=== PATIENT | female | born 1960 | race Caucasian/White ===

== ENCOUNTER 2023-02-19 09:25 | Emergency (ER) | payer MEDICARE, BC, SELFPAY ==
[2023-02-19 09:29] VITALS: BP 142/88; PULSE 82; RESP 18; TEMP 36.9; O2SAT 98; BMI 27.8
--- NOTE | 2023-02-19 09:31 | XR_ITS ---
The [place] [address] Patient Name: TIMOTHY SUAREZ MRN: [id number] date: 1960 Sex: F Assigned Patient Location: ER Current Patient Location: ER Accession/Order Number: [id number] Exam Date: 02/19/2023 09:58 Report Date: 02/19/2023 10:21 At the request of: CARLOS VIRK Procedure: XR wrist LT min 3V STUDY: XR wrist LT min 3V, [id number] HISTORY: INJURY COMPARISON: Correlated with same day forearm x-rays. FINDINGS: No acute fracture, dislocation, or suspicious osseous lesion. Widening of the scapholunate interval with mild advancement of the capitate compatible with scapholunate ligament disruption. Severe osteoarthritis at the first carpometacarpal joint, pnynlshj-qadqzwltk-rhyoudmwm articulation, articulation of the lunate and capitate, and articulation of the scaphoid in the distal radius. There is chondrocalcinosis of the triangular fibrocartilage complex. Multiple well-corticated foci of ossification projecting around wrist which may be the sequela of remote trauma. XR/XR wrist LT min 3V IMPRESSION: No acute osseous abnormality. Electronically authenticated by: LALI ALY Date: 02/19/2023 10:21
--- NOTE | 2023-02-19 09:31 | XR_ITS ---
The [address] [address] Patient Name: TIMOTHY SUAREZ MRN: [id number] date: 1960 Sex: F Assigned Patient Location: ER Current Patient Location: ER Accession/Order Number: [id number] Exam Date: 02/19/2023 09:58 Report Date: 02/19/2023 10:15 At the request of: CARLOS VIRK Procedure: XR forearm LT 2V Exam: Radiographs: XR forearm LT 2V Reason for exam: Injury Comparison: None XR/XR forearm LT 2V IMPRESSION: Widening of the distal radioulnar joint is age indeterminate and could be related to prior injury and/or degenerative change. Advanced left wrist degenerative changes. Left wrist chondrocalcinosis. Remainder of the left forearm is unremarkable. Electronically authenticated by: SINAI ZHENG Date: 02/19/2023 10:15
[2023-02-19 10:07] VITALS: PULSE 88
--- NOTE | 2023-02-19 10:11 | ED.TRAUMA1 ---
HPI - Trauma General Chief Complaint: Extremity Injury, Upper Stated Complaint: ARM PAIN Time Seen by Provider: 02/19/23 10:07 Source: patient Mode of arrival: walk-in Limitations: no limitations History of Present Illness HPI narrative: 63-year-old female presents for an injury to her left arm. Two days ago she was using a battery powered device that mixes up and the blade that turned hit her left, just distal to the elbow. She has pain in the wrist and arm and she noted some redness around wound. Her last tetanus shot was more than ten years ago. It hurts more to move it. Related Data Previous Rx's Medication Instructions Recorded cephalexin 500 mg capsule 500 mg PO QID 10 days #40 caps 02/19/23 Allergies Allergy/AdvReac Type Severity Reaction Status Date / Time Sulfa (Sulfonamide AdvReac Intermediate Verified 02/19/23 09:29 Antibiotics) Review of Systems ROS Narrative A ten point review of systems is negative except as noted above. Exam Narrative Exam Narrative: Nurses note and vital signs reviewed and patient is not hypoxic. General: The patient appears well and in no apparent distress. Patient is resting comfortably on cart. Skin: Warm, dry, no pallor noted. There is no rash noted. Head: Normocephalic, atraumatic Eye: Normal conjunctiva, no drainage Ears, Nose, Mouth, and Throat: oral mucosa is moist. Nares patent. Cardiovascular: Regular Rate and Rhythm Respiratory: Patient is in no distress, no accessory muscle use, lungs are clear to auscultation, no wheezing, rales or rhonchi Back: non-tender GI: soft and nontender Musculoskeletal: left arm is examined. She seems to have some tenderness in her wrist and there is two puncture type wounds on the proximal forearm on the flexor side. There is some mild surrounding erythema extending out approximately 2 inches. . Neurological: A&O, normal speech Psychiatric: Cooperative Constitutional Vital Signs, click to edit/add: Last Vital Signs Temp 98.4 F 02/19/23 09:29 Pulse 88 02/19/23 10:07 Resp 18 02/19/23 09:29 BP 142/88 H 02/19/23 09:29 Pulse Ox 98 02/19/23 09:29 O2 Del Method Room Air 02/19/23 09:29 Course Vital Signs Vital signs: Vital Signs Temperature 98.4 F 02/19/23 09:29 Pulse Rate 82 02/19/23 09:29 Respiratory Rate 18 02/19/23 09:29 Blood Pressure 142/88 H 02/19/23 09:29 Pulse Oximetry 98 02/19/23 09:29 Oxygen Delivery Method Room Air 02/19/23 09:29 Temperature 98.4 F 02/19/23 09:29 Pulse Rate 88 02/19/23 10:07 Respiratory Rate 18 02/19/23 09:29 Blood Pressure 142/88 H 02/19/23 09:29 Pulse Oximetry 98 02/19/23 09:29 Oxygen Delivery Method Room Air 02/19/23 09:29 MDM - Trauma MDM Narrative Medical decision making narrative: X-rays showed no foreign body or definite acute finding. Splint applied, application checked by me and found be appropriate and she is neurovascularly intact. Tetanus updated. She was given IM Ancef and prescribed Keflex. Treatment diagnosis and follow-up were discussed with the patient. Imaging Data left forearm and wrist: Radiologist's impression: Procedure: XR wrist LT min 3V STUDY: XR wrist LT min 3V, [id number] HISTORY: INJURY COMPARISON: Correlated with same day forearm x-rays. FINDINGS: No acute fracture, dislocation, or suspicious osseous lesion. Widening of the scapholunate interval with mild advancement of the capitate compatible with scapholunate ligament disruption. Severe osteoarthritis at the first carpometacarpal joint, xinxsrln-olpnczqqw-vbszgxjnz articulation, articulation of the lunate and capitate, and articulation of the scaphoid in the distal radius. There is chondrocalcinosis of the triangular fibrocartilage complex. Multiple well-corticated foci of ossification projecting around wrist which may be the sequela of remote trauma. IMPRESSION: No acute osseous abnormality. Electronically authenticated by: LALI ALY Date: 02/19/2023 10:21 Procedure: XR forearm LT 2V Exam: Radiographs: XR forearm LT 2V Reason for exam: Injury Comparison: None IMPRESSION: Widening of the distal radioulnar joint is age indeterminate and could be related to prior injury and/or degenerative change. Advanced left wrist degenerative changes. Left wrist chondrocalcinosis. Remainder of the left forearm is unremarkable. Electronically authenticated by: SINAI ZHENG Date: 02/19/2023 10:15 Discharge Plan Discharge Chief Complaint: Extremity Injury, Upper Clinical Impression: Cellulitis of forearm Patient Disposition: Home, Self-Care Time of Disposition Decision: 10:30 Condition: Good Mode of Transportation: Private Vehicle Prescriptions / Home Meds: New cephalexin 500 mg capsule 500 mg PO QID 10 Days Qty: 40 0RF Instructions: Cellulitis (ED) Stand Alone Forms: Portal Instructions Referrals: ASHANTI GARCIA [Primary Care Provider] - 1 week
[2023-02-19] MEDS: ADACEL DIPH,PERTUSS(ACELL),TET VAC/PF 0.5 ML ADULT SYRINGE IM (10:39)
[2023-02-19] MEDS: CEFAZOLIN SODIUM 1,000 MG, WATER FOR INJECTION,STERILE 2.5 ML IM (10:40)
[2023-02-19 10:53] VITALS: BP 126/88; PULSE 72; RESP 16; O2SAT 99
== END 2023-02-19 10:55 | disposition home or self-care (01) ==
PROVIDERS: Emergency Provider Emergency Medicine; PCP Family Medicine
DX: L03.114 Cellulitis of left upper limb (principal); S51.832A Puncture wound without foreign body of left forearm, initial encounter; Z23 Encounter for immunization; W22.8XXA Striking against or struck by other objects, initial encounter
CPT/HCPCS: 73090; 73110; 90471; 90715; 96372; 99284

== ENCOUNTER 2023-07-05 15:19 | Emergency (ER) | payer MEDICARE, BC, SELFPAY ==
[2023-07-05 15:24] VITALS: BP 142/85; PULSE 100; RESP 18; TEMP 36.8; O2SAT 96; BMI 25.1
[2023-07-05] MEDS: FLUORESCEIN SODIUM 1 MG STRIP OP (15:54)
--- NOTE | 2023-07-05 16:09 | ED_ITS ---
HPI - Eye Problem General Chief complaint: Eye Problems Stated complaint: POSS METAL IN EYE Time Seen by Provider: 07/05/23 15:46 Source: patient Mode of arrival: walk-in History of Present Illness HPI Narrative: 63-year-old female presents for right eye discomfort. She was using a Dremel and a piece of metal flew up into her right eye. She flushed it out right away but still has some discomfort. It feels like it is in the medial corner of her eye. No symptoms in the left eye and this happened less than an hour ago. Related Data Home Medications Medication Instructions Recorded Confirmed acyclovir 400 mg tablet 400 mg PO BID 07/05/23 07/05/23 amitriptyline 25 mg tablet 50 mg PO QPM 07/05/23 07/05/23 cyclobenzaprine 10 mg tablet 20 mg PO TID 07/05/23 07/05/23 etanercept 25 mg/0.5 mL 25 mg subcut .BIDWEEK 07/05/23 07/05/23 subcutaneous solution (Enbrel) gabapentin 300 mg capsule 600 mg PO TID 07/05/23 07/05/23 glimepiride 1 mg tablet 1 mg PO QAM 07/05/23 07/05/23 hydrocodone 5 mg-acetaminophen 325 1 tab PO QID 07/05/23 07/05/23 mg tablet lisinopril 40 mg tablet 40 mg PO DAILY 07/05/23 07/05/23 omeprazole 20 mg capsule,delayed 20 mg PO BID 07/05/23 07/05/23 release Previous Rx's Medication Instructions Recorded ciprofloxacin HCl 0.3 % eye drops 2 drp ophthalmic (eye) Q4H 5 days 07/05/23 #5 mL Allergies Allergy/AdvReac Type Severity Reaction Status Date / Time Sulfa (Sulfonamide AdvReac Intermediate Verified 02/19/23 09:29 Antibiotics) Review of Systems ROS Narrative A ten point review of systems is negative except as noted above. Exam Narrative Exam Narrative: Nurses note and vital signs reviewed and patient is not hypoxic. General: The patient appears well and in no apparent distress. Patient is resting comfortably on cart. Skin: Warm, dry, no pallor noted. There is no rash noted. Head: Normocephalic, atraumatic Eye: Normal conjunctiva, no drainage; lid eversion of the right eyes shows no foreign body. Staining and Reich lamp exam as well as slit-lamp exam shows no corneal abrasion or any foreign body anywhere. Ears, Nose, Mouth, and Throat: oral mucosa is moist. Nares patent. Cardiovascular: Regular Rate and Rhythm Respiratory: Patient is in no distress, no accessory muscle use, lungs are benny ar to auscultation, no wheezing, rales or rhonchi Back: non-tender GI: Soft and nontender Musculoskeletal: The patient has no evidence of calf tenderness, no pitting edema, symmetrical pulses noted bilaterally Neurological: A&O, normal speech Psychiatric: Cooperative Constitutional Vital Signs, click to edit/add: Last Vital Signs Temp 98.2 F 07/05/23 15:24 Pulse 100 H 07/05/23 15:24 Resp 18 07/05/23 15:24 BP 142/85 H 07/05/23 15:24 Pulse Ox 96 07/05/23 15:24 O2 Del Method Room Air 07/05/23 15:24 Course Vital Signs Vital signs: Vital Signs Temperature 98.2 F 07/05/23 15:24 Pulse Rate 100 H 07/05/23 15:24 Respiratory Rate 18 07/05/23 15:24 Blood Pressure 142/85 H 07/05/23 15:24 Pulse Oximetry 96 07/05/23 15:24 Oxygen Delivery Method Room Air 07/05/23 15:24 Temperature 98.2 F 07/05/23 15:24 Pulse Rate 100 H 07/05/23 15:24 Respiratory Rate 18 07/05/23 15:24 Blood Pressure 142/85 H 07/05/23 15:24 Pulse Oximetry 96 07/05/23 15:24 Oxygen Delivery Method Room Air 07/05/23 15:24 MDM - Eye Problem MDM Narrative Medical decision making narrative: No foreign body or corneal abrasion is found. Treatment diagnosis and follow-up were discussed with the patient Differential Diagnosis Differential diagnosis: Likely corneal abrasion and other (Foreign body) Discharge Plan Discharge Chief Complaint: Eye Problems Clinical Impression: Acute right eye pain Patient Disposition: Home, Self-Care Time of Disposition Decision: 16:05 Condition: Good Mode of Transportation: Private Vehicle Prescriptions / Home Meds: New ciprofloxacin HCl 0.3 % drops 2 drp ophthalmic (eye) Q4H 5 Days Qty: 5 0RF No Action amitriptyline 25 mg tablet 50 mg PO QPM cyclobenzaprine 10 mg tablet 20 mg PO TID gabapentin 300 mg capsule 600 mg PO TID glimepiride 1 mg tablet 1 mg PO QAM hydrocodone-acetaminophen 5-325 mg tablet 1 tab PO QID lisinopril 40 mg tablet 40 mg PO DAILY omeprazole 20 mg capsule,delayed release(DR/EC) 20 mg PO BID Enbrel 25 mg/0.5 mL solution 25 mg subcut .BIDWEEK acyclovir 400 mg tablet 400 mg PO BID Instructions: Eye Pain (ED) Stand Alone Forms: Portal Instructions Referrals: ASAHNTI GARCIA [Primary Care Provider] - 1 week
== END 2023-07-05 16:18 | disposition home or self-care (01) ==
PROVIDERS: Emergency Provider Emergency Medicine; PCP Family Medicine
DX: H57.11 Ocular pain, right eye (principal); Z79.899 Other long term (current) drug therapy
CPT/HCPCS: 99283

== ENCOUNTER 2025-01-19 14:34 | Emergency (ER) | payer MEDICARE, BC, SELFPAY ==
[2025-01-19 14:40] VITALS: BP 163/91; PULSE 107; TEMP 36.9; O2SAT 96; BMI 23.5
--- NOTE | 2025-01-19 14:50 | XR_ITS ---
[facility] [place] [id number] Patient Name: TIMOTHY SUAREZ MRN: [id number] date: 1960 Sex: F Assigned Patient Location: ER Current Patient Location: ER Accession/Order Number: [id number] Exam Date: 01/19/2025 15:22 Report Date: 01/19/2025 15:24 At the request of: JUNIOR ESPITIA DO Procedure: XR wrist RT min 3V 3 views right wrist plain film COMPARISON: None HISTORY: Acute right wrist pain injury. ACUTE FINDINGS: None DEGENERATIVE CHANGE: Extensive degeneration greatest in the first carpometacarpal region., Calcinosis. SOFT TISSUE FINDINGS: Unremarkable JOINT EFFUSION: None POSTOP CHANGES: None BONE MINERALIZATION: Adequate XR/XR wrist RT min 3V IMPRESSION: No acute bony findings. Impression dictated by: Theodore Schumacher M.D. 01/19/2025 3:24 PM Dictation Location: [place] [address] Electronically authenticated by: [id number] Y Date: 01/19/2025 15:24
[2025-01-19] MEDS: KETOROLAC TROMETHAMINE 30 MG/ML VIAL IM (15:23)
--- NOTE | 2025-01-19 15:43 | ED.UPPEXIN1 ---
HPI HPI - Extremity Injury (Upper) General Chief Complaint: Extremity Injury, Upper Stated Complaint: R ARM PAIN Time Seen by Provider: 01/19/25 14:41 Source: patient Mode of arrival: walk-in Limitations: no limitations History of Present Illness HPI narrative: Patient is a 64-year-old kyzlk-dupv-xevzdnde female who presents to the emergency department for entire right upper extremity discomfort. States that she was putting a screw inside of a deck board when it caught her work glove and she could not get her finger off of the trigger for the drill and it continued to wrap her arm around. She felt like she tore every ligament and muscle in her arm. She has full range of motion to the arm she feels like she disarticulated the wrist and thumb right off of her hand. 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 She does not want to violate her contract. Patient did not take anything additional for pain prior to coming in. Pain radiates from her wrist down into her hand and up into her shoulder. Related Data Home Medications ?Medication ?Instructions ?Recorded ?Confirmed acyclovir 400 mg tablet 400 mg PO BID 07/05/23 07/05/23 amitriptyline 25 mg tablet 50 mg PO QPM 07/05/23 07/05/23 cyclobenzaprine 10 mg tablet 20 mg PO TID 07/05/23 07/05/23 etanercept 25 mg/0.5 mL 25 mg subcut .BIDWEEK 07/05/23 07/05/23 subcutaneous solution (Enbrel) gabapentin 300 mg capsule 600 mg PO TID 07/05/23 07/05/23 glimepiride 1 mg tablet 1 mg PO QAM 07/05/23 07/05/23 hydrocodone 5 mg-acetaminophen 325 1 tab PO QID 07/05/23 07/05/23 mg tablet lisinopril 40 mg tablet 40 mg PO DAILY 07/05/23 07/05/23 omeprazole 20 mg capsule,delayed 20 mg PO BID 07/05/23 07/05/23 release Previous Rx's ?Medication ?Instructions ?Recorded ciprofloxacin HCl 0.3 % eye drops 2 drp ophthalmic (eye) Q4H 5 days 07/05/23 #5 mL Allergies Allergy/AdvReac Type Severity Reaction Status Date / Time Sulfa (Sulfonamide AdvReac Intermediate Verified 02/19/23 09:29 Antibiotics) Opioid HPI Opioid Management Most Recent Pain and Opioid Data: Last Pain Scale 7 Today, 15:28 Last MAR Pain Assessment Today, 15:23 Review of Systems ROS Narrative 10 Systems were reviewed, and unless noted in the HPI, all other systems are reviewed, unremarkable, or noncontributory. PFSH PFS Social History Little interest or pleasure in doing things: not at all Feeling down, depressed, or hopeless: not at all Exam Narrative Exam Narrative: Prior to examining the patient, I have washed with hospital approved and provided Antiseptic Hand Lye Treater and have also applied gloves.? Prior to touching the patient, I asked for consent to examine the patient.? General: Alert and oriented, well nourished, mild distress. Eye: PERRL, EOMI, normal conjunctiva. HENT: Normocephalic, normal hearing, moist oral mucosa, no scleral icterus, no sinus tenderness. Lungs: Clear to auscultation and percussion, non-labored respiration. Heart: Normal rate, regular rhythm, no murmur, gallop or edema. Musculoskeletal: Normal range of motion and strength, no tenderness or swelling. Normal range of motion albeit painful range of motion. I do not appreciate any edema or gross deformity. Patient does have pain to palpation to the wrist and distal forearm. Skin: Skin is warm, dry and pink, no rashes or lesions. Neurologic: Awake, alert, and oriented X3, CN II-XII intact. Psychiatric: Cooperative, appropriate mood and affect.? Following the conclusion of the examination, I have washed my hands thoroughly after removing examination gloves. Constitutional Vital Signs, click to edit/add: Last Vital Signs Temp 98.4 F 01/19/25 14:40 Pulse 107 H 01/19/25 14:40 Resp 18 01/19/25 14:40 BP 163/91 H 01/19/25 14:40 Pulse Ox 96 01/19/25 14:40 O2 Del Method Room Air 01/19/25 14:40 Course Reevaluation(s) Reevaluation #1: Pain that was evaluated by me. I did review the board-certified radiologist report. She has a lot of degenerative changes of the bone and calcinosis but no evidence of fractures or dislocations. Went back and described this to the patient. Patient understands that ligaments will not be visualized nor tendons on a regular x-ray. Patient wants to see an orthopedic surgeon in the emergency department to make sure that she is not going to develop any limitations in range of motion. I did tell the patient that that is not possible in the emergency department that we could give her a referral but that they would not be coming to the emergency department. There is no need for emergent transfer at this time. I offered the patient a brace to keep her hand stabilized and she said that she had braces at home that she was not interested in getting another one here. 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 She genuinely is afraid of losing function of her right upper extremity because her left wrist has a lot of arthritis it is cause some limitations in her strength and range of motion. Time: 15:44 Vital Signs Vital signs: Vital Signs Temperature 98.4 F 01/19/25 14:40 Pulse Rate 107 H 01/19/25 14:40 Respiratory Rate 18 01/19/25 14:40 Blood Pressure 163/91 H 01/19/25 14:40 Pulse Oximetry 96 01/19/25 14:40 Oxygen Delivery Method Room Air 01/19/25 14:40 Temperature 98.4 F 01/19/25 14:40 Pulse Rate 107 H 01/19/25 14:40 Respiratory Rate 18 01/19/25 14:40 Blood Pressure 163/91 H 01/19/25 14:40 Pulse Oximetry 96 01/19/25 14:40 Oxygen Delivery Method Room Air 01/19/25 14:40 MDM - Extremity Injury (Upper) MDM Narrative Medical decision making narrative: In summary, the patient had a mechanical injury to her right upper extremity. She is right-hand dominant. No fracture, dislocation, subluxation is appreciated. Patient will likely need to follow-up with an orthopedic surgeon or primary medical physician to obtain physical therapy and or an MRI for continued diagnostics. Patient blames not getting imaging on an injury she had many years ago and is now having problems. Differential Diagnosis Differential diagnosis: Likely sprain and strain of wrist, fracture of wrist, finger sprain, dislocation of finger, fracture of hand and dislocation of shoulder Medical Records Attestation: I reviewed the patient's medical records. Imaging Data XR Wrist: Radiologist's impression: ITS Impressions Wrist X-Ray 01/19/25 14:50 IMPRESSION: No acute bony findings. Impression dictated by: Theodore Schumacher M.D. 01/19/2025 3:24 PM [facility] Electron[facility] authenticated by: [id number] Y Date: 01/19/2025 15:24 Discharge Plan Discharge Chief Complaint: Extremity Injury, Upper Clinical Impression: Strain of tendon of upper extremity, Injury of wrist, right Patient Disposition: Home, Self-Care Time of Disposition Decision: 15:48 Condition: Good Mode of Transportation: Private Vehicle Prescriptions / Home Meds: No Action amitriptyline 25 mg tablet 50 mg PO QPM cyclobenzaprine 10 mg tablet 20 mg PO TID gabapentin 300 mg capsule 600 mg PO TID glimepiride 1 mg tablet 1 mg PO QAM hydrocodone-acetaminophen 5-325 mg tablet 1 tab PO QID lisinopril 40 mg tablet 40 mg PO DAILY omeprazole 20 mg capsule,delayed release(DR/EC) 20 mg PO BID Enbrel 25 mg/0.5 mL solution 25 mg subcut .BIDWEEK acyclovir 400 mg tablet 400 mg PO BID ciprofloxacin HCl 0.3 % drops 2 drp ophthalmic (eye) Q4H 5 Days Qty: 5 0RF Print Language: Finnish Instructions: Muscle Strain (DC), Wrist Sprain (ED) Referrals: ASHANTI GARCIA [Primary Care Provider, Family Practice] - 1 week Discharge Date/Time: 01/19/25 16:17
--- NOTE | 2025-01-19 16:16 | PC.NURSE ---
upon entry to pts room, room found to be empty. pt was discharged home per Dr. Arboleda, pt left prior to receiving discharge papers.
--- OUTSIDE RECORDS SUMMARY | 2025-01-19 16:19 | XMS_ITS | CCD ---
Author Organization [facility] Inform ion Partnership [facility] Care Team Providers Care Training Mgr Name Role Phone Allsop Katie CHAUDHARY Primary Care Provider [phone] Danni Sharp Unavailable AllsoKatie barkley DO Primary Care Provider AllsoKatie barkley DO Primary Care Provider [phone] Allsop DOKatie Primary Care Provider RAFAELA CASH Referring Unavailable DEAN, PARISH Primary Care Unavailable Allsop DOKatie Primary Care Provider Unav ailable Allsop DOKatie Primary Care Provider Unav ailable Dean LOAD MANAGER-VETERINARY ASSISTANT, Parish Primary Care Provider Dean LOAD MANAGER-VETERINARY ASSISTANT, Parish Primary Care Provider Allsop DOKatie Primary Care Provider Pcp, Not In System Primary Care Provider Unavail able Unavailable Primary Care Provider Unavailabl e Dean LOAD MANAGER-VETERINARY ASSISTANT, [place] Primary Care Provider DEAN, PARISH Attending Unavailable DEAN, PARISH Primary Care Unavailable DEAN, PARISH Attending Unavailable DEAN, PARISH Referring Unavailable DEAN, PARISH Primary Care Unavailable DEAN, PARISH Attending Unavailable DEAN, PARISH Referring Unavailable DEAN, PARISH Primary Care Unavailable DEAN, PARISH Attending Unavailable DEAN, PARISH Referring Unavailable DEAN, PARISH Primary Care Unavailable SHANNA JOHNSON Attending Unavailable JOHNSON, SHANNA W Attending Unavailable JOHNSON, SHANNA W Referring Unavailable JOHNSON, SHANNA W Attending Unavailable ELIANA TORRES Attending Unavailab le ALLSOP, KATIE MARYAM Primary Care Unavailab EUGENIO Garzon Attending Unavailable ALLSOP, KATIE MARYAM Primary Care Unavailab le EUGENIO ELLIS Attending Unavailable DEAN, PARISH Referring Unavailable DEAN, PARISH Primary Care Unavailable DEAN, PARISH Primary Care Unavailable RAFAELA CASH Attending Unavailable ALLSOPKATIE Referring Unavailable DEAN, PARISH Primary Care Unavailable SKY HEMPHILL Admitting Unavailable SKY HEMPHILL Attending Unavailable ALLSOPKATIE Referring Unavailable DEAN, PARISH Primary Care Unavailable SKY HEMPHILL Attending Unavailable SKY HEMPHILL Referring Unavailable DEAN, PARISH Referring Unavailable DEAN, PARISH Primary Care Unavailable NICAROL, RAFAELA Terrazas Attending Unavailable DEAN, PARISH Primary Care Unavailable EUGENIO ELLIS Referring Unavailable DEAN, PARISH Primary Care Unavailable SKY HEMPHILL Attending Unavailable SKY HEMPHILL Referring Unavailable DEAN, PARISH Referring Unavailable DEAN, PARISH Primary Care Unavailable SKY HEMPHILL Attending Unavailable SKY HEMPHILL Admitting Unavailable DEAN, PARISH Referring Unavailable DEAN, PARISH Primary Care Unavailable NICAROL, RAFAELA Terrazas Attending Unavailable DEAN, PARISH Primary Care Unavailable DEAN, PARISH Referring Unavailable SKY HMEPHILL Admitting Unavailable SKY HEMPHILL Attending Unavailable DEAN, PARISH Primary Care Unavailable SKY HEMPHILL Attending Unavailable SKY HEMPHILL Referring Unavailable DEAN, PARISH Primary Care Unavailable DEAN, PARISH Primary Care Unavailable DEAN, PARISH Referring Unavailable NIRAFAELA NAJERA Attending Unavailable DEAN, PARISH Primary Care Unavailable DEAN, PARISH Referring Unavailable SKY HEMPHILL Admitting Unavailable SKY HEMPHILL Attending Unavailable DEAN, PARISH Primary Care Unavailable SKY HEMPHILL Attending Unavailable SKY HEMPHILL Referring Unavailable DEAN, PARISH Primary Care Unavailable DEAN, PARISH Referring Unavailable NIRAFAELA NAJERA Attending Unavailable DEAN, PARISH Primary Care Unavailable ANNETTE CASHEW S Referring Unavailable NICAROL, RAFAELA Terrazas Attending Unavailable DEAN, PARISH Referring Unavailable DEAN, PARISH Primary Care Unavailable SKY HEMPHILL Admitting Unavailable SKY HEMPHILL Attending Unavailable DEAN, PARISH Primary Care Unavailable HEMPHILL, SKY Mosqueda Attending Unavailable HEMPHILLSKY BURNS Referring Unavailable CALEBEUGENIO Referring Unavailable DEAN, PARISH Primary Care Unavailable DEAN, PARISH Referring Unavailable DEAN, PARISH Primary Care Unavailable NIENBERG, RAFAELA Terrazas Attending Unavailable DEAN, PARISH Referring Unavailable DEAN, PARISH Primary Care Unavailable HEMPHILLSKY Attending Unavailable HEMPHILL, SKY Mosqueda Admitting Unavailable DEAN, PARISH Primary Care Unavailable SKY HEMPHILL Referring Unavailable HEMPHILLSKY Attending Unavailable DEAN, PARISH Primary Care Unavailable NIENBERG, RAFAELA Terrazas Attending Unavailable NIENBERG, RAFAELA Terrazas Referring Unavailable DEAN, PARISH Referring Unavailable DEAN, PARISH Primary Care Unavailable NIENBERG, RAFAELA Terrazas Attending Unavailable DEAN, PARISH Referring Unavailable DEAN, PARISH Primary Care Unavailable SKY HEMPHILL Attending Unavailable HEMPHILLSKY BURNS Admitting Unavailable DEAN, PARISH Primary Care Unavailable SKY HEMPHILL Referring Unavailable HEMPHILLSKY Attending Unavailable DEAN, PARISH Referring Unavailable DEAN, PARISH Primary Care Unavailable NIENBERG, RAFAELA Terrazas Attending Unavailable DEAN, PARISH Primary Care Unavailable NICAROL, RAFAELA Terrazas Attending Unavailable NICAROL, RAFAELA Terrazas Referring Unavailable CALEBSABAST Referring Unavailable DEAN, PARISH Primary Care Unavailable DEAN, PARISH Referring Unavailable DEAN, PARISH Primary Care Unavailable SKY HEMPHILL Admitting Unavailable SKY HEMPHILL Attending Unavailable DEAN, PARISH Primary Care Unavailable SKY HEMPHILL Referring Unavailable HEMPHILLSKY Attending Unavailable DEAN, PARISH Referring Unavailable DEAN, PARISH Primary Care Unavailable NIENBERG, RAFAELA Terrazas Attending Unavailable DEAN, PARISH Primary Care Unavailable Allergies Allergy Classification Reported Allergen(s) Allergy Type Date of Onset Reaction(s) Facility Cinnamon Preparation (4 sources) Cinnamon Preparation Drug Allergy 03-06-20 14 Swelling [facility] Coconut extract (4 sources) Coconut extract Drug Allergy 12-16-19 16 GI Upset [facility] Dust (4 sources) Dust Substance Allergy 06-29-19 11 Other: See Comments [facility] Work Phone: Lactase (4 sources) Lactase Drug Allergy 08-06-19 14 GI Upset [facility] leflunomide (4 sources) leflunomide Drug Allergy 08-24-19 21 Intolerance [facility] Work Phone: Shellfish (4 sources) Shellfish Food Allergy 06-29-19 11 Other: See Comments [facility] sulfaSALAzine (4 sources) sulfaSALAzine Drug Allergy 12-05-19 12 Unknown [facility] Work Phone: (20 sources) Cinnamon Preparation; Translations: [CINNAMON] Drug Allergy 03-06-20 14 Swelling [facility] (20 sources) Coconut extract; Translations: [COCONUT] Drug Allergy 12-16-19 16 GI Upset, Swelling [facility] (20 sources) Dust; Translations: [DUST] Allergy to substance 06-29-19 11 Other: See Comments [facility] Work Phone: (20 sources) Lactase; Translations: [LACTASE] Drug Allergy 08-06-19 14 GI Upset, GI Disturbance [facility] (20 sources) leflunomide; Translations: [LEFLUNOMIDE] Drug Allergy 08-24-19 21 Intolerance [facility] Work Phone: (20 sources) Shellfish; Translations: [Shellfish] Food Allergy 06-29-19 11 Other: See Comments [facility] Work Phone: (20 sources) sulfaSALAzine; Translations: [SULFASALAZINE] Drug Allergy 12-05-19 12 Unknown [facility] Work Phone: (20 sources) Tree; Translations: [TREES] Allergy to substance 06-29-19 11 Unknown [facility] Work Phone: (20 sources) Propoxyphene N-Acetaminophen; Translations: [PROPOXYPHENE N-ACETAMINOPHEN] Drug Intolerance 08-30-19 11 Other: See Comments, Other (See Comments) [facility] (20 sources) tree nuts [Other] Propensity to adverse reactions 06-29-19 11 Other: See Comments [facility] Work Phone: (20 sources) Acetaminophen / oxyCODONE Drug Allergy 07-20-[address] [facility] (1 source) Acetaminophen / Propoxyphene Drug Allergy Unknown [facility] Other (1 source) Sulfonamides (Antibiotic) Propensity to adverse reactions rash [facility] Other (1 source) Tree nuts/ coconut Propensity to adverse reactions vomiting [facility] Other (20 sources) tree nut, unspecified; Translations: [TREE NUTS] Drug Intolerance 10-20-19 17 Intolerance, Abdominal Pain [facility] (14 sources) Acetaminophen / oxyCODONE; Translations: [OXYCODONE-ACETA MINOPHEN] Drug Allergy 07-20-19 22 [facility] (20 sources) house dust allergenic extract; Translations: [HOUSE DUST] Drug Allergy 06-29-19 11 [facility] (20 sources) Sulfonamides (Antibiotic); Translations: [SULFA (SULFONAMIDE ANTIBIOTICS)] Propensity to adverse reactions to drug (disorder) 10-20-19 17 Anaphylaxis [facility] (20 sources) tiZANidine; Translations: [TIZANIDINE (BULK)] Drug Allergy 10-20-19 17 Abdominal Pain [facility] (3 sources) CINNAMON ANALOGUES; Translations: [CINNAMON ANALOGUES] Propensity to adverse reactions to food (disorder) 10-20-19 17 [facility] (20 sources) SHELLFISH CONTAINING PRODUCTS; Translations: [SHELLFISH CONTAINING PRODUCTS] Propensity to adverse reactions to food (disorder) 10-20-19 17 Abdominal Pain [facility] (11 sources) Coconut extract Drug Allergy 12-16-19 16 [facility] (11 sources) House dust mite Propensity to adverse reactions 06-29-19 11 [facility] (11 sources) leflunomide Drug Allergy 08-24-19 21 [facility] (11 sources) Propoxyphene Drug Allergy 08-30-19 11 [facility] (11 sources) Sulfasalazine Propensity to adverse reactions 12-05-19 12 [facility] (11 sources) Sulfonamides (Antibiotic) Drug Intolerance 10-20-19 17 Anaphylaxis, Rash [facility] (11 sources) tiZANidine Drug Allergy 10-20-19 17 [facility] (11 sources) Coconut Fatty Acid Propensity to adverse reactions 12-16-19 16 Swelling [facility] (11 sources) Other Propensity to adverse reactions 10-20-19 17 GI intolerance [facility] (11 sources) Shellfish-Derive d Products Drug Allergy 03-22-20 23 [facility] Medications Current Medications Medication Drug Class(es) Dates Sig (Normalized) Sig (Original) acetaminophen 500 mg oral tablet (17 sources) take 2 tablets by mouth once daily as needed for pain acetaminophen (TYLENOL EXTRA STRENGTH) 500 mg tablet Take 2 tablets (1,000 mg total) by mouth nightly as needed for pain. Active acetaminophen 325 mg / HYDROcodone bitartrate 5 mg oral tablet (20 sources) Opioid Agonist Start: 01-05-2025 HYDROcodone-acetami nophen (NORCO) 5-325 mg per tablet Indications: Lumbosacral spondylosis without myelopathy Take 1 tablet by mouth 4 (four) times a day as needed for pain. Max Daily Amount: 4 tablets 120 tablet 01/05/2025 Active Start: 01-05-2025 HYDROcodone-ac etaminophen (NORCO) 5-325 mg per tablet Indications: Lumbosacral spondylosis without myelopathy Take 1 tablet by mouth 4 (four) times a day as needed for pain. Max Daily Amount: 4 tablets 120 tablet 01/05/2025 Active Start: 12-06-2024 End: 01-01-2025 HYDROcodone-acetaminophen (N ORCO) 5-325 mg per tablet Indications: Lumbosacral spondylosis without myelopathy Take 1 tablet by mouth 4 (four) times a day as needed for pain. Max Daily Amount: 4 tablets 120 tablet 12/06/2024 01/01/2025 Discontinued (Reorder) Start: 12-06-2024 HYDROcodone-ac etaminophen (NORCO) 5-325 mg per tablet Indications: Lumbosacral spondylosis without myelopathy Take 1 tablet by mouth 4 (four) times a day as needed for pain. Max Daily Amount: 4 tablets 120 tablet 12/06/2024 Active Start: 11-06-2024 End: 11-25-2024 HYDROcodone-acetaminophen (N ORCO) 5-325 mg per tablet Indications: Lumbosacral spondylosis without myelopathy Take 1 tablet by mouth 4 (four) times a day as needed for pain. Max Daily Amount: 4 tablets 120 tablet 11/06/2024 11/25/2024 Discontinued (Reorder) Start: 11-06-2024 End: 11-04-2024 HYDROcodone-acetaminophen (N ORCO) 5-325 mg per tablet Indications: Lumbosacral spondylosis without myelopathy Take 1 tablet by mouth 4 (four) times a day as needed for pain. Max Daily Amount: 4 tablets 120 tablet 11/06/2024 11/04/2024 Discontinued (Reorder) Start: 10-05-2024 End: 10-02-2024 HYDROcodone-acetaminophen (N ORCO) 5-325 mg per tablet Indications: Lumbosacral spondylosis without myelopathy Take 1 tablet by mouth 4 (four) times a day as needed for pain. Max Daily Amount: 4 tablets 120 tablet 10/05/2024 10/02/2024 Discontinued (Reorder) Start: 10-05-2024 HYDROcodone-ac etaminophen (NORCO) 5-325 mg per tablet Indications: Lumbosacral spondylosis without myelopathy Take 1 tablet by mouth 4 (four) times a day as needed for pain. Max Daily Amount: 4 tablets 120 tablet 10/05/2024 Active Start: 10-05-2024 HYDROcodone-ac etaminophen (NORCO) 5-325 mg per tablet Indications: Lumbosacral spondylosis without myelopathy Take 1 tablet by mouth 4 (four) times a day as needed for pain. Max Daily Amount: 4 tablets 120 tablet 10/05/2024 Active Start: 09-05-2024 End: 09-23-2024 HYDROcodone-acetaminophen (N ORCO) 5-325 mg per tablet Indications: Lumbosacral spondylosis without myelopathy Take 1 tablet by mouth 4 (four) times a day as needed for pain. Max Daily Amount: 4 tablets 120 tablet 09/05/2024 09/23/2024 Discontinued (Reorder) Start: 09-05-2024 HYDROcodone-ac etaminophen (NORCO) 5-325 mg per tablet Indications: Lumbosacral spondylosis without myelopathy Take 1 tablet by mouth 4 (four) times a day as needed for pain. Max Daily Amount: 4 tablets 120 tablet 09/05/2024 Active Start: 08-06-2024 End: 09-02-2024 HYDROcodone-acetaminophen (N ORCO) 5-325 mg per tablet Indications: Lumbosacral spondylosis without myelopathy Take 1 tablet by mouth 4 (four) times a day as needed for pain. Max Daily Amount: 4 tablets 120 tablet 08/06/2024 09/02/2024 Discontinued (Reorder) Start: 08-06-2024 HYDROcodone-ac etaminophen (NORCO) 5-325 mg per tablet Indications: Lumbosacral spondylosis without myelopathy Take 1 tablet by mouth 4 (four) times a day as needed for pain. Max Daily Amount: 4 tablets 120 tablet 08/06/2024 Active Start: 07-06-2024 End: 08-01-2024 HYDROcodone-acetaminophen (N ORCO) 5-325 mg per tablet Indications: Lumbosacral spondylosis without myelopathy Take 1 tablet by mouth 4 (four) times a day as needed for pain. Max Daily Amount: 4 tablets 120 tablet 07/07/2024 08/01/2024 Discontinued (Reorder) Start: 07-06-2024 HYDROcodone-ac etaminophen (NORCO) 5-325 mg per tablet Indications: Lumbosacral spondylosis without myelopathy Take 1 tablet by mouth 4 (four) times a day as needed for pain. 07/06/2024 fill date Max Daily Amount: 4 tablets 120 tablet 07/06/2024 Active Start: 04-06-2024 End: 06-26-2024 HYDROcodone-acetaminophen (N ORCO) 5-325 mg per tablet Indications: Lumbosacral spondylosis without myelopathy Take 1 tablet by mouth 4 (four) times a day as needed for pain. Max Daily Amount: 4 tablets 120 tablet 05/07/2024 Active Start: 04-06-2024 HYDROcodone-ac etaminophen (NORCO) 5-325 mg per tablet Indications: Lumbosacral spondylosis without myelopathy Take 1 tablet by mouth 4 (four) times a day as needed for pain. Max Daily Amount: 4 tablets 120 tablet 04/06/2024 Active Start: 03-07-2024 End: 03-21-2024 HYDROcodone-acetaminophen (N ORCO) 5-325 mg per tablet Indications: Lumbosacral spondylosis without myelopathy Take 1 tablet by mouth 4 (four) times a day as needed for pain. Max Daily Amount: 4 tablets 120 tablet 03/07/2024 03/21/2024 Discontinued (Reorder) Start: 03-07-2024 HYDROcodone-ac etaminophen (NORCO) 5-325 mg per tablet Indications: Lumbosacral spondylosis without myelopathy Take 1 tablet by mouth 4 (four) times a day as needed for pain. Max Daily Amount: 4 tablets 120 tablet 03/07/2024 Active Start: 02-06-2024 End: 03-04-2024 HYDROcodone-acetaminophen (N ORCO) 5-325 mg per tablet Indications: Lumbosacral spondylosis without myelopathy Take 1 tablet by mouth 4 (four) times a day as needed for pain. Max Daily Amount: 4 tablets 120 tablet 02/06/2024 03/04/2024 Discontinued (Reorder) Start: 02-06-2024 HYDROcodone-ac etaminophen (NORCO) 5-325 mg per tablet Indications: Lumbosacral spondylosis without myelopathy Take 1 tablet by mouth 4 (four) times a day as needed for pain. Max Daily Amount: 4 tablets 120 tablet 02/06/2024 Active Start: 01-05-2024 End: 02-01-2024 HYDROcodone-acetaminophen (N ORCO) 5-325 mg per tablet Indications: Lumbosacral spondylosis without myelopathy Take 1 tablet by mouth 4 (four) times a day as needed for pain. Max Daily Amount: 4 tablets 120 tablet 01/05/2024 02/01/2024 Discontinued (Reorder) Start: 01-05-2024 HYDROcodone-ac etaminophen (NORCO) 5-325 mg per tablet Indications: Lumbosacral spondylosis without myelopathy Take 1 tablet by mouth 4 (four) times a day as needed for pain. Max Daily Amount: 4 tablets 120 tablet 01/05/2024 Active Start: 12-06-2023 End: 12-25-2023 HYDROcodone-acetaminophen (N ORCO) 5-325 mg per tablet Indications: Lumbosacral spondylosis without myelopathy Take 1 tablet by mouth 4 (four) times a day as needed for pain. Max Daily Amount: 4 tablets 120 tablet 12/06/2023 12/25/2023 Discontinued (Reorder) Start: 12-06-2023 End: 12-03-2023 HYDROcodone-acetaminophen (N ORCO) 5-325 mg per tablet Indications: Lumbosacral spondylosis without myelopathy Take 1 tablet by mouth 4 (four) times a day as needed for pain. Max Daily Amount: 4 tablets 120 tablet 12/06/2023 12/03/2023 Discontinued Start: 12-06-2023 HYDROcodone-ac etaminophen (NORCO) 5-325 mg per tablet Indications: Lumbosacral spondylosis without myelopathy Take 1 tablet by mouth 4 (four) times a day as needed for pain. Max Daily Amount: 4 tablets 120 tablet 12/06/2023 Active Start: 10-06-2023 End: 11-30-2023 HYDROcodone-acetaminophen (N ORCO) 5-325 mg per tablet Indications: Lumbosacral spondylosis without myelopathy Take 1 tablet by mouth 4 (four) times a day as needed for pain. Max Daily Amount: 4 tablets 120 tablet 11/06/2023 11/30/2023 Discontinued (Reorder) Start: 10-06-2023 HYDROcodone-ac etaminophen (NORCO) 5-325 mg per tablet Indications: Lumbosacral spondylosis without myelopathy Take 1 tablet by mouth 4 (four) times a day as needed for pain. Max Daily Amount: 4 tablets 120 tablet 10/06/2023 Active Start: 08-06-2023 End: 10-03-2023 HYDROcodone-acetaminophen (N ORCO) 5-325 mg per tablet Indications: Lumbosacral spondylosis without myelopathy Take 1 tablet by mouth 4 (four) times a day as needed for pain. Max Daily Amount: 4 tablets 120 tablet 09/06/2023 10/03/2023 Discontinued (Reorder) Start: 08-06-2023 HYDROcodone-ac etaminophen (NORCO) 5-325 mg per tablet Indications: Lumbosacral spondylosis without myelopathy Take 1 tablet by mouth 4 (four) times a day as needed for pain. Max Daily Amount: 4 tablets 120 tablet 0 08/06/2023 Active Start: 07-07-2023 End: 08-02-2023 HYDROcodone-acetaminophen (N ORCO) 5-325 mg per tablet Indications: Lumbosacral spondylosis without myelopathy Take 1 tablet by mouth 4 (four) times a day as needed for pain. Max Daily Amount: 4 tablets 120 tablet 0 07/07/2023 08/02/2023 Discontinued (Reorder) Start: 07-07-2023 HYDROcodone-ac etaminophen (NORCO) 5-325 mg per tablet Indications: Lumbosacral spondylosis without myelopathy Take 1 tablet by mouth 4 (four) times a day as needed for pain. Max Daily Amount: 4 tablets 120 tablet 0 07/07/2023 Active Start: 06-07-2023 End: 07-03-2023 HYDROcodone-acetaminophen (N ORCO) 5-325 mg per tablet Indications: Lumbosacral spondylosis without myelopathy Take 1 tablet by mouth 4 (four) times a day as needed for pain. Max Daily Amount: 4 tablets 120 tablet 0 06/07/2023 07/03/2023 Discontinued (Reorder) Start: 06-07-2023 HYDROcodone-ac etaminophen (NORCO) 5-325 mg per tablet Indications: Lumbosacral spondylosis without myelopathy Take 1 tablet by mouth 4 (four) times a day as needed for pain. Max Daily Amount: 4 tablets 120 tablet 0 06/07/2023 Active Start: 03-06-2023 End: 05-31-2023 take 1 tablet by mouth four times daily as needed for pain HYDROcodone-acetaminophen ([place]) 5-325 MG tablet Take 1 tablet by mouth 4 (four) times a day as needed for severe pain or moderate pain. 03/06/2023 Active Start: 12-16-2015 take 1 tablet by roland th every eight hours HYDROcodone-Acetaminophen 5-325 MG 1 tab let as needed Oral 3 times a day arthrits pain Dec, Active take 1 tablet by roland th every eight hours as needed HYDROcodone-acetaminophen (NORCO) 5-325 mg per tablet Take 1 tablet by mouth every 8 hours as needed. Active Comment on above: Take 1 tablet by roland th every 8 hours as needed. acyclovir 400 mg oral tablet (20 sources) Herpesvirus Nucleoside Analog DNA Polymerase Inhibitor, Herpes Simplex Virus Nucleoside Analog DNA Polymerase Inhibitor, Herpes Zoster Virus Nucleoside Analog DNA Polymerase Inhibitor Start: 12-19-2022 End: 02-16-2023 take 1 tablet by mouth in the morning acyclovir (Zovirax) 400 MG tablet Take 400 mg by mouth in the morning and 400 mg before bedtime. 03/17/2024 Active End: 12-19-2022 take 1 capsule by mouth twice daily acyclovir (ZOVIRAX) 200 mg capsule Take 200 mg by mouth twice daily. 0 12/19/2022 Discontinued Comment on above: Take 200 mg by mouth twice daily. Take 1 tablet by roland th twice daily. take 1 tablet by roland th twice a day amitriptyline hydrochloride 25 mg oral tablet (20 sources) Tricyclic Antidepressant Start: 08-26-19 End: 11-14-19 take 2 tablets by mouth once daily at bedtime amitriptyline (ELAVIL) 25 mg tablet Indications: Chronic bilateral low back pain with bilateral sciatica Take 2 tablets by mouth daily at bedtime. 180 tablet 11/13/2024 Active Start: 07-25-2022 End: 08-22-2024 take 2 tablets by mouth once daily at bedtime amitriptyline (ELAVIL) 25 mg tablet Indications: Chronic bilateral low back pain with bilateral sciatica Take 2 tablets by mouth daily at bedtime. 180 tablet 3 02/11/2024 08/22/2024 Discontinued Start: 01-19-2021 End: 02-20-2022 take 2 tablets by mouth once daily at bedtime amitriptyline (ELAVIL) 25 mg tablet Indications: Chronic bilateral low back pain with bilateral sciatica Take 2 tablets by mouth daily at bedtime. 60 tablet 3 02/21/2022 Active Start: 06-04-2009 take 1 tablet by roland th once daily as needed for sleep amitriptyline (ELAVIL) 25 mg tablet Indications: Lumbosacral spondylosis without myelopathy Take 1 tablet (25 mg total) by mouth nightly as needed for sleep. 30 tablet 5 10/21/2019 Active Comment on above: Take 2 tablets by mo ut daily at bedtime. take 2 tablets by mo uth daily at bedtime biotin 10 mg oral capsule (20 sources) Biotin 10,000 mc g cap Take by mouth twice daily. Active take 1 capsule by mouth in the m orning biotin 10 MG capsule Take 1 capsule by mouth in the morning and 1 capsule in the evening. Active take 2 tablets by mouth in the m orning biotin 10 mg tablet Take 20 mg by mouth in the morning and 20 mg before bedtime. Active take 1 tablet by roland th every twenty-four hours Biotin 1000 MCG 1 tablet Orally Once a d ay Active Comment on above: Take by mouth twice daily. 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 Active colchicine 0.6 mg oral tablet (20 sources) Start: 10-14-19 take 1 tablet by mouth twice daily colchicine 0.6 mg tablet Indications: Pseudogout involving multiple joints , Hyperuricemia Take 1tab by mouth up to twice a day as tolerated. May cause diarrhea. 60 tablet 11 10/13/2024 Active Start: 03-29-2024 End: 10-11-2024 take 1 tablet by mouth in the morning colchicine 0.6 MG tablet Take 0.6 mg by mouth in the morning and 0.6 mg in the evening. 03/29/2024 Active crisaborole 0.02 mg/mg topical ointment (7 sources) End: 11-11-2021 crisaborole 2 % oint Apply to affected area. 0 11/11/2021 Discontinued Comment on above: Apply to affected ar ea. cyclobenzaprine hydrochloride 10 mg oral tablet (20 sources) Muscle Relaxant Start: 08-25-2024 End: 09-23-2024 cyclobenzaprine (FLEXERIL) 10 mg tablet Indications: Leg cramps Take 1-2tabs 3times a day 450 tablet 09/24/2024 Active Start: 12-24-2023 End: 08-22-2024 cyclobenzaprine (FLEXERIL) 1 0 mg tablet Indications: Leg cramps Take 1-2tabs 3times a day 450 tablet 3 03/29/2024 08/22/2024 Discontinued Start: 08-21-2022 End: 12-22-2023 cyclobenzaprine (FLEXERIL) 1 0 mg tablet Indications: Leg cramps Take 1-2tabs 3times a day 450 tablet 3 09/20/2023 12/22/2023 Discontinued Start: 01-09-2022 End: 02-20-2022 cyclobenzaprine (FLEXERIL) 1 0 mg tablet Indications: Leg cramps Take 1-2tabs 3times a day 450 tablet 3 02/21/2022 Active Start: 06-30-2021 End: 12-08-2021 cyclobenzaprine (FLEXERIL) 1 0 mg tablet Indications: Leg cramps Take 1-2tabs 3times a day 90 tablet 3 12/08/2021 Active Start: 03-31-2020 cyclobenzaprin e (FLEXERIL) 10 mg tablet Indications: Disorder of sacrum Take one tablet BID and two tablets at HS. 120 tablet 5 03/31/2020 Active Start: 06-04-2009 take 2 tablets by mo ut twice daily in the evening Cyclobenzaprine HCl 10 MG 1 tablet AM ; 2 tablets PM Orally Twice a day Jun, Active Comment on above: Take 1-2tabs 3times a day diclofenac sodium 0.01 mg/mg topical gel (7 sources) Nonsteroidal Anti-inflammatory Drug Start: End: diclofenac sodium (VOLTAREN) 1 % topical gel 24 hr dilTIAZem hydrochloride 300 mg extended release oral capsule (7 sources) Calcium Channel Agnieszka Start: End: take 1 capsule by mouth once daily, then take 1 capsule by mouth every twenty-four hours diltiazem CR (TIAZAC,TAZTIA XT) 300 mg 24 hr capsule Take 300 mg by mouth once daily. 0 07/13/2019 11/11/2021 Discontinued Comment on above: Take 300 mg by mouth once daily. diphenhydrAMINE hydrochloride 25 mg oral capsule (17 sources) Histamine-1 Receptor Antagonist diphenhydrAMINE (BENADRYL) 25 mg capsule Take 1 capsule (25 mg total) by mouth. 1 tablet once in the morning, 1 tablet in the afternoon, 2 tablet at night per patient Active diphenhydrAMINE (BENADRYL) 25 mg capsule Take 4 capsules (100 mg total) by mouth in the morning and 4 capsules (100 mg total) at noon and 4 capsules (100 mg total) in the evening and 4 capsules (100 mg total) before bedtime. 1 tablet once in the morning, 1 tablet in the afternoon, 2 tablet at night per patient. Active 1 ml etanercept 50 mg/ml auto-injector (20 sources) Tumor Necrosis Factor Agnieszka Start: 07-01-2024 inject 50 mg by subcutaneous injection every week in the evening Etanercept (ENBREL SURECLICK) 50 mg/mL (1 mL) Indications: Ankylosing spondylitis of multiple sites in spine (HCC) Inject 50mg (1 pen) subcutaneously once a week. Hold if ill or on antibiotics. No LIVE vaccines. 12 mL 3 12/22/2024 1:48 PM EDT 07/01/2024 Active Start: 01-11-2024 End: 03-29-2024 Etanercept (ENBREL) 50 mg/mL (1 mL) injection Indications: Ankylosing spondylitis of multiple sites in spine (HCC) , Long-term use of high-risk medication INJECT 1 SYRINGE UNDER THE SKIN 1 TIME A WEEK. Hold if ill or on antibiotics. No LIVE vaccines. 12 Each 3 01/11/2024 03/29/2024 Discontinued (Course of therapy completed) Start: 07-25-2023 End: 01-10-2024 Etanercept (ENBREL) 50 mg/mL (1 mL) injection Indications: Ankylosing spondylitis of multiple sites in spine (HCC) , Long-term use of high-risk medication INJECT 1 SYRINGE UNDER THE SKIN 2 TIMES A WEEK. Hold if ill or on antibiotics. No LIVE vaccines. 24 Each 3 07/25/2023 01/10/2024 Discontinued Start: 03-01-2022 End: 03-01-2023 Etanercept (ENBREL) 50 mg/mL (1 mL) injection Indications: Ankylosing spondylitis of multiple sites in spine (HCC) , Long-term use of high-risk medication INJECT 1 SYRINGE UNDER THE SKIN 2 TIMES A WEEK. Hold if ill or on antibiotics. No LIVE vaccines. 24 Each 3 01/18/2023 03/01/2023 Discontinued Start: 11-29-2020 End: 11-24-2021 Etanercept (ENBREL) 50 mg/mL (1 mL) injection Indications: Ankylosing spondylitis of multiple sites in spine (HCC) , Long-term use of high-risk medication INJECT 1 SYRINGE UNDER THE SKIN (SUBCUTANEOUS INJECTION) TWICE A WEEK. HOLD IF ON ANTIBIOTICS OR ILL. SINGLE USE SYRINGE . REFRIGERATE 24 Syringe 3 11/24/2021 Active Comment on above: INJECT 1 SYRINGE (50 MG) SUBCUTANEOUSLY TWICE A WEEK. HOLD IF ON ANTIBIOTICS OR ILL. SINGLE-USE SYRINGE. REFRIGERATE. INJECT 1 SYRINGE UND ER THE SKIN (SUBCUTANEOUS INJECTION) TWICE A WEEK. HOLD IF ON ANTIBIOTICS OR ILL. SINGLE USE SYRINGE . REFRIGERATE INJECT 1 SYRINGE UND ER THE SKIN 2 TIMES A WEEK. Hold if ill or on antibiotics. No LIVE vaccines. fludrocortisone acetate 0.1 mg oral tablet (2 sources) Start: 025 End: 025 take 1 tablet by mouth at bedtime fludrocortisone (Florinef) 0.1 MG tablet Indications: Dysautonomia orthostatic hypotension syndrome Take 1 tablet (0.1 mg) by mouth at bedtime 30 tablet 11 01/14/2025 02/13/2025 Active gabapentin 600 mg oral tablet (20 sources) Anti-epileptic Agent Start: 024 End: 026 take 4 capsules by mouth once daily gabapentin (NEURONTIN) 600 mg tablet Indications: Chronic bilateral low back pain with bilateral sciatica Take 4caps by mouth per day 360 tablet 09/24/2024 09/16/2025 Active Start: 2021 End: 02-10-2025 gabapentin (NEURONTIN) 300 m g capsule Indications: Chronic bilateral low back pain with bilateral sciatica take 1 to 2 capsules by mouth every morning then take 2 capsules by mouth AT NOON then take 2 capsules by mouth nightly 720 capsule 3 02/11/2024 03/29/2024 Discontinued (Course of therapy completed) Start: 07-15-2020 End: 08-21-2024 take 2 capsules by mouth twice daily gabapentin (NEURONTIN) 300 mg capsule Indications: Lumbosacral spondylosis without myelopathy Take 2 capsules (600 mg total) by mouth 2 (two) times a day. 120 capsule 1 07/15/2020 08/21/2024 Discontinued (Alternate therapy) Start: 06-04-2009 Gabapentin 100 mg 1 capsule AM ; 1 capsule Afternoon, 2 capsules PM Orally daily 1,1,2 Jun, Active take 2 tablets by mo uth in the morning, then take 2 tablets by mouth at bedtime gabapentin (NEURONTIN) 600 mg tablet Take 2 tablets (1,200 mg total) by mouth in the morning and 2 tablets (1,200 mg total) before bedtime. Active Comment on above: 1-2caps in AM, 2caps at noon and night take 1 to 2 capsules by mouth every morning then take 2 capsules by mouth AT NOON then take 2 capsules by mouth nightly glimepiride 1 mg oral tablet (20 sources) Sulfonylurea Start: 01-14-20 25 take 1 tablet by mouth once daily before breakfast glimepiride (AMARYL) 1 mg tablet Take 1 tablet (1 mg total) by mouth every morning before breakfast. 90 tablet 3 01/13/2025 Active Start: 01-05-2021 End: 01-14-2025 glimepiride (AMARYL) 1 mg ta blet 01/05/2021 Active Start: 01-05-2021 take 0.5 tablet by m outh once daily before breakfast glimepiride (AMARYL) 1 mg tablet Take 0.5 tablets (0.5 mg total) by mouth every morning before breakfast. 0 01/05/2021 Active glucosamine/chondr sanchez A sod (OSTEO BI-FLEX ORAL) (7 sources) End: 11-11-2021 glucosamine/chondr sanchez A sod (OSTEO BI-FLEX ORAL) Take by mouth. 0 11/11/2021 Discontinued glucosamine/iva dr sanchez A sod (OSTEO BI-FLEX ORAL) Take by mouth. 0 Active Comment on above: Take by mouth. Handicap Placard 5 year 5 year (1 source) Start: 9 Handicap Placard 5 year 5 year 1 misc daily for 1825 days *please review for potential _update for e-prescription and drug interaction check* Arthritis Feb, Active ibuprofen 800 mg oral tablet (20 sources) Nonsteroidal Anti-inflammatory Drug Start: 5 take 1 tablet by mouth every six hours as needed for pain ibuprofen (MOTRIN) 800 mg tablet Take 1 tablet (800 mg total) by mouth every 6 (six) hours as needed for pain. 30 tablet 06/12/2024 Active End: 11-11-2021 take 1 tablet by mouth every eight hours as needed ibuprofen (ADVIL) 200 mg tablet Take 200 mg by mouth every 8 hours as needed. 0 11/11/2021 Discontinued Comment on above: Take 200 mg by mouth every 8 hours as needed. lidocaine 0.05 mg/mg topical ointment (20 sources) Antiarrhythmic, Amide Local Anesthetic Start: lidocaine (XYLOCAINE) 5 % ointment Apply 1 Application topically as needed in the morning and 1 Application as needed at noon and 1 Application as needed in the evening for pain. 03/29/2023 Active lisinopril 20 mg oral tablet (20 sources) Angiotensin Converting Enzyme Inhibitor Start: take 0.5 tablet by mouth in the morning lisinopriL (PRINIVIL,ZESTRIL) 20 mg tablet Take 0.5 tablets (10 mg total) by mouth in the morning. 09/11/2024 Active Start: 03-13-2024 End: 09-11-2024 take 1 tablet by mouth in the morning lisinopriL (PRINIVIL,ZESTRIL) 20 mg tablet Take 1 tablet (20 mg total) by mouth in the morning. 90 tablet 3 03/13/2024 09/11/2024 Discontinued (Reorder) Start: 05-12-2023 End: 11-07-2024 take 1 tablet by mouth once lisinopril (ZESTRIL) 40 mg tablet Take 1 tablet by mouth every afternoon. 05/12/2023 Active End: 03-13-2024 take 0.5 tablet by mouth in the morning lisinopril (PRINIVIL,ZESTRIL) 20 mg tablet Take 0.5 tablets (10 mg total) by mouth in the morning. 03/13/2024 Discontinued (Reorder) End: 07-25-2023 take 1 tablet by mouth in the morning, then take 1 tablet by mouth at bedtime lisinopril (PRINIVIL,ZESTRIL) 20 mg tablet Take 1 tablet (20 mg total) by mouth in the morning and 1 tablet (20 mg total) before bedtime. Active End: 08-28-2022 take 1 tablet by mouth once daily lisinopril (ZESTRIL, PRINIVIL) 40 mg tablet Take 40 mg by mouth once daily. 0 08/28/2022 Discontinued (Changing Therapy/Dosage Form) Comment on above: Take 40 mg by mouth once daily. Take 1 tablet by roland th every afternoon. magnesium oxide 400 mg oral tablet (20 sources) Start: 03-13-2024 take 1 tablet by mouth in the morning magnesium oxide (MAGOX) 400 mg tablet Take 1 tablet (400 mg total) by mouth in the morning. 30 tablet 2 03/13/2024 Active modafinil 200 mg oral tablet (12 sources) Sympathomimetic-l rafael Agent Start: 11-04-2024 End: 02-04-2025 take 1 tablet by mouth in the morning modafinil (Provigil) 200 MG tablet Indications: Idiopathic hypersomnia with long sleep time , Chronic fatigue syndrome Take 1 tablet (200 mg) by mouth in the morning and at noon 60 tablet 2 11/06/2024 02/04/2025 Active Start: 08-14-2024 End: 10-30-2024 take 0.5 tablet by mouth in the morning modafinil (Provigil) 100 MG tablet Indications: Idiopathic hypersomnia with long sleep time Take 0.5 tablets (50 mg) by mouth in the morning and at noon 30 tablet 2 08/14/2024 10/30/2024 Discontinued (Reorder) Multiple Vitamins-Minerals (Oncovite) tablet (11 sources) take 1 tablet by mouth in the morning Multiple Vitamins-Minerals (Oncovite) tablet Take 1 tablet by mouth in the morning. Active Multivitamin preparation (1 source) take 1 tablet by mouth once daily Multivitamin 1 tablet Orally Once a day *please review for potential _update for e-prescription and drug interaction check* Active multivits w-ca,fe,other min(WOMEN'S MULTIPLE VITAMINS 18 MG-0.4 MG TAB) (20 sources) Start: 07-05-2007 End: 08-28-2022 take 1 tablet by mouth once daily multivits w-ca,fe,other min(WOMEN'S MULTIPLE VITAMINS 18 MG-0.4 MG TAB) Indications: Pain in joint, multiple sites Take one(1) tablet daily BY MOUTH. 0 07/05/2007 08/28/2022 Discontinued (Changing Therapy/Dosage Form) Start: 07-05-2007 take 1 tablet by roland th once daily multivits w-ca,fe,other min(WOMEN'S MULTIPLE VITAMINS 18 MG-0.4 MG TAB) Indications: Pain in joint, multiple sites Take one(1) tablet daily BY MOUTH. 0 07/05/2007 Active Comment on above: Take one(1) tablet d aily BY MOUTH. naloxone hydrochloride 40 mg/ml nasal spray (9 sources) Opioid Antagonist Start: 2 naloxone (NARCAN) 4 mg/actuation nasal spray - TAKE HOME KIT 4 mg naloxone (NARCAN) 4 mg/actuation nasal spray - TAKE HOME KIT 4 mg (20 sources) Start: 2 naloxone (NARCAN) 4 mg/actuation nasal spray - TAKE HOME KIT 4 mg Naltrexone (20 sources) Opioid Antagonist Start: 4 End: 4 take 1 mg by mouth once daily Naltrexone HCl powder Indications: Chronic fatigue syndrome Take 1 mg by mouth Daily 30 g 04/25/2024 05/25/2024 Active Start: 04-23-2024 End: 04-24-2024 take 1 mg by mouth once daily Naltrexone HCl powder In dications: Chronic fatigue syndrome Take 1 mg by mouth Daily 30 g 04/23/2024 04/24/2024 Discontinued (Reorder) Start: 04-23-2024 End: 05-23-2024 take 1 mg by mouth once daily Naltrexone HCl powder In dications: Chronic fatigue syndrome Take 1 mg by mouth Daily 30 g 04/23/2024 05/23/2024 Active take 1 mg by mouth i n the morning naltrexone HCl (NALTREXONE ORAL) Take 1 mg by mouth in the morning. Active NIFEdipine 30 mg osmotic 24 hr extended release oral tablet (10 sources) Dihydropyridine Calcium Channel Agnieszka Start: 09-11-2024 End: 12-08-2024 take 1 tablet by mouth every twenty-four hours in the morning NIFEdipine XL (PROCARDIA XL) 30 mg 24 hr tablet Take 1 tablet (30 mg total) by mouth in the morning. 90 tablet 2 12/08/2024 Active omeprazole 20 mg delayed release oral capsule (20 sources) Proton Pump Inhibitor Start: 05-12-2023 take 1 capsule by mouth twice daily omeprazole (PRILOSEC) 20 mg capsule Take 1 capsule by mouth two times a day. 05/12/2023 Active Start: 05-08-2022 End: 08-28-2022 Omeprazole Magnesium 20 mg t ablet TAKE 1 TABLET BY MOUTH ONCE DAILY 30 MINUTES before morning meal 0 05/08/2022 08/28/2022 Discontinued (Changing Therapy/Dosage Form) Start: 01-05-2010 End: 08-28-2022 take 2 tablets by mouth once daily omeprazole(PRILOSEC 20 MG CAP) Indications: Spondyloarthropathy two tablets once daily BY MOUTH. 0 01/05/2010 08/28/2022 Discontinued (Changing Therapy/Dosage Form) End: 07-25-2023 take 1 capsule by mouth in the morning omeprazole (PriLOSEC) 40 mg capsule Take 1 capsule (40 mg total) by mouth in the morning. Active Comment on above: two tablets once paul ly BY MOUTH. TAKE 1 TABLET BY ROLAND ONCE DAILY 30 MINUTES before morning meal Take 40 mg by mouth. Take 1 capsule by mo [facility] two times a day. predniSONE 5 mg oral tablet (20 sources) Start: 12-01-2024 predniSONE (DELTASONE) 5 mg tablet Indications: Cervicalgia , Paresthesia of both hands Day 1=6tabs with food, Day 2=5tabs, Day 3=4tabs, Day 4=3tabs, Day 5=2tabs, then 1tab daily thereafter if needed No NSAIDs on med 90 tablet 1 12/01/2024 Active Start: 11-12-2024 End: 12-01-2024 predniSONE (DELTASONE) 5 mg tablet Indications: Cervicalgia , Paresthesia of both hands Day 1=6tabs with food, Day 2=5tabs, Day 3=4tabs, Day 4=3tabs, Day 5=2tabs, Day 6=1tab, No NSAIDs on med 21 tablet 3 11/12/2024 12/01/2024 Discontinued Start: 08-25-2024 End: 11-12-2024 take 6 tablets by mouth once daily at mealtime, then take 5 tablets by mouth once daily predniSONE (DELTASONE) 5 mg tablet Indications: Cervicalgia , Paresthesia of both hands TAKE 6 TABLETS BY MOUTH ONCE DAILY FOR 1 DAY; then TAKE 5 TABLETS BY MOUTH ONCE DAILY FOR 1 DAY; then TAKE 4 TABLETS BY MOUTH ONCE DAILY FOR 1 DAY; then TAKE 3 TABLETS BY MOUTH ONCE DAILY FOR 1 DAY; then TAKE 2 TABLETS BY MOUTH ONCE DAILY FOR 1 DAY; then TAKE 1 TABLET BY MOUTH ONCE DAILY FOR 1 DAY; take all doses WITH food and avoid NSAIDS 21 tablet 08/25/2024 11/12/2024 Discontinued Start: 05-13-2024 End: 08-22-2024 take 6 tablets by mouth once daily at mealtime, then take 5 tablets by mouth once daily predniSONE (DELTASONE) 5 mg tablet Indications: Cervicalgia , Paresthesia of both hands TAKE 6 TABLETS BY MOUTH ONCE DAILY FOR 1 DAY; then TAKE 5 TABLETS BY MOUTH ONCE DAILY FOR 1 DAY; then TAKE 4 TABLETS BY MOUTH ONCE DAILY FOR 1 DAY; then TAKE 3 TABLETS BY MOUTH ONCE DAILY FOR 1 DAY; then TAKE 2 TABLETS BY MOUTH ONCE DAILY FOR 1 DAY; then TAKE 1 TABLET BY MOUTH ONCE DAILY FOR 1 DAY; take all doses WITH food and avoid NSAIDS 21 tablet 3 05/13/2024 08/22/2024 Discontinued Start: 01-17-2024 End: 05-13-2024 predniSONE (DELTASONE) 5 mg tablet Indications: Cervicalgia , Paresthesia of both hands Day 1=6tabs with food, Day 2=5tabs, Day 3=4tabs, Day 4=3tabs, Day 5=2tabs, Day 6=1tab, No NSAIDs on med 21 tablet 3 03/29/2024 05/13/2024 Discontinued Start: 06-07-2023 End: 06-17-2023 take 1 tablet by mouth every twelve hours predniSONE (DELTASONE) 20 mg tablet Take 1 tablet by mouth every 12 hours. 0 06/07/2023 06/17/2023 Start: 06-07-2023 take 1 tablet by roland th every twelve hours prednisone 20 MG 1 tablet Orally BID for 5 Jun, Active Start: 03-15-2023 End: 01-17-2024 predniSONE (DELTASONE) 5 mg tablet Indications: Cervicalgia , Paresthesia of both hands Day 1=6tabs with food, Day 2=5tabs, Day 3=4tabs, Day 4=3tabs, Day 5=2tabs, Day 6=1tab, No NSAIDs on med 21 tablet 1 01/11/2024 01/17/2024 Discontinued Start: 01-19-2021 End: 11-11-2021 predniSONE (DELTASONE) 5 mg tablet Indications: Ankylosing spondylitis of multiple sites in spine (HCC) , Chronic bilateral low back pain without sciatica Day 1=6tabs with food, Day 2=5tabs, Day 3=4tabs, Day 4=3tabs, Day 5=2tabs, Day 6=1tab, No NSAIDs on med 21 tablet 1 01/19/2021 11/11/2021 Discontinued predniSONE 5 MG TAKE 6 TABS ON DAY 1 5 TABS ON DAY 2 4 TABS ON DAY 3 3 TABS ON ... (REFER TO PRESCRIPTION NOTES). Oral for 6 Days Active Comment on above: Day 1=6tabs with rigoberto d, Day 2=5tabs, Day 3=4tabs, Day 4=3tabs, Day 5=2tabs, Day 6=1tab, No NSAIDs on med Take 1 tablet by roland th every 12 hours. therapeutic multivitamin (THERA VITAMIN) tablet (20 sources) take 1 tablet by mouth once daily in the morning therapeutic multivitamin (THERA VITAMIN) tablet Take 1 tablet by mouth every morning. Active take 1 tablet by roland th once daily in the morning therapeutic multivitamin (THERA VITAMIN) tablet Take 1 tablet by mouth every morning. 0 Active Comment on above: Take 1 tablet by roland th every morning. therapeutic multivitamin (THERAGRAN) tablet (20 sources) take 1 tablet by mouth in the morning therapeutic multivitamin (THERAGRAN) tablet Take 1 tablet by mouth in the morning. Active take 1 tablet by mouth in the mo rning therapeutic multivitamin (THERAGRAN) tablet Take 1 tablet by mouth in the morning. 0 Active Vitamin D 400 UNIT (1 source) take 1 capsule by mo uth once daily Vitamin D 400 UNIT 1 capsule Orally Once a day *please review for potential _update for e-prescription and drug interaction check* Active Completed/Discontinued Medications Medication Drug Class(es) Dates Sig (Normalized) Sig (Original) amoxicillin 875 mg / clavulanate 125 mg oral tablet (2 sources) Penicillin-class Antibacterial Start: 06-07-2023 End: 06-17-2023 take 1 tablet by mouth every twelve hours amoxicillin-clavul anate potassium (AUGMENTIN) 875-125 mg per tablet Take 1 tablet by mouth every 12 hours. 0 06/07/2023 06/17/2023 Comment on above: Take 1 tablet by roland th every 12 hours. Blood Glucose Monitoring Suppl (Accu-Chek Guide) w/Device kit (8 sources) Start: 02-12-2024 End: 10-30-2024 Blood Glucose Monitoring Suppl (Accu-Chek Guide) w/Device kit USE DIRECTED 02/12/2024 10/30/2024 Discontinued (Therapy completed) Start: 02-12-2024 Blood Glucose Monitoring Suppl (Accu-Chek Guide) w/Device kit USE DIRECTED 02/12/2024 Active cephalexin 500 mg oral capsule (1 source) Cephalosporin Antibacterial Cephalexin 500 MG ta ke 1 capsule by mouth four times a day for 10 days Oral for 10 Days Not-Taking/PRN 1 ml certolizumab pegol 200 mg/ml prefilled syringe (18 sources) Start: 02-27-2023 End: 02-29-2024 certolizumab pegol (CIMZIA) 400 mg/2 mL (200 mg/mL x 2) sub-q syringe kit Indications: Ankylosing spondylitis of multiple sites in spine (HCC) Inject 2 mL subcutaneously every 4 weeks. Hold if ill or on antibiotics. No LIVE vaccines 2 mL 12 03/01/2023 07/25/2023 Discontinued (Course of therapy completed) Start: 02-14-2023 End: 07-25-2023 certolizumab pegol (CIMZIA S ESTHER KIT) 400 mg/2 mL (200 mg/mL x 2) sub-q syringe kit Indications: Ankylosing spondylitis of multiple sites in spine (HCC) Inject 400 mg (2 syringes) subcutaneously at weeks 0, 2 and 4 followed by 400 mg (2 syringes) every 4 weeks thereafter 3 Each 0 02/27/2023 07/25/2023 Discontinued (Course of therapy completed) Comment on above: Inject 200mg (1 syri nge) subcutaneously at weeks 0, 2, and 4. Then inject 200mg (1 syringe) every 4 weeks thereafter Inject 2 mL subcutan eously every 4 weeks. Hold if ill or on antibiotics. No LIVE vaccines Inject 400 mg (2 syr inges) subcutaneously at weeks 0, 2 and 4 followed by 400 mg (2 syringes) every 4 weeks thereafter ciprofloxacin 3 mg/ml ophthalmic solution (1 source) Quinolone Antimicrobial Start: 2023 End: 2023 take 2 drop(s) into the eye(s) every four hours ciprofloxacin HCl (CILOXAN) 0.3 % ophthalmic solution instill 2 drops INTO AFFECTED EYE(S) every 4 hours for 5 days 0 07/05/2023 07/09/2023 Comment on above: instill 2 drops INTO AFFECTED EYE(S) every 4 hours for 5 days dextromethorphan hydrobromide 1.5 mg/ml / pyrilamine maleate 1.5 mg/ml oral solution (2 sources) Uncompetitive Y-ggjbsm-E-aspartate Receptor Antagonist, Sigma-1 Agonist Start: 2023 End: 2023 take 10 mL by mouth every eight hours CAPRON DM 7.5-7.5 mg/5 mL liqd take 10 MILLILITERS by mouth every 8 hours for 5 days 0 06/08/2023 06/18/2023 Comment on above: take 10 MILLILITERS by mouth every 8 hours for 5 days doxycycline hyclate 100 mg oral capsule (3 sources) Tetracycline-class Drug Start: 2023 End: 2023 doxycycline (Vibramycin) 100 MG capsule Indications: Cellulitis of left lower extremity Take 1 capsule (100 mg) by mouth in the morning and 1 capsule (100 mg) before bedtime. Take with at least 8 ounces (large glass) of water, do not lie down for 30 minutes after. 20 capsule 1 06/18/2023 04/23/2024 Discontinued Comment on above: take 1 capsule by [facility] twice a day every morning and BEFORE BEDTIME WITH A FULL GLASS OF WATER Enbrel 50 MG/ML (1 source) inject 1 mL by subcutaneous injection two times weekly as needed Enbrel 50 MG/ML 1 ml Subcutaneous Twice a week *please review for potential _update for e-prescription and drug interaction check* Not-Taking/PRN meloxicam 15 mg oral tablet (20 sources) Nonsteroidal Anti-inflammatory Drug Start: 2020 End: 2023 meloxicam (MOBIC) 15 mg tablet Take 15 mg by mouth. 0 09/20/2020 01/17/2024 Discontinued (Course of therapy completed) Comment on above: Take 15 mg by mouth. 1 ml secukinumab 150 mg/ml auto-injector (20 sources) Interleukin-17A Antagonist Start: 2023 End: 2024 secukinumab (Cosentyx Sensoready Pen) 150 MG/ML self-injector pen Inject 300 mg under the skin every 7 (seven) days 01/24/2024 10/30/2024 Discontinued (Therapy completed) Start: 01-24-2024 COSENTYX PEN 1 50 mg/mL pen injector Inject 2 mL (300 mg total) under the skin once a week. 2 shots at a time every 4 weeks 01/24/2024 Active Start: 01-23-2024 End: 07-01-2024 secukinumab (COSENTYX PEN, 2 PENS,) 150 mg/mL Indications: Ankylosing spondylitis of multiple sites in spine (HCC) INJECT 2 PENS UNDER THE SKIN EVERY 4 WEEKS. 10 mL 1 03/05/2024 07/01/2024 Discontinued (Side Effects) Problems Active Problems Problem Classification Problem Date Documented Date Episodic/Chronic Allergic reactions (6 sources) Eczema; Translations: [Dermatitis, unspecified] Onset: 10-30-2024 10-30-2024 Episodic Anxiety disorders (6 sources) Anxiety; Translations: [Anxiety disorder, unspecified] Onset: 10-30-2024 10-30-2024 Chronic Bacterial infection; unspecified site (1 source) Rheumatoid arteritis; Translations: [Rheumatic fever without heart involvement] Episodic Blindness and vision defects (3 sources) Blurring of visual image; Translations: [Other visual disturbances] Onset: 12-01-2024 12-01-2024 Episodic Cardiac dysrhythmias (20 sources) Palpitations; Translations: [Palpitations] Onset: 12-11-2019 Resolved: 02-11-2024 09-11-2013 Episodic Coma; stupor; and brain damage (1 source) Somnolence; Translations: [Somnolence] Onset: 11-25-2024 Episodic Conditions associated with dizziness or vertigo (5 sources) Dizziness; Translations: [Dizziness and giddiness] Onset: 10-30-2024 10-30-2024 Episodic Deficiency and other anemia (3 sources) Anemia of chronic disease; Translations: [Anemia in other chronic diseases classified elsewhere] Chronic Deficiency and other anemia (1 source) Anemia in other chronic diseases classified elsewhere; Translations: [Anemia in other chronic diseases classified elsewhere] Onset: 09-11-2024 Chronic Diabetes mellitus with complications (20 sources) Secondary diabetes mellitus; Translations: [Diabetes mellitus due to underlying condition with hyperosmolarity without nonketotic hyperglycemic-hyperosm olar coma ([facility])] Onset: 02-11-2024 09-11-2024 Chronic E Codes: Adverse effects of medical drugs (1 source) Adverse effect of glucocorticoids and synthetic analogues, initial encounter; 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] Onset: 12-01-2024 Episodic Esophageal disorders (6 sources) Gastroesophageal reflux disease without esophagitis; Translations: [Gastro-esophageal reflux disease without esophagitis] Onset: 10-30-2024 10-30-2024 Chronic Essential hypertension (20 sources) Hypertensive disorder; Translations: [Essential (primary) hypertension] Onset: 12-11-2019 05-30-2021 Chronic Fluid and electrolyte disorders (6 sources) Hyperkalemia; Translations: [Hyperkalemia] Onset: 10-30-2024 10-30-2024 Episodic Gout and other crystal arthropathies (20 sources) Pyrophosphate arthritis; 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, multiple sites] Onset: 09-07-2022 Chronic Headache; including migraine (6 sources) Migraine with aura, not intractable, without status migrainosus; Translations: [Refractory migraine without aura] Onset: 02-11-2024 10-30-2024 Chronic Malaise and fatigue (20 sources) Fatigue; Translations: [Chronic fatigue, unspecified] Onset: 07-24-2019 07-24-2019 Chronic Nutritional deficiencies (20 sources) Vitamin D deficiency; Translations: [Vitamin D deficiency, unspecified] Onset: 06-11-2015 06-11-2015 Chronic Osteoarthritis (20 sources) Localized osteoarthrosis; Translations: [Unilateral primary osteoarthritis, unspecified hip] Onset: 09-18-2013 12-16-2015 Chronic Osteoporosis (4 sources) 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; Translations: [Other osteoporosis without current pathological fracture] Onset: 12-01-2024 12-01-2024 Chronic Other aftercare (7 sources) Patient encounter status; Translations: [director long term care (current) use of opiate analgesic] 06-26-2024 Episodic Other circulatory disease (20 sources) Raynaud's disease; Translations: [Raynaud's syndrome without gangrene] Onset: 05-10-2017 05-10-2017 Chronic Other circulatory disease (1 source) Raynaud's syndrome without gangrene; Translations: [Raynaud's syndrome without gangrene] Onset: 02-05-2020 Chronic Other circulatory disease (2 sources) Disorder of autonomic nervous system; Translations: [Orthostatic hypotension] 01-14-2025 Episodic Other connective tissue disease (15 sources) Cramp in lower limb; Translations: [Cramp and spasm] Episodic Other connective tissue disease (3 sources) Pain of bilateral hands; Translations: [Pain in right hand] Episodic Other connective tissue disease (2 sources) Synovitis; Translations: [Synovitis and tenosynovitis, unspecified] 01-17-2024 Episodic Other connective tissue disease (1 source) Leg swelling symptom Onset: 01-17-2025 Episodic Other diseases of veins and lymphatics (20 sources) Vascular insufficiency; Translations: [Venous insufficiency (chronic) (peripheral)] Onset: 02-05-2020 05-30-2021 Episodic Other nervous system disorders (20 sources) Bilateral carpal tunnel syndrome; Translations: [Carpal tunnel syndrome, bilateral upper limbs] Onset: 06-11-2015 06-11-2015 Chronic Other nervous system disorders (2 sources) Carpal tunnel syndrome of left wrist; Translations: [Carpal tunnel syndrome, left upper limb] Chronic Other nervous system disorders (11 sources) Lesion of ulnar nerve, left upper limb; Translations: [Lesion of ulnar nerve] Onset: 03-29-2023 03-29-2023 Chronic Other nervous system disorders (5 sources) Lesion of ulnar nerve; Translations: [Lesion of ulnar nerve, unspecified upper limb] Onset: 10-30-2024 10-30-2024 Chronic Other nervous system disorders (5 sources) Skin sensation disturbance; Translations: [Unspecified disturbances of skin sensation] Onset: 10-30-2024 10-30-2024 Episodic Other non-traumatic joint disorders (1 source) Pain in elbow; Translations: [Pain in left elbow] 11-25-2024 Episodic Other non-traumatic joint disorders (1 source) Effusion, left elbow; Translations: [Elbow swelling, left] Onset: 12-01-2024 Episodic Other non-traumatic joint disorders (1 source) Pain in left elbow; Translations: [Pain in left elbow] Onset: 11-25-2024 Episodic Other nutritional; endocrine; and metabolic disorders (1 source) Body mass index 30+ - obesity; Translations: [Body mass index (BMI) 32.0-32.9, adult] Chronic Other nutritional; endocrine; and metabolic disorders (4 sources) Hyperuricemia; Translations: [Hyperuricemia without signs of inflammatory arthritis and tophaceous disease] 03-29-2024 Episodic Pneumonia (except that caused by tuberculosis or sexually transmitted disease) (1 source) Pneumonia, unspecified organism Episodic Residual codes; unclassified (9 sources) 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; Translations: [Idiopathic hypersomnia with long sleep time] Onset: 08-17-2024 08-17-2024 Chronic Rheumatoid arthritis and related disease (20 sources) Ankylosing spondylitis; Translations: [Ankylosing spondylitis of unspecified sites in spine] Onset: 08-29-2010 08-29-2010 Chronic Spondylosis; intervertebral disc disorders; other back problems (20 sources) Disorder of joint of spine; Translations: [Spondylosis without myelopathy or radiculopathy, site unspecified] Onset: 01-05-2010 01-05-2010 Chronic Spondylosis; intervertebral disc disorders; other back problems (20 sources) Chronic low back pain; Translations: [Chronic bilateral low back pain without sciatica] Onset: 12-16-2015 12-16-2015 Episodic Systemic lupus erythematosus and connective tissue disorders (6 sources) Systemic sclerosis; Translations: [Systemic sclerosis, unspecified] Onset: 10-30-2024 10-30-2024 Chronic Unclassified (1 source) Medicare [facility] Onset: 03-13-2024 Unclassified (1 source) Establish Care Onset: 02-11-2024 Unclassified (1 source) Intervertebral disc 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 [M99.51] Onset: 02-29-2024 Unclassified (1 source) Extremity Pain Onset: 02-12-2024 Viral infection (4 sources) Herpes simplex; Translations: [Herpesviral infection, unspecified] 12-19-2022 Episodic Past or Other Problems Problem Classification Problem Date Documented Da te Episodic/Chronic Administrative/social admission (1 source) Persons encountering health services in other specified circumstances; Translations: [Persons encountering health services in other specified circumstances] Onset: 02-11-2024 Episodic Immunizations and screening for infectious disease (4 sources) Tuberculosis screening status; Translations: [Encounter for screening for respiratory tuberculosis] Onset: 09-11-2024 Episodic Infective arthritis and osteomyelitis (except that caused by tuberculosis or sexually transmitted disease) (5 sources) Pyogenic arthritis, unspecified; Translations: [Unspecified infective arthritis, upper arm] Onset: 07-15-2023 10-30-2024 Episodic Malaise and fatigue (2 sources) Weakness; Translations: [Weakness] Onset: 02-11-2024 Episodic Mood disorders (20 sources) Mood disorders Onset: 03-13-2024 Resolved: 09-11-2024 03-13-2024 Nutritional deficiencies (20 sources) Cobalamin deficiency; Translations: [Deficiency of other specified B group vitamins] Onset: 07-24-2019 07-24-2019 Episodic Other aftercare (20 sources) H/O: high risk medication; Translations: [Other director long term care (current) drug therapy] Onset: 09-28-2016 09-28-2016 Episodic Other aftercare (2 sources) assisted (current) use of opiate analgesic; Translations: [assisted (current) use of opiate analgesic] Onset: 03-20-2024 Episodic Other aftercare (5 sources) Admission statuses; Translations: [director long term care (current) use of opiate analgesic] 05-31-2023 Episodic Other aftercare (1 source) Other correction (current) drug therapy; Translations: [Other correction (current) drug therapy] Onset: 03-26-2024 Episodic Other bone disease and musculoskeletal deformities (20 sources) Costal chondritis; Translations: [Chondrocostal junction syndrome [Tietze]] Onset: 09-28-2016 09-28-2016 Episodic Other connective tissue disease (2 sources) Repeated falls; Translations: [Repeated falls] Onset: 02-11-2024 Episodic Other connective tissue disease (6 sources) Hand pain; Translations: [Pain in unspecified hand] Onset: 08-21-2024 10-30-2024 Episodic Other hematologic conditions (20 sources) ESR raised; Translations: [Elevated erythrocyte sedimentation rate] Onset: 06-11-2015 06-11-2015 Episodic Other hematologic conditions (1 source) Elevated erythrocyte sedimentation rate; Translations: [Elevated erythrocyte sedimentation rate] Onset: 03-26-2024 Episodic Other nervous system disorders (20 sources) Paresthesia of skin; Translations: [Disturbance of skin sensation] Onset: 06-11-2015 06-11-2015 Episodic Other nervous system disorders (11 sources) H/O: Disorder; Translations: [Personal history of other diseases of the nervous system and sense organs] Onset: 03-29-2023 03-29-2023 Episodic Other non-traumatic joint disorders (20 sources) Swelling of bilateral feet; Translations: [Effusion, right ankle] Onset: 07-24-2019 07-24-2019 Episodic Other non-traumatic joint disorders (20 sources) Pain of left wrist; Translations: [Pain in left wrist] Onset: 10-19-2016 Episodic Other non-traumatic joint disorders (20 sources) Swelling of upper limb; Translations: [Effusion, left wrist] Onset: 04-06-2023 04-06-2023 Episodic Other non-traumatic joint disorders (20 sources) Chronic pain of right upper limb; Translations: [Pain in right shoulder] Onset: 04-06-2023 04-06-2023 Episodic Other non-traumatic joint disorders (20 sources) Multiple stiff joints; Translations: [Stiffness of unspecified joint, not elsewhere classified] Onset: 04-06-2023 04-06-2023 Episodic Other non-traumatic joint disorders (1 source) Effusion, left wrist; Translations: [Wrist swelling, left] Onset: 04-06-2023 Episodic Other non-traumatic joint disorders (1 source) Pain in left wrist; Translations: [Pain in left wrist] Onset: 10-19-2016 Episodic Other non-traumatic joint disorders (1 source) Pain in wrist Onset: 03-20-2024 Episodic Other non-traumatic joint disorders (1 source) Shoulder pain Onset: 02-12-2024 Episodic Other screening for suspected conditions (not mental disorders or infectious disease) (20 sources) Serum creatinine raised; Translations: [Other specified abnormal findings of blood chemistry] Onset: 01-18-2018 01-18-2018 Episodic Residual codes; unclassified (1 source) Mammogram declined; Translations: [Procedure and treatment not carried out because of patient's decision for unspecified reasons] 03-13-2024 Episodic Syncope (5 sources) Syncope; Translations: [Syncope and collapse] Onset: 06-04-2023 10-30-2024 Episodic Unclassified (1 source) Contact with and (suspected) exposure to covid-19 Z20.822 Results Test Name Value Interpretation Reference Range Facility BEDSIDE GLUCOSEon 12-19-2024 Glucose [Mass/Vol] 196 mg/dL High 65-99 [facility] Comment on above: Performed By: #### H A1C, CMP, 34372-9, 30300-1, TSHR, CBCA #### [facility] ([id number]) [address], [address] [place] [address] CNOVon 12-01-2024 CNOV Office Visit (CAESAR ) RHONA GARCIA ([id number]) 1960 F Date Time Provider Department 12/01/24 1:20 PM EUGENIO ELLIS During your visit today, we recorded the following information about you: Pulse Blood pressure Weight 94/minute 143/88 75.9 kg Eugenio Ellis MD 12/01/2024 3:54 PM Addendum Face to face Follow up for Ankylosing spondylitis/CTS/raynaud s/joint pain/ osteoarthritis/ pseudogout Today's visit 12/01/24:labs in 3months. taking elavil, biotin, colchicine, flexeril, enbrel since 06/2024 started working by 08/2024 was better when twice a week/not approved, gabapentin, prilosec. Last cosentyx dose 2023 no response. Yes pseudogout attacks, left wrist. 2weeks ago recent oral steroids with good response. no eye issues. Raynauds better with warmer weather, no digital ulcers. [facility] 11/25/24 high glucose 198;low hgb 11;normal rest of cmp, calcium 9.1, potassium 3.8, alkaline phosphatase 68, ast 15, alt 16, creat 0.89, vitamin D 60.7, wbc 6.5, plts 238, esr 18 (NL0-30mm/hr), crp<0.1 (normal<0.7mg/dL); [facility] 09/11/24 low hgb 11.2normal cmp, potassium 4, creat 0.76, calcium 9, alkaline phosphatase 78, ast 16, alt 14, crp 0.4 (NL0-0.744mg/dL), vitamin D 54.8, esr 5 (NL0-30mm/hr), wbc 5.2, plts 286;negative quantiferon tb 70% improvement from enbrel. limited exercise due to pain. Left elbow and left wrist swelling. Chronic current pain in hands, wrists, Left elbow, neck ,spine. Since last visit fell in bath tub, no fracture. Reports pain 12/11. Has moderate minimal AM stiffness. Interested in possible surgery for left wrist and left forearm nodule. Feels safe at home. Has enough food, supplies and medications. Overall mildly uncomfortable but happy with rheum care. No falls/trauma/illness/or al sores/rash/hairloss/jaw pain/dysphagia/epistaxi s/hemoptysis since last visit. No adverse effects with meds. No other complaints. Patient denies fever, chills, cp, dyspnea, nausea, vomiting, night sweats, scalp tenderness, visual changes, cadena, bowel/bladder changes, weight changes or other complaints. Last visit supportive care, start colchicine/notify office if not tolerated, improved with gabapentin/increase to 600mg 3-4caps per day, check xrays/US of hands to clarify if pain is from pseudogout/inflammatory arthritis/osteoarthriti s, may start methotrexate and folic acid if symptoms persist/worsens, restart fall precautions, see neurology for dizziness/crystals care, see primary care provider for depression care/concern about low glucose, flexeril prn, prn neurontin, see derm, see GI, biotene products, follow up with ortho for s/p L CTS care/improved with injections/may try for shoulder/R hand, on cardizem per PCP/ok to increase for winter, raynauds general measures, wear heated hand glove liners, for flares take prednisone [place], f/u ENT for TMJ growth/pain, f/u spine/PT, tolerating cimzia as instructed, OFF due to insurance enbrel 50mg sq injection TWICE a week since 08/2015, since SSZ/methotrexate not tolerated, did discuss alternative biologics if high APRs, prn heat/ice/otc arthritis creams, unable to wear wrist braces due to thumb pain, correction pain recommendations per pain clinic/improved with injections, weightbearing exercises/stretching, 03/29/24:taking cosentyx, gabapentin 300mg 5per day, flexeril, elavil, biotin, prilosec. Better with recent oral steroids x3 with good response. stable eye exam. Raynauds better with warmer weather, no digital ulcers. Saw neurology, had UE EMG changes from neck, saw pain clinic had injection in neck (helped) and wrist (no help with injection). Outside 03/26/24 low hgb 11.1;high glucose 142, vitamin b12>1500;normal rest of cbc, cmp, vitamin D 54.4; Outside 02/11/24 low wbc 3.8, hgb 11.3, mag 1.7;high cholesterol 246, hgba1c 7;normal cmp, plts 217, tsh 2.39; Insurance denied enbrel. Tried cosentyx 6weeks ago. 03/21/24 reports The fingers of my right hand are becoming difficult to straighten, the middle one is worse, it really hurts too. Two weeks ago I had two shots between my shoulder blades to stop the pain from my neck shooting down my arm That finger and the index finger are also becoming twisted. If I remain in one position for too long, all my muscles and joints feel as if they?ve turned into cement, I have to work out the kinks before I can move. Once I bent over and could not stand back up, 10-30% improvement from cosentyx vs. 50-75% improvement from enbrel. limited exercise due to pain. Fingers and DIP and swelling. Chronic current pain in hands and fingers twisting, neck, hips (THR 11yrs ago). Reports pain 8/10. Has 30 min minimal AM stiffness. Feels safe at home. Has enough food, supplies and medications. Overall uncomfortable but happy with rheum care. No falls/fx/trauma/illness /oral sores/rash/hairloss/jaw pain/dysphagia/epistaxi s/hemopty (more content not included)... Normal [facility] CNPNon 11-26-2024 YADYN Telephone (CAESAR) DANIELARHONA [place] ([id number]) 1960 F Date Time Provider Department 11/26/24 EUGENIO ELLIS During your visit today, we recorded the following information about you: Lida Key LPN 11/26/2024 2:20 PM Signed Received labs from [facility]. Results placed on your desk for review. Eugenio Ellis MD 11/28/2024 3:41 PM Signed Please Call patient if MyChart note not read to review results/released to My Chart if tests completed at [facility]: Mildly low normal hemoglobin, high glucose- care per primary care provider. Normal rest of labs and no inflammation. Continue same vitamin D intake with food. Recheck nonfasting labs in 3months.The orders have been placed. Please send orders cmp, cbc, esr, crp, vitamin D. Orders in epic. Please fax results to rheum office. Thank you! Happy to further review and discuss at follow up visit. Thank you. [facility] 11/25/24 high glucose 198;low hgb 11;normal rest of cmp, calcium 9.1, potassium 3.8, alkaline phosphatase 68, ast 15, alt 16, creat 0.89, vitamin D 60.7, wbc 6.5, plts 238, esr 18 (NL0-30mm/hr), crp<0.1 (normal<0.7mg/dL); [facility] 09/11/24 low hgb 11.2normal cmp, potassium 4, creat 0.76, calcium 9, alkaline phosphatase 78, ast 16, alt 14, crp 0.4 (NL0-0.744mg/dL), vitamin D 54.8, esr 5 (NL0-30mm/hr), wbc 5.2, plts 286;negative quantiferon tb Jodi Gonzalez MA 12/01/2024 9:32 AM Signed lab orders mailed to patient's home as requested Allergies As of Date: 11/26/2024 Noted Allergy Reaction CINNAMON 03/06/2014 7 - Swelling SHELLFISH 06/29/2010 14 - Other: See Comments Comments: throat closes ARAVA (LEFLUNOMIDE) 08/23/2020 5 - Intolerance Comments: headaches, dizziness, blurred vision, hairloss, joint pain COCONUT 12/16/2015 8 - GI Upset DAIRY AID (LACTASE) 08/05/2013 8 - GI Upset DARVOCET A500 (PROPOXYPHENE N-ALLI*08/29/2010 14 - Other: See Comments Comments: Heart palpitations DUST 06/29/2010 14 - Other: See Comments Comments: itching eyes, scratchy throat SULFASALAZINE 12/05/2011 16 - Unknown TREE NUTS 01/17/2024 5 - Intolerance Comments: hives TREES 06/29/2010 16 - Unknown Date Reviewed: 03/29/2024 Reviewed by: Eugenio Ellis MD - Fully Assessed Reason for Visit: Results [95] Cmt: Labs-[facility] Orders [681] Prescriptions as of 12/01/2024 - amitriptyline (ELAVIL) 25 mg tablet Take 2 tablets by mouth daily at bedtime. - predniSONE (DELTASONE) 5 mg tablet Day 1=6tabs with food, Day 2=5tabs, Day 3=4tabs, Day 4=3tabs, Day 5=2tabs, Day 6=1tab, No NSAIDs on med - colchicine 0.6 mg tablet Take 1tab by mouth up to twice a day as tolerated. May cause diarrhea. - cyclobenzaprine (FLEXERIL) 10 mg tablet Take 1-2tabs 3times a day - gabapentin (NEURONTIN) 600 mg tablet Take 4caps by mouth per day - Etanercept (ENBREL SURECLICK) 50 mg/mL (1 mL) Inject 50mg (1 pen) subcutaneously once a week. Hold if ill or on antibiotics. No LIVE vaccines. - lisinopril (ZESTRIL) 40 mg tablet Take 1 tablet by mouth every afternoon. - omeprazole (PRILOSEC) 20 mg capsule Take 1 capsule by mouth two times a day. - acyclovir (ZOVIRAX) 400 mg tablet take 1 tablet by mouth twice a day - glimepiride (AMARYL) 1 mg tablet - therapeutic multivitamin (THERA VITAMIN) tablet Take 1 tablet by mouth every morning. - Biotin 10,000 mcg cap Take by mouth twice daily. - HYDROcodone-acetaminoph en (NORCO) 5-325 mg per tablet Take 1 tablet by mouth every 8 hours as needed. Problem List As Of Date 11/26/2024 Noted Resolved Spondyloarthropathy [M47.819] 01/05/2010 Ankylosing spondylitis [M45.9] 08/29/2010 Venous insufficiency [I87.2] HTN (hypertension) [I10] Palpitations [R00.2] Primary localized osteoarthrosis, pelvic region*09/18/2013 Elevated sed rate [R70.0] 06/11/2015 Vitamin D deficiency [E55.9] 06/11/2015 Paresthesia of both hands [R20.2] 06/11/2015 Bilateral carpal tunnel syndrome [G56.03] 06/11/2015 Chronic bilateral low back pain without sciatic*12/16/2015 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*12/16/2015 Chronic sacroiliac joint pain [M53.3, G89.29] 12/16/2015 Long-term use of high-risk medication [Z79.899] 09/28/2016 Costochondritis, acute [M94.0] 09/28/2016 Raynaud's disease without gangrene [I73.00] 05/10/2017 Elevated serum creatinine [R79.89] 01/18/2018 Bilateral swelling of feet and ankles [M25.471,*07/24/2019 Vitamin B12 deficiency [E53.8] 07/24/2019 Chronic fatigue [R53.82] 07/24/2019 Pseudogout involving multiple joints [M11.89] 09/07/2022 Chondrocalcinosis due to dicalcium phosphate cr*09/07/2022 Wrist swelling, left [M25.432] 04/06/2023 Pain in left wrist [M25.532] 04/06/2023 Chronic right shoulder pain [M25.511, G89.29] 04/06/2023 Joint stiffness of multiple sites [M25.60] 04/06/2023 Encounter Status:Closed by JODI GONZALEZ on 12/01/24 Normal [facility] C-REACTIVE PROTEINon 025 CRP [Mass/Vol] mg/L Normal <=0.7 [facility] Comment on above: Performed By: #### H A1C, CMP, 29568-0, 02369-6, TSHR, CBCA #### [facility] ([id number]) [address], [address] [place] [address] CBC WITH AUTO DIFFERENTIALon 11-25-2024 BASOPHILS ABSOLUTE COUNT (10*3/UL) BY AUTOMATED COUNT 0.0 10*3/uL Normal 0.0-0.2 [facility] Comment on above: Performed By: #### H A1C, CMP, 08687-0, 84037-8, TSHR, CBCA #### [facility] ([id number]) [address], [address] [place] [address] BASOPHILS RELATIVE PERCENT BY AUTOMATED COUNT 0.5 % Normal [facility] Comment on above: Performed By: #### H A1C, CMP, 61968-5, 92049-8, TSHR, CBCA #### [facility] ([id number]) [address], [address] [place] [address] CELLAVISION DIFFERENTIAL TYPE AUTOMATED DIFFERENTIAL Normal [facility] Comment on above: Performed By: #### H A1C, CMP, 02053-3, 25223-3, TSHR, CBCA #### [facility] ([id number]) [address], [address] [place] [address] Eosinophils (Bld) [#/Vol] 0.1 10*3/uL Normal 0.0-0.4 [facility] Comment on above: Performed By: #### H A1C, CMP, 72309-1, 45166-8, TSHR, CBCA #### [facility] ([id number]) [address], [facility] [address] [place] [address] EOSINOPHILS RELATIVE PERCENT BY AUTOMATED COUNT 1.5 % Normal [facility] Comment on above: Performed By: #### H A1C, CMP, 31507-4, 49577-5, TSHR, CBCA #### [facility] ([id number]) [address], [address] [address] Erythrocyte distribution width (RBC) [Ratio] 15.8 % High 11.5-15 [facility] Comment on above: Performed By: #### H A1C, CMP, 47434-2, , TSHR, CBCA #### [facility] ([id number]) [address] [address] Hematocrit (Bld) [Volume fraction] 32.7 % Low 35-47 [facility] Comment on above: Performed By: #### H A1C, [facility], , , TSHR, CBCA #### [facility] ([id number]) [address] [address] Hemoglobin (Bld) [Mass/Vol] 11.0 g/dL Low 11.7-15.5 [facility] Comment on above: Performed By: #### H A1C, CMP, , , TSHR, CBCA #### [facility] ([id number]) [address] [address] LYMPHOCYTES ABSOLUTE COUNT (10*3/UL) BY AUTOMATED COUNT 0.8 10*3/uL Low 1.0-3.5 [facility] Comment on above: Performed By: #### H A1C, CMP, 38376-3, , TSHR, CBCA #### [facility] ([id number]) [address] [address] [place] [address] LYMPHOCYTES RELATIVE PERCENT BY AUTOMATED COUNT 11.8 % Normal [facility] Comment on above: Performed By: #### H A1C, CMP, 98594-4, 18925-9, TSHR, CBCA #### [facility] ([id number]) [address], [address] [place] [address] MCH (RBC) [Entitic mass] 30.0 pg Normal 27-34 [facility] Comment on above: Performed By: #### H A1C, CMP, 28542-3, 61521-7, TSHR, CBCA #### [facility] ([id number]) [address], [facility] [address] [place] [address] MCHC (RBC) [Mass/Vol] 33.6 g/dL Normal 32-36 [facility] Comment on above: Performed By: #### H A1C, CMP, 80215-1, 52970-4, TSHR, CBCA #### [facility] ([id number]) [address], [address] [place] [address] MCV (RBC) [Entitic vol] 89 fL Normal 80-100 [facility] Comment on above: Performed By: #### H A1C, CMP, 31783-8, , TSHR, CBCA #### [facility] ([id number]) [address], [facility] [address] [place] [address] MONOCYTES ABSOLUTE COUNT (10*3/UL) BY AUTOMATED COUNT 0.2 10*3/uL Normal 0.0-0.9 [facility] Comment on above: Performed By: #### H A1C, CMP, 77205-5, 11927-0, TSHR, CBCA #### [facility] ([id number]) [address] [address] [place] [address] MONOCYTES RELATIVE PERCENT BY AUTOMATED COUNT 3.6 % Normal [facility] Comment on above: Performed By: #### H A1C, CMP, 60497-2, 30726-4, TSHR, CBCA #### [facility] ([id number]) [address], [address] [place] [address] NEUTROPHILS ABSOLUTE COUNT BY AUTOMATED COUNT 5.3 10*3/uL Normal 1.5-6.6 [facility] Comment on above: Performed By: #### H A1C, CMP, 08882-1, 10747-4, TSHR, CBCA #### [facility] ([id number]) [address], [address] [place] [address] NEUTROPHILS RELATIVE PERCENT BY AUTOMATED COUNT 82.6 % Normal [facility] Comment on above: Performed By: #### H A1C, CMP, 17659-3, 91820-2, TSHR, CBCA #### [facility] ([id number]) [address], [address] [place] [address] Platelet mean volume (Bld) [Entitic vol] 9.4 fL Normal 7-12 [facility] Comment on above: Performed By: #### H A1C, CMP, 75414-8, , TSHR, CBCA #### [facility] ([id number]) [address], [address] [place] [address] Platelets (Bld) [#/Vol] 238 10*3/uL Normal 150-450 [facility] Comment on above: Performed By: #### H A1C, CMP, 49712-4, , TSHR, CBCA #### [facility] ([id number]) [address], [address] [place] [address] RBC COUNT 3.67 X10E12/L Low 3.8-5.2 [facility] Comment on above: Performed By: #### H A1C, CMP, 12110-3, 18716-7, TSHR, CBCA #### [facility] ([id number]) [address], [address] [place] [address] WBC (Bld) [#/Vol] 6.5 10*3/uL Normal 4-11 [facility] Comment on above: Performed By: #### H A1C, CMP, 03849-9, 70035-2, TSHR, CBCA #### [facility] ([id number]) [address], [address] [place] [address] COMPREHENSIVE METABOLIC PANE Viktor 11-25-2024 Albumin [Mass/Vol] 4.1 g/dL Normal 3.2-5.3 [facility] Comment on above: Performed By: #### H A1C, CMP, 35786-8, 27720-4, TSHR, CBCA #### [facility] ([id number]) [address], [address] [place] [address] ALP [Catalytic activity/Vol] 68 U/L Normal 39-130 [facility] Comment on above: Performed By: #### H A1C, CMP, 77775-0, 88825-6, TSHR, CBCA #### [facility] ([id number]) [address], [address] [place] [address] ALT [Catalytic activity/Vol] 16 U/L Normal <=31 [facility] Comment on above: Performed By: #### H A1C, CMP, 98014-0, 10690-9, TSHR, CBCA #### [facility] ([id number]) [address], [address] [place] [address] Anion gap [Moles/Vol] 11 mmol/L Normal 5-15 [facility] Comment on above: Performed By: #### H A1C, CMP, 91821-8, 12335-6, TSHR, CBCA #### [facility] ([id number]) [address], [address] [place] [address] AST [Catalytic activity/Vol] 15 U/L Normal <=41 [facility] Comment on above: Performed By: #### H A1C, CMP, 25536-3, 81941-5, TSHR, CBCA #### [facility] ([id number]) [address], [address] [place] [address] Bilirubin [Mass/Vol] 0.2 mg/dL Low 0.3-1.2 [facility] Comment on above: Performed By: #### H A1C, CMP, 59915-1, 61861-7, TSHR, CBCA #### [facility] ([id number]) [address], [address] [place] [address] Calcium [Mass/Vol] 9.1 mg/dL Normal 8.5-10.5 [facility] Comment on above: Performed By: #### H A1C, CMP, 58995-2, 22491-8, TSHR, CBCA #### [facility] ([id number]) [address], [address] [place] [address] Chloride [Moles/Vol] 104 mmol/L Normal 98-109 [facility] Comment on above: Performed By: #### H A1C, CMP, 62937-6, , TSHR, CBCA #### [facility] ([id number]) [address] [facility] [address] [place] [address] CO2 [Moles/Vol] 26 mmol/L Normal 22-32 [facility] Comment on above: Performed By: #### H A1C, CMP, 89462-9, 28673-6, TSHR, CBCA #### [facility] ([id number]) [address], [address] [place] [address] Creatinine [Mass/Vol] 0.89 mg/dL Normal 0.40-1.00 [facility] Comment on above: Result Comment: METH OD TRACEABLE TO IDMS STANDARD Performed By: #### H A1C, CMP, 78380-5, 26264-4, TSHR, CBCA #### [facility] ([id number]) [address] [address] [place] [address] GFR/1.73 sq M.predicted among non-blacks MDRD (S/P/Bld) [Vol rate/Area] 72 mL/min/{1.73_m2} Normal >=60 [facility] Comment on above: Result Comment: Replavell rted eGFR is based on the CKD-EPI 2020 equation that does not use a race coefficient. Performed By: #### H A1C, [facility], 01962-0, , TSHR, CBCA #### [facility] ([id number]) [address] [place] [address] Glucose [Mass/Vol] 198 mg/dL High 65-99 [facility] Comment on above: Performed By: #### H A1C, [facility], 94153-5, , TSHR, CBCA #### [facility] ([id number]) [address], [address] [place] [address] Potassium [Moles/Vol] 3.8 mmol/L Normal 3.5-5.0 [facility] Comment on above: Performed By: #### H A1C, [facility], , , TSHR, CBCA #### [facility] ([id number]) [address] [place] [address] Protein [Mass/Vol] 6.9 g/dL Normal 6.0-8.0 [facility] Comment on above: Performed By: #### H A1C, [facility], , , TSHR, CBCA #### [facility] ([id number]) [address], [address] [place] [address] Sodium [Moles/Vol] 141 mmol/L Normal 134-146 [facility] Comment on above: Performed By: #### H A1C, [facility], 83665-0, , TSHR, CBCA #### [facility] ([id number]) [address], [address] [place] [address] Urea nitrogen [Mass/Vol] 16 mg/dL Normal 5-27 [facility] Comment on above: Performed By: #### H A1C, [facility], 00258-8, 45770-3, TSHR, CBCA #### [facility] ([id number]) [address], [address] [place] [address] ERYTHROCYTE SEDIMENTATION RA TE (ESR)on 11-25-2024 ESR, ERYTHROCYTE SEDIMENTATION RATE 18 mm/h Normal 0-30 [facility] Comment on above: Performed By: #### H A1C, CMP, 91826-5, 73419-4, TSHR, CBCA #### [facility] ([id number]) [address], [address] [place] [address] VITAMIN D 25 HYDROXYon 11-25 VITAMIN D 25 HYD TOT 60.7 ng/mL Normal 30.0-100.0 [facility] Comment on above: Order Comment: Vitam in D status 25 [place] Vitamin D Deficiency <20 ng/mLInsufficiency 20-29 ng/mLSufficiency 30-100 ng/mLToxicity >100 ng/mLNOTE: A pediatric reference range has not been established by the cupboard builder of this kit. The [place] [employer] recommends a Vitamin D level of = or >20ng/mL in infants and children. Performed By: #### H A1C, [facility], 32997-5, 45847-7, TSHR, CBCA #### [facility] ([id number]) [address], [address] [place] [address] XR ELBOW LT MIN 3 VWSon 11-03 XR ELBOW LT MIN 3 VWS XR ELBOW LT MIN 3 VWS Left elbow: HISTORY: ankle pain. 4 views left elbow were obtained. There is no acute osseous, articular, or soft tissue abnormality. IMPRESSION: Negative exam. Finalized by Wally Pandey MD on 11/25/2024 6:11 PM Normal [facility] XR Elbow - left 3 Viewson Left elbow: HISTORY: ankle pain. 4 views left elbow were obtained. There is no acute osseous, articular, or soft tissue abnormality. IMPRESSION: Negative exam. Finalized by Wally Pandey MD on 11/25/2024 6:11 PM Wally Howard M D - 11/25/2024 Left elbow: HISTORY: ankle pain. 4 views left elbow were obtained. There is no acute osseous, articular, or soft tissue abnormality. IMPRESSION: Negative exam. Finalized by Wally Pandey MD on 11/25/2024 6:11 PM [facility] Radiology Study observation (narrative) [facility] XR Elbow - left 3 ViewsOrder ed By: Wally Pandey on 11-25-2024 [facility] Work Phone: BEDSIDE GLUCOSEon 10-31-2024 Glucose [Mass/Vol] 186 mg/dL High 65-99 [facility] Comment on above: Performed By: #### H A1C, CMP, 58599-3, 39152-3, TSHR, CBCA #### [facility] ([id number]) [address] [facility], [address] [place] [address] No Panel Informationon 10-29 Radiology Study observation (narrative) [facility] XR ELBOW 1-2 VIEWS LEFTon XR ELBOW 1-2 VIEWS LEFT Exam: XR ELBOW 1-2 VIEWS LEFT Reason for exam: Left olecranon pain in to forearm, post fall Prior comparative studies: None Findings: No fat pad sign is demonstrated. Alignment is intact. No fracture is visualized.There is focal soft tissue swelling over the proximal ulna. IMPRESSION: 1. No fracture or malalignment identified. Dictated on: 10/29/2024 8:56 AM This report has been electronically signed and approved by the interpreting radiologist. Normal Not Available XR Elbow - left 2 Viewson Exam: XR ELBOW 1-2 VIEWS LEFT Reason for exam: Left olecranon pain in to forearm, post fall Prior comparative studies: None Findings: No fat pad sign is demonstrated. Alignment is intact. No fracture is visualized.There is focal soft tissue swelling over the proximal ulna. IMPRESSION: 1. No fracture or malalignment identified. Dictated on: 10/29/2024 8:56 AM This report has been electronically signed and approved by the interpreting radiologist. IMAGING Renato Rubin MD - 10/29/2024 Exam: XR ELBOW 1-2 VIEWS LEFT Reason for exam: Left olecranon pain in to forearm, post fall Prior comparative studies: None Findings: No fat pad sign is demonstrated. Alignment is intact. No fracture is visualized.There is focal soft tissue swelling over the proximal ulna. IMPRESSION: 1. No fracture or malalignment identified. Dictated on: 10/29/2024 8:56 AM This report has been electronically signed and approved by the interpreting radiologist. [facility] XR FOREARM 2 VIEWS LEFTon XR FOREARM 2 VIEWS LEFT Exam: XR FOREARM 2 VIEWS LEFT Reason for exam: Left olecranon pain into forearm, post fall Prior comparative studies: None Findings: No fat pad sign is demonstrated. Extensive chondrocalcinosis and erosive change noted at the radiocarpal space and throughout the carpus. No fractures identified. IMPRESSION: 1. No fracture or malalignment identified. 2. Extensive chondrocalcinosis indicating CPPD with erosive change throughout the carpus. Dictated on: 10/29/2024 8:54 AM This report has been electronically signed and approved by the interpreting radiologist. Normal Not Available XR Radius and Ulna - left 2 Viewson 10-29-2024 Exam: XR FOREARM 2 VIEWS LEFT Reason for exam: Left olecranon pain into forearm, post fall Prior comparative studies: None Findings: No fat pad sign is demonstrated. Extensive chondrocalcinosis and erosive change noted at the radiocarpal space and throughout the carpus. No fractures identified. IMPRESSION: 1. No fracture or malalignment identified. 2. Extensive chondrocalcinosis indicating CPPD with erosive change throughout the carpus. Dictated on: 10/29/2024 8:54 AM This report has been electronically signed and approved by the interpreting radiologist. IMAGING Renato Rubin MD - 10/29/2024 Exam: XR FOREARM 2 VIEWS LEFT Reason for exam: Left olecranon pain into forearm, post fall Prior comparative studies: None Findings: No fat pad sign is demonstrated. Extensive chondrocalcinosis and erosive change noted at the radiocarpal space and throughout the carpus. No fractures identified. IMPRESSION: 1. No fracture or malalignment identified. 2. Extensive chondrocalcinosis indicating CPPD with erosive change throughout the carpus. Dictated on: 10/29/2024 8:54 AM This report has been electronically signed and approved by the interpreting radiologist. [facility] XR Radius and Ulna - left 2 ViewsOrdered By: Renato Rubin on 10-29-2024 [employer] Work Phone: CONTROLLED SUBSTANCE MONITOR ING, Uon 10-23-2024 CONTROL SUBSTANCE PANEL, URINE SEE COMMENTS Abnormal [facility] Comment on above: Result Comment: Test Result Flag Unit RefValue --- Controlled Substance Monitoring, U List Patient's Current NORCO Medications ADDITIONAL INFORMATION Accuracy and completeness of declared medications on reports solely dependent on information submitted by client. Creatinine, U 81.2 mg/dL Specific [place] 1.015 pH 5.4 Oxidants Negative Cutoff: 200 mg/L Comment Normal Barbiturates Negative ng/mL Cutoff: 200 Cocaine Negative ng/mL Cutoff: 150 This cocaine immunoassay targets benzoylecgonine the primary metabolite of cocaine. Tetrahydrocannabinol Negative ng/mL Cutoff: 50 This immunoassay targets delta-9 tetrahydrocannabinol carboxylic acid (THC-COOH), a metabolite of delta-9 tetrahydrocannabinol the main psychoactive ingredient of marijuana. ADDITIONAL INFORMATION This report is intended for use in clinical monitoring or management of patients. It is not intended for use in employment-related testing. Codeine Not Detected ng/mL Cutoff: 25 Tylenol 3 Jbsfhkb-0-voyn- Not Detected ng/mL Cutoff: 100 glucuronide Metabolite of codeine Morphine Not Detected ng/mL Cutoff: 25 Avinza, Jessica, MS Contin; Also a minor metabolite (10%) of codeine and can be seen in low concentrations (<2,000 ng/mL) with poppy seed ingestion. Vmomzqsl-7-mxzx- Not Detected ng/mL Cutoff: 100 glucuronide Metabolite of morphine 6-monoacetylmorphine Not Detected ng/mL Cutoff: 25 Metabolite of heroin Hydrocodone Present A ng/mL Cutoff: 25 Lortab, [place], Vicodin; Also a very minor metabolite of codeine and impurity (<1%) of oxycodone. Norhydrocodone Present A ng/mL Cutoff: 25 Metabolite of hydrocodone Dihydrocodeine Present A ng/mL Cutoff: 25 Metabolite of hydrocodone Hydromorphone Not Detected ng/mL Cutoff: 25 Dilaudid, Exalgo; Also a metabolite of hydrocodone and a minor (<5%) metabolite of morphine. Fpdtljtobngnk-0-nydl- Present A ng/mL Cutoff: 100 glucuronide Metabolite of hydromorphone Oxycodone Not Detected ng/mL Cutoff: 25 Endocet, Percocet, Oxycontin Noroxycodone Not Detected ng/mL Cutoff: 25 Metabolite of oxycodone Oxymorphone Not Detected ng/mL Cutoff: 25 Numorphan, Opana; Also a metabolite of oxycodone. Wvryzothqrz-4-mleo- Not Detected ng/mL Cutoff: 100 glucuronide Metabolite of oxymorphone and/or naloxone (nornaloxone) Noroxymorphone Not Detected ng/mL Cutoff: 25 Metabolite of oxymorphone and/or naloxone (nornaloxone) Fentanyl Not Detected ng/mL Cutoff: 2 Actiq, Duragesic, Fentora Norfentanyl Not Detected ng/mL Cutoff: 2 Metabolite of fentanyl Meperidine Not Detected ng/mL Cutoff: 25 Demerol Normeperidine Not Detected ng/mL Cutoff: 25 Metabolite of meperidine Naloxone Not Detected ng/mL Cutoff: 25 Narcan Bxciadnz-7-pxke- Not Detected ng/mL Cutoff: 100 glucuronide Metabolite of naloxone Methadone Not Detected ng/mL Cutoff: 25 Dolophine EDDP Not Detected ng/mL Cutoff: 25 Metabolite of methadone Propoxyphene Not Detected ng/mL Cutoff: 25 Darvon, Darvocet Norpropoxyphene Not Detected ng/mL Cutoff: 25 Metabolite of propoxyphene Tramadol Not Detected ng/mL Cutoff: 25 Tradol, Ultram, Ultracet O-desmethyltramadol Not Detected ng/mL Cutoff: 25 Metabolite of tramadol Tapentadol Not Detected ng/mL Cutoff: 25 Nucynta N-desmethyltapentadol Not Detected ng/mL Cutoff: 50 Metabolite of tapentadol Tapentadol-beta- Not Detected ng/mL Cutoff: 100 glucuronide Metabolite of tapentadol Buprenorphine Not Detected ng/mL Cutoff: 5 Buprenex, Suboxone Norbuprenorphine Not Detected ng/mL Cutoff: 5 Metabolite of buprenorphine Norbuprenorphine Not Detected ng/mL Cutoff: 20 glucuronide Metabolite of buprenorphine Opioid Interpretation SEE COMMENTS Test detected the presence of hydrocodone, two of its metabolites (norhydrocodone and dihydrocodeine), and qqriziwxxsurb-3-jmey-glucuronide (metabolite of hydromorphone). Suspect use of hydrocodone and/or hydromorphone within the past three days. Trace amounts of hydrocodone can also be found as an impurity in hydromorphone. ADDITIONAL INFORMATION This test was developed and its performance characteristics determined by [facility] in a manner consistent with CLIA requirements. This test has not been cleared or approved by the U.S. Food and Drug Administration. Alprazolam Not Detected ng/mL Cutoff: 10 Xanax Alpha-Hydroxyalprazolam Not Detected ng/mL Cutoff: 10 Metabolite of Alprazolam Alpha-Hydroxyalprazolam Not Detected ng/mL Cutoff: 50 Glucuronide Metabolite of Alprazolam Chlordiazepoxide Not Detected ng/mL Cutoff: 10 Librium Clobazam Not Detected ng/mL Cutoff: 10 Frisium, Onfi N-Desmethylclobazam Not Detected ng/mL Cutoff: 200 Metabolite of Clobazam Clonazepam Not Detected ng/mL Cutoff: (more content not included)... Performed By: #### H A1C, CMP, 77322-9, 46765-6, TSHR, CBCA #### [facility] ([id number]) [address] [place] [address], [address] [place] [address] GABAPENTIN, URINEon 10-24-19 25 GABAPENTIN,URINE >800.0 Normal [facility] Comment on above: Result Comment: Test Performed by: [facility]. [address] [place] [address] Performed By: #### H A1C, CMP, 60475-0, 56580-7, TSHR, CBCA #### [facility] ([id number]) [address] [place] [address], [address] [address] WAN GENERIC ORDERon 025 TEST RESULT SEE COMMENTS [facility] Comment on above: Result Comment: Test Result Flag Unit RefValue --- PREGABALIN URINE SEE COMMENTS Test Result Flag Units Reference Range Pregabalin, UR Pregabalin Negative ug/mL This test was developed and its performance characteristics determined by [facility]. It has not been cleared or approved by the Food and Drug Administration. Test Performed by: [employer]. [address] [place] [address] Performed By: #### H A1C, CMP, 17135-2, 22704-1, TSHR, CBCA #### [facility] ([id number]) [address] [place] [address], [address] [address] UNLISTED LAB TESTon 10-24-19 25 LOOK Sent to [facility]. [facility] Comment on above: Performed By: #### H A1C, CMP, 69657-2, 63732-6, TSHR, CBCA #### [facility] ([id number]) [address] [facility], [address] [place] [address] MR THORACIC SPINE WO CONTon 10-22-2024 MR THORACIC SPINE WO CONT MR THORACIC SPINE WO CONT EXAM: MR THORACIC SPINE WO CONT INDICATION: Disc displacement, thoracic, mid back pain COMPARISON: Chest x-ray 11/09/2020, MR thoracic spine 10/29/2009 TECHNIQUE/PROTOCOL: Multiplanar multisequence MRI of the thoracic spine without contrast performed. FINDINGS: Vertebral Bodies: The vertebral body heights are normal. Hemangioma at T9 vertebral body. Fatty bone marrow signal changes at the adjacent vertebral plates of T11-T12. Marrow edema at the anterior inferior vertebral endplate of T5, likely degenerative. Alignment: Normal. Extradural:There are no abnormal extradural fluid collections or masses. Spinal Cord: Focal T2 hyperintense, T1 hypointense signal within the central cord at the level of T6 measures approximately 4 mm in craniocaudal dimension and approximately 2 mm in AP dimension. The spinal cord is not expanded. Intervertebral discs: Advanced intervertebral disc space narrowing at T11-T12. Thoracic level: C7-T11: No significant spinal canal or neural foraminal stenosis. T11-T12: Moderate diffuse disc bulge contributes to mild effacement of the anterior thecal sac T12-L1: No significant spinal canal or neural foraminal stenosis. Paraspinal Soft Tissues: Unremarkable. Visualized Surrounding Organs and Viscera: Unremarkable. IMPRESSION: Focal T2 hyperintense/T1 hypointense signal in the central spinal cord at level of T6, likely a small syrinx. No etiology to explain syrinx seen on thoracic spine MR. Recommend short-term follow-up MR of the thoracic spine in 2-4 months with contrast for further characterization and to exclude enhancing components. Degenerative spondylosis at T11-T12 contributes to mild effacement of the anterior thecal sac. Otherwise, no significant spinal canal or neural foraminal narrowing is seen in the thoracic spine. Approved by Resident: Jose J Vargas DO on 10/22/2024 8:56 AM I, Wilmar Weber have personally reviewed the image(s) and agree with and/or edited the report Finalized by Wilmar Weber on 10/22/2024 11:16 AM Normal [facility] BEDSIDE GLUCOSEon 10-03-2024 Glucose [Mass/Vol] 77 mg/dL Normal 65-99 [facility] Comment on above: Performed By: #### H A1C, CMP, 53744-6, 07302-5, TSHR, CBCA #### [facility] ([id number]) [address] [facility], [address] [place] [address] CNPNon 09-15-2024 CNPN Telephone (OMKARULN) RHONA GARCIA ([id number]) 1960 F Date Time Provider Department 09/15/24 EUGENIO ELLIS During your visit today, we recorded the following information about you: Lida Key LPN 09/15/2024 3:17 PM Signed Received lab results from [facility]. Results placed on your desk for review. Awaiting hepatitis panel redraw. Eugenio Ellis MD 09/16/2024 8:14 AM Signed Please call [facility] to answer questions about the hepatitis panel panel and obtain results. Thank you. For chart; Please Call patient if [facility] not read to review results/released to My Chart if tests completed at F: Mildly low normal hemoglobin- care per primary care provider. Normal rest of labs and no inflammation. Continue same vitamin D intake with food. Recheck nonfasting labs in 3months.The orders have been placed. Please send orders cmp, cbc, esr, crp, vitamin D. Orders in epic. Please fax results to rheum office. Thank you! Happy to further review and discuss at follow up visit. Thank you. [employer] 09/11/24 low hgb 11.2normal cmp, potassium 4, creat 0.76, calcium 9, alkaline phosphatase 78, ast 16, alt 14, crp 0.4 (NL0-0.744mg/dL), vitamin D 54.8, esr 5 (NL0-30mm/hr), wbc 5.2, plts 286;negative quantiferon tb; Lida KeyMONSERRAT 09/16/2024 12:10 PM Signed Clarification provided yesterday. Please see other encounter. MC or results read 09/15/24. Allergies As of Date: 09/15/2024 Noted Allergy Reaction CINNAMON 03/06/2014 7 - Swelling SHELLFISH 06/29/2010 14 - Other: See Comments Comments: throat closes ARAVA (LEFLUNOMIDE) 08/23/2020 5 - Intolerance Comments: headaches, dizziness, blurred vision, hairloss, joint pain COCONUT 12/16/2015 8 - GI Upset DAIRY AID (LACTASE) 08/05/2013 8 - GI Upset DARVOCET A500 (PROPOXYPHENE N-ALLI*08/29/2010 14 - Other: See Comments Comments: Heart palpitations DUST 06/29/2010 14 - Other: See Comments Comments: itching eyes, scratchy throat SULFASALAZINE 12/05/2011 16 - Unknown TREE NUTS 01/17/2024 5 - Intolerance Comments: hives TREES 06/29/2010 16 - Unknown Date Reviewed: 03/29/2024 Reviewed by: Eugenio Ellis MD - Fully Assessed Reason for Visit: Results [95] Cmt: [facility] Prescriptions as of 09/16/2024 - amitriptyline (ELAVIL) 25 mg tablet Take 2 tablets by mouth daily at bedtime. - colchicine 0.6 mg tablet Take 1tab by mouth up to twice a day as tolerated. May cause diarrhea. - cyclobenzaprine (FLEXERIL) 10 mg tablet Take 1-2tabs 3times a day - gabapentin (NEURONTIN) 600 mg tablet Take 4caps by mouth per day - predniSONE (DELTASONE) 5 mg tablet TAKE 6 TABLETS BY MOUTH ONCE DAILY FOR 1 DAY; then TAKE 5 TABLETS BY MOUTH ONCE DAILY FOR 1 DAY; then TAKE 4 TABLETS BY MOUTH ONCE DAILY FOR 1 DAY; then TAKE 3 TABLETS BY MOUTH ONCE DAILY FOR 1 DAY; then TAKE 2 TABLETS BY MOUTH ONCE DAILY FOR 1 DAY; then TAKE 1 TABLET BY MOUTH ONCE DAILY FOR 1 DAY; take all doses WITH food and avoid NSAIDS - Etanercept (ENBREL SURECLICK) 50 mg/mL (1 mL) Inject 50mg (1 pen) subcutaneously once a week. Hold if ill or on antibiotics. No LIVE vaccines. - lisinopril (ZESTRIL) 40 mg tablet Take 1 tablet by mouth every afternoon. - omeprazole (PRILOSEC) 20 mg capsule Take 1 capsule by mouth two times a day. - acyclovir (ZOVIRAX) 400 mg tablet take 1 tablet by mouth twice a day - glimepiride (AMARYL) 1 mg tablet - therapeutic multivitamin (THERA VITAMIN) tablet Take 1 tablet by mouth every morning. - Biotin 10,000 mcg cap Take by mouth twice daily. - HYDROcodone-acetaminoph en (NORCO) 5-325 mg per tablet Take 1 tablet by mouth every 8 hours as needed. 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*12/16/2015 Chronic sacroiliac joint pain [M53.3, G89.29] 12/16/2015 Long-term use of high-risk medication [Z79.899] 09/28/2016 Costochondritis, acute [M94.0] 09/28/2016 Raynaud's disease without gangrene [I73.00] 05/10/2017 Elevated serum creatinine [R79.89] 01/18/2018 Bilateral swelling of feet and ankles [M25.471,*07/24/2019 Vitamin B12 deficiency [E53.8] 07/24/2019 Chronic fatigue [R53.82] 07/24/2019 Pseudogout involving multiple joints [M11.89] 09/07/2022 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 Normal [facility] CNPNon 09-12-2024 CNPN Telephone (RHEULN) RHONA GARCIA ([id number]) 1960 F Date Time Provider Department 09/12/24 EUGENIO ELLIS During your visit today, we recorded the following information about you: Lida Key LPN 09/12/2024 2:17 PM Signed Received labs from [facility]. Results placed on Dr Ellis's desk for review. Eugenio Ellis MD 09/15/2024 6:43 AM Signed Please call [facility] to answer questions about the hepatitis panel panel and the TB test. Patient willing to completed tests. Please fax results to rheumatology office. Thank you. Please Call patient if MyChart note not read to review results/released to My Chart if tests completed at F: Mildly low normal hemoglobin- care per primary care provider. Normal rest of labs and no inflammation. Continue same vitamin D intake with food. Recheck nonfasting labs in 3months.The orders have been placed. Please send orders cmp, cbc, esr, crp, vitamin D. Orders in epic. Please fax results to rheum office. Thank you! Happy to further review and discuss at follow up visit. Thank you. [facility] 09/11/24 low hgb 11.2normal cmp, potassium 4, creat 0.76, calcium 9, alkaline phosphatase 78, ast 16, alt 14, crp 0.4 (NL0-0.744mg/dL), vitamin D 54.8, esr 5 (NL0-30mm/hr), wbc 5.2, plts 286; Lida Key LPN 09/15/2024 11:33 AM Signed Spoke with lab at [facility]. Clarification provided. Labs mailed to patient's home address. Allergies As of Date: 09/12/2024 Noted Allergy Reaction CINNAMON 03/06/2014 7 - Swelling SHELLFISH 06/29/2010 14 - Other: See Comments Comments: throat closes ARAVA (LEFLUNOMIDE) 08/23/2020 5 - Intolerance Comments: headaches, dizziness, blurred vision, hairloss, joint pain COCONUT 12/16/2015 8 - GI Upset DAIRY AID (LACTASE) 08/05/2013 8 - GI Upset DARVOCET A500 (PROPOXYPHENE N-ALLI*08/29/2010 14 - Other: See Comments Comments: Heart palpitations DUST 06/29/2010 14 - Other: See Comments Comments: itching eyes, scratchy throat SULFASALAZINE 12/05/2011 16 - Unknown TREE NUTS 01/17/2024 5 - Intolerance Comments: hives TREES 06/29/2010 16 - Unknown Date Reviewed: 03/29/2024 Reviewed by: Eugenio Ellis MD - Fully Assessed Reason for Visit: Results [95] Cmt: [facility] Orders [681] Prescriptions as of 09/15/2024 - amitriptyline (ELAVIL) 25 mg tablet Take 2 tablets by mouth daily at bedtime. - colchicine 0.6 mg tablet Take 1tab by mouth up to twice a day as tolerated. May cause diarrhea. - cyclobenzaprine (FLEXERIL) 10 mg tablet Take 1-2tabs 3times a day - gabapentin (NEURONTIN) 600 mg tablet Take 4caps by mouth per day - predniSONE (DELTASONE) 5 mg tablet TAKE 6 TABLETS BY MOUTH ONCE DAILY FOR 1 DAY; then TAKE 5 TABLETS BY MOUTH ONCE DAILY FOR 1 DAY; then TAKE 4 TABLETS BY MOUTH ONCE DAILY FOR 1 DAY; then TAKE 3 TABLETS BY MOUTH ONCE DAILY FOR 1 DAY; then TAKE 2 TABLETS BY MOUTH ONCE DAILY FOR 1 DAY; then TAKE 1 TABLET BY MOUTH ONCE DAILY FOR 1 DAY; take all doses WITH food and avoid NSAIDS - Etanercept (ENBREL SURECLICK) 50 mg/mL (1 mL) Inject 50mg (1 pen) subcutaneously once a week. Hold if ill or on antibiotics. No LIVE vaccines. - lisinopril (ZESTRIL) 40 mg tablet Take 1 tablet by mouth every afternoon. - omeprazole (PRILOSEC) 20 mg capsule Take 1 capsule by mouth two times a day. - acyclovir (ZOVIRAX) 400 mg tablet take 1 tablet by mouth twice a day - glimepiride (AMARYL) 1 mg tablet - therapeutic multivitamin (THERA VITAMIN) tablet Take 1 tablet by mouth every morning. - Biotin 10,000 mcg cap Take by mouth twice daily. - HYDROcodone-acetaminoph en (NORCO) 5-325 mg per tablet Take 1 tablet by mouth every 8 hours as needed. 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*12/16/2015 Chronic sacroiliac joint pain [M53.3, G89.29] 12/16/2015 Long-term use of high-risk medication [Z79.899] 09/28/2016 Costochondritis, acute [M94.0] 09/28/2016 Raynaud's disease without gangrene [I73.00] 05/10/2017 Elevated serum creatinine [R79.89] 01/18/2018 Bilateral swelling of feet and ankles [M25.471,*07/24/2019 Vitamin B12 deficiency [E53.8] 07/24/2019 Chronic fatigue [R53.82] 07/24/2019 Pseudogout involving multiple joints [M11.89] 09/07/2022 Chondrocalcinosis due to dicalcium phosphate cr*09/07/2022 Wrist swelling, left [M25.432] 04/06/2023 Pain in left wrist [M25.532] 04/06/2023 Chronic right (more content not included)... Normal [facility] CBC AND AUTO DIFFon 09-12-19 25 ABSOLUTE BASOPHIL 0.0 X10E9/L Normal 0.0-0.2 [facility] Comment on above: Performed By: #### H A1C, CMP, 29302-8, 07697-8, TSHR, CBCA #### [facility] ([id number]) [address], [address] [place] [address] ABSOLUTE NEUTROPHIL 3.4 X10E9/L Normal 1.5-6.6 [facility] Comment on above: Performed By: #### H A1C, CMP, 51468-6, , TSHR, CBCA #### [facility] ([id number]) [address], [address] [place] [address] Basophils/100 WBC (Bld) 0.8 % Normal [facility] Comment on above: Performed By: #### H A1C, CMP, 18357-1, , TSHR, CBCA #### [facility] ([id number]) [address], [address] [place] [address] Eosinophils (Bld) [#/Vol] 0.3 10*3/uL Normal 0.0-0.4 [facility] Comment on above: Performed By: #### H A1C, CMP, 17546-9, , TSHR, CBCA #### [facility] ([id number]) [address], [address] [place] [address] Eosinophils/100 WBC (Bld) 5.5 % Normal [facility] Comment on above: Performed By: #### H A1C, CMP, 62085-5, 52273-8, TSHR, CBCA #### [facility] ([id number]) [address], [address] [place] [address] Erythrocyte distribution width (RBC) [Ratio] 15.2 % High 11.5-15.0 [facility] Comment on above: Performed By: #### H A1C, [facility], 76197-8, , TSHR, CBCA #### [facility] ([id number]) [address] [address] [place] [address] Hematocrit (Bld) [Volume fraction] 34.6 % Low 35-47 [facility] Comment on above: Performed By: #### H A1C, [facility], 14161-5, , TSHR, CBCA #### [facility] ([id number]) [address], [facility] [address] [place] [address] Hemoglobin (Bld) [Mass/Vol] 11.2 g/dL Low 11.7-15.5 [facility] Comment on above: Performed By: #### H A1C, [facility], , , TSHR, CBCA #### [facility] ([id number]) [address] [address] [place] [address] Lymphocytes (Bld) [#/Vol] 1.2 10*3/uL Normal 1.0-3.5 [facility] Comment on above: Performed By: #### H A1C, [facility], , , TSHR, CBCA #### [facility] ([id number]) [address], [facility] [address] [place] [address] Lymphocytes/100 WBC (Bld) 23.3 % Normal [facility] Comment on above: Performed By: #### H A1C, CMP, 76421-4, , TSHR, CBCA #### [facility] ([id number]) [address] [address] [place] [address] MCH (RBC) [Entitic mass] 28.9 pg Normal 27-34 [facility] Comment on above: Performed By: #### H A1C, CMP, 87668-5, , TSHR, CBCA #### [facility] ([id number]) [address], [address] [place] [address] MCHC (RBC) [Mass/Vol] 32.2 g/dL Normal 32-36 [facility] Comment on above: Performed By: #### H A1C, CMP, 89961-9, , TSHR, CBCA #### [facility] ([id number]) [address], [facility] [address] [place] [address] MCV (RBC) [Entitic vol] 90 fL Normal 80-100 [facility] Comment on above: Performed By: #### H A1C, CMP, 25261-7, , TSHR, CBCA #### [facility] ([id number]) [address], [address] [place] [address] Monocytes (Bld) [#/Vol] 0.3 10*3/uL Normal 0-0.9 [facility] Comment on above: Performed By: #### H A1C, CMP, 80175-5, , TSHR, CBCA #### [facility] ([id number]) [address], [address] [place] [address] Monocytes/100 WBC (Bld) 5.1 % Normal [facility] Comment on above: Performed By: #### H A1C, CMP, 34294-1, , TSHR, CBCA #### [facility] ([id number]) [address], [address] [place] [address] Neutrophils/100 WBC (Bld) 65.3 % Normal [facility] Comment on above: Performed By: #### H A1C, CMP, 30116-8, 28529-4, TSHR, CBCA #### [facility] ([id number]) [address], [address] [place] [address] Platelet mean volume (Bld) [Entitic vol] 9.1 fL Normal 7-12 [facility] Comment on above: Performed By: #### H A1C, CMP, 82746-7, 31073-9, TSHR, CBCA #### [facility] ([id number]) [address], [address] [place] [address] Platelets (Bld) [#/Vol] 286 10*3/uL Normal 150-450 [facility] Comment on above: Performed By: #### H A1C, CMP, 90972-1, 58987-1, TSHR, CBCA #### [facility] ([id number]) [address], [address] [place] [address] RBC COUNT 3.86 X10E12/L Normal 3.80-5.20 [facility] Comment on above: Performed By: #### H A1C, CMP, 19960-2, , TSHR, CBCA #### [facility] ([id number]) [address], [address] [place] [address] WBC (Bld) [#/Vol] 5.2 10*3/uL Normal 4.0-11.0 [facility] Comment on above: Performed By: #### H A1C, CMP, 97026-5, 41278-6, TSHR, CBCA #### [facility] ([id number]) [address], [address] [place] [address] COMPREHENSIVE METABOLIC PANE Viktor 09-11-2024 Albumin [Mass/Vol] 3.9 g/dL Normal 3.2-5.3 [facility] Comment on above: Performed By: #### H A1C, CMP, 40576-5, 71535-9, TSHR, CBCA #### [facility] ([id number]) [address], [address] [place] [address] ALP [Catalytic activity/Vol] 78 U/L Normal 39-130 [facility] Comment on above: Performed By: #### H A1C, CMP, 31158-5, 19981-3, TSHR, CBCA #### [facility] ([id number]) [address], [address] [place] [address] ALT [Catalytic activity/Vol] 14 U/L Normal 0-31 [facility] Comment on above: Performed By: #### H A1C, CMP, 11703-5, 71297-4, TSHR, CBCA #### [facility] ([id number]) [address], [address] [place] [address] Anion gap [Moles/Vol] 10 mmol/L Normal 5-15 [facility] Comment on above: Performed By: #### H A1C, CMP, 44097-7, 66821-5, TSHR, CBCA #### [facility] ([id number]) [address], [address] [place] [address] AST [Catalytic activity/Vol] 16 U/L Normal 0-41 [facility] Comment on above: Performed By: #### H A1C, CMP, 31805-3, 64189-8, TSHR, CBCA #### [facility] ([id number]) [address], [address] [place] [address] Bilirubin [Mass/Vol] 0.3 mg/dL Normal 0.3-1.2 [facility] Comment on above: Performed By: #### H A1C, CMP, 04255-8, 42489-9, TSHR, CBCA #### [facility] ([id number]) [address], [address] [place] [address] Calcium [Mass/Vol] 9.0 mg/dL Normal 8.5-10.5 [facility] Comment on above: Performed By: #### H A1C, CMP, 03357-1, 64281-5, TSHR, CBCA #### [facility] ([id number]) [address], [address] [place] [address] Chloride [Moles/Vol] 104 mmol/L Normal 98-109 [facility] Comment on above: Performed By: #### H A1C, CMP, 55538-2, 86882-3, TSHR, CBCA #### [facility] ([id number]) [address], [address] [place] [address] CO2 [Moles/Vol] 27 mmol/L Normal 22-32 [facility] Comment on above: Performed By: #### H A1C, CMP, 17738-3, 62829-3, TSHR, CBCA #### [facility] ([id number]) [address], [facility] [address] [place] [address] Creatinine [Mass/Vol] 0.76 mg/dL Normal 0.40-1.00 [facility] Comment on above: Result Comment: METH OD TRACEABLE TO IDMS STANDARD Performed By: #### H A1C, [facility], 96385-1, 34841-4, TSHR, CBCA #### [facility] ([id number]) [address] [place] [address] GFR/1.73 sq M.predicted among non-blacks MDRD (S/P/Bld) [Vol rate/Area] 87 mL/min/{1.73_m2} Normal >59 [facility] Comment on above: Result Comment: Reported eGFR is based on the CKD-EPI 2020 equation that does not use a race coefficient. Performed By: #### H A1C, CMP, 67405-6, 87357-3, TSHR, CBCA #### [facility] ([id number]) [address], [address] [place] [address] Glucose [Mass/Vol] 93 mg/dL Normal 65-99 [facility] Comment on above: Performed By: #### H A1C, CMP, 35414-2, 87255-7, TSHR, CBCA #### [facility] ([id number]) [address], [address] [place] [address] Potassium [Moles/Vol] 4.0 mmol/L Normal 3.5-5.0 [facility] Comment on above: Performed By: #### H A1C, CMP, 16853-5, 01216-5, TSHR, CBCA #### [facility] ([id number]) [address], [address] [place] [address] Protein [Mass/Vol] 6.9 g/dL Normal 6.0-8.0 [facility] Comment on above: Performed By: #### H A1C, CMP, 88391-8, , TSHR, CBCA #### [facility] ([id number]) [address], [address] [place] [address] Sodium [Moles/Vol] 141 mmol/L Normal 134-146 [facility] Comment on above: Performed By: #### H A1C, CMP, 90042-5, , TSHR, CBCA #### [facility] ([id number]) [address], [address] [place] [address] Urea nitrogen [Mass/Vol] 11 mg/dL Normal 5-27 [facility] Comment on above: Performed By: #### H A1C, CMP, 38372-3, 68646-8, TSHR, CBCA #### [facility] ([id number]) [address], [address] [place] [address] CRP [Mass/Vol]on 09-11-2024 C REACTIVE PROTEIN 0.4 mg/dL Normal 0.000-0.744 [facility] Comment on above: Performed By: #### H A1C, CMP, 40825-3, , TSHR, CBCA #### [facility] ([id number]) [address], [address] [place] [address] ESR Photometric method (Bld) [Velocity]on 04-10-2025 ESR, ERYTHROCYTE SEDIMENTATION RATE 5 mm/h Normal 0-30 [facility] Comment on above: Performed By: #### H A1C, CMP, 39816-9, 15217-9, TSHR, CBCA #### [facility] ([id number]) [address] [facility], [address] [place] [address] M. tuberculosis stim IFN-g p mikel (Bld)on 09-11-2024 Mitogen minus Nil Result 0.75 IU/mL Normal [facility] Comment on above: Performed By: #### H A1C, CMP, 01220-9, 15253-4, TSHR, CBCA #### [facility] ([id number]) [address] [facility], [address] [place] [address] Nil Result 0.04 IU/mL Normal [facility] Comment on above: Result Comment: NOTE Test Performed by: [facility] [place] [address] [place] [address] Sales And Leasing Agent: Trevin Boothe Ph.D.; CLIA# [id number] Performed By: #### H A1C, CMP, 46812-7, , TSHR, CBCA #### [facility] ([id number]) [address] [facility], [address] [place] [address] QuantiFERON-Tb Gold Plus Result Negative Normal Negative [facility] Comment on above: Result Comment: NOTE No interferon-gamma response to M. tuberculosis antigens was detected. Latent infection with M. tuberculosis is unlikely. A single negative result does not exclude infection with M. tuberculosis. In patients at high risk for M.tuberculosis infection, a second test should be considered in accordance with the 2017 ATS/IDSA/CDC Clinical Practice Guidelines for Diagnosis of Tuberculosis in Adults and Children [Fernyinsvictor hugon DM et. al. Clin. Infect. Dis. 2017;64(2):111-115]. The reference range for the 'TB1 Ag minus Nil Result' and 'TB2 Ag minus Nil Result' is an Interferon-gamma level <0.35 IU/mL. Performed By: #### H A1C, CMP, 86994-9, 31943-5, TSHR, CBCA #### [facility] ([id number]) [address], [address] [place] [address] TB1 Ag minus Nil Result 0.01 IU/mL Normal [facility] Comment on above: Performed By: #### H A1C, [facility], 61225-1, , TSHR, CBCA #### [facility] ([id number]) [address] [place] [address] TB2 Ag minus Nil Result 0.01 IU/mL Normal [facility] Comment on above: Performed By: #### H A1C, [facility], 89536-9, , TSHR, CBCA #### [facility] ([id number]) [address] [place] [address] POCT Hemoglobin A1con 2024 HbA1c (Bld) [Mass fraction] 7 % 4 - 7 % [facility] [address] Vitamin D+Metabolites [Mass/ Vol]on 09-11-2024 VITAMIN D 25 HYD TOT 54.8 ng/mL Normal 30-100 [facility] Comment on above: Result Comment: Vitamin D status 25 [place] Vitamin D Deficiency <20 ng/mL Insufficiency 20-29 ng/mL Sufficiency 30-100 ng/mL Toxicity >100 ng/mL NOTE: A pediatric reference range has not been established by the cupboard builder of this kit. The [place] [employer] recommends a Vitamin D level of = or >20ng/mL in infants and children. Performed By: #### H A1C, [facility], 38814-3, , TSHR, CBCA #### [facility] ([id number]) [address] [place] [address] Glucose Glucometer (BldC) [M ass/Vol]on 09-05-2024 Glucose [Mass/Vol] 181 mg/dL High 65-99 [facility] XR HAND RT MIN 3 VWSon 08-21 XR HAND RT MIN 3 VWS XR HAND RT MIN 3 VWS Clinical history: Hand pain. Carpometacarpal joint Right hand: 08/21/2024 COMPARISON: None FINDINGS: 3 views of the hand were obtained. Degenerative changes are prominent at the first carpometacarpal region. The trapezium is displaced or removed. Hypertrophic marginal new bone formation is present. There is generalized demineralization. Distal interphalangeal joint degenerative changes are present with marginal new bone formation greatest dorsally. No inflammatory erosions are present. There is some osseous irregularity along the dorsal aspect of the third metacarpal most likely benign. IMPRESSION: 1. Prominent degenerative changes and possible postoperative findings at the first carpometacarpal joint. No acute abnormality suggested. 2. Changes of osteoarthritis lateral joint. No definite inflammatory arthropathy. Finalized by Blue Watson MD on 08/21/2024 4:05 PM Normal [facility] XR Hand - right 3 Viewson Clinical history: Cadena nd pain. Carpometacarpal joint Right hand: 08/21/2024 COMPARISON: None FINDINGS: 3 views of the hand were obtained. Degenerative changes are prominent at the first carpometacarpal region. The trapezium is displaced or removed. Hypertrophic marginal new bone formation is present. There is generalized demineralization. Distal interphalangeal joint degenerative changes are present with marginal new bone formation greatest dorsally. No inflammatory erosions are present. There is some osseous irregularity along the dorsal aspect of the third metacarpal most likely benign. IMPRESSION: 1. Prominent degenerative changes and possible postoperative findings at the first carpometacarpal joint. No acute abnormality suggested. 2. Changes of osteoarthritis lateral joint. No definite inflammatory arthropathy. Finalized by Blue Watson MD on 08/21/2024 4:05 PM Blue Wallace MD - 08/21/2024 Clinical history: Hand pain. Carpometacarpal joint Right hand: 08/21/2024 COMPARISON: None FINDINGS: 3 views of the hand were obtained. Degenerative changes are prominent at the first carpometacarpal region. The trapezium is displaced or removed. Hypertrophic marginal new bone formation is present. There is generalized demineralization. Distal interphalangeal joint degenerative changes are present with marginal new bone formation greatest dorsally. No inflammatory erosions are present. There is some osseous irregularity along the dorsal aspect of the third metacarpal most likely benign. IMPRESSION: 1. Prominent degenerative changes and possible postoperative findings at the first carpometacarpal joint. No acute abnormality suggested. 2. Changes of osteoarthritis lateral joint. No definite inflammatory arthropathy. Finalized by Blue Watson MD on 08/21/2024 4:05 PM [facility] Radiology Study observation (narrative) [facility] XR Hand - right 3 ViewsOrder ed By: Blue Watson on 08-21-2024 [facility] Work Phone: Glucose Glucometer (BldC) [M ass/Vol]on 07-18-2024 Glucose [Mass/Vol] 115 mg/dL High 65-99 [facility] CNPHaylie 07-01-2024 CNPN Telephone ([address]) RHONA GARCIA ([id number]) 1960 F Date Time Provider Department 07/01/24 EUGENIO ELLIS During your visit today, we recorded the following information about you: Eugenio Ellis MD 07/01/2024 6:18 PM Signed Office Please precert enbrel for ankylosing spondylitis Failed trevor noriega Sent script to [facility] specialty pharmacy. Please Enroll in patient assistance Please Schedule nurse visit for injection instruction if approved/received Thank you. Patient's request for medication is as follows: Requested Prescriptions Signed Prescriptions Disp Refills Etanercept (ENBREL SURECLICK) 50 mg/mL (1 mL) 12 Each 3 Sig: Prefilled 50mg sq injection once a week. Hold if ill or on antibiotics. No LIVE vaccines. Authorizing Provider: EUGENIO ELLIS Prescription(s) as above. Please process accordingly. MD Elizabeth Ayers [place], MA 07/02/2024 8:56 AM Signed Will await pa approval from [facility] specialty pharmacy. Allergies As of Date: 07/01/2024 Noted Allergy Reaction CINNAMON 03/06/2014 7 - Swelling SHELLFISH 06/29/2010 14 - Other: See Comments Comments: throat closes ARAVA (LEFLUNOMIDE) 08/23/2020 5 - Intolerance Comments: headaches, dizziness, blurred vision, hairloss, joint pain COCONUT 12/16/2015 8 - GI Upset DAIRY AID (LACTASE) 08/05/2013 8 - GI Upset DARVOCET A500 (PROPOXYPHENE N-ALLI*08/29/2010 14 - Other: See Comments Comments: Heart palpitations DUST 06/29/2010 14 - Other: See Comments Comments: itching eyes, scratchy throat SULFASALAZINE 12/05/2011 16 - Unknown TREE NUTS 01/17/2024 5 - Intolerance Comments: hives TREES 06/29/2010 16 - Unknown Date Reviewed: 03/29/2024 Reviewed by: Eugenio Ellis MD - Fully Assessed Reason for Visit: Medication Authorization [[id number]] Primary Visit Diagnosis:Ankylosing spondylitis of multiple sites in spine (HCC) [M45.0] Order(s):Etanercept (ENBREL SURECLICK) 50 mg/mL (1 mL)Prefilled 50mg sq injection once a week. Hold if ill or on antibiotics. No LIVE vaccines.Disp: 12 EachRfl: 3 Prescriptions as of 07/02/2024 - Etanercept (ENBREL SURECLICK) 50 mg/mL (1 mL) Prefilled 50mg sq injection once a week. Hold if ill or on antibiotics. No LIVE vaccines. - predniSONE (DELTASONE) 5 mg tablet TAKE 6 TABLETS BY MOUTH ONCE DAILY FOR 1 DAY; then TAKE 5 TABLETS BY MOUTH ONCE DAILY FOR 1 DAY; then TAKE 4 TABLETS BY MOUTH ONCE DAILY FOR 1 DAY; then TAKE 3 TABLETS BY MOUTH ONCE DAILY FOR 1 DAY; then TAKE 2 TABLETS BY MOUTH ONCE DAILY FOR 1 DAY; then TAKE 1 TABLET BY MOUTH ONCE DAILY FOR 1 DAY; take all doses WITH food and avoid NSAIDS - gabapentin (NEURONTIN) 600 mg tablet Take 4caps by mouth per day - colchicine 0.6 mg tablet Take 1tab by mouth up to twice a day as tolerated. May cause diarrhea. - cyclobenzaprine (FLEXERIL) 10 mg tablet Take 1-2tabs 3times a day - amitriptyline (ELAVIL) 25 mg tablet Take 2 tablets by mouth daily at bedtime. - lisinopril (ZESTRIL) 40 mg tablet Take 1 tablet by mouth every afternoon. - omeprazole (PRILOSEC) 20 mg capsule Take 1 capsule by mouth two times a day. - acyclovir (ZOVIRAX) 400 mg tablet take 1 tablet by mouth twice a day - glimepiride (AMARYL) 1 mg tablet - therapeutic multivitamin (THERA VITAMIN) tablet Take 1 tablet by mouth every morning. - Biotin 10,000 mcg cap Take by mouth twice daily. - HYDROcodone-acetaminoph en (NORCO) 5-325 mg per tablet Take 1 tablet by mouth every 8 hours as needed. Medication notes this encounter COSENTYX PEN 300 MG/2 PENS (150 MG/ML) SUBCUTANEOUS >> Eugenio lElis MD 07/01/2024 6:18 PM recurrent infections Problem List As Of Date 07/01/2024 Noted Resolved Spondyloarthropathy [M47.819] 01/05/2010 Ankylosing spondylitis [M45.9] 08/29/2010 Venous insufficiency [I87.2] HTN (hypertension) [I10] Palpitations [R00.2] Primary localized osteoarthrosis, pelvic region*09/18/2013 Elevated sed rate [R70.0] 06/11/2015 Vitamin D deficiency [E55.9] 06/11/2015 Paresthesia of both hands [R20.2] 06/11/2015 Bilateral carpal tunnel syndrome [G56.03] 06/11/2015 Chronic bilateral low back pain without sciatic*12/16/2015 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*12/16/2015 Chronic sacroiliac joint pain [M53.3, G89.29] 12/16/2015 Long-term use of high-risk medication [Z79.899] 09/28/2016 Costochondritis, acute [M94.0] 09/28/2016 Raynaud's disease without gangrene [I73.00] 05/10/2017 Elevated serum creatinine [R79.89] 01/18/2018 Bilateral swelling of feet and ankles [M25.471,*07/24/2019 Vitamin B12 deficiency [E53.8] 07/24/2019 Chronic fatigue [R53.82] 07/24/2019 Pseudogout involving multiple joints [M11.89] 09/07/2022 Chondrocalcinosis due to dicalcium phosphate cr*09/07/2022 Wrist swelling, left [M25.432] 04/06/2023 Pain in left wrist [M25.532] 04/06/2023 Chronic right shoulder pain [M25.511, G89.29] 04/06/2023 J (more content not included)... Normal [facility] Glucose Glucometer (BldC) [M ass/Vol]on 06-06-2024 Glucose [Mass/Vol] 104 mg/dL High 65-99 [facility] Glucose Glucometer (BldC) [M ass/Vol]on 04-11-2024 Glucose [Mass/Vol] 129 mg/dL High 65-99 [facility] CNPNon 03-31-2024 CNPN Telephone (RULTTB) RHONA GARCIA ([id number]) 1960 F Date Time Provider Department 03/31/24 JENARO STONELTTB During your visit today, we recorded the following information about you: Jenaro Stone PCNA 03/31/2024 4:47 PM Signed Visit Type: MSK SYN Visit Length: 45, 50 OR 60 MINUTES Order Name/Protocol: US HAND/WRIST SYNOVIAL SCREEN RT+LT Preferred Provider: N/A Comment: N/A Location: ANY FACILITY Slot held: N/A Mariya Quezada 04/01/2024 10:14 AM Signed Called patient on April 01, 2024 at 10:14 AM to schedule their MSK US exam. No answer, left VM, 1st attempt. Enedelia Casarez 04/02/2024 8:13 AM Signed Called patient on April 02, 2024 at 8:13 AM to schedule their MSK US exam. No answer, left VM, 2nd attempt. Enedelia Casarez 04/03/2024 10:01 AM Signed Called patient on April 03, 2024 at 10:01 AM to schedule their MSK US exam. No answer, left VM, 3rd attempt. Allergies As of Date: 03/31/2024 Noted Allergy Reaction CINNAMON 03/06/2014 7 - Swelling SHELLFISH 06/29/2010 14 - Other: See Comments Comments: throat closes ARAVA (LEFLUNOMIDE) 08/23/2020 5 - Intolerance Comments: headaches, dizziness, blurred vision, hairloss, joint pain COCONUT 12/16/2015 8 - GI Upset DAIRY AID (LACTASE) 08/05/2013 8 - GI Upset DARVOCET A500 (PROPOXYPHENE N-ALLI*08/29/2010 14 - Other: See Comments Comments: Heart palpitations DUST 06/29/2010 14 - Other: See Comments Comments: itching eyes, scratchy throat SULFASALAZINE 12/05/2011 16 - Unknown TREE NUTS 01/17/2024 5 - Intolerance Comments: hives TREES 06/29/2010 16 - Unknown Date Reviewed: 03/29/2024 Reviewed by: Eugenio Ellis MD - Fully Assessed Reason for Visit: Appointment [[id number]] Prescriptions as of 04/03/2024 - colchicine 0.6 mg tablet Take 1tab by mouth up to twice a day as tolerated. May cause diarrhea. - gabapentin (NEURONTIN) 600 mg tablet Take 4caps by mouth per day - cyclobenzaprine (FLEXERIL) 10 mg tablet Take 1-2tabs 3times a day - predniSONE (DELTASONE) 5 mg tablet Day 1=6tabs with food, Day 2=5tabs, Day 3=4tabs, Day 4=3tabs, Day 5=2tabs, Day 6=1tab, No NSAIDs on med - secukinumab (COSENTYX PEN, 2 PENS,) 150 mg/mL INJECT 2 PENS UNDER THE SKIN EVERY 4 WEEKS. - amitriptyline (ELAVIL) 25 mg tablet Take 2 tablets by mouth daily at bedtime. - lisinopril (ZESTRIL) 40 mg tablet Take 1 tablet by mouth every afternoon. - omeprazole (PRILOSEC) 20 mg capsule Take 1 capsule by mouth two times a day. - acyclovir (ZOVIRAX) 400 mg tablet take 1 tablet by mouth twice a day - glimepiride (AMARYL) 1 mg tablet - therapeutic multivitamin (THERA VITAMIN) tablet Take 1 tablet by mouth every morning. - Biotin 10,000 mcg cap Take by mouth twice daily. - HYDROcodone-acetaminoph en (NORCO) 5-325 mg per tablet Take 1 tablet by mouth every 8 hours as needed. 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*12/16/2015 Chronic sacroiliac joint pain [M53.3, G89.29] 12/16/2015 Long-term use of high-risk medication [Z79.899] 09/28/2016 Costochondritis, acute [M94.0] 09/28/2016 Raynaud's disease without gangrene [I73.00] 05/10/2017 Elevated serum creatinine [R79.89] 01/18/2018 Bilateral swelling of feet and ankles [M25.471,*07/24/2019 Vitamin B12 deficiency [E53.8] 07/24/2019 Chronic fatigue [R53.82] 07/24/2019 Pseudogout involving multiple joints [M11.89] 09/07/2022 Chondrocalcinosis due to dicalcium phosphate cr*09/07/2022 Wrist swelling, left [M25.432] 04/06/2023 Pain in left wrist [M25.532] 04/06/2023 Chronic right shoulder pain [M25.511, G89.29] 04/06/2023 Joint stiffness of multiple sites [M25.60] 04/06/2023 Encounter Status:Closed by ENEDELIA CASAREZ on 04/03/24 Normal [facility] CBC AND AUTO DIFFon 03-26-20 ABSOLUTE BASOPHIL 0.0 X10E9/L Normal 0.0-0.2 [facility] Comment on above: Performed By: #### H A1C, CMP, 65973-2, , TSHR, CBCA #### [facility] ([id number]) [address], [address] [place] [address] ABSOLUTE NEUTROPHIL 3.0 X10E9/L Normal 1.5-6.6 [facility] Comment on above: Performed By: #### H A1C, CMP, 95609-6, , TSHR, CBCA #### [facility] ([id number]) [address], [address] [place] [address] Basophils/100 WBC (Bld) 0.6 % Normal [facility] Comment on above: Performed By: #### H A1C, CMP, 47012-7, , TSHR, CBCA #### [facility] ([id number]) [address], [address] [place] [address] Eosinophils (Bld) [#/Vol] 0.2 10*3/uL Normal 0.0-0.4 [facility] Comment on above: Performed By: #### H A1C, CMP, 49084-9, , TSHR, CBCA #### [facility] ([id number]) [address], [address] [place] [address] Eosinophils/100 WBC (Bld) 4.5 % Normal [facility] Comment on above: Performed By: #### H A1C, CMP, 30057-6, , TSHR, CBCA #### [facility] ([id number]) [address], [address] [place] [address] Erythrocyte distribution width (RBC) [Ratio] 13.7 % Normal 11.5-15.0 [facility] Comment on above: Performed By: #### H A1C, CMP, , , TSHR, CBCA #### [facility] ([id number]) [address], [facility] [address] [place] [address] Hematocrit (Bld) [Volume fraction] 33.5 % Low 35-47 [facility] Comment on above: Performed By: #### H A1C, CMP, , , TSHR, CBCA #### [facility] ([id number]) [address], [address] [place] [address] Hemoglobin (Bld) [Mass/Vol] 11.1 g/dL Low 11.7-15.5 [facility] Comment on above: Performed By: #### H A1C, CMP, , , TSHR, CBCA #### [facility] ([id number]) [address], [address] [place] [address] Lymphocytes (Bld) [#/Vol] 1.0 10*3/uL Normal 1.0-3.5 [facility] Comment on above: Performed By: #### H A1C, CMP, 05377-2, , TSHR, CBCA #### [facility] ([id number]) [address], [address] [place] [address] Lymphocytes/100 WBC (Bld) 21.6 % Normal [facility] Comment on above: Performed By: #### H A1C, CMP, , , TSHR, CBCA #### [facility] ([id number]) [address], [address] [place] [address] MCH (RBC) [Entitic mass] 30.0 pg Normal 27-34 [facility] Comment on above: Performed By: #### H A1C, CMP, 48736-6, , TSHR, CBCA #### [facility] ([id number]) [address], [address] [place] [address] MCHC (RBC) [Mass/Vol] 33.0 g/dL Normal 32-36 [facility] Comment on above: Performed By: #### H A1C, CMP, , , TSHR, CBCA #### [facility] ([id number]) [address], [address] [place] [address] MCV (RBC) [Entitic vol] 91 fL Normal 80-100 [facility] Comment on above: Performed By: #### H A1C, CMP, , , TSHR, CBCA #### [facility] ([id number]) [address], [address] [place] [address] Monocytes (Bld) [#/Vol] 0.3 10*3/uL Normal 0-0.9 [facility] Comment on above: Performed By: #### H A1C, CMP, , , TSHR, CBCA #### [facility] ([id number]) [address], [address] [place] [address] Monocytes/100 WBC (Bld) 7.3 % Normal [facility] Comment on above: Performed By: #### H A1C, CMP, 65907-5, , TSHR, CBCA #### [facility] ([id number]) [address], [address] [place] [address] Neutrophils/100 WBC (Bld) 66.0 % Normal [facility] Comment on above: Performed By: #### H A1C, CMP, 82604-5, , TSHR, CBCA #### [facility] ([id number]) [address], [address] [place] [address] Platelet mean volume (Bld) [Entitic vol] 8.8 fL Normal 7-12 [facility] Comment on above: Performed By: #### H A1C, CMP, 81681-5, , TSHR, CBCA #### [facility] ([id number]) [address], [facility] [address] [place] [address] Platelets (Bld) [#/Vol] 252 10*3/uL Normal 150-450 [facility] Comment on above: Performed By: #### H A1C, CMP, 60342-6, , TSHR, CBCA #### [facility] ([id number]) [address], [address] [place] [address] RBC COUNT 3.68 X10E12/L Low 3.80-5.20 [facility] Comment on above: Performed By: #### H A1C, CMP, , , TSHR, CBCA #### [facility] ([id number]) [address], [facility] [address] [place] [address] WBC (Bld) [#/Vol] 4.6 10*3/uL Normal 4.0-11.0 [facility] Comment on above: Performed By: #### H A1C, CMP, 38879-3, , TSHR, CBCA #### [facility] ([id number]) [address], [address] [place] [address] COMPREHENSIVE METABOLIC PANE Viktor 03-26-2024 Albumin [Mass/Vol] 3.7 g/dL Normal 3.2-5.3 [facility] Comment on above: Performed By: #### C MP, 1987-10, 2132-02, 83428-2, CBCA, 41232-7 #### [facility] ([id number]) [address], [address] [place] [address] ALP [Catalytic activity/Vol] 69 U/L Normal 39-130 [facility] Comment on above: Performed By: #### C BETZY, 1987-10, 2132-02, , CBCA, 35029-8 #### [facility] ([id number]) [address], [address] [place] [address] ALT [Catalytic activity/Vol] 9 U/L Normal 0-31 [facility] Comment on above: Performed By: #### Daron BO, 1987-10, 2132-02, , CBCA, 96731-1 #### [facility] ([id number]) [address], [address] [place] [address] Anion gap [Moles/Vol] 10 mmol/L Normal 5-15 [facility] Comment on above: Performed By: #### Daron BO, 1987-10, 2132-02, , CBCA, 14191-5 #### [facility] ([id number]) [address], [address] [place] [address] AST [Catalytic activity/Vol] 12 U/L Normal 0-41 [facility] Comment on above: Performed By: #### Daron OB, 1987-10, 2132-02, , CBCA, 67628-3 #### [facility] ([id number]) [address], [address] [place] [address] Bilirubin [Mass/Vol] 0.2 mg/dL Low 0.3-1.2 [facility] Comment on above: Performed By: #### Daron BO, 1987-10, 2132-02, 55136-3, CBCA, 38878-4 #### [facility] ([id number]) [address], [address] [place] [address] Calcium [Mass/Vol] 9.1 mg/dL Normal 8.5-10.5 [facility] Comment on above: Performed By: #### Daron BO, 1987-10, 2132-02, 20733-3, CBCA, 67132-7 #### [facility] ([id number]) [address], [address] [place] [address] Chloride [Moles/Vol] 102 mmol/L Normal 98-109 [facility] Comment on above: Performed By: #### Daron BO, 1987-10, 2132-02, , CBCA, 92625-6 #### [facility] ([id number]) [address], [address] [place] [address] CO2 [Moles/Vol] 27 mmol/L Normal 22-32 [facility] Comment on above: Performed By: #### Daron BO, 1987-10, 2132-02, , CBCA, 12132-3 #### [facility] ([id number]) [address], [address] [place] [address] Creatinine [Mass/Vol] 0.96 mg/dL Normal 0.40-1.00 [facility] Comment on above: Result Comment: METH OD TRACEABLE TO IDMS STANDARD Performed By: #### Daron BO, 1987-10, 2132-02, , CBCA, 06723-5 #### [facility] ([id number]) [address] [address] [place] [address] GFR/1.73 sq M.predicted among non-blacks MDRD (S/P/Bld) [Vol rate/Area] 66 mL/min/{1.73_m2} Normal >59 [facility] Comment on above: Result Comment: Reported eGFR is based on the CKD-EPI 2020 equation that does not use a race coefficient. Performed By: #### Daron BO, 1987-10, 2132-02, , CBCA, 47999-1 #### [facility] ([id number]) [address], [address] [place] [address] Glucose [Mass/Vol] 142 mg/dL High 65-99 [facility] Comment on above: Performed By: #### Daron BO, 1987-10, 2132-02, , CBCA, 98854-5 #### [facility] ([id number]) [address], [address] [place] [address] Potassium [Moles/Vol] 4.1 mmol/L Normal 3.5-5.0 [facility] Comment on above: Performed By: #### Daron BO, 1987-10, 2132-02, , CBCA, 60865-5 #### [facility] ([id number]) [address], [address] [place] [address] Protein [Mass/Vol] 6.7 g/dL Normal 6.0-8.0 [facility] Comment on above: Performed By: #### Daron BO, 1987-10, 2132-02, , CBCA, 16370-2 #### [facility] ([id number]) [address], [address] [place] [address] Sodium [Moles/Vol] 139 mmol/L Normal 134-146 [facility] Comment on above: Performed By: #### Daron BO, 1987-10, 2132-02, , CBCA, 37211-0 #### [facility] ([id number]) [address], [address] [place] [address] Urea nitrogen [Mass/Vol] 15 mg/dL Normal 5-27 [facility] Comment on above: Performed By: #### Daron BO, 1987-10, 2132-02, , CBCA, 08618-0 #### [facility] ([id number]) [address] [place] [address] CRP [Mass/Vol]on 03-26-2024 C REACTIVE PROTEIN 0.3 mg/dL Normal 0.000-0.744 [facility] Comment on above: Performed By: #### Daron BO, 1987-10, 2132-02, 15549-2, CBCA, 18707-8 #### [facility] ([id number]) [address], [address] [place] [address] ESR Photometric method (Bld) [Velocity]on 03-26-2024 ESR, ERYTHROCYTE SEDIMENTATION RATE 27 mm/h Normal 0-30 [facility] Comment on above: Performed By: #### H A1C, CMP, 03046-5, 77972-6, TSHR, CBCA #### [facility] ([id number]) [address] [place] [address] VITAMIN B12on 03-26-2024 Cobalamin (Vitamin B12) [Mass/Vol] pg/mL High 180-914 [facility] Comment on above: Performed By: #### Daron BO, 1987-10, 2132-02, 15448-4, CBCA, 72156-7 #### [facility] ([id number]) [address] [place] [address] Vitamin D+Metabolites [Mass/ Vol]on 03-26-2024 VITAMIN D 25 HYD TOT 54.4 ng/mL Normal 30-100 [facility] Comment on above: Result Comment: Vitamin D status 25 [place] Vitamin D Deficiency <20 ng/mL Insufficiency 20-29 ng/mL Sufficiency 30-100 ng/mL Toxicity >100 ng/mL NOTE: A pediatric reference range has not been established by the cupboard builder of this kit. The [place] [employer] recommends a Vitamin D level of = or >20ng/mL in infants and children. Performed By: #### H A1C, CMP, 39924-7, 41141-0, TSHR, CBCA #### [facility] ([id number]) [address] [facility], [address] [place] [address] Drugs of abuse panel Screen (U)on 03-25-2024 Control Substance Panel, Urine SEE COMMENTS 03/25/2024 08:51 AM [facility] [employer] [facility] [place] [facility] Comment on above: NOTE Test Result Flag Unit RefValue Controlled Substance Monitoring, U List Patient's Current SEE ATTACHMENT Medications ADDITIONAL INFORMATION Accuracy and completeness of declared medications on reports solely dependent on information submitted by client. Creatinine, U 34.8 mg/dL Specific [place] 1.008 pH 5.5 Oxidants Negative -- REFERENCE VALUE -- Cutoff: 200 mg/L Comment Normal Barbiturates Negative ng/mL Cutoff: 200 Cocaine Negative ng/mL Cutoff: 150 This cocaine immunoassay targets benzoylecgonine the primary metabolite of cocaine. Tetrahydrocannabinol Negative ng/mL Cutoff: 50 This immunoassay targets delta-9 tetrahydrocannabinol carboxylic acid (THC-COOH), a metabolite of delta-9 tetrahydrocannabinol the main psychoactive ingredient of marijuana. ADDITIONAL INFORMATION This report is intended for use in clinical monitoring or management of patients. It is not intended for use in employment-related testing. Codeine Not Detected ng/mL Cutoff: 25 Tylenol 3 Adfacoc-8-zzgn- Not Detected ng/mL Cutoff: 100 glucuronide Metabolite of codeine Morphine Not Detected ng/mL Cutoff: 25 Jessica Navarro, MS Contin; Also a minor metabolite (10%) of codeine and can be seen in low concentrations (<2,000 ng/mL) with poppy seed ingestion. Gxntbrqs-1-wayg- Not Detected ng/mL Cutoff: 100 glucuronide Metabolite of morphine 6-monoacetylmorphine Not Detected ng/mL Cutoff: 25 Metabolite of heroin Hydrocodone Present A ng/mL Cutoff: 25 Lortab, [place], Vicodin; Also a very minor metabolite of codeine and impurity (<1%) of oxycodone. Norhydrocodone Present A ng/mL Cutoff: 25 Metabolite of hydrocodone Dihydrocodeine Present A ng/mL Cutoff: 25 Metabolite of hydrocodone Hydromorphone Not Detected ng/mL Cutoff: 25 Dilaudid, Exalgo; Also a metabolite of hydrocodone and a minor (<5%) metabolite of morphine. Sxpbncztgbrbl-2-unpu- Present A ng/mL Cutoff: 100 glucuronide Metabolite of hydromorphone Oxycodone Not Detected ng/mL Cutoff: 25 Endocet, Percocet, Oxycontin Noroxycodone Not Detected ng/mL Cutoff: 25 Metabolite of oxycodone Oxymorphone Not Detected ng/mL Cutoff: 25 Numorphan, Opana; Also a metabolite of oxycodone. Aiwfzbzigue-8-mfox- Not Detected ng/mL Cutoff: 100 glucuronide Metabolite of oxymorphone and/or naloxone (nornaloxone) Noroxymorphone Not Detected ng/mL Cutoff: 25 Metabolite of oxymorphone and/or naloxone (nornaloxone) Fentanyl Not Detected ng/mL Cutoff: 2 Actiq, Duragesic, [place]ent[place] Norfentanyl Not Detected ng/mL Cutoff: 2 Metabolite of fentanyl Meperidine Not Detected ng/mL Cutoff: 25 Demerol Normeperidine Not Detected ng/mL Cutoff: 25 Metabolite of meperidine Naloxone Not Detected ng/mL Cutoff: 25 Narcan Jzlnlulx-1-khvr- Not Detected ng/mL Cutoff: 100 glucuronide Metabolite of naloxone Methadone Not Detected ng/mL Cutoff: 25 Dolophine EDDP Not Detected ng/mL Cutoff: 25 Metabolite of methadone Propoxyphene Not Detected ng/mL Cutoff: 25 Darvon, Darvocet Norpropoxyphene Not Detected ng/mL Cutoff: 25 Metabolite of propoxyphene Tramadol Not Detected ng/mL Cutoff: 25 Tradol, Ultram, Ultracet O-desmethyltramadol Not Detected ng/mL Cutoff: 25 Metabolite of tramadol Tapentadol Not Detected ng/mL Cutoff: 25 Nucynta N-desmethyltapentadol Not Detected ng/mL Cutoff: 50 Metabolite of tapentadol Tapentadol-beta- Not Detected ng/mL Cutoff: 100 glucuronide Metabolite of tapentadol Buprenorphine Not Detected ng/mL Cutoff: 5 Buprenex, Suboxone Norbuprenorphine Not Detected ng/mL Cutoff: 5 Metabolite of buprenorphine Norbuprenorphine Not Detected ng/mL Cutoff: 20 glucuronide Metabolite of buprenorphine Opioid Interpretation (more content not included)... Interpretation and review of laboratory results Abnormal [facility] [address] [facility] Drugs of abuse panel Screen (U)on 03-20-2024 Control Substance Panel, Urine SEE COMMENTS 03/25/2024 08:51 AM Abnormal [facility] Comment on above: Result Comment: NOTE Test Result Flag Unit RefValue Controlled Substance Monitoring, U List Patient's Current SEE ATTACHMENT Medications ADDITIONAL INFORMATION Accuracy and completeness of declared medications on reports solely dependent on information submitted by client. Creatinine, U 34.8 mg/dL Specific [place] 1.008 pH 5.5 Oxidants Negative -- REFERENCE VALUE -- Cutoff: 200 mg/L Comment Normal Barbiturates Negative ng/mL Cutoff: 200 Cocaine Negative ng/mL Cutoff: 150 This cocaine immunoassay targets benzoylecgonine the primary metabolite of cocaine. Tetrahydrocannabinol Negative ng/mL Cutoff: 50 This immunoassay targets delta-9 tetrahydrocannabinol carboxylic acid (THC-COOH), a metabolite of delta-9 tetrahydrocannabinol the main psychoactive ingredient of marijuana. ADDITIONAL INFORMATION This report is intended for use in clinical monitoring or management of patients. It is not intended for use in employment-related testing. Codeine Not Detected ng/mL Cutoff: 25 Tylenol 3 Fayluoe-4-trkl- Not Detected ng/mL Cutoff: 100 glucuronide Metabolite of codeine Morphine Not Detected ng/mL Cutoff: 25 Avinza, Jessica, MS Contin; Also a minor metabolite (10%) of codeine and can be seen in low concentrations (<2,000 ng/mL) with poppy seed ingestion. Ivgnmebi-5-ezpj- Not Detected ng/mL Cutoff: 100 glucuronide Metabolite of morphine 6-monoacetylmorphine Not Detected ng/mL Cutoff: 25 Metabolite of heroin Hydrocodone Present A ng/mL Cutoff: 25 Lortab, [place], Vicodin; Also a very minor metabolite of codeine and impurity (<1%) of oxycodone. Norhydrocodone Present A ng/mL Cutoff: 25 Metabolite of hydrocodone Dihydrocodeine Present A ng/mL Cutoff: 25 Metabolite of hydrocodone Hydromorphone Not Detected ng/mL Cutoff: 25 Dilaudid, Exalgo; Also a metabolite of hydrocodone and a minor (<5%) metabolite of morphine. Zjmeoeczximbu-5-oltu- Present A ng/mL Cutoff: 100 glucuronide Metabolite of hydromorphone Oxycodone Not Detected ng/mL Cutoff: 25 Endocet, Percocet, Oxycontin Noroxycodone Not Detected ng/mL Cutoff: 25 Metabolite of oxycodone Oxymorphone Not Detected ng/mL Cutoff: 25 Numorphan, Opana; Also a metabolite of oxycodone. Acuhgqgqnnd-2-hykz- Not Detected ng/mL Cutoff: 100 glucuronide Metabolite of oxymorphone and/or naloxone (nornaloxone) Noroxymorphone Not Detected ng/mL Cutoff: 25 Metabolite of oxymorphone and/or naloxone (nornaloxone) Fentanyl Not Detected ng/mL Cutoff: 2 Actiq, Duragesic, [place] Norfentanyl Not Detected ng/mL Cutoff: 2 Metabolite of fentanyl Meperidine Not Detected ng/mL Cutoff: 25 Demerol Normeperidine Not Detected ng/mL Cutoff: 25 Metabolite of meperidine Naloxone Not Detected ng/mL Cutoff: 25 Narcan Wcjjhzht-5-exvt- Not Detected ng/mL Cutoff: 100 glucuronide Metabolite of naloxone Methadone Not Detected ng/mL Cutoff: 25 Dolophine EDDP Not Detected ng/mL Cutoff: 25 Metabolite of methadone Propoxyphene Not Detected ng/mL Cutoff: 25 Darvon, Darvocet Norpropoxyphene Not Detected ng/mL Cutoff: 25 Metabolite of propoxyphene Tramadol Not Detected ng/mL Cutoff: 25 Tradol, Ultram, Ultracet O-desmethyltramadol Not Detected ng/mL Cutoff: 25 Metabolite of tramadol Tapentadol Not Detected ng/mL Cutoff: 25 Nucynta N-desmethyltapentadol Not Detected ng/mL Cutoff: 50 Metabolite of tapentadol Tapentadol-beta- Not Detected ng/mL Cutoff: 100 glucuronide Metabolite of tapentadol Buprenorphine Not Detected ng/mL Cutoff: 5 Buprenex, Suboxone Norbuprenorphine Not Detected ng/mL Cutoff: 5 Metabolite of buprenorphine Norbuprenorphine Not Detected ng/mL Cutoff: 20 glucuronide Metabolite of buprenorphine Opioid Interpretation See Note Test detected the presence of hydrocodone, two of its metabolites (norhydrocodone and dihydrocodeine), and vqohtlrmzubzz-6-odjs-glucuronide (metabolite of hydromorphone). Suspect use of hydrocodone and/or hydromorphone within the past three days. Trace amounts of hydrocodone can also be found as an impurity in hydromorphone. ADDITIONAL INFORMATION This test was developed and its performance characteristics determined by [facility] in a manner consistent with CLIA requirements. This test has not been cleared or approved by the U.S. Food and Drug Administration. Alprazolam Not Detected ng/mL Cutoff: 10 Xanax Alpha-Hydroxyalprazolam Not Detected ng/mL Cutoff: 10 Metabolite of Alprazolam Alpha-Hydroxyalprazolam Not Detected ng/mL Cutoff: 50 Glucuronide Metabolite of Alprazolam Chlordiazepoxide Not Detected ng/mL Cutoff: 10 Librium Clobazam Not Detected ng/mL Cutoff: 10 Frisium, Onfi N-Desmethylclobazam Not Detected ng/mL Cutoff: 200 Metabolite of Clobazam Clona (more content not included)... Glucose Glucometer (BldC) [M ass/Vol]on 02-29-2024 Glucose [Mass/Vol] 130 mg/dL High 65-99 [facility] CBC AND AUTO DIFFon 02-11-20 ABSOLUTE BASOPHIL 0.0 X10E9/L Normal 0.0-0.2 [facility] Comment on above: Performed By: #### H A1C, CMP, 69546-7, , TSHR, CBCA #### [facility] ([id number]) [address], [address] [place] [address] ABSOLUTE NEUTROPHIL 2.4 X10E9/L Normal 1.5-6.6 [facility] Comment on above: Performed By: #### H A1C, CMP, 83172-6, , TSHR, CBCA #### [facility] ([id number]) [address], [address] [place] [address] Basophils/100 WBC (Bld) 0.5 % Normal [facility] Comment on above: Performed By: #### H A1C, CMP, 65239-3, , TSHR, CBCA #### [facility] ([id number]) [address], [address] [place] [address] Eosinophils (Bld) [#/Vol] 0.2 10*3/uL Normal 0.0-0.4 [facility] Comment on above: Performed By: #### H A1C, CMP, 70083-6, 35705-8, TSHR, CBCA #### [facility] ([id number]) [address], [address] [place] [address] Eosinophils/100 WBC (Bld) 4.8 % Normal [facility] Comment on above: Performed By: #### H A1C, CMP, 98611-6, 60723-9, TSHR, CBCA #### [facility] ([id number]) [address] [address] [place] [address] Erythrocyte distribution width (RBC) [Ratio] 14.3 % Normal 11.5-15.0 [facility] Comment on above: Performed By: #### H A1C, CMP, 88008-5, , TSHR, CBCA #### [facility] ([id number]) [address] [address] [place] [address] Hematocrit (Bld) [Volume fraction] 34.8 % Low 35-47 [facility] Comment on above: Performed By: #### H A1C, [facility], 31341-0, , TSHR, CBCA #### [facility] ([id number]) [address] [address] [place] [address] Hemoglobin (Bld) [Mass/Vol] 11.3 g/dL Low 11.7-15.5 [facility] Comment on above: Performed By: #### H A1C, [facility], , , TSHR, CBCA #### [facility] ([id number]) [address] [address] [place] [address] Lymphocytes (Bld) [#/Vol] 0.9 10*3/uL Low 1.0-3.5 [facility] Comment on above: Performed By: #### H A1C, CMP, 62017-1, , TSHR, CBCA #### [facility] ([id number]) [address] [address] [place] [address] Lymphocytes/100 WBC (Bld) 24.5 % Normal [facility] Comment on above: Performed By: #### H A1C, CMP, 34306-6, , TSHR, CBCA #### [facility] ([id number]) [address] [address] [place] [address] MCH (RBC) [Entitic mass] 29.7 pg Normal 27-34 [facility] Comment on above: Performed By: #### H A1C, CMP, 17745-7, 42107-8, TSHR, CBCA #### [facility] ([id number]) [address], [address] [place] [address] MCHC (RBC) [Mass/Vol] 32.6 g/dL Normal 32-36 [facility] Comment on above: Performed By: #### H A1C, CMP, 14503-9, 98862-3, TSHR, CBCA #### [facility] ([id number]) [address], [facility] [address] [place] [address] MCV (RBC) [Entitic vol] 91 fL Normal 80-100 [facility] Comment on above: Performed By: #### H A1C, CMP, 28800-6, 50629-3, TSHR, CBCA #### [facility] ([id number]) [address] [place] [address] Monocytes (Bld) [#/Vol] 0.3 10*3/uL Normal 0-0.9 [facility] Comment on above: Performed By: #### H A1C, CMP, 42165-3, 96046-8, TSHR, CBCA #### [facility] ([id number]) [address], [facility] [address] [place] [address] Monocytes/100 WBC (Bld) 7.2 % Normal [facility] Comment on above: Performed By: #### H A1C, CMP, 44988-5, 17852-9, TSHR, CBCA #### [facility] ([id number]) [address], [facility] [address] [place] [address] Neutrophils/100 WBC (Bld) 63.0 % Normal [facility] Comment on above: Performed By: #### H A1C, CMP, 05480-2, 66568-3, TSHR, CBCA #### [facility] ([id number]) [address], [address] [place] [address] Platelet mean volume (Bld) [Entitic vol] 8.7 fL Normal 7-12 [facility] Comment on above: Performed By: #### H A1C, CMP, 38762-6, 24131-0, TSHR, CBCA #### [facility] ([id number]) [address], [address] [place] [address] Platelets (Bld) [#/Vol] 217 10*3/uL Normal 150-450 [facility] Comment on above: Performed By: #### H A1C, CMP, 42345-0, 71620-1, TSHR, CBCA #### [facility] ([id number]) [address] [place] [address] RBC COUNT 3.82 X10E12/L Normal 3.80-5.20 [facility] Comment on above: Performed By: #### H A1C, CMP, 96762-9, , TSHR, CBCA #### [facility] ([id number]) [address], [facility] [address] [place] [address] WBC (Bld) [#/Vol] 3.8 10*3/uL Low 4.0-11.0 [facility] Comment on above: Performed By: #### H A1C, CMP, 82607-9, 91077-9, TSHR, CBCA #### [facility] ([id number]) [address], [address] [place] [address] COMPREHENSIVE METABOLIC PANE Viktor 02-11-2024 Albumin [Mass/Vol] 3.8 g/dL Normal 3.2-5.3 [facility] Comment on above: Performed By: #### H A1C, CMP, 06694-6, 90913-6, TSHR, CBCA #### [facility] ([id number]) [address], [address] [place] [address] ALP [Catalytic activity/Vol] 63 U/L Normal 39-130 [facility] Comment on above: Performed By: #### H A1C, CMP, 77816-9, 76195-3, TSHR, CBCA #### [facility] ([id number]) [address], [address] [place] [address] ALT [Catalytic activity/Vol] 13 U/L Normal 0-31 [facility] Comment on above: Performed By: #### H A1C, CMP, 42966-4, 09235-2, TSHR, CBCA #### [facility] ([id number]) [address], [address] [place] [address] Anion gap [Moles/Vol] 8 mmol/L Normal 5-15 [facility] Comment on above: Performed By: #### H A1C, CMP, 53959-3, 48879-8, TSHR, CBCA #### [facility] ([id number]) [address], [address] [place] [address] AST [Catalytic activity/Vol] 14 U/L Normal 0-41 [facility] Comment on above: Performed By: #### H A1C, CMP, 04261-8, 96588-8, TSHR, CBCA #### [facility] ([id number]) [address], [address] [place] [address] Bilirubin [Mass/Vol] 0.2 mg/dL Low 0.3-1.2 [facility] Comment on above: Performed By: #### H A1C, CMP, 53272-8, 03969-2, TSHR, CBCA #### [facility] ([id number]) [address], [address] [place] [address] Calcium [Mass/Vol] 9.2 mg/dL Normal 8.5-10.5 [facility] Comment on above: Performed By: #### H A1C, CMP, 13049-4, 18628-8, TSHR, CBCA #### [facility] ([id number]) [address], [address] [place] [address] Chloride [Moles/Vol] 102 mmol/L Normal 98-109 [facility] Comment on above: Performed By: #### H A1C, CMP, 22936-7, 74661-5, TSHR, CBCA #### [facility] ([id number]) [address], [address] [place] [address] CO2 [Moles/Vol] 28 mmol/L Normal 22-32 [facility] Comment on above: Performed By: #### H A1C, CMP, 74170-8, 49151-6, TSHR, CBCA #### [facility] ([id number]) [address], [address] [place] [address] Creatinine [Mass/Vol] 0.91 mg/dL Normal 0.40-1.00 [facility] Comment on above: Result Comment: METH OD TRACEABLE TO IDMS STANDARD Performed By: #### H A1C, CMP, 88656-5, , TSHR, CBCA #### [facility] ([id number]) [address], [address] [place] [address] GFR/1.73 sq M.predicted among non-blacks MDRD (S/P/Bld) [Vol rate/Area] 70 mL/min/{1.73_m2} Normal >59 [facility] Comment on above: Result Comment: Reported eGFR is based on the CKD-EPI 2020 equation that does not use a race coefficient. Performed By: #### H A1C, CMP, 19803-0, 59448-2, TSHR, CBCA #### [facility] ([id number]) [address], [address] [place] [address] Glucose [Mass/Vol] 89 mg/dL Normal 65-99 [facility] Comment on above: Performed By: #### H A1C, CMP, 59475-3, 35140-3, TSHR, CBCA #### [facility] ([id number]) [address], [address] [place] [address] Potassium [Moles/Vol] 4.7 mmol/L Normal 3.5-5.0 [facility] Comment on above: Performed By: #### H A1C, [facility], 33590-0, 97311-0, TSHR, CBCA #### [facility] ([id number]) [address] [place] [address] Protein [Mass/Vol] 6.7 g/dL Normal 6.0-8.0 [facility] Comment on above: Performed By: #### H A1C, [facility], 49204-2, 45955-0, TSHR, CBCA #### [facility] ([id number]) [address], [address] [place] [address] Sodium [Moles/Vol] 138 mmol/L Normal 134-146 [facility] Comment on above: Performed By: #### H A1C, [facility], 56478-7, , TSHR, CBCA #### [facility] ([id number]) [address], [address] [place] [address] Urea nitrogen [Mass/Vol] 15 mg/dL Normal 5-27 [facility] Comment on above: Performed By: #### H A1C, [facility], 01558-3, 66170-7, TSHR, CBCA #### [facility] ([id number]) [address], [address] [place] [address] HGB A1C (GLYCO-HGB)on 2023 Glucose [Mass/Vol] 154 mg/dL Normal [facility] Comment on above: Performed By: #### H A1C, CMP, 43592-7, 43444-3, TSHR, CBCA #### [facility] ([id number]) [address], [address] [place] [address] HbA1c (Bld) [Mass fraction] 7.0 % High 4.4-5.6 [facility] Comment on above: Result Comment: NOTE ADA Guidelines Result HgbA1c Normal : less than 5.7 % Prediabetes : 5.7 % to 6.4 % Diabetes : > 6.4 % Use with caution in patients with abnormal hemoglobin variants as the half-life of red blood cells and in vivo glycation rates are affected. Performed By: #### H A1C, CMP, 84048-8, 23854-9, TSHR, CBCA #### [facility] ([id number]) [address] [facility], [address] [place] [address] Lipid 1996 panelon 4 Cholesterol [Mass/Vol] 246 mg/dL High 150-200 [facility] Comment on above: Performed By: #### H A1C, CMP, 60908-8, 96569-3, TSHR, CBCA #### [facility] ([id number]) [address], [address] [place] [address] Cholesterol in HDL [Mass/Vol] 50 mg/dL Normal >39 [facility] Comment on above: Result Comment: HDL <40 mg/dL - High Risk HDL > or = 40mg/dL- Desirable HDL >60 mg/dL - Negative Risk Performed By: #### H A1C, CMP, 16620-5, 48264-0, TSHR, CBCA #### [facility] ([id number]) [address], [address] [place] [address] Cholesterol in LDL [Mass/Vol] 168 mg/dL High <130 [facility] Comment on above: Result Comment: LDL <100 mg/dL - Desirable LDL >160 mg/dL - High Risk Performed By: #### H A1C, CMP, 30341-8, 76341-2, TSHR, CBCA #### [facility] ([id number]) [address], [address] [place] [address] Cholesterol in VLDL [Mass/Vol] 28 mg/dL Normal 0-30 [facility] Comment on above: Performed By: #### H A1C, CMP, 48835-6, 01972-7, TSHR, CBCA #### [facility] ([id number]) [address], [address] [place] [address] CHOLESTEROL:HDL 4.9 Normal 1.0-5.0 [facility] Comment on above: Performed By: #### H A1C, CMP, 74115-0, 32000-2, TSHR, CBCA #### [facility] ([id number]) [address], [address] [place] [address] Triglyceride [Mass/Vol] 138 mg/dL Normal 27-150 [facility] Comment on above: Performed By: #### H A1C, CMP, 29065-6, 22505-4, TSHR, CBCA #### [facility] ([id number]) [address], [address] [place] [address] MAGNESIUMon 02-11-2024 Magnesium [Mass/Vol] 1.7 mg/dL Low 1.8-2.6 [facility] Comment on above: Performed By: #### H A1C, CMP, 91909-3, 03565-0, TSHR, CBCA #### [facility] ([id number]) [address], [address] [place] [address] TSH WITH REFLEXon 02-11-2024 TSH 2.39 uIU/mL Normal 0.49-4.67 [facility] Comment on above: Performed By: #### H A1C, CMP, 83538-0, 23405-1, TSHR, CBCA #### [facility] ([id number]) [address] [facility] [place] [address] Benzodiazepines Screen Ql (U )on 07-03-2023 Benzodiazepines Ql (U) Negative Negative^Neg ative [facility] Comment on above: Benzodiazepines scre ening cut off value = 200 ng/mL This report is intended for use in clinical monitoring or management of patients. [facility] COVID/FLU/RSV RT-PCRon 06-07 SARS-CoV-2 (COVID-19) RNA GILMER+probe Ql (Unsp spec) Negative [facility] Other COVID/FLU/RSV RT-PCR Negative [facility] Other XR Spine Cervical Complete w /Flex AND [place] 11-22-2021 XR Spine Cervical Complete w/Flex AND Ext HISTORY: FINDINGS: Cervical vertebral bodies are preserved in height. Severe disc space loss with minimal posterior and mild to moderate anterior osteophyte formation C5-6, C6-7. Diffuse facet arthropathy, severe neuroforaminal stenosis left C3-4, C4-5. No fracture or focal soft tissue swelling is seen. Prevertebral soft tissues are normal. Flexion and extension: C1-2 - C2-3: Normal alignment, no change C3-4: 2 mm anterolisthesis, no change C4-5: 2-3 mm anterolisthesis, no change C5-6: Normal alignment, no change C6-7: 2 mm retrolisthesis, no change C7-T1: 2-3 mm anterolisthesis, no change IMPRESSION: 1. Diffuse arthritis, severe left cervical neuroforaminal stenosis 2. Multilevel spondylolisthesis, minimal motion with flexion and extension Report reported and signed by Matt Aguirre on 11/23/2021 0703 Normal [facility] Announcer Coding Summary.on 09-15-2021 Coding Summary. [id number] Gh0 bWw+PGhlYWQ+LO0YLYDpC38 xwRCbaD6LU4yLLS0DFHRQJD NSOD0GRL0ymWN9MHwhU0Dlw iAv JeruhNPuMS98YIe9ESM9oQl kSKzklP8eyJWzT3l3GhLnOO 45qT76LTcnJJXvVpM7DoSvj jsgbWFy C5bpXmUpaHInOeq+PHRhYmx lIHdpZHRoPScxMDAlJyBzdH vwPY5gLq4zRGEjBLWapZlvp HNlOiBj x9ykIGLoFGsgNE1dbFslG5H foSS6YEOgz6u6Lj45fXA+PH OjQRE7eBcjZGwxq514QzTse 0wlPRN9 kZMrBXumVEI4R96jj6P3VBN eYVArRGU8lAS5rI3laLixof fcB1WjiLGxMlH6IEY4vNZla W4jxBco umcqtO2jRsj+I28WDI4TJUS ELZ8DRcs2Q0FmTqittTD+PC 22LGRpGZ28vGUdgRVie8hwh Mt1YsYo PGImOTG5sNczGJdtz1HpAJF kS22siYBeh1Q2LDLvkRheqS IhJvLixTM1qQ1sBZoktuwoy 2hvdzsn Sxasw0zrdh11kW24V53iYPg pFEUiLWF9CSRbUZGbySmioc 9loE2jXg3+HKrzd5mxa8vgi Vq5MmNw FFEmukCopFyyWBP4x7GvIs2 3R2BjmEjll3KjJjp1xc95oF Ixg5W2xAJ8WVcdWCKghB4gG WxlZnQ6 QPRoYeWoxD88zGNnWKjjGf1 vnCkxbSrpQG9zRASkjbbjJL KneV8gAVTctBUofQbhXH2eB TBpbjtm p972MuOnFXL0TFFkmLOtS9G klW0gNjBoKXNhIKOiL0KdlB RiFRgsN174RTdeDoG7ZWJtb iRaO7Aa EDLvzLvhQuQ0b8E3Ox6Oc4B qmbjeDLA6QKfbLPJ1FwI0Iv XeYsL0Z8PgPfj4VXYpyQbgZ P8qB4Jz AHUysmbddxeujFZ7EJSpOMH ncN09aIEbSKyzBe6br3Y5y6 22JFRnQJBudX20Ah3glMejG TBwdCBU jJ0aiwape8wbuvfeYnImQAS sCNf1HLz9IPPwvRqqSaEdKQ H9OyB1WXS3nIFexR1yqKtky vukcJ9k Oyc+O78sgJ2nKRA4CQA3gcy mIVBlneDxCJ42OC84E5WwTm wvdGFibGU+PGRpdiBzdHlsZ J0uAdQr j5qqs7AuEJavE5WlAFMhZDx mTxx6QXCtWIC8iRK5jW0xWK OmLRzik0O0rCG6O1XivvUuw t8vn6dx MKVgBSflP21znZOyk9M6ETZ odKL0IEFwnKydLxDelM17Hn c+SMOkhHumq4ZoCbjrb5hpq 0ndsIy0 SxJuQZUtxfDjnNbpOPI1h7O qEm86P06qXYmyOLLxWHYbNB HtLOSkmIxoym4cvW4rTx6+P GNvbCB3 bGT4bJ0eAEJjWbZ9WKoaD21 6VkJkvBGtLskzn2kio5rqrB a3FwNzKMCaibWsbSfwIEP5g 5DvGp23 V40iGZkiLOCnKOUwJSZrRKA esNvyol8vaE9gSn4+PC9jb2 ozke56cS74gYW+JSItXYV4y WxlPSdw ZYRavH3bVEplFfC3MAPzSlD krD86oWGuFKimDj2thUcxdU hbMP8yNPWgucqch022TvYsr 2xkIDEw gWBxOYbkZBB3I57ph5A7HLX oFZLdLTJ8eEM7uO6lyMowfe ogbGVmdDsgdmVydGljYWwtY WslZ919 IHRvcDsnPlBhdGllbnQgTmF yROs9F0XfTup1DZUgfAncUY 7gvGQmUWidPb7ynKtqiQvjI B1wZFSt bwbsv268AzAkw3edJCCkzHI kSRyuXDI2B55bq9L3FIHbJC UiCXC0dQO6aI7wvKnriooif GVmdDsg xrKteUjxVZvzHFqpL203CIS wgSekCzPyokTwCVRmuFR1WV 68OF27hEJlo3F2wMM9S7LpP GRpbmct scbmaVD7KLRtBMWgmO71As8 obQjfFu5eTQWgUYW0UXLjaG RwX2NkwK4fLiZySVZqQWEuS 3RleHQt WIwgR754TFppShF2TXEkqsI dL2CmSYFqvWptKbZ3a2F0Ew 0LT3F2VL35UX23aBQcg2F9q RT2T3Ld CVFowceousalxRY3JOSmXOR ugL60Lz9vyIwwYs3yZYFzWD M7PFVkiQCdQ3SrdZ2iVhLfD DAwMDAw R4DjkFNxBCzhA495NIuiNbV 5UKYmwkJgE6XgKCPnqGpoQc I7c1P3It0NQVb2AQ48OR15x HKcv4I3 zMH0H9CaLINqjpjtjngfeCK 5FZWhOBLfcB12Ha4yfRjhWu 1lVLFaLPU0KLUgcIRqB1Qib X9pVnPc GSUxJAQzH6RjeQOmIPgqJ29 4VCocWaP9VQKvmzDcF2NmBG JvpQonXiH4n5M6Em4HJKEmZ N57MZL1 jSM1OH44BG94K1NaRppmeUQ ibGU+PHRhYmxlIHdpZHRoPS fiXRLvMhPrnAzjRY3cTf6iQ GVyLWNv aRdnyIEcCyAde4zoENAyXMq tOA2bsQnrH5QfiSM8BCTvw7 j9Ik84V78wD9FwdBL+PGNvb VM1pXJ9 rU6qCpPhTpZ2GRvcN829OqQ zdWJyGwvdd6ydg2asePt8Ha O6SVSfvtRmtOozKCX6z6WnR o03Y24e IHdpZHRoPSIxNSUiIHZhbGl thu6pdA5hVg8+QSXjlUM9oZ Y9dG6sPfIwRoI1AJwoY983O nRvcCIv Vvdhx8iyp2dukBr9NhKlKJN gqpDdeWwcAEC5i3GhPi53M7 LplSxdc7KzQfp9fk96rJKud 8M1nND8 I5SuOHNekekokQZmtZejLN9 bNYSpxkecGTWvaL2uBZMpG6 w1HaOoXgK3DKhsN8WqvoM1T DEwcHQg DVhaLPI6C10zr2D6FKImPUA oMGH8cHN4lB6kkElzttjxdV VmdDsgdmVydGljYWwtYWxpZ 246IHRv kFrrUQBiuW0iITZbqQYfxYl fUH2mXGSmdvlyOkEDSLSKTo vlFZUICtq0E2SeRtp0MFEft ClhKC4c kPPpUGetTa3ysCrjpDmwRC7 kGKCopalfZELffD8zIPBzkB UyeYqoGT5cYLRrngtgz206F iAxMHB0 BTLelFQnT3BagB4iJtJfKMP hCHMzD2YkiGFdHZuxE210KM siUmR5SZJhhePvT2QtXILvo WduOiB0 d8N6Lu8wFP2yEu3gHXVcXG7 6SO19eBYgw4S6vJJ0P0LhNV WuaobrdfsxiKD7WWNkFIKyc K71kHBj UPdzWb6aq3P6a175GPFsJMS hpI00Tg0thYeoBPAupZUBdL 2sxywpy8csfzqlUoVxKWJaE Sx2CAq3 BMVllIzoMdWqPGX5TjK8WZY 6vIGsmD0buJewxtuceK6pKq c+JiWgRSMulyD7P8ElPzv4L CBzdHls TM3tmQNwCDneVf5ywGlssHv nVK4vFVAafihmNCUpyT2pTG TmgVSulSnrFV3rDSHcxmuny 250OiAx QXN3QWOatIReM9CmcQ6mPsX fNPCqYIHrS3CxrPZkBZtgB4 09OYjwDuI0ZHZpxsJzX1KpM WFsaWdu ZkF4d3K6Qh3REB4udAC2Z4T tMgu9FQXdaTauQF2ggEBgTL fpMf9dgZkdwRxtIW7mMELrk jtwYWRk aY5iHAHvrBBcwAgjCK9mONK nkltyt618MiFwRPU4JCFjhS MzY9RqqP9dEcEuDKZvILWpL 3RleHQt MDzjO232JRzuJoY7KWRgfnC oJ7BnVDHyrHgmLcA3l8D9Bs 3SuGXbDAAzRY71SG58AV69D 3RyPjwv dGFibGU+PHRhYmxlIHdpZHR dOHwmUYXuUqSdwDcdEN7dXf 9yZGVyLWNvbGxhcHNlOiBjb 2xsYXBz BXsqUX6gfWhcS2IgjTI6CSN zx1o1En33F24kO3UvmQP+PG MlyVF8eSK5dR6oEeZaEkK1A MyyC113 LoAhaWCgXksgh1efz2uvuKt 4OlSaGIXwmcZflOscCKE0c2 QdPr98I81iPUzpQIPdTEPjK CUiIHZh pEvygz0ttC8oLf6+PGNvbCB 2yMX2iK5kEbLsSpS1EKvaA6 93PuPrgCEjLknrZ57dH4Ole XA+PHRy Guh7IQMylFvaQH6oeIQzLVm mKn6nMHV2EkDkXdHnIManU6 BaBZKkeqimfcarvCW5WEMdL DUwaW47 Pw1bgIazLz4gVLMuMKY6SSF geYCyJ2ZqdG2lGvUaWRCzEE NmO6BixEIzAKyjV698LPisN mX8UQBg bhBmI8AmVSJssQdkVzI3r4C 8Qd3RxHcslRUoPB8jIlMaLW v6Z1LmFdb8SDEhwPmdEL0qx GFkZGlu Jw2lzVjqlDwsER8oHGLlfet zc283KcSkf2rxTDPbnBFiNH fgMYT7K56hz9Q3MNHbJXJoM EX3yEN3 gP0xzTeqfgnhrSMkaIofzlF fnAmiHNoaDZvsQ279ZJNmfX nnOiYWUdw6N1JuGuj2HMMup ErhLD1q oRTaAEwvWu9wyWkikBksMH3 bNLQqiwoxf717GmXxn2jqUQ CdaTVnJHhmCVP1X02og1R1P CMwMDAw RTZ7zQC9aJ6znKinzdrfyEN mdDsgdmVydGljYWwtYWxpZ2 03TMNvpWmaQt8PGdf1X0WfU rf5YFDs kMbnAA2mlQCwXCkwKl2nvFa qhPagDD5mEQMgnmlie269Rp Ujg4esJYWfzWAuQDgyZQK4H 49wp0K8 GNNeNEBrZAH9uFY5xZ5ekMa nbjogbGVmdDsgdmVydGljYW qhEOadV576DBXycGxlGtRsm WVyOjwv dGQ+LV82og22D2NdDwqhJzq 4XIVyJJQ9vBG8dR1xYQCjUX goc7T3wWS5T5SrtfPlgb4in 2xsYXBz ZTog (more content not included)... Normal [facility] Consent for Treatmenton Consent for Treatment [id number]#1.00C D:127 Normal [facility] Lipid Panelon 09-05-2021 Cholesterol [Mass/Vol] 263 mg/dL High 120-200 [facility] Comment on above: Performed By: #### 2 [id number] #### [facility] [address] [place] [address] Cholesterol in HDL [Mass/Vol] 49 mg/dL Invalid Interpretation Code [facility] Comment on above: Result Comment: HDL > or equal to 60 mg/dL: Low cardiovascular risk HDL < 40 mg/dL : High cardiovascular risk Performed By: #### 2 [id number] #### [facility] [address] [place] [address] Cholesterol in LDL [Mass/Vol] 212 mg/dL High <=129 [facility] Comment on above: Performed By: #### 2 [id number] #### [facility] [address] [place] [address] Cholesterol in VLDL [Mass/Vol] 18 mg/dL Normal 7-40 [facility] Comment on above: Performed By: #### 2 [id number] #### [facility] [address] [place] [address] Triglyceride [Mass/Vol] 88 mg/dL Normal <=149 [facility] Comment on above: Performed By: #### 2 [id number] #### [facility] [address] [place] [address] Physician Orderon 09-05-2021 Physician Order [id number] D:127 Normal [facility] Physician Order [id number]#1.00C D:127 Normal [facility] XR Chest 2 Viewson XR Chest 2 Views Exam Date/Time: 09/05/2021 10:56 EDT Reason for Exam: R07.9 chest pain, unspecified type Report IMPRESSION: THERE ARE NO FOCAL INFILTRATES OR EFFUSIONS. CLINICAL HISTORY: R07.9 chest pain, unspecified type COMPARISON: NONE. FINDINGS: The cardiomediastinal silhouette is unremarkable. The lungs are free of infiltrates effusions or consolidations. The bones and soft tissues are within normal limits. FINAL REPORT Dictated: 09/05/2021 5:02 pm Jose Antonio Naik MD, V. Signed (Electronic Signature): 09/05/2021 5:02 pm Signed by: Jose Antonio Naik MD, V. Transcribed by: ED Technologist: LORENA [facility] Vital Signs Date Time Vital Sign Value Performing Clinician Facility 01-01-2025 09:32-0400 Body height 175.3 cm Rafaela HOU Work Phone: [facility] 01-01-2025 09:32-0400 Body mass index (BMI) [Ratio] 23.63 kg/m2 Rafaela Cash PA Work Phone: [facility] 01-01-2025 09:32-0400 Body weight 72.58 kg Rafaela Cash PA Work Phone: [facility] 01-01-2025 09:32-0400 Diastolic blood pressure 63 mm[Hg] Rafaela Cash PA Work Phone: [facility] 01-01-2025 09:32-0400 Heart rate 96 /min Rafaela Cash PA Work Phone: [facility] 01-01-2025 09:32-0400 Respiratory rate 18 /min Rafaela Cash PA Work Phone: [facility] 01-01-2025 09:32-0400 SaO2% (BldA) [Mass fraction] 99 % Rafaela Cash PA Work Phone: [facility] 01-01-2025 09:32-0400 Systolic blood pressure 115 mm[Hg] Rafaela Cash PA Work Phone: [facility] 12-01-2024 13:18-0400 Body mass index (BMI) [Ratio] 24.71 kg/m2 Eugenio Ellis MD Work Phone: [facility] 12-01-2024 13:18-0400 Body weight 75.9 kg Eugenio Ellis MD Work Phone: [facility] 12-01-2024 13:18-0400 Diastolic blood pressure 88 mm[Hg] Eugenio Ellis MD Work Phone: [facility] 12-01-2024 13:18-0400 Heart rate 94 /min Eugenio Ellis MD Work Phone: [facility] 12-01-2024 13:18-0400 Systolic blood pressure 143 mm[Hg] Eugenio Ellis MD Work Phone: [facility] 11-25-2024 12:42-0400 Diastolic blood pressure 81 mm[Hg] Rafaela Cash PA Work Phone: [facility] 11-25-2024 12:42-0400 Heart rate 100 /min Rafaela Cash PA Work Phone: [facility] [employer] [facility] 11-25-2024 12:42-0400 Respiratory rate 18 /min Rafaela Cash PA Work Phone: [facility] 11-25-2024 12:42-0400 SaO2% (BldA) [Mass fraction] 98 % Rafaela Cash PA Work Phone: [facility] 11-25-2024 12:42-0400 Systolic blood pressure 133 mm[Hg] Rafaela Cash PA Work Phone: [facility] 10-30-2024 22:57-0400 Body height 175.3 cm Shanna Johnson MD Work Phone: [facility] 10-30-2024 22:57-0400 Body mass index (BMI) [Ratio] 26.29 kg/m2 Shanna Johnson MD Work Phone: [facility] 10-30-2024 22:57-0400 Body weight 80.74 kg Shanna Johnson MD Work Phone: [facility] 10-30-2024 22:57-0400 Diastolic blood pressure 80 mm[Hg] Shanna Johnson MD Work Phone: [facility] 10-30-2024 22:57-0400 Systolic blood pressure 120 mm[Hg] Shanna Johnson MD Work Phone: [facility] 09-23-2024 09:37-0400 Diastolic blood pressure 64 mm[Hg] Rafaela HOU Work Phone: [facility] 09-23-2024 09:37-0400 Heart rate 100 /min Rafaela Cash PA Work Phone: [facility] 09-23-2024 09:37-0400 Respiratory rate 20 /min Rafaela Cash PA Work Phone: [facility] 09-23-2024 09:37-0400 Systolic blood pressure 118 mm[Hg] Rafaela HOU Work Phone: [facility] 09-11-2024 10:48-0400 Body height 175.3 cm Parish Dean LOAD MANAGER-VETERINARY ASSISTANT Work Phone: [facility] 09-11-2024 10:48-0400 Body mass index (BMI) [Ratio] 25.06 kg/m2 Parish Dean LOAD MANAGER-VETERINARY ASSISTANT Work Phone: [facility] 09-11-2024 10:48-0400 Body temperature 98.49 [degF] Parish Dean LOAD MANAGER-VETERINARY ASSISTANT Work Phone: [facility] 09-11-2024 10:48-0400 Body weight 77.02 kg Parish Dean LOAD MANAGER-VETERINARY ASSISTANT Work Phone: [facility] 09-11-2024 10:48-0400 Diastolic blood pressure 86 mm[Hg] Parish Dean LOAD MANAGER-VETERINARY ASSISTANT Work Phone: [facility] 09-11-2024 10:48-0400 Heart rate 62 /min Parish Dean LOAD MANAGER-VETERINARY ASSISTANT Work Phone: [facility] [employer] [facility] 09-11-2024 10:48-0400 SaO2% (BldA) [Mass fraction] 96 % Parish Dean LOAD MANAGER-VETERINARY ASSISTANT Work Phone: [facility] [employer] [facility] 09-11-2024 10:48-0400 Systolic blood pressure 144 mm[Hg] Parish Dean LOAD MANAGER-VETERINARY ASSISTANT Work Phone: [facility] [employer] [facility] 08-21-2024 09:58-0400 Body height 175.3 cm Rafaela Cash PA Work Phone: [facility] [employer] [facility] 08-21-2024 09:58-0400 Body mass index (BMI) [Ratio] 25.55 kg/m2 Rafaela Cash PA Work Phone: [facility] [employer] [facility] 08-21-2024 09:58-0400 Body weight 78.47 kg Rafael[facility] Nienberg [facility] 08-21-2024 09:58-0400 Diastolic blood pressure 94 mm[Hg] Rafaela Cash PA Work Phone: [facility] [employer] [facility] 08-21-2024 09:58-0400 Heart rate 98 /min Rafaela Nienberg PA [facility] 08-21-2024 09:58-0400 Respiratory rate 18 /min Rafaela Nienberg PA Work Phone: [facility] [employer] [facility] 08-21-2024 09:58-0400 SaO2% (BldA) [Mass fraction] 97 % Rafaela Cash PA [facility] 08-21-2024 09:58-0400 Systolic blood pressure 145 mm[Hg] Rafaela Chadwickenberg PA Work [facility] 06-26-2024 09:22-0500 Body height 175.3 cm Rafaela Cash PA [facility] 06-26-2024 09:22-0500 Body mass index (BMI) [Ratio] 25.84 kg/m2 Rafaela Cash PA Work Phone: [facility] [employer] [facility] 06-26-2024 09:22-0500 Body weight 79.38 kg Rafaela Cash PA [facility] 06-26-2024 09:22-0500 Diastolic blood pressure 88 mm[Hg] Rafaela Cash PA [facility] 06-26-2024 09:22-0500 Heart rate 100 /min Rafaela Cash PA Work Phone: [facility] [employer] [facility] 06-26-2024 09:22-0500 Respiratory rate 18 /min Rafaela Chadwickenberg PA [facility] 06-26-2024 09:22-0500 SaO2% (BldA) [Mass fraction] 96 % Rafaela Cash PA [facility] 06-26-2024 09:22-0500 Systolic blood pressure 176 mm[Hg] Rafaela Cash PA Work Phone: [facility] [employer] [facility] 05-08-2024 08:31-0500 Diastolic blood pressure 104 mm[Hg] Rafaela Csah PA Work Phone: [facility] [employer] [facility] Comment on above: advised pt to schedule with pcp and info rm them of high BP. Pt states they made changes to her meds, explained to her the risks of high BP and importance of following up on that. Pt stated understaning. 05-08-2024 08:31-0500 Heart rate 100 /min Rafaela Chadwickcarol PA Work [facility] 05-08-2024 08:31-0500 Respiratory rate 18 /min Rafaela Chadwickenberg PA Work Phone: [facility] [employer] [facility] 05-08-2024 08:31-0500 SaO2% (BldA) [Mass fraction] 99 % Rafaela Cash PA Work Phone: [facility] [employer] [facility] 05-08-2024 08:31-0500 Systolic blood pressure 179 mm[Hg] Rafaela Cash PA Work Phone: [facility] Comment on above: advised pt to schedule with pcp and info rm them of high BP. Pt states they made changes to her meds, explained to her the risks of high BP and importance of following up on that. Pt stated understaning. 03-20-2024 13:49-0400 Body height 175.3 cm Rafaela HOU Work Phone: [facility] [employer] [facility] 03-20-2024 13:49-0400 Body mass index (BMI) [Ratio] 24.81 kg/m2 Rafaela Cash PA Work Phone: [facility] 03-20-2024 13:49-0400 Body weight 76.2 kg Rafaela HOU Work Phone: [facility] 03-20-2024 13:49-0400 Diastolic blood pressure 55 mm[Hg] Rafaela Cash PA Work Phone: [facility] 03-20-2024 13:49-0400 Heart rate 100 /min Rafaela Cash PA Work Phone: [facility] 03-20-2024 13:49-0400 Respiratory rate 18 /min Rafaela Cash PA Work Phone: [facility] 03-20-2024 13:49-0400 SaO2% (BldA) [Mass fraction] 95 % Rafaela Cash PA Work Phone: [facility] 03-20-2024 13:49-0400 Systolic blood pressure 115 mm[Hg] Rafaela Cash PA Work Phone: [facility] 03-13-2024 11:01-0400 Body height 175.3 cm Parish VELEZ Work Phone: [facility] 03-13-2024 11:01-0400 Body mass index (BMI) [Ratio] 24.81 kg/m2 Parish Dean LOAD MANAGER-VETERINARY ASSISTANT Work Phone: [facility] [employer] [facility] 03-13-2024 11:01-0400 Body temperature 97.9 [degF] Parish Dean LOAD MANAGER-VETERINARY ASSISTANT Work Phone: [facility] 03-13-2024 11:01-0400 Body weight 76.2 kg Parish Dean LOAD MANAGER-VETERINARY ASSISTANT Work Phone: [facility] 03-13-2024 11:01-0400 Diastolic blood pressure 74 mm[Hg] Parish Dean LOAD MANAGER-VETERINARY ASSISTANT Work Phone: [facility] 03-13-2024 11:01-0400 Heart rate 77 /min Parish Dean APRN-VETERINARY ASSISTANT Work Phone: [facility] 03-13-2024 11:01-0400 SaO2% (BldA) [Mass fraction] 94 % Parish Dean APRN-VETERINARY ASSISTANT Work Phone: [facility] 03-13-2024 11:01-0400 Systolic blood pressure 110 mm[Hg] Parish Dean APRN-VETERINARY ASSISTANT Work Phone: [facility] 02-12-2024 14:14-0400 Diastolic blood pressure 92 mm[Hg] Rafaela HOU Work Phone: [facility] 02-12-2024 14:14-0400 Heart rate 110 /min Rafaela HOU Work Phone: [facility] [employer] [facility] 02-12-2024 14:14-0400 Respiratory rate 20 /min Rafaela HOU Work Phone: [facility] 02-12-2024 14:14-0400 Systolic blood pressure 140 mm[Hg] Rafaela HOU Work Phone: [facility] 01-17-2024 12:31-0400 Body mass index (BMI) [Ratio] 25.99 kg/m2 Eugenio Ellis MD Work Phone: [facility] 01-17-2024 12:31-0400 Body weight 79.83 kg Eugenio Ellis MD Work Phone: [facility] 01-17-2024 12:31-0400 Diastolic blood pressure 93 mm[Hg] Eugenio Ellis MD Work Phone: [facility] 01-17-2024 12:31-0400 Heart rate 76 /min Eugenio Ellis MD Work Phone: [facility] 01-17-2024 12:31-0400 Systolic blood pressure 144 mm[Hg] Eugenio Ellis MD Work Phone: [facility] 12-25-2023 13:48-0400 Diastolic blood pressure 68 mm[Hg] Rafaela Cash PA Work Phone: [facility] 12-25-2023 13:48-0400 Heart rate 100 /min Rafaela Nienberg PA Work Phone: [facility] 12-25-2023 13:48-0400 Respiratory rate 20 /min Rafaela Nienberg PA Work Phone: [facility] [employer] [facility] 12-25-2023 13:48-0400 Systolic blood pressure 118 mm[Hg] Rafaela Nienberg PA Work Phone: [facility] [employer] [facility] 11-13-2023 10:25-0400 Body height 175.3 cm Rafaela Nienberg PA Work Phone: [facility] 11-13-2023 10:25-0400 Body mass index (BMI) [Ratio] 23.63 kg/m2 Rafaela Nienberg PA [facility] 11-13-2023 10:25-0400 Body weight 72.58 kg Rafaela Nienberg PA Work Phone: [facility] 11-13-2023 10:25-0400 Diastolic blood pressure 80 mm[Hg] Rafaela Nienberg PA Work Phone: [facility] 11-13-2023 10:25-0400 Heart rate 87 /min Rafaela Nienberg PA Work Phone: [employer] 11-13-2023 10:25-0400 Respiratory rate 18 /min Rafaela Nienberg PA Work Phone: [employer] 11-13-2023 10:25-0400 SaO2% (BldA) [Mass fraction] 99 % Rafaela Nienberg PA Work Phone: [facility] 11-13-2023 10:25-0400 Systolic blood pressure 122 mm[Hg] Rafaela Nienberg PA Work Phone: [employer] 08-02-2023 08:56-0500 Diastolic blood pressure 77 mm[Hg] Rafaela Nienberg PA Work Phone: [employer] 08-02-2023 08:56-0500 Heart rate 96 /min Rafaela Nienberg PA Work Phone: [employer] 08-02-2023 08:56-0500 Respiratory rate 20 /min Rafaela Nienberg PA Work Phone: [facility] 08-02-2023 08:56-0500 Systolic blood pressure 116 mm[Hg] Rafaela Nienberg PA Work Phone: [facility] 06-07-2023 13:30-0500 Body height 175.26 cm Danni Sharp Other [employer] Other 06-07-2023 13:30-0500 Body mass index (BMI) [Ratio] 26.87 kg/m2 Danni Sharp Other [employer] Other 06-07-2023 13:30-0500 Body temperature 97.1 [degF] Danni Sharp Other [employer] Other 06-07-2023 13:30-0500 Body weight 82.56 kg Danni Sharp Other [employer] Other 06-07-2023 13:30-0500 Diastolic blood pressure 80 mm[Hg] Danni Sharp Other [employer] Other 06-07-2023 13:30-0500 Respiratory rate 18 /min Danni Sharp Other [employer] Other 06-07-2023 13:30-0500 SaO2% (BldA) [Mass fraction] 93 % Danni Sharp Other [employer] Other 06-07-2023 13:30-0500 Systolic blood pressure 143 mm[Hg] Danni Sharp Other [employer] Other 05-31-2023 11:04-0500 Body height 175.3 cm Rafaela Chadwickenberg PA Work Phone: [facility] 05-31-2023 11:04-0500 Body mass index (BMI) [Ratio] 25.99 kg/m2 Rafaela Nienberg PA Work Phone: [employer] 05-31-2023 11:04-0500 Body weight 79.83 kg Rafaela Nienberg PA Work Phone: [employer] 05-31-2023 11:04-0500 Diastolic blood pressure 107 mm[Hg] Rafaela Nienberg PA Work Phone: [employer] 05-31-2023 11:04-0500 Heart rate 112 /min Rafaela Nienberg PA Work Phone: [facility] 05-31-2023 11:04-0500 Respiratory rate 18 /min Rafaela Nienberg PA Work Phone: [facility] 05-31-2023 11:04-0500 SaO2% (BldA) [Mass fraction] 98 % Rafaela Chadwickenberg PA Work Phone: [facility] 05-31-2023 11:04-0500 Systolic blood pressure 156 mm[Hg] Rafeala HOU Work Phone: [facility] 08-28-2022 08:23-0400 Body weight 77.11 kg Eugenio Ellis MD Work Phone: [facility] 08-28-2022 08:23-0400 Diastolic blood pressure 80 mm[Hg] Eugenio Ellis MD Work Phone: [facility] 08-28-2022 08:23-0400 Heart rate 98 /min Eugenio Ellis MD Work Phone: [facility] 08-28-2022 08:23-0400 Systolic blood pressure 126 mm[Hg] Eugenio Ellis MD Work Phone: [facility] Encounters Encounter Date Encounter Type Care Provider Facility Start: 01-17-2025 End: 01-17-2025 Emergency department patient visit [facility] Start: 01-15-2025 End: 01-15-2025 [facility] Comment on above: SPP Inflammatory Con ditions - Medication Refill (Enbrel ) Start: 01-14-2025 End: 01-14-2025 Office outpatient visit 25 minutes Shanna Johnson MD Work Phone: [facility] Comment on above: Dysautonomia orthost atic hypotension syndrome (Primary Dx) Start: 01-14-2025 End: 01-14-2025 ambulatory SHANNA JOHNSON Not Available Start: 01-13-2025 End: 01-13-2025 Refill [facility] LOAD MANAGER-VETERINARY ASSISTANT Work Phone: [facility] Start: 01-01-2025 End: 01-01-2025 ambulatory [facility] Start: 01-01-2025 End: 01-01-2025 Office outpatient visit 25 minutes Rafaela HOU Work Phone: [facility] Comment on above: Disorder of sacrum ( Primary Dx); Encounter for long-term opiate analgesic use; Lumbosacral spondylosis without myelopathy Start: 12-19-2024 End: 12-19-2024 Specialty Pharmacy Jed Gaspar [facility] Comment on above: SPP Inflammatory Con ditions - Medication Refill (Enbrel) Start: 12-08-2024 End: 12-08-2024 Refill Parish Dean APRN-VETERINARY ASSISTANT Work Phone: [facility] Start: 12-01-2024 End: 12-01-2024 Patient encounter procedure Eugenio Ellis MD Work Phone: Rheumatology Comment on above: Ankylosing spondylit is of multiple sites in spine (HCC) (Primary Dx); Steroid-induced osteoporosis; Wrist swelling, left; Elbow swelling, left; Cervicalgia; Paresthesia of both hands; Blurry vision, bilateral; Pseudogout involving multiple joints; Secondary osteoarthritis of multiple sites; Chronic bilateral low back pain without sciatica; Chronic sacroiliac joint pain; Long-term use of high-risk medication; 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, multiple sites Start: 12-01-2024 End: 12-01-2024 ambulatory KATIE GARCIA Facility:[facility] Start: 11-26-2024 End: 12-01-2024 Telephone encounter Eugenio Ellis MD Work Phone: Rheumatology Comment on above: Results ([facility]); Orders Start: 11-25-2024 End: 11-25-2024 ambulatory [facility] Start: 11-25-2024 End: 11-25-2024 Office outpatient visit 25 minutes Rafaela HOU Work Phone: [facility] Comment on above: Localized primary os teoarthritis of carpometacarpal (CMC) joint of left wrist (Primary Dx); Lumbosacral spondylosis without myelopathy; Left elbow pain; Encounter for long-term opiate analgesic use Start: 11-25-2024 End: 11-25-2024 ambulatory [facility] Start: 11-21-2024 End: 11-21-2024 Specialty Pharmacy Jed Gaspar [facility] Comment on above: SPP Inflammatory Con ditions - Medication Refill (Enbrel) Start: 11-13-2024 End: 11-14-2024 Refill Eugenio Ellis MD Work Phone: Rheumatology Comment on above: Refill Request Start: 11-11-2024 End: 11-13-2024 Refill Eugenio Ellis MD Work Phone: Rheumatology Comment on above: Refill Request Fall Start: 11-05-2024 End: 11-05-2024 Orders Only Eliana Torres NP Work Phone: [facility] 210 Comment on above: 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; Chronic fatigue syndrome Start: 11-04-2024 End: 11-06-2024 Refill Rani Dominguez [facility] Comment on above: Lumbosacral spondylo sis without myelopathy Start: 10-31-2024 End: 10-31-2024 ambulatory [facility] Start: 10-29-2024 End: 10-29-2024 Bamboo flowsheet Shanna Johnson MD Work Phone: [facility] Start: 10-29-2024 End: 10-29-2024 Bamboo flowsheet Shanna Johnson MD Work Phone: [facility] Start: 10-29-2024 End: 10-29-2024 Office outpatient visit 25 minutes Shanna Johnson MD Work Phone: [facility] Comment on above: 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); Osteoarthritis of left elbow, unspecified osteoarthritis type; Chronic fatigue syndrome Start: 10-29-2024 End: 10-29-2024 ambulatory SHANNA JOHNSON Not Available Start: 10-24-2024 End: 10-24-2024 ambulatory [facility] Start: 10-23-2024 End: 10-23-2024 ambulatory [facility] Start: 10-21-2024 End: 10-21-2024 ambulatory [facility] Start: 10-11-2024 End: 10-14-2024 Refill Eugenio Ellis MD Work Phone: Rheumatology Comment on above: Refill Request Start: 10-03-2024 End: 10-03-2024 [facility] Start: 10-02-2024 End: 10-02-2024 Refill Rani Alberto PEREZ [facility] Comment on above: Lumbosacral spondylo sis without myelopathy Start: 09-23-2024 End: 09-23-2024 Office outpatient visit 25 minutes Rafaela HOU Work Phone: [facility] Comment on above: Localized osteoarthr itis of right shoulder (Primary Dx); Lumbosacral spondylosis without myelopathy; Encounter for long-term opiate analgesic use; Disc displacement, thoracic Start: 09-23-2024 End: 09-24-2024 Refill Eugenio Ellis MD Work Phone: Rheumatology Comment on above: Refill Request Start: 09-15-2024 End: 09-16-2024 Telephone encounter Eugenio Ellis MD Work Phone: Rheumatology Comment on above: Results ([facility]) Start: 09-14-2024 End: 09-15-2024 ambulatory Eugenio Ellis MD Work Phone: Rheumatology Start: 09-14-2024 End: 09-15-2024 Patient encounter procedure Eugenio Ellis MD Work Phone: Rheumatology Comment on above: More info Start: 09-12-2024 End: 09-15-2024 Telephone encounter Eugenio Ellis MD Work Phone: Rheumatology Comment on above: Results ([facility]); Orders Start: 09-11-2024 End: 09-11-2024 Office outpatient visit 15 minutes [facility] LOAD MANAGER-VETERINARY ASSISTANT Work Phone: [facility] Comment on above: Diabetes mellitus du e to underlying condition with hyperosmolarity without coma, without long-term current use of insulin ([facility]) (Primary Dx); Ankylosing spondylitis of multiple sites in spine ([facility] Primary hypertension Start: 09-11-2024 End: 09-11-2024 [facility] Start: 09-05-2024 End: 09-05-2024 ambulatory [facility] Start: 09-02-2024 End: 09-02-2024 Refill Mikayla Maciel RN [facility] Comment on above: Lumbosacral spondylo sis without myelopathy Start: 08-29-2024 End: 08-29-2024 [facility] Comment on above: SPP Inflammatory Con ditions - Medication Refill (Enbrel) Start: 08-26-2024 End: 08-27-2024 ambulatory Eugenio Ellis MD Work Phone: Rheumatology Start: 08-26-2024 End: 08-27-2024 Patient encounter procedure Eugenio Ellis MD Work Phone: Rheumatology Comment on above: Blood work Start: 08-25-2024 End: 08-25-2024 ambulatory SHANNA JOHNSON Not Available Start: 08-22-2024 End: 08-26-2024 Refill Eugenio Ellis MD Work Phone: Rheumatology Comment on above: Refill Request Start: 08-21-2024 End: 08-21-2024 [facility] Start: 08-21-2024 End: 08-21-2024 Office outpatient visit 25 minutes Rafaela HOU Work Phone: [facility] Comment on above: Osteoarthritis of ca rpometacarpal (CMC) joint of both thumbs (Primary Dx); Encounter for long-term opiate analgesic use Start: 08-21-[address] [facility] Start: 08-13-2024 End: 08-13-2024 ambulatory SHANNA JOHNSON Not Available Start: 08-13-2024 End: 08-13-2024 Mukesh Johnson MD Work Phone: [facility] Start: 08-13-2024 End: 08-13-2024 Bamdan[facility] flowskemal Johnson MD Work Phone: [facility] Start: 08-10-2024 End: 08-11-2024 ambulatory Eugenio Ellis MD Work Phone: Rheumatology Start: 08-10-2024 End: 08-11-2024 Patient encounter procedure Eugenio Ellis MD Work Phone: Rheumatology Comment on above: Enbrel Start: 08-04-2024 End: 08-06-2024 Specialty Pharmacy Jed Dupont [facility] Comment on above: SPP Inflammatory Con ditions - Medication Refill (Enbrel) Start: 08-01-2024 End: 08-04-2024 Refill Mikayla Maciel RN [facility] Comment on above: Lumbosacral spondylo sis without myelopathy Start: 07-18-2024 End: 07-18-2024 ambulatory [facility] Start: 07-07-2024 End: 07-07-2024 Refill Mikayla Maciel RN [facility] Comment on above: Lumbosacral spondylo sis without myelopathy Start: 07-02-2024 End: 07-02-2024 ambulatory Jed [facility] Start: 07-02-2024 End: 07-02-2024 Patient encounter procedure Jed Giuseppe [facility] Comment on above: SPP Inflammatory Con ditions - Treatment Referral (Enbrel); Insurance Authorization (PA submission pending) Start: 07-01-2024 End: 07-02-2024 Telephone encounter Eugenio Ellis MD Work Phone: Rheumatology Comment on above: Medication Authoriza tion Start: 06-30-2024 End: 07-02-2024 ambulatory Eugenio Ellis MD Work Phone: Rheumatology Start: 06-30-2024 End: 07-02-2024 Patient encounter procedure Eugenio Ellis MD Work Phone: Rheumatology Comment on above: [employer] Start: 06-26-2024 End: 06-26-2024 Office outpatient visit 25 minutes Rafaela HOU Work Phone: [facility] Comment on above: Cervical spondylosis without myelopathy (Primary Dx); Lumbosacral spondylosis without myelopathy; Encounter for long-term opiate analgesic use Start: 06-26-2024 End: 06-26-2024 [facility] Start: 06-12-2024 End: 06-12-2024 Emergency department patient visit [facility] Start: 06-06-2024 End: 06-06-2024 [facility] Start: 06-05-2024 End: 06-05-2024 Refill Joan Jackson RN [facility] Comment on above: Lumbosacral spondylo sis without myelopathy Start: 05-13-2024 End: 05-14-2024 Refill Eugenio Ellis MD Work Phone: Rheumatology Comment on above: Refill Request Start: 05-13-2024 End: 06-06-2024 Telephone encounter Rafaela HOU Work Phone: [facility] Start: 05-08-2024 End: 05-08-2024 [facility] Start: 05-08-2024 End: 05-08-2024 Office outpatient visit 25 minutes Rafaela HOU Work Phone: [facility] Comment on above: Cervical spondylosis without myelopathy (Primary Dx); Encounter for long-term opiate analgesic use Start: 05-06-2024 End: 05-07-2024 Refill Mikayla Maciel RN [facility] Comment on above: Lumbosacral spondylo sis without myelopathy Start: 04-24-2024 End: 04-25-2024 ambulatory Eugenio Ellis MD Work Phone: Rheumatology Start: 04-24-2024 End: 04-25-2024 Patient encounter procedure Eugenio Ellis MD Work Phone: Rheumatology Comment on above: [employer] Chronic fatigue synd memo Start: 04-23-2024 End: 04-23-2024 Office outpatient visit 15 minutes Eliana Torres NP Work Phone: [facility] 210 Comment on above: Chronic fatigue synd memo (Primary Dx) Start: 04-23-2024 End: 04-23-2024 ambulatory ELIANA TORRES Not Available Start: 04-11-2024 End: 04-11-2024 ambulatory [facility] Start: 04-06-2024 End: 04-07-2024 Refill Eugenio Ellis MD Work Phone: Rheumatology Comment on above: Refill Request Start: 03-31-2024 End: 04-03-2024 Telephone encounter Jenaro Stone [facility] Radiology Comment on above: Appointment Start: 03-29-2024 End: 03-29-2024 ambulatory KATIE GARCIA Facility:[facility] Start: 03-29-2024 End: 03-29-2024 Patient encounter procedure Eugenio Ellis MD Work Phone: Rheumatology Comment on above: Ankylosing spondylit is of multiple sites in spine (HCC) (Primary Dx); Bilateral hand pain; Pseudogout involving multiple joints; Chronic bilateral low back pain with bilateral sciatica; Hyperuricemia; Leg cramps; Cervicalgia; Paresthesia of both hands; Elevated sed rate; Long-term use of high-risk medication; Raynaud's disease without gangrene; Elevated serum creatinine; 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, multiple sites; Secondary osteoarthritis of multiple sites; Chronic sacroiliac joint pain; Chronic bilateral low back pain without sciatica; Synovitis of right hand; Joint stiffness of multiple sites; Wrist swelling, left Start: 03-29-2024 End: 03-29-2024 Telemedicine consultation with patient Eugenio Ellis MD Work Phone: Rheumatology Start: 03-26-2024 End: 03-26-2024 ambulatory [facility] Start: 03-21-2024 End: 03-25-2024 Refill Joan Jackson RN [facility] Comment on above: Lumbosacral spondylo sis without myelopathy Start: 03-20-2024 End: 03-20-2024 Office outpatient visit 25 minutes Rafaela HOU Work Phone: [facility] Comment on above: Cervical spondylosis without myelopathy (Primary Dx); Encounter for long-term opiate analgesic use Start: 03-20-2024 End: 03-20-2024 [facility] Start: 03-20-2024 End: 03-20-2024 [facility] Start: 03-13-2024 End: 03-13-2024 Patient encounter procedure [facility] LOAD MANAGER-VETERINARY ASSISTANT Work Phone: [facility] Comment on above: Medicare annual well ness visit, subsequent (Primary Dx); Encounter for screening for malignant neoplasm of colon; Mammogram declined Start: 03-13-2024 End: 03-13-2024 ambulatory [facility] Start: 03-06-2024 End: 03-07-2024 ambulatory Eugenio Ellis MD Work Phone: Rheumatology Comment on above: Labs Start: 03-05-2024 End: 03-06-2024 Refill Eugenio Ellis MD Work Phone: Rheumatology Comment on above: Refill Request Start: 03-04-2024 End: 03-05-2024 Refill Tayler Navarro RN [facility] Comment on above: Lumbosacral spondylo sis without myelopathy Start: 02-29-2024 End: 02-29-2024 [facility] Start: 02-12-2024 End: 03-18-2024 Telephone encounter Joan Jackson RN [facility] Start: 02-12-2024 End: 02-12-2024 Office outpatient visit 25 minutes Rafaela HOU Work Phone: [facility] Comment on above: Intervertebral disc 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 (Primary Dx) Start: 02-12-2024 End: 02-12-2024 [facility] Start: 02-11-2024 End: 02-11-2024 [facility] Start: 02-11-2024 End: 02-11-2024 [facility] Start: 02-10-2024 End: 02-12-2024 Refill Eugenio Ellis MD Work Phone: Rheumatology Comment on above: Refill Request Start: 02-01-2024 End: 02-05-2024 Refill Mikayla Maciel RN [facility] Comment on above: Lumbosacral spondylo sis without myelopathy Start: 01-24-2024 End: 01-24-2024 Refill Eugenio Ellis MD Work Phone: [facility] Comment on above: Refill Request Start: 01-23-2024 End: 01-23-2024 ambulatory Jed Gaspar [facility] Comment on above: SPP Inflammatory Con ditions - No-go ([facility] - [facility]); Insurance Authorization ([place] approved) [employer] insurance a pproval Start: 01-23-2024 End: 01-23-2024 E-mail encounter from caregiver [facility] Start: 01-22-2024 End: 01-30-2024 ambulatory Eugenio Ellis MD Work Phone: Rheumatology Comment on above: Additional meds Start: 01-21-2024 End: 01-22-2024 Refill Eugenio Ellis MD Work Phone: Rheumatology Comment on above: Refill Request Start: 01-17-2024 End: 01-17-2024 Patient encounter procedure Eugenio Ellis MD Work Phone: Rheumatology Comment on above: Ankylosing spondylit is of multiple sites in spine (HCC) (Primary Dx); Cervicalgia; Paresthesia of both hands; Long-term use of high-risk medication; Leg cramps; Chronic bilateral low back pain with bilateral sciatica; Elevated sed rate; Elevated C-reactive protein (CRP); Raynaud's disease without gangrene; Elevated serum creatinine; Pseudogout involving multiple joints; 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, multiple sites; Chronic sacroiliac joint pain; Secondary osteoarthritis of multiple sites; Chronic bilateral low back pain without sciatica; Vitamin B12 deficiency; Synovitis of right hand Start: 01-11-2024 ambulatory Eugenio Ellis MD Work Phone: Rheumatology Comment on above: [facility] Refill Request Start: 01-10-2024 Refill Eugenio Ellis MD Work Phone: Rheumatology Comment on above: Refill Request Enbrel Start: 01-02-2024 End: 01-10-2024 Refill Kylah Ocasio RN [facility] Comment on above: Lumbosacral spondylo sis without myelopathy Start: 12-31-2023 ambulatory Eugenio Ellis MD Work Phone: Rheumatology Comment on above: B12 Start: 12-29-2023 ambulatory Eugenio Ellis MD Work Phone: Rheumatology Comment on above: Test results Start: 12-28-2023 Telephone encounter Eugenio meeks MD Work Phone: Rheumatology Comment on above: Results (Labs); Orde rs Start: 12-25-2023 ambulatory Eugenio Ellis MD Work Phone: Rheumatology Comment on above: Blood tests Start: 12-25-2023 End: 12-25-2023 Office outpatient visit 25 minutes Rafaela HOU Work Phone: [facility] Comment on above: Cervical spondylosis without myelopathy (Primary Dx); Lumbosacral spondylosis without myelopathy; Cervical disc displacement; Neck pain; Primary osteoarthritis of first carpometacarpal joint of left hand; Encounter for long-term opiate analgesic use Start: 12-24-2023 Refill Eugenio Ellis MD Work Phone: Rheumatology Comment on above: Refill Request Pharmacy Start: 12-22-2023 Refill Eugenio Ellis MD Work Phone: Rheumatology Comment on above: Refill Request Start: 12-18-2023 ambulatory Eugenio Ellis MD Work Phone: Rheumatology Comment on above: Enbrel prescription Start: 12-12-2023 ambulatory Eugenio Ellis MD Work Phone: Rheumatology Comment on above: Prednisone Start: 11-30-2023 End: 12-03-2023 Refill Monisha Munguia PA-C Work Phone: [facility] Comment on above: Lumbosacral spondylo sis without myelopathy Start: 11-27-2023 ambulatory Eugenio Ellis MD Work Phone: Rheumatology Comment on above: Approval Start: 11-17-2023 ambulatory Eugenio Ellis MD Work Phone: Rheumatology Comment on above: Enbrel Start: 11-14-2023 Telephone encounter Eugenio meeks MD Work Phone: Rheumatology Comment on above: Medication Authoriza tion (Enbrel) Start: 11-13-2023 End: 11-13-2023 Office outpatient visit 25 minutes Rafaela HOU Work Phone: [facility] Comment on above: Localized osteoarthr itis of right shoulder (Primary Dx); Encounter for long-term opiate analgesic use Start: 11-06-2023 End: 11-06-2023 Refill Joan Jackson RN [facility] Comment on above: Lumbosacral spondylo sis without myelopathy Start: 10-11-2023 ambulatory Eugenio Ellis MD Work Phone: Rheumatology Comment on above: Pin[place]e Start: 10-03-2023 End: 10-03-2023 Refill Joan Jackson RN [facility] Comment on above: Lumbosacral spondylo sis without myelopathy Start: 09-20-2023 Refill Eugenio Ellis MD Work Phone: Rheumatology Comment on above: Refill Request Start: 09-06-2023 Refill Kylah Ocasio RN [facility] Comment on above: Lumbosacral spondylo sis without myelopathy Start: 08-21-2023 ambulatory Eugenio Ellis MD Work Phone: Rheumatology Comment on above: Enbrel Start: 08-17-2023 ambulatory Eugenio Ellis MD Work Phone: Rheumatology Comment on above: Enbrel Start: 08-08-2023 End: 10-09-2023 Telephone encounter Melissa Chapa CST [facility] Start: 08-02-2023 End: 08-02-2023 Office outpatient visit 25 minutes Rafaela HOU Work Phone: [facility] Comment on above: Encounter for long-t erm opiate analgesic use (Primary Dx); Lumbosacral spondylosis without myelopathy Start: 07-26-2023 Telephone encounter Eugenio meeks MD Work Phone: Rheumatology Comment on above: Medication Authoriza tion (cyclobenzaprine) Start: 07-25-2023 ambulatory Eugenio Ellis MD Work Phone: Rheumatology Comment on above: Cyclobenzaprine Start: 07-04-2023 Telephone encounter Eugenio meeks MD Work Phone: Rheumatology Comment on above: Results (Labs-[facility]) Start: 07-03-2023 End: 07-03-2023 Office outpatient visit 25 minutes Rafaela HOU Work Phone: [facility] Comment on above: Localized primary os teoarthritis of left wrist (Primary Dx); Lumbosacral spondylosis without myelopathy; Encounter for long-term opiate analgesic use Start: 06-07-2023 End: 06-07-2023 ambulatory Danni Sharp Other [facility] Other Start: 06-07-2023 Office outpatient ne w 30 minutes Danni Sharp [facility] Start: 06-06-2023 Telephone encounter Joan Jackson RN [facility] Start: 05-31-2023 End: 05-31-2023 Office outpatient visit 15 minutes Rafaela HOU Work Phone: [facility] Comment on above: Encounter for long-t erm opiate analgesic use (Primary Dx); Lumbosacral spondylosis without myelopathy Start: 04-01-2023 ambulatory Eugenio Ellis MD Work Phone: Rheumatology Comment on above: Prednisone Start: 03-09-2023 ambulatory Eugenio Ellis MD Work Phone: Rheumatology Comment on above: C[facility] Start: 03-01-2023 Telephone encounter Eugenio meeks MD Work Phone: Rheumatology Comment on above: Medication Request Start: 02-26-2023 ambulatory Eugenio Ellis MD Work Phone: Rheumatology Comment on above: Specialty pharmacy Start: 02-26-2023 Telephone encounter Lida Key LPN Rheumatology Comment on above: Results (Lab results -[facility]) Start: 02-17-2023 Refill Eugenio Ellis MD Work Phone: Rheumatology Comment on above: Refill Request Start: 02-16-2023 Refill Eugenio Ellis MD Work Phone: Rheumatology Comment on above: Refill Request Start: 02-14-2023 ambulatory Jed Gaspar (Pharmacist) [facility] Start: 02-14-2023 Patient encounter procedure Jed Gaspar (Pharmacist) [facility] Comment on above: SPP Inflammatory Con ditions - Treatment Referral ([facility]); Insurance Authorization ([place] submission pending) Start: 02-14-2023 Telephone encounter Eugenio meeks MD Work Phone: Rheumatology Comment on above: Medication Authoriza tion Start: 02-12-2023 ambulatory Eugenio Ellis MD Work Phone: Rheumatology Comment on above: Wrist, shoulder Start: 01-21-2023 ambulatory Eugenio Ellis MD Work Phone: Rheumatology Comment on above: Test results Start: 01-18-2023 Refill Eugenio Ellis MD Work Phone: Rheumatology Comment on above: Refill Request Start: 01-17-2023 Refill Eugenio Ellis MD Work Phone: Rheumatology Comment on above: Refill Request Start: 12-19-2022 ambulatory Eugenio Ellis MD Work Phone: Rheumatology Comment on above: Prescription Start: 11-01-2022 Refill Eugenio Ellis MD Work Phone: Rheumatology Comment on above: Refill Request Start: 11-01-2022 Refill Eugenio Ellis MD Work Phone: Rheumatology Comment on above: Refill Request Start: 09-07-2022 Telephone encounter Eugenio meeks MD Work Phone: Rheumatology Comment on above: Results Start: 08-28-2022 End: 08-28-2022 Patient encounter procedure Eugenio Ellis MD Work Phone: Rheumatology Comment on above: Ankylosing spondylit is of multiple sites in spine (HCC) (Primary Dx); Long-term use of high-risk medication; Bilateral hand pain; Secondary osteoarthritis of multiple sites; Raynaud's disease without gangrene; Chronic bilateral low back pain without sciatica; Pain in left wrist; Vitamin D deficiency; Vitamin B12 deficiency; Elevated sed rate; Elevated C-reactive protein (CRP) Start: 08-17-2022 Telephone encounter Eugenio meeks MD Work Phone: Rheumatology Comment on above: Results (labs-[facility]) Start: 08-16-2022 Telephone encounter Eugenio meeks MD Work Phone: [place] Comment on above: Lab Orders Start: 08-08-2022 ambulatory Eugenio Ellis MD Work Phone: Rheumatology Comment on above: Blood tests Start: 03-07-2022 ambulatory Eugenio Ellis MD Work Phone: Rheumatology Comment on above: Enbrel denied Start: 03-04-2022 ambulatory Eugenio Ellis MD Work Phone: Rheumatology Comment on above: Enbrel still won t s hip Start: 03-03-2022 Refill Eugenio Ellis MD Work Phone: Rheumatology Comment on above: Refill Request Start: 02-20-2022 Refill Eugenio Ellis MD Work Phone: Rheumatology Comment on above: Refill Request Start: 02-12-2022 Refill Eugenio Ellis MD Work Phone: Rheumatology Comment on above: Refill Request Start: 02-03-2022 Refill Eugenio Ellis MD Work Phone: Rheumatology Comment on above: Refill Request Start: 01-23-2022 Telephone encounter Eugenio meeks MD Work Phone: Rheumatology Comment on above: Medication Authoriza tion (Enbrel-BCBS) Start: 12-08-2021 Refill Eugenio Ellis MD Work Phone: Rheumatology Comment on above: Refill Request Start: 12-02-2021 Telephone encounter Eugenio meeks MD Work Phone: Rheumatology Comment on above: Results Start: 11-24-2021 Refill Eugenio Ellis MD Work Phone: Rheumatology Comment on above: Refill Request Start: 11-11-2021 End: 11-11-2021 ambulatory Eugenio Ellis MD Work Phone: Rheumatology Comment on above: Ankylosing spondylit is of multiple sites in spine (HCC) (Primary Dx); Chronic bilateral low back pain with bilateral sciatica; Long-term use of high-risk medication; Chronic fatigue; Bilateral hand pain; Secondary osteoarthritis of multiple sites; Paresthesia of both hands; Raynaud's disease without gangrene; Chronic sacroiliac joint pain; Vitamin B12 deficiency; Low vitamin D level; Leg cramps; Vitamin D deficiency Start: 11-11-2021 End: 11-11-2021 Telemedicine consultation with patient Eugenio Ellis MD Work Phone: [facility] Start: 11-09-2021 ambulatory Eugenio Ellis MD Work Phone: Rheumatology Comment on above: Prescriptions and te sts Online visit and pre scriptions Please Complete Labs Refill Request Start: 11-08-2021 ambulatory Eugenio Ellis MD Work Phone: Rheumatology Comment on above: Prescriptions Start: 10-27-2021 Telephone encounter Eugenio meeks MD Work Phone: Rheumatology Comment on above: Insurance Authorizat ion (Enbrel ) Procedures Date Procedure Procedure Detail Performing Clinician Start: 09-11-2024 Hemoglobin glycosyla charity a1c Parish Dean LOAD MANAGER-VETERINARY ASSISTANT Work Phone: Start: 09-11-2024 Follow-up visit Follow-up GARETH DEAN Start: 09-11-2024 Adult depression scr eening assessment Parish Dean LOAD MANAGER-VETERINARY ASSISTANT Work Phone: Start: 03-13-2024 Adult depression scr eening assessment Parish Dean LOAD MANAGER-VETERINARY ASSISTANT Work Phone: Start: 02-11-2024 Adult depression scr eening assessment Rafaela HOU Work Phone: Start: 02-11-2024 Lipid 1996 panel - S alexander or Plasma Eugenio Ellis MD Work Phone: Start: 11-10-2021 Adult depression scr eening assessment Eugenio Ellis MD Work Phone: Start: 01-17-2021 Adult depression scr eening assessment Eugenio Ellis MD Work Phone: Plan of Treatment Date Care Activity Detail Author Start: 02-19-2033 Urine microalbumin profile DTaP,Tdap,Td Vaccine (2 - Td or Tdap) [facility] Start: 02-10-2029 Lipid panel Lipid Screening [facility] Start: 11-26-2027 Diabetes Screening Diabetes Screening [facility] Start: 03-26-2027 Diabetes Screening Diabetes Screening [facility] Start: 03-26-2027 Screening for malignant neoplasm of colon [facility] Start: 02-10-2027 Diabetes Screening Diabetes Screening [facility] Start: 12-24-2026 Diabetes Screening Diabetes Screening [facility] Start: 07-03-2026 Diabetes Screening Diabetes Screening [facility] Start: 03-19-2026 Diabetes Screening Diabetes Screening [facility] Start: 01-01-2026 Adult BMI Screening Adult BMI Screening [facility] Start: 01-01-2026 Tobacco Screening Tobacco Screening [facility] Start: 11-25-2025 Tobacco Screening Tobacco Screening [facility] Start: 11-23-2025 End: 11-23-2025 Patient encounter procedure 11/23/2025 1:40 PM EDT Office Visit Rheumatology [address] [place] [address] Eugenio Ellis MD [address] [facility] [place] [address] for fu OV 6-12months. Rheumatology Comment on above: for fu OV 6-12months. Start: 10-31-2025 Tobacco Screening Tobacco Screening [facility] Start: 10-24-2025 Adult BMI Screening Adult BMI Screening [facility] Start: 09-23-2025 Tobacco Screening Tobacco Screening [facility] Start: 09-11-2025 Adult BMI Screening Adult BMI Screening [facility] Start: 09-11-2025 Depression Screening Depression Screening [facility] Start: 09-11-2025 Diabetic foot examination Diabetic Foot Exam [facility] Start: 09-11-2025 Tobacco Screening [facility] Start: 08-21-2025 Adult BMI Screening Adult BMI Screening [facility] Start: 08-21-2025 Tobacco Screening Tobacco Screening [facility] Start: 07-18-2025 Tobacco Screening Tobacco Screening [facility] Start: 06-26-2025 Adult BMI Screening Adult BMI Screening [facility] Start: 06-26-2025 Tobacco Screening Tobacco Screening [facility] Start: 06-06-2025 Tobacco Screening Tobacco Screening [facility] Start: 05-21-2025 End: 05-21-2025 Patient encounter procedure 05/21/2025 8:40 AM EST Office Visit [facility] [address] [place] [phone] Parish Dean, LOAD MANAGER-VETERINARY ASSISTANT [address] [place] [phone] [facility] Start: 05-08-2025 Tobacco Screening Tobacco Screening [facility] Start: 04-11-2025 Tobacco Screening Tobacco Screening [facility] Start: 03-20-2025 Adult BMI Screening Adult BMI Screening [facility] Start: 03-20-2025 Tobacco Screening Tobacco Screening [facility] Start: 03-16-2025 End: 03-16-2025 Patient encounter procedure 03/16/2025 8:40 AM EDT Office Visit [facility] [address] [place] [phone] Parish Dean, LOAD MANAGER-VETERINARY ASSISTANT [address] [place] [address], [place] [phone] [facility] Start: 03-13-2025 Adult BMI Screening Adult BMI Screening [facility] Start: 03-13-2025 Depression Screening Depression Screening [facility] Start: 03-13-2025 Tobacco Screening Tobacco Screening [facility] Start: 02-28-2025 Tobacco Screening Tobacco Screening [facility] Start: 02-13-2025 End: 02-13-2025 Specialty Pharmacy 02/13/2025 11:00 AM EDT Specialty Pharmacy [facility] [address] [place] [phone] Pharmacist, [facility] [address] [place] [address] [place] [address] REFILL- Enbrel- PAx 07/10/25Tuesdays, 02/24 [facility] Comment on above: REFILL- Enbrel- PAx 07/10/25Tuesdays, 02/24 Start: 02-11-2025 Tobacco Screening Tobacco Screening [facility] Start: 02-10-2025 Adult BMI Screening Adult BMI Screening [facility] Start: 02-10-2025 Depression Screening Depression Screening [facility] Start: 02-02-2025 Influenza vaccination [facility] Start: 01-22-2025 End: 01-22-2025 Patient encounter procedure 01/22/2025 1:45 PM EDT Office Visit [facility] [address] [place] [address] Rafaela Cash, PA [address] [place] [address] [facility] Start: 01-17-2025 Tobacco Screening Tobacco Screening [facility] Start: 01-16-2025 End: 01-16-2025 Specialty Pharmacy 01/16/2025 11:00 AM EDT Specialty Pharmacy [facility] [address] [place] [id number] Pharmacist, [facility] [address] [place] [address] [place], [place] [id number] REFILL- Enbrel- PAx 07/10/25Tuesdays, 01/27 [facility] Comment on above: REFILL- Enbrel- PAx 07/10/25Tuesdays, 01/27 Start: 01-14-2025 End: 01-14-2025 Patient encounter procedure 01/14/2025 9:40 AM EDT Office Visit [facility] [address] [place] [address] Shanna Johnson MD [address] [facility] [address] [place] [address] [place] [phone] [facility] Start: 01-09-2025 End: 01-09-2025 Admission to same day surgery center 01/09/2025 12:33 PM EDT - 01/09/2025 12:40 PM EDT Surgery [facility] [address] [facility] [place] [phone] Sky Hemphill MD [address], [place] [id number] INJECTION BLOCK SACROILIAC JOINT [83154 (CPT )] [facility] Comment on above: INJECTION BLOCK SACROILIAC JOINT [73760 (CPT )] Start: 01-09-2025 End: 01-09-2025 Inject si joint arthrgrphy&/anes/steroid w/janusz INJECTION BLOCK SACROILIAC JOINT Disorder of sacrum 01/09/2025 12:33 PM EDT [facility] Start: 01-09-2025 Subsequent hospital visit by physician 01/09/2025 12:33 PM EDT Hospital Encounter [facility] [address] [place] [phone] Sky Hemphill MD [address] [place], [place] [phone] [facility] Start: 01-01-2025 End: 01-01-2025 Patient encounter procedure 01/01/2025 9:15 AM EDT Office Visit [facility] [address] [facility] [place] [address] Rafaela Cash PA [address] [place], [place] [phone] [facility] Start: 12-24-2024 Tobacco Screening Tobacco Screening [facility] Start: 12-19-2024 End: 12-19-2024 Arthrocentesis aspir&/inj small jt/bursa w/o us INJECTION BURSA SMALL JOINT Localized primary osteoarthritis of carpometacarpal (CMC) joint of left wrist 12/19/2024 1:29 PM EDT [facility] Start: 12-19-2024 End: 12-19-2024 Specialty Pharmacy [facility] Comment on above: REFILL- Enbrel- PAx 07/10/25- Tuesdays, [place] 12/30 INJECTION BURSA SMAL L JOINT Left 1st CMC [ (CPT )] Start: 12-01-2024 End: 12-01-2024 Patient encounter procedure 12/01/2024 1:20 PM EDT Office Visit Rheumatology [address] [place], [place] [phone] Eugenio Ellis MD [address] [place] [address] osteoarthritis/ fu OV 6-12months. Rheumatology Comment on above: osteoarthritis/ fu OV 6-12months. Start: 11-29-2024 Tobacco Screening Tobacco Screening [facility] Start: 11-25-2024 End: 11-25-2024 Patient encounter procedure 11/25/2024 12:45 PM EDT Office Visit [facility] [address] [place] [place] [address] Rafaela Cash PA [address], [address] [place], [place] [phone] [facility] Start: 11-21-2024 End: 11-21-2024 Specialty Pharmacy 11/21/2024 11:00 AM EDT Specialty Pharmacy [facility] [address] [place] [address] Pharmacist, [facility] [address] [place] [address] [place] [address] REFILL- Enbrel- PAx 07/10/25- Tuesdays, 12/02 [facility] Comment on above: REFILL- Enbrel- PAx 07/10/25- Tuesdays, 12/02 Start: 11-12-2024 Adult BMI Screening Adult BMI Screening [facility] Start: 11-12-2024 Tobacco Screening Tobacco Screening [facility] Start: 10-29-2024 End: 10-29-2024 Patient encounter procedure 10/29/2024 9:40 AM EDT Office Visit [facility] [address] [address] Shanna Johnson MD [address] [facility] [address] [phone] Arrived [facility] Comment on above: Arrived Start: 10-23-2024 End: 10-23-2024 Patient encounter procedure [facility] Comment on above: REFILL- Enbrel- PAx 07/10/25- ND 11/04 Start: 10-21-2024 End: 10-21-2024 Patient encounter procedure 10/21/2024 7:15 AM EDT Appointment [facility] [address] [place] [phone] Rafaela Cash PA [address], [address]nd [place] [address] [facility] Start: 10-11-2024 Tobacco Screening Tobacco Screening [facility] Start: 10-03-2024 End: 10-03-2024 Admission to same day surgery center [facility] Comment on above: INJECTION BURSA LARGE JOINT: right shoul mariam [13485 (CPT )] Start: 10-03-2024 End: 10-03-2024 Arthrocentesis aspir&/inj major jt/[facility]ursa w/[facility] Start: 10-03-2024 Subsequent hospital visit by physician [facility] Start: 10-03-2024 End: 10-03-2024 Patient encounter procedure 10/03/2024 10:05 AM EDT Appointment [facility] [address] [place] [phone] Sky Hemphill MD [address] [place], [place] [phone] [facility] Start: 09-26-2024 End: 09-26-2024 Specialty Pharmacy 09/26/2024 11:00 AM EDT Specialty Pharmacy [facility] [address] [facility] [address] [place] [phone] Pharmacist, [facility] [address] [place], [place] [phone] REFILL- Enbrel- PAx 07/10/25- 10/07 [facility] Comment on above: REFILL- Enbrel- PAx 07/10/25- 10/07 Start: 09-23-2024 End: 09-23-2024 Patient encounter procedure 09/23/2024 9:15 AM EDT Office Visit [facility] [address] [place] [phone] Rafaela Cash, AMEYA [address], [address]nd [address] [place], [place] [phone] [facility] Start: 09-11-2024 End: 09-11-2024 Patient encounter procedure 09/11/2024 10:40 AM EDT Office Visit [facility] [address] [place] [place] [address] Parish Dean, LOAD MANAGER-VETERINARY ASSISTANT [address] [place] [address], [place] [address] [facility] Start: 09-05-2024 End: 09-05-2024 Admission to same day surgery center 09/05/2024 8:11 AM EDT - 09/05/2024 8:18 AM EDT Surgery [facility] [address] [place] [phone] Sky Hemphill MD [address] [facility], [place] [phone] INJECTION BURSA SMALL JOINT Bilat 1st CMC [ (CPT )] [facility] Comment on above: INJECTION BURSA SMALL JOINT Bilat 1st CM C [ (CPT )] Start: 09-05-2024 End: 09-05-2024 Arthrocentesis aspir&/inj small jt/bursa w/o us INJECTION BURSA SMALL JOINT Osteoarthritis of carpometacarpal (CMC) joint of both thumbs 09/05/2024 8:11 AM EDT [facility] Start: 09-05-2024 Subsequent hospital visit by physician 09/05/2024 8:11 AM EDT Hospital Encounter [facility] [address] [place] [phone] Sky Hemphill MD [address] [facility] [place] [phone] [facility] Start: 09-05-2024 End: 09-05-2024 Patient encounter procedure 09/05/2024 7:30 AM EDT Appointment [facility] [address] [place] [phone] Sky Hemphill MD [address] [place] [address] [facility] Start: 09-02-2024 End: 09-02-2024 Specialty Pharmacy 09/02/2024 11:15 AM EDT Specialty Pharmacy [facility] [address] [place] [id number] Pharmacist, [facility] [address] [place] [address] [place] [address] REFILL- Enbrel- PAx 07/10/25- 09/09 - LVM 08/29 [facility] Comment on above: REFILL- Enbrel- PAx 07/10/25- 09/09 - L VM 08/29 Start: 08-29-2024 End: 08-29-2024 Specialty Pharmacy 08/29/2024 11:00 AM EDT Specialty Pharmacy [facility] [address] [place] [address] Pharmacist, [facility] [address] [place] [address] [place] [address] REFILL- Enbrel- PAx 07/10/25- 09/09 [facility] Comment on above: REFILL- Enbrel- PAx 07/10/25- 09/09 Start: 08-23-2024 Tobacco Screening Tobacco Screening [facility] Start: 08-21-2024 End: 08-21-2024 Patient encounter procedure 08/21/2024 9:45 AM EDT Office Visit [facility] [address] [place] [phone] Rafaela Cash, PA [address], [address] [place], [place] [phone] [facility] Start: 08-13-2024 End: 08-13-2024 Patient encounter procedure 08/13/2024 3:40 PM EDT Office Visit [facility] [address] [place] [address] Shanna Johnson MD [address] [facility] [address] [place] [address] Arrived [facility] Comment on above: Arrived Start: 08-01-2024 Tobacco Screening Tobacco Screening [facility] Start: 07-18-2024 End: 07-18-2024 Admission to same day surgery center 07/18/2024 8:32 AM EST - 07/18/2024 8:45 AM EST Surgery [facility] [address] [facility] [place] [address] Sky Hemphill MD [address] [place] [address] RADIOFREQUENCY ABLATION SPINAL: left C 5/6, 6/7 [27372 (CPT )] [facility] Comment on above: RADIOFREQUENCY ABLATION SPINAL: left C 5 /6, 6/7 [99099 (CPT )] Start: 07-18-2024 End: 07-18-2024 Dstr nrolytc agnt parverteb fct sngl crvcl/thora RADIOFREQUENCY ABLATION SPINAL Cervical spondylosis without myelopathy 07/18/2024 8:32 AM EST [facility] Start: 07-18-2024 Subsequent hospital visit by physician 07/18/2024 8:32 AM EST Hospital Encounter [facility] [address] [place] [address] Sky Hemphill MD [address] [place] [address] [facility] Start: 07-03-2024 Tobacco Screening Tobacco Screening [facility] Start: 07-01-2024 End: 07-01-2025 25-hydroxyvitamin D3 [Mass/volume] in Serum or Plasma VITAMIN D 25 HYDROXY Lab Routine Vitamin D deficiency Expected: 07/01/2024 (Approximate), Expires: 07/01/2025 [facility] Comment on above: Expected: 07/01/2024 (Approximate), Expi res: 07/01/2025 Start: 07-01-2024 End: 07-01-2025 BLOOD TB SCREEN BLOOD TB SCREEN Lab Routine Screening-pulmonary TB Expected: 07/01/2024 (Approximate), Expires: 07/01/2025 [facility] Comment on above: Expected: 07/01/2024 (Approximate), Expi res: 07/01/2025 Start: 07-01-2024 End: 07-01-2025 C reactive protein [Mass/volume] in Serum or Plasma C-REACTIVE PROTEIN Lab Routine Elevated sed rate Elevated C-reactive protein (CRP) Expected: 07/01/2024 (Approximate), Expires: 07/01/2025 [facility] Comment on above: Expected: 07/01/2024 (Approximate), Expi res: 07/01/2025 Start: 07-01-2024 End: 07-01-2025 CBC panel - Blood by Automated count COMPLETE BLOOD COUNT Lab Routine Anemia of chronic disease Expected: 07/01/2024 (Approximate), Expires: 07/01/2025 [facility] Comment on above: Expected: 07/01/2024 (Approximate), Expi res: 07/01/2025 Start: 07-01-2024 End: 07-01-2025 Chronic hepatitis differentiation between hepatitis B and C virus panel - Serum or Plasma HEP REMOTE PANEL BL Lab Routine Elevated LFTs Expected: 07/01/2024 (Approximate), Expires: 07/01/2025 [facility] Comment on above: Expected: 07/01/2024 (Approximate), Expi res: 07/01/2025 Start: 07-01-2024 End: 07-01-2025 Comprehensive metabolic 2000 panel - Serum or Plasma COMPREHENSIVE METABOLIC PANEL Lab Routine Elevated LFTs Expected: 07/01/2024 (Approximate), Expires: 07/01/2025 [facility] Work Phone: Comment on above: Expected: 07/01/2024 (Approximate), Expi res: 07/01/2025 Start: 07-01-2024 End: 07-01-2025 Erythrocyte sedimentation rate SEDIMENTATION RATE, WESTERGREN Lab Routine Elevated sed rate Elevated C-reactive protein (CRP) Expected: 07/01/2024 (Approximate), Expires: 07/01/2025 [facility] Comment on above: Expected: 07/01/2024 (Approximate), Expi res: 07/01/2025 Start: 06-26-2024 End: 06-26-2024 Patient encounter procedure 06/26/2024 9:15 AM EST Office Visit [facility] [address] [facility] [place] [address] Rafaela Cash PA [address], [address]nd [place] [address] [facility] Start: 06-06-2024 End: 06-06-2024 Admission to same day surgery center 06/06/2024 2:46 PM EST - 06/06/2024 2:54 PM EST Surgery [facility] [address] [place] [address] Sky Hemphill MD [address] [place] [address] INJECTION BLOCK NERVE MEDIAL BRANCH: left C 5/6, 6/7 [82739 (CPT )] [facility] Comment on above: INJECTION BLOCK NERVE MEDIAL BRANCH: lef t C 5/6, 6/7 [38177 (CPT )] Start: 06-06-2024 End: 06-06-2024 Njx dx/ther agt pvrt facet jt crv/thrc 1 level INJECTION BLOCK NERVE MEDIAL BRANCH Cervical spondylosis without myelopathy 06/06/2024 2:46 PM EST [facility] Start: 06-06-2024 Subsequent hospital visit by physician 06/06/2024 2:46 PM EST Hospital Encounter [facility] [address] [place] [address] Sky Hemphill MD [address] [place] [address] [facility] Start: 06-06-2024 End: 06-06-2024 Admission to same day surgery center 06/06/2024 7:25 AM EST - 06/06/2024 7:33 AM EST Surgery [facility] [address] [place] [address] Sky Hemphill MD [address] [facility] [place] [address] INJECTION BLOCK NERVE MEDIAL BRANCH: left C 5/6, 6/7 [67791 (CPT )] [facility] Comment on above: INJECTION BLOCK NERVE MEDIAL BRANCH: lef t C 5/6, 6/7 [98568 (CPT )] Start: 06-06-2024 End: 06-06-2024 Njx dx/ther agt pvrt facet jt crv/thrc 1 level INJECTION BLOCK NERVE MEDIAL BRANCH Cervical spondylosis without myelopathy 06/06/2024 7:25 AM EST [facility] Start: 06-06-2024 Subsequent hospital visit by physician 06/06/2024 7:25 AM EST Hospital Encounter [facility] [address] [facility] [place] [phone] Sky eHmphill MD [address] [place] [address] [facility] Start: 06-06-2024 End: 06-06-2024 Patient encounter procedure 06/06/2024 7:10 AM EST Appointment [facility] [address] [facility] [place] [address] Sky Hemphill MD [address] [place] [address] [facility] Start: 05-31-2024 Adult BMI Screening Adult BMI Screening [facility] Start: 05-31-2024 Tobacco Screening Tobacco Screening [facility] Start: 05-08-2024 End: 05-08-2024 Patient encounter procedure 05/08/2024 8:00 AM EST Office Visit [facility] [address] [place] [phone] Rafaela Cash, PA [address], [address] [place], [place] [phone] [facility] Start: 04-29-2024 End: 04-29-2024 Patient encounter procedure 04/29/2024 10:30 AM EST Office Visit [facility] [address] [place] [phone] Rafaela Cash PA [address] [place], [place] [phone] [facility] Start: 04-11-2024 End: 04-11-2024 Admission to same day surgery center [facility] Comment on above: INJECTION BLOCK NERVE MEDIAL BRANCH: lef t C 10/07, 6 [89468 (CPT )] Start: 04-11-2024 End: 04-11-2024 Njx dx/ther agt pvrt facet jt crv/thrc 1 level [facility] Start: 04-11-2024 Subsequent hospital visit by physician [facility] Start: 03-20-2024 End: 03-20-2024 Patient encounter procedure 03/20/2024 1:45 PM EDT Office Visit [facility] [address] [place] [address] Rafaela Cash, AMEYA [address], [address] [place] [address] [facility] Start: 03-13-2024 End: 03-13-2024 Patient encounter procedure 03/13/2024 11:00 AM EDT Office Visit [facility] [address] [facility] [place] [address] Parish Dean, LOAD MANAGER-VETERINARY ASSISTANT [address], [place] [address] [facility] Start: 03-06-2024 End: 06-05-2024 25-hydroxyvitamin D3 [Mass/volume] in Serum or Plasma VITAMIN D 25 HYDROXY Lab Routine Vitamin D deficiency Expected: 03/06/2024, Expires: 06/05/2024 [facility] Comment on above: Expected: 03/06/2024, Expires: Start: 03-06-2024 End: 06-05-2024 C reactive protein [Mass/volume] in Serum or Plasma C-REACTIVE PROTEIN Lab Routine Elevated sed rate Pseudogout involving multiple joints Long-term use of high-risk medication Expected: 03/06/2024, Expires: 06/05/2024 [facility] Comment on above: Expected: 03/06/2024, Expires: Start: 03-06-2024 End: 06-05-2024 Cobalamin (Vitamin B12) [Mass/volume] in Serum or Plasma VITAMIN B12 Lab Routine Vitamin B12 deficiency Expected: 03/06/2024, Expires: 06/05/2024 [facility] Work Phone: Comment on above: Expected: 03/06/2024, Expires: Start: 03-06-2024 End: 06-05-2024 Erythrocyte sedimentation rate SEDIMENTATION RATE, WESTERGREN Lab Routine Elevated sed rate Pseudogout involving multiple joints Long-term use of high-risk medication Expected: 03/06/2024, Expires: 06/05/2024 [facility] Comment on above: Expected: 03/06/2024, Expires: Start: 02-29-2024 End: 02-29-2024 Admission to same day surgery center 02/29/2024 7:15 AM EDT - 02/29/2024 7:22 AM EDT Surgery [facility] [address] [place] [phone] Sky Hemphill MD [address] [place], [place] [phone] INJECTION BLOCK EPIDURAL CERVICAL/THORACIC: C71 joanne [57861 (CPT )] [facility] Comment on above: INJECTION BLOCK EPIDURAL CERVICAL/THORAC IC: C71 joanne [75810 (CPT )] Start: 02-29-2024 End: 02-29-2024 Njx dx/ther sbst intrlmnr crv/thrc w/img gdn INJECTION BLOCK EPIDURAL CERVICAL/THORACIC Intervertebral disc 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 02/29/2024 7:15 AM EDT [facility] Start: 02-29-2024 Subsequent hospital visit by physician 02/29/2024 7:15 AM EDT Hospital Encounter [facility] [address] [place] [phone] Sky Hemphill MD [address] [facility], [place] [phone] [facility] Start: 02-12-2024 End: 02-12-2024 Patient encounter procedure 02/12/2024 1:45 PM EDT Office Visit [facility] [address] [place] [address] Rafaela Cash PA [address], [address] [place], [place] [phone] [facility] Start: 02-11-2024 End: 02-11-2024 Patient encounter procedure 02/11/2024 9:00 AM EDT Office Visit [facility] [address] [place] [phone] Parish Dean, LOAD MANAGER-VETERINARY ASSISTANT [address], [address] [facility] [place] [place] [address] [facility] Start: 02-03-2024 Influenza vaccination [facility] Start: 01-26-2024 DIABETES SCREEN DIABETES SCREEN [facility] Start: 01-26-2024 Diabetes Screening Diabetes Screening [facility] Start: 01-20-2024 DIABETES SCREEN DIABETES SCREEN [facility] Start: 01-18-2024 End: 01-18-2024 Admission to same day surgery center [facility] Comment on above: INJECTION BURSA SMALL JOINT Left 1st CMC [ (CPT )] Start: 01-18-2024 End: 01-18-2024 Arthrocentesis aspir&/inj small jt/bursa w/o us [facility] Start: 01-18-2024 Subsequent hospital visit by physician [facility] Start: 01-17-2024 End: 01-17-2024 Patient encounter procedure 01/17/2024 12:40 PM EDT Office Visit Rheumatology [address] [place] [address] Eugenio Ellis MD [address] [place] [address] Ankylosing Spondylitis/Joint Pain fu OV 6-12 months Rheumatology Comment on above: Ankylosing Spondylitis/Joint Pain fu OV 6-12 months Start: 01-10-2024 End: 01-10-2024 Patient encounter procedure 01/10/2024 12:40 PM EDT Office Visit Rheumatology [address] [place] [address] Eugenio Ellis MD [address] [place] [address] Return for ankylosing spondylitis/joint pain fu OV 6-12months. Rheumatology Comment on above: Return for ankylosing spondylitis/joint pain fu OV 6-12months. Start: 12-25-2023 End: 12-25-2023 Patient encounter procedure 12/25/2023 1:30 PM EDT Office Visit [facility] [address] [place] [address] Rafaela Cash PA [address], [address] [place], [place] [phone] [facility] Start: 11-30-2023 End: 11-30-2023 Admission to same day surgery center 11/30/2023 2:38 PM EDT - 11/30/2023 2:45 PM EDT Surgery [facility] [address] [place] [address] Sky Hemphill MD [address] [place], [place] [phone] INJECTION BURSA LARGE JOINT: right shoulder [ (CPT )] [facility] Comment on above: INJECTION BURSA LARGE JOINT: right shoul mariam [ (CPT )] Start: 11-30-2023 End: 11-30-2023 Arthrocentesis aspir&/inj major jt/bursa w/o us INJECTION BURSA LARGE JOINT Localized osteoarthritis of right shoulder 11/30/2023 2:38 PM EDT [facility] Start: 11-30-2023 Subsequent hospital visit by physician 11/30/2023 2:38 PM EDT Hospital Encounter [facility] [address] [place] [address] Sky Hemphill MD [address] [place], [place] [phone] [facility] Start: 11-13-2023 End: 11-13-2023 Patient encounter procedure 11/13/2023 10:15 AM EDT Office Visit [facility] [address] [place] [address] Rafaela Cash PA [address], [address] [place] [address] [facility] Start: 10-12-2023 End: 10-12-2023 Admission to same day surgery center 10/12/2023 11:50 AM EDT - 10/12/2023 12:00 PM EDT Surgery [facility] [address] [place] [address] Sky Hemphill MD [address] [place], [place] [phone] RADIOFREQUENCY ABLATION SPINAL: right L 4/5, 5/1 [64602 (CPT )] [facility] Comment on above: RADIOFREQUENCY ABLATION SPINAL: right L 4/5, 5/1 [43109 (CPT )] Start: 10-12-2023 End: 10-12-2023 Dstr nrolytc agnt parverteb fct sngl lmbr/sacral RADIOFREQUENCY ABLATION SPINAL Lumbosacral spondylosis without myelopathy 10/12/2023 11:50 AM EDT [facility] Start: 10-12-2023 Subsequent hospital visit by physician 10/12/2023 11:50 AM EDT Hospital Encounter [facility] [address] [place] [address] Sky Hemphill MD [address] [place] [address] [facility] Start: 10-07-2023 End: 07-09-2024 25-hydroxyvitamin D3 [Mass/volume] in Serum or Plasma VITAMIN D 25 HYDROXY Lab Routine Vitamin D deficiency Expected: 10/07/2023 (Approximate), Expires: 07/09/2024 [facility] Work Phone: Comment on above: Expected: 10/07/2023 (Approximate), Expi res: 07/09/2024 Start: 10-07-2023 End: 07-09-2024 BLOOD TB SCREEN BLOOD TB SCREEN Lab Routine Screening-pulmonary TB Expected: 10/07/2023 (Approximate), Expires: 07/09/2024 [facility] Work Phone: Comment on above: Expected: 10/07/2023 (Approximate), Expi res: 07/09/2024 Start: 10-07-2023 End: 07-09-2024 C reactive protein [Mass/volume] in Serum or Plasma C-REACTIVE PROTEIN (CRP) Lab Routine Elevated sed rate Elevated C-reactive protein (CRP) Expected: 10/07/2023 (Approximate), Expires: 07/09/2024 [facility] Work Phone: Comment on above: Expected: 10/07/2023 (Approximate), Expi res: 07/09/2024 Start: 10-07-2023 End: 07-09-2024 CBC panel - Blood by Automated count CBC Lab Routine Anemia of chronic disease Expected: 10/07/2023 (Approximate), Expires: 07/09/2024 [facility] Work Phone: Comment on above: Expected: 10/07/2023 (Approximate), Expi res: 07/09/2024 Start: 10-07-2023 End: 07-09-2024 Cobalamin (Vitamin B12) [Mass/volume] in Serum or Plasma VITAMIN B12 BLOOD Lab Routine Vitamin B12 deficiency Expected: 10/07/2023 (Approximate), Expires: 07/09/2024 [facility] Work Phone: Comment on above: Expected: 10/07/2023 (Approximate), Expi res: 07/09/2024 Start: 10-07-2023 End: 07-09-2024 Comprehensive metabolic 2000 panel - Serum or Plasma COMP METABOLIC PANEL Lab Routine Elevated LFTs Expected: 10/07/2023 (Approximate), Expires: 07/09/2024 [facility] Work Phone: Comment on above: Expected: 10/07/2023 (Approximate), Expi res: 07/09/2024 Start: 10-07-2023 End: 07-09-2024 Erythrocyte sedimentation rate SED RATE WESTERGREN Lab Routine Elevated sed rate Elevated C-reactive protein (CRP) Expected: 10/07/2023 (Approximate), Expires: 07/09/2024 [facility] Work Phone: Comment on above: Expected: 10/07/2023 (Approximate), Expi res: 07/09/2024 Start: 08-02-2023 End: 08-02-2023 Patient encounter procedure 08/02/2023 8:45 AM EST [facility] [facility] [address] [place] [phone] Rafaela Cash PA [address] [place], [place] [id number] [facility] Start: 07-13-2023 End: 07-13-2023 Admission to same day surgery center 07/13/2023 10:54 AM EST - 07/13/2023 11:00 AM EST Surgery [facility] [address] [place] [phone] Sky Hemphill MD [address] [place], [place] [id number] INJECTION BURSA INTERMEDIATE Left Wrist [ (CPT )] [facility] Comment on above: INJECTION BURSA INTERMEDIATE Left Wrist [ (CPT )] Start: 07-13-2023 End: 07-13-2023 Arthrocentesis aspir&/inj interm jt/burs w/o us INJECTION BURSA INTERMEDIATE Localized primary osteoarthritis of left wrist 07/13/2023 10:54 AM EST [facility] Start: 07-13-2023 Subsequent hospital visit by physician 07/13/2023 10:54 AM EST Hospital Encounter [facility] [address] [place] [phone] Sky Hemphill MD [address] [place] [id number] [facility] - [facility] Procedures Start: 07-03-2023 End: 07-03-2023 Patient encounter procedure 07/03/2023 11:15 AM EST Office Visit [facility] [address] [place] [phone] Rafaela Cash PA [address] [place], [place] [phone] [facility] Start: 06-04-2023 Behavioral Health Screening Behavioral Health Screening [facility] Start: 06-04-2023 Depression Assessment Depression Assessment [facility] Start: 02-02-2023 Influenza vaccination [facility] Start: 11-10-2022 Adult depression screening assessment DEPRESSION SCREENING [facility] Start: 06-04-2022 DEPRESSION ASSESSMENT DEPRESSION ASSESSMENT [facility] Start: 03-04-2022 End: 12-02-2022 25-hydroxyvitamin D3 [Mass/volume] in Serum or Plasma VITAMIN D 25 HYDROXY Lab Routine Vitamin D deficiency Expected: 03/04/2022 (Approximate), Expires: 12/02/2022 [facility] Work Phone: Comment on above: Expected: 03/04/2022 (Approximate), Expi res: 12/02/2022 Start: 03-04-2022 End: 12-02-2022 BLOOD TB SCREEN BLOOD TB SCREEN Lab Routine Screening-pulmonary TB Expected: 03/04/2022 (Approximate), Expires: 12/02/2022 [facility] Work Phone: Comment on above: Expected: 03/04/2022 (Approximate), Expi res: 12/02/2022 Start: 03-04-2022 End: 12-02-2022 C reactive protein [Mass/volume] in Serum or Plasma C-REACTIVE PROTEIN (CRP) Lab Routine Elevated sed rate Elevated C-reactive protein (CRP) Expected: 03/04/2022 (Approximate), Expires: 12/02/2022 [facility] Work Phone: Comment on above: Expected: 03/04/2022 (Approximate), Expi res: 12/02/2022 Start: 03-04-2022 End: 12-02-2022 CBC panel - Blood by Automated count CBC Lab Routine Anemia of chronic disease Expected: 03/04/2022 (Approximate), Expires: 12/02/2022 [facility] Work Phone: Comment on above: Expected: 03/04/2022 (Approximate), Expi res: 12/02/2022 Start: 03-04-2022 End: 12-02-2022 Cobalamin (Vitamin B12) [Mass/volume] in Serum or Plasma VITAMIN B12 BLOOD Lab Routine Vitamin B12 deficiency Expected: 03/04/2022 (Approximate), Expires: 12/02/2022 [facility] Work Phone: Comment on above: Expected: 03/04/2022 (Approximate), Expi res: 12/02/2022 Start: 03-04-2022 End: 12-02-2022 Comprehensive metabolic 2000 panel - Serum or Plasma COMP METABOLIC PANEL Lab Routine Elevated LFTs Expected: 03/04/2022 (Approximate), Expires: 12/02/2022 [facility] Work Phone: Comment on above: Expected: 03/04/2022 (Approximate), Expi res: 12/02/2022 Start: 03-04-2022 End: 12-02-2022 Erythrocyte sedimentation rate SED RATE WESTERGREN Lab Routine Elevated sed rate Elevated C-reactive protein (CRP) Expected: 03/04/2022 (Approximate), Expires: 12/02/2022 [facility] Work Phone: Comment on above: Expected: 03/04/2022 (Approximate), Expi res: 12/02/2022 Start: 02-17-2022 Screening for malignant neoplasm of colon [facility] Start: 02-02-2022 Influenza vaccination [facility] Start: 01-17-2022 Adult depression screening assessment DEPRESSION SCREENING [facility] Start: 06-04-2021 DEPRESSION ASSESSMENT DEPRESSION ASSESSMENT [facility] Start: 2020 RSV Vaccine (1 - 1-dose 60+ series) RSV Vaccine (1 - 1-dose 60+ series) [facility] Start: 2020 RSV Vaccine (1 - Risk 60-74 years 1-dose series) RSV Vaccine (1 - Risk 60-74 years 1-dose series) [facility] Start: 02-07-2010 Administration of varicella zoster vaccine Zoster (Shingles) Vaccine (1 of 2) [facility] [employer] [facility] Start: 11-02-2008 Medicare Annual Wellness Visit Medicare Annual Wellness Visit [facility] Start: 02-07-2005 COLOGUARD (FIT-DNA) COLOGUARD (FIT-DNA) [facility] Start: 02-07-2005 Colonoscopy COLONOSCOPY [facility] Start: 02-07-2005 COLORECTAL CANCER SCREENING COLORECTAL CANCER SCREENING [facility] Start: 02-07-[address] COLONOGRAPHY [facility] Start: 02-07-2005 FECAL OCCULT BLOOD FECAL OCCULT BLOOD [facility] Start: 02-07-2005 Lipid 1996 panel - Serum or Plasma Lipid Screening [facility] Start: 02-07-2005 Lipid panel Lipid Screening [facility] Start: 02-07-2005 LIPID SCREEN LIPID SCREEN [facility] Start: 02-07-2005 Screening for malignant neoplasm of colon [facility] Start: 02-07-2005 SIGMOIDOSCOPY SIGMOIDOSCOPY [facility] Start: 2000 Mammography [facility] Start: 2000 Screening for malignant neoplasm of breast Mammogram Screening [facility] Start: 02-07-1990 HPV TESTING HPV TESTING [facility] Start: 02-07-1990 Screening for malignant neoplasm of cervix HPV Testing [facility] Start: 02-07-1981 PAP TESTING PAP TESTING [facility] Start: 02-07-1981 Screening for malignant neoplasm of cervix [facility] Start: 02-07-1979 DTaP,Tdap and Td Vaccines (1 - Tdap) DTaP,Tdap and Td Vaccines (1 - Tdap) [facility] Start: 02-07-1979 Pneumococcal Vaccine: 50+ (1 of 2 - PCV) Pneumococcal Vaccine: 50+ (1 of 2 - PCV) [facility] Start: 02-07-1979 SHINGRIX VACCINE (1 of 2) SHINGRIX VACCINE (1 of 2) [facility] Start: 02-07-1979 Urine microalbumin profile [facility] Start: 02-07-1978 Adult BMI Follow Up Plan Adult BMI Follow Up Plan [facility] Start: 02-07-1978 ANNUAL PCP TEAM CHRONIC DISEASE VISIT ANNUAL PCP TEAM CHRONIC DISEASE VISIT [facility] Start: 02-07-1978 Anxiety Screening Anxiety Screening [facility] Start: 02-07-1978 BP CONTROLLED (<130/80) BP CONTROLLED (<130/80) [facility] Start: 02-07-1978 Depression Screening Depression Screening [facility] Start: 02-07-1978 Diabetic foot examination Diabetic Foot Exam [facility] Start: 02-07-1978 HIV SCREENING HIV SCREENING [facility] Start: 02-07-1978 HIV screening HIV Screening [facility] Start: 1972 Depression Screening Depression Screening [facility] Start: 02-07-1971 Screening for malignant neoplasm of cervix Cervical Cancer Screening [facility] Start: 02-07-1966 PNEUMOCOCCAL (1 - PCV) PNEUMOCOCCAL (1 - PCV) [facility] Start: 02-07-1966 Pneumococcal vaccination [facility] Start: 02-07-1965 COVID-19 VACCINE (#1) COVID-19 VACCINE (#1) [facility] Start: 1960 COVID-19 VACCINE (#1) COVID-19 VACCINE (#1) [facility] Start: 1960 Glaucoma screening Diabetic Ophthalmology Exam [facility] Start: 1960 Statin Use: Diabetic Statin Use: Diabetic [facility] Start: 1960 Urine screening for protein Urine Microalbumin [facility] End: 12-31-2025 BD DXA TRABECULAR BONE SCORE (TBS) BD DXA TRABECULAR BONE SCORE (TBS) Radiology Routine Steroid-induced osteoporosis 1 Occurrences starting 12/01/2024 until 12/31/2025 [facility] Comment on above: 1 Occurrences starting 12/01/2024 until 12/31/2025 Cologuard [facility] Cologuar d [facility] Lab Routine Encounter for screening for malignant neoplasm of colon Ordered: 03/13/2024 [employer] Work Phone: Comment on above: Ordered: 03/13/2024 Dstr nrolytc agnt parverteb fct sngl lmbr/sacral RADIOFREQUENCY ABLATION SPINAL Lumbosacral spondylosis without myelopathy [facility] End: 12-31-2025 DXA Skeletal system.axial Views for bone density DXA-AXIAL SKELETON Radiology Routine Steroid-induced osteoporosis 1 Occurrences starting 12/01/2024 until 12/31/2025 [facility] Comment on above: 1 Occurrences starting 12/01/2024 until 12/31/2025 End: 12-31-2025 DXA-FOREARM SKELETON DXA-FOREARM SKELETON Radiology Routine Steroid-induced osteoporosis 1 Occurrences starting 12/01/2024 until 12/31/2025 [facility] Work Phone: Comment on above: 1 Occurrences starting 12/01/2024 until 12/31/2025 End: 12-24-2024 MR Cervical spine WO contrast MR cervical spine without contrast Imaging Routine Neck pain 1 Occurrences starting 12/25/2023 until 12/24/2024 [employer] Work Phone: Comment on above: 1 Occurrences starting 12/25/2023 until 12/24/2024 End: 09-23-2025 MR Thoracic spine WO contrast MR thoracic spine without contrast Imaging Routine Disc displacement, thoracic 1 Occurrences starting 09/23/2024 until 09/23/2025 [employer] Work Phone: Comment on above: 1 Occurrences starting 09/23/2024 until 09/23/2025 End: 04-28-2025 US Upper extremity - left US HAND/WRIST SYNOVIAL SCREEN LEFT Radiology Routine Bilateral hand pain 1 Occurrences starting 03/29/2024 until 04/28/2025 [facility] Comment on above: 1 Occurrences starting 03/29/2024 until 04/28/2025 End: 04-28-2025 US Upper extremity - right US HAND/WRIST SYNOVIAL SCREEN RIGHT Radiology Routine Bilateral hand pain 1 Occurrences starting 03/29/2024 until 04/28/2025 [facility] Comment on above: 1 Occurrences starting 03/29/2024 until 04/28/2025 End: 04-28-2024 XR Hand - bilateral PA and Lateral and Oblique XR HAND GENERAL 3V PA/LAT/OBL BILATERAL Radiology Routine Bilateral hand pain 1 Occurrences starting 03/29/2024 until 04/28/2024 [facility] Work Phone: Comment on above: 1 Occurrences starting 03/29/2024 until 04/28/2024 [facility] Payers Date Payer Category Payer Blue Cross Blue Shield [id number] [id number] 2012 Blue Cross Blue Shie ld Managed Care - Other [id number] 2012 Unknown LAURIE TAYLOR BC BS FEP PPO [id number] 2012-Present [phone] [address] [place] [address] PPO [id number] 2012 Unknown [id number] [id number] .[id number] 2012 Blue Cross Blue Shield [id number] 2008 Medicare MEDICARE MEDICAR E A AND B [id number] 2008-Present [phone] [address] [address] [place] [address] Medicare [id number] 2007 Medicare [id number] .[id number] 2007 Medicare [id number] 2.16.840.1.063141.19 1960 Unknown [id number] 2.16.840.1.780286.3.579.2 .1286 1960 Unknown [id number] 2.16.840.1.113882.3.579.2 .1286 1960 Unknown [id number] 2.16.840.1.074850.3.579.2 .1285 1960 Unknown [id number] 2.16.840.1.527731.3.579.2 .1285 1960 Unknown [id number] 2.16.840.1.049514.3.579.2 .1285 1960 Unknown [id number] 2.16.840.1.106302.3.579.2 .9 1960 Unknown [id number] 2.16.840.1.545278.3.579.2 .1258 1960 Unknown [id number] 2.16.840.1.066661.3.579.2 .1258 1960 Unknown [id number] 2.16.840.1.538379.3.579.2 .1258 1960 Unknown [id number] 2.16.840.1.926477.3.579.2 .1258 1960 Unknown [id number] 2.16.840.1.028161.3.579.2 .1258 1960 Unknown [id number] 2.16.840.1.701870.3.579.2 .128 1960 Unknown [id number] 2.16.840.1.557637.3.579.2 .1285 1960 Unknown [id number] 2.16.840.1.757498.3.579.2 .1285 1960 Unknown [id number] 2.16.840.1.554041.3.579.2 .1285 1960 Unknown [id number] 2.16.840.1.688840.3.579.2 .1285 1960 Unknown [id number] 2.16.840.1.414397.3.579.2 .1286 1960 Unknown [id number] 2.16.840.1.684433.3.579.2 .1286 1960 Unknown [id number] 2.16.840.1.343534.3.579.2 .128 1960 Unknown [id number] 2.16.840.1.283419.3.579.2 .128 1960 Unknown [id number] 2.16.840.1.638579.3.579.2 .128 1960 Unknown [id number] 2.16.840.1.799547.3.579.2 .128 1960 Unknown [id number] 2.16.840.1.106380.3.579.2 .128 1960 Unknown [id number] 2.16.840.1.919482.3.579.2 .128 1960 Unknown [id number] 2.16.840.1.290645.3.579.2 .128 1960 Unknown [id number] 2.16.840.1.290076.3.579.2 .1285 1960 Unknown [id number] 2.16.840.1.873099.3.579.2 .1286 1960 Unknown [id number] 2.16.840.1.775504.3.579.2 .128 1960 Unknown [id number] 2.16.840.1.641786.3.579.2 .128 1960 Unknown [id number] 2.16.840.1.072934.3.579.2 .1285 1960 Unknown [id number] 2.16.840.1.262737.3.579.2 .128 1960 Unknown [id number] 2.16.840.1.907630.3.579.2 .1285 1960 Unknown [id number] 2.16.840.1.949637.3.579.2 .1285 1960 Unknown [id number] 2.16.840.1.168339.3.579.2 .1285 1960 Unknown [id number] 2.16.840.1.801960.3.579.2 .1285 1960 Unknown [id number] 2.16.840.1.853384.3.579.2 .1285 1960 Unknown [id number] 2.16.840.1.997668.3.579.2 .1285 1960 Unknown [id number] 2.16.840.1.513743.3.579.2 .1285 1960 Unknown [id number] 2.16.840.1.772027.3.579.2 .1285 1960 Unknown [id number] 2.16.840.1.599930.3.579.2 .1285 1960 Unknown [id number] 2.16.840.1.585199.3.579.2 .1285 1960 Unknown [id number] 2.16.840.1.805383.3.579.2 .1285 1960 Unknown [id number] 2.16.840.1.466768.3.579.2 .1285 1960 Unknown [id number] 2.16.840.1.729772.3.579.2 .1285 1960 Unknown [id number] 2.16.840.1.732735.3.579.2 .1286 Social History Date Type Detail Facility Start: 04-29-2013 End: 05-12-2013 Tobacco smoking status TNIS Never smoked tobacco [facility] Work Phone: Start: 04-29-2013 End: 05-12-2013 Tobacco use and exposure Smokeless tobacco non-user [facility] Work Phone: Start: 01-19-2021 End: 12-01-2024 Alcohol intake Current non-drinker of alcohol (finding) [facility] Start: 1960 Sex Assigned At Not on file [facility] Start: 1960 Sex Assigned At Female [facility] Start: 08-28-2022 End: 04-06-2023 History of Social function [facility] Start: 08-28-2022 End: 04-06-2023 Tobacco use panel [facility] Start: 05-05-2012 Adult Depression Screening Assessment 2 [facility] Start: 04-19-2020 Gender identity Identifies as female gender (finding) [facility] Start: 11-10-2021 Sexual orientation Heterosexual (finding) [facility] Start: 04-23-2024 End: 01-01-2025 Alcoholic beverage intake Ex-drinker (finding) [facility] Within the last year , have you been afraid of your partner or ex-partner? No [facility] Are you now , , , , never or living with a partner? [facility] How often to you hav e a drink containing alcohol? Never [facility] How hard is it for y ou to pay for the very basics like food, housing, medical care, and heating Not very hard [facility] Do you feel stress - tense, restless, nervous, or anxious, or unable to sleep at night because your mind is troubled all the time - these days [OSQ] Only a little [facility] (I/We) worried wheth er (my/our) food would run out before (I/we) got money to buy more. Never true [facility] Start: 04-23-2024 Alcohol Comment No alchohol since 2009 [facility] How hard is it for y ou to pay for the very basics like food, housing, medical care, and heating Somewhat hard [employer] [facility] Start: 11-30-2016 Alcohol Comment stopped 6-7 years ago [employer] [facility] [facility] Start: 01-07-2015 [facility] (finding[facility] Procedure Code Equipment Code Equipment Origin al Text Equipment Identifier Dates Shell Actb 50mm Prim Hmsphr Ch - [id number] Start: 05-19-2013 Ins Actb 32mm 0d X3 [facility] - [id number] Start: 05-19-2013 Head V40 Fem Hip 32mm +4mm Blx - [id number] Start: 05-19-2013 Shell Actb 52mm Prim Hmsphr Ch - [id number] Start: 09-17-2013 Ins Actb 32mm 0d X3 Trdnt - [id number] Start: 09-17-2013 Head Fem 32mm V4 0 Blx D - [id number] Start: 09-17-2013 Fem Stem Acclde 2 Sz 3 127 Deg - [id number] Start: 05-19-2013 Fem Stem Acclde 2 Sz 3 127 Deg - [id number] Start: 09-17-2013 Screw Bn 6.5mm 2 5mm Trdnt - [id number] Start: 05-19-2013 Screw Bn 6.5mm 2 5mm Trdnt - [id number] Start: 09-17-2013 Test daily and a s needed [id number] Start: 02-11-2024 Test daily and a s needed [id number] Start: 02-11-2024 Functional Status Date Assessment Result Facility 10-28-2014 Are you deaf, or do you have serious difficulty hearing No 10/28/2014 10:37 AM Diane Lira, Research Coordinator No [facility] 10-28-2014 Are you blind, or do you have serious difficulty seeing, even when wearing glasses No 10/28/2014 10:37 AM Diane Lira, Research Coordinator No [facility] 10-28-2014 Do you have serious difficulty walking or climbing stairs Yes 10/28/2014 10:37 AM Diane Lira, Research Coordinator Yes [facility] 10-28-2014 Do you have difficul ty dressing or bathing Yes 10/28/2014 10:37 AM Diane Lira, Research Coordinator Yes [facility] 10-28-2014 Because of a physica l, mental, or emotional condition, do you have difficulty doing errands alone such as visiting a physician's office or shopping Yes 10/28/2014 10:37 AM Diane Lira, Research Coordinator Yes [facility] Mental Status Date Assessment Result Facility 10-28-2014 Because of a physica l, mental, or emotional condition, do you have serious difficulty concentrating, remembering, or making decisions No 10/28/2014 10:37 AM EDT Diane Dyson, Research Coordinator No [facility] Clinical Notes 11-07-2021 to 01-15-2025 Cindy Mendoza - 01/15/2025 12:21 PM Alan Johnson MD - 01/14/2025 9:40 AM AMEYA Carreon - 01/01/2025 9:15 AM EDTPatient LauraBlessing Meléndez - 12/19/2024 10:52 AM EDT Note Date & Type Note Facility 01-15-2025 History of Present illness Narrative [facility] Assessment Medication(s): Enbrel Patient's current medication list and adherence status to current therapy were reviewed by Specialty Pharmacy clinical pharmacist to identify any new drug interactions or non-compliance to therapy. Therapy continues to be appropriate for disease, patient response, and medical condition. Verification of therapeutic benefit and effectiveness with current therapy was completed. Adverse events, barriers in adherence, and side effects were assessed and addressed if applicable. Will proceed with refill with no changes in therapy - patient progressing towards achieving therapeutic goals based on medication-specific laboratory parameters, disease state markers and outcomes. Office/provider notes have been reviewed prior to dispensing the medication. 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 Med/dose confirmed: Yes Supplies needed: No supplies needed Missed doses: No Estimated days supply on hand: 1 Next cycle/dose due: 01/20/25 Copay amount: 0 Payment confirmed: Yes Delivery method: FedEx Signature required: No Delivery address: [address] [place] [address], [address], [facility] [address] Delivery date: 01/20/25 Questions or concerns for the pharmacist?: No Did you have any side effects believed to be related to this medication, that resulted in hospitalization?: No Current Outpatient Medications on File Prior to Visit Medication Sig predniSONE (DELTASONE) 5 mg tablet Day 1=6tabs with food, Day 2=5tabs, Day 3=4tabs, Day 4=3tabs, Day 5=2tabs, then 1tab daily thereafter if needed No NSAIDs on med amitriptyline (ELAVIL) 25 mg tablet Take 2 tablets by mouth daily at bedtime. colchicine 0.6 mg tablet Take 1tab by mouth up to twice a day as tolerated. May cause diarrhea. cyclobenzaprine (FLEXERIL) 10 mg tablet Take 1-2tabs 3times a day gabapentin (NEURONTIN) 600 mg tablet Take 4caps by mouth per day Etanercept (ENBREL SURECLICK) 50 mg/mL (1 mL) Inject 50mg (1 pen) subcutaneously once a week. Hold if ill or on antibiotics. No LIVE vaccines. lisinopril (ZESTRIL) 40 mg tablet Take 1 tablet by mouth every afternoon. omeprazole (PRILOSEC) 20 mg capsule Take 1 capsule by mouth two times a day. acyclovir (ZOVIRAX) 400 mg tablet take 1 tablet by mouth twice a day glimepiride (AMARYL) 1 mg tablet therapeutic multivitamin (THERA VITAMIN) tablet Take 1 tablet by mouth every morning. Biotin 10,000 mcg cap Take by mouth twice daily. HYDROcodone-acetaminophen (NORCO) 5-325 mg per tablet Take 1 tablet by mouth every 8 hours as needed. No current facility-administered medications on file prior to visit. [facility] CLINICAL ASSESSMENT - INFLAMMATORY CONDITIONS V6: Assessment to use: Refill Date of influenza vaccination reminder: 07/14/2024 Date of most recent vaccination assessment: 07/14/2024 Treatment Plan Information: Enbrel Inject 50mg (1 pen) subcutaneously once a week. Hold if ill or on antibiotics. No LIVE vaccines. Est. Tx Plan Start Date: 07/15/2024 Estimated Start Date Info: No information available Est. Estimated Treatment Duration: Until lack of efficacy Cindy Mendoza documented in this encounter [facility] 01-15-2025 Note HNO ID: [id number] Author: ?, ?, ? Service: ? Author Type: ? Type: Progress Notes Filed: 01/15/2025 13:26 Note Text: [facility] Assessment Medication(s): Enbrel Patient's current medication list and adherence status to current therapy were reviewed by Specialty Pharmacy clinical pharmacist to identify any new drug interactions or non-compliance to therapy. Therapy continues to be appropriate for disease, patient response, and medical condition. Verification of therapeutic benefit and effectiveness with current therapy was completed. Adverse events, barriers in adherence, and side effects were assessed and addressed if applicable. Will proceed with refill with no changes in therapy - patient progressing towards achieving therapeutic goals based on medication-specific laboratory parameters, disease state markers and outcomes. Office/provider notes have been reviewed prior to dispensing the medication. 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 Med/dose confirmed: Yes Supplies needed: No supplies needed Missed doses: No Estimated days supply on hand: 1 Next cycle/dose due: 01/20/25 Copay amount: 0 Payment confirmed: Yes Delivery method: FedEx Signature required: No Delivery address: [address] [place] [address], [facility], [address], [facility] [id number] Delivery date: 01/20/25 Questions or concerns for the pharmacist?: No Did you have any side effects believed to be related to this medication, that resulted in hospitalization?: No Current Outpatient Medications on File Prior to Visit Medication Sig predniSONE (DELTASONE) 5 mg tablet Day 1=6tabs with food, Day 2=5tabs, Day 3=4tabs, Day 4=3tabs, Day 5=2tabs, then 1tab daily thereafter if needed No NSAIDs on med amitriptyline (ELAVIL) 25 mg tablet Take 2 tablets by mouth daily at bedtime. colchicine 0.6 mg tablet Take 1tab by mouth up to twice a day as tolerated. May cause diarrhea. cyclobenzaprine (FLEXERIL) 10 mg tablet Take 1-2tabs 3times a day gabapentin (NEURONTIN) 600 mg tablet Take 4caps by mouth per day Etanercept (ENBREL SURECLICK) 50 mg/mL (1 mL) Inject 50mg (1 pen) subcutaneously once a week. Hold if ill or on antibiotics. No LIVE vaccines. lisinopril (ZESTRIL) 40 mg tablet Take 1 tablet by mouth every afternoon. omeprazole (PRILOSEC) 20 mg capsule Take 1 capsule by mouth two times a day. acyclovir (ZOVIRAX) 400 mg tablet take 1 tablet by mouth twice a day glimepiride (AMARYL) 1 mg tablet therapeutic multivitamin (THERA VITAMIN) tablet Take 1 tablet by mouth every morning. Biotin 10,000 mcg cap Take by mouth twice daily. HYDROcodone-acetaminophen (NORCO) 5-325 mg per tablet Take 1 tablet by mouth every 8 hours as needed. No current facility-administered medications on file prior to visit. [facility] CLINICAL ASSESSMENT - INFLAMMATORY CONDITIONS V6: Assessment to use: Refill Date of influenza vaccination reminder: 07/14/2024 Date of most recent vaccination assessment: 07/14/2024 Treatment Plan Information: Enbrel Inject 50mg (1 pen) subcutaneously once a week. Hold if ill or on antibiotics. No LIVE vaccines. Est. Tx Plan Start Date: 07/15/2024 Estimated Start Date Info: No information available Est. Estimated Treatment Duration: Until lack of efficacy Cindy Mendoza [facility] 01-14-2025 History of Present illness Narrative Images from the original note were not included. Subjective Rhona Garcia is a 64 y.o. female who presents for follow up for memory issues and lightheaded episodes. Patient is present for a scheduled televisit. They have provided verbal consent to proceed with the virtual encounter. At the time of the visit, the patient is located at home and confirms they are in a private setting appropriate for a medical evaluation. Time: 9:40 to 10;00 pm. Medical decision making was used for level of difficulty and not time History of Present Illness The patient is a 64-year-old female who presents for lightheadedness, memory issues, and balance issues. She reports no current health issues but notes that her condition improves with good weather and deteriorates during inclement weather. Sleep is often disrupted by her pet dog, which affects her energy levels. She has tried modafinil, but it was ineffective and costly. She experiences daily episodes of lightheadedness and fainting, which are more severe when standing. These episodes can last from a few seconds to several hours. She describes these episodes as a loss of vision, hallie to the lights going out. Sitting down seems to alleviate these symptoms. Tunnel vision is also reported during these episodes. She has undergone an EEG in the past and a tilt table test at the [facility] some time ago. She expresses concern about potential memory issues, as she often finds herself running out of household supplies like paper products and food, even though she does not recall using them. SOCIAL HISTORY: Sleep: Disrupted by pet dog MEDICATIONS PREVIOUS MEDS: Modafinil Reason for Discontinuation: It was kind of expensive for the results. Review of Systems Const: Denies appetite change, fever, chills. Allergy: Denies medication reaction. Ocular: Denies visual acuity change. ENT: Denies hearing change. Endoc: Denies weight loss. Resp: Denies dyspnoea, wheezing. Cardiac: Denies angina, palpitations. GI: Denies nausea, vomiting. Haem: Denies bleeding. : Denies incontinence. MSK: Denies arthralgias, joint oedema. Derm: Denies rash, hair loss. Neuro: Denies ataxia, tremor. Also see HPI for elements of ROS documented therein and for details of positive findings, which shall supersede the foregoing. Objective There were no vitals taken for this visit. Physical Exam Assessment & Plan 1. Lightheadedness. She reports experiencing episodes of lightheadedness and feeling like she might pass out, which occur multiple times a day. These episodes are sometimes accompanied by tunnel vision. An EEG will be ordered to update her brain wave test. A tilt table test may also be repeated if the initial treatment does not yield significant improvement. Fludrocortisone will be prescribed to be taken at bedtime to see if it helps prevent these episodes. The prescription will be sent to [facility] pharmacy. 2. Memory issues. She reports concerns about potential memory issues, including instances where items in her house seem to be missing. A brain mapping test will be conducted to assess her memory function and rule out any underlying memory issues. 3. Balance issues. She reports having terrible balance, which is a significant concern for her. This will be monitored, and further evaluation may be considered based on the results of the EEG and brain mapping tests. 4. I will obtain an EEG to assess for seizure or epileptiform activity which may explain the patient episodes and symptoms. 5. I will order neural scan to identify root cause of memory loss using EEG technology to map brain activity and to detect biomarkers that predict brain functionality in addition measuring other cognitive disorders, sleep disorders, depression and other stress related neurological conditions. 6. I will order vital scan to evaluate for peripheral neuropathy, cardiovascular disease, peripheral artery disease, sudomotor dysfunction, endothelial dysfunction, autonomic dysfunctions including orthostatic hypotension and determining etiology of syncope. Follow-up A follow-up appointment will be scheduled after the completion of the tests. This clinical note was created utilizing [facility] system. All information has been thoroughly reviewed, corrected as necessary, and authenticated by the provider to ensure accuracy and completeness. On occasion, [employer] ambient documentation system erroneously drops words or replaces a spoken word with a similar sounding word. Please notify with any questions or concerns regarding this clinical note. Answers submitted by the patient for this visit: Neurological Problem Questionnaire (Submitted on 01/14/2025) Chief Complaint: Neurologic complaint clumsiness: Yes altered mental status: Yes loss of balance: Yes focal sensory loss: Yes memory loss: Yes visual change: Yes focal weakness: Yes Chronicity: chronic Onset: more than 1 year ago Onset quality: gradually Progression since onset: waxing and waning Focality: lower extremity, upper extremity aura: No bladder incontinence: No bowel incontinence: No auditory change: No Treatments tried: acetaminophen, drinking, eating, medication, neck support, position change, sleep, sugar/glucose, walking Improvement on treatment: mild documented in this encounter [facility] 01-01-2025 History of Present illness Narrative [facility] [address] [place] [address] Patient: Rhona Garcia Sex: female : 1960 Age: 64 y.o. PCP: Parish Dean APRN-VETERINARY ASSISTANT 01/01/2025 Rhona Garcia is here for a(n) post procedure follow up 12/19/24 Bilateral First CMC joint injection with 100% relief pain until today. Preop pain 7/10 post proc 0/10 until today is 8/10. . Patient also here to review left elbow xray. She reports increased pain in her Date of onset of pain: chronic , pain has lasted greater than 3 months. Pain scale before treatment: 8/10 Pre-op pain score: 8/10 Post-op pain score: 0/10 2 hour post-op pain score: 0/10 4 hour post-op pain score: 0/10 Percentage and duration of relief after treatment: see above Pain scale after treatment: pain increased to 8/10 current this morning Chief Complaint Patient presents with Neck Pain Back Pain Wrist Pain Left 1st cmc HPI: PT/HEP 2018 Back: 06/21/18 oswaldo SI joint injection with no relief on left 75% temporary relief on right. Right SI RFA 01/09/2020 with no relief. 10/15/20 Right SI RFA with 75% relief 03/04/21 RFA Left L 4/5, 5/1 with 50% relief currently. 12/27/18 Caudal not helpful. left lumbar RFA w/75% relief Right SI joint injection on 04/22/2021 with 80% relief then went down to 50% relief. 05/23/21 Right RFA L 4/5, 5/1 with 50% relief. 02/17/22 Caudal with no relief reported. 08/26/2021 Right SI injection w/ 50% Right SI joint injection 03/17/2022 50% relief. 10/27/2022 Right Sacroiliac Injection with 75% relief continuing Right SI joint injection on 06/16/2022 with at least 50% relief. 07/21/22 Rt L 4/5 5/ RFA w/50% relief pre-proc pain pre-proc pain 7/10 post proc / until Jul 2023 08/04/22 Lt L 4/5 5/ RFA w/50% relief pre-proc pain 8/10 post proc pain 4/10 until Jul 2023 01/26/23 Oswaldo SI Inj w/80% relief continued 07/19/2022 Bilateral Sacroiliac Joint injection with 85% relief x 2 hours, and 50% relief continuing today Bilateral SI joint injection 05/18/23 with 85% relief for 2 hours and 50% continued relief. 08/24/2023 Left L4/5, 5/1 Radio Frequency Ablation with 80% relief continuing. Pre procedure pain 8/10. Post procedure pain 2/10 10/12/2023 Right L4/5, 5/1 Radio Frequency Ablation with 65% relief continuing. Pre procedure pain 8/10. Post procedure pain 3/10 10/31/24 right C56 NR injection with 80% relief followed by 75% relief that continues today Thumb: 09/22/22 Left CMC joint injection with 90% relief 01/18/24 First CMC joint injection with 90% relief that continues pre proc 6/10 post proc 1/10 09/05/24 Bilateral First CMC joint injection with 80% relief pre-proc pain 7/10 post proc 2/10 12/19/24 Bilateral First CMC joint injection with 100% relief pain until today. Preop pain 7/10 post proc 0/10 until today is 8/10 Wrist 04/06/2023 left wrist injection with 50% relief that continues left wrist injection on 07/13/2023 with 80% relief. Pre-procedural pain was reported as 6/10 post proc pain is 2/10 Neck: 06/08/19 Left C5/6,6/7, 7/1 no relief. JOANNE C / on 07/16/20 w/75% relief. 02/29/2024 C JOANNE with 10% relief reported. Pre proc was 8/10 post proc and currently 12/1104/11/24 left C5/6 6/7 MBB with 80% relief x1 week. 06/06/2024 Left C 5/6 6/7 MBB with 80% relief for 3 hours Pre-op pain score: 8/10 Post-op pain score: 2/10 1 hour post: 210 2 hour post: 07/14 4 hour post: 08/11 Right C56 NR injection with 80% relief followed by 75% relief that continues today. Pre proc pain 5/10 post proc 1-07/14 Shoulder right shoulder injection on 11/30/2023 with at least 80% relief. 10/03/24 right shoulder injection 80% relief that continues Neck Pain This is a chronic problem. The current episode started more than 1 year ago. The problem occurs intermittently. The problem has been gradually improving (since NR). The pain is associated with nothing. The pain is present in the midline and left side (left shoulder and left arm, elbow and wrist). The quality of the pain is described as aching, burning and stabbing. The pain is at a severity of 6/10. The pain is moderate. The symptoms are aggravated by coughing, position, stress, sneezing, swallowing, twisting and bending. Worse during: left side of neck is 9/10. Stiffness is present All day, in the morning and at night. Associated symptoms include weakness (BUE). Pertinent negatives include no chest pain, fever, headaches, leg pain, numbness or photophobia. She has tried acetaminophen, muscle relaxants and home exercises for the symptoms. The treatment provided mild relief. Back Pain This is a chronic problem. The current episode started more than 1 year ago (early ). The problem occurs constantly. The problem is unchanged. The pain is present in the sacro-iliac, lumbar spine and gluteal (across). The quality of the pain is described as aching. The pain does not radiate. The pain is at a severity of 3/10 (up to 7/10). The pain is moderate. The pain is The same all the time. Exacerbated by: prolonged standing, walking and sitting ; lying down, stairs, bending, twisting, pushing/pulliing, cough/sneeze, transitioing, cold/heat Stiffness is present All day (varies with activity). Associated symptoms include weakness (BUE). Pertinent negatives include no bladder incontinence, bowel incontinence, chest pain, fever, headaches, leg pain or numbness. Risk factors include sedentary lifestyle. Treatments tried: PT/HEP 2019 w/no relief, NSAIDsx3 (naproxen, motrin, ibuprofen), heat, Flexeril, Neurontin, Elavil & [place] w/ some relief, OTC Arnica cream w/ mod relief. The treatment provided moderate relief. Wrist Pain The pain is present in the left wrist, right wrist, left hand, right hand, right fingers, left fingers and left elbow (L>R). This is a chronic problem. The current episode started more than 1 year ago. There has been no history of extremity trauma. The problem occurs constantly. The problem has been gradually worsening. The quality of the pain is described as aching. The pain is at a severity of 8/10 (left wrist 6/10, right wrist 3/10 left elbow 9/10 left hand 9/10). The pain is moderate. Pertinent negatives include no fever or numbness. The symptoms are aggravated by activity and contact. She has tried NSAIDS, heat and acetaminophen for the symptoms. The treatment provided mild relief. The effect of pain on patient's ADLS: Moderate Impairment. Past Medical History: Diagnosis Date Allergic 2005 Anemia 1970 Ankylosing spondylitis ([facility]) Asthma 1965 as a child Astigmatism contacts Back pain 1988 Benign ovarian tumor Carpal tunnel syndrome Cataract 2023 Cervical disc syndrome Chronic musculoskeletal pain Chronic pain disorder Depression 1988 Diabetes mellitus type 2, controlled (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 Fall after dizzy spell GERD (gastroesophageal reflux disease) 1999 Gout Heart palpitations Hypertension 1989 Joint pain Kidney failure Low back pain Lumbar disc disease Migraine 2000 Neck pain Neuropathy Osteoarthritis Pneumonia 1970 Pseudogout of hand bilateral Raynaud's disease Scleroderma (CMS-HCC) Syncope Vertigo Past Surgical History: Procedure Laterality Date CARPAL TUNNEL RELEASE Right EXCISION MASS Left 12/26/2018 Performed by Higinio Okeefe MD at [facility] Right Thumb joint replacement INJECTION BLOCK EPIDURAL CAUDAL STEROID N/A 02/17/2022 Performed by Sky Hemphill MD at [facility] INJECTION BLOCK EPIDURAL CERVICAL/THORACIC: C 12/02 joanne N/A 02/29/2024 Performed by Sky Hemphill MD at [facility] INJECTION BLOCK EPIDURAL CERVICAL/THORACIC: C71 JOANNE N/A 07/16/2020 Performed by Sky Hemphill MD at [facility] INJECTION BLOCK NERVE MEDIAL BRANCH: left C 5/6, 6/7 Left 06/06/2024 Performed by Sky Hemphill MD at [facility] INJECTION BLOCK NERVE MEDIAL BRANCH: left C 5/6, 6/7 Left 04/11/2024 Performed by Sky Hemphill MD at [facility] INJECTION BLOCK NERVE MEDIAL BRANCH: left [id number] Left 06/18/2020 Performed by Sky Hemphill MD at [facility] INJECTION BLOCK SACROILIAC JOINT Bilateral 05/18/2023 Performed by Sky Hemphill MD at [facility] INJECTION BLOCK SACROILIAC JOINT Bilateral 01/26/2023 Performed by Sky Hemphill MD at [facility] INJECTION BLOCK SACROILIAC JOINT Right 10/27/2022 Performed by Sky Hemphill MD at [facility] INJECTION BLOCK SACROILIAC JOINT Right 03/17/2022 Performed by Sky Hemphill MD at [facility] INJECTION BLOCK SACROILIAC JOINT Right 08/26/2021 Performed by Sky Hemphill MD at [facility] INJECTION BLOCK SACROILIAC JOINT Right 04/22/2021 Performed by Sky Hemphill MD at [facility] INJECTION BLOCK SACROILIAC JOINT Right 10/15/2020 Performed by Sky Hemphill MD at [facility] INJECTION BLOCK SACROILIAC JOINT: Right 06/16/2022 Performed by Sky Hemphill MD at [facility] INJECTION BURSA INTERMEDIATE Left Wrist Left 07/13/2023 Performed by Sky Hemphill MD at [facility] INJECTION BURSA INTERMEDIATE Left wrist Left 04/06/2023 Performed by Sky Hemphill MD at [facility] INJECTION BURSA LARGE JOINT: left CMC Left 09/22/2022 Performed by Sky Hemphill MD at [facility] INJECTION BURSA LARGE JOINT: right shoulder Right 10/03/2024 Performed by Sky Hemphill MD at [facility] INJECTION BURSA LARGE JOINT: right shoulder Right 11/30/2023 Performed by Sky Hemphill MD at [facility] INJECTION BURSA LARGE JOINT: right shoulder Right 02/16/2023 Performed by Sky Hemphill MD at [facility] INJECTION BURSA SMALL JOINT Bilat 1st CMC Bilateral 09/05/2024 Performed by Sky Hemphill MD at [facility] INJECTION BURSA SMALL JOINT Left 1st CMC Left 12/19/2024 Performed by Sky Hemphill MD at [facility] INJECTION BURSA SMALL JOINT Left 1st CMC Left 01/18/2024 Performed by Sky Hemphill MD at [facility] INJECTION BURSA SMALL JOINT: wrist injection Left 10/07/2018 Performed by Sky Hemphill MD at [facility] INJECTION CAUDAL EPIDURAL WITH CATHETER, STEROID N/A 2018 Performed by Sky Hemphill MD at [facility] INJECTION LARGE JOINT BURSA: left ankle Left 10/22/2017 Performed by Sky Hemphill MD at [facility] INJECTION MEDIAL BRANCH NERVE BLOCK: left L34 45 51 Left 11/18/2018 Performed by Sky Hemphill MD at [facility] INJECTION SACROILIAC NERVE Bilateral 04/21/2019 Performed by Sky Hemphill MD at [facility] INJECTION SACROILIAC NERVE Left 11/01/2018 Performed by Sky Hemphill MD at [facility] INJECTION SPINE TRANSFORAMINAL: right C 5,6 Nroot Right 10/31/2024 Performed by Sky Hemphill MD at [facility] JOINT REPLACEMENT Bilateral 2012 Both hips RADIO FREQUENCY ABLATION: left L34 45 [id number] Left 12/27/2018 Performed by Sky Hemphill MD at [facility] RADIO FREQUENCY ABLATION: left L34 [id number] Left 10/31/2019 Performed by Sky Hemphill MD at [facility] RADIO FREQUENCY ABLATION: right L34 45 51 Right 10/17/2019 Performed by Sky Hemphill MD at [facility] RADIO FREQUENCY ABLATION: right SI Right 05/16/2019 Performed by Sky Hemphill MD at [facility] RADIO FREQUENCY ABLATION: right SI rfa Right 01/09/2020 Performed by Sky Hemphill MD at [facility] RADIOFREQUENCY ABLATION SPINAL: left C 5/6, 6/7 Left 07/18/2024 Performed by Sky Hemphill MD at [facility] RADIOFREQUENCY ABLATION SPINAL: left L 4/5 5/1 Left 08/04/2022 Performed by Sky Hemphill MD at [facility] RADIOFREQUENCY ABLATION SPINAL: left L 4/5 5/1 Left 03/04/2021 Performed by Sky Hemphill MD at [facility] RADIOFREQUENCY ABLATION SPINAL: left L 4/5, 5/1 Left 08/24/2023 Performed by Sky Hemphill MD at [facility] RADIOFREQUENCY ABLATION SPINAL: right L 4/5 5/1 Right 07/21/2022 Performed by Sky Hemphill MD at [facility] RADIOFREQUENCY ABLATION SPINAL: right L 4/5 5/1 Right 05/23/2021 Performed by Sky Hemphill MD at [facility] RADIOFREQUENCY ABLATION SPINAL: right L 4/5, 5/1 Right 10/12/2023 Performed by Sky Hemphill MD at [facility] RADIOFREQUENCY ABLATION SPINAL: right L34 45 51 Right 05/18/2017 Performed by Sky Hemphill MD at [facility] RADIOFREQUENCY ABLATION SPINAL: right SI Right 11/02/2017 Performed by Sky Hemphill MD at [facility] RADIOFREQUENCY ABLATION SPINAL: Right SI Right 03/05/2017 Performed by Sky Hemphill MD at [facility] RELEASE CARPAL TUNNEL Left 12/26/2018 Performed by Higinio Okeefe MD at [facility] REPAIR TENDON FINGER, 5th finger muscle repair Left 11/22/2020 Performed by Rahat Hirsch MD at [facility] TUBAL LIGATION 2006 Allergies Allergen Reactions Cinnamon Analogues Swelling Throat swells Coconut Swelling Throat swells Sulfa (Sulfonamide Antibiotics) Anaphylaxis ivp dye ok per pt noted for pain clinic House Dust Other reaction(s): Other: See Comments itching eyes, scratchy throat Oxycodone-Acetaminophen Other reaction(s): nightmares Darvocet A500 [Propoxyphene N-Acetaminophen] Other (See Comments) Nightmares Lactase GI Disturbance Shellfish Containing Products Abdominal Pain Ok for ivp dye per pt Noted for pain clinic Tizanidine (Bulk) Abdominal Pain Tree Nuts Abdominal Pain Family History Problem Relation Age of Onset Cancer Mother Lung cancer Mother Miscarriages / Stillbirths Mother Vision loss Mother Stroke Father Heart disease Father Mahan's palsy Sister Rheum arthritis Nephew Graves' disease Niece Arthritis Son Depression Son Hypertension Son Vision loss Son Miscarriages / Stillbirths Sister Social History Socioeconomic History Marital status: Single Spouse name: Not on file Number of children: Not on file Years of education: Not on file Highest education level: Not on file Occupational History Not on file Tobacco Use Smoking status: Never Smokeless tobacco: Never Vaping Use Vaping status: Never Used Substance and Sexual Activity Alcohol use: Not Currently Drug use: No Sexual activity: Not Currently Partners: Male control/protection: Post-menopausal, None Other Topics Concern Not on file Social History Narrative Not on file Social Drivers of Health Financial Resource Strain: Medium Risk (02/07/2024) Overall Financial Resource Strain (CARDIA) Difficulty of Paying Living Expenses: Somewhat hard Food Insecurity: No Food Insecurity (01/01/2025) Hunger Screening Food Insecurity - Worry: Never True Food Insecurity - Inability: Never True Transportation Needs: Unmet Transportation Needs (02/07/2024) PRAPARE - Transportation Lack of Transportation (Medical): Yes Lack of Transportation (Non-Medical): Yes Physical Activity: Sufficiently Active (03/19/2023) Received from [facility] Exercise Vital Sign Days of Exercise per Week: 4 days Minutes of Exercise per Session: 90 min Stress: No Stress Concern Present (03/19/2023) Received from [facility] [place] [employer] - Occupational Stress Questionnaire Feeling of Stress : Only a little Social Connections: Socially Isolated (03/19/2023) Received from [facility] Social Connection and Isolation Panel [NHANES] Frequency of Communication with Friends and Family: Once a week Frequency of Social Gatherings with Friends and Family: Never Attends Yarsanism Services: Never Active Member of Clubs or Organizations: No Attends Club or Organization Meetings: Never Marital Status: Interpersonal Safety: Not At Risk (03/19/2023) Received from [facility] Humiliation, Afraid, Rape, and Kick questionnaire Fear of Current or Ex-Partner: No Emotionally Abused: No Physically Abused: No Sexually Abused: No Housing Instability: Low Risk (02/07/2024) Housing Instability Housing Instability: No Review of Systems Constitutional: Negative. Negative for chills, fatigue and fever. HENT: Negative. Eyes: Negative. Negative for photophobia. Respiratory: Negative. Cardiovascular: Negative. Negative for chest pain. Gastrointestinal: Negative. Negative for bowel incontinence. Endocrine: Negative. Genitourinary: Negative. Negative for bladder incontinence. Musculoskeletal: Positive for arthralgias (left 1st cmc), back pain, neck pain and neck stiffness. Negative for gait problem. Skin: Negative. Negative for rash and wound. Allergic/Immunologic: Negative. Neurological: Positive for weakness (BUE). Negative for numbness and headaches. Hematological: Negative. Does not bruise/bleed easily. Psychiatric/Behavioral: Negative. Negative for self-injury and suicidal ideas. Vital Signs: BP 115/63 Pulse 96 Resp 18 Ht 175.3 cm (5' 9 ) Wt 72.6 kg (160 lb) SpO2 99% BMI 23.63 kg/m Physical Exam: GENERAL - Healthy patient that appears stated age. HEENT - Normocephalic / Atraumatic, Extraoccular movements intact, trachea midline, thyroid within normal limits. CV - pulse regular, Warm extremities with appropriate color of nailbeds. RESP - No obvious wheezing, No Shortness of Breath, No overexertion response to exam maneuvers. COORDINATION - remains intact. PSYCH - Alert and Oriented x4, Attentive and appropriate, constitutionally normal, displays normal mood and affect per situation, answered questions appropriately during examination, demonstrated appropriate attention during discussion, demonstrated appropriate cognitive reasoning and understanding of the medical condition by asking appropriate questions regarding the diagnosis and risks/benefits/alternatives of treatment modalities. No obvious deficits in memory, reasoning, or intellect. Lumbar: SKIN - No rashes or bruising in the area of the patient s pain. LYMPH NODES - demonstrate no obvious enlargement. EXTREMITIES - Lower extremities are warm, with minimal edema and palpable pulses. Tenderness to palpation noted in the lumbar spine and paraspinal musculature. Pain is elicited with flexion, extension, and lateral rotation of the lumbar spine. Range of motion is diminished with these motions due to pain. Facet palpation is noted to be somewhat tender and facet loading maneuvers are mildly positive, but not concordant with the patient s normal pain complaints. STRENGTH - noted to be 5 out of 5 all muscle groups bilateral lower extremities including muscles involving hip flexion and abduction, knee flexion and extension, as well as foot dorsiflexion and plantarflexion. No notable atrophy, fasciculations or spasm. SENSORY - No notable sensory deficits in the bilateral lower extremities to touch or pinprick in all dermatomal distributions. Straight Leg Raise is negative. Tenderness to palpation is noted over the Bilateral SacroIliac Joint: Fabere sign (Lion's Test) is significantly positive, as is compression and distraction of the sacroiliac joints, which is consistent with some of the patient's normal pain. Gait is normal. Assessment/Treatment Plan: Rhona was seen today for neck pain, back pain and wrist pain. Diagnoses and all orders for this visit: Disorder of sacrum - Case request operating room: INJECTION BLOCK SACROILIAC JOINT Encounter for long-term opiate analgesic use Lumbosacral spondylosis without myelopathy Refill [place] QID PRN Bilateral Sacroiliac Joint Injection - under fluoroscopy with the use of contrast dye (unless contraindicated) It is hopeful that the described procedure will provide symptomatic pain relief. It is felt to be medically necessary noting that the patient has tried and failed more conservative modalities of therapy and this is the next most appropriate step. The procedure was described in detail to the patient as well as the potential benefits of pain reduction alongside risks of the procedure and alternatives. Risks were described as including, but not limited to bleeding, infection, nerve damage, spinal cord injury, paralysis, stroke, dural puncture headache, and medication reaction. The patient expressed understanding regarding the risks and benefits and wishes to proceed. Follow up 2 weeks after procedure The medications I have prescribed have been reviewed for medication interactions/contraindications and/or for upcoming procedures: continue current medication regimen without any changes. DISCUSSION: Treatment options discussed with patient and all questions answered to patient's satisfaction. Discussed the rules and regulations surrounding prescription of opioids and compliance at length. Failure to follow the rules and regulation will result in tapering and discontinuation of medications if applicable. The patient has been instructed as to the type of medication prescribed along with directions for use. Potential side effects have been discussed, along with risks and benefits of taking this medication. (S)he was instructed as to what to do if (s)he experiences side effects, including when to discontinue the medication. (S)he was advised to call this office in this event. Also discussed at length safety and security of RX and medications. Due to the high risk nature of this patient's pain medication regimen, frequent office visit refill appointments (every 1-3 months) are medically necessary to monitor for an addiction disorder. Prescribed medication that requires intensive monitoring for toxicity [place]. OARRS and most recent UDS were reviewed, discussed and appropriate for medications prescribed. [place] pill count completed at today's office visit. Dose: 5/325mg Quantity Dispensed 120 Quantity Remaining 22 Fill date on prescription bottle 12/06/2024 appropriate Patient educated to bring medication to every office visit. Declines narcan kit, has one and will assess expiration date. [place] was refilled at today's office visit. It appears that the patient's previous pain is under adequate control with the previous procedure. At this point, we will continue to monitor these symptoms and turn our immediate attention to the more painful complaint that was discussed today. It does appear that is it the new primary pain complaint and the patient would likely benefit from a procedure as treatment for this complaint as well. The spine model was demonstrated and MRI was reviewed and used to explain the condition. Chronic conditions not treated during this visit that affected my overall medical decision making: Comorbidity- Diabetes The patient has a history of diabetes mellitus currently managed with medications. This will need to be considered prior to any procedure that would require the injection of steroid in that the patient may experience a transient increase in glucose as a result. Additional consideration will need to be given to timing the procedure early in the morning in that the patient will need to be fasting prior to the administration of anesthesia. Every effort will be made to perform the procedure as a 1st case due to this condition. And the patient will be instructed to hold their diabetic medications on that morning. If necessary, a blood glucose test can also be performed that morning. The risks/ benefits/ and alternatives will be weighed and explained to the patient prior to any procedure. Comorbidity- Rheumatoid arthritis OARRS: Reviewed. Scribe Statement: Rani Kim CNA, scribed for and in the presence of AMEYA KINCAID who performed the above service. Rani Dominguez CNA 01/01/25 [id number] AMEYA Kincaid 01/01/25 [id number] documented in this encounter [facility] 01-01-2025 Instructions Rani Dominguez CNA - 01/01/2025 9:15 AM EDT Facet Injection / Medial Branch Block (MBB) / Sacroiliac (SI) Joint Injection / Cluneal NB A facet injection and sacroiliac joint injection are injections of local anesthetic and steroid into a joint in the spine. A medial branch block is similar, but the medication is placed outside the joint space near the nerve that supplies the joint called the medial branch (steroid may or may not be used). You may require multiple injections depending upon how many joints are involved. How Long Will This Procedure Last? The extent and duration of pain relief may depend on the amount of inflammation and how many areas are involved. Other coexisting factors may be responsible for your pain. If your pain goes away for a short time, but then returns, you may be a candidate for radiofrequency ablation (RFA). Activity Be active. Attempt activities and movements that typically cause pain to see if it feels better while doing them. We will give you a pain diary. Please fill this out as directed by your nurse in pre-op. This will help your doctor determine the effectiveness of the injection, and how to proceed. Bring the pain diary with you to your follow-up appointment. Medications You should not take your pain medications for 4-6 hours before or after the injection in order to properly diagnose if the injection provides adequate relief. Resume your routine medications after your procedure. You may resume blood thinners per your regular schedule after the procedure. If you received sedation: If you received sedation for your procedure, you may feel sleepy or not yourself for several hours today. For the next 24 hours avoid activities that requires alertness or coordination. This includes: Driving or operating heavy machinery Using power tools Consuming alcohol Do not make important or complex decisions or sign legal documents in the next 24 hours. Other Instructions: If you feel severe pain at the injection site with swelling and redness, increased leg weakness, a fever of 101 or higher, headache (or worsening headache), changes in vision or urinary retention: Please call the office at , or have someone take you to the nearest emergency room. Tell the emergency room staff that you recently had a spine injection. A doctor must evaluate you for bleeding and injection complications. If you lose control over bowel, bladder, or legs: Go to the nearest emergency room. documented in this encounter [facility] 12-19-2024 History of Present illness Narrative [facility] Refill Assessment Medication(s): Enbrel Patient's current medication list and adherence status to current therapy were reviewed by Specialty Pharmacy clinical pharmacist to identify any new drug interactions or non-compliance to therapy. Therapy continues to be appropriate for disease, patient response, and medical condition. Verification of therapeutic benefit and effectiveness with current therapy was completed. Adverse events, barriers in adherence, and side effects were assessed and addressed if applicable. Will proceed with refill with no changes in therapy - patient progressing towards achieving therapeutic goals based on medication-specific laboratory parameters, disease state markers and outcomes. Office/provider notes have been reviewed prior to dispensing the medication. 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 Med/dose confirmed: Yes Supplies needed: No supplies needed Missed doses: No Estimated days supply on hand: 1 Next cycle/dose due: 12/23/24 Copay amount: 0 Payment confirmed: Yes Delivery method: FedEx Signature required: Waived on patient request Delivery address: [address] [place] [address] [address] [place] [id number] Delivery date: 12/23/24 Questions or concerns for the pharmacist?: No Did you have any side effects believed to be related to this medication, that resulted in hospitalization?: No Current Outpatient Medications on File Prior to Visit Medication Sig predniSONE (DELTASONE) 5 mg tablet Day 1=6tabs with food, Day 2=5tabs, Day 3=4tabs, Day 4=3tabs, Day 5=2tabs, then 1tab daily thereafter if needed No NSAIDs on med amitriptyline (ELAVIL) 25 mg tablet Take 2 tablets by mouth daily at bedtime. colchicine 0.6 mg tablet Take 1tab by mouth up to twice a day as tolerated. May cause diarrhea. cyclobenzaprine (FLEXERIL) 10 mg tablet Take 1-2tabs 3times a day gabapentin (NEURONTIN) 600 mg tablet Take 4caps by mouth per day Etanercept (ENBREL SURECLICK) 50 mg/mL (1 mL) Inject 50mg (1 pen) subcutaneously once a week. Hold if ill or on antibiotics. No LIVE vaccines. lisinopril (ZESTRIL) 40 mg tablet Take 1 tablet by mouth every afternoon. omeprazole (PRILOSEC) 20 mg capsule Take 1 capsule by mouth two times a day. acyclovir (ZOVIRAX) 400 mg tablet take 1 tablet by mouth twice a day glimepiride (AMARYL) 1 mg tablet therapeutic multivitamin (THERA VITAMIN) tablet Take 1 tablet by mouth every morning. Biotin 10,000 mcg cap Take by mouth twice daily. HYDROcodone-acetaminophen (NORCO) 5-325 mg per tablet Take 1 tablet by mouth every 8 hours as needed. No current facility-administered medications on file prior to visit. [facility] CLINICAL ASSESSMENT - INFLAMMATORY CONDITIONS V6: Assessment to use: Refill Date of influenza vaccination reminder: 07/14/2024 Date of most recent vaccination assessment: 07/14/2024 Treatment Plan Information: Enbrel Inject 50mg (1 pen) subcutaneously once a week. Hold if ill or on antibiotics. No LIVE vaccines. Est. Tx Plan Start Date: 07/15/2024 Estimated Start Date Info: No information available Est. Estimated Treatment Duration: Until lack of efficacy Blessing Meléndez CPhT, Inflammatory/Allergy [facility] [phone] documented in this encounter [facility] 12-19-2024 Note HNO ID: [id number] Author: , RPh Service: ? Author Type: ? Type: Progress Notes Filed: 01/08/2025 13:50 Note Text: [facility] Refill Assessment Medication(s): Enbrel Patient's current medication list and adherence status to current therapy were reviewed by Specialty Pharmacy clinical pharmacist to identify any new drug interactions or non-compliance to therapy. Therapy continues to be appropriate for disease, patient response, and medical condition. Verification of therapeutic benefit and effectiveness with current therapy was completed. Adverse events, barriers in adherence, and side effects were assessed and addressed if applicable. Will proceed with refill with no changes in therapy - patient progressing towards achieving therapeutic goals based on medication-specific laboratory parameters, disease state markers and outcomes. Office/provider notes have been reviewed prior to dispensing the medication. Entanercept (Enbrel) - TNFi - DMARD CBC with differential (baseline); complete metabolic panel (baseline); tuberculosis (TB) screening prior to initiating and during therapy (chest X-ray if TB positive); hepatitis B virus (HBV)/hepatitis C virus screening prior to initiating (all patients), HBV carriers (during and for several months following therapy); HIV screening (baseline) (AAD-NPF [Menter 2019]); signs/symptoms of infection, heart failure, hypersensitivity reaction, lupus-like syndrome, or malignancy (eg, splenomegaly, hepatomegaly, abdominal pain, persistent fever, night sweats, weight loss). Monitor improvement of symptoms and physical function assessments. CBC with diff: WBC Date Value Ref Range Status 01/19/2021 4.43 3.70 - 11.00 k/uL Final RBC Date Value Ref Range Status 01/19/2021 4.10 3.90 - 5.20 m/uL Final Hemoglobin Date Value Ref Range Status 01/19/2021 12.0 11.5 - 15.5 g/dL Final Hematocrit Date Value Ref Range Status 01/19/2021 38.0 36.0 - 46.0 % Final MCV Date Value Ref Range Status 01/19/2021 92.7 80.0 - 100.0 fL Final MCH Date Value Ref Range Status 01/19/2021 29.3 26.0 - 34.0 pG Final MCHC Date Value Ref Range Status 01/19/2021 31.6 30.5 - 36.0 g/dL Final RDW-CV Date Value Ref Range Status 01/19/2021 12.6 11.5 - 15.0 % Final Platelet Count Date Value Ref Range Status 01/19/2021 237 150 - 400 k/uL Final MPV Date Value Ref Range Status 01/19/2021 11.0 9.0 - 12.7 fL Final Neut% Date Value Ref Range Status 12/16/2015 55.6 % Final Lymph% Date Value Ref Range Status 12/16/2015 33.8 % Final Jerauld% Date Value Ref Range Status 12/16/2015 5.8 % Final Eosin% Date Value Ref Range Status 12/16/2015 4.3 % Final Baso% Date Value Ref Range Status 12/16/2015 0.5 % Final Abs Neut (ANC) Date Value Ref Range Status 12/16/2015 2.32 1.45 - 7.50 k/uL Final Abs Jerauld Date Value Ref Range Status 12/16/2015 0.24 0.00 - 0.86 k/uL Final Abs Eosin Date Value Ref Range Status 12/16/2015 0.18 0.00 - 0.45 k/uL Final Abs Baso Date Value Ref Range Status 12/16/2015 0.02 0.00 - 0.10 k/uL Final TB: TB Result Date Value Ref Range Status 07/14/2020 Negative Negative Final HBV: HBsAg Date Value Ref Range Status 07/14/2020 Negative Negative Final Hep B Surface Ab, Qual Date Value Ref Range Status 07/14/2020 Negative Negative Final Comment: NEGATIVE Hep B Core Ab, Total Date Value Ref Range Status 07/14/2020 Negative Negative Final HCV: Hep C Antibody IA Date Value Ref Range Status 07/14/2020 Negative Negative Final HIV: No results found for: HIV1AB Current Outpatient Medications on File Prior to Visit Medication Sig predniSONE (DELTASONE) 5 mg tablet Day 1=6tabs with food, Day 2=5tabs, Day 3=4tabs, Day 4=3tabs, Day 5=2tabs, then 1tab daily thereafter if needed No NSAIDs on med amitriptyline (ELAVIL) 25 mg tablet Take 2 tablets by mouth daily at bedtime. colchicine 0.6 mg tablet Take 1tab by mouth up to twice a day as tolerated. May cause diarrhea. cyclobenzaprine (FLEXERIL) 10 mg tablet Take 1-2tabs 3times a day gabapentin (NEURONTIN) 600 mg tablet Take 4caps by mouth per day Etanercept (ENBREL SURECLICK) 50 mg/mL (1 mL) Inject 50mg (1 pen) subcutaneously once a week. Hold if ill or on antibiotics. No LIVE vaccines. lisinopril (ZESTRIL) 40 mg tablet Take 1 tablet by mouth every afternoon. omeprazole (PRILOSEC) 20 mg capsule Take 1 capsule by mouth two times a day. acyclovir (ZOVIRAX) 400 mg tablet take 1 tablet by mouth twice a day glimepiride (AMARYL) 1 mg tablet therapeutic multivitamin (THERA VITAMIN) tablet Take 1 tablet by mouth every morning. Biotin 10,000 mcg cap Take by mouth twice daily. HYDROcodone-acetaminophen (NORCO) 5-325 mg per tablet Take 1 tablet by mouth every 8 hours as needed. No current facility-administered medications on file prior to visit. Canceled Appointments: Future Appointments Date Time Provider Department Center (more content not included)... [facility] 12-01-2024 Instructions Eugenio Ellis MD - 12/01/2024 1:37 PM EDT May apply over the counter arthritis cream (biofreeze, icy hot, asper cream, tiger balm, capsacin, etc.) to painful joints up to four times a day. Avoid contact with eyes. May take ES acetaminophen 500mg every 4-6hours for joint pain. Do not exceed 3000mg /day. Decrease stress Improve sleep May apply heat/ice 20minutes on and off to areas of pain Avoid aggravating triggers If needed, may take Calcium 1000mg daily with food in DIVIDED doses If normal, take Vitamin D 4000 International Units daily with food Vitamin b12 as instructed Neurontin/gabapentin as instructed OFF cardizem May apply nitrobid for raynauds as instructed, may cause headaches colchicine once to twice a day if tolerated, may cause diarrhea enbrel as instructed Please hold enbrel if on antibiotics or if you have any signs/symptoms of infection. 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 [facility] 11/25/24 high glucose 198;low hgb 11;normal rest of cmp, calcium 9.1, potassium 3.8, alkaline phosphatase 68, ast 15, alt 16, creat 0.89, vitamin D 60.7, wbc 6.5, plts 238, esr 18 (NL0-30mm/hr), crp<0.1 (normal<0.7mg/dL); [facility] 09/11/24 low hgb 11.2normal cmp, potassium 4, creat 0.76, calcium 9, alkaline phosphatase 78, ast 16, alt 14, crp 0.4 (NL0-0.744mg/dL), vitamin D 54.8, esr 5 (NL0-30mm/hr), wbc 5.2, plts 286;negative quantiferon quantiferon tb Moisturizing treatments Stimulating saliva -- Simply sucking on sugarless candy or dried fruit slices (eg, peaches or nectarines) can stimulate the flow of saliva in many patients. [place] flavored sugarless tablets and sugar-free chewing gum may also be helpful. In some patients, medications such as pilocarpine or cevimeline are given to increase saliva production. Replacing secretions in the mouth -- Sipping on water throughout the day is an easy and effective treatment of dry mouth for many patients. The water does not have to be swallowed. It can be rinsed around the mouth and then spit out. If this is not effective, an artificial saliva product (spray or lozenge) may be helpful. If painful gums are a problem, a gel that relieves dry mouth (such as Oral Balance) can be helpful. Avoiding cavities -- Patients with SS are at increased risk for dental cavities. SS patients should perform careful dental hygiene, ideally brushing and dental flossing after eating meals and snacks. Patients should visit their dentist at least every six months. Toothpaste designed specifically for patients with dry mouth is available (eg, Biotene , Orajel ). These lack the detergents that are present in many types of toothpaste, which can irritate a dry mouth. Toothbrushes with special features that help clean between the teeth and electric toothbrushes may also help to keep the teeth clean. Patients should use a toothpaste with fluoride or a special fluoride rinse or varnish. We recommend a fluoride treatment with a dentist or dental hygienist after each cleaning. Since the dentist may not stock this treatment, patients should contact the dental office prior to the appointment. Dry eye -- Use of a humidifier or moist washcloth over the eyes may provide some relief for dry eyes. Most patients also use an artificial tear drop. Many different solutions are available; a clinician can recommend an appropriate choice based on an individual's pattern of dryness and fluid production in the eye. Some patients are sensitive to the preservatives found in artificial tear preparations. If burning or itching occurs, a brand with a non-irritating preservative may be tried. Alternately, a preservative-free variety can be used. Eye drops without preservative come in small, single-dose containers that may be hard for some people with joint and/or vision problems. A prescription eye drop containing cyclosporine is also available (Restasis ). Some patients use an eye ointment at night. It is important to use only about 1/8 (3 mm) of the ointment because overuse can block the ducts and lead to a condition called blepharitis (see Blepharitis (eyelid inflammation) below). Preserving natural tears -- Various measures can be used to preserve a patient's own tears. Gutierrez can be fitted on the sides of glasses, helping to protect the eye from air and wind, reducing evaporation of tears. Goggles or wrap-around sunglasses serve a similar function. Another approach is a simple surgical procedure called punctal occlusion. In this procedure, an marine firefighter inserts small plugs into the tear ducts in the corner of the lower eyelid, nearest the nose, where the tears normally collect and drain into the nasal passages. By blocking this duct, the patient's tears stay on the eye longer. There are several types of plugs, one of which does not touch the surface of the eyeball; these plugs are generally preferred. Treating other problems Fungal infections in the mouth -- Prescription medications are available to treat painful mouth lesions due to oral candidiasis (yeast infection); these include clotrimazole, nystatin elixir, miconazole gel, or amphotericin B lozenges. Patients who wear dentures and develop an infection should disinfect the dentures overnight while being treated. The soak should include nystatin powder or 0.2 percent chlorhexidine solution to prevent reinfection. Dry nose -- It is important to treat nasal dryness or stuffiness because blocked nasal passages can increase mouth breathing and worsen dry mouth. Saline nasal sprays are available in most drugstores. Other cause of nasal blockage, including allergy or sinus infection, should be treated promptly. (See Patient information: Rhinitis). Blepharitis (eyelid inflammation) -- Blepharitis causes symptoms that are similar to those of dry eye (swollen lids and redness of the inside of the lids). Gently washing the skin of the eyelids can relieve blepharitis. This can be done with a warm wet washcloth and a small amount of no tears shampoo. With the eyes closed, the excess debris should be rubbed from the inner eye to the outer eye area. Dryness in other areas -- Patients with SS may have dryness in other areas, including the lips, skin, and the vagina. Dry lips may require petroleum jelly or lip salves. Dry skin usually improves with frequent and liberal use of a moisturizing cream or ointment. Some women with SS have difficulty with vaginal dryness, especially after menopause. There are several products specifically designed for vaginal dryness, including vaginal moisturizers, estrogen cream, vitamin E oil, and lubricants for use with sexual intercourse; a healthcare provider should be consulted for specific recommendations. GENERAL MEASURES -- The following general measures are helpful for all patients with Raynaud's: Avoidance of sudden cold exposure and stress reduction Use of strategies to keep the whole body warm, including dressing warmly (eg, with thermal underwear and heat conserving hat) Keeping digits warm (eg, mittens or electric hand warmers instead of gloves). Knowledge of methods to help terminate an attack of RP. These include placing the hands under warm water or in a warm place (such as the axilla), or rotating arms in a whirling or windmill pattern. Avoidance of rapidly changing temperatures, such as quickly moving from a hot environment (90 degrees F) into an air-conditioned room (70 degrees F); cool breezes, or humid cold air is also recommended. Avoidance of smoking is recommended since regular smokers are sensitized to the vasoconstrictive properties of cigarettes; the response in patients with RP does not appear to be different from that in normals [5]. Avoiding second hand smoke is prudent. Avoidance of sympathomimetic drugs (such as decongestants, amphetamines, diet pills, herbs containing ephedra) is generally recommended, but studies of the true impact of [id number] preparations (such as cold medications) have not yet been performed. Discontinuing caffeine containing beverages has also been recommended, but xanthines transiently reduce peripheral vascular resistance. Patients with vibration-induced RP should avoid use of vibrating tools. Raynaud's phenomenon often can be managed just with lifestyle modification. Certain general measures may be adopted to help prevent and terminate Raynaud s attacks. These simple measures can reduce the frequency, severity, and duration of attacks and include avoiding cold temperatures and temperature fluctuations; alleviating stress; adopting measures to keep the body warm, including adequate clothing (eg, using multiple layers, wearing thermal underwear and a warm hat); and keeping the fingers warm (eg, by using mittens or electric hand warmers instead of gloves). Placing the hands under warm water or rotating the arms in a windmill pattern may help abort Raynaud s attacks. Both active and passive smoking should be avoided to help minimize the vasoconstrictive effects of tobacco. Sympathomimetic drugs (eg, decongestants, stimulants, and anorexiants) should also be avoided. A calcium channel agnieszka, such as Amlodipine (Norvasc) 2.5mg tablet at night or Procardia, can be used during the winter months for intractable Raynaud's phenomenon. BONE MINERAL DENSITY PATIENT INSTRUCTIONS ======== Bone mineral density testing measures the amount of calcium in certain parts of your bones. This information determines how strong your bones are. The test is used to detect osteoporosis, a disease in which the bone's mineral content and density are low, increasing a person's risk of fractures. The lumbar spine (lower back) and the hip are the skeletal sites usually examined. For the test, remember that: 1. You cannot take this test if you are . 2. Eat a normal diet on the day of the test. 3. Take your medications as you normally would. 4. DO NOT take calcium supplements (such as Tums) for 24 hours before the test. 5. On the day of the test, leave valuables (jewelry or credit cards) at home. 6. The test should be performed prior to oral, rectal or IV contrast studies, or at least 7 days after any of these studies. For the test, you may be asked to wear a hospital gown. You will lie on your back, on a padded table, in a comfortable position. Generally, you can resume your usual activities immediately. documented in this encounter [facility] 12-01-2024 Note HNO ID: [id number] Author: EUGENIO ELLIS MD Service: ? Author Type: Physician Type: Progress Notes Filed: 12/01/2024 15:54 Note Text: Face to face Follow up for Ankylosing spondylitis/CTS/raynauds/joint pain/ osteoarthritis/ pseudogout Today's visit 12/01/24:labs in 3months. taking elavil, biotin, colchicine, flexeril, enbrel since 06/2024 started working by 08/2024 was better when twice a week/not approved, gabapentin, prilosec. Last cosentyx dose 2023 no response. Yes pseudogout attacks, left wrist. 2weeks ago recent oral steroids with good response. no eye issues. Raynauds better with warmer weather, no digital ulcers. [facility] 11/25/24 high glucose 198;low hgb 11;normal rest of cmp, calcium 9.1, potassium 3.8, alkaline phosphatase 68, ast 15, alt 16, creat 0.89, vitamin D 60.7, wbc 6.5, plts 238, esr 18 (NL0-30mm/hr), crp<0.1 (normal<0.7mg/dL); [facility] 09/11/24 low hgb 11.2normal cmp, potassium 4, creat 0.76, calcium 9, alkaline phosphatase 78, ast 16, alt 14, crp 0.4 (NL0-0.744mg/dL), vitamin D 54.8, esr 5 (NL0-30mm/hr), wbc 5.2, plts 286;negative quantiferon tb 70% improvement from enbrel. limited exercise due to pain. Left elbow and left wrist swelling. Chronic current pain in hands, wrists, Left elbow, neck ,spine. Since last visit fell in bath tub, no fracture. Reports pain 12/11. Has moderate minimal AM stiffness. Interested in possible surgery for left wrist and left forearm nodule. Feels safe at home. Has enough food, supplies and medications. Overall mildly uncomfortable but happy with rheum care. No falls/trauma/illness/oral sores/rash/hairloss/jaw pain/dysphagia/epistaxis/hemoptys is since last visit. No adverse effects with meds. No other complaints. Patient denies fever, chills, cp, dyspnea, nausea, vomiting, night sweats, scalp tenderness, visual changes, cadena, bowel/bladder changes, weight changes or other complaints. Last visit supportive care, start colchicine/notify office if not tolerated, improved with gabapentin/increase to 600mg 3-4caps per day, check xrays/US of hands to clarify if pain is from pseudogout/inflammatory arthritis/osteoarthritis, may start methotrexate and folic acid if symptoms persist/worsens, restart fall precautions, see neurology for dizziness/crystals care, see primary care provider for depression care/concern about low glucose, flexeril prn, prn neurontin, see derm, see GI, biotene products, follow up with ortho for s/p L CTS care/improved with injections/may try for shoulder/R hand, on cardizem per PCP/ok to increase for winter, raynauds general measures, wear heated hand glove liners, for flares take prednisone ashanti, f/u ENT for TMJ growth/pain, f/u spine/PT, tolerating cimzia as instructed, OFF due to insurance enbrel 50mg sq injection TWICE a week since 08/2015, since SSZ/methotrexate not tolerated, did discuss alternative biologics if high APRs, prn heat/ice/otc arthritis creams, unable to wear wrist braces due to thumb pain, correction pain recommendations per pain clinic/improved with injections, weightbearing exercises/stretching, 03/29/24:taking cosentyx, gabapentin 300mg 5per day, flexeril, elavil, biotin, prilosec. Better with recent oral steroids x3 with good response. stable eye exam. Raynauds better with warmer weather, no digital ulcers. Saw neurology, had UE EMG changes from neck, saw pain clinic had injection in neck (helped) and wrist (no help with injection). Outside 03/26/24 low hgb 11.1;high glucose 142, vitamin b12>1500;normal rest of cbc, cmp, vitamin D 54.4; Outside 02/11/24 low wbc 3.8, hgb 11.3, mag 1.7;high cholesterol 246, hgba1c 7;normal cmp, plts 217, tsh 2.39; Insurance denied enbrel. Tried cosentyx 6weeks ago. 03/21/24 reports The fingers of my right hand are becoming difficult to straighten, the middle one is worse, it really hurts too. Two weeks ago I had two shots between my shoulder blades to stop the pain from my neck shooting down my arm That finger and the index finger are also becoming twisted. If I remain in one position for too long, all my muscles and joints feel as if they?ve turned into cement, I have to work out the kinks before I can move. Once I bent over and could not stand back up, 10-30% improvement from cosentyx vs. 50-75% improvement from enbrel. limited exercise due to pain. Fingers and DIP and swelling. Chronic current pain in hands and fingers twisting, neck, hips (THR 11yrs ago). Reports pain 8/10. Has 30 min minimal AM stiffness. Feels safe at home. Has enough food, supplies and medications. Overall uncomfortable but happy with rheum care. No falls/fx/trauma/illness/oral sores/rash/hairloss/jaw pain/dysphagia/epistaxis/hemoptys is since last visit. No adverse effects with meds. No other complaints. Patient denies fever, chills, cp, dyspnea, nausea, vomiting, night sweats, scalp tenderness, visual changes, cadena, bowel/bladder changes, weight changes or other complaints. (more content not included)... [facility] 12-01-2024 History of Present illness Narrative Face to face Follow up for Ankylosing spondylitis/CTS/raynauds/joint pain/ osteoarthritis/ pseudogout Today's visit 12/01/24:labs in 3months. taking elavil, biotin, colchicine, flexeril, enbrel since 06/2024 started working by 08/2024 was better when twice a week/not approved, gabapentin, prilosec. Last cosentyx dose 2023 no response. Yes pseudogout attacks, left wrist. 2weeks ago recent oral steroids with good response. no eye issues. Raynauds better with warmer weather, no digital ulcers. [facility] 11/25/24 high glucose 198;low hgb 11;normal rest of cmp, calcium 9.1, potassium 3.8, alkaline phosphatase 68, ast 15, alt 16, creat 0.89, vitamin D 60.7, wbc 6.5, plts 238, esr 18 (NL0-30mm/hr), crp<0.1 (normal<0.7mg/dL); [facility] 09/11/24 low hgb 11.2normal cmp, potassium 4, creat 0.76, calcium 9, alkaline phosphatase 78, ast 16, alt 14, crp 0.4 (NL0-0.744mg/dL), vitamin D 54.8, esr 5 (NL0-30mm/hr), wbc 5.2, plts 286;negative quantiferon tb 70% improvement from enbrel. limited exercise due to pain. Left elbow and left wrist swelling. Chronic current pain in hands, wrists, Left elbow, neck ,spine. Since last visit fell in bath tub, no fracture. Reports pain /10. Has moderate minimal AM stiffness. Interested in possible surgery for left wrist and left forearm nodule. Feels safe at home. Has enough food, supplies and medications. Overall mildly uncomfortable but happy with rheum care. No falls/trauma/illness/oral sores/rash/hairloss/jaw pain/dysphagia/epistaxis/hemoptys is since last visit. No adverse effects with meds. No other complaints. Patient denies fever, chills, cp, dyspnea, nausea, vomiting, night sweats, scalp tenderness, visual changes, cadena, bowel/bladder changes, weight changes or other complaints. Last visit supportive care, start colchicine/notify office if not tolerated, improved with gabapentin/increase to 600mg 3-4caps per day, check xrays/US of hands to clarify if pain is from pseudogout/inflammatory arthritis/osteoarthritis, may start methotrexate and folic acid if symptoms persist/worsens, restart fall precautions, see neurology for dizziness/crystals care, see primary care provider for depression care/concern about low glucose, flexeril prn, prn neurontin, see derm, see GI, biotene products, follow up with ortho for s/p L CTS care/improved with injections/may try for shoulder/R hand, on cardizem per PCP/ok to increase for winter, raynauds general measures, wear heated hand glove liners, for flares take prednisone ashanti, f/u ENT for TMJ growth/pain, f/u spine/PT, tolerating cimzia as instructed, OFF due to insurance enbrel 50mg sq injection TWICE a week since 08/2015, since SSZ/methotrexate not tolerated, did discuss alternative biologics if high APRs, prn heat/ice/otc arthritis creams, unable to wear wrist braces due to thumb pain, correction pain recommendations per pain clinic/improved with injections, weightbearing exercises/stretching, 03/29/24:taking cosentyx, gabapentin 300mg 5per day, flexeril, elavil, biotin, prilosec. Better with recent oral steroids x3 with good response. stable eye exam. Raynauds better with warmer weather, no digital ulcers. Saw neurology, had UE EMG changes from neck, saw pain clinic had injection in neck (helped) and wrist (no help with injection). Outside 03/26/24 low hgb 11.1;high glucose 142, vitamin b12>1500;normal rest of cbc, cmp, vitamin D 54.4; Outside 02/11/24 low wbc 3.8, hgb 11.3, mag 1.7;high cholesterol 246, hgba1c 7;normal cmp, plts 217, tsh 2.39; Insurance denied enbrel. Tried cosentyx 6weeks ago. 03/21/24 reports The fingers of my right hand are becoming difficult to straighten, the middle one is worse, it really hurts too. Two weeks ago I had two shots between my shoulder blades to stop the pain from my neck shooting down my arm That finger and the index finger are also becoming twisted. If I remain in one position for too long, all my muscles and joints feel as if they ve turned into cement, I have to work out the kinks before I can move. Once I bent over and could not stand back up, 10-30% improvement from cosentyx vs. 50-75% improvement from enbrel. limited exercise due to pain. Fingers and DIP and swelling. Chronic current pain in hands and fingers twisting, neck, hips (THR 11yrs ago). Reports pain 01/11. Has 30 min minimal AM stiffness. Feels safe at home. Has enough food, supplies and medications. Overall uncomfortable but happy with rheum care. No falls/fx/trauma/illness/oral sores/rash/hairloss/jaw pain/dysphagia/epistaxis/hemoptys is since last visit. No adverse effects with meds. No other complaints. Patient denies fever, chills, cp, dyspnea, nausea, vomiting, night sweats, scalp tenderness, visual changes, cadena, bowel/bladder changes, weight changes or other complaints. Last visit supportive care, check labs, may start methotrexate and folic acid if symptoms persist/worsens, restart fall precautions, see neurology for dizziness/crystals care, see primary care provider for depression care/concern about low glucose, flexeril prn, prn neurontin, see derm, see GI, biotene products, follow up with ortho for s/p L CTS care/improved with injections/may try for shoulder/R hand, on cardizem per PCP/ok to increase for winter, raynauds general measures, wear heated hand glove liners, for flares take prednisone ashanti, f/u ENT for TMJ growth/pain, f/u spine/PT, tolerating cimzia as instructed, OFF enbrel 50mg sq injection TWICE a week since 08/2015 since SSZ/methotrexate not tolerated, did discuss alternative biologics if high APRs, prn heat/ice/otc arthritis creams, unable to wear wrist braces due to thumb pain, 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 3-4months ago eye exam, worsening cataracts.. Raynauds better with warmer weather, no digital ulcers. Fell a few times. 01/18/24 due for left shoulder injection 12/25/23 seen for neck pain 12/25/23 high crp 1.1 (NL0-0.744mg/dL), glucose 140, vitamin b12>1500;low hgb 10.6normal cmp, potassium 3.8, creat 0.83, calcium 9, alkaline phosphatase 69, ast 15, alt 12, vitamin D 53.8, wbc 6.9, plts 317;negative quantiferon tb; 11/30/23 had right shoulder injection [facility] 07/03/23 normal cmp, potassium 4.1, creat 0.81, glucose 71, calcium 9, alkaline phosphatase 74, ast 18, alt 16, crp 0.2 (NL0-0.744mg/dL), vitamin D 54.4, cbc, wbc 5.6, hgb 11.8, plts 272, esr 30 (normal 0-30mm/hr) 05/07/23 last dose cimzia 06/27/23 restart enbrel 50-75% improvement from enbrel, worse pain since late for medication and decreased to once a week. limited exercise due to pain. R 2nd/3rd MCP, R hand swelling. Chronic current pain in R hand now claw like, unable close and flatten, L>R hips, low back, legs cramp . More neck crunching, left hip popping(10years since hip surgery). Reports pain /. Has 2hr minimal AM stiffness. Feels safe at home. Has enough food, supplies and medications. Overall uncomfortable but happy with rheum care. No fx/trauma/illness/oral sores/rash/hairloss/jaw pain/dysphagia/epistaxis/hemoptys is since last visit. No adverse effects with meds. No other complaints. Patient denies fever, chills, cp, dyspnea, nausea, vomiting, night sweats, scalp tenderness, visual changes, cadena, bowel/bladder changes, weight changes or other complaints. Last visit supportive care, restart fall precautions, see neurology for dizziness/crystals care, see primary care provider for depression care/concern about low glucose, flexeril prn, prn neurontin, see derm, see GI, biotene products, follow up with ortho for s/p L CTS care/improved with injections, on cardizem per PCP/ok to increase for winter, raynauds general measures, wear heated hand glove liners, for flares take prednisone ashanti, f/u ENT for TMJ growth/pain, f/u spine/PT, tolerating cimzia as instructed, OFF enbrel 50mg sq injection TWICE a week since 08/2015 since SSZ/methotrexate not tolerated, did discuss alternative biologics if high APRs, prn heat/ice/otc arthritis creams, unable to wear wrist braces due to thumb pain, correction pain recommendations per pain clinic/improved with injections, weightbearing exercises/stretching, 04/06/23:was on enbrel. Taking cimzia had 3rd injection yesterday. Neurontin, elavil, flexeril, mobic, last week Left forearm wound, infected 2days later when to ED, treated with oral antibiotics, tetanus injections, xrays negative for fracture. Fall a lot, due to crystals brain. Seeing neurology. 03/04/23 recent oral steroids. Saw shoulder injections 12/2022 and 04/06/23 left wrist steroid injections with some response. 70% improvement from cimzia. Saw ortho offered cleaning left wrist and fusion but patient declined. limited exercise due to pain. Left swelling. Chronic current pain in left wrists, Right shoulder, worse pain with weather change. Reports pain 12/11. Has minimal AM stiffness. Raynauds stable. Feels safe at home. Has enough food, supplies and medications. Overall mildly uncomfortable but happy with rheum care. No falls/fx/trauma/illness/oral sores/rash/hairloss/jaw pain/dysphagia/epistaxis/hemoptys is since last visit. No adverse effects with meds. No other complaints. Patient denies fever, chills, cp, dyspnea, nausea, vomiting, night sweats, scalp tenderness, visual changes, cadena, bowel/bladder changes, weight changes or other complaints. Last visit supportive care, start fall precautions, see neurology for dizziness/crystals care, see primary care provider for depression care/concern about low glucose, flexeril prn, prn neurontin, see derm, see GI, biotene products, follow up with ortho for s/p L CTS care/possible L thumb/wrist ganglion cyst care, on cardizem per PCP/ok to increase for winter, raynauds general measures, wear heated hand glove liners, for flares take prednisone ashanti, f/u ENT for TMJ growth/pain, f/u spine/PT, enbrel 50mg sq injection TWICE a week since 08/2015 since SSZ/methotrexate not tolerated, did discuss alternative biologics if high APRs, prn heat/ice/otc arthritis creams, unable to wear wrist braces due to thumb pain, director long term care pain recommendations per pain clinic/improved with injections, weightbearing exercises/stretching 08/28/22:reports dry eyes/mouth, headache, numbness, memory loss, gerd, weight changes. taking flexeril, elavil, enbrel, neurontin 300mg 1-2cap twice a day, mvi. Fell months ago, tooth crack. Multiple falls, crystals, prescribed medication made her worse, will see soon. back injection of steroids a few months ago. No recent oral steroids. 70% improvement from enbrel. Was off for a months due to insurance and felt worse and more pain all over. no exercise due to dizziness. Left wrist swelling. Chronic current pain in left buttocks, low back, left hand/wrists. Reports pain 7/10. Has 30min minimal AM stiffness. More raynauds of fingers, multiple cuts, slow healing, no digital ulcer. 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 Feels safe at home. Has enough food, supplies and medications. Overall mildly uncomfortable but happy with rheum care. No falls/fx/trauma/illness/oral sores/rash/hairloss/jaw pain/dysphagia/epistaxis/hemoptys is since last visit. No adverse effects with meds. No other complaints. Patient denies fever, chills, cp, dyspnea, nausea, vomiting, night sweats, scalp tenderness, visual changes, cadena, bowel/bladder changes, or other complaints. Last visit supportive care, see neurology, see primary care provider for depression care, increase flexeril prn, increase prn neurontin, see derm, see GI, biotene products, follow up with ortho for s/p L CTS care/possible L thumb/wrist ganglion cyst care, on cardizem per PCP/ok to increase for winter, raynauds general measures, wear heated hand glove liners, for flares take prednisone ashanti, f/u ENT for TMJ growth/pain, f/u spine/PT, enbrel 50mg sq injection TWICE a week since 08/2015 since SSZ/methotrexate not tolerated, did discuss alternative biologics if high APRs, prn heat/ice/otc arthritis creams, unable to wear wrist braces due to thumb pain, correction pain recommendations per pain clinic/improved with injections, weightbearing exercises/stretching, 11/11/21:had COVID19 infection end of 2020, no antibody infusion, treated with steroids, missed enbrel x 3weeks. Still tired since infection, still has loss of taste and smell. Lost 60lbs. taking elavil, mobic, neurontin 5caps per day, flexeril, enbrel, biotin, vitamin D two gummies, vitamin b12 two gummies. 50-60% improvement from enbrel. Chronic current pain in back, hands, arms. Will see neurology. 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 Reports pain 12/11. minimal AM stiffness. No COVID, flu vaccine. Stopped advil since it gave her headaches. Taking tylenol. raynauds stable. Feels safe at home. Has enough food, supplies and medications. Overall uncomfortable but happy with rheum care. No falls/fx/trauma/illness/oral sores/rash/hairloss/jaw pain/dysphagia/epistaxis/hemoptys is since last visit. No adverse effects with meds. No other complaints. Patient denies fever, chills, cp, dyspnea, nausea, vomiting, night sweats, scalp tenderness, visual changes, cadena, bowel/bladder changes, weight changes or other complaints. Last visit supportive care, [place] for COVID vaccines and booster, see primary care provider for depression care, increase flexeril prn, increase prn neurontin, see derm, see GI, biotene products, follow up with ortho for s/p L CTS care/possible L thumb/wrist ganglion cyst care, on cardizem per PCP/ok to increase for winter, raynauds general measures, wear heated hand glove liners, for flares take prednisone ashanti, f/u ENT for TMJ growth/pain, f/u with PCP/neurology for memory changes, f/u spine/PT, enbrel 50mg sq injection TWICE a week since 08/2015 since SSZ/methotrexate not tolerated, did discuss alternative biologics if high APRs, prn heat/ice/otc arthritis creams, unable to wear wrist braces due to thumb pain, director long term care pain recommendations per pain clinic/improved with injections, weightbearing exercises/stretching 01/19/21:no COVID vaccines yet. Has enbrel twice a week. Had steroids once since last office visit for joint pain flare. Needs elavil refilled, it helps her sleep. Taking advil. Reports pain 11/11. Minimal Am stiffness. Chronic pain in hands/back/legs. Jaw pain better. More raynauds worse with A/C. Better with gloves. More R index deviated. L 5th finger chronically flexed, surgery for finger 11/2020. Now has diabetes. Taking neurontin. Feels safe at home. Has enough food, supplies. Overall mildly uncomfortable but happy with rheum care. No falls/fx/trauma/illness/oral sores/rash/hairloss/jaw pain/dysphagia/epistaxis/hemoptys is since last visit. No adverse effects with meds. No other complaints. Patient denies fever, chills, cp, dyspnea, nausea, vomiting, night sweats, scalp tenderness, visual changes, cadena, bowel/bladder changes, weight changes or other complaints. Last visit supportive care, see primary care provider for depression care, increase flexeril prn, increase prn neurontin, see derm, see GI, biotene products, follow up with ortho for s/p L CTS care/possible L thumb/wrist ganglion cyst care, on cardizem per PCP/ok to increase for winter, raynauds general measures, wear heated hand glove liners, for flares take prednisone ashanti, f/u ENT for TMJ growth/pain, f/u with PCP/neurology for memory changes, f/u spine/PT, enbrel 50mg sq injection TWICE a week since 08/2015 since SSZ/methotrexate not tolerated, did discuss alternative biologics if high APRs, prn heat/ice/otc arthritis creams, unable to wear wrist braces due to thumb pain, director long 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 Due for neck epidural soon. More hand pain. Falls occasionally due to balance. Difficulty holding phone. No response with voltaren. Had dexamethasone but kept her up at night for days, with mild response with hands. Taking neurontin 1cap in AM and noon, 2caps at night has leg cramps. Taking flexeril 1 tab in AM and non, 2caps at night. Tried over the counter supplement for cramps. Feels safe at home. Has enough food, supplies and medications. TMJ stable. Oral sores better. Did not have ganglion cysts removed due fo pandemic. Reports pain -12/11. Extended AM stiffness. raynauds stable, not interested in COVID vaccine, Overall mildly uncomfortable but happy with rheum care. No fx/trauma/illness/oral sores/rash/hairloss/jaw pain/dysphagia/epistaxis/hemoptys is since last visit. No adverse effects with meds. No other complaints. Patient denies fever, chills, cp, dyspnea, nausea, vomiting, night sweats, scalp tenderness, visual changes, cadena, bowel/bladder changes, weight changes or other complaints. Last visit supportive care, see derm, see GI, biotene products, follow up with ortho for s/p L CTS care/possible L thumb/wrist ganglion cyst care, on cardizem per PCP/ok to increase for winter, raynauds general measures, wear heated hand glove liners, for flares take prednisone ashanti, f/u ENT for TMJ growth/pain, f/u with PCP/neurology for memory changes, f/u spine/PT, enbrel 50mg sq injection TWICE a week since 08/2015 since SSZ/methotrexate not tolerated, did discuss alternative biologics if high APRs, prn heat/ice/otc arthritis creams, unable to wear wrist braces due to thumb pain, director long term care pain recommendations per pain clinic/improved with SI injections, weightbearing exercises/stretching 01/12/20:had 3RFAs for low back pain, not sure if working/helping yet. TMJ better with prednisone. Feet/ankles R>L swelling from CCB, but stopped and no more swelling. Oral sores, worse after accidental biting. Worse raynauds white fingers. R great toe aches. Reports pain 8/10. Minimal AM stiffness. Two ganglion cyst due for removed. S/p L CTS release. Not sure if enbrel still working or if the increased stress has made her symptoms worse. Usually stays at home. Feels safe at home. Has enough food, supplies and medications. Overall mildly uncomfortable but happy with rheum care. No falls/fx/trauma/illness/oral sores/rash/hairloss/jaw pain/dysphagia/epistaxis/hemoptys is since last visit. No adverse effects with meds. No other complaints. Patient denies fever, chills, cp, dyspnea, nausea, vomiting, night sweats, scalp tenderness, visual changes, cadena, bowel/bladder changes, weight changes or other complaints. Last visit supportive care, see derm, see GI, biotene products, follow up with ortho for s/p L CTS release/possible L thumb/wrist ganglion cyst care, on cardizem per PCP/ok to increase for winter, raynauds general measures, wear heated hand glove liners, for flares take prednisone ashanti, f/u ENT for TMJ growth/pain, f/u with PCP/neurology for memory changes, f/u spine/PT, enbrel 50mg sq injection TWICE a week since 08/2015 since SSZ/methotrexate not tolerated, prn heat/ice/otc arthritis creams, unable to wear wrist braces due to thumb pain, director long term care pain recommendations per pain clinic/improved with SI injections, weightbearing exercises/stretching 07/24/19;had SI low steroid injections improved bilaterally ankle swelling and made it easier for her to get up out of bed. The ankle swelling not improved with oral prednisone. On neurontin/cardizem. [place] worse when she ran out of acyclovir from neurology. Had L cts release 02/2019 with minimal response. May have L thumb/wrist ganglion cyst removal in future. Taking enbrel. Not taking vitamin b12. Tired. Reports pain /10. Minimal Am stiffness. Overall mildly uncomfortable but happy with rheum care.No falls/fx/trauma/illness/oral sores/rash/hairloss/jaw pain/dysphagia/epistaxis/hemoptys is since last visit. No adverse effects with meds. No other complaints. Patient denies fever, chills, cp, dyspnea, nausea, vomiting, night sweats, scalp tenderness, visual changes, cadena, bowel/bladder changes, weight changes or other complaints. Last visit supportive care, see derm, see GI, biotene products, follow up with ortho for L CTS release fall 2017, on cardizem per PCP/ok to increase for winter, raynauds general measures, wear heated hand glove liners, for flares take prednisone ashanti, f/u ENT for TMJ growth/pain, f/u with PCP/neurology for memory changes, f/u spine/PT, enbrel 50mg sq injection TWICE a week since 08/2015 since SSZ/methotrexate not tolerated, prn heat/ice/otc arthritis creams, unable to wear wrist braces due to thumb pain, f/u with ortho for cts care, correction pain recommendations per pain clinic/PCP, weightbearing exercises/stretching 01/09/19:had a flares of hand pain better with prednisone. S/p L CTS 2weeks and had scar of L index fingertip scar. Still has numbness and tingling of fingers. In OT/PT now. Fingertip split when cold, on cardizem, hand warmers. 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 Back on rheum meds. Whit dots and wart on back of hands. Sees pain clinic. Same neck and low back pain. Reports pain 10. Minimal AM stiffness. Overall mildly uncomfortable but happy with rheum care. No falls/fx/trauma/illness/oral sores/rash/hairloss/jaw pain/dysphagia/epistaxis/hemoptys is since last visit. No adverse effects with meds. No other complaints. Patient denies fever, chills, cp, dyspnea, nausea, vomiting, night sweats, scalp tenderness, visual changes, cadena, bowel/bladder changes, weight changes or other complaints. Last visit supportive care, consult derm, consult GI, start biotene products, follow up with ortho for L CTS release fall 2018, on cardizem per PCP/ok to increase if needed, raynauds general measures, if needed wearing heated hand glove liners, for flares take prednisone ashanti, f/u ENT for TMJ growth/pain, f/u with PCP/neurology for memory changes, f/u spine/PT, enbrel 50mg sq injection TWICE a week since 08/2015 since SSZ/methotrexate not tolerated, prn heat/ice/otc arthritis creams, unable to wear wrist braces due to thumb pain, f/u with ortho for cts care, correction pain recommendations per pain clinic/PCP, weightbearing exercises/stretching, 01/17/18:has not missed enbrel. primary care provider started BP medication cardizem. Worsening dry mouth. raynauds stable. Summertime 2017 wart like bumps on hands/forearms crawl up arms. More numbness of L>R hand, episodes on thighs and abdomen. Due L CTS release fall 2017. Occasional food getting stuck swallowing. Vomits at night/sleeping. Building playground for 2y/o grandson. Reports pain 10. Minimal AM stiffness. Does exercises at home. Overall mildly uncomfortable but happy with rheum care. No falls/fx/trauma/illness/oral sores/rash/hairloss/jaw pain/dysphagia/epistaxis/hemoptys is since last visit. No adverse effects with meds. No other complaints. Patient denies fever, chills, cp, dyspnea, nausea, vomiting, night sweats, scalp tenderness, visual changes, cadena, bowel/bladder changes, weight changes or other complaints. Last visit supportive care, on cardizem per PCP/ok to increase if needed, start raynauds general measures, start wearing heated hand glove liners, for flares take prednisone ashanti, f/u ENT for TMJ growth/pain, f/u with PCP/neurology for memory changes, f/u spine/PT, enbrel 50mg sq injection TWICE a week since 08/2015 since SSZ/methotrexate not tolerated, prn heat/ice/otc arthritis creams, unable to wear wrist braces due to thumb pain, f/u with ortho for cts care, correction pain recommendations per pain clinic/PCP, weightbearing exercises/stretching 05/10/17:reports 6/10 mid-lower back, bilateral hands/fingers, neck, constant, aching. Minimal AM stiffness. here for raynaud's ulcer on her left hand middle digit by PIP started last week. Fingers/toes painful and cold for last few months. Was on coreg, but PCP stopped med and started cardizem last week. Worse with band-aid. Has not tried heated gloves. Has not missed enbrel. Sees pain clinic, last injections did not help. Overall mildly uncomfortable but happy with rheum care. No falls/fx/trauma/illness/oral sores/rash/hairloss/jaw pain/dysphagia/epistaxis/hemoptys is since last visit. No adverse effects with meds. No other complaints. Patient denies fever, chills, cp, dyspnea, nausea, vomiting, night sweats, scalp tenderness, visual changes, cadena, bowel/bladder changes, weight changes or other complaints. 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 Had xrays of L wrist/hand showing prior fracture, she does not recall prior trauma. Has not missed enbrel twice a week injections. Overall mildly uncomfortable but happy with rheum care. No falls/fx/trauma/illness/oral sores/rash/hairloss/jaw pain/dysphagia/epistaxis/hemoptys is since last visit. No adverse effects with meds. No other complaints. Patient denies fever, chills, cp, dyspnea, nausea, vomiting, night sweats, scalp tenderness, visual changes, cadena, bowel/bladder changes, weight changes or other complaints. Last visit supportive care, start prednisone ashanti, f/u ENT for TMJ growth/pain, f/u with PCP/neurology for memory changes, f/u spine/PT, enbrel 50mg sq injection TWICE a week since 08/2015 since SSZ/methotrexate not tolerated, prn heat/ice/otc arthritis creams, unable to wear wrist braces due to thumb pain, f/u with ortho for cts care, correction pain recommendations per pain clinic/PCP, weightbearing exercises/stretching 09/28/16:reports /10 lower back, left wrist, left side of breast, constant, aching. minimal AM stiffness. Not seen since 12/2015. Had illness 07/2016 but did not see PCP. Did hold 3 enbrel injections. Afraid to hold enbrel too long due to fear of getting a bad joint pain flare. Still very tired/exhausted since illness. Joint pain better with twice a week enbrel. Had severe jaw pain, went to ED twice, not helpful. Now with right chest bone pain lately. Does well with steroids. No steroids since last OV. Overall doing ok and happy with care. No falls/fx/trauma/illness/oral sores/rash/hairloss/jaw pain/dysphagia/epistaxis/hemoptys is since last visit. No adverse effects with meds. No other complaints. Patient denies fever, chills, cp, dyspnea, nausea, vomiting, night sweats, scalp tenderness, visual changes, cadena, bowel/bladder changes, weight changes or other complaints. Last visit supportive care, f/u ENT for TMJ growth/pain, f/u with PCP/neurology for memory changes, f/u spine/PT, enbrel 50mg sq injection TWICE a week since 08/2015 since SSZ/methotrexate not tolerated, prn heat/ice/otc arthritis creams, unable to wear wrist braces due to thumb pain, f/u with ortho for cts care, director long term care pain recommendations per pain clinic/PCP, weightbearing exercises/stretching 12/16/15:reports had injection with pain mgt RLE sciatica better, but now has pain coming from Right SI joint. Fell last week RLE gave out, fell on buttocks. Will see pain clinic for further injections. Used to have neck pain, better now. Approved for enbrel twice a week in 08/2015. Has not missed enbrel. Low back pain 12/11. Minimal AM stiffness. TMJ better. Had eye exam last week. Blurry R eye off and on. Will f/u with eye exam again soon. Able to work 3 good hrs a day. Built screen around front porch and back deck area by herself. Numbness and tingling of hands ok. Still has some memory changes. Unsure what vit D dose she is taking or if she completed BMD yet. Overall doing ok and happy with care. No fx/trauma/illness/oral sores/rash/hairloss/jaw pain/dysphagia/epistaxis/hemoptys is since last visit. No adverse effects with meds. No other complaints. Patient denies fever, chills, cp, dyspnea, nausea, vomiting, night sweats, scalp tenderness, visual changes, cadena, bowel/bladder changes, weight changes or other complaints. Last visit supportive care, consult ENT for TMJ growth/pain, f/u with PCP/neurology for memory changes, f/u spine/PT, scheduled for emg/xrays, enbrel 50mg sq injection once a week (increase twice a week if approved since SSZ/methotrexate not tolerated), prn heat/ice/otc arthritis creams, unable to wear wrist braces due to thumb pain, f/u with ortho for cts care, director long term care pain recommendations per pain clinic/PCP, weightbearing exercises/stretching See notes 07/14/20-08/12/15 for details on prior visits 08/12/15:had EMG with mild CTS. More memory changes lately. Had good response with prednisone for 1-2weeks. Has not missed enbrel. Adverse effects with SSZ and methotrexate/no response. Reports 5/10 lower back, constant. Minimal AM stiffness. More b/l leg cramps at night. Not better with increase of neurontin. Noticed swelling of L TMJ area/painful lump. Chronic memory changes, did not remember phone call about results (and difficulty remembering results discussed at this OV at the end of OV.) Has not seen neurology. Back pain better with injections. Overall doing ok and happy with care. No falls/fx/trauma/illness/oral sores/rash/hairloss/jaw pain/dysphagia/epistaxis/hemoptys is since last visit. No adverse effects with meds. No other complaints. Patient denies fever, chills, cp, dyspnea, nausea, vomiting, night sweats, scalp tenderness, visual changes, cadena, bowel/bladder changes, weight changes or other complaints. Last visit supportive care, start trial pred ashanti, consult spine/PT, check emg/xrays, enbrel 50mg sq injection once a week, prn heat/ice/otc arthritis creams, unable to wear wrist braces due to thumb pain, f/u with ortho for cts care, director long term care pain recommendations per pain clinic/may consider increasing neurontin, weightbearing exercises/stretching 06/11/15 HPI: here for eval Moving care closer to home. Neck pain started mid 20s Back pain started Finger pain started 30years ago 2005 developed R foot numbness, spinal cord pinch, same still -dx by Lyndsay approx 5 years ago Pain c/o pain and stiffness, 11/11, tailbone constant ache, increse stiffness with sitting numbness hands when driving Sees pain clinic in [place] c/o left neck pain; states bilat arms buzzing and go numb constant 10/28/14 1. Anklylosing spondylitis / axial spondyloarthritis Sero-negative History of treatment with hydroxychloroquine and methotrexate without benefit Had unknown reaction to sulfasalazine more back days on humira 2006 Currently on Enbrel 2006-present Difficult to assess which symptoms are due to inflammatory disease and which are due to degenerative disease and / or chronic pain issues 2. Cervical spondylosis/DDD 3. Lumbar spondylosis/DDD 4. Osteoarthritis 5. Chondrocalcinosis of R knee Post-traumatic 6. Chronic pain She is being treated aggressively for this. 7. Osteoarthritis hips 05/16: R KATIA, 09/15: L KATIA 8. ? Vascular insufficiency 9. Palpitations Mild tachycardia 10. Hypertension 11. Syncope Cardiology and Neurology evaluations done 12. Nodules on fingers 13. Right wrist painMay be tendinous Appears to be benign RHEUM. ROS: Joint pain: yes -neck, low back, fingers Joint swelling: fingers Am stiffness: yes Low back pain: yes- back injections, completed PT Enthesopathy/Dalton's/heel/plant ar tenderness: s/p R cts 1990s Alpecia, patchy: yes 10years Eye inflammation: contacts, 2009 R iritis (has had more than once);last eyes exam 06/2014 [facility]: dry eyes/mouth GI problems-diarrhea/bleeding/IBD/Gl uten intolerence/Dysphagia: gerd Raynaud's phenomenon/digital ulcers: yes- white/red Organ inv-Serositis: childhood asthma Lung disease/ILD:childhood asthma Fatigue: yes, sleeps 8hr/night PMR/GCA ROS: negative Other ROS:The remainder of the review of systems is negative. 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 There is no acute osseous, articular, or soft tissue abnormality. [facility] 11/25/24 high glucose 198;low hgb 11;normal rest of cmp, calcium 9.1, potassium 3.8, alkaline phosphatase 68, ast 15, alt 16, creat 0.89, vitamin D 60.7, wbc 6.5, plts 238, esr 18 (NL0-30mm/hr), crp<0.1 (normal<0.7mg/dL); 10/29/24 left forearm xray-Extensive chondrocalcinosis indicating CPPD with erosive change throughout the carpus 10/29/24 left elbow xrays-No fat pad sign is demonstrated. Alignment is intact. No fracture is visualized.There is focal soft tissue swelling over the proximal ulna. [facility] 09/11/24 low hgb 11.2normal cmp, potassium 4, creat 0.76, calcium 9, alkaline phosphatase 78, ast 16, alt 14, crp 0.4 (NL0-0.744mg/dL), vitamin D 54.8, esr 5 (NL0-30mm/hr), wbc 5.2, plts 286;negative quantiferon quantiferon tb Outside 08/2024 hand xrays-3 views of the hand were obtained. Degenerative changes are prominent at the first carpometacarpal region. The trapezium is displaced or removed. Hypertrophic marginal new bone formation is present. There is generalized demineralization. Distal interphalangeal joint degenerative changes are present with marginal new bone formation greatest dorsally. No inflammatory erosions are present. There is some osseous irregularity along the dorsal aspect of the third metacarpal most likely benign. IMPRESSION: 1. Prominent degenerative changes and possible postoperative findings at the first carpometacarpal joint. No acute abnormality suggested. 2. Changes of osteoarthritis lateral joint. No definite inflammatory arthropathy. Outside 06/2024 wrist xrays-Progression of osteoarthrosis with more conspicuous chondrocalcinosis. No acute fracture or periosteal reaction. No osseous erosions. Osteopenia. IMPRESSION: Advanced osteoarthrosis with chondrocalcinosis. No acute osseous abnormality given the limitations of diffuse osteopenia. Outside 02/11/24 low wbc 3.8, hgb 11.3, mag 1.7;high cholesterol 246, hgba1c 7;normal cmp, plts 217, tsh 2.39; 12/25/23 high crp 1.1 (NL0-0.744mg/dL), glucose 140, vitamin b12>1500;low hgb 10.6normal cmp, potassium 3.8, creat 0.83, calcium 9, alkaline phosphatase 69, ast 15, alt 12, vitamin D 53.8, wbc 6.9, plts 317;negative quantiferon tb; [facility] 07/03/23 normal cmp, potassium 4.1, creat 0.81, glucose 71, calcium 9, alkaline phosphatase 74, ast 18, alt 16, crp 0.2 (NL0-0.744mg/dL), vitamin D 54.4, cbc, wbc 5.6, hgb 11.8, plts 272, esr 30 (normal 0-30mm/hr) 05/07/23 last dose cimzia 06/27/23 restart enbrel [facility] 02/16/23 normal vitamin D 58.2, glucose 85, crp 0.1 (normal 0-0.744mg/dL), esr 17, wbc 5, hgb 12.1, plts 230, cmp, creat 0.77, calcium 9, 01/2023 hip xrays-Post arthroplasty changes with intact bilateral hip prostheses Outside 12/2022 neck xrays-Multilevel facet arthropathy. Anterolisthesis of C3 on C4 measuring 2 mm, C4 on C5 measuring 2 mm, and C7 on T1 measuring 3 mm. Multilevel disc related degenerative disease most prominent at C5-6 and C6-7. 12/2022 shoulder xrays-Severe AC joint and glenohumeral joint arthritis. [facility] 11/07/22 low hgb 11.6;normal cmp, glucose 130, potassium 4, creat 0.94, calcium 9.2, alkaline phosphatase 5, ast 12, alt 18, vitamin D 53.2, esr 9 (NL0-30mm/hr), crp 0.1 (NL0-0.744mg/dL), wbc 7.9, plts 283; [facility]; 07/06/22 left hand xrays- advanced degenerative joint disease throughout the wrist with appearances most compatible with advanced osteoarthritis associated with with chondrocalcinosis. Osteoarthritis superimposed upon an underlying inflammatory arthropathy is possible given extensive abnormality involving wrist. Milder osteoarthritis within several of the DIP. [facility] 08/14/22 high vitamin b12>1500pg/mL;normal cmp, potassium 4.1, creat 0.84, glucose 74, calcium 8.8, alkaline phosphatase 47, ast 13, alt 20, crp<0.1 (0-0.74mg/dL), vitamin D 56.7, wbc 6.1, hgb 12.2, plts 252, esr 10 (NL0-30mm/hr);negative quantiferon tb; [facility] 11/18/21 borderline creat 1.03;NL rest of cmp, potassium 4.3, calcium 9.1, alkaline phosphatase 66, ast 17, alt 17, glucose 90, crp 0.5 (NL0-0.744mg/dl), vitamin D 64.5, wbc 5.3, hgb 11.8, plts 223, esr 18 (NL0-30mm/hr); 01/19/21 high glu 172;borderline esr 20 (25);NL crp 0.6 (0.9), cbc, cmp; outside 11/09/20 high creat 1.06;NL rest of cmp, wbc 4.9, hgb 12.8, plts 265; 07/14/20 high gluc 178, crp 0.9 (0.4), esr 25 (17);low vitamin B12-498 (403);NL vitamin D 40.8, rest of cbc, cmp;negative hepatitis panel, quantiferon tb; 01/12/20 normal cbc, cmp, esr 17 (25), crp 0.4, vitamin D 50.6, vitamin b12-403; 07/24/19 low vitamin b12-428;NL cbc, cmp, gluc 121, esr 25 (23), crp 0.6 (1), vitamin D 72.2; 01/09/19 high esr 23 (15), crp 1 (0.2);low vitamin b12-243;NL rest of cbc, cmp, vitamin D 71.8 (81.4), creatinine 0.87 (1.2), cmp, cbc, uric acid 4.8;negative quantiferon tb; 01/17/18 high creatinine 1.2 (0.99), vitamin D 81.4 (64.5);NL rest of cbc, cmp, esr 15, crp 0.2;negative pre[place] ifa, alek, quantiferon tb; 04/02/17 high potassium 5.2, creatinine 0.99 (0.9);NL rest of cbc, cmp, esr 17 (24), crp 0.2, vit D 64.5; [place] [facility] 08/04/16 low wbc 4.3;NL hgb 12.6, plts 231, esr 26 (NL0-30mm/hr);cmp, creatinine 0.96, calcium, 9.1, ast 14, alt 19, crp 0.4 (NL0-0.74mg/dL), vit D 37.5;negative quantiferon tb [place] 08/2016 L wrist xrays-1. No definitive acute osseous abnormalities.2. Suspect mild soft tissue swelling in the dorsum of the wrist.3. Degenerative and old posttraumatic changes as noted above. 4. Consider MRI of the wrist to further evaluate if there remains concern for an acute process.Degenerative changes of the first carpometacarpal articulation. Well-corticated ossific densities are identified adjacent to the ulnar styloid possibly related to remote trauma. Minimal protuberance adjacent to the physeal scar of doubtful clinical significance. This could also relate to remote trauma. Well-corticated ossific densities noted adjacent to the radial styloid as well with degenerative changes of the radiocarpal joint. If there is persistent pain in the anatomical snuffbox, recommend followup films in 7-10 days 08/12/15 TMJ xrays-Both mandibular condyles show normal excursion in the open and closed mouth views with the left condyle only partially occupying the condyloid fossa. Mild irregularity of the articular surface of the right mandibular condyle. 06/11/15 high esr 23(26);NL crp 0.3, cbc, cmp, vit D 37; 06/11/15 cervical spine xrays-Degenerative changes of the cervical spine as detailed above.Endplate degenerative changes most pronounced at C5-6.Neural foraminal narrowing most pronounced at C5-6 and C6-7 on the right 10/28/14 NL lfts, cbc, creat 1.01, crp 0.5; 10/2014 R wrist xrays-There are postsurgical changes of previous trapezium resection. Appearance is unchanged from 10/08/09. A few small residual bone fragments are noted in the area of resection. 01/2014 negative RF 10 09/18/13 low hgb ; 08/2013 negative [facility]ST[facility], lupus anticoag panel;NL c3, c4; 04/2013 hip xrays-significant progression joint space loss bilaterally, disruption of the subchondral plates, enlargement of the left acetabular roof cyst and surrounding sclerosis and development of multiple right femoro- acetabular cysts. There also has been slight increase in facet sclerosis about the lower lumbar spine. An incidental finding is a small focus of calcification in the deep subcutaneous tissues of the proximal right thigh which may represent an area of fat necrosis and not felt to be clinically significant.IMPRESSIONSIGNIFICANT PROGRESSION OF BILATERAL DEGENERATIVE ARTHRITIS OF THE HIP JOINTS IN COMPARISON WITH AN EXAMINATION OF OVER 3 YEARS AGO. 03/2013 high esr 26; 11/2010 lumbar xrays-Lumbar spine: There is severe disk height loss at L5-S1 with endplate spurring, slightly progressed from the 2007. The remainder of the disks are relatively maintained. Small endplate spurs at L2-3 and L3-4. Multilevel mild facet joint degenerative changes. Vertebral body heights and alignment normal. 11/2010 hip xrays-Limited view of the pelvis incompletely demonstrates severe superolateral joint space narrowing of the left hip with a prominent acetabular subchondral cyst, more advanced compared to 10/08/2009. Sacroiliac joints are maintained. 11/2010 Thoracic spine xrays: There is disc height loss in the lower thoracic spine with endplate osteophytes, moderate to severe at T11-12, unchanged. Vertebral body heights are preserved. Limited view of the cervical spine again demonstrates mild C3 on C4 and C4 on C5 anterolisthesis, unchanged. Alignment is otherwise anatomic. IMPRESSION:1. NO ACUTE ABNORMALITY. 2. MARKED DEGENERATIVE DISC DISEASE L5-S1. 3. MODERATE MARKED DEGENERATIVE DISEASE T11-12.4. DEGENERATIVE ARTHRITIS IN BOTH HIPS 09/2007 negative hla b27 07/2007 negative rf, ccp, preston ifa, preston, dsdna<12, hepatitis panel Additional pertinent test results reviewed in medical chart PHYSICAL EXAM reviewed vitals from last visit BP 112/74 Pulse 81 Wt 205 lb 6.4 oz (93.2kg) SpO2 94% LMP 05/12/2006 BP 143/88 Pulse 94 Wt 75.9 kg (167 lb 5.3 oz) LMP 05/12/2006 BMI 24.71 kg/m General Appearance: WD/WN, NAD. Appropriate grooming. Very pleasant. Slender. Sitting at home, denies SI/HI, very uncomfortable, SKIN: No rash, no psoriasis, no purpura, no ulcers, no skin thickening/tightness, no telangiectasias. HEENT: No patchy alopecia, normal temporal artery pulsations, non-tender, scalp non-tender, no conjunctival injection or icterus, no oral ulcers, no thrush, normal nasal mucosa, no sinus tenderness, normal TM's. Yes contacts, fair dentition NECK: no visible thyromegaly or LAD. EXTREMITIES: No clubbing,discoloration,sclerodact yly, periungual erythema, digital ulcers, nail pitting, edema, varicosities. MUSCULOSK: s/p b/l THR, s/p L CTS, s/p L index fingertip scar tissue removed No joint deformities, no rheumatoid nodules, calcifications or tophi. No SI tenderness, no nettie's tenderness, no heel/plantar tenderness, lumbar flexion full, 3inches neck to wall Back flexion 12inches [place] JTS:L wrist, L forearm nodule, R 2nd/3rd MCPs, R 2nd/3rd fingers, R>L hands, two cysts on L wrist Tend. JTS:L wrist, L forearm, 2nd/3rd MCPs, R 2nd/3rd fingers, R>L hands/wrists, lumbar back, cervical area/limited range of motion, less R chest wall/bone pain, R SI joint area;decreased range of motion of neck and back due to pain;no warmth/erythema No clinical synovitis in the DIP's, PIP's, MCP's, wrists, elbows, shoulders, knees, ankles, midfoot, or toes. no knee effusions bilateral. 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 Wrist swelling, left M25.422 Elbow swelling, left M54.2 Cervicalgia R20.2 Paresthesia of both hands H53.8 Blurry vision, bilateral M11.89 Pseudogout involving multiple joints M15.3 Secondary osteoarthritis of multiple sites M54.50, G89.29 Chronic bilateral low back pain without sciatica M53.3, G89.29 Chronic sacroiliac joint pain Z79.899 Long-term use of high-risk medication 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, multiple sites 64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[employer] with PMH:venous insufficiency, htn, s/p tubal ligation, palpitations, 05/2013 s/p R THR, 09/2013 s/p L THR, s/p R cts 1990s, 2009 R iritis (has had more than once), gerd, childhood asthma, uterine fibroids presents Neck pain started mid 20s, Back pain started , Finger pain started 30years ago 2005 developed R foot numbness, spinal cord pinch, same still, diagnosed with 2009, has numbness and tingling of hands/arms with certain positions, chronic neck/back pain/limited range of motion, djd on imaging, high esr, limited neck to wall/limited spinal flexion, negative hla b27, has findings with history of seronegative inflammatory arthritis/ankylosing spondylitis, repeated R eye iritis, djd, cervicalgia, lumbago, possible cts, here with L TMJ bony growth/painful, chronic memory changes, chronic back pain, R SI joint area, history of costochondritis, raynaud's symptoms, numbness of L>R hand, episodes on thighs and abdomen, more dry mouth, food getting stuck swallowing, had a flares of hand pain better with prednisone. S/p L CTS 2weeks and had scar of L index fingertip scar. Still has numbness and tingling of fingers. had SI low steroid injections improved bilaterally ankle swelling and made it easier for her to get up out of bed. The ankle swelling not improved with oral prednisone. [place] worse when she ran out of acyclovir from neurology. Had L cts release 02/2019 with minimal response. Taking enbrel. had 3RFAs for low back pain, not sure if working/helping yet. TMJ better with prednisone. Feet/ankles R>L swelling from CCB, but stopped and no more swelling. raynauds white fingers/same. S/p L CTS release. no response with last neck injection. Falls occasionally due to balance. Difficulty holding phone. No response with voltaren. Had dexamethasone but kept her up at night for days, with mild response with hands. Tried over the counter supplement for cramps. TMJ stable. Oral sores better. Did not have ganglion cysts removed due fo pandemic.elavil helps her sleep. More raynauds worse with A/C. Better with gloves. More R index deviated. L 5th finger chronically flexed, surgery for finger 11/2020. Now has diabetes. had COVID19 infection end of 2020, no antibody infusion, treated with steroids,Had Lost 60lbs. 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 No COVID, flu vaccine. Stopped advil since it gave her headaches. Taking tylenol. back injection of steroids in the past. Was off enbrel for a months due to insurance and felt worse and more pain all over.in past Left forearm wound, infected 2days later when to ED, treated with oral antibiotics, tetanus injections, xrays negative for fracture. Fall a lot, due to crystals brain. Seeing neurology. 03/04/23 recent oral steroids. Saw shoulder injections 12/2022 and 04/06/23 left wrist steroid injections with some response. 70% improvement from cimzia. Saw ortho offered cleaning left wrist and fusion but patient declined. limited exercise due to pain. taking flexeril, gabapentin, elavil, off vitamin D script, enbrel (but insurance only approves 50mg sq injection once a week even if patient was better with twice a week for years) just started recent oral steroids. 3-4months ago eye exam, worsening cataracts.. Raynauds better with warmer weather, no digital ulcers. Fell a few times. 01/18/24 left shoulder injection 12/25/23 seen for neck pain 12/25/23 high crp 1.1 (NL0-0.744mg/dL), glucose 140, vitamin b12>1500;low hgb 10.6normal cmp, potassium 3.8, creat 0.83, calcium 9, alkaline phosphatase 69, ast 15, alt 12, vitamin D 53.8, wbc 6.9, plts 317;negative quantiferon tb; 11/30/23 had right shoulder injection [facility] 07/03/23 normal cmp, potassium 4.1, creat 0.81, glucose 71, calcium 9, alkaline phosphatase 74, ast 18, alt 16, crp 0.2 (NL0-0.744mg/dL), vitamin D 54.4, cbc, wbc 5.6, hgb 11.8, plts 272, esr 30 (normal 0-30mm/hr) 05/07/23 last dose cimzia 06/27/23 restart enbrel 50-75% improvement from enbrel, pain in R hand now claw like, unable close and flatten, L>R hips, low back, legs cramp . More neck crunching, left hip popping(10years since hip surgery). Raynauds better with warmer weather, no digital ulcers. Outside 03/26/24 low hgb 11.1;high glucose 142, vitamin b12>1500;normal rest of cbc, cmp, vitamin D 54.4; Outside 02/11/24 low wbc 3.8, hgb 11.3, mag 1.7;high cholesterol 246, hgba1c 7;normal cmp, plts 217, tsh 2.39; Insurance denied enbrel. 03/21/24 reports The fingers of my right hand are becoming difficult to straighten, the middle one is worse, it really hurts too. Two weeks ago I had two shots between my shoulder blades to stop the pain from my neck shooting down my arm That finger and the index finger are also becoming twisted. If I remain in one position for too long, all my muscles and joints feel as if they ve turned into cement, I have to work out the kinks before I can move. Once I bent over and could not stand back up, 10-30% improvement from cosentyx. limited exercise due to pain. Fingers and DIP and swelling. Chronic current pain in hands and fingers twisting, neck, hips (THR 11yrs ago). labs in 3months. taking elavil, biotin, colchicine, flexeril, enbrel since 06/2024 started working by 08/2024 was better when twice a week/not approved, gabapentin, prilosec. Last cosentyx dose 2023 no response. Yes pseudogout attacks, left wrist. 2weeks ago recent oral steroids with good response. no eye issues. [facility] 11/25/24 high glucose 198;low hgb 11;normal rest of cmp, calcium 9.1, potassium 3.8, alkaline phosphatase 68, ast 15, alt 16, creat 0.89, vitamin D 60.7, wbc 6.5, plts 238, esr 18 (NL0-30mm/hr), crp<0.1 (normal<0.7mg/dL); [facility] 09/11/24 low hgb 11.2normal cmp, potassium 4, creat 0.76, calcium 9, alkaline phosphatase 78, ast 16, alt 14, crp 0.4 (NL0-0.744mg/dL), vitamin D 54.8, esr 5 (NL0-30mm/hr), wbc 5.2, plts 286;negative quantiferon tb 70% improvement from enbrel. limited exercise due to pain. Left elbow and left wrist swelling. Chronic current pain in hands, wrists, Left elbow, neck ,spine. Since last visit fell in bath tub, no fracture. Reports pain 12/11. Has moderate minimal AM stiffness. Interested in possible surgery for left wrist and left forearm nodule. Feels safe at home. Has enough food, supplies and medications. Overall mildly uncomfortable but happy with rheum care. Will complete workup for reported symptoms = supportive care, labs in 3months, consult ophthalmology, consult hand ortho/interested in possible surgery already s/p L CTS care, bmd, tolerated colchicine twice a day, improved with gabapentin/increase to 600mg 3-4caps per day, check US of hands to clarify if pain is from pseudogout/inflammatory arthritis/osteoarthritis, may start methotrexate and folic acid if symptoms persist/worsens, restart fall precautions, see neurology for dizziness/crystals care, see primary care provider for depression care/concern about low glucose, flexeril prn, prn neurontin, see derm, see GI, biotene products, was on cardizem per PCP/OFF not raynauds general measures, wear heated hand glove liners, for flares take prednisone [place], f/u ENT for TMJ growth/pain, f/u spine/PT, tolerating cimzia as instructed, improved with enbrel 50mg sq injection once a day, better with TWICE a week since 08/2015 (not approved for twice a week), since SSZ/methotrexate not tolerated, did discuss alternative biologics if high APRs, prn heat/ice/otc arthritis creams, unable to wear wrist braces due to thumb pain, 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 RECOMMENDATION/PLAN: Office Visit on 12/01/24 DXA-FOREARM SKELETON DXA-AXIAL SKELETON BD DXA TRABECULAR BONE SCORE (TBS) CONSULT TO ORTHOPAEDICS CONSULT TO OPHTHALMOLOGY Reviewed labs/tests with patient Provided printed info 12/01/24 check cmp, cbc, esr, crp, vit D every 3months, printed orders, yearly quantiferon tb Modified12/01/24 [place] 0, pain 70%;03/29/24 [place] 0, pain 80%;01/17/24 [place] 0, pain 80%;04/06/23 [place] 0, pain 70%;08/28/22 [place] 0, pain 70%;11/11/21 [place] 0, pain 70%;01/19/21 [place] 0, pain 60%;07/14/20 [place] 0, pain 60-70%;01/12/20 [place] 0, pain 80%;07/24/19 [place] 0, pain 70%;01/09/19 [place] 0, pain 60%;01/17/18 [place] 0, pain 70%;05/10/17 [place] 0, pain 50-60%;04/02/17 [place] 0, pain 70%;09/28/16 [place] 0, pain 50-70%;12/16/15 [place] 0, pain 70%;08/12/15 [place] 0, pain 50%;06/11/15 [place] 0.5, pain 60%; 08/12/15 precert increase of enbrel to twice a week May apply over the counter arthritis cream (biofreeze, icy hot, asper cream, tiger balm, capsacin, etc.) to painful joints up to four times a day. Avoid contact with eyes. May take ES acetaminophen 500mg every 4-6hours for joint pain. Do not exceed 3000mg /day. Decrease stress Improve sleep May apply heat/ice 20minutes on and off to areas of pain Avoid aggravating triggers If needed, may take Calcium 1000mg daily with food in DIVIDED doses If labs normal, Vitamin D 4000 International Units daily or script with food Vitamin b12 as instructed Neurontin/gabapentin as instructed OFF cardizem May apply nitrobid for raynauds as instructed, may cause headaches colchicine once to twice a day if tolerated, may cause diarrhea continue enbrel due to insurance denial Off Consentyx Please hold enbrel if on antibiotics or if you have any signs/symptoms of infection. 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 -Vitamin D supplementation recommended, optimal dose is the dose necessary to achieve Vitamin D 25-OH blood level in range of 40-60 ng/mL. (Vitamin D supplement in international units, is the dose necessary to achieve a Vitamin D 25-OH blood level in range of 40-60 ng/mL). -Recommended daily dose of calcium: 1200mg total a day in divided doses. Calcium from dietary sources, if not sufficient, or if with h/o calcium nephrolithiasis would recommend Calcium Citrate supplement, as it is recommended to avoid caclium carbonate products, which as main dietary calcium source. The after visit summary has information on dietary calcium and instructions on reading calcium label and converting the %DV to mg. -Regular weight-bearing and muscle-strengthening exercise -Avoidance of tobacco smoking, excessive alcohol intake and excessive caffeine intake. -Fall and fracture precautions -Continued regular dental follow up visits and good dental/gum care Stressed the importance of following up with PCP and specialists for his/her chronic diseases, health, CV, and cancer screening and continued care. Will follow disease activity/progression and adjust therapeutic regimen to disease activity and severity. Discussed medication dosage, usage, goals of therapy, and side effects. Available test results were reviewed An additional 20 minutes were spent outside of the patient visit to review records. Additional time spent with the patient to discuss their questions. Additional time spent with the patient devoted to discussing treatment strategy, planning, and implementation. Discussed findings, impression and plan with patient. Patient understands above plan; questions asked and answered. Patient agrees to plan as noted above. The above reflects my independent exam and review. I saw and examined the patient myself personally. Parts of the HPI, ROS, exam and impression/plan may have been copied from my personal previous clinical note and remain pertinent. Current changes have been made and documented today. Other parts or data were deleted if not relevant for today. Plan as outlined. Medical decision making was high complexity due to patient's, multiple symptoms, multiple advancing diseases.Total time spent on this visit, with more than 50% of time spent in video & audio (virtual) or phone or face to face with patient, in consultation, and in addition to Counseling and Coordination of Care, explanation of diagnosis, and planning of further management, I spent a total of 30 minutes on the date of the service which included preparing to talk with the patient, video & audio (virtual) or phone or [id number] patient care, completing clinical documentation, obtaining and/or reviewing separately obtained history, performing a medically appropriate examination, counseling and educating the patient/family/caregiver, ordering medications, tests, or procedures, communicating with other HCPs (not separately reported), independently interpreting results (not separately reported), communicating results to the patient/family/caregiver and care coordination (not separately reported) Follow up 6months, earlier if needed Recommendations to share with referring physician/Primary care physician : Dear Dr. Garcia : I had the pleasure of seeing your patient, . I have enclosed a copy of my clinic note with my assessment and recommendations for this patient. Recommendations for your consideration as you deem necessary: -Continuous follow up with Primary care physician for cardiovascular disease prevention, for age appropriate cancer screening and routine health maintenance and wellness, and infection precautions and age appropriate immunization recommended. Thank you for allowing me to participate in the care of your patient. Eugenio Ellis MD I will relay my findings and recommendations to the physician requesting the consult by letter/electronic shared medical records. cc Rafaela Umana MD;Dr.Jennifer Garcia [address] [facility] [id number] Answers submitted by the patient for this visit: Review of Systems Rheumatology (Submitted on 11/30/2024) Fever : No Recent unintentional weight change: No Eye pain: Yes Eye redness: Yes Vision Disturbance: Yes Eye Dryness: Yes Nosebleeds: No Sores in your mouth: No Trouble Swallowing: Yes Dry Mouth: Yes Chest pain: No Leg Swelling: No A cough: No Shortness of breath: Yes Pain with breathing: No Heartburn: Yes Abdominal pain: No Diarrhea: No Black tarry stools: No Blood in urine: No Pain or burning with urination: No Joint pain or stiffness: Yes Muscle weakness: Yes Muscle aches: Yes Joint swelling: Yes Morning Stiffness in Joints: Yes A rash: No Skin Color Changes: Yes Hair Loss: Yes Nail Changes: Yes Headaches: No Numbness: Yes Memory Loss: Yes Swollen Glands: No MYCHART AMBULATORY VISIT INTAKE QUESTIONNAIRE Question 11/30/2024 12:48 PM EDT - Filed by Patient Has the Patient Had 2 Falls in the Last Year or 1 Fall with Injury or Currently Using an Ambulatory Assistive Device (Walker, Cane, Wheelchair, Crutches, etc.) Yes, Patient High Risk for Falls, Notify provider if applicable Are you having pain associated with your visit today? Yes What is your Pain Level? 5 Pain Location Wrist-Left Description Aching Radiating Sharp Sore Stabbing Tenderness Tingling Duration Amount of Time Duration Units Years Frequency Intermittent Intervention/Comfort measure Medication Reposition Distractions Heat Imagery Positioning Rocking/holding Splinting Comments REDUCING YOUR RISK OF FALLING DURING AN MEDICAL APPOINTMENT Question 11/30/2024 12:48 PM EDT - Filed by Patient Fall Prevention Instructions Acknowledged [facility] ADDITIONAL DEMO Question 11/30/2024 12:48 PM EDT - Filed by Patient Is this visit related to an accident, other than Workers' Compensation? No Is this visit related to Workers' Compensation? No Do you need an cable wirer? No [facility] 2019 MSP: PART I AND EMPLOYMENT Question 11/30/2024 12:49 PM EDT - Filed by Patient Are you currently employed? No Do you have a spouse who is currently employed? No [facility] 2019 MSP: PART I Question 11/30/2024 12:49 PM EDT - Filed by Patient Medicare requires that we periodically ask the following questions. Are you receiving benefits under the Black Lung Benefits Act (BL)? No Was the illness/injury due to a work-related accident/condition? No Are you receiving treatment for an injury or illness covered under no-fault (and/or medical-payment coverage) including premises or automobile? No Are you receiving treatment for an injury, or illness, for which another libertarian may be liable? No [facility] 2019 MSP: PART II Question 11/30/2024 12:49 PM EDT - Filed by Patient Are you entitled to Medicare based on: Age? No Disability? Yes End-stage renal disease (ESRD)? No Patient-Entered Msp: [id number] Primary Branch Calculation (range: 0 - 5) 4 [facility] 2019 MSP: DISABILITY Question 11/30/2024 12:49 PM EDT - Filed by Patient Do you have group health plan (GHP) coverage based on your own current employment, or the current employment of either your spouse or another family member? No [facility] PROMIS CAT V2.0-PHYSICAL FUNCTION-28 DAYS Question 11/30/2024 12:50 PM EDT - Filed by Patient Does your health now limit you in doing two hours of physical labor? Cannot do Are you able to do chores such as vacuuming or yard work? With some difficulty Does your health now limit you in doing yard work like raking leaves, weeding, or pushing a lawn care professional? Quite a lot Are you able to carry a laundry basket up a flight of stairs? Unable to do PROMIS Physical Function T-Score (range: 10 - 90) 34 (moderate dysfunction) Abnormal PROMIS Physical Function Percentile (range: 0 - 100) 5 [facility] PROMIS CAT V1.0 - FATIGUE-28 DAYS Question 11/30/2024 12:50 PM EDT - Filed by Patient How often did you have to push yourself to get things done because of your fatigue? Always How run-down did you feel on average? Very much How fatigued were you on average? Quite a bit I have trouble starting things because I am tired Quite a bit PROMIS Fatigue T-Score (range: 10 - 90) 69 (moderate) Abnormal PROMIS Fatigue Percentile (range: 0 - 100) 3 [facility] PROMIS CAT V1.1-PAIN INTERFERENCE-28 DAYS Question 11/30/2024 12:51 PM EDT - Filed by Patient How much did pain interfere with your day to day activities? Very much How much did pain interfere with your ability to participate in social activities? Quite a bit How much did pain interfere with your enjoyment of social activities? Very much How much did pain interfere with your family life? Quite a bit PROMIS Pain Interference T-Score (range: 10 - 90) (range: 10 - 90) 71 (severe) Abnormal PROMIS Pain Interference Percentile (range: 0 - 100) 2 MYC RAPID 3 Question 11/30/2024 12:53 PM EDT - Filed by Patient Dress yourself, including typing shoelaces and doing buttons? With MUCH difficulty Get in and out of bed? With SOME difficulty Lift a full cup or glass to your mouth? With MUCH difficulty Walk outdoors on flat ground? With SOME difficulty Wash and dry your entire body? With SOME difficulty Bend down to roll picker clothing from the floor? With MUCH difficulty Turn regular faucets on and off? With SOME difficulty Get in and out of a car, bus, train, or airplane? With MUCH difficulty Walk tow miles or three kilometers, if you wish? UNABLE to do Participate in recreational activities and sports as you would like, if you wish? UNABLE to do Get a good night's sleep? With SOME difficulty Deal with feelings of anxiety or being nervous? With SOME difficulty Deal with feelings of depression or feeling blue? With SOME difficulty RAPID 3 Pain Level 7 RAPID 3 HOW DOING OVERALL 7.5 RAPID 3 Functional Status Score (range: 0 - 10) 6 PAIN LEVEL (range: 0 - 10) 7 Global Estimate (PTGE) (range: 0 - 10) 7.5 RAPID 3 CUMULATIVE SCORE (range: 0 - 30) 20.5 RAPID 3 Weighed Score (range: 0 - 10) 6.83 (High severity ) Abnormal Weighed Score Percentage Change Compared to Last (range: -500 - 500) -9.66 MYC RHEUM PHQ-9 Question 11/30/2024 12:55 PM EDT - Filed by Patient Over the past two weeks, how often have you been bothered by any of the following problems? Little interest or pleasure in doing things: Feeling down, depressed, or hopeless: PHQ-2 Score (range: 0 - 6) Incomplete PHQ-2<3, but PHQ-9 > 14 last 12 Mo (range: 0 - 1) 0 MYC PROMIS 10 ADULT SHORT FORM V1.0 GLOBAL HEALTH Question 11/30/2024 12:57 PM EDT - Filed by Patient In the past 7 days In general, would you say your health is: Fair Abnormal In general, would you say your quality of life is: Fair Abnormal In general, how would you rate your physical health? Fair Abnormal In general, how would you rate your mental health, including your mood and your ability to think? Poor Abnormal In general, how would you rate your satisfaction with your social activities and relationships? Poor Abnormal In general, please rate how well you carry out your usual social activities and roles. (This includes activities at home, at work and in your community, and responsibilities as a parent, child, spouse, employee, friend, etc.) Fair Abnormal To what extent are you able to carry out your everyday physical activities such as walking, climbing stairs, carrying groceries, or moving a chair? Moderately Abnormal In the past 7 days In the past 7 days, how often have you been bothered by emotional problems such as feeling anxious, depressed or irritable? Often Abnormal In the past 7 days, how would you rate your fatigue on average? Severe Abnormal In the past 7 days, how would you rate your pain on average? 7 Abnormal PROMIS Adult Short Form-Global Health Score (Physical) (range: 16 - 68) 32.4 (Poor) Abnormal PROMIS Adult Short Form-Global Health Score (Mental) (range: 21 - 68) 28.4 (Poor) Abnormal Myc Promis Gh Physical Score Compared To Last (range: -2 - 3) 3 (WITHIN +/- 5) Myc Promis Gh Mental Score Compared To Last (range: -2 - 3) 2 (LESS < or = 5) MYC PROVIDER UNDERSTANDING CURRENT HEALTH RHEUMATOLOGY Question 11/30/2024 12:57 PM EDT - Filed by Patient These questions will help my provider understand my health Agree documented in this encounter [facility] 12-01-2024 Miscellaneous Notes lab orders mailed to patient's home as requested Please Call [facility] to review results/released to My Chart if tests completed at F: Mildly low normal hemoglobin, high glucose- care per primary care provider. Normal rest of labs and no inflammation. Continue same vitamin D intake with food. Recheck nonfasting labs in 3months.The orders have been placed. Please send orders cmp, cbc, esr, crp, vitamin D. Orders in epic. Please fax results to rheum office. Thank you! Happy to further review and discuss at follow up visit. Thank you. [facility] 11/25/24 high glucose 198;low hgb 11;normal rest of cmp, calcium 9.1, potassium 3.8, alkaline phosphatase 68, ast 15, alt 16, creat 0.89, vitamin D 60.7, wbc 6.5, plts 238, esr 18 (NL0-30mm/hr), crp<0.1 (normal<0.7mg/dL); [facility] 09/11/24 low hgb 11.2normal cmp, potassium 4, creat 0.76, calcium 9, alkaline phosphatase 78, ast 16, alt 14, crp 0.4 (NL0-0.744mg/dL), vitamin D 54.8, esr 5 (NL0-30mm/hr), wbc 5.2, plts 286;negative quantiferon tb [facility] Results placed on your desk for review. documented in this encounter [facility] 12-01-2024 Telephone encounter Note lab orders mailed to patient's home as requested [facility] 11-28-2024 Telephone encounter Note Please Call patient if MyChart note not read to review results/released to My Chart if tests completed at [facility]: Mildly low normal hemoglobin, high glucose- care per primary care provider. Normal rest of labs and no inflammation. Continue same vitamin D intake with food. Recheck nonfasting labs in 3months.The orders have been placed. Please send orders cmp, cbc, esr, crp, vitamin D. Orders in epic. Please fax results to rheum office. Thank you! Happy to further review and discuss at follow up visit. Thank you. [facility] 11/25/24 high glucose 198;low hgb 11;normal rest of cmp, calcium 9.1, potassium 3.8, alkaline phosphatase 68, ast 15, alt 16, creat 0.89, vitamin D 60.7, wbc 6.5, plts 238, esr 18 (NL0-30mm/hr), crp<0.1 (normal<0.7mg/dL); [facility] 09/11/24 low hgb 11.2normal cmp, potassium 4, creat 0.76, calcium 9, alkaline phosphatase 78, ast 16, alt 14, crp 0.4 (NL0-0.744mg/dL), vitamin D 54.8, esr 5 (NL0-30mm/hr), wbc 5.2, plts 286;negative quantiferon tb [facility] 11-26-2024 Telephone encounter Note Received labs from [facility]. Results placed on your desk for review. [facility] 11-25-2024 History of Present illness Narrative [facility] [address] [place] [address] Patient: Rhona Garcia Sex: female : 1960 Age: 64 y.o. 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 Reports pain being mostly on left side now. Pain to her back and bilateral wrist remains unchanged. Left 1st CMC joint pain 02/11 and left elbow pain is much worse as well. Date of onset of pain: pain has lasted greater than 3 months. Pain scale before treatment: 5/10 Percentage and duration of relief after treatment: 80% relief followed by 75% relief that continues today Pain scale after treatment: 1-2/10 Chief Complaint Patient presents with Back Pain Neck Pain Wrist Pain HPI: PT/HEP 2018 Back: 06/21/18 oswaldo SI joint injection with no relief on left 75% temporary relief on right. Right SI RFA 01/09/2020 with no relief. 10/15/20 Right SI RFA with 75% relief 03/04/21 RFA Left L 4/5, 5/1 with 50% relief currently. 12/27/18 Caudal not helpful. left lumbar RFA w/75% relief Right SI joint injection on 04/22/2021 with 80% relief then went down to 50% relief. 05/23/21 Right RFA L 4/5, 5/1 with 50% relief. 02/17/22 Caudal with no relief reported. 08/26/2021 Right SI injection w/ 50% Right SI joint injection 03/17/2022 50% relief. 10/27/2022 Right Sacroiliac Injection with 75% relief continuing Right SI joint injection on 06/16/2022 with at least 50% relief. 07/21/22 Rt L 4/5 5/ RFA w/50% relief pre-proc pain pre-proc pain 7/10 post proc 08/11 until Jul 2023 08/04/22 Lt L 09/06 10/02 RFA w/50% relief pre-proc pain 8/10 post proc pain 4/10 until Jul 2023 01/26/23 Oswaldo SI Inj w/80% relief continued 07/19/2022 Bilateral Sacroiliac Joint injection with 85% relief x 2 hours, and 50% relief continuing today Bilateral SI joint injection 05/18/23 with 85% relief for 2 hours and 50% continued relief. 08/24/2023 Left L4/5, 5/ Radio Frequency Ablation with 80% relief continuing. Pre procedure pain 8/10. Post procedure pain 2/10/12/2023 Right L4/5, 5/1 Radio Frequency Ablation with 65% relief continuing. Pre procedure pain 8/10. Post procedure pain /10/31/24 right C56 NR injection with 80% relief followed by 75% relief that continues today Thumb: 09/22/22 Left CMC joint injection with 90% relief 01/18/24 First CMC joint injection with 90% relief that continues pre proc 6/10 post proc /09/05/24 Bilateral First CMC joint injection with 80% relief pre-proc pain 7/10 post proc 2/ Wrist 04/06/2023 left wrist injection with 50% relief that continues left wrist injection on 07/13/2023 with 80% relief. Pre-procedural pain was reported as 6/10 post proc pain is 2/10 Neck: 06/08/19 Left C5/6,6/7, 7/ no relief. JOANNE C 7/ on 07/16/20 w/75% relief. 02/29/2024 C JOANNE with 10% relief reported. Pre proc was 8/10 post proc and currently /04/11/24 left C5/6 6/7 MBB with 80% relief x1 week. 06/06/2024 Left C 5/6 6/7 MBB with 80% relief for 3 hours Pre-op pain score: 8/10 Post-op pain score: 2/10 1 hour post: 210 2 hour post: 10 4 hour post: 08/11 Right C56 NR injection with 80% relief followed by 75% relief that continues today. Pre proc pain 5/10 post proc 1-07/14 Shoulder right shoulder injection on 11/30/2023 with at least 80% relief. 10/03/24 right shoulder injection 80% relief that continues Neck Pain This is a chronic problem. The current episode started more than 1 year ago. The problem occurs intermittently. The problem has been gradually improving (since NR). The pain is associated with nothing. The pain is present in the midline and left side (left shoulder and left arm). The quality of the pain is described as aching, burning and stabbing. The pain is at a severity of 1/10. The pain is moderate. The symptoms are aggravated by coughing, position, stress, sneezing, swallowing, twisting and bending. Worse during: left side of neck is 9/10. Stiffness is present All day, in the morning and at night. Associated symptoms include weakness (BUE). Pertinent negatives include no chest pain, fever, headaches, leg pain, numbness or photophobia. She has tried acetaminophen, muscle relaxants and home exercises for the symptoms. The treatment provided mild relief. Back Pain This is a chronic problem. The current episode started more than 1 year ago (early ). The problem occurs constantly. The problem is unchanged. The pain is present in the sacro-iliac, lumbar spine and gluteal (across). The quality of the pain is described as aching. The pain does not radiate. The pain is at a severity of 2/10. The pain is moderate. The pain is The same all the time. Exacerbated by: prolonged standing, walking and sitting ; lying down, stairs, bending, twisting, pushing/pulliing, cough/sneeze, transitioing, cold/heat Stiffness is present All day (varies with activity). Associated symptoms include weakness (BUE). Pertinent negatives include no bladder incontinence, bowel incontinence, chest pain, fever, headaches, leg pain or numbness. Risk factors include sedentary lifestyle. Treatments tried: PT/HEP 2019 w/no relief, NSAIDsx3 (naproxen, motrin, ibuprofen), heat, Flexeril, Neurontin, Elavil & [place] w/ some relief, OTC Arnica cream w/ mod relief. The treatment provided moderate relief. Wrist Pain The pain is present in the left wrist, right wrist, left hand, right hand, right fingers, left fingers and left elbow (L>R). This is a chronic problem. The current episode started more than 1 year ago. There has been no history of extremity trauma. The problem occurs constantly. The problem has been gradually worsening. The quality of the pain is described as aching. Pain scale: left wrist 6/10, right wrist 3/10 left elbow 9/10 left hand 9/10. The pain is moderate. Pertinent negatives include no fever or numbness. The symptoms are aggravated by activity and contact. She has tried NSAIDS, heat and acetaminophen for the symptoms. The treatment provided mild relief. The effect of pain on patient's ADLS: Moderate Impairment. Past Medical History: Diagnosis Date Allergic 2005 Anemia 1970 Ankylosing spondylitis ([facility]) Asthma 1965 as a child Astigmatism contacts Back pain 1988 Benign ovarian tumor Carpal tunnel syndrome Cataract 2023 Cervical disc syndrome Chronic musculoskeletal pain Chronic pain disorder Depression 1988 Diabetes mellitus type 2, controlled (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 Fall after dizzy spell GERD (gastroesophageal reflux disease) 1999 Gout Heart palpitations Hypertension 1989 Joint pain Kidney failure Low back pain Lumbar disc disease Migraine 1999 Neck pain Neuropathy Osteoarthritis Pneumonia 1970 Pseudogout of hand bilateral Raynaud's disease Scleroderma ([facility]) Syncope Vertigo Past Surgical History: Procedure Laterality Date CARPAL TUNNEL RELEASE Right EXCISION MASS Left 12/26/2018 Performed by Higinio Okeefe MD at [facility] Right Thumb joint replacement INJECTION BLOCK EPIDURAL CAUDAL STEROID N/A 02/17/2022 Performed by Sky Hemphill MD at [facility] INJECTION BLOCK EPIDURAL CERVICAL/THORACIC: C 7/ joanne N/A 02/29/2024 Performed by Sky Hemphill MD at [facility] INJECTION BLOCK EPIDURAL CERVICAL/THORACIC: C71 JOANNE N/A 07/16/2020 Performed by Sky Hemphill MD at [facility] INJECTION BLOCK NERVE MEDIAL BRANCH: left C 5/6, 6/7 Left 06/06/2024 Performed by Sky Hemphill MD at [facility] INJECTION BLOCK NERVE MEDIAL BRANCH: left C 5/6, 6/7 Left 04/11/2024 Performed by Sky Hemphill MD at [facility] INJECTION BLOCK NERVE MEDIAL BRANCH: left C56 67 [id number] Left 06/18/2020 Performed by Sky Hemphill MD at [facility] IN[facility]CTION BLOCK SACROILIAC JOINT Bilateral 05/18/2023 Performed by Sky Hemphill MD at [facility] INJECTION BLOCK SACROILIAC JOINT Bilateral 01/26/2023 Performed by Sky Hemphill MD at [facility] IN[facility]CTION BLOCK SACROILIAC JOINT Right 10/27/2022 Performed by Sky Hemphill MD at [facility] INJECTION BLOCK SACROILIAC JOINT Right 03/17/2022 Performed by Sky Hemphill MD at [facility] INJECTION BLOCK SACROILIAC JOINT Right 08/26/2021 Performed by Sky Hemphill MD at [facility] INJECTION BLOCK SACROILIAC JOINT Right 04/22/2021 Performed by Sky Hemphill MD at [facility] INJECTION BLOCK SACROILIAC JOINT Right 10/15/2020 Performed by Sky Hemphill MD at [facility] INJECTION BLOCK SACROILIAC JOINT: Right 06/16/2022 Performed by Sky Hemphill MD at [facility] BURSA INTERMEDIATE Left Wrist Left 07/13/2023 Performed by Sky Hemphill MD at [facility] BURSA INTERMEDIATE Left wrist Left 04/06/2023 Performed by Sky Hemphill MD at [facility] BURSA LARGE JOINT: left CMC Left 09/22/2022 Performed by Sky Hemphill MD at [facility] BURSA LARGE JOINT: right shoulder Right 10/03/2024 Performed by Sky Hemphill MD at [facility] INJE[facility] BURSA LARGE JOINT: right shoulder Right 11/30/2023 Performed by Sky Hemphill MD at [facility] IN[facility] BURSA LARGE JOINT: right shoulder Right 02/16/2023 Performed by Sky Hemphill MD at [facility] BURSA SMALL JOINT Bilat 1st CMC Bilateral 09/05/2024 Performed by Sky Hemphill MD at [facility] INJECTION BURSA SMALL JOINT Left 1st CMC Left 01/18/2024 Performed by Sky Hemphill MD at [facility] BURSA SMALL JOINT: wrist injection Left 10/07/2018 Performed by Sky Hemphill MD at [facility] INJECTION CAUDAL EPIDURAL WITH CATHETER, STEROID N/A 2018 Performed by Sky Hemphill MD at [facility] LARGE JOINT BURSA: left ankle Left 10/22/2017 Performed by Sky Hemphill MD at [facility] MEDIAL BRANCH NERVE BLOCK: left L34 45 51 Left 11/18/2018 Performed by Sky Hemphill MD at [facility] INJECTION SACROILIAC NERVE Bilateral 04/21/2019 Performed by Sky Hemphill MD at [facility] SACROILIAC NERVE Left 11/01/2018 Performed by Sky Hemphill MD at [facility] SPINE TRANSFORAMINAL: right C 5,6 Nroot Right 10/31/2024 Performed by Sky Hemphill MD at [facility] JOINT REPLACEMENT Bilateral 2012 Both hips RADIO FREQUENCY ABLATION: left L34 45 [id number] Left 12/27/2018 Performed by Sky Hemphill MD at [facility] RADIO FREQUENCY ABLATION: left L34 4551 Left 10/31/2019 Performed by Sky Hemphill MD at [facility] RADIO FREQUENCY ABLATION: right L34 45 51 Right 10/17/2019 Performed by Sky Hemphill MD at [facility] RADIO FREQUENCY ABLATION: right SI Right 05/16/2019 Performed by Sky Hemphill MD at [facility] RADIO FREQUENCY ABLATION: right SI rfa Right 01/09/2020 Performed by Sky Hemphill MD at [facility] RADIOFREQUENCY ABLATION SPINAL: left C 5/6, 6/7 Left 07/18/2024 Performed by Sky Hemphill MD at [facility] RADIOFREQUENCY ABLATION SPINAL: left L 4/5 5/1 Left 08/04/2022 Performed by Sky Hemphill MD at [facility] RADIOFREQUENCY ABLATION SPINAL: left L 4/5 5/1 Left 03/04/2021 Performed by Sky Hemphill MD at [facility] RADIOFREQUENCY ABLATION SPINAL: left L 4/5, 5/1 Left 08/24/2023 Performed by Sky Hemphill MD at [facility] RADIOFREQUENCY ABLATION SPINAL: right L 4/5 5/1 Right 07/21/2022 Performed by Sky Hemphill MD at [facility] RADIOFREQUENCY ABLATION SPINAL: right L 4/5 5/ Right 05/23/2021 Performed by Sky Hemphill MD at [facility] RADIOFREQUENCY ABLATION SPINAL: right L 4/5, 5/ Right 10/12/2023 Performed by Sky Hemphill MD at [facility] RADIOFREQUENCY ABLATION SPINAL: right L34 45 51 Right 05/18/2017 Performed by Sky Hemphill MD at [facility] RADIOFREQUENCY ABLATION SPINAL: right SI Right 11/02/2017 Performed by Sky Hemphill MD at [facility] RADIOFREQUENCY ABLATION SPINAL: Right SI Right 03/05/2017 Performed by Sky Hemphill MD at [facility] RELEASE CARPAL TUNNEL Left 12/26/2018 Performed by Higinio Okeefe MD at [facility] REPAIR TENDON FINGER, 5th finger muscle repair Left 11/22/2020 Performed by Rahat Hirsch MD at [facility] TUBAL LIGATION 2006 Allergies Allergen Reactions Cinnamon Analogues Swelling Throat swells Coconut Swelling Throat swells Sulfa (Sulfonamide Antibiotics) Anaphylaxis ivp dye ok per pt noted for pain clinic House Dust Other reaction(s): Other: See Comments itching eyes, scratchy throat Oxycodone-Acetaminophen Other reaction(s): nightmares Darvocet A500 [Propoxyphene N-Acetaminophen] Other (See Comments) Nightmares Lactase GI Disturbance Shellfish Containing Products Abdominal Pain Ok for ivp dye per pt Noted for pain clinic Tizanidine (Bulk) Abdominal Pain Tree Nuts Abdominal Pain Family History Problem Relation Age of Onset Cancer Mother Lung cancer Mother Miscarriages / Stillbirths Mother Vision loss Mother Stroke Father Heart disease Father Mahan's palsy Sister Rheum arthritis Nephew Graves' disease Niece Arthritis Son Depression Son Hypertension Son Vision loss Son Miscarriages / Stillbirths Sister Social History Socioeconomic History Marital status: Single Spouse name: Not on file Number of children: Not on file Years of education: Not on file Highest education level: Not on file Occupational History Not on file Tobacco Use Smoking status: Never Smokeless tobacco: Never Vaping Use Vaping status: Never Used Substance and Sexual Activity Alcohol use: Not Currently Drug use: No Sexual activity: Not Currently Partners: Male control/protection: Post-menopausal, None Other Topics Concern Not on file Social History Narrative Not on file Social Drivers of Health Financial Resource Strain: Medium Risk (02/07/2024) Overall Financial Resource Strain (CARDIA) Difficulty of Paying Living Expenses: Somewhat hard Food Insecurity: No Food Insecurity (11/25/2024) Hunger Screening Food Insecurity - Worry: Never True Food Insecurity - Inability: Never True Transportation Needs: Unmet Transportation Needs (02/07/2024) PRAPARE - Transportation Lack of Transportation (Medical): Yes Lack of Transportation (Non-Medical): Yes Physical Activity: Sufficiently Active (03/19/2023) Received from [facility] Exercise Vital Sign Days of Exercise per Week: 4 days Minutes of Exercise per Session: 90 min Stress: No Stress Concern Present (03/19/2023) Received from [facility] [place] of Occupational Health - Occupational Stress Questionnaire Feeling of Stress : Only a little Social Connections: Socially Isolated (03/19/2023) Received from [facility] Social Connection and Isolation Panel [NHANES] Frequency of Communication with Friends and Family: Once a week Frequency of Social Gatherings with Friends and Family: Never Attends Yarsanism Services: Never Active Member of Clubs or Organizations: No Attends Club or Organization Meetings: Never Marital Status: Interpersonal Safety: Not At Risk (03/19/2023) Received from [facility] Humiliation, Afraid, Rape, and Kick questionnaire Fear of Current or Ex-Partner: No Emotionally Abused: No Physically Abused: No Sexually Abused: No Housing Instability: Low Risk (02/07/2024) Housing Instability Housing Instability: No Review of Systems Constitutional: Negative. Negative for fever. HENT: Negative. Eyes: Negative. Negative for photophobia. Respiratory: Negative. Cardiovascular: Negative. Negative for chest pain. Gastrointestinal: Negative. Negative for bowel incontinence. Endocrine: Negative. Genitourinary: Negative. Negative for bladder incontinence. Musculoskeletal: Positive for back pain and neck pain. Skin: Negative. Allergic/Immunologic: Negative. Neurological: Positive for weakness (BUE). Negative for numbness and headaches. Hematological: Negative. Psychiatric/Behavioral: Negative. Vital Signs: BP 133/81 (BP Site: Right Arm, BP Postition: Sitting) Pulse 100 Resp 18 SpO2 98% Physical Exam: GENERAL - Healthy patient that appears stated age. HEENT - Normocephalic / Atraumatic, Extraoccular movements intact, trachea midline, thyroid within normal limits. CV - pulse regular, Warm extremities with appropriate color of nailbeds. RESP - No obvious wheezing, No Shortness of Breath, No overexertion response to exam maneuvers. COORDINATION - remains intact. PSYCH - Alert and Oriented x4, Attentive and appropriate, constitutionally normal, displays normal mood and affect per situation, answered questions appropriately during examination, demonstrated appropriate attention during discussion, demonstrated appropriate cognitive reasoning and understanding of the medical condition by asking appropriate questions regarding the diagnosis and risks/benefits/alternatives of treatment modalities. No obvious deficits in memory, reasoning, or intellect. Distal Joint Exam - Upper Extremity: SKIN - No rashes or bruising in the area of the patient s pain. EXTREMITIES - Upper extremities are warm, with minimal edema and palpable pulses. STRENGTH is 5/5 all muscle groups of the bilateral upper extremities. There is no obvious atrophy, fasciculations, or spasms. There are no notable sensory deficits in the overlying dermatomal distributions. Examination of the Left elbow reveals tenderness to palpation over the medial and lateral epicondyle. Mild swelling is noted without significant erythema. Pain is elicited with pronation and supination of the elbow as well as with flexion and extension. Distal Joint Exam - Upper Extremity: SKIN - No rashes or bruising in the area of the patient s pain. EXTREMITIES - Upper extremities are warm, with minimal edema and palpable pulses. Strength is 5/5 all muscle groups of the bilateral upper extremities. There is no obvious atrophy, fasciculations, or spasms. There are no notable sensory deficits in the overlying dermatomal distributions. Examination of the Left 1st CMC joint reveals tenderness to palpation over the joint space. Mild swelling is noted without significant erythema. Pain is elicited with flexion and extension of the joint. Assessment/Treatment Plan: Rhona was seen today for back pain, neck pain and wrist pain. Diagnoses and all orders for this visit: Localized primary osteoarthritis of carpometacarpal (CMC) joint of left wrist - Case request operating room: INJECTION BURSA LARGE JOINT: left 1st cmc Lumbosacral spondylosis without myelopathy - HYDROcodone-acetaminophen (NORCO) 5-325 mg per tablet; Take 1 tablet by mouth 4 (four) times a day as needed for pain. Max Daily Amount: 4 tablets Left elbow pain - X-ray elbow left minimum 3 views; Future Encounter for long-term opiate analgesic use Refill [place] 5/325 mg QID PRN Left Elbow xray Imaging/Diagnostic Testing - It is felt that additional diagnostic testing is necessary to further evaluate the patients current pain pathology. For this reason, we will order additional imaging/diagnostic testing noted above. It is hopeful that this study will identify a significant pain generator that will be amenable to therapy. It is felt that this modality is necessary due to the severity and chronicity of symptoms and physical exam findings combined with the lack of recent imaging/diagnostic testing of the area. Left 1st CMC joint Injection - under fluoroscopy with the use of contrast dye (unless contraindicated) It is hopeful that the described procedure will provide symptomatic pain relief. It is felt to be medically necessary noting that the patient has tried and failed more conservative modalities of therapy and this is the next most appropriate step. The procedure was described in detail to the patient as well as the potential benefits of pain reduction alongside risks of the procedure and alternatives. Risks were described as including, but not limited to bleeding, infection, nerve damage, spinal cord injury, paralysis, stroke, dural puncture headache, and medication reaction. The patient expressed understanding regarding the risks and benefits and wishes to proceed. It was explained that CMC joint injections occasionally require a repeat injection before significant relief is noted, but we will determine after each injection if another one is indicated. Depending on the amount and duration of relief obtained from the injection, additional modalities of therapy including medications and physical therapy may need to be utilized alongside or following the injections. If the injection fails to provide relief for a reasonable duration, we may need to consider other options. Follow up 2 weeks after procedure The medications prescribed have been reviewed for medication interactions/contraindications and/or for upcoming procedures: continue current medication regimen without any changes. DISCUSSION: Treatment options discussed with patient and all questions answered to patient's satisfaction. Discussed the rules and regulations surrounding prescription of opioids and compliance at length. Failure to follow the rules and regulation will result in tapering and discontinuation of medications if applicable. The patient has been instructed as to the type of medication prescribed along with directions for use. Potential side effects have been discussed, along with risks and benefits of taking this medication. (S)he was instructed as to what to do if (s)he experiences side effects, including when to discontinue the medication. (S)he was advised to call this office in this event. Also discussed at length safety and security of RX and medications. Due to the high risk nature of this patient's pain medication regimen, frequent office visit refill appointments (every 1-3 months) are medically necessary to monitor for an addiction disorder. Prescribed medication that requires intensive monitoring for toxicity [place]. OARRS and most recent UDS were reviewed, discussed and appropriate for medications prescribed. [place] was refilled at today's office visit. It appears that the patient's previous pain is under adequate control with the previous procedure. At this point, we will continue to monitor these symptoms and turn our immediate attention to the more painful complaint that was discussed today. It does appear that is it the new primary pain complaint and the patient would likely benefit from a procedure as treatment for this complaint as well. The spine model was demonstrated and Xray and MRI was reviewed and used to explain the condition. Chronic conditions not treated during this visit that affected my overall medical decision making: Comorbidity- Diabetes The patient has a history of diabetes mellitus currently managed with medications. This will need to be considered prior to any procedure that would require the injection of steroid in that the patient may experience a transient increase in glucose as a result. Additional consideration will need to be given to timing the procedure early in the morning in that the patient will need to be fasting prior to the administration of anesthesia. Every effort will be made to perform the procedure as a 1st case due to this condition. And the patient will be instructed to hold their diabetic medications on that morning. If necessary, a blood glucose test can also be performed that morning. The risks/ benefits/ and alternatives will be weighed and explained to the patient prior to any procedure. OARRS: Reviewed. Scribe Statement: IRani CNA, scribed for and in the presence of AMEYA KINCAID who performed the above service. Rani Dominguez CNA 11/25/24 [id number] AMEYA Kincaid 11/25/24 [id number] documented in this encounter [facility] 11-25-2024 Instructions Rani Dominguez CNA - 11/25/2024 12:45 PM EDT Joint Injections / Other These procedure(s) involve injecting steroid medications into a joint or other area explained by your physician. Steroid medicine decreases pain and inflammation. The injection may also contain an anesthetic (numbing medicine) to decrease pain. It may be done to treat conditions such as arthritis, gout, carpal tunnel syndrome and more. The injections may be given in your hip, knee, ankle, shoulder, elbow, wrist, or ankle. How Long Will This Procedure Last? The extent and duration of pain relief may depend on the amount of inflammation and how many areas are involved. Other coexisting factors may be responsible for your pain. You and your physician will discuss expected results of procedure(s). After Your Injection You may experience soreness and tenderness at the area of treatment. This pain may not occur until later today after the numbing medicine wears off. The steroid can take 3-5 days to work and provide noticeable improvement. Activity You may resume normal activity as your comfort level allows. Medications Resume your routine medications after your procedure. You may resume blood thinners per your regular schedule after the procedure. If you received sedation: If you received sedation for your procedure, you may feel sleepy or not yourself for several hours today. For the next 24 hours avoid activities that requires alertness or coordination. This includes: Driving or operating heavy machinery Using power tools Consuming alcohol Do not make important or complex decisions or sign legal documents in the next 24 hours. Other Instructions: If you feel severe pain at the injection site with swelling and redness, increased leg weakness, a fever of 101 or higher, headache (or worsening headache), changes in vision or urinary retention: Please call the office at , or have someone take you to the nearest emergency room. Tell the emergency room staff that you recently had a spine injection. A doctor must evaluate you for bleeding and injection complications. If you lose control over bowel, bladder, or legs: Go to the nearest emergency room. If you are diabetic, the steroids used in this procedure can increase your blood sugar. If your blood sugar is 250mg/dL or higher, contact your primary care physician, or the doctor who manages your diabetes, to discuss how to get it back to normal. documented in this encounter [facility] 11-21-2024 History of Present illness Narrative [facility] Refill Assessment Medication(s): Enbrel Patient's current medication list and adherence status to current therapy were reviewed by Specialty Pharmacy clinical pharmacist to identify any new drug interactions or non-compliance to therapy. Therapy continues to be appropriate for disease, patient response, and medical condition. Verification of therapeutic benefit and effectiveness with current therapy was completed. Adverse events, barriers in adherence, and side effects were assessed and addressed if applicable. Will proceed with refill with no changes in therapy - patient progressing towards achieving therapeutic goals based on medication-specific laboratory parameters, disease state markers and outcomes. Office/provider notes have been reviewed prior to dispensing the medication. 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 Med/dose confirmed: Yes Supplies needed: No supplies needed Missed doses: No Estimated days supply on hand: 1 Next cycle/dose due: 11/25/24 Copay amount: 0 Payment confirmed: Yes Delivery method: FedEx Signature required: No Delivery address: [address] [place] [address] [address] [place] [address] Delivery date: 11/25/24 Questions or concerns for the pharmacist?: No Did you have any side effects believed to be related to this medication, that resulted in hospitalization?: No Current Outpatient Medications on File Prior to Visit Medication Sig amitriptyline (ELAVIL) 25 mg tablet Take 2 tablets by mouth daily at bedtime. predniSONE (DELTASONE) 5 mg tablet Day 1=6tabs with food, Day 2=5tabs, Day 3=4tabs, Day 4=3tabs, Day 5=2tabs, Day 6=1tab, No NSAIDs on med colchicine 0.6 mg tablet Take 1tab by mouth up to twice a day as tolerated. May cause diarrhea. cyclobenzaprine (FLEXERIL) 10 mg tablet Take 1-2tabs 3times a day gabapentin (NEURONTIN) 600 mg tablet Take 4caps by mouth per day Etanercept (ENBREL SURECLICK) 50 mg/mL (1 mL) Inject 50mg (1 pen) subcutaneously once a week. Hold if ill or on antibiotics. No LIVE vaccines. lisinopril (ZESTRIL) 40 mg tablet Take 1 tablet by mouth every afternoon. omeprazole (PRILOSEC) 20 mg capsule Take 1 capsule by mouth two times a day. acyclovir (ZOVIRAX) 400 mg tablet take 1 tablet by mouth twice a day glimepiride (AMARYL) 1 mg tablet therapeutic multivitamin (THERA VITAMIN) tablet Take 1 tablet by mouth every morning. Biotin 10,000 mcg cap Take by mouth twice daily. HYDROcodone-acetaminophen (NORCO) 5-325 mg per tablet Take 1 tablet by mouth every 8 hours as needed. No current facility-administered medications on file prior to visit. [facility] SPECIAL[facility] CLINICAL ASSESSMENT - INFLAMMATORY CONDITIONS V6: Assessment to use: Refill Date of influenza vaccination reminder: 07/14/2024 Date of most recent vaccination assessment: 07/14/2024 Treatment Plan Information: Enbrel Inject 50mg (1 pen) subcutaneously once a week. Hold if ill or on antibiotics. No LIVE vaccines. Est. Tx Plan Start Date: 07/15/2024 Estimated Start Date Info: No information available Est. Estimated Treatment Duration: Until lack of efficacy Paty Reed CPhT [facility] P: [phone] F: [phone] documented in this encounter [facility] 11-21-2024 Note HNO ID: [id number] Author: ?, ?, ? Service: ? Author Type: ? Type: Progress Notes Filed: 11/21/2024 14:45 Note Text: [facility] Refill Assessment Medication(s): Enbrel Patient's current medication list and adherence status to current therapy were reviewed by Specialty Pharmacy clinical pharmacist to identify any new drug interactions or non-compliance to therapy. Therapy continues to be appropriate for disease, patient response, and medical condition. Verification of therapeutic benefit and effectiveness with current therapy was completed. Adverse events, barriers in adherence, and side effects were assessed and addressed if applicable. Will proceed with refill with no changes in therapy - patient progressing towards achieving therapeutic goals based on medication-specific laboratory parameters, disease state markers and outcomes. Office/provider notes have been reviewed prior to dispensing the medication. 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 Med/dose confirmed: Yes Supplies needed: No supplies needed Missed doses: No Estimated days supply on hand: 1 Next cycle/dose due: 11/25/24 Copay amount: 0 Payment confirmed: Yes Delivery method: FedEx Signature required: No Delivery address: [address] [place] [address] Delivery date: 11/25/24 Questions or concerns for the pharmacist?: No Did you have any side effects believed to be related to this medication, that resulted in hospitalization?: No Current Outpatient Medications on File Prior to Visit Medication Sig amitriptyline (ELAVIL) 25 mg tablet Take 2 tablets by mouth daily at bedtime. predniSONE (DELTASONE) 5 mg tablet Day 1=6tabs with food, Day 2=5tabs, Day 3=4tabs, Day 4=3tabs, Day 5=2tabs, Day 6=1tab, No NSAIDs on med colchicine 0.6 mg tablet Take 1tab by mouth up to twice a day as tolerated. May cause diarrhea. cyclobenzaprine (FLEXERIL) 10 mg tablet Take 1-2tabs 3times a day gabapentin (NEURONTIN) 600 mg tablet Take 4caps by mouth per day Etanercept (ENBREL SURECLICK) 50 mg/mL (1 mL) Inject 50mg (1 pen) subcutaneously once a week. Hold if ill or on antibiotics. No LIVE vaccines. lisinopril (ZESTRIL) 40 mg tablet Take 1 tablet by mouth every afternoon. omeprazole (PRILOSEC) 20 mg capsule Take 1 capsule by mouth two times a day. acyclovir (ZOVIRAX) 400 mg tablet take 1 tablet by mouth twice a day glimepiride (AMARYL) 1 mg tablet therapeutic multivitamin (THERA VITAMIN) tablet Take 1 tablet by mouth every morning. Biotin 10,000 mcg cap Take by mouth twice daily. HYDROcodone-acetaminophen (NORCO) 5-325 mg per tablet Take 1 tablet by mouth every 8 hours as needed. No current facility-administered medications on file prior to visit. [facility] SPECIALTY CLINICAL ASSESSMENT - INFLAMMATORY CONDITIONS V6: Assessment to use: Refill Date of influenza vaccination reminder: 07/14/2024 Date of most recent vaccination assessment: 07/14/2024 Treatment Plan Information: Enbrel Inject 50mg (1 pen) subcutaneously once a week. Hold if ill or on antibiotics. No LIVE vaccines. Est. Tx Plan Start Date: 07/15/2024 Estimated Start Date Info: No information available Est. Estimated Treatment Duration: Until lack of efficacy Paty Reed CPhT [facility] P: [phone] F: [phone] [facility] 11-13-2024 Telephone encounter Note Notify patient medication sent as requested Thank you. Patient's request for medication is as follows: Requested Prescriptions Pending Prescriptions Disp Refills amitriptyline (ELAVIL) 25 mg tablet 180 tablet 0 Sig: Take 2 tablets by mouth daily at bedtime. Prescription(s) as above. Please process accordingly. Eugenio Ellis MD [facility] 11-13-2024 Miscellaneous Notes Notify patient medication sent as requested Thank you. Patient's request for medication is as follows: Requested Prescriptions Pending Prescriptions Disp Refills amitriptyline (ELAVIL) 25 mg tablet 180 tablet 0 Sig: Take 2 tablets by mouth daily at bedtime. Prescription(s) as above. Please process accordingly. Eugenio Ellis MD Pharmacy electronically requests the following refill(s) Requested Prescriptions Pending Prescriptions Disp Refills amitriptyline (ELAVIL) 25 mg tablet 180 tablet 0 Sig: Take 2 tablets by mouth daily at bedtime. Jodi Gonzalez MA Most recent Rheumatology visit: 03/29/2024 (with Eugenio Ellis) Last Bone Density on file: None on file Rheumatology Care Team: None on file Recent Office Visits - This Specialty 03/29/2024 Ankylosing spondylitis of multiple sites in spine ([facility]) Rheumatology Eugenio Ellis MD 01/17/2024 Ankylosing spondylitis of multiple sites in spine ([facility]) Rheumatology Eugenio Ellis MD 04/06/2023 Ankylosing spondylitis of multiple sites in spine ([facility]) Rheumatology Eugenio Ellis MD Upcoming Rheumatology Appointments - Next 365 Days Visit Type Date Time Department [facility] 12/01/2024 1:20 PM [facility] CBC: None on file in the last 6 months Vitamin D: None on file in the last 6 months LFT: None on file in the last 6 months Hepatic Function: Creatinine: None on file in the last 6 months ESR/CRP: None on file in the last 6 months Uric Acid: None on file in the last 6 months Open Standing (Multiple Instance) Lab Orders None Open Future (Single Instance) Lab Orders Expected Expires Ordered COMPREHENSIVE METABOLIC PANEL [SQCMP] 07/01/24 07/01/25 07/01/24 Auth. provider: Eugenio Ellis MD Assoc. diagnoses: Elevated LFTs COMPLETE BLOOD COUNT [SQCBC] 07/01/24 07/01/25 07/01/24 Auth. provider: Eugenio Ellis MD Assoc. diagnoses: Anemia of chronic disease SEDIMENTATION RATE, WESTERGREN [SQWSR] 07/01/24 07/01/25 07/01/24 Auth. provider: Eugenio Ellis MD Assoc. diagnoses: Elevated sed rate, Elevated C-reactive protein (CRP) C-REACTIVE PROTEIN [SQCRP] 07/01/24 07/01/25 07/01/24 Auth. provider: Eugenio lElis MD Assoc. diagnoses: Elevated sed rate, Elevated C-reactive protein (CRP) VITAMIN D 25 HYDROXY [SQVITD] 07/01/24 07/01/25 07/01/24 Auth. provider: Eugenio Ellis MD Assoc. diagnoses: Vitamin D deficiency HEP REMOTE PANEL BL [SQHREMOP] 07/01/24 07/01/25 07/01/24 Auth. provider: Eugenio Ellis MD Assoc. diagnoses: Elevated LFTs BLOOD TB SCREEN [SQINFTBP] 07/01/24 07/01/25 07/01/24 Auth. provider: Eugenio Ellis MD Assoc. diagnoses: Screening-pulmonary TB documented in this encounter [facility] 11-13-2024 Telephone encounter Note Pharmacy electronically requests the following refill(s) Requested Prescriptions Pending Prescriptions Disp Refills amitriptyline (ELAVIL) 25 mg tablet 180 tablet 0 Sig: Take 2 tablets by mouth daily at bedtime. Jodi Gonzalez MA Most recent Rheumatology visit: 03/29/2024 (with Eugenio Ellis) Last Bone Density on file: None on file Rheumatology Care Team: None on file Recent Office Visits - This Specialty 03/29/2024 Ankylosing spondylitis of multiple sites in spine ([facility]) Rheumatology Eugenio Ellis MD 01/17/2024 Ankylosing spondylitis of multiple sites in spine ([facility]) Rheumatology Eugenio Ellis MD 04/06/2023 Ankylosing spondylitis of multiple sites in spine ([facility]) Rheumatology Eugenio Ellis MD Upcoming Rheumatology Appointments - Next 365 Days Visit Type Date Time Department [facility] 12/01/2024 1:20 PM [facility] CBC: None on file in the last 6 months Vitamin D: None on file in the last 6 months LFT: None on file in the last 6 months Hepatic Function: Creatinine: None on file in the last 6 months ESR/CRP: None on file in the last 6 months Uric Acid: None on file in the last 6 months Open Standing (Multiple Instance) Lab Orders None Open Future (Single Instance) Lab Orders Expected Expires Ordered COMPREHENSIVE METABOLIC PANEL [SQCMP] 07/01/24 07/01/25 07/01/24 Auth. provider: Eugenio Ellis MD Assoc. diagnoses: Elevated LFTs COMPLETE BLOOD COUNT [SQCBC] 07/01/24 07/01/25 07/01/24 Auth. provider: Eugenio Ellis MD Assoc. diagnoses: Anemia of chronic disease SEDIMENTATION RATE, WESTERGREN [SQWSR] 07/01/24 07/01/25 07/01/24 Auth. provider: Eugenio Ellis MD Assoc. diagnoses: Elevated sed rate, Elevated C-reactive protein (CRP) C-REACTIVE PROTEIN [SQCRP] 07/01/24 07/01/25 07/01/24 Auth. provider: Eugenio Ellis MD Assoc. diagnoses: Elevated sed rate, Elevated C-reactive protein (CRP) VITAMIN D 25 HYDROXY [SQVITD] 07/01/24 07/01/25 07/01/24 Auth. provider: Eugenio Ellis MD Assoc. diagnoses: Vitamin D deficiency HEP REMOTE PANEL BL [SQHREMOP] 07/01/24 07/01/25 07/01/24 Auth. provider: Eugenio Ellis MD Assoc. diagnoses: Elevated LFTs BLOOD TB SCREEN [SQINFTBP] 07/01/24 07/01/25 07/01/24 Auth. provider: Eugenio Ellis MD Assoc. diagnoses: Screening-pulmonary TB [facility] 11-13-2024 Telephone encounter Note MC read by patient. [facility] 11-13-2024 Miscellaneous Notes MC read by patient. Please call patient. Thank you for the update. So sorry to hear about your discomfort. Glad no fractures. Sorry the insurance denied the increased enbrel dose. May take prednisone pack for pain flares if helpful. [facility] Hope you feel better soon and Best wishes on a speedy recovery! Warm regards, :) Patient's request for medication is as follows: Requested Prescriptions Signed Prescriptions Disp Refills predniSONE (DELTASONE) 5 mg tablet 21 tablet 3 Sig: Day 1=6tabs with food, Day 2=5tabs, Day 3=4tabs, Day 4=3tabs, Day 5=2tabs, Day 6=1tab, No NSAIDs on med Prescription(s) as above. Please process accordingly. Eugenio Ellis MD documented in this encounter [facility] 11-12-2024 Telephone encounter Note Please call patient. Thank you for the update. So sorry to hear about your discomfort. Glad no fractures. Sorry the insurance denied the increased enbrel dose. May take prednisone pack for pain flares if helpful. [facility] Hope you feel better soon and Best wishes on a speedy recovery! Warm regards, :) Patient's request for medication is as follows: Requested Prescriptions Signed Prescriptions Disp Refills predniSONE (DELTASONE) 5 mg tablet 21 tablet 3 Sig: Day 1=6tabs with food, Day 2=5tabs, Day 3=4tabs, Day 4=3tabs, Day 5=2tabs, Day 6=1tab, No NSAIDs on med Prescription(s) as above. Please process accordingly. Eugenio Ellis MD [facility] [place] 11-12-2024 Telephone encounter Note Notify patient medication sent as requested Thank you. Patient's request for medication is as follows: Requested Prescriptions Pending Prescriptions Disp Refills amitriptyline (ELAVIL) 25 mg tablet 180 tablet 0 Sig: Take 2 tablets by mouth daily at bedtime. Prescription(s) as above. Please process accordingly. Eugenio Ellis MD [facility] [place] 11-12-2024 Miscellaneous Notes Notify patient medication sent as requested Thank you. Patient's request for medication is as follows: Requested Prescriptions Pending Prescriptions Disp Refills amitriptyline (ELAVIL) 25 mg tablet 180 tablet 0 Sig: Take 2 tablets by mouth daily at bedtime. Prescription(s) as above. Please process accordingly. Eugenio Ellis MD Most recent Rheumatology visit: 03/29/2024 (with Eugenio Ellis) Last Bone Density on file: None on file Rheumatology Care Team: None on file Recent Office Visits - This Specialty 03/29/2024 Ankylosing spondylitis of multiple sites in spine (HCC) Rheumatology Eugenio Ellis MD 01/17/2024 Ankylosing spondylitis of multiple sites in spine (HCC) Rheumatology Eugenio Ellis MD 04/06/2023 Ankylosing spondylitis of multiple sites in spine (HCC) Rheumatology Eugenio Ellis MD Upcoming Rheumatology Appointments - Next 365 Days Visit Type Date Time Department [facility] 12/01/2024 1:20 PM [facility] [place] CBC: None on file in the last 6 months Vitamin D: None on file in the last 6 months LFT: None on file in the last 6 months Hepatic Function: Creatinine: None on file in the last 6 months ESR/CRP: None on file in the last 6 months Uric Acid: None on file in the last 6 months Open Standing (Multiple Instance) Lab Orders None Open Future (Single Instance) Lab Orders Expected Expires Ordered COMPREHENSIVE METABOLIC PANEL [SQCMP] 07/01/24 07/01/25 07/01/24 Auth. provider: Eugenio Ellis MD Assoc. diagnoses: Elevated LFTs COMPLETE BLOOD COUNT [SQCBC] 07/01/24 07/01/25 07/01/24 Auth. provider: Eugenio Ellis MD Assoc. diagnoses: Anemia of chronic disease SEDIMENTATION RATE, WESTERGREN [SQWSR] 07/01/24 07/01/25 07/01/24 Auth. provider: Eugenio Ellis MD Assoc. diagnoses: Elevated sed rate, Elevated C-reactive protein (CRP) C-REACTIVE PROTEIN [SQCRP] 07/01/24 07/01/25 07/01/24 Auth. provider: Eugenio Ellis MD Assoc. diagnoses: Elevated sed rate, Elevated C-reactive protein (CRP) VITAMIN D 25 HYDROXY [SQVITD] 07/01/24 07/01/25 07/01/24 Auth. provider: Eugenio Ellis MD Assoc. diagnoses: Vitamin D deficiency HEP REMOTE PANEL BL [SQHREMOP] 07/01/24 07/01/25 07/01/24 Auth. provider: Eugenio Ellis MD Assoc. diagnoses: Elevated LFTs BLOOD TB SCREEN [SQINFTBP] 07/01/24 07/01/25 07/01/24 Auth. provider: Eugenio Ellis MD Assoc. diagnoses: Screening-pulmonary TB documented in this encounter [facility] [place] 11-12-2024 Telephone encounter Note Most recent Rheumatology visit: 03/29/2024 (with Eugenio Ellis) Last Bone Density on file: None on file Rheumatology Care Team: None on file Recent Office Visits - This Specialty 03/29/2024 Ankylosing spondylitis of multiple sites in spine ([facility]) Rheumatology Eugenio Ellis MD 01/17/2024 Ankylosing spondylitis of multiple sites in spine ([facility]) Rheumatology Eugenio Ellis MD 04/06/2023 Ankylosing spondylitis of multiple sites in spine ([facility]) Rheumatology Eugenio Ellis MD Upcoming Rheumatology Appointments - Next 365 Days Visit Type Date Time Department [facility] 12/01/2024 1:20 PM [facility] [place] CBC: None on file in the last 6 months Vitamin D: None on file in the last 6 months LFT: None on file in the last 6 months Hepatic Function: Creatinine: None on file in the last 6 months ESR/CRP: None on file in the last 6 months Uric Acid: None on file in the last 6 months Open Standing (Multiple Instance) Lab Orders None Open Future (Single Instance) Lab Orders Expected Expires Ordered COMPREHENSIVE METABOLIC PANEL [SQCMP] 07/01/24 07/01/25 07/01/24 Auth. provider: Eugenio Ellis MD Assoc. diagnoses: Elevated LFTs COMPLETE BLOOD COUNT [SQCBC] 07/01/24 07/01/25 07/01/24 Auth. provider: Eugenio Ellis MD Assoc. diagnoses: Anemia of chronic disease SEDIMENTATION RATE, WESTERGREN [SQWSR] 07/01/24 07/01/25 07/01/24 Auth. provider: Eugenio Ellis MD Assoc. diagnoses: Elevated sed rate, Elevated C-reactive protein (CRP) C-REACTIVE PROTEIN [SQCRP] 07/01/24 07/01/25 07/01/24 Auth. provider: Eugenio Ellis MD Assoc. diagnoses: Elevated sed rate, Elevated C-reactive protein (CRP) VITAMIN D 25 HYDROXY [SQVITD] 07/01/24 07/01/25 07/01/24 Auth. provider: Eugenio Ellis MD Assoc. diagnoses: Vitamin D deficiency HEP REMOTE PANEL BL [SQHREMOP] 07/01/24 07/01/25 07/01/24 Auth. provider: Eugenio Ellis MD Assoc. diagnoses: Elevated LFTs BLOOD TB SCREEN [SQINFTBP] 07/01/24 07/01/25 07/01/24 Auth. provider: Eugenio Ellis MD Assoc. diagnoses: Screening-pulmonary TB [facility] [place] 11-05-2024 History of Present illness Narrative OARRS reviewed. documented in this encounter [facility] 11-04-2024 Miscellaneous Notes Last OV: proc 10/31/24 Next OV: 11/25/24 OARRS appropriate: yes Last UDS: 10/23/24 Pharmacy: [facility] Patient left another message requesting [place] refill. Prescription was e-scribed yesterday with a fill date of 11/06/2024. Call placed to patient to inform her of this. Call was also to remind patient to request refill 7-10 days prior to expected refill date to avoid running out of medication. No answer. Message left with the above information. documented in this encounter [facility] 11-04-2024 Telephone encounter Note Last OV: proc 10/31/24 Next OV: 11/25/24 OARRS appropriate: yes Last UDS: 10/23/24 Pharmacy: [facility] 11-04-2024 Telephone encounter Note Patient left another message requesting [place] refill. Prescription was e-scribed yesterday with a fill date of 11/06/2024. Call placed to patient to inform her of this. Call was also to remind patient to request refill 7-10 days prior to expected refill date to avoid running out of medication. No answer. Message left with the above information. [facility] 10-29-2024 History of Present illness Narrative Images from the original note were not included. CHIEF COMPLAINT REASON FOR VISIT: Follow up for fatigue HPI: Rhona Garcia is a 64 y.o. female who presents for a follow up. Patient states she had a fall getting out of the tub and she her her left arm and shoulder. She states she is having a hard time driving and she is having a lot pf pain. She states that she did not hit her head. She states that she is still taking the modafinil and it is helping her do more throughout the day. She states she takes one tablet at Noon and that gets her through the day. She states she has energy in the mornings. She states she is sleeping okay. She states she is having numbness and tingling in the hands. Denies any in the legs or feet.She states she is having more weakness in her hands. She states she has lost a lot of her appetite. She states nothing tastes good to her anymore. Denies any other concerns. Answers submitted by the patient for this visit: Neurological Problem Questionnaire (Submitted on 10/28/2024) Chief Complaint: Neurologic complaint clumsiness: Yes altered mental status: Yes syncope: Yes loss of balance: Yes focal sensory loss: Yes memory loss: Yes near-syncope: Yes visual change: Yes weakness: Yes focal weakness: Yes Chronicity: chronic Onset: more than 1 year ago Onset quality: gradually Progression since onset: waxing and waning Focality: left-sided, right-sided, lower extremity, upper extremity abdominal pain: No confusion: Yes dizziness: Yes fatigue: Yes fever: No headaches: No light-headedness: Yes neck pain: Yes Treatments tried: acetaminophen, medication, neck support, position change Improvement on treatment: mild CURRENT MEDICATIONS: ALLERGIES/DISCONTINUE MEDICATIONS Current Outpatient Medications Medication Instructions acyclovir (ZOVIRAX) 400 mg, 2 times daily amitriptyline (ELAVIL) 25 mg, Oral, Nightly biotin 10 MG capsule 1 capsule, Oral, 2 times daily Blood Glucose Monitoring Suppl (Accu-Chek Guide) w/Device kit USE DIRECTED cholecalciferol (VITAMIN D-3) 400 Units, Oral, Daily colchicine 0.6 mg, 2 times daily Cosentyx Sensoready Pen 300 mg, Every 7 days cyclobenzaprine (FLEXERIL) 10 mg, Oral, 3 times daily gabapentin (Neurontin) 300 MG capsule 2 capsules, Oral, 3 times daily glimepiride (AMARYL) 1 mg, Oral, Daily before breakfast HYDROcodone-acetaminophen ([place]) 5-325 MG tablet 1 tablet, Oral, 4 times daily PRN lisinopril 40 mg, Oral, Daily modafinil (PROVIGIL) 50 mg, Oral, 2 times daily (01/13) Multiple Vitamins-Minerals (Oncovite) tablet 1 tablet, Oral, Every morning omeprazole (PRILOSEC) 20 mg, Oral, 2 times daily before meals Allergies Allergen Reactions Cinnamon Swelling Throat swells Coconut Fatty Acid Swelling Other Reaction(s): GI Upset Throat swells Sulfa Antibiotics Anaphylaxis and Rash ivp dye ok per pt noted for pain clinic Coconut (Cocos Nucifera) Other Reaction(s): GI Upset Dust Mite Extract Other reaction(s): Other: See Comments itching eyes, scratchy throat Other Reaction(s): Other: See Comments itching eyes, scratchy throat Leflunomide Other Reaction(s): Intolerance headaches, dizziness, blurred vision, hairloss, joint pain Oxycodone-Acetaminophen Other Reaction(s): nightmares Other reaction(s): nightmares Shellfish-Derived Products Other Reaction(s): Unknown Sulfasalazine Other Reaction(s): Unknown Other GI intolerance hives Propoxyphene Other Reaction(s): Other (See Comments), Other: See Comments Nightmares Heart palpitations Other Reaction(s): Other: See Comments Tilactase Other Reaction(s): GI Disturbance, GI Upset Tizanidine Other Reaction(s): Abdominal Pain There are no discontinued medications. PAST MEDICAL HISTORY: SURGICAL/SOCIAL/FAMILY HISTORY DEPRESSION SCREEN: Past Medical History: Diagnosis Date A-fib ([facility]) Alteration of awareness Anemia Ankylosing spondylitis ([facility]) Arthritis Brachial neuritis Cervicalgia Childhood asthma ([facility]) no further symptoms CTS (carpal tunnel syndrome) 1984 DDD (degenerative disc disease), cervical Depression ([facility]) Diabetes mellitus ([facility]) 2021 Difficulty walking 2013 Fibromyalgia Headache History of being hospitalized 2001 cardiac reasons History of medical problems Is on a high sodium diet Hypertension ([facility]) Insomnia 2015 Joint pain Lack of coordination Lumbago Malaise and fatigue Memory loss I forgot. 2015 Migraine ([facility]) 1984 Movement disorder 2015 Numbness 1984 OA (osteoarthritis) JEOVANNY (obstructive sleep apnea) Osteoporosis ([facility]) Raynaud's disease Restless leg syndrome 2015 Scleroderma ([facility]) Spinal stenosis Stroke (cerebrum) ([facility]) Syncope 1965 TIA (transient ischemic attack) Vision loss 1965 Weakness of limb 2014 Past Surgical History: Procedure Laterality Date CARPAL TUNNEL RELEASE OTHER SURGICAL HISTORY 05/08/2017 [facility] vicet injection PAIN MANAGEMENT 02/2022 [place] HAND/FINGER SURGERY UNLISTED 2008 (R) Thumb [facility] - Bone Shaving - Dr Teixeira TOTAL HIP ARTHROPLASTY 2012 [facility] - Dr Tyson @ [facility] TOTAL HIP ARTHROPLASTY 2013 [place] - Dr Tyson @ [facility] TUBAL LIGATION 1999 UTERINE FIBROID SURGERY Social History Tobacco Use Smoking status: Never Smokeless tobacco: Never Substance Use Topics Alcohol use: Not Currently Comment: No alchohol since 2009 Drug use: Never Family History Problem Relation Name Age of Onset Lung cancer Mother Stroke Father Depression: At risk (09/11/2024) Received from [employer] [facility] PHQ-2 Total Score: 3 REVIEW OF SYMPTOMS: Review of Systems Constitutional: Positive for fatigue. Negative for chills, diaphoresis and fever. HENT: Negative for ear pain, tinnitus and trouble swallowing. Eyes: Negative for photophobia and visual disturbance. Respiratory: Negative for cough and shortness of breath. Cardiovascular: Negative for palpitations and leg swelling. Gastrointestinal: Negative for abdominal pain and nausea. Genitourinary: Negative for difficulty urinating and urgency. Musculoskeletal: Positive for neck pain. Negative for arthralgias, back pain, myalgias and neck stiffness. Neurological: Positive for dizziness, syncope, weakness and light-headedness. Negative for tremors, numbness and headaches. Psychiatric/Behavioral: Positive for confusion. Negative for agitation and suicidal ideas. OBJECTIVE: 06/18/2023 12:57 PM 03/19/2023 9:03 AM 09/11/2022 12:00 PM Vitals BMI 26.29 kg/m2 25.84 kg/m2 25.55 kg/m2 BSA (m2) 1.98 m2 1.97 m2 1.95 m2 Systolic 118 138 138 Diastolic 72 88 82 Heart Rate 106 97 SpO2 95 % 95 % Temp 97.9 F 98.4 F Height (in) 5' 9 5' 9 Weight (lb) 178 175 173 Visit Report Report Report EXAM: Neurological Exam Mental Status Awake, alert and oriented to person, place and time. Oriented to person, place and time. Recent and remote memory are intact. Speech is normal. Language is fluent with no aphasia. Attention and concentration are normal. Cranial Nerves CN II: Visual acuity is normal. Visual de luna full to confrontation. CN III, IV, : Extraocular movements intact bilaterally. Normal lids and orbits bilaterally. Pupils equal round and reactive to light bilaterally. CN V: Facial sensation is normal. CN VII: Full and symmetric facial movement. CN VIII: Hearing is normal. CN XII: Tongue midline without atrophy or fasciculations. Motor Normal muscle bulk throughout. Normal muscle tone. Right Left Wrist flexion 5 5 Wrist extension 5 5 Right Left Deltoid 5 5 Biceps 5 5 Triceps 5 5 Wrist flexor 5 5 Wrist extensor 5 5 Glutei 5 5 Iliopsoas 5 5 Quadriceps 5 5 Gastrocnemius 5 5 Anterior tibialis 5 5 Posterior tibialis 5 5 Sensory Light touch is normal in upper and lower extremities. Pinprick is normal in upper and lower extremities. Vibration is normal in upper and lower extremities. Reflexes Right Left Brachioradialis 2+ 2+ Biceps 2+ 2+ Patellar 2+ 2+ Achilles 2+ 2+ Right Plantar: downgoing Left Plantar: downgoing Right pathological reflexes: Sneha's absent. Ankle clonus absent. Left pathological reflexes: Sneha's absent. Ankle clonus absent. Coordination [id number], rapid alternating movements and [id number] normal bilaterally without dysmetria. Gait Normal casual, toe, heel and tandem gait. Romberg is absent. 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 Acyclovir has really helped her symptoms. I will increase modafinil to 200 mg once a day to help with chronic fatigue and idiopathic hypersomnia. This was discussed with patient and all questions answered. Diagnoses and all orders for this visit: Osteoarthritis of left elbow, unspecified osteoarthritis type XR forearm 2 views left; Future XR elbow 1 or 2 views left; Future Idiopathic hypersomnia with long sleep time Chronic fatigue syndrome Increase Modafinil 200 mg -1 tablet by mouth at noon. I counseled the patient on the possible side effects and interactions of medications. Follow up 3 months. This note was scribed by JEREMIAH Parks acting under the direction of Shanna Johnson MD. The content has been reviewed and confirmed for accuracy by Shanna Johnson MD documented in this encounter [facility] 10-22-2024 Note HNO ID: [id number] Author: ?, ?, ? Service: ? Author Type: ? Type: Progress Notes Filed: 10/22/2024 14:19 Note Text: [facility] Special[facility] Refill Assessment Medication(s): Enbrel Patient's current medication list and adherence status to current therapy were reviewed by Specialty Pharmacy clinical pharmacist to identify any new drug interactions or non-compliance to therapy. Therapy continues to be appropriate for disease, patient response, and medical condition. Verification of therapeutic benefit and effectiveness with current therapy was completed. Adverse events, barriers in adherence, and side effects were assessed and addressed if applicable. Will proceed with refill with no changes in therapy - patient progressing towards achieving therapeutic goals based on medication-specific laboratory parameters, disease state markers and outcomes. Office/provider notes have been reviewed prior to dispensing the medication. 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 Med/dose confirmed: Yes Supplies needed: No supplies needed Missed doses: No Estimated days supply on hand: 1 Next cycle/dose due: 10/28/24 Copay amount: 0 Payment confirmed: Yes Delivery method: FedEx Signature required: Waived on patient request Delivery address: [address] [place] [address] [address] [place] [id number] Delivery date: 10/30/24 Questions or concerns for the pharmacist?: No Did you have any side effects believed to be related to this medication, that resulted in hospitalization?: No Current Outpatient Medications on File Prior to Visit Medication Sig colchicine 0.6 mg tablet Take 1tab by mouth up to twice a day as tolerated. May cause diarrhea. amitriptyline (ELAVIL) 25 mg tablet Take 2 tablets by mouth daily at bedtime. cyclobenzaprine (FLEXERIL) 10 mg tablet Take 1-2tabs 3times a day gabapentin (NEURONTIN) 600 mg tablet Take 4caps by mouth per day predniSONE (DELTASONE) 5 mg tablet TAKE 6 TABLETS BY MOUTH ONCE DAILY FOR 1 DAY; then TAKE 5 TABLETS BY MOUTH ONCE DAILY FOR 1 DAY; then TAKE 4 TABLETS BY MOUTH ONCE DAILY FOR 1 DAY; then TAKE 3 TABLETS BY MOUTH ONCE DAILY FOR 1 DAY; then TAKE 2 TABLETS BY MOUTH ONCE DAILY FOR 1 DAY; then TAKE 1 TABLET BY MOUTH ONCE DAILY FOR 1 DAY; take all doses WITH food and avoid NSAIDS Etanercept (ENBREL SURECLICK) 50 mg/mL (1 mL) Inject 50mg (1 pen) subcutaneously once a week. Hold if ill or on antibiotics. No LIVE vaccines. lisinopril (ZESTRIL) 40 mg tablet Take 1 tablet by mouth every afternoon. omeprazole (PRILOSEC) 20 mg capsule Take 1 capsule by mouth two times a day. acyclovir (ZOVIRAX) 400 mg tablet take 1 tablet by mouth twice a day glimepiride (AMARYL) 1 mg tablet therapeutic multivitamin (THERA VITAMIN) tablet Take 1 tablet by mouth every morning. Biotin 10,000 mcg cap Take by mouth twice daily. HYDROcodone-acetaminophen ([place]) 5-325 mg per tablet Take 1 tablet by mouth every 8 hours as needed. No current facility-administered medications on file prior to visit. [facility] CLINICAL ASSESSMENT - INFLAMMATORY CONDITIONS V6: Assessment to use: Refill Date of influenza vaccination reminder: 07/14/2024 Date of most recent vaccination assessment: 07/14/2024 Treatment Plan Information: Enbrel Inject 50mg (1 pen) subcutaneously once a week. Hold if ill or on antibiotics. No LIVE vaccines. Est. Tx Plan Start Date: 07/15/2024 Estimated Start Date Info: No information available Est. Estimated Treatment Duration: Until lack of efficacy Blessing Meléndez CPhT, Inflammatory/Allergy [facility] [place] [facility] [phone] [facility] 10-13-2024 Telephone encounter Note Notify patient medication sent as requested Thank you. Patient's request for medication is as follows: Requested Prescriptions Pending Prescriptions Disp Refills colchicine 0.6 mg tablet 60 tablet 11 Sig: Take 1tab by mouth up to twice a day as tolerated. May cause diarrhea. Prescription(s) as above. Please process accordingly. Eugenio Ellis MD [facility] [place] 10-13-2024 Miscellaneous Notes Notify patient medication sent as requested Thank you. Patient's request for medication is as follows: Requested Prescriptions Pending Prescriptions Disp Refills colchicine 0.6 mg tablet 60 tablet 11 Sig: Take 1tab by mouth up to twice a day as tolerated. May cause diarrhea. Prescription(s) as above. Please process accordingly. Eugenio Ellis MD Most recent Rheumatology visit: 03/29/2024 (with Eugenio Ellis) Last Bone Density on file: None on file Rheumatology Care Team: None on file Recent Office Visits - This Specialty 03/29/2024 Ankylosing spondylitis of multiple sites in spine ([facility]) Rheumatology Eugenio Ellis MD 01/17/2024 Ankylosing spondylitis of multiple sites in spine ([facility]) Rheumatology Eugenio Ellis MD 04/06/2023 Ankylosing spondylitis of multiple sites in spine ([facility]) Rheumatology Eugenio Ellis MD Upcoming Rheumatology Appointments - Next 365 Days Visit Type Date Time Department [facility] 12/01/2024 1:20 PM [facility] CBC: None on file in the last 6 months Vitamin D: None on file in the last 6 months LFT: None on file in the last 6 months Hepatic Function: Creatinine: None on file in the last 6 months ESR/CRP: None on file in the last 6 months Uric Acid: None on file in the last 6 months Open Standing (Multiple Instance) Lab Orders None Open Future (Single Instance) Lab Orders Expected Expires Ordered COMPREHENSIVE METABOLIC PANEL [SQCMP] 07/01/24 07/01/25 07/01/24 Auth. provider: Eugenio Ellis MD Assoc. diagnoses: Elevated LFTs COMPLETE BLOOD COUNT [SQCBC] 07/01/24 07/01/25 07/01/24 Auth. provider: Eugenio Ellis MD Assoc. diagnoses: Anemia of chronic disease SEDIMENTATION RATE, WESTERGREN [SQWSR] 07/01/24 07/01/25 07/01/24 Auth. provider: Eugenio Ellis MD Assoc. diagnoses: Elevated sed rate, Elevated C-reactive protein (CRP) C-REACTIVE PROTEIN [SQCRP] 07/01/24 07/01/25 07/01/24 Auth. provider: Eugenio Ellis MD Assoc. diagnoses: Elevated sed rate, Elevated C-reactive protein (CRP) VITAMIN D 25 HYDROXY [SQVITD] 07/01/24 07/01/25 07/01/24 Auth. provider: Eugenio Ellis MD Assoc. diagnoses: Vitamin D deficiency HEP REMOTE PANEL BL [SQHREMOP] 07/01/24 07/01/25 07/01/24 Auth. provider: Eugenio Ellis MD Assoc. diagnoses: Elevated LFTs BLOOD TB SCREEN [SQINFTBP] 07/01/24 07/01/25 07/01/24 Auth. provider: Eugenio Ellis MD Assoc. diagnoses: Screening-pulmonary TB documented in this encounter [facility] [place] 10-13-2024 Telephone encounter Note Most recent Rheumatology visit: 03/29/2024 (with Eugenio Ellis) Last Bone Density on file: None on file Rheumatology Care Team: None on file Recent Office Visits - This Specialty 03/29/2024 Ankylosing spondylitis of multiple sites in spine (HCC) Rheumatology Eugenio Ellis MD 01/17/2024 Ankylosing spondylitis of multiple sites in spine (HCC) Rheumatology Eugenio Ellis MD 04/06/2023 Ankylosing spondylitis of multiple sites in spine (HCC) Rheumatology Eugenio Ellis MD Upcoming Rheumatology Appointments - Next 365 Days Visit Type Date Time Department [facility] 12/01/2024 1:20 PM [facility] CBC: None on file in the last 6 months Vitamin D: None on file in the last 6 months LFT: None on file in the last 6 months Hepatic Function: Creatinine: None on file in the last 6 months ESR/CRP: None on file in the last 6 months Uric Acid: None on file in the last 6 months Open Standing (Multiple Instance) Lab Orders None Open Future (Single Instance) Lab Orders Expected Expires Ordered COMPREHENSIVE METABOLIC PANEL [SQCMP] 07/01/24 07/01/25 07/01/24 Auth. provider: Eugenio Ellis MD Assoc. diagnoses: Elevated LFTs COMPLETE BLOOD COUNT [SQCBC] 07/01/24 07/01/25 07/01/24 Auth. provider: Eugenio Ellis MD Assoc. diagnoses: Anemia of chronic disease SEDIMENTATION RATE, WESTERGREN [SQWSR] 07/01/24 07/01/25 07/01/24 Auth. provider: Eugenio Ellis MD Assoc. diagnoses: Elevated sed rate, Elevated C-reactive protein (CRP) C-REACTIVE PROTEIN [SQCRP] 07/01/24 07/01/25 07/01/24 Auth. provider: Eugenio Ellis MD Assoc. diagnoses: Elevated sed rate, Elevated C-reactive protein (CRP) VITAMIN D 25 HYDROXY [SQVITD] 07/01/24 07/01/25 07/01/24 Auth. provider: Eugenio Ellis MD Assoc. diagnoses: Vitamin D deficiency HEP REMOTE PANEL BL [SQHREMOP] 07/01/24 07/01/25 07/01/24 Auth. provider: Eugenio Ellis MD Assoc. diagnoses: Elevated LFTs BLOOD TB SCREEN [SQINFTBP] 07/01/24 07/01/25 07/01/24 Auth. provider: Eugenio Ellis MD Assoc. diagnoses: Screening-pulmonary TB [facility] 10-02-2024 Miscellaneous Notes Last OV: 09/23/24 Next OV: 10/23/24 OARRS appropriate: yes Last UDS: 03/20/24 Pharmacy: [facility] documented in this encounter [facility] 10-02-2024 Telephone encounter Note Last OV: 09/23/24 Next OV: 10/23/24 OARRS appropriate: yes Last UDS: 03/20/24 Pharmacy: [facility] 09-26-2024 Note HNO ID: [id number] Author: ?, ?, ? Service: ? Author Type: ? Type: Progress Notes Filed: 09/26/2024 13:55 Note Text: [facility] Specialty Refill Assessment Medication(s): Enbrel Patient's current medication list and adherence status to current therapy were reviewed by Specialty Pharmacy clinical pharmacist to identify any new drug interactions or non-compliance to therapy. Therapy continues to be appropriate for disease, patient response, and medical condition. Verification of therapeutic benefit and effectiveness with current therapy was completed. Adverse events, barriers in adherence, and side effects were assessed and addressed if applicable. Will proceed with refill with no changes in therapy - patient progressing towards achieving therapeutic goals based on medication-specific laboratory parameters, disease state markers and outcomes. Office/provider notes have been reviewed prior to dispensing the medication. 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 Med/dose confirmed: Yes Supplies needed: No supplies needed Missed doses: No Estimated days supply on hand: 1 Next cycle/dose due: 09/30/24 Copay amount: 0 Payment confirmed: Yes Delivery method: FedEx Signature required: No Delivery address: [address] [place] [address] [address], [facility] [address] Delivery date: 09/30/24 Questions or concerns for the pharmacist?: No Did you have any side effects believed to be related to this medication, that resulted in hospitalization?: No Current Outpatient Medications on File Prior to Visit Medication Sig amitriptyline (ELAVIL) 25 mg tablet Take 2 tablets by mouth daily at bedtime. colchicine 0.6 mg tablet Take 1tab by mouth up to twice a day as tolerated. May cause diarrhea. cyclobenzaprine (FLEXERIL) 10 mg tablet Take 1-2tabs 3times a day gabapentin (NEURONTIN) 600 mg tablet Take 4caps by mouth per day predniSONE (DELTASONE) 5 mg tablet TAKE 6 TABLETS BY MOUTH ONCE DAILY FOR 1 DAY; then TAKE 5 TABLETS BY MOUTH ONCE DAILY FOR 1 DAY; then TAKE 4 TABLETS BY MOUTH ONCE DAILY FOR 1 DAY; then TAKE 3 TABLETS BY MOUTH ONCE DAILY FOR 1 DAY; then TAKE 2 TABLETS BY MOUTH ONCE DAILY FOR 1 DAY; then TAKE 1 TABLET BY MOUTH ONCE DAILY FOR 1 DAY; take all doses WITH food and avoid NSAIDS Etanercept (ENBREL SURECLICK) 50 mg/mL (1 mL) Inject 50mg (1 pen) subcutaneously once a week. Hold if ill or on antibiotics. No LIVE vaccines. lisinopril (ZESTRIL) 40 mg tablet Take 1 tablet by mouth every afternoon. omeprazole (PRILOSEC) 20 mg capsule Take 1 capsule by mouth two times a day. acyclovir (ZOVIRAX) 400 mg tablet take 1 tablet by mouth twice a day glimepiride (AMARYL) 1 mg tablet therapeutic multivitamin (THERA VITAMIN) tablet Take 1 tablet by mouth every morning. Biotin 10,000 mcg cap Take by mouth twice daily. HYDROcodone-acetaminophen (NORCO) 5-325 mg per tablet Take 1 tablet by mouth every 8 hours as needed. No current facility-administered medications on file prior to visit. [facility] CLINICAL ASSESSMENT - INFLAMMATORY CONDITIONS V6: Assessment to use: Refill Date of influenza vaccination reminder: 07/14/2024 Date of most recent vaccination assessment: 07/14/2024 Treatment Plan Information: Enbrel Inject 50mg (1 pen) subcutaneously once a week. Hold if ill or on antibiotics. No LIVE vaccines. Est. Tx Plan Start Date: 07/15/2024 Estimated Start Date Info: No information available Est. Estimated Treatment Duration: Until lack of efficacy Cindy Mendoza [facility] 09-24-2024 Telephone encounter Note Notify patient medication sent as requested Thank you. Patient's request for medication is as follows: Requested Prescriptions Pending Prescriptions Disp Refills amitriptyline (ELAVIL) 25 mg tablet 180 tablet 0 Sig: Take 2 tablets by mouth daily at bedtime. colchicine 0.6 mg tablet 60 tablet 0 Sig: Take 1tab by mouth up to twice a day as tolerated. May cause diarrhea. cyclobenzaprine (FLEXERIL) 10 mg tablet 450 tablet 0 Sig: Take 1-2tabs 3times a day gabapentin (NEURONTIN) 600 mg tablet 360 tablet 0 Sig: Take 4caps by mouth per day Prescription(s) as above. Please process accordingly. Eugenio Ellis MD [facility] 09-24-2024 Miscellaneous Notes Notify patient medication sent as requested Thank you. Patient's request for medication is as follows: Requested Prescriptions Pending Prescriptions Disp Refills amitriptyline (ELAVIL) 25 mg tablet 180 tablet 0 Sig: Take 2 tablets by mouth daily at bedtime. colchicine 0.6 mg tablet 60 tablet 0 Sig: Take 1tab by mouth up to twice a day as tolerated. May cause diarrhea. cyclobenzaprine (FLEXERIL) 10 mg tablet 450 tablet 0 Sig: Take 1-2tabs 3times a day gabapentin (NEURONTIN) 600 mg tablet 360 tablet 0 Sig: Take 4caps by mouth per day Prescription(s) as above. Please process accordingly. Eugenio Ellis MD Most recent Rheumatology visit: 03/29/2024 (with Eugenio Ellis) Last Bone Density on file: None on file Rheumatology Care Team: None on file Recent Office Visits - This Specialty 03/29/2024 Ankylosing spondylitis of multiple sites in spine ([facility]) Rheumatology Eugenio Ellis MD 01/17/2024 Ankylosing spondylitis of multiple sites in spine ([facility]) Rheumatology Eugenio Ellis MD 04/06/2023 Ankylosing spondylitis of multiple sites in spine ([facility]) Rheumatology Eugenio Ellis MD Upcoming Rheumatology Appointments - Next 365 Days Visit Type Date Time Department [facility] 12/01/2024 1:20 PM [facility] [place] CBC: None on file in the last 6 months Vitamin D: None on file in the last 6 months LFT: None on file in the last 6 months Hepatic Function: Creatinine: None on file in the last 6 months ESR/CRP: None on file in the last 6 months Uric Acid: None on file in the last 6 months Open Standing (Multiple Instance) Lab Orders None Open Future (Single Instance) Lab Orders Expected Expires Ordered COMPREHENSIVE METABOLIC PANEL [SQCMP] 07/01/24 07/01/25 07/01/24 Auth. provider: Eugenio Ellis MD Assoc. diagnoses: Elevated LFTs COMPLETE BLOOD COUNT [SQCBC] 07/01/24 07/01/25 07/01/24 Auth. provider: Eugenio Ellis MD Assoc. diagnoses: Anemia of chronic disease SEDIMENTATION RATE, WESTERGREN [SQWSR] 07/01/24 07/01/25 07/01/24 Auth. provider: Eugenio Ellis MD Assoc. diagnoses: Elevated sed rate, Elevated C-reactive protein (CRP) C-REACTIVE PROTEIN [SQCRP] 07/01/24 07/01/25 07/01/24 Auth. provider: Eugenio Ellis MD Assoc. diagnoses: Elevated sed rate, Elevated C-reactive protein (CRP) VITAMIN D 25 HYDROXY [SQVITD] 07/01/24 07/01/25 07/01/24 Auth. provider: Eugenio Ellis MD Assoc. diagnoses: Vitamin D deficiency HEP REMOTE PANEL BL [SQHREMOP] 07/01/24 07/01/25 07/01/24 Auth. provider: Eugenio Ellis MD Assoc. diagnoses: Elevated LFTs BLOOD TB SCREEN [SQINFTBP] 07/01/24 07/01/25 07/01/24 Auth. provider: Eugenio Ellis MD Assoc. diagnoses: Screening-pulmonary TB documented in this encounter [facility] 09-24-2024 Telephone encounter Note Most recent Rheumatology visit: 03/29/2024 (with Eugenio Ellis) Last Bone Density on file: None on file Rheumatology Care Team: None on file Recent Office Visits - This Specialty 03/29/2024 Ankylosing spondylitis of multiple sites in spine ([facility]) Rheumatology Eugenio Ellis MD 01/17/2024 Ankylosing spondylitis of multiple sites in spine ([facility]) Rheumatology Eugenio Ellis MD 04/06/2023 Ankylosing spondylitis of multiple sites in spine ([facility]) Rheumatology Eugenio Ellis MD Upcoming Rheumatology Appointments - Next 365 Days Visit Type Date Time Department [facility] 12/01/2024 1:20 PM [facility] [place] CBC: None on file in the last 6 months Vitamin D: None on file in the last 6 months LFT: None on file in the last 6 months Hepatic Function: Creatinine: None on file in the last 6 months ESR/CRP: None on file in the last 6 months Uric Acid: None on file in the last 6 months Open Standing (Multiple Instance) Lab Orders None Open Future (Single Instance) Lab Orders Expected Expires Ordered COMPREHENSIVE METABOLIC PANEL [SQCMP] 07/01/24 07/01/25 07/01/24 Auth. provider: Eugenio Ellis MD Assoc. diagnoses: Elevated LFTs COMPLETE BLOOD COUNT [SQCBC] 07/01/24 07/01/25 07/01/24 Auth. provider: Eugenio Ellis MD Assoc. diagnoses: Anemia of chronic disease SEDIMENTATION RATE, WESTERGREN [SQWSR] 07/01/24 07/01/25 07/01/24 Auth. provider: Eugenio Ellis MD Assoc. diagnoses: Elevated sed rate, Elevated C-reactive protein (CRP) C-REACTIVE PROTEIN [SQCRP] 07/01/24 07/01/25 07/01/24 Auth. provider: Eugenio Ellis MD Assoc. diagnoses: Elevated sed rate, Elevated C-reactive protein (CRP) VITAMIN D 25 HYDROXY [SQVITD] 07/01/24 07/01/25 07/01/24 Auth. provider: Eugenio Ellis MD Assoc. diagnoses: Vitamin D deficiency HEP REMOTE PANEL BL [SQHREMOP] 07/01/24 07/01/25 07/01/24 Auth. provider: Eugenio Ellis MD Assoc. diagnoses: Elevated LFTs BLOOD TB SCREEN [SQINFTBP] 07/01/24 07/01/25 07/01/24 Auth. provider: Eugenio lElis MD Assoc. diagnoses: Screening-pulmonary TB [facility] 09-23-2024 History of Present illness Narrative [facility] [address] [place] [address] Patient: Rhona Garcia Sex: female : 1960 Age: 64 y.o. PCP: Parish Dean, MANDEEP-VETERINARY ASSISTANT 09/23/2024 Rhona Garcia is here for a(n) post procedure follow up 09/05/2024 bilateral 1st CMC joint injection with 80% relief. Patient states her finger and hands dont work, further explains having difficulty grasping and pinching, she is dropping things. Patient had EMG of upper extremities completed with no results reported today. Date of onset of pain: 2021 , pain has lasted greater than 3 months. Pain scale before treatment: 7/10 Pre-op pain score: 7/10 Post-op pain score: 5/10 Percentage and duration of relief after treatment: 09/05/2024 bilateral 1st CMC joint injection with 80% relief. Pain scale after treatment: 2/10 Chief Complaint Patient presents with Extremity Pain HPI: PT/HEP 2018 Back: 06/21/18 oswaldo SI joint injection with no relief on left 75% temporary relief on right. Right SI RFA 01/09/2020 with no relief. 10/15/20 Right SI RFA with 75% relief 03/04/21 RFA Left L 4/5, 5/1 with 50% relief currently. 12/27/18 Caudal not helpful. left lumbar RFA w/75% relief Right SI joint injection on 04/22/2021 with 80% relief then went down to 50% relief. 05/23/21 Right RFA L 4/5, 5/1 with 50% relief. 02/17/22 Caudal with no relief reported. 08/26/2021 Right SI injection w/ 50% Right SI joint injection 03/17/2022 50% relief. 10/27/2022 Right Sacroiliac Injection with 75% relief continuing Right SI joint injection on 06/16/2022 with at least 50% relief. 07/21/22 Rt L 4/5 5/ RFA w/50% relief pre-proc pain pre-proc pain 7/10 post proc /10 until Jul 2023 08/04/22 Lt L 09/06 5 RFA w/50% relief pre-proc pain 8/10 post proc pain 4/10 until Jul 2023 01/26/23 Oswaldo SI Inj w/80% relief continued 07/19/2022 Bilateral Sacroiliac Joint injection with 85% relief x 2 hours, and 50% relief continuing today Bilateral SI joint injection 05/18/23 with 85% relief for 2 hours and 50% continued relief. 08/24/2023 Left L4/5, 5/1 Radio Frequency Ablation with 80% relief continuing. Pre procedure pain 8/10. Post procedure pain /10/12/2023 Right L4/5, 5/1 Radio Frequency Ablation with 65% relief continuing. Pre procedure pain 8/10. Post procedure pain 3/10 Thumb: 09/22/22 Left CMC joint injection with 90% relief 01/18/24 First CMC joint injection with 90% relief that continues pre proc 6/10 post proc /09/05/24 Bilateral First CMC joint injection with 80% relief pre-proc pain 7/10 post proc / Wrist 04/06/2023 left wrist injection with 50% relief that continues left wrist injection on 07/13/2023 with 80% relief. Pre-procedural pain was reported as 6/10 post proc pain is 2/10 Neck: 06/08/19 Left C5/6,6/7, 7/1 no relief. JOANNE C 7/ on 07/16/20 w/75% relief. 02/29/2024 C JOANNE with 10% relief reported. Pre proc was 8/10 post proc and currently 7/10 04/11/24 left C5/6 6/7 MBB with 80% relief x1 week. 06/06/2024 Left C 5/6 6/7 MBB with 80% relief for 3 hours Pre-op pain score: 8/10 Post-op pain score: 2/10 1 hour post: 2/10 2 hour post: 2/10 4 hour post: 3/10 Shoulder right shoulder injection on 11/30/2023 with at least 80% relief. Neck Pain This is a chronic problem. The current episode started more than 1 year ago. The problem occurs constantly. The problem has been unchanged. The pain is associated with nothing. The pain is present in the left side and midline. The quality of the pain is described as aching. The pain is at a severity of 4/10. The pain is mild. The symptoms are aggravated by coughing, position, stress, sneezing, swallowing, twisting and bending. The pain is Same all the time. Stiffness is present All day, in the morning and at night. Associated symptoms include weakness (BUE). Pertinent negatives include no chest pain, fever, headaches, leg pain, numbness or photophobia. She has tried acetaminophen, muscle relaxants and home exercises for the symptoms. The treatment provided mild relief. Back Pain This is a chronic problem. The current episode started more than 1 year ago (early ). The problem occurs constantly. The problem is unchanged. The pain is present in the sacro-iliac, lumbar spine and gluteal (across). The quality of the pain is described as aching. The pain does not radiate. The pain is at a severity of 5/10. The pain is moderate. The pain is The same all the time. Exacerbated by: prolonged standing, walking and sitting ; lying down, stairs, bending, twisting, pushing/pulliing, cough/sneeze, transitioing, cold/heat Stiffness is present All day (varies with activity). Associated symptoms include weakness (BUE). Pertinent negatives include no bladder incontinence, bowel incontinence, chest pain, fever, headaches, leg pain or numbness. Risk factors include sedentary lifestyle. Treatments tried: PT/HEP 2019 w/no relief, NSAIDsx3 (naproxen, motrin, ibuprofen), heat, Flexeril, Neurontin, Elavil & [place] w/ some relief, OTC Arnica cream w/ mod relief. The treatment provided moderate relief. Wrist Pain The pain is present in the left wrist, right wrist, left hand, right hand, right fingers and left fingers. This is a chronic problem. The current episode started more than 1 year ago. There has been no history of extremity trauma. The problem occurs constantly. The problem has been gradually worsening. The quality of the pain is described as aching. The pain is at a severity of 2/10. The pain is mild. Pertinent negatives include no fever or numbness. The symptoms are aggravated by activity and contact. She has tried NSAIDS, heat and acetaminophen for the symptoms. The treatment provided mild relief. The effect of pain on patient's ADLS: Moderate Impairment. Past Medical History: Diagnosis Date Ankylosing spondylitis ([facility]) Asthma as a child Astigmatism contacts Back pain Benign ovarian tumor Carpal tunnel syndrome Cervical disc syndrome Chronic musculoskeletal pain Chronic pain disorder Diabetes mellitus type 2, controlled (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) Syncope Vertigo Past Surgical History: Procedure Laterality Date CARPAL TUNNEL RELEASE Right EXCISION MASS Left 12/26/2018 Performed by Higinio Okeefe MD at [facility] Right Thumb joint replacement INJECTION BLOCK EPIDURAL CAUDAL STEROID N/A 02/17/2022 Performed by Sky Hemphill MD at [facility] INJECTION BLOCK EPIDURAL CERVICAL/THORACIC: C 12/02 joanne N/A 02/29/2024 Performed by Sky Hemphill MD at [facility] INJECTION BLOCK EPIDURAL CERVICAL/THORACIC: C71 JOANNE N/A 07/16/2020 Performed by Sky Hemphill MD at [facility] INJECTION BLOCK NERVE MEDIAL BRANCH: left C 5/6, 6/7 Left 06/06/2024 Performed by Sky Hemphill MD at [facility] INJECTION BLOCK NERVE MEDIAL BRANCH: left C 5/6, 6/7 Left 04/11/2024 Performed by Sky Hemphill MD at [facility] INJECTION BLOCK NERVE MEDIAL BRANCH: left [id number] [id number] Left 06/18/2020 Performed by Sky Hemphill MD at [facility] INJECTION BLOCK SACROILIAC JOINT Bilateral 05/18/2023 Performed by Sky Hemphill MD at [facility] INJECTION BLOCK SACROILIAC JOINT Bilateral 01/26/2023 Performed by Sky Hemphill MD at [facility] INJECTION BLOCK SACROILIAC JOINT Right 10/27/2022 Performed by Sky Hemphill MD at [facility] INJECTION BLOCK SACROILIAC JOINT Right 03/17/2022 Performed by Sky Hemphill MD at [facility] INJECTION BLOCK SACROILIAC JOINT Right 08/26/2021 Performed by Sky Hemphill MD at [facility] INJECTION BLOCK SACROILIAC JOINT Right 04/22/2021 Performed by Sky Hemphill MD at [facility] INJECTION BLOCK SACROILIAC JOINT Right 10/15/2020 Performed by Sky Hemphill MD at [facility] INJECTION BLOCK SACROILIAC JOINT: Right 06/16/2022 Performed by Sky Hemphill MD at [facility] INJECTION BURSA INTERMEDIATE Left Wrist Left 07/13/2023 Performed by Sky Hemphill MD at [facility] INJECTION BURSA INTERMEDIATE Left wrist Left 04/06/2023 Performed by Sky Hemphill MD at [facility] INJECTION BURSA LARGE JOINT: left CMC Left 09/22/2022 Performed by Sky Hemphill MD at [facility] INJECTION BURSA LARGE JOINT: right shoulder Right 11/30/2023 Performed by Sky Hemphill MD at [facility] INJECTION BURSA LARGE JOINT: right shoulder Right 02/16/2023 Performed by Sky Hemphill MD at [facility] INJECTION BURSA SMALL JOINT Bilat 1st CMC Bilateral 09/05/2024 Performed by Sky Hemphill MD at [facility] INJECTION BURSA SMALL JOINT Left 1st CMC Left 01/18/2024 Performed by Sky Hemphill MD at [facility] INJECTION BURSA SMALL JOINT: wrist injection Left 10/07/2018 Performed by Sky Hemphill MD at [facility] INJECTION CAUDAL EPIDURAL WITH CATHETER, STEROID N/A 2018 Performed by Sky Hemphill MD at [facility] INJECTION LARGE JOINT BURSA: left ankle Left 10/22/2017 Performed by Sky Hemphill MD at [facility] INJECTION MEDIAL BRANCH NERVE BLOCK: left L34 45 51 Left 11/18/2018 Performed by Sky Hemphill MD at [facility] INJECTION SACROILIAC NERVE Bilateral 04/21/2019 Performed by Sky Hemphill MD at [facility] INJECTION SACROILIAC NERVE Left 11/01/2018 Performed by Sky Hemphill MD at [facility] JOINT REPLACEMENT Bilateral RADIO FREQUENCY ABLATION: left L34 45 [id number] Left 12/27/2018 Performed by Sky Hemphill MD at [facility] RADIO FREQUENCY ABLATION: left L34 [id number] Left 10/31/2019 Performed by Sky Hemphill MD at [facility] RADIO FREQUENCY ABLATION: right L34 45 51 Right 10/17/2019 Performed by Sky Hemphill MD at [facility] RADIO FREQUENCY ABLATION: right SI Right 05/16/2019 Performed by Sky Hemphill MD at [facility] RADIO FREQUENCY ABLATION: right SI rfa Right 01/09/2020 Performed by Sky Hemphill MD at [facility] RADIOFREQUENCY ABLATION SPINAL: left C 5/, 67 Left 07/18/2024 Performed by Sky Hemphill MD at [facility] RADIOFREQUENCY ABLATION SPINAL: left L 4/5 5/1 Left 08/04/2022 Performed by Sky Hemphill MD at [facility] RADIOFREQUENCY ABLATION SPINAL: left L 4/5 5/1 Left 03/04/2021 Performed by Sky Hemphill MD at [facility] RADIOFREQUENCY ABLATION SPINAL: left L 4/5, 5/1 Left 08/24/2023 Performed by Sky Hemphill MD at [facility] RADIOFREQUENCY ABLATION SPINAL: right L 4/5 5/1 Right 07/21/2022 Performed by Sky Hemphill MD at [facility] RADIOFREQUENCY ABLATION SPINAL: right L 4/5 5/1 Right 05/23/2021 Performed by Sky Hemphill MD at [facility] RADIOFREQUENCY ABLATION SPINAL: right L 4/5, 5/1 Right 10/12/2023 Performed by Sky Hemphill MD at [facility] RADIOFREQUENCY ABLATION SPINAL: right L34 45 51 Right 05/18/2017 Performed by Sky Hemphill MD at [facility] RADIOFREQUENCY ABLATION SPINAL: right SI Right 11/02/2017 Performed by Sky Hemphill MD at [facility] RADIOFREQUENCY ABLATION SPINAL: Right SI Right 03/05/2017 Performed by Sky Hemphill MD at [facility] RELEASE CARPAL TUNNEL Left 12/26/2018 Performed by Higinio Okeefe MD at [facility] REPAIR TENDON FINGER, 5th finger muscle repair Left 11/22/2020 Performed by Rahat Hirsch MD at [facility] TUBAL LIGATION Allergies Allergen Reactions Cinnamon Analogues Swelling Throat swells Coconut Swelling Throat swells Sulfa (Sulfonamide Antibiotics) Anaphylaxis ivp dye ok per pt noted for pain clinic House Dust Other reaction(s): Other: See Comments itching eyes, scratchy throat Oxycodone-Acetaminophen Other reaction(s): nightmares Darvocet A500 [Propoxyphene N-Acetaminophen] Other (See Comments) Nightmares Lactase GI Disturbance Shellfish Containing Products Abdominal Pain Ok for ivp dye per pt Noted for pain clinic Tizanidine (Bulk) Abdominal Pain Tree Nuts Abdominal Pain Family History Problem Relation Age of Onset Cancer Mother Lung cancer Mother Stroke Father Mahan's palsy Sister Rheum arthritis Nephew Graves' disease Niece Social History Socioeconomic History Marital status: Single Spouse name: Not on file Number of children: Not on file Years of education: Not on file Highest education level: Not on file Occupational History Not on file Tobacco Use Smoking status: Never Smokeless tobacco: Never Vaping Use Vaping status: Never Used Substance and Sexual Activity Alcohol use: Not Currently Drug use: No Sexual activity: Defer Partners: Male Other Topics Concern Not on file Social History Narrative Not on file Social Drivers of Health Financial Resource Strain: Medium Risk (02/07/2024) Overall Financial Resource Strain (CARDIA) Difficulty of Paying Living Expenses: Somewhat hard Food Insecurity: No Food Insecurity (09/23/2024) Hunger Screening Food Insecurity - Worry: Never True Food Insecurity - Inability: Never True Transportation Needs: Unmet Transportation Needs (02/07/2024) PRAPARE - Transportation Lack of Transportation (Medical): Yes Lack of Transportation (Non-Medical): Yes Physical Activity: Sufficiently Active (03/19/2023) Received from [facility] Exercise Vital Sign Days of Exercise per Week: 4 days Minutes of Exercise per Session: 90 min Stress: No Stress Concern Present (03/19/2023) Received from [facility] [place] [employer] - Occupational Stress Questionnaire Feeling of Stress : Only a little Social Connections: Socially Isolated (03/19/2023) Received from [facility] Social Connection and Isolation Panel [NHANES] Frequency of Communication with Friends and Family: Once a week Frequency of Social Gatherings with Friends and Family: Never Attends Yarsanism Services: Never Active Member of Clubs or Organizations: No Attends Club or Organization Meetings: Never Marital Status: Interpersonal Safety: Not At Risk (03/19/2023) Received from [facility] Healthcare Humiliation, Afraid, Rape, and Kick questionnaire Fear of Current or Ex-Partner: No Emotionally Abused: No Physically Abused: No Sexually Abused: No Housing Instability: Low Risk (02/07/2024) Housing Instability Housing Instability: No Review of Systems Constitutional: Negative. Negative for fever. HENT: Negative. Eyes: Negative for photophobia. Respiratory: Negative. Cardiovascular: Negative. Negative for chest pain. Gastrointestinal: Negative. Negative for bowel incontinence. Genitourinary: Negative. Negative for bladder incontinence. Musculoskeletal: Positive for back pain and neck pain. Allergic/Immunologic: Negative. Neurological: Positive for weakness (BUE). Negative for numbness and headaches. Hematological: Negative. Psychiatric/Behavioral: Negative. Vital Signs: BP 118/64 (BP Site: Right Arm, BP Postition: Sitting) Pulse 100 Resp 20 Physical Exam: GENERAL - Healthy patient that appears stated age. HEENT - Normocephalic / Atraumatic, Extraoccular movements intact, trachea midline, thyroid within normal limits. CV - pulse regular, Warm extremities with appropriate color of nailbeds. RESP - No obvious wheezing, No Shortness of Breath, No overexertion response to exam maneuvers. COORDINATION - remains intact. PSYCH - Alert and Oriented x4, Attentive and appropriate, constitutionally normal, displays normal mood and affect per situation, answered questions appropriately during examination, demonstrated appropriate attention during discussion, demonstrated appropriate cognitive reasoning and understanding of the medical condition by asking appropriate questions regarding the diagnosis and risks/benefits/alternatives of treatment modalities. No obvious deficits in memory, reasoning, or intellect. Cervical: SKIN - No rashes or bruising in the area of the patient s pain. LYMPH NODES - demonstrate no obvious enlargement. EXTREMITIES - Upper extremities are warm, with minimal edema and palpable pulses. No Significant tenderness to palpation noted in the cervical spine and paraspinal musculature. Minimal pain is elicited with flexion, extension, and lateral rotation of the cervical spine. Range of motion is not diminished with these motions. Facet palpation is noted to be minimally painful, but not concordant with the patient s normal pain complaints. STRENGTH - noted to be 5 out of 5 all muscle groups bilateral upper extremities including muscles involving shoulder flexion and abduction, elbow flexion and extension, as well as wrist flexion and extension and intrinsic muscles of the hand. No notable atrophy, fasciculations or spasm. SENSORY - No notable sensory deficits in the bilateral upper extremities to touch or pinprick in all dermatomal distributions. Spurlings sign is negative. Tenderness to palpation noted over the Right Shoulder Joint. Pain is noted with palpation of the acromion and clavical as well as the acromioclavicular junction. No significant pain at the sternoclavicular junction. Some pain is noted at the bicipital groove and the subacromial bursa. Pain is elicited with flexion, abduction, internal rotation, and external rotation of the shoulder with active and passive motion which is consistent with some of the patient s normal pain. Some grinding is noted with these motions. No obvious ligamental laxity is noted. Empty Can Test is negative. Neers Sign is negative. Thoracic: SKIN - No rashes or bruising in the area of the patient s pain. LYMPH NODES - demonstrate no obvious enlargement. EXTREMITIES - Extremities are warm, with minimal edema and palpable pulses. Tenderness to palpation noted in the thoracic spine and paraspinal musculature. Pain is elicited with flexion, extension, and lateral rotation of the thoracic spine. Range of motion is diminished with these motions due to pain. Facet palpation is noted to be somewhat tender but not concordant with the patient s normal pain complaints. STRENGTH - noted to be 5 out of 5 all muscle groups bilateral upper and lower extremities. No notable atrophy, fasciculations or spasm. SENSORY - No notable sensory deficits in the thoracic dermatomal distributions. Assessment/Treatment Plan: Rhona was seen today for extremity pain. Diagnoses and all orders for this visit: Localized osteoarthritis of right shoulder - Case request operating room: INJECTION BURSA LARGE JOINT: right shoulder Lumbosacral spondylosis without myelopathy - HYDROcodone-acetaminophen (NORCO) 5-325 mg per tablet; Take 1 tablet by mouth 4 (four) times a day as needed for pain. Max Daily Amount: 4 tablets Encounter for long-term opiate analgesic use Disc displacement, thoracic - MR thoracic spine without contrast; Future Refill [place] 5/325 mg QID PRN Thoracic spine MRI - It is felt that additional diagnostic testing is necessary to further evaluate the patients current pain pathology. For this reason, we will order additional imaging noted above. It is hopeful that this study will identify a significant pain generator that will be amenable to therapy. It is felt that this modality is necessary due to the severity and chronicity of symptoms and physical exam findings combined with the lack of recent imaging of the area. An MRI is specifically felt to be necessary due to the physical exam findings noted above and the patient s description of refractory pain in a neuropathic distribution that is not relieved by change in body position and interferes with the patient s activities of daily living Right Shoulder Injection -under fluoroscopy with the use of contrast dye (unless contraindicated) It is hopeful that the described procedure will provide symptomatic pain relief. It is felt to be medically necessary noting that the patient has tried and failed more conservative modalities of therapy and this is the next most appropriate step. The procedure was described in detail to the patient as well as the potential benefits of pain reduction alongside risks of the procedure and alternatives. Risks were described as including, but not limited to bleeding, infection, nerve damage, spinal cord injury, paralysis, stroke, dural puncture headache, and medication reaction. The patient expressed understanding regarding the risks and benefits and wishes to proceed. It was explained that shoulder injections occasionally require a repeat injection before significant relief is noted, but we will determine after each injection if another one is indicated. Depending on the amount and duration of relief obtained from the injection, additional modalities of therapy including medications and physical therapy may need to be utilized alongside or following the injections. We may also need to consider surgical options if injections fail to provide relief for a reasonable duration. Follow up 2 weeks after procedure The medications I have prescribed have been reviewed for medication interactions/contraindications and/or for upcoming procedures: continue current medication regimen without any changes. DISCUSSION: Treatment options discussed with patient and all questions answered to patient's satisfaction. Discussed the rules and regulations surrounding prescription of opioids and compliance at length. Failure to follow the rules and regulation will result in tapering and discontinuation of medications if applicable. The patient has been instructed as to the type of medication prescribed along with directions for use. Potential side effects have been discussed, along with risks and benefits of taking this medication. (S)he was instructed as to what to do if (s)he experiences side effects, including when to discontinue the medication. (S)he was advised to call this office in this event. Also discussed at length safety and security of RX and medications. Due to the high risk nature of this patient's pain medication regimen, frequent office visit refill appointments (every 1-3 months) are medically necessary to monitor for an addiction disorder. Prescribed medication that requires intensive monitoring for toxicity: [place]. OARRS and most recent UDS were reviewed, discussed and appropriate for medications prescribed. [place] pill count completed at today's office visit. Dose: 5/325 mg QID Quantity Dispensed 120 Quantity Remaining 57 Fill date on prescription bottle 09/05/2024 appropriate Patient educated to bring medication to every office visit. [place] was refilled at today's office visit. It is noted that the patient did have good response from the previously performed procedure. It is felt that the patient would benefit from an additional procedure of the same nature in that the same symptoms have returned. It is hopeful that this additional injection will provide additional benefit and duration when combined with the previous injection. The spine model was demonstrated and Xray, MRI, and EMG was reviewed and used to explain the condition. Chronic conditions not treated during this visit that affected my overall medical decision making: Comorbidity- Diabetes The patient has a history of diabetes mellitus currently managed with medications. This will need to be considered prior to any procedure that would require the injection of steroid in that the patient may experience a transient increase in glucose as a result. Additional consideration will need to be given to timing the procedure early in the morning in that the patient will need to be fasting prior to the administration of anesthesia. Every effort will be made to perform the procedure as a 1st case due to this condition. And the patient will be instructed to hold their diabetic medications on that morning. If necessary, a blood glucose test can also be performed that morning. The risks/ benefits/ and alternatives will be weighed and explained to the patient prior to any procedure. OARRS: Reviewed. Scribe Statement: Rani Kim CNA\, scribed for and in the presence of AMEYA KINCAID who performed the above service. Rani Dominguez CNA 09/23/24 1013 AMEYA Kincaid 09/25/24 1439 documented in this encounter [facility] 09-23-2024 Instructions Rani Dominguez CNA - 09/23/2024 9:15 AM EDT Joint Injections / Other These procedure(s) involve injecting steroid medications into a joint or other area explained by your physician. Steroid medicine decreases pain and inflammation. The injection may also contain an anesthetic (numbing medicine) to decrease pain. It may be done to treat conditions such as arthritis, gout, carpal tunnel syndrome and more. The injections may be given in your hip, knee, ankle, shoulder, elbow, wrist, or ankle. How Long Will This Procedure Last? The extent and duration of pain relief may depend on the amount of inflammation and how many areas are involved. Other coexisting factors may be responsible for your pain. You and your physician will discuss expected results of procedure(s). After Your Injection You may experience soreness and tenderness at the area of treatment. This pain may not occur until later today after the numbing medicine wears off. The steroid can take 3-5 days to work and provide noticeable improvement. Activity You may resume normal activity as your comfort level allows. Medications Resume your routine medications after your procedure. You may resume blood thinners per your regular schedule after the procedure. If you received sedation: If you received sedation for your procedure, you may feel sleepy or not yourself for several hours today. For the next 24 hours avoid activities that requires alertness or coordination. This includes: Driving or operating heavy machinery Using power tools Consuming alcohol Do not make important or complex decisions or sign legal documents in the next 24 hours. Other Instructions: If you feel severe pain at the injection site with swelling and redness, increased leg weakness, a fever of 101 or higher, headache (or worsening headache), changes in vision or urinary retention: Please call the office at , or have someone take you to the nearest emergency room. Tell the emergency room staff that you recently had a spine injection. A doctor must evaluate you for bleeding and injection complications. If you lose control over bowel, bladder, or legs: Go to the nearest emergency room. If you are diabetic, the steroids used in this procedure can increase your blood sugar. If your blood sugar is 250mg/dL or higher, contact your primary care physician, or the doctor who manages your diabetes, to discuss how to get it back to normal. documented in this encounter [facility] 09-16-2024 Telephone encounter Note Clarification provided yesterday. Please see other encounter. [facility] or results read 09/15/24. [facility] 09-16-2024 Miscellaneous Notes Clarification provided yesterday. Please see other encounter. [facility] or results read 09/15/24. Please call [facility] to answer questions about the hepatitis panel panel and obtain results. Thank you. For chart; Please Call patient if MyChart note not read to review results/released to My Chart if tests completed at [facility]: Mildly low normal hemoglobin- care per primary care provider. Normal rest of labs and no inflammation. Continue same vitamin D intake with food. Recheck nonfasting labs in 3months.The orders have been placed. Please send orders cmp, cbc, esr, crp, vitamin D. Orders in epic. Please fax results to rheum office. Thank you! Happy to further review and discuss at follow up visit. Thank you. [facility] 09/11/24 low hgb 11.2normal cmp, potassium 4, creat 0.76, calcium 9, alkaline phosphatase 78, ast 16, alt 14, crp 0.4 (NL0-0.744mg/dL), vitamin D 54.8, esr 5 (NL0-30mm/hr), wbc 5.2, plts 286;negative quantiferon tb; Received lab results from [facility]. Results placed on your desk for review. Awaiting hepatitis panel redraw. documented in this encounter [facility] 09-16-2024 Telephone encounter Note Please call [facility] to answer questions about the hepatitis panel panel and obtain results. Thank you. For chart; [facility]/released to My Chart if tests completed at [facility]: Mildly low normal hemoglobin- care per primary care provider. Normal rest of labs and no inflammation. Continue same vitamin D intake with food. Recheck nonfasting labs in 3months.The orders have been placed. Please send orders cmp, cbc, esr, crp, vitamin D. Orders in epic. Please fax results to rheum office. Thank you! Happy to further review and discuss at follow up visit. [facility] you[facility] hgb 11.2normal cmp, potassium 4, creat 0.76, calcium 9, alkaline phosphatase 78, ast 16, alt 14, crp 0.4 (NL0-0.744mg/dL), vitamin D 54.8, esr 5 (NL0-30mm/hr), wbc 5.2, plts 286;negative quantiferon tb; [facility] 09-15-2024 Telephone encounter Note Received lab results from [facility]. Results placed on your desk for review. Awaiting hepatitis panel redraw. T [facility] 09-15-2024 Telephone encounter Note Spoke with lab at [facility]. Clarification provided. Labs mailed to patient's home address. [facility] 09-15-2024 Miscellaneous Notes Spoke with lab at [facility]. Clarification provided. Labs mailed to patient's home address. Please call [facility] to answer questions about the hepatitis panel panel and the TB test. Patient willing to completed tests. Please fax results to rheumatology office. Thank you. Please Call patient if [facility] read to review results/released to My Chart if tests completed at [facility]: Mildly low normal hemoglobin- care per primary care provider. Normal rest of labs and no inflammation. Continue same vitamin D intake with food. Recheck nonfasting labs in 3months.The orders have been placed. Please send orders cmp, cbc, esr, crp, vitamin D. Orders in epic. Please fax results to rheum office. Thank you! Happy to further review and discuss at follow up visit. Thank you. [facility] 09/11/24 low hgb 11.2normal cmp, potassium 4, creat 0.76, calcium 9, alkaline phosphatase 78, ast 16, alt 14, crp 0.4 (NL0-0.744mg/dL), vitamin D 54.8, esr 5 (NL0-30mm/hr), wbc 5.2, plts 286; Received labs from [facility]. Results placed on Dr Ellis's desk for review. documented in this encounter [facility] 09-15-2024 Telephone encounter Note Spoke with Luly at [facility] lab. Clarification given. Past lab result -Hep remote panel- from 2020 also faxed ([phone]) . Direct line provided if additional clarification needed. [facility] 09-15-2024 Miscellaneous Notes Spoke with Luly at [facility]. Clarification given. Past lab result -Hep remote panel- from 2020 also faxed ([phone]) . Direct line provided if additional clarification needed. Please see results note Please call [facility] to answer questions about the hepatitis panel panel and the TB test. Patient willing to completed tests. Please fax results to rheumatology office. Thank you. Good Morning, Hope you are doing well. Thank you for update. Office will contact lab to clarify their questions. Your test results show Mildly low normal hemoglobin- care per primary care provider. Normal rest of labs and no inflammation. Continue same vitamin D intake with food. Recheck nonfasting labs in 3months.The orders have been placed. Office will send orders. Please fax results to rheum office. Thank you! Happy to further review and discuss at follow up visit. Stay Warm, Safe & healthy, and Have a wonderful day! Dr.Tsai Jalil :) documented in this encounter [facility] 09-15-2024 Telephone encounter Note Please see results note Please call [facility] to answer questions about the hepatitis panel panel and the TB test. Patient willing to completed tests. Please fax results to rheumatology office. Thank you. Good Morning, Hope you are doing well. Thank you for update. Office will contact lab to clarify their questions. Your test results show Mildly low normal hemoglobin- care per primary care provider. Normal rest of labs and no inflammation. Continue same vitamin D intake with food. Recheck nonfasting labs in 3months.The orders have been placed. Office will send orders. Please fax results to rheum office. Thank you! Happy to further review and discuss at follow up visit. Stay Warm, Safe & healthy, and Have a wonderful day! Dr.Tsai Jalil :) [facility] 09-15-2024 Telephone encounter Note Please call [facility] to answer questions about the hepatitis panel panel and the TB test. Patient willing to completed tests. Please fax results to rheumatology office. Thank you. Please Call patient if MyChart note not read to review results/released to My Chart if tests completed at [facility]: Mildly low normal hemoglobin- care per primary care provider. Normal rest of labs and no inflammation. Continue same vitamin D intake with food. Recheck nonfasting labs in 3months.The orders have been placed. Please send orders cmp, cbc, esr, crp, vitamin D. Orders in epic. Please fax results to rheum office. Thank you! Happy to further review and discuss at follow up visit. Thank you. [facility] 09/11/24 low hgb 11.2normal cmp, potassium 4, creat 0.76, calcium 9, alkaline phosphatase 78, ast 16, alt 14, crp 0.4 (NL0-0.744mg/dL), vitamin D 54.8, esr 5 (NL0-30mm/hr), wbc 5.2, plts 286; [facility] 09-12-2024 Telephone encounter Note Received labs from [facility]. Results placed on Dr Ellis's desk for review. [facility] 09-11-2024 History of Present illness Narrative Subjective Patient ID: Rhona Garcia is a 64 y.o. female. [place] presents to the office for routine follow up for hypertension and diabetes. She currently is on lisinopril 20 mg for hypertension. She is on glimepiride 1 mg once daily for diabetes she reports she is monitoring her blood sugars routinely and they have been good. Last A1c was completed on 02/11/2024 and was 7%. Repeat today was 7%. She reports she is doing and the only concern she notices is that she gets shaky if she stands too long. The following portions of the patient's history were reviewed and updated as appropriate: allergies, current medications, past family history, past medical history, past social history, past surgical history, problem list, and medication reconciliation was completed including current medication and post discharge medication. Review of Systems Constitutional: Negative for chills, diaphoresis, fatigue, fever and unexpected weight change. HENT: Negative. Eyes: Negative. Respiratory: Negative for cough, chest tightness, shortness of breath and wheezing. Cardiovascular: Negative for chest pain, palpitations and leg swelling. Gastrointestinal: Negative for abdominal pain, diarrhea, nausea and vomiting. Endocrine: Negative for polydipsia, polyphagia and polyuria. Genitourinary: Negative for difficulty urinating, frequency, hematuria and urgency. Musculoskeletal: Negative for arthralgias, gait problem, joint swelling and neck pain. Skin: Negative. Neurological: Negative for dizziness, syncope, weakness, light-headedness, numbness and headaches. Psychiatric/Behavioral: Negative for self-injury and suicidal ideas. Objective Physical Exam Vitals and nursing note reviewed. Constitutional: General: She is not in acute distress. Appearance: Normal appearance. She is not ill-appearing. HENT: Head: Normocephalic and atraumatic. Cardiovascular: Rate and Rhythm: Normal rate and regular rhythm. Pulses: Normal pulses. Dorsalis pedis pulses are 2+ on the right side and 2+ on the left side. Heart sounds: Normal heart sounds. Pulmonary: Effort: Pulmonary effort is normal. Breath sounds: Normal breath sounds. Musculoskeletal: Cervical back: Normal range of motion and neck supple. Right lower leg: No edema. Left lower leg: No edema. Feet: Right foot: Protective Sensation: 8 sites tested. 7 sites sensed. Skin integrity: Skin integrity normal. Toenail Condition: Right toenails are normal. Left foot: Protective Sensation: 8 sites tested. 7 sites sensed. Skin integrity: Skin integrity normal. Toenail Condition: Left toenails are normal. Skin: Capillary Refill: Capillary refill takes less than 2 seconds. Findings: No erythema or rash. Neurological: General: No focal deficit present. Mental Status: She is alert and oriented to person, place, and time. Psychiatric: Mood and Affect: Mood normal. Behavior: Behavior normal. Diabetic foot exam: Left: Filament test present Right: Filament test present Assessment/Plan Diabetes well-controlled as evidence of hemoglobin A1c, continue current regimen. Hypertension continues to be elevated on lisinopril 20 mg once daily. Change BP to nifedipine and reduce lisinopril to 10 mg. Up to date on eye exam. DM foot exam complete today, sensation intact. Follow up 6 weeks for HTN. Rhona was seen today for follow-up. Diagnoses and all orders for this visit: Diabetes mellitus due to underlying condition with hyperosmolarity without coma, without long-term current use of insulin ([facility]) - POCT Hemoglobin A1c - Diabetic foot exam performed Ankylosing spondylitis of multiple sites in spine ([facility]) Primary hypertension Other orders - NIFEdipine XL (PROCARDIA XL) 30 mg 24 hr tablet; Take 1 tablet (30 mg total) by mouth in the morning. - lisinopriL (PRINIVIL,ZESTRIL) 20 mg tablet; Take 0.5 tablets (10 mg total) by mouth in the morning. AGUSTIN Cantu 09/14/24 1420 documented in this encounter [facility] 09-02-2024 Miscellaneous Notes Last Office Visit: 08/21/2024 Next Office Visit: 09/23/2024 Last Urine Drug Screen: Lab Results Component Value Date BENZOSCRN Negative 07/03/2023 OARRS appropriate documented in this encounter [facility] 09-02-2024 Telephone encounter Note Last Office Visit: 08/21/2024 Next Office Visit: 09/23/2024 Last Urine Drug Screen: Lab Results Component Value Date BENZOSCRN Negative 07/03/2023 OARRS appropriate [facility] 08-29-2024 Note HNO ID: [id number] Author: ?, ?, ? Service: ? Author Type: ? Type: Progress Notes Filed: 09/02/2024 09:08 Note Text: [facility] Special[facility] Refill Assessment Medication(s): Enbrel Patient's current medication list and adherence status to current therapy were reviewed by Specialty Pharmacy clinical pharmacist to identify any new drug interactions or non-compliance to therapy. Therapy continues to be appropriate for disease, patient response, and medical condition. Verification of therapeutic benefit and effectiveness with current therapy was completed. Adverse events, barriers in adherence, and side effects were assessed and addressed if applicable. Will proceed with refill with no changes in therapy - patient progressing towards achieving therapeutic goals based on medication-specific laboratory parameters, disease state markers and outcomes. Office/provider notes have been reviewed prior to dispensing the medication. 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 Med/dose confirmed: Yes Supplies needed: No supplies needed Missed doses: No Estimated days supply on hand: 1 Next cycle/dose due: 09/02/24 Copay amount: 0 Payment confirmed: Yes Delivery method: FedEx Signature required: Waived on patient request Delivery address: [address] [place] [address] [address] [place] [address] Delivery date: 09/04/24 Questions or concerns for the pharmacist?: No Did you have any side effects believed to be related to this medication, that resulted in hospitalization?: No Current Outpatient Medications on File Prior to Visit Medication Sig amitriptyline (ELAVIL) 25 mg tablet Take 2 tablets by mouth daily at bedtime. colchicine 0.6 mg tablet Take 1tab by mouth up to twice a day as tolerated. May cause diarrhea. cyclobenzaprine (FLEXERIL) 10 mg tablet Take 1-2tabs 3times a day gabapentin (NEURONTIN) 600 mg tablet Take 4caps by mouth per day predniSONE (DELTASONE) 5 mg tablet TAKE 6 TABLETS BY MOUTH ONCE DAILY FOR 1 DAY; then TAKE 5 TABLETS BY MOUTH ONCE DAILY FOR 1 DAY; then TAKE 4 TABLETS BY MOUTH ONCE DAILY FOR 1 DAY; then TAKE 3 TABLETS BY MOUTH ONCE DAILY FOR 1 DAY; then TAKE 2 TABLETS BY MOUTH ONCE DAILY FOR 1 DAY; then TAKE 1 TABLET BY MOUTH ONCE DAILY FOR 1 DAY; take all doses WITH food and avoid NSAIDS Etanercept (ENBREL SURECLICK) 50 mg/mL (1 mL) Inject 50mg (1 pen) subcutaneously once a week. Hold if ill or on antibiotics. No LIVE vaccines. lisinopril (ZESTRIL) 40 mg tablet Take 1 tablet by mouth every afternoon. omeprazole (PRILOSEC) 20 mg capsule Take 1 capsule by mouth two times a day. acyclovir (ZOVIRAX) 400 mg tablet take 1 tablet by mouth twice a day glimepiride (AMARYL) 1 mg tablet therapeutic multivitamin (THERA VITAMIN) tablet Take 1 tablet by mouth every morning. Biotin 10,000 mcg cap Take by mouth twice daily. HYDROcodone-acetaminophen (NORCO) 5-325 mg per tablet Take 1 tablet by mouth every 8 hours as needed. No current facility-administered medications on file prior to visit. [facility] CLINICAL ASSESSMENT - INFLAMMATORY CONDITIONS V6: Assessment to use: Refill Date of influenza vaccination reminder: 07/14/2024 Date of most recent vaccination assessment: 07/14/2024 Treatment Plan Information: Enbrel Inject 50mg (1 pen) subcutaneously once a week. Hold if ill or on antibiotics. No LIVE vaccines. Est. Tx Plan Start Date: 07/15/2024 Estimated Start Date Info: No information available Est. Estimated Treatment Duration: Until lack of efficacy Priti Mendieta ([facility]) [facility] FAX: [facility] 08-25-2024 Telephone encounter Note Please call and schedule nonfasting labs this month. Temporary medication refilled Thank you. Patient's request for medication is as follows: Requested Prescriptions Pending Prescriptions Disp Refills amitriptyline (ELAVIL) 25 mg tablet 180 tablet 0 Sig: Take 2 tablets by mouth daily at bedtime. colchicine 0.6 mg tablet 60 tablet 0 Sig: Take 1tab by mouth up to twice a day as tolerated. May cause diarrhea. cyclobenzaprine (FLEXERIL) 10 mg tablet 450 tablet 0 Sig: Take 1-2tabs 3times a day gabapentin (NEURONTIN) 600 mg tablet 360 tablet 0 Sig: Take 4caps by mouth per day predniSONE (DELTASONE) 5 mg tablet 21 tablet 0 Sig: TAKE 6 TABLETS BY MOUTH ONCE DAILY FOR 1 DAY; then TAKE 5 TABLETS BY MOUTH ONCE DAILY FOR 1 DAY; then TAKE 4 TABLETS BY MOUTH ONCE DAILY FOR 1 DAY; then TAKE 3 TABLETS BY MOUTH ONCE DAILY FOR 1 DAY; then TAKE 2 TABLETS BY MOUTH ONCE DAILY FOR 1 DAY; then TAKE 1 TABLET BY MOUTH ONCE DAILY FOR 1 DAY; take all doses WITH food and avoid NSAIDS Prescription(s) as above. Please process accordingly. Eugenio Ellis MD [facility] 08-25-2024 Miscellaneous Notes Please call and schedule nonfasting labs this month. Temporary medication refilled Thank you. Patient's request for medication is as follows: Requested Prescriptions Pending Prescriptions Disp Refills amitriptyline (ELAVIL) 25 mg tablet 180 tablet 0 Sig: Take 2 tablets by mouth daily at bedtime. colchicine 0.6 mg tablet 60 tablet 0 Sig: Take 1tab by mouth up to twice a day as tolerated. May cause diarrhea. cyclobenzaprine (FLEXERIL) 10 mg tablet 450 tablet 0 Sig: Take 1-2tabs 3times a day gabapentin (NEURONTIN) 600 mg tablet 360 tablet 0 Sig: Take 4caps by mouth per day predniSONE (DELTASONE) 5 mg tablet 21 tablet 0 Sig: TAKE 6 TABLETS BY MOUTH ONCE DAILY FOR 1 DAY; then TAKE 5 TABLETS BY MOUTH ONCE DAILY FOR 1 DAY; then TAKE 4 TABLETS BY MOUTH ONCE DAILY FOR 1 DAY; then TAKE 3 TABLETS BY MOUTH ONCE DAILY FOR 1 DAY; then TAKE 2 TABLETS BY MOUTH ONCE DAILY FOR 1 DAY; then TAKE 1 TABLET BY MOUTH ONCE DAILY FOR 1 DAY; take all doses WITH food and avoid NSAIDS Prescription(s) as above. Please process accordingly. Eugenio Ellis MD Images from the original note were not included. Most recent Rheumatology visit: 03/29/2024 (with Eugenio Ellis) Last Bone Density on file: None on file Rheumatology Care Team: None on file Recent Office Visits - This Specialty 03/29/2024 Ankylosing spondylitis of multiple sites in spine ([facility]) Rheumatology Eugenio Ellis MD 01/17/2024 Ankylosing spondylitis of multiple sites in spine ([facility]) Rheumatology Eugenio Ellis MD 04/06/2023 Ankylosing spondylitis of multiple sites in spine ([facility]) Rheumatology Eugenio Ellis MD Upcoming Rheumatology Appointments - Next 365 Days Visit Type Date Time Department [facility] 12/01/2024 1:20 PM [facility] CBC: Latest Ref Rng & Units 07/14/2020 01/19/2021 CBC WBC 3.70 - 11.00 k/uL 6.81 4.43 Hemoglobin 11.5 - 15.5 g/dL 12.8 12.0 Hematocrit 36.0 - 46.0 % 39.5 38.0 Platelet Count 150 - 400 k/uL 296 237 Vitamin D: None on file in the last 6 months LFT: Latest Ref Rng & Units 07/14/2020 01/19/2021 CMP Sodium 136 - 144 mmol/L 135 138 Potassium 3.7 - 5.1 mmol/L 4.5 5.1 Chloride 97 - 105 mmol/L 98 103 CO2 22 - 30 mmol/L 27 26 Glucose 74 - 99 mg/dL 170 172 BUN 7 - 21 mg/dL 11 18 Creatinine 0.58 - 0.96 mg/dL 0.81 0.91 Calcium 8.5 - 10.2 mg/dL 9.4 9.4 AST 13 - 35 U/L 20 14 ALT 7 - 38 U/L 33 13 Alkaline Phosphatase 34 - 123 U/L 94 94 Hepatic Function: Creatinine: None on file in the last 6 months ESR/CRP: None on file in the last 6 months Uric Acid: None on file in the last 6 months Open Standing (Multiple Instance) Lab Orders None Open Future (Single Instance) Lab Orders Expected Expires Ordered COMPREHENSIVE METABOLIC PANEL [SQCMP] 07/01/24 07/01/25 07/01/24 Auth. provider: Eugenio Ellis MD Assoc. diagnoses: Elevated LFTs COMPLETE BLOOD COUNT [SQCBC] 07/01/24 07/01/25 07/01/24 Auth. provider: Eugenio Ellis MD Assoc. diagnoses: Anemia of chronic disease SEDIMENTATION RATE, WESTERGREN [SQWSR] 07/01/24 07/01/25 07/01/24 Auth. provider: Eugenio Ellis MD Assoc. diagnoses: Elevated sed rate, Elevated C-reactive protein (CRP) C-REACTIVE PROTEIN [SQCRP] 07/01/24 07/01/25 07/01/24 Auth. provider: Eugenio Ellis MD Assoc. diagnoses: Elevated sed rate, Elevated C-reactive protein (CRP) VITAMIN D 25 HYDROXY [SQVITD] 07/01/24 07/01/25 07/01/24 Auth. provider: Eugenio Ellis MD Assoc. diagnoses: Vitamin D deficiency HEP REMOTE PANEL BL [SQHREMOP] 07/01/24 07/01/25 07/01/24 Auth. provider: Eugenio Ellis MD Assoc. diagnoses: Elevated LFTs BLOOD TB SCREEN [SQINFTBP] 07/01/24 07/01/25 07/01/24 Auth. provider: Eugenio Ellis MD Assoc. diagnoses: Screening-pulmonary TB documented in this encounter [facility] 08-25-2024 Telephone encounter Note Images from the original note were not included. Most recent Rheumatology visit: 03/29/2024 (with Eugenio Ellis) Last Bone Density on file: None on file Rheumatology Care Team: None on file Recent Office Visits - This Specialty 03/29/2024 Ankylosing spondylitis of multiple sites in spine ([facility]) Rheumatology Eugenio Ellis MD 01/17/2024 Ankylosing spondylitis of multiple sites in spine ([facility]) Rheumatology Eugenio Ellis MD 04/06/2023 Ankylosing spondylitis of multiple sites in spine ([facility]) Rheumatology Eugenio Ellis MD Upcoming Rheumatology Appointments - Next 365 Days Visit Type Date Time Department [facility] 12/01/2024 1:20 PM [facility] [place] CBC: Latest Ref Rng & Units 07/14/2020 01/19/2021 CBC WBC 3.70 - 11.00 k/uL 6.81 4.43 Hemoglobin 11.5 - 15.5 g/dL 12.8 12.0 Hematocrit 36.0 - 46.0 % 39.5 38.0 Platelet Count 150 - 400 k/uL 296 237 Vitamin D: None on file in the last 6 months LFT: Latest Ref Rng & Units 07/14/2020 01/19/2021 CMP Sodium 136 - 144 mmol/L 135 138 Potassium 3.7 - 5.1 mmol/L 4.5 5.1 Chloride 97 - 105 mmol/L 98 103 CO2 22 - 30 mmol/L 27 26 Glucose 74 - 99 mg/dL 170 172 BUN 7 - 21 mg/dL 11 18 Creatinine 0.58 - 0.96 mg/dL 0.81 0.91 Calcium 8.5 - 10.2 mg/dL 9.4 9.4 AST 13 - 35 U/L 20 14 ALT 7 - 38 U/L 33 13 Alkaline Phosphatase 34 - 123 U/L 94 94 Hepatic Function: Creatinine: None on file in the last 6 months ESR/CRP: None on file in the last 6 months Uric Acid: None on file in the last 6 months Open Standing (Multiple Instance) Lab Orders None Open Future (Single Instance) Lab Orders Expected Expires Ordered COMPREHENSIVE METABOLIC PANEL [SQCMP] 07/01/24 07/01/25 07/01/24 Auth. provider: Eugenio Ellis MD Assoc. diagnoses: Elevated LFTs COMPLETE BLOOD COUNT [SQCBC] 07/01/24 07/01/25 07/01/24 Auth. provider: Eugenio Ellis MD Assoc. diagnoses: Anemia of chronic disease SEDIMENTATION RATE, WESTERGREN [SQWSR] 07/01/24 07/01/25 07/01/24 Auth. provider: Eugenio Ellis MD Assoc. diagnoses: Elevated sed rate, Elevated C-reactive protein (CRP) C-REACTIVE PROTEIN [SQCRP] 07/01/24 07/01/25 07/01/24 Auth. provider: Eugenio Ellis MD Assoc. diagnoses: Elevated sed rate, Elevated C-reactive protein (CRP) VITAMIN D 25 HYDROXY [SQVITD] 07/01/24 07/01/25 07/01/24 Auth. provider: Eugenio Ellis MD Assoc. diagnoses: Vitamin D deficiency HEP REMOTE PANEL BL [SQHREMOP] 07/01/24 07/01/25 07/01/24 Auth. provider: Eugenio Ellis MD Assoc. diagnoses: Elevated LFTs BLOOD TB SCREEN [SQINFTBP] 07/01/24 07/01/25 07/01/24 Auth. provider: Eugenio Ellis MD Assoc. diagnoses: Screening-pulmonary TB [facility] 08-21-2024 History of Present illness Narrative [facility] [address] [place] [address] Patient: Rhona Garcia Sex: female : 1960 Age: 64 y.o. 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 Her worst pain now is in her bilateral wrist and CMC joints. Date of onset of pain: many years , pain has lasted greater than 3 months. Pain scale before treatment: 8/10 Pre-op pain score: 8/10 Percentage and duration of relief after treatment: see above Pain scale after treatment: 07/14 Chief Complaint Patient presents with Neck Pain Hand Pain Back Pain HPI: PT/HEP 2018 Back: 06/21/18 oswaldo SI joint injection with no relief on left 75% temporary relief on right. Right SI RFA 01/09/2020 with no relief. 10/15/20 Right SI RFA with 75% relief 03/04/21 RFA Left L 4/5, 5/1 with 50% relief currently. 12/27/18 Caudal not helpful. left lumbar RFA w/75% relief Right SI joint injection on 04/22/2021 with 80% relief then went down to 50% relief. 05/23/21 Right RFA L 4/5, 5/1 with 50% relief. 02/17/22 Caudal with no relief reported. 08/26/2021 Right SI injection w/ 50% Right SI joint injection 03/17/2022 50% relief. 10/27/2022 Right Sacroiliac Injection with 75% relief continuing Right SI joint injection on 06/16/2022 with at least 50% relief. 07/21/22 Rt L 4/5 5/ RFA w/50% relief pre-proc pain pre-proc pain 7/10 post proc 08/11 until Jul 2023 08/04/22 Lt L 4/5 5/ RFA w/50% relief pre-proc pain 8/10 post proc pain 4/10 until Jul 2023 01/26/23 Oswaldo SI Inj w/80% relief continued 07/19/2022 Bilateral Sacroiliac Joint injection with 85% relief x 2 hours, and 50% relief continuing today Bilateral SI joint injection 05/18/23 with 85% relief for 2 hours and 50% continued relief. 08/24/2023 Left L4/5, 5/1 Radio Frequency Ablation with 80% relief continuing. Pre procedure pain 8/10. Post procedure pain 2/10 10/12/2023 Right L4/5, 5/1 Radio Frequency Ablation with 65% relief continuing. Pre procedure pain 8/. Post procedure pain 08/11 Thumb: 09/22/22 Left CMC joint injection with 90% relief 01/18/24 First CMC joint injection with 90% relief that continues pre proc 11/11 post proc 06/13 Wrist 04/06/2023 left wrist injection with 50% relief that continues left wrist injection on 07/13/2023 with 80% relief. Pre-procedural pain was reported as 6/10 post proc pain is 2 Neck: 06/08/19 Left C5/6,6/7, 7/ no relief. JOANNE C 12/02 on 07/16/20 w/75% relief. 02/29/2024 C JOANNE with 10% relief reported. Pre proc was 8/ post proc and currently 12/1104/11/24 left C5/6 6/7 MBB with 80% relief x1 week. 06/06/2024 Left C 5/6 6/7 MBB with 80% relief for 3 hours Pre-op pain score: 8/10 Post-op pain score: 2/10 1 hour post: 2/10 2 hour post: 210 4 hour post: 08/11 Shoulder right shoulder injection on 11/30/2023 with at least 80% relief. Neck Pain This is a chronic problem. The current episode started more than 1 year ago. The problem occurs constantly. The problem has been gradually improving (post C RFA). The pain is associated with nothing. The pain is present in the left side and midline. The quality of the pain is described as aching. The pain is at a severity of 2/10. The pain is mild. The symptoms are aggravated by coughing, position, stress, sneezing, swallowing, twisting and bending. The pain is Same all the time. Stiffness is present All day, in the morning and at night. Associated symptoms include weakness (BUE). Pertinent negatives include no chest pain, fever, headaches, leg pain, numbness or photophobia. She has tried acetaminophen, muscle relaxants and home exercises for the symptoms. The treatment provided mild relief. Back Pain This is a chronic problem. The current episode started more than 1 year ago (early ). The problem occurs constantly. The problem has been gradually improving since onset. The pain is present in the sacro-iliac, lumbar spine and gluteal (left). The quality of the pain is described as aching. The pain does not radiate. The pain is at a severity of 3/10. The pain is mild. The pain is The same all the time. Exacerbated by: prolonged standing, walking and sitting ; lying down, stairs, bending, twisting, pushing/pulliing, cough/sneeze, transitioing, cold/heat Stiffness is present All day (varies with activity). Associated symptoms include weakness (BUE). Pertinent negatives include no bladder incontinence, bowel incontinence, chest pain, fever, headaches, leg pain or numbness. Risk factors include sedentary lifestyle. Treatments tried: PT/HEP 2019 w/no relief, NSAIDsx3 (naproxen, motrin, ibuprofen), heat, Flexeril, Neurontin, Elavil & [place] w/ some relief, OTC Arnica cream w/ mod relief. The treatment provided moderate relief. Wrist Pain The pain is present in the left wrist, right wrist, left hand and right hand. This is a chronic problem. The current episode started more than 1 year ago. There has been no history of extremity trauma. The problem occurs constantly. The problem has been gradually worsening. The quality of the pain is described as aching. The pain is at a severity of 7/10. The pain is moderate. Associated symptoms include a limited range of motion. Pertinent negatives include no fever or numbness. The symptoms are aggravated by activity and contact. She has tried NSAIDS, heat and acetaminophen for the symptoms. The treatment provided mild relief. The effect of pain on patient's ADLS: Moderate Impairment. 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 Fall after dizzy spell GERD (gastroesophageal reflux disease) Gout Heart palpitations Hypertension Joint pain Kidney failure Low back pain Lumbar disc disease Neck pain Neuropathy Osteoarthritis Pseudogout of hand bilateral Raynaud's disease Scleroderma ([facility]) Syncope Vertigo Past Surgical History: Procedure Laterality Date CARPAL TUNNEL RELEASE Right EXCISION MASS Left 12/26/2018 Performed by Higinio Okeefe MD at [facility] Right Thumb joint replacement INJECTION BLOCK EPIDURAL CAUDAL STEROID N/A 02/17/2022 Performed by Sky Hemphill MD at [facility] INJECTION BLOCK EPIDURAL CERVICAL/THORACIC: C / joanne N/A 02/29/2024 Performed by Sky Hemphill MD at [facility] INJECTION BLOCK EPIDURAL CERVICAL/THORACIC: C71 JOANNE N/A 07/16/2020 Performed by Sky Hemphill MD at [facility] INJECTION BLOCK NERVE MEDIAL BRANCH: left C 5/6, 6/7 Left 06/06/2024 Performed by Sky Hemphill MD at [facility] INJECTION BLOCK NERVE MEDIAL BRANCH: left C 5/6, 6/7 Left 04/11/2024 Performed by Sky Hemphill MD at [facility] INJECTION BLOCK NERVE MEDIAL BRANCH: left [id number] Left 06/18/2020 Performed by Sky Hemphill MD at [facility] INJECTION BLOCK SACROILIAC JOINT Bilateral 05/18/2023 Performed by Sky Hemphill MD at [facility] INJECTION BLOCK SACROILIAC JOINT Bilateral 01/26/2023 Performed by Sky Hemphill MD at [facility] INJECTION BLOCK SACROILIAC JOINT Right 10/27/2022 Performed by Sky Hemphill MD at [facility] INJECTION BLOCK SACROILIAC JOINT Right 03/17/2022 Performed by Sky Hemphill MD at [facility] INJECTION BLOCK SACROILIAC JOINT Right 08/26/2021 Performed by Sky Hemphill MD at [facility] INJECTION BLOCK SACROILIAC JOINT Right 04/22/2021 Performed by Sky Hemphill MD at [facility] INJECTION BLOCK SACROILIAC JOINT Right 10/15/2020 Performed by Sky Hemphill MD at [facility] INJECTION BLOCK SACROILIAC JOINT: Right 06/16/2022 Performed by Sky Hemphill MD at [facility] IN[facility]CTION BURSA INTERMEDIATE Left Wrist Left 07/13/2023 Performed by Sky Hemphill MD at [facility] INJECTION BURSA INTERMEDIATE Left wrist Left 04/06/2023 Performed by Sky Hemphill MD at [facility] INJECTION BURSA LARGE JOINT: left CMC Left 09/22/2022 Performed by Sky Hemphill MD at [facility] INJECTION BURSA LARGE JOINT: right shoulder Right 11/30/2023 Performed by Sky Hemphill MD at [facility] INJECTION BURSA LARGE JOINT: right shoulder Right 02/16/2023 Performed by Sky Hemphill MD at [facility] BURSA SMALL JOINT Left 1st CMC Left 01/18/2024 Performed by Sky Hemphill MD at [facility] BURSA SMALL JOINT: wrist injection Left 10/07/2018 Performed by Sky Hemphill MD at [facility] CAUDAL EPIDURAL WITH CATHETER, STEROID N/A 2018 Performed by Sky Hemphill MD at [facility] LARGE JOINT BURSA: left ankle Left 10/22/2017 Performed by Sky Hemphill MD at [facility] MEDIAL BRANCH NERVE BLOCK: left L34 45 51 Left 11/18/2018 Performed by Sky Hemphill MD at [facility] SACROILIAC NERVE Bilateral 04/21/2019 Performed by Sky Hemphill MD at [facility] SACROILIAC NERVE Left 11/01/2018 Performed by Sky Hemphill MD at [facility] JOINT REPLACEMENT Bilateral RADIO FREQUENCY ABLATION: left L34 45 [id number] Left 12/27/2018 Performed by Sky Hemphill MD at [facility] RADIO FREQUENCY ABLATION: left L34 [id number] Left 10/31/2019 Performed by Sky Hemphill MD at [facility] RADIO FREQUENCY ABLATION: right L34 45 51 Right 10/17/2019 Performed by Sky Hemphill MD at [facility] RADIO FREQUENCY ABLATION: right SI Right 05/16/2019 Performed by Sky Hemphill MD at [facility] RADIO FREQUENCY ABLATION: right SI rfa Right 01/09/2020 Performed by Sky Hemphill MD at [facility] RADIOFREQUENCY ABLATION SPINAL: left C 5/6, 6/7 Left 07/18/2024 Performed by Sky Hemphill MD at [facility] RADIOFREQUENCY ABLATION SPINAL: left L 4/5 5/ Left 08/04/2022 Performed by Sky Hemphill MD at [facility] RADIOFREQUENCY ABLATION SPINAL: left L 4/5 5/ Left 03/04/2021 Performed by Sky Hemphill MD at [facility] RADIOFREQUENCY ABLATION SPINAL: left L 4/5, 5/1 Left 08/24/2023 Performed by Sky Hemphill MD at [facility] RADIOFREQUENCY ABLATION SPINAL: right L 4/5 5/1 Right 07/21/2022 Performed by Sky Hemphill MD at [facility] RADIOFREQUENCY ABLATION SPINAL: right L 4/5 5/1 Right 05/23/2021 Performed by Sky Hemphill MD at [facility] RADIOFREQUENCY ABLATION SPINAL: right L 4/5, 5/1 Right 10/12/2023 Performed by Sky Hemphill MD at [facility] RADIOFREQUENCY ABLATION SPINAL: right L34 45 51 Right 05/18/2017 Performed by Sky Hemphill MD at [facility] RADIOFREQUENCY ABLATION SPINAL: right SI Right 11/02/2017 Performed by Sky Hemphill MD at [facility] RADIOFREQUENCY ABLATION SPINAL: Right SI Right 03/05/2017 Performed by Sky Hemphill MD at [facility] RELEASE CARPAL TUNNEL Left 12/26/2018 Performed by Higinio Okeefe MD at [facility] REPAIR TENDON FINGER, 5th finger muscle repair Left 11/22/2020 Performed by Rahat Hirsch MD at [facility] TUBAL LIGATION Allergies Allergen Reactions Cinnamon Analogues Swelling Throat swells Coconut Swelling Throat swells Sulfa (Sulfonamide Antibiotics) Anaphylaxis ivp dye ok per pt noted for pain clinic House Dust Other reaction(s): Other: See Comments itching eyes, scratchy throat Oxycodone-Acetaminophen Other reaction(s): nightmares Darvocet A500 [Propoxyphene N-Acetaminophen] Other (See Comments) Nightmares Lactase GI Disturbance Shellfish Containing Products Abdominal Pain Ok for ivp dye per pt Noted for pain clinic Tizanidine (Bulk) Abdominal Pain Tree Nuts Abdominal Pain Family History Problem Relation Age of Onset Cancer Mother Lung cancer Mother Stroke Father Mahan's palsy Sister Rheum arthritis Nephew Graves' disease Niece Social History Socioeconomic History Marital status: Single Spouse name: Not on file Number of children: Not on file Years of education: Not on file Highest education level: Not on file Occupational History Not on file Tobacco Use Smoking status: Never Smokeless tobacco: Never Vaping Use Vaping status: Never Used Substance and Sexual Activity Alcohol use: Not Currently Drug use: No Sexual activity: Defer Partners: Male Other Topics Concern Not on file Social History Narrative Not on file Social Drivers of Health Financial Resource Strain: Medium Risk (02/07/2024) Overall Financial Resource Strain (CARDIA) Difficulty of Paying Living Expenses: Somewhat hard Food Insecurity: No Food Insecurity (08/21/2024) Hunger Screening Food Insecurity - Worry: Never True Food Insecurity - Inability: Never True Transportation Needs: Unmet Transportation Needs (02/07/2024) PRAPARE - Transportation Lack of Transportation (Medical): Yes Lack of Transportation (Non-Medical): Yes Physical Activity: Sufficiently Active (03/19/2023) Received from [facility] Exercise Vital Sign Days of Exercise per Week: 4 days Minutes of Exercise per Session: 90 min Stress: No Stress Concern Present (03/19/2023) Received from [facility] [place] [employer] - Occupational Stress Questionnaire Feeling of Stress : Only a little Social Connections: Socially Isolated (03/19/2023) Received from [facility] Social Connection and Isolation Panel [NHANES] Frequency of Communication with Friends and Family: Once a week Frequency of Social Gatherings with Friends and Family: Never Attends Yarsanism Services: Never Active Member of Clubs or Organizations: No Attends Club or Organization Meetings: Never Marital Status: Interpersonal Safety: Not At Risk (03/19/2023) Received from [facility] Humiliation, Afraid, Rape, and Kick questionnaire Fear of Current or Ex-Partner: No Emotionally Abused: No Physically Abused: No Sexually Abused: No Housing Instability: Low Risk (02/07/2024) Housing Instability Housing Instability: No Review of Systems Constitutional: Negative for fever. Eyes: Negative for photophobia. Cardiovascular: Negative for chest pain. Gastrointestinal: Negative for bowel incontinence. Genitourinary: Negative for bladder incontinence. Musculoskeletal: Positive for back pain and neck pain. Neurological: Positive for weakness (BUE). Negative for numbness and headaches. Vital Signs: BP (!) 145/94 (BP Site: Left Arm, BP Postition: Sitting, BP CUFF SIZE: M (9-13 inches)) Pulse 98 Resp 18 Ht 175.3 cm (5' 9 ) Wt 78.5 kg (173 lb) SpO2 97% BMI 25.55 kg/m Physical Exam: GENERAL - Healthy patient that appears stated age. HEENT - Normocephalic / Atraumatic, Extraoccular movements intact, trachea midline, thyroid within normal limits. CV - pulse regular, Warm extremities with appropriate color of nailbeds. RESP - No obvious wheezing, No Shortness of Breath, No overexertion response to exam maneuvers. COORDINATION - remains intact. PSYCH - Alert and Oriented x4, Attentive and appropriate, constitutionally normal, displays normal mood and affect per situation, answered questions appropriately during examination, demonstrated appropriate attention during discussion, demonstrated appropriate cognitive reasoning and understanding of the medical condition by asking appropriate questions regarding the diagnosis and risks/benefits/alternatives of treatment modalities. No obvious deficits in memory, reasoning, or intellect. Distal Joint Exam - Upper Extremity: SKIN - No rashes or bruising in the area of the patient s pain. EXTREMITIES - Upper extremities are warm, with minimal edema and palpable pulses. Strength is 5/5 all muscle groups of the bilateral upper extremities. There is no obvious atrophy, fasciculations, or spasms. There are no notable sensory deficits in the overlying dermatomal distributions. Examination of the Bilateral wrist reveals tenderness to palpation over the Ulnar and Radial bones distally as well as the carpal bones. Mild swelling is noted without significant erythema. Pain is elicited with flexion and extension of the wrist. Distal Joint Exam - Upper Extremity: SKIN - No rashes or bruising in the area of the patient s pain. EXTREMITIES - Upper extremities are warm, with minimal edema and palpable pulses. Strength is 5/5 all muscle groups of the bilateral upper extremities. There is no obvious atrophy, fasciculations, or spasms. There are no notable sensory deficits in the overlying dermatomal distributions. Examination of the Bilateral First CMC joint reveals tenderness to palpation over the joint space. Mild swelling is noted without significant erythema. Pain is elicited with flexion and extension of the joint. Assessment/Treatment Plan: Rhona was seen today for neck pain, hand pain and back pain. Diagnoses and all orders for this visit: Osteoarthritis of carpometacarpal (CMC) joint of both thumbs - Case request operating room: INJECTION BURSA LARGE JOINT: bilat 1st cmc - X-ray hand right minimum 3 views; Future Encounter for long-term opiate analgesic use Continue [place] 5/325 mg QID PRN Right Hand xray Imaging/Diagnostic Testing - It is felt that additional diagnostic testing is necessary to further evaluate the patients current pain pathology. For this reason, we will order additional imaging/diagnostic testing noted above. It is hopeful that this study will identify a significant pain generator that will be amenable to therapy. It is felt that this modality is necessary due to the severity and chronicity of symptoms and physical exam findings combined with the lack of recent imaging/diagnostic testing of the area. Bilateral First CMC joint Injection - under fluoroscopy with the use of contrast dye (unless contraindicated) It is hopeful that the described procedure will provide symptomatic pain relief. It is felt to be medically necessary noting that the patient has tried and failed more conservative modalities of therapy and this is the next most appropriate step. The procedure was described in detail to the patient as well as the potential benefits of pain reduction alongside risks of the procedure and alternatives. Risks were described as including, but not limited to bleeding, infection, nerve damage, spinal cord injury, paralysis, stroke, dural puncture headache, and medication reaction. The patient expressed understanding regarding the risks and benefits and wishes to proceed. It was explained that CMC joint injections occasionally require a repeat injection before significant relief is noted, but we will determine after each injection if another one is indicated. Depending on the amount and duration of relief obtained from the injection, additional modalities of therapy including medications and physical therapy may need to be utilized alongside or following the injections. If the injection fails to provide relief for a reasonable duration, we may need to consider other options. Follow up 2 weeks after procedure The medications I have prescribed have been reviewed for medication interactions/contraindications and/or for upcoming procedures: continue current medication regimen without any changes. DISCUSSION: Treatment options discussed with patient and all questions answered to patient's satisfaction. Discussed the rules and regulations surrounding prescription of opioids and compliance at length. Failure to follow the rules and regulation will result in tapering and discontinuation of medications if applicable. The patient has been instructed as to the type of medication prescribed along with directions for use. Potential side effects have been discussed, along with risks and benefits of taking this medication. (S)he was instructed as to what to do if (s)he experiences side effects, including when to discontinue the medication. (S)he was advised to call this office in this event. Also discussed at length safety and security of RX and medications. Due to the high risk nature of this patient's pain medication regimen, frequent office visit refill appointments (every 1-3 months) are medically necessary to monitor for an addiction disorder. Prescribed medication that requires intensive monitoring for toxicity [place]. OARRS and most recent UDS were reviewed, discussed and appropriate for medications prescribed. [place] pill count completed at today's office visit. Dose: 5/325 mg 1 tablet 4 times daily as needed for pain Quantity Dispensed 120 Quantity Remaining 68 Fill date on prescription bottle 08/06/2024 appropriate Patient educated to bring medication to every office visit. [place] was refilled at today's office visit. It is noted that the patient did have good response from the previously performed procedure. It is felt that the patient would benefit from an additional procedure of the same nature in that the same symptoms have returned. It is hopeful that this additional injection will provide additional benefit and duration when combined with the previous injection. The spine model was demonstrated and Xray was reviewed and used to explain the condition. Chronic conditions not treated during this visit that affected my overall medical decision making: Comorbidity- Diabetes The patient has a history of diabetes mellitus currently managed with medications. This will need to be considered prior to any procedure that would require the injection of steroid in that the patient may experience a transient increase in glucose as a result. Additional consideration will need to be given to timing the procedure early in the morning in that the patient will need to be fasting prior to the administration of anesthesia. Every effort will be made to perform the procedure as a 1st case due to this condition. And the patient will be instructed to hold their diabetic medications on that morning. If necessary, a blood glucose test can also be performed that morning. The risks/ benefits/ and alternatives will be weighed and explained to the patient prior to any procedure. OARRS: Reviewed. Scribe Statement: IRani CNA, scribed for and in the presence of AMEYA KINCAID who performed the above service. Rani Dominguez CNA 08/21/24 [id number] AMEYA Kincaid 08/26/24 [id number] documented in this encounter [facility] 08-21-2024 Instructions Rani Dominguez CNA - 08/21/2024 9:45 AM EDT Joint Injections / Other These procedure(s) involve injecting steroid medications into a joint or other area explained by your physician. Steroid medicine decreases pain and inflammation. The injection may also contain an anesthetic (numbing medicine) to decrease pain. It may be done to treat conditions such as arthritis, gout, carpal tunnel syndrome and more. The injections may be given in your hip, knee, ankle, shoulder, elbow, wrist, or ankle. How Long Will This Procedure Last? The extent and duration of pain relief may depend on the amount of inflammation and how many areas are involved. Other coexisting factors may be responsible for your pain. You and your physician will discuss expected results of procedure(s). After Your Injection You may experience soreness and tenderness at the area of treatment. This pain may not occur until later today after the numbing medicine wears off. The steroid can take 3-5 days to work and provide noticeable improvement. Activity You may resume normal activity as your comfort level allows. Medications Resume your routine medications after your procedure. You may resume blood thinners per your regular schedule after the procedure. If you received sedation: If you received sedation for your procedure, you may feel sleepy or not yourself for several hours today. For the next 24 hours avoid activities that requires alertness or coordination. This includes: Driving or operating heavy machinery Using power tools Consuming alcohol Do not make important or complex decisions or sign legal documents in the next 24 hours. Other Instructions: If you feel severe pain at the injection site with swelling and redness, increased leg weakness, a fever of 101 or higher, headache (or worsening headache), changes in vision or urinary retention: Please call the office at , or have someone take you to the nearest emergency room. Tell the emergency room staff that you recently had a spine injection. A doctor must evaluate you for bleeding and injection complications. If you lose control over bowel, bladder, or legs: Go to the nearest emergency room. If you are diabetic, the steroids used in this procedure can increase your blood sugar. If your blood sugar is 250mg/dL or higher, contact your primary care physician, or the doctor who manages your diabetes, to discuss how to get it back to normal. documented in this encounter [facility] 08-11-2024 Telephone encounter Note Per [facility] Specialty Pharmacy encounter 08/04/24, medication is set to be delivered on Sunday. [facility] 08-11-2024 Miscellaneous Notes Per [facility] Specialty Pharmacy encounter 08/04/24, medication is set to be delivered on Sunday. documented in this encounter [facility] 08-04-2024 History of Present illness Narrative [facility] Specialty Refill Assessment Medication(s): Enbrel SureClick Patient's current medication list and adherence status to current therapy were reviewed by Specialty Pharmacy clinical pharmacist to identify any new drug interactions or non-compliance to therapy. Therapy continues to be appropriate for disease, patient response, and medical condition. Verification of therapeutic benefit and effectiveness with current therapy was completed. Adverse events, barriers in adherence, and side effects were assessed and addressed if applicable. Will proceed with refill with no changes in therapy - patient progressing towards achieving therapeutic goals based on medication-specific laboratory parameters, disease state markers and outcomes. Office/provider notes have been reviewed prior to dispensing the medication. 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 Med/dose confirmed: Yes Supplies needed: No supplies needed Missed doses: No Estimated days supply on hand: 0 Next cycle/dose due: 08/12/24 Copay amount: 0 Payment confirmed: Yes Delivery method: FedEx Signature required: No Delivery address: [address] [place] [address] Delivery date: 08/08/24 Questions or concerns for the pharmacist?: No Did you have any side effects believed to be related to this medication, that resulted in hospitalization?: No Current Outpatient Medications on File Prior to Visit Medication Sig Etanercept (ENBREL SURECLICK) 50 mg/mL (1 mL) Inject 50mg (1 pen) subcutaneously once a week. Hold if ill or on antibiotics. No LIVE vaccines. predniSONE (DELTASONE) 5 mg tablet TAKE 6 TABLETS BY MOUTH ONCE DAILY FOR 1 DAY; then TAKE 5 TABLETS BY MOUTH ONCE DAILY FOR 1 DAY; then TAKE 4 TABLETS BY MOUTH ONCE DAILY FOR 1 DAY; then TAKE 3 TABLETS BY MOUTH ONCE DAILY FOR 1 DAY; then TAKE 2 TABLETS BY MOUTH ONCE DAILY FOR 1 DAY; then TAKE 1 TABLET BY MOUTH ONCE DAILY FOR 1 DAY; take all doses WITH food and avoid NSAIDS gabapentin (NEURONTIN) 600 mg tablet Take 4caps by mouth per day colchicine 0.6 mg tablet Take 1tab by mouth up to twice a day as tolerated. May cause diarrhea. cyclobenzaprine (FLEXERIL) 10 mg tablet Take 1-2tabs 3times a day amitriptyline (ELAVIL) 25 mg tablet Take 2 tablets by mouth daily at bedtime. lisinopril (ZESTRIL) 40 mg tablet Take 1 tablet by mouth every afternoon. omeprazole (PRILOSEC) 20 mg capsule Take 1 capsule by mouth two times a day. acyclovir (ZOVIRAX) 400 mg tablet take 1 tablet by mouth twice a day glimepiride (AMARYL) 1 mg tablet therapeutic multivitamin (THERA VITAMIN) tablet Take 1 tablet by mouth every morning. Biotin 10,000 mcg cap Take by mouth twice daily. HYDROcodone-acetaminophen (NORCO) 5-325 mg per tablet Take 1 tablet by mouth every 8 hours as needed. No current facility-administered medications on file prior to visit. [facility] RX SPECIALTY CLINICAL ASSESSMENT - INFLAMMATORY CONDITIONS V6: Assessment to use: Refill Date of influenza vaccination reminder: 07/14/2024 Date of most recent vaccination assessment: 07/14/2024 Treatment Plan Information: Enbrel Inject 50mg (1 pen) subcutaneously once a week. Hold if ill or on antibiotics. No LIVE vaccines. Est. Tx Plan Start Date: 07/15/2024 Estimated Start Date Info: No information available Est. Estimated Treatment Duration: Until lack of efficacy Nela Kline CPhT [facility] Special[facility] Pharm[facility] documented in this encounter [facility] 08-04-2024 Note HNO ID: [id number] Author: ?, ?, ? Service: ? Author Type: ? Type: Progress Notes Filed: 08/06/2024 08:25 Note Text: [facility] Specialty Refill Assessment Medication(s): Enbrel SureClick Patient's current medication list and adherence status to current therapy were reviewed by Specialty Pharmacy clinical pharmacist to identify any new drug interactions or non-compliance to therapy. Therapy continues to be appropriate for disease, patient response, and medical condition. Verification of therapeutic benefit and effectiveness with current therapy was completed. Adverse events, barriers in adherence, and side effects were assessed and addressed if applicable. Will proceed with refill with no changes in therapy - patient progressing towards achieving therapeutic goals based on medication-specific laboratory parameters, disease state markers and outcomes. Office/provider notes have been reviewed prior to dispensing the medication. 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 Med/dose confirmed: Yes Supplies needed: No supplies needed Missed doses: No Estimated days supply on hand: 0 Next cycle/dose due: 08/12/24 Copay amount: 0 Payment confirmed: Yes Delivery method: FedEx Signature required: No Delivery address: [address] [place] [address] [address] [place] [address] Delivery date: 08/08/24 Questions or concerns for the pharmacist?: No Did you have any side effects believed to be related to this medication, that resulted in hospitalization?: No Current Outpatient Medications on File Prior to Visit Medication Sig Etanercept (ENBREL SURECLICK) 50 mg/mL (1 mL) Inject 50mg (1 pen) subcutaneously once a week. Hold if ill or on antibiotics. No LIVE vaccines. predniSONE (DELTASONE) 5 mg tablet TAKE 6 TABLETS BY MOUTH ONCE DAILY FOR 1 DAY; then TAKE 5 TABLETS BY MOUTH ONCE DAILY FOR 1 DAY; then TAKE 4 TABLETS BY MOUTH ONCE DAILY FOR 1 DAY; then TAKE 3 TABLETS BY MOUTH ONCE DAILY FOR 1 DAY; then TAKE 2 TABLETS BY MOUTH ONCE DAILY FOR 1 DAY; then TAKE 1 TABLET BY MOUTH ONCE DAILY FOR 1 DAY; take all doses WITH food and avoid NSAIDS gabapentin (NEURONTIN) 600 mg tablet Take 4caps by mouth per day colchicine 0.6 mg tablet Take 1tab by mouth up to twice a day as tolerated. May cause diarrhea. cyclobenzaprine (FLEXERIL) 10 mg tablet Take 1-2tabs 3times a day amitriptyline (ELAVIL) 25 mg tablet Take 2 tablets by mouth daily at bedtime. lisinopril (ZESTRIL) 40 mg tablet Take 1 tablet by mouth every afternoon. omeprazole (PRILOSEC) 20 mg capsule Take 1 capsule by mouth two times a day. acyclovir (ZOVIRAX) 400 mg tablet take 1 tablet by mouth twice a day glimepiride (AMARYL) 1 mg tablet therapeutic multivitamin (THERA VITAMIN) tablet Take 1 tablet by mouth every morning. Biotin 10,000 mcg cap Take by mouth twice daily. HYDROcodone-acetaminophen (NORCO) 5-325 mg per tablet Take 1 tablet by mouth every 8 hours as needed. No current facility-administered medications on file prior to visit. [facility] RX SPECIALTY CLINICAL ASSESSMENT - INFLAMMATORY CONDITIONS V6: Assessment to use: Refill Date of influenza vaccination reminder: 07/14/2024 Date of most recent vaccination assessment: 07/14/2024 Treatment Plan Information: Enbrel Inject 50mg (1 pen) subcutaneously once a week. Hold if ill or on antibiotics. No LIVE vaccines. Est. Tx Plan Start Date: 07/15/2024 Estimated Start Date Info: No information available Est. Estimated Treatment Duration: Until lack of efficacy Nela Kline CPhT [facility] Special[facility] Pharm[facility] 08-01-2024 Miscellaneous Notes Last Office Visit: 06/26/2024 Next Office Visit: 08/21/2024 Last Urine Drug Screen: Lab Results Component Value Date BENZOSCRN Negative 07/03/2023 OARRS appropriate documented in this encounter [facility] 08-01-2024 Telephone encounter Note Last Office Visit: 06/26/2024 Next Office Visit: 08/21/2024 Last Urine Drug Screen: Lab Results Component Value Date BENZOSCRN Negative 07/03/2023 OARRS appropriate [facility] 07-07-2024 Miscellaneous Notes Last Office Visit: 06/26/2024 Next Office Visit: 08/21/2024 Last Urine Drug Screen: Lab Results Component Value Date BENZOSCRN Negative 07/03/2023 OARRS appropriate documented in this encounter [facility] 07-07-2024 Telephone encounter Note Last Office Visit: 06/26/2024 Next Office Visit: 08/21/2024 Last Urine Drug Screen: Lab Results Component Value Date BENZOSCRN Negative 07/03/2023 OARRS appropriate [facility] 07-02-2024 History of Present illness Narrative [facility] received prescription(s) for Enbrel from Dr. Ellis's office. Benefits investigation was conducted, indicating that a prior authorization is required by patient's insurance plan with FEP medicare. Encounter will be updated once prior authorization has been submitted by [facility]. Blessing Meléndez CPhT, Inflammatory/Allergy [facility] [phone] documented in this encounter [facility] 07-02-2024 Note HNO ID: [id number] Author: ?, ?, ? Service: ? Author Type: ? Type: Progress Notes Filed: 07/10/2024 14:51 Note Text: PA was initiated for Enbrel and pending review. Plan Name: [facility] medicare Plan Agent/Alvarez: [id number] Case: [id number] Timeline: Standard Blessing Meléndez CPhT, Inflammatory/Allergy [facility] [phone] [facility] 07-02-2024 Note HNO ID: [id number] Author: CHARITY YUAN RPh Service: ? Author Type: Pharmacist Type: Progress Notes Filed: 07/14/2024 09:46 Note Text: [facility] received prescription(s) for Enbrel from Eugenio Ellis's office. Benefits investigation was conducted, indicating that a prior authorization is required. PA was approved with details listed below: Plan Name: [facility] medicare Plan Agent/Alvarez: [id number] Case: [id number] Approval Dates: 06/04/2024 - 07/10/2025 Pt's copay is $75. Shipment has been arranged, and pt will receive medication(s) on 07/15/2024. Pt has been instructed to follow-up with clinic to confirm start date. A full drug interaction report was conducted, and none found. I reviewed with Rhona Garcia appropriate dose and dosing frequency, administration directions (Inject 50mg (1 pen) subcutaneously once a week. Hold if ill or on antibiotics. No LIVE vaccines.), potential side effects, ability to self-administer and proper storage and handling requirements. S/he expressed understanding of the information we provided today, and received our contact information for the pharmacy if s/he had any other questions. Office/provider notes have been reviewed prior to dispensing the medication. PAST MEDICAL HISTORY Diagnosis Date HTN (hypertension) sees PCP Dr. Garcia, controlled Palpitations Spondyloarthropathy sees [facility] Venous insufficiency sees [facility] Current Outpatient Medications on File Prior to Visit Medication Sig Etanercept (ENBREL SURECLICK) 50 mg/mL (1 mL) Inject 50mg (1 pen) subcutaneously once a week. Hold if ill or on antibiotics. No LIVE vaccines. predniSONE (DELTASONE) 5 mg tablet TAKE 6 TABLETS BY MOUTH ONCE DAILY FOR 1 DAY; then TAKE 5 TABLETS BY MOUTH ONCE DAILY FOR 1 DAY; then TAKE 4 TABLETS BY MOUTH ONCE DAILY FOR 1 DAY; then TAKE 3 TABLETS BY MOUTH ONCE DAILY FOR 1 DAY; then TAKE 2 TABLETS BY MOUTH ONCE DAILY FOR 1 DAY; then TAKE 1 TABLET BY MOUTH ONCE DAILY FOR 1 DAY; take all doses WITH food and avoid NSAIDS gabapentin (NEURONTIN) 600 mg tablet Take 4caps by mouth per day colchicine 0.6 mg tablet Take 1tab by mouth up to twice a day as tolerated. May cause diarrhea. cyclobenzaprine (FLEXERIL) 10 mg tablet Take 1-2tabs 3times a day amitriptyline (ELAVIL) 25 mg tablet Take 2 tablets by mouth daily at bedtime. lisinopril (ZESTRIL) 40 mg tablet Take 1 tablet by mouth every afternoon. omeprazole (PRILOSEC) 20 mg capsule Take 1 capsule by mouth two times a day. acyclovir (ZOVIRAX) 400 mg tablet take 1 tablet by mouth twice a day glimepiride (AMARYL) 1 mg tablet therapeutic multivitamin (THERA VITAMIN) tablet Take 1 tablet by mouth every morning. Biotin 10,000 mcg cap Take by mouth twice daily. HYDROcodone-acetaminophen (NORCO) 5-325 mg per tablet Take 1 tablet by mouth every 8 hours as needed. No current facility-administered medications on file prior to visit. ALLERGIES Allergen Reactions Cinnamon Swelling Shellfish Other: See Comments throat closes Arava [Leflunomide] Intolerance headaches, dizziness, blurred vision, hairloss, joint pain Coconut GI Upset Dairy Aid [Lactase] GI Upset Darvocet A500 [Prop* Other: See Comments Heart palpitations Dust Other: See Comments itching eyes, scratchy throat Sulfasalazine Unknown Tree Nuts Intolerance hives Trees Unknown Problem List Noted Noted By Resolved Resolved By Wrist swelling, left 04/06/2023 Eugenio Ellis MD No Pain in left wrist 04/06/2023 Eugenio Ellis MD No Chronic right shoulder pain 04/06/2023 Eugenio Ellis MD No Joint stiffness of multiple sites 04/06/2023 Eugenio Ellis MD No Pseudogout involving multiple joints 09/07/2022 Eugenio Ellis MD No 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, multiple sites 09/07/2022 Eugenio Ellis MD No Bilateral swelling of feet and ankles 07/24/2019 Eugenio Ellis MD No Vitamin B12 deficiency 07/24/2019 Eugenio Ellis MD No Chronic fatigue 07/24/2019 Eugenio Ellis MD No Elevated serum creatinine 01/18/2018 Eugenio Ellis MD No Raynaud's disease without gangrene 05/10/2017 Eugenio Ellis MD No Long-term use of high-risk medication 09/28/2016 Eugenio Ellis MD No Costochondritis, acute 09/28/2016 Eugenio Ellis MD No Chronic bilateral low back pain without sciatica 12/16/2015 Eugenio Ellis MD No Secondary osteoarthritis of multiple sites 12/16/2015 Eugenio Ellis MD No Chronic sacroiliac joint pain 12/16/2015 Eugenio Ellis MD No Elevated sed rate 06/11/2015 Eugenio Ellis MD No Vitamin D deficiency 06/11/2015 Eugenio Ellis MD No Paresthesia of both hands 06/11/2015 Eugenio Ellis MD No Bilateral carpal tunnel syndrome 06/11/2015 Eugenio Ellis MD No Primary localized osteoarthrosis, pelvic region and thigh 09/18/2013 Lindsey Andre, LOAD MANAGER.VETERINARY ASSISTANT No Palpitations Ana Maria Bennett APRN.YADY No Venous insufficiency Marcelo Dorantes MD No Overview Signed 1 (more content not included)... [facility] 07-02-2024 Note HNO ID: [id number] Author: ?, ?, ? Service: ? Author Type: ? Type: Progress Notes Filed: 07/11/2024 09:32 Note Text: Jomar HOU was approved with details listed below. Plan Name: [employer]EP medicare Plan Agent/Alvarez: [id number] Case: [id number] Approval Dates: 06/04/2024 - 07/10/2025 Prescriptions will now be processed through [facility] for determination of next steps. Priti Mendieta ([facility]) [facility] FAX: [facility] 07-02-2024 Note HNO ID: [id number] Author: ?, ?, ? Service: ? Author Type: ? Type: Progress Notes Filed: 07/02/2024 17:35 Note Text: [facility] received prescription(s) for Enbrel from Dr. Ellis's office. Benefits investigation was conducted, indicating that a prior authorization is required by patient's insurance plan with FEP medicare. Encounter will be updated once prior authorization has been submitted by [facility]. Blessing Meléndez solar installation technician, Inflammatory/Allergy [facility] [phone] [facility] 07-02-2024 Telephone encounter Note Pt has been notified via [employer]. [facility] 07-02-2024 Miscellaneous Notes Pt has been notified via [employer]. Called patient JODIE on VM to call and schedule labs DID NOT read message from provider Wilamr Ovalles July 02, 2024 9:10 AM Please schedule nonfasting labs Thank you. Please call patient. Thank you for the update. Sorry to hear about your discomfort. Agree with stopping cimzia. May retry enbrel if approved by insurance. Office will submit request. Thank you for your patient awaiting response from insurance. Hope you feel better soon! Have a wonderful and Happy New Year! Warm regards, :) documented in this encounter [facility] 07-02-2024 Telephone encounter Note Called patient JODIE on to call and schedule labs DID NOT read message from provider Wilmar Ovalles July 02, 2024 9:10 AM [facility] 07-02-2024 Telephone encounter Note Will await pa approval from [facility]. [facility] 07-02-2024 Miscellaneous Notes Will await pa approval from [facility]. Office Please precert enbrel for ankylosing spondylitis Failed trevor noriega Sent script to [facility] specialty pharmacy. Please Enroll in patient assistance Please Schedule nurse visit for injection instruction if approved/received Thank you. Patient's request for medication is as follows: Requested Prescriptions Signed Prescriptions Disp Refills Etanercept (ENBREL SURECLICK) 50 mg/mL (1 mL) 12 Each 3 Sig: Prefilled 50mg sq injection once a week. Hold if ill or on antibiotics. No LIVE vaccines. Authorizing Provider: EUGENIO ELLIS Prescription(s) as above. Please process accordingly. Eugenio Ellis MD documented in this encounter [facility] 07-01-2024 Telephone encounter Note Office Please precert enbrel for ankylosing spondylitis Failed trevor noriega Sent script to [facility] specialty pharmacy. Please Enroll in patient assistance Please Schedule nurse visit for injection instruction if approved/received Thank you. Patient's request for medication is as follows: Requested Prescriptions Signed Prescriptions Disp Refills Etanercept (ENBREL SURECLICK) 50 mg/mL (1 mL) 12 Each 3 Sig: Prefilled 50mg sq injection once a week. Hold if ill or on antibiotics. No LIVE vaccines. Authorizing Provider: EUGENIO ELLIS Prescription(s) as above. Please process accordingly. Eugenio Ellis MD [facility] 07-01-2024 Telephone encounter Note Please schedule nonfasting labs Thank you. Please call patient. Thank you for the update. Sorry to hear about your discomfort. Agree with stopping cimzia. May retry enbrel if approved by insurance. Office will submit request. Thank you for your patient awaiting response from insurance. Hope you feel better soon! Have a wonderful and Happy New Year! Warm regards, :) [facility] 06-26-2024 History of Present illness Narrative [facility] [address] [place] [address] Patient: Rhona Garcia Sex: female : 1960 Age: 64 y.o. PCP: Parish Dean, LOAD MANAGER-VETERINARY ASSISTANT 06/26/2024 Rhona Garcia is here for a(n) post procedure follow up 06/06/2024 Left C 10/07 11/08 MBB with 80% relief for 3 hours and then back to baseline by end of day.. . Date of onset of pain: chronic , pain has lasted greater than 3 months. Pain scale before treatment: 8/10 Pre-op pain score: 8/10 Post-op pain score: 2/10 1 hour post: 2/10 2 hour post: 2/10 4 hour post: 3/10 Percentage of relief after and duration: see above Pain scale after treatment: 810 today Chief Complaint Patient presents with Back Pain Neck Pain Wrist Pain HPI: PT/HEP 2018 Back: 06/21/18 oswaldo SI joint injection with no relief on left 75% temporary relief on right. Right SI RFA 01/09/2020 with no relief. 10/15/20 Right SI RFA with 75% relief 03/04/21 RFA Left L 4/5, 5/1 with 50% relief currently. 12/27/18 Caudal not helpful. left lumbar RFA w/75% relief Right SI joint injection on 04/22/2021 with 80% relief then went down to 50% relief. 05/23/21 Right RFA L 4/5, 5/1 with 50% relief. 02/17/22 Caudal with no relief reported. 08/26/2021 Right SI injection w/ 50% Right SI joint injection 03/17/2022 50% relief. 10/27/2022 Right Sacroiliac Injection with 75% relief continuing Right SI joint injection on 06/16/2022 with at least 50% relief. 07/21/22 Rt L 4/5 5/1 RFA w/50% relief pre-proc pain pre-proc pain 7/10 post proc 08/11 until Jul 2023 08/04/22 Lt L 4/5 5/ RFA w/50% relief pre-proc pain 8/10 post proc pain 4/10 until Jul 2023 01/26/23 Oswaldo SI Inj w/80% relief continued 07/19/2022 Bilateral Sacroiliac Joint injection with 85% relief x 2 hours, and 50% relief continuing today Bilateral SI joint injection 05/18/23 with 85% relief for 2 hours and 50% continued relief. 08/24/2023 Left L4/5, 5/1 Radio Frequency Ablation with 80% relief continuing. Pre procedure pain 8/10. Post procedure pain 2/10 10/12/2023 Right L4/5, 5/ Radio Frequency Ablation with 65% relief continuing. Pre procedure pain /. Post procedure pain 08/11 Thumb: 09/22/22 Left CMC joint injection with 90% relief 01/18/24 First CMC joint injection with 90% relief that continues pre proc 11/11 post proc 06/13 Wrist 04/06/2023 left wrist injection with 50% relief that continues left wrist injection on 07/13/2023 with 80% relief. Pre-procedural pain was reported as 6/10 post proc pain is 2 Neck: 06/08/19 Left C5/6,6/7, 7/ no relief. JOANNE C / on 07/16/20 w/75% relief. 02/29/2024 C JOANNE with 10% relief reported. Pre proc was 8/10 post proc and currently 12/1104/11/24 left C5/6 6/7 MBB with 80% relief x1 week. 06/06/2024 Left C 5/6 6/7 MBB with 80% relief for 3 hours Pre-op pain score: 8/10 Post-op pain score: 2/10 1 hour post: 2/10 2 hour post: 07/14 4 hour post: 08/11 Shoulder right shoulder injection on 11/30/2023 with at least 80% relief. Neck Pain This is a chronic problem. The current episode started more than 1 year ago. The problem occurs constantly. The problem has been unchanged (temporary relief with injecections). The pain is associated with nothing. The pain is present in the left side and midline. The quality of the pain is described as aching, stabbing, burning and cramping. The pain is at a severity of 8/10 (can get up to 9/10 when turning head or driving). The pain is moderate (to severe). The symptoms are aggravated by coughing, position, stress, sneezing, swallowing, twisting and bending. The pain is Same all the time. Stiffness is present All day, in the morning and at night. Associated symptoms include headaches (daily), numbness (oswaldo hands to fingers), photophobia and weakness (BUE). Pertinent negatives include no chest pain, fever or leg pain. She has tried acetaminophen, muscle relaxants and home exercises for the symptoms. The treatment provided mild relief. Back Pain This is a chronic problem. The current episode started more than 1 year ago (early ). The problem occurs intermittently. The problem has been gradually improving since onset. The pain is present in the sacro-iliac, lumbar spine and gluteal. The quality of the pain is described as aching. Radiates to: hips. The pain is at a severity of 8/10. The pain is moderate. The pain is The same all the time. Exacerbated by: prolonged standing, walking and sitting ; lying down, stairs, bending, twisting, pushing/pulliing, cough/sneeze, transitioing, cold/heat Stiffness is present All day (varies with activity). Associated symptoms include headaches (daily), numbness (oswaldo hands to fingers) and weakness (BUE). Pertinent negatives include no bladder incontinence, bowel incontinence, chest pain, fever or leg pain. Risk factors include sedentary lifestyle. Treatments tried: PT/HEP 2019 w/no relief, NSAIDsx3 (naproxen, motrin, ibuprofen), heat, Flexeril, Neurontin, Elavil & [place] w/ some relief, OTC Arnica cream w/ mod relief. The treatment provided moderate relief. Wrist Pain The pain is present in the left wrist, right wrist, left hand and right hand (left greater than right). This is a chronic problem. The current episode started more than 1 year ago. There has been no history of extremity trauma. The problem occurs constantly. The problem has been gradually worsening. The quality of the pain is described as aching. The pain is at a severity of 9/10. The pain is moderate. Associated symptoms include numbness (oswaldo hands to fingers). Pertinent negatives include no fever. The symptoms are aggravated by activity and contact. She has tried NSAIDS, heat and acetaminophen for the symptoms. The treatment provided mild relief. The effect of pain on patient's ADLS: Moderate Impairment. 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 Fall after dizzy spell GERD (gastroesophageal reflux disease) Gout Heart palpitations Hypertension Joint pain Kidney failure Low back pain Lumbar disc disease Neck pain Neuropathy Osteoarthritis Pseudogout of hand bilateral Raynaud's disease Scleroderma (CMS-HCC) Syncope Vertigo Past Surgical History: Procedure Laterality Date CARPAL TUNNEL RELEASE Right EXCISION MASS Left 12/26/2018 Performed by Higinio Okeefe MD at [facility] Right Thumb joint replacement INJECTION BLOCK EPIDURAL CAUDAL STEROID N/A 02/17/2022 Performed by Sky Hemphill MD at [facility] INJECTION BLOCK EPIDURAL CERVICAL/THORACIC: C / joanne N/A 02/29/2024 Performed by Sky Hemphill MD at [facility] INJECTION BLOCK EPIDURAL CERVICAL/THORACIC: C71 JOANNE N/A 07/16/2020 Performed by Sky Hemphill MD at [facility] INJECTION BLOCK NERVE MEDIAL BRANCH: left C 5/6, 6/7 Left 06/06/2024 Performed by Sky Hemphill MD at [facility] INJECTION BLOCK NERVE MEDIAL BRANCH: left C 5/6, 6/7 Left 04/11/2024 Performed by Sky Hemphill MD at [facility] INJECTION BLOCK NERVE MEDIAL BRANCH: left [id number] Left 06/18/2020 Performed by Sky Hemphill MD at [facility] INJECTION BLOCK SACROILIAC JOINT Bilateral 05/18/2023 Performed by Sky Hemphill MD at [facility] INJECTION BLOCK SACROILIAC JOINT Bilateral 01/26/2023 Performed by Sky Hemphill MD at [facility] INJECTION BLOCK SACROILIAC JOINT Right 10/27/2022 Performed by Sky Hemphill MD at [facility] INJECTION BLOCK SACROILIAC JOINT Right 03/17/2022 Performed by Sky Hemphill MD at [facility] INJECTION BLOCK SACROILIAC JOINT Right 08/26/2021 Performed by Sky Hemphill MD at [facility] INJECTION BLOCK SACROILIAC JOINT Right 04/22/2021 Performed by Sky Hemphill MD at [facility] INJECTION BLOCK SACROILIAC JOINT Right 10/15/2020 Performed by Sky Hemphill MD at [facility] INJECTION BLOCK SACROILIAC JOINT: Right 06/16/2022 Performed by Sky Hemphill MD at [facility] INJECTION BURSA INTERMEDIATE Left Wrist Left 07/13/2023 Performed by Sky Hemphill MD at [facility] INJECTION BURSA INTERMEDIATE Left wrist Left 04/06/2023 Performed by Sky Hemphill MD at [facility] INJECTION BURSA LARGE JOINT: left CMC Left 09/22/2022 Performed by Sky Hemphill MD at [facility] INJECTION BURSA LARGE JOINT: right shoulder Right 11/30/2023 Performed by Sky Hemphill MD at [facility] INJECTION BURSA LARGE JOINT: right shoulder Right 02/16/2023 Performed by Sky Hemphill MD at [facility] INJECTION BURSA SMALL JOINT Left 1st CMC Left 01/18/2024 Performed by Sky Hemphill MD at [facility] INJECTION BURSA SMALL JOINT: wrist injection Left 10/07/2018 Performed by Sky Hemphill MD at [facility] CAUDAL EPIDURAL WITH CATHETER, STEROID N/A 2018 Performed by Sky Hemphill MD at [facility] LARGE JOINT BURSA: left ankle Left 10/22/2017 Performed by Sky Hemphill MD at [facility] MEDIAL BRANCH NERVE BLOCK: left L34 45 51 Left 11/18/2018 Performed by Sky Hemphill MD at [facility] INJECTION SACROILIAC NERVE Bilateral 04/21/2019 Performed by Sky Hemphill MD at [facility] INJECTION SACROILIAC NERVE Left 11/01/2018 Performed by Sky Hemphill MD at [facility] JOINT REPLACEMENT Bilateral RADIO FREQUENCY ABLATION: left L34 45 [id number] Left 12/27/2018 Performed by Sky Hemphill MD at [facility] RADIO FREQUENCY ABLATION: left L34 [id number] Left 10/31/2019 Performed by Sky Hemphill MD at [facility] RADIO FREQUENCY ABLATION: right L34 45 51 Right 10/17/2019 Performed by Sky Hemphill MD at [facility] RADIO FREQUENCY ABLATION: right SI Right 05/16/2019 Performed by Sky Hemphill MD at [facility] RADIO FREQUENCY ABLATION: right SI rfa Right 01/09/2020 Performed by Sky Hemphill MD at [facility] RADIOFREQUENCY ABLATION SPINAL: left L 4/5 5/ Left 08/04/2022 Performed by Sky Hemphill MD at [facility] RADIOFREQUENCY ABLATION SPINAL: left L 4/5 5/ Left 03/04/2021 Performed by Sky Hemphill MD at [facility] RADIOFREQUENCY ABLATION SPINAL: left L 4/5, 5/1 Left 08/24/2023 Performed by Sky Hemphill MD at [facility] RADIOFREQUENCY ABLATION SPINAL: right L 4/5 5/1 Right 07/21/2022 Performed by Sky Hemphill MD at [facility] RADIOFREQUENCY ABLATION SPINAL: right L 4/5 5/1 Right 05/23/2021 Performed by Sky Hemphill MD at [facility] RADIOFREQUENCY ABLATION SPINAL: right L 4/5, 5/1 Right 10/12/2023 Performed by Sky Hemphill MD at [facility] RADIOFREQUENCY ABLATION SPINAL: right L34 45 51 Right 05/18/2017 Performed by Sky Hemphill MD at [facility] RADIOFREQUENCY ABLATION SPINAL: right SI Right 11/02/2017 Performed by Sky Hemphill MD at [facility] RADIOFREQUENCY ABLATION SPINAL: Right SI Right 03/05/2017 Performed by Sky Hemphill MD at [facility] RELEASE CARPAL TUNNEL Left 12/26/2018 Performed by Higinio Okeefe MD at [facility] REPAIR TENDON FINGER, 5th finger muscle repair Left 11/22/2020 Performed by Rahat Hirsch MD at [facility] TUBAL LIGATION Allergies Allergen Reactions Cinnamon Analogues Swelling Throat swells Coconut Swelling Throat swells Sulfa (Sulfonamide Antibiotics) Anaphylaxis ivp dye ok per pt noted for pain clinic House Dust Other reaction(s): Other: See Comments itching eyes, scratchy throat Oxycodone-Acetaminophen Other reaction(s): nightmares Darvocet A500 [Propoxyphene N-Acetaminophen] Other (See Comments) Nightmares Lactase GI Disturbance Shellfish Containing Products Abdominal Pain Ok for ivp dye per pt Noted for pain clinic Tizanidine (Bulk) Abdominal Pain Tree Nuts Abdominal Pain Family History Problem Relation Age of Onset Cancer Mother Lung cancer Mother Stroke Father Mahan's palsy Sister Rheum arthritis Nephew Graves' disease Niece Social History Socioeconomic History Marital status: Single Spouse name: Not on file Number of children: Not on file Years of education: Not on file Highest education level: Not on file Occupational History Not on file Tobacco Use Smoking status: Never Smokeless tobacco: Never Vaping Use Vaping status: Never Used Substance and Sexual Activity Alcohol use: No Alcohol/week: 0.0 standard drinks of alcohol Comment: stopped 6-7 years ago Drug use: No Sexual activity: Defer Partners: Male Other Topics Concern Not on file Social History Narrative Not on file Social Drivers of Health Financial Resource Strain: Medium Risk (02/07/2024) Overall Financial Resource Strain (CARDIA) Difficulty of Paying Living Expenses: Somewhat hard Food Insecurity: No Food Insecurity (06/26/2024) Hunger Screening Food Insecurity - Worry: Never True Food Insecurity - Inability: Never True Transportation Needs: Unmet Transportation Needs (02/07/2024) PRAPARE - Transportation Lack of Transportation (Medical): Yes Lack of Transportation (Non-Medical): Yes Physical Activity: Sufficiently Active (03/19/2023) Received from [facility] Exercise Vital Sign Days of Exercise per Week: 4 days Minutes of Exercise per Session: 90 min Stress: No Stress Concern Present (03/19/2023) Received from [facility] - Occupational Stress Questionnaire Feeling of Stress : Only a little Social Connections: Socially Isolated (03/19/2023) Received from [facility] Social Connection and Isolation Panel [NHANES] Frequency of Communication with Friends and Family: Once a week Frequency of Social Gatherings with Friends and Family: Never Attends Yarsanism Services: Never Active Member of Clubs or Organizations: No Attends Club or Organization Meetings: Never Marital Status: Interpersonal Safety: Not At Risk (03/19/2023) Received from [facility] Humiliation, Afraid, Rape, and Kick questionnaire Fear of Current or Ex-Partner: No Emotionally Abused: No Physically Abused: No Sexually Abused: No Housing Instability: Low Risk (02/07/2024) Housing Instability Housing Instability: No Review of Systems Constitutional: Negative. Negative for chills, fatigue and fever. HENT: Negative. Negative for congestion. Eyes: Positive for photophobia. Respiratory: Negative. Negative for cough and shortness of breath. Cardiovascular: Negative. Negative for chest pain. Gastrointestinal: Negative. Negative for bowel incontinence. Endocrine: Negative. Genitourinary: Negative. Negative for bladder incontinence. Musculoskeletal: Positive for back pain and neck pain. Negative for gait problem and neck stiffness. Skin: Negative. Negative for rash and wound. Allergic/Immunologic: Negative. Neurological: Positive for weakness (BUE), numbness (oswaldo hands to fingers) and headaches (daily). Hematological: Negative. Does not bruise/bleed easily. Psychiatric/Behavioral: Negative. Negative for suicidal ideas. Vital Signs: BP 176/88 Pulse 100 Resp 18 Ht 175.3 cm (5' 9 ) Wt 79.4 kg (175 lb) SpO2 96% BMI 25.84 kg/m Physical Exam: GENERAL - Healthy patient that appears stated age. HEENT - Normocephalic / Atraumatic, Extraoccular movements intact, trachea midline, thyroid within normal limits. CV - pulse regular, Warm extremities with appropriate color of nailbeds. RESP - No obvious wheezing, No Shortness of Breath, No overexertion response to exam maneuvers. COORDINATION - remains intact. PSYCH - Alert and Oriented x4, Attentive and appropriate, constitutionally normal, displays normal mood and affect per situation, answered questions appropriately during examination, demonstrated appropriate attention during discussion, demonstrated appropriate cognitive reasoning and understanding of the medical condition by asking appropriate questions regarding the diagnosis and risks/benefits/alternatives of treatment modalities. No obvious deficits in memory, reasoning, or intellect. Cervical: SKIN - No rashes or bruising in the area of the patient s pain. LYMPH NODES - demonstrate no obvious enlargement. EXTREMITIES - Upper extremities are warm, with minimal edema and palpable pulses. Tenderness to palpation noted in the left cervical spine and paraspinal musculature. Pain is elicited with flexion, extension, and lateral rotation of the left cervical spine. Range of motion is diminished with these motions due to pain. Facet palpation is noted to be painful and concordant with the patient s normal pain complaints. STRENGTH - noted to be 5 out of 5 all muscle groups bilateral upper extremities including muscles involving shoulder flexion and abduction, elbow flexion and extension, as well as wrist flexion and extension and intrinsic muscles of the hand. No notable atrophy, fasciculations or spasm. SENSORY - No notable sensory deficits in the bilateral upper extremities to touch or pinprick in all dermatomal distributions. Spurlings sign is negative. Assessment/Treatment Plan: Rhona was seen today for back pain, neck pain and wrist pain. Diagnoses and all orders for this visit: Cervical spondylosis without myelopathy - Case request operating room: RADIOFREQUENCY ABLATION SPINAL: left C56 67 Lumbosacral spondylosis without myelopathy - HYDROcodone-acetaminophen (NORCO) 5-325 mg per tablet; Take 1 tablet by mouth 4 (four) times a day as needed for pain. 07/06/2024 fill date Max Daily Amount: 4 tablets Encounter for long-term opiate analgesic use Refill [place] 5/325 mg QID PRN Left C5/6, 6/7 Facet Radiofrequency Ablation - under fluoroscopy It is hopeful that the described procedure will provide symptomatic pain relief. It is felt to be medically necessary noting that the patient has tried and failed more conservative modalities of therapy and this is the next most appropriate step. The procedure was described in detail to the patient as well as the potential benefits of pain reduction alongside risks of the procedure and alternatives. Risks were described as including, but not limited to bleeding, infection, nerve damage, spinal cord injury, paralysis, stroke, dural puncture headache, and medication reaction. The patient expressed understanding regarding the risks and benefits and wishes to proceed. The patient has undergone diagnostic injections targeting the above mentioned facet joints. There was significant improvement in the patient s pain and functionality for the duration of the local anesthetic (approximately 2 hours) with return of the original symptoms after that time. For this reason, it is felt that the patient is a good candidate to undergo thermal Radio Frequency Lesioning of the Medial Branch Nerves at 80 degrees celsius for 90 seconds. This will effectively denervate the arthritic facet joints previously targeted with the diagnostic injection. It is noted that the procedure often requires 3-4 weeks to provide benefit, but the benefit usually lasts for approximately 1 year and can then be repeated if necessary. Patients undergoing this procedure often have mild post-procedural pain for 3-4 days which is generally relieved with application of heat and over the counter pain relievers. Follow up 4 weeks after procedure The medications I have prescribed have been reviewed for medication interactions/contraindications and/or for upcoming procedures: continue current medication regimen without any changes. DISCUSSION: Treatment options discussed with patient and all questions answered to patient's satisfaction. Discussed the rules and regulations surrounding prescription of opioids and compliance at length. Failure to follow the rules and regulation will result in tapering and discontinuation of medications if applicable. The patient has been instructed as to the type of medication prescribed along with directions for use. Potential side effects have been discussed, along with risks and benefits of taking this medication. (S)he was instructed as to what to do if (s)he experiences side effects, including when to discontinue the medication. (S)he was advised to call this office in this event. Also discussed at length safety and security of RX and medications. Due to the high risk nature of this patient's pain medication regimen, frequent office visit refill appointments (every 1-3 months) are medically necessary to monitor for an addiction disorder. Prescribed medication that requires intensive monitoring for toxicity [place]. OARRS and most recent UDS were reviewed, discussed and appropriate for medications prescribed. [place] pill count completed at today's office visit. Dose: 5/325mg Quantity Dispensed 120 Quantity Remaining 46 Fill date on prescription bottle 06/06/2024 appropriate Patient educated to bring medication to every office visit. [place] was refilled at today's office visit. The spine model was demonstrated and MRI was reviewed and used to explain the condition. Chronic conditions not treated during this visit that affected my overall medical decision making: Comorbidity- Diabetes The patient has a history of diabetes mellitus currently managed with medications. This will need to be considered prior to any procedure that would require the injection of steroid in that the patient may experience a transient increase in glucose as a result. Additional consideration will need to be given to timing the procedure early in the morning in that the patient will need to be fasting prior to the administration of anesthesia. Every effort will be made to perform the procedure as a 1st case due to this condition. And the patient will be instructed to hold their diabetic medications on that morning. If necessary, a blood glucose test can also be performed that morning. The risks/ benefits/ and alternatives will be weighed and explained to the patient prior to any procedure. OARRS: Reviewed. Scribe Statement: Rani Kim CNA, scribed for and in the presence of AMEYA KINCAID who performed the above service. Provider Statement: RAFAELA Kim PA, personally performed the services described in the documentation, as scribed by Rani Dominguez CNA in my presence, and it is both accurate and complete. Rani Dominguez CNA 06/26/24 1002 Rani Dominguez CNA 06/26/24 1017 AMEYA Kincaid 06/26/24 1150 documented in this encounter [facility] 06-26-2024 Instructions KERMIT LozanoA - 06/26/2024 9:15 AM EST Radiofrequency Ablation (RFA) Radiofrequency ablation (or RFA) is a procedure used to reduce pain. An electrical current produced by a radio wave is used to heat up a small area of nerve tissue, thereby decreasing pain signals from that specific area. Which Conditions Are Treated With Radiofrequency Ablation? RFA can be used to help patients with chronic (long-lasting) back and neck pain and pain related to the degeneration of joints from arthritis. How Long Does Pain Relief from Radiofrequency Ablation Last? The degree of pain relief varies, depending on the cause and location of the pain. Pain relief from RFA can last from six to 12 months and in some cases, relief can last for years. More than 70% of patients treated with RFA experience pain relief. Is Radiofrequency Ablation Safe? RFA has proven to be a safe and effective way to treat some forms of pain. It also is generally well-tolerated, with very few associated complications. There is a slight risk of infection and bleeding at the insertion site. Your doctor can advise you about your particular risk. Can I Resume My Normal Activities After Radiofrequency Ablation? You will have a few restrictions immediately following radiofrequency ablation: Do not drive or operate machinery for at least 24 hours after the procedure. You may resume your normal diet and prescribed medications (including blood thinners) when you get home. Do not engage in any strenuous activity for the first 24 hours after the procedure. You may remove any bandages in the evening before going to bed. You may experience the following effects after RFA: Leg numbness: If you have any leg numbness, walk only with assistance. This should only last a few hours and is due to the local anesthesia given during the procedure. Mild back discomfort: This may occur when the local anesthetic wears off and usually lasts two or three days. Apply heat to the area the day of the procedure and the day after the procedure. You may also use your usual pain medications and NSAID medications such as ibuprofen, naproxen, Aleve, Motrin, etc. if you are able. Expectations: Results will be gradual. It may take 3-4 weeks for full relief. If you feel severe pain at the injection site with swelling and redness, increased leg weakness, a fever of 101 or higher, headache (or worsening headache), changes in vision or urinary retention: Please call the office at , or have someone take you to the nearest emergency room. Tell the emergency room staff that you just had RFA. A doctor must evaluate you for bleeding and injection complications. If you lose control over bowel, bladder, or legs: Go to the nearest emergency room. If you are diabetic, the steroids used in this procedure can increase your blood sugar. If your blood sugar is 250mg/dL or higher, contact your primary care physician, or the doctor who manages your diabetes, to discuss how to get it back to normal. documented in this encounter [facility] 06-12-2024 Note XR WRIST LT MIN 3 VW S CLINICAL INFORMATION: Left wrist pain TECHNIQUE/PROCEDURE: 4 views of the left wrist COMPARISON: 09/05/2018 FINDINGS: Progression of osteoarthrosis with more conspicuous chondrocalcinosis. No acute fracture or periosteal reaction. No osseous erosions. Osteopenia. IMPRESSION: Advanced osteoarthrosis with chondrocalcinosis. No acute osseous abnormality given the limitations of diffuse osteopenia. Finalized by Omar Centeno MD on 06/12/2024 3:16 PM [facility] 06-05-2024 Miscellaneous Notes Last OV: 05/08/2024 Next OV: 06/26/2024 OARRS appropriate: yes Last UDS: 03/20/2024 Pharmacy: Azra Garrett documented in this encounter [facility] 06-05-2024 Telephone encounter Note Last OV: 05/08/2024 Next OV: 06/26/2024 OARRS appropriate: yes Last UDS: 03/20/2024 Pharmacy: Azra Garrtet [facility] 05-13-2024 Telephone encounter Note Notify patient medication sent as requested Thank you. Patient's request for medication is as follows: Requested Prescriptions Pending Prescriptions Disp Refills predniSONE (DELTASONE) 5 mg tablet [Pharmacy Med Name: prednisone 5 mg tablet] 21 tablet 3 Sig: TAKE 6 TABLETS BY MOUTH ONCE DAILY FOR 1 DAY; then TAKE 5 TABLETS BY MOUTH ONCE DAILY FOR 1 DAY; then TAKE 4 TABLETS BY MOUTH ONCE DAILY FOR 1 DAY; then TAKE 3 TABLETS BY MOUTH ONCE DAILY FOR 1 DAY; then TAKE 2 TABLETS BY MOUTH ONCE DAILY FOR 1 DAY; then TAKE 1 TABLET BY MOUTH ONCE DAILY FOR 1 DAY; take all doses WITH food and avoid NSAIDS Prescription(s) as above. Please process accordingly. Eugenio Ellis MD [facility] 05-13-2024 Miscellaneous Notes Notify patient medication sent as requested Thank you. Patient's request for medication is as follows: Requested Prescriptions Pending Prescriptions Disp Refills predniSONE (DELTASONE) 5 mg tablet [Pharmacy Med Name: prednisone 5 mg tablet] 21 tablet 3 Sig: TAKE 6 TABLETS BY MOUTH ONCE DAILY FOR 1 DAY; then TAKE 5 TABLETS BY MOUTH ONCE DAILY FOR 1 DAY; then TAKE 4 TABLETS BY MOUTH ONCE DAILY FOR 1 DAY; then TAKE 3 TABLETS BY MOUTH ONCE DAILY FOR 1 DAY; then TAKE 2 TABLETS BY MOUTH ONCE DAILY FOR 1 DAY; then TAKE 1 TABLET BY MOUTH ONCE DAILY FOR 1 DAY; take all doses WITH food and avoid NSAIDS Prescription(s) as above. Please process accordingly. Eugenio Ellis MD Images from the original note were not included. Most recent Rheumatology visit: 03/29/2024 (with Eugenio Ellis) Last Bone Density on file: None on file Rheumatology Care Team: None on file Recent Office Visits - This Specialty 03/29/2024 Ankylosing spondylitis of multiple sites in spine (HCC) Rheumatology Eugenio Ellis MD 01/17/2024 Ankylosing spondylitis of multiple sites in spine ([facility]) Rheumatology Eugenio Ellis MD 04/06/2023 Ankylosing spondylitis of multiple sites in spine ([facility]) Rheumatology Eugenio Ellis MD Upcoming Rheumatology Appointments - Next 365 Days Visit Type Date Time Department [facility] 12/01/2024 1:20 PM [facility] CBC: Latest Ref Rng & Units 07/14/2020 01/19/2021 CBC WBC 3.70 - 11.00 k/uL 6.81 4.43 Hemoglobin 11.5 - 15.5 g/dL 12.8 12.0 Hematocrit 36.0 - 46.0 % 39.5 38.0 Platelet Count 150 - 400 k/uL 296 237 Vitamin D: None on file in the last 6 months LFT: Latest Ref Rng & Units 07/14/2020 01/19/2021 CMP Sodium 136 - 144 mmol/L 135 138 Potassium 3.7 - 5.1 mmol/L 4.5 5.1 Chloride 97 - 105 mmol/L 98 103 CO2 22 - 30 mmol/L 27 26 Glucose 74 - 99 mg/dL 170 172 BUN 7 - 21 mg/dL 11 18 Creatinine 0.58 - 0.96 mg/dL 0.81 0.91 Calcium 8.5 - 10.2 mg/dL 9.4 9.4 AST 13 - 35 U/L 20 14 ALT 7 - 38 U/L 33 13 Alkaline Phosphatase 34 - 123 U/L 94 94 Hepatic Function: Creatinine: None on file in the last 6 months ESR/CRP: None on file in the last 6 months Uric Acid: None on file in the last 6 months Open Standing (Multiple Instance) Lab Orders None Open Future (Single Instance) Lab Orders Expected Expires Ordered COMP METABOLIC PANEL [SQCMP] 10/07/23 07/09/24 07/09/23 Auth. provider: Eugenio Ellis MD Assoc. diagnoses: Elevated LFTs CBC [SQCBC] 10/07/23 07/09/24 07/09/23 Auth. provider: Eugenio Ellis MD Assoc. diagnoses: Anemia of chronic disease SED RATE WESTERGREN [SQWSR] 10/07/23 07/09/24 07/09/23 Auth. provider: Eugenio Ellis MD Assoc. diagnoses: Elevated sed rate, Elevated C-reactive protein (CRP) C-REACTIVE PROTEIN (CRP) [SQCRP] 10/07/23 07/09/24 07/09/23 Auth. provider: Eugenio Ellis MD Assoc. diagnoses: Elevated sed rate, Elevated C-reactive protein (CRP) VITAMIN D 25 HYDROXY [SQVITD] 10/07/23 07/09/24 07/09/23 Auth. provider: Eugenio Ellis MD Assoc. diagnoses: Vitamin D deficiency VITAMIN B12 BLOOD [SQB12] 10/07/23 07/09/24 07/09/23 Auth. provider: Eugenio Ellis MD Assoc. diagnoses: Vitamin B12 deficiency BLOOD TB SCREEN [SQINFTBP] 10/07/23 07/09/24 07/09/23 Auth. provider: Eugenio Ellis MD Assoc. diagnoses: Screening-pulmonary TB VITAMIN B12 [SQB12] 03/06/24 06/05/24 03/06/24 Auth. provider: Eugenio Ellis MD Assoc. diagnoses: Vitamin B12 deficiency VITAMIN D 25 HYDROXY [SQVITD] 03/06/24 06/05/24 03/06/24 Auth. provider: Eugenio Ellis MD Assoc. diagnoses: Vitamin D deficiency C-REACTIVE PROTEIN [SQCRP] 03/06/24 06/05/24 03/06/24 Auth. provider: Eugenio Ellis MD Assoc. diagnoses: Elevated sed rate, Pseudogout involving multiple joints, Long-term use of high-risk medication SEDIMENTATION RATE, WESTERGREN [SQWSR] 03/06/24 06/05/24 03/06/24 Auth. provider: Eugenio Ellis MD Assoc. diagnoses: Elevated sed rate, Pseudogout involving multiple joints, Long-term use of high-risk medication documented in this encounter [facility] 05-13-2024 Miscellaneous Notes Auth was denied. Insurance states a pre-op pain score of 7 and a post-op pain score of 3. They states this is not 80% relief. How do you want to proceed? documented in this encounter [facility] 05-13-2024 Telephone encounter Note Auth was denied. Insurance states a pre-op pain score of 7 and a post-op pain score of 3. They states this is not 80% relief. How do you want to proceed? [facility] 05-13-2024 Telephone encounter Note Images from the original note were not included. Most recent Rheumatology visit: 03/29/2024 (with Eugenio Ellis) Last Bone Density on file: None on file Rheumatology Care Team: None on file Recent Office Visits - This Specialty 03/29/2024 Ankylosing spondylitis of multiple sites in spine ([facility]) Rheumatology Eugenio Ellis MD 01/17/2024 Ankylosing spondylitis of multiple sites in spine ([facility]) Rheumatology Eugenio Ellis MD 04/06/2023 Ankylosing spondylitis of multiple sites in spine ([facility]) Rheumatology Eugenio Ellis MD Upcoming Rheumatology Appointments - Next 365 Days Visit Type Date Time Department [facility] 12/01/2024 1:20 PM [facility] CBC: Latest Ref Rng & Units 07/14/2020 01/19/2021 CBC WBC 3.70 - 11.00 k/uL 6.81 4.43 Hemoglobin 11.5 - 15.5 g/dL 12.8 12.0 Hematocrit 36.0 - 46.0 % 39.5 38.0 Platelet Count 150 - 400 k/uL 296 237 Vitamin D: None on file in the last 6 months LFT: Latest Ref Rng & Units 07/14/2020 01/19/2021 CMP Sodium 136 - 144 mmol/L 135 138 Potassium 3.7 - 5.1 mmol/L 4.5 5.1 Chloride 97 - 105 mmol/L 98 103 CO2 22 - 30 mmol/L 27 26 Glucose 74 - 99 mg/dL 170 172 BUN 7 - 21 mg/dL 11 18 Creatinine 0.58 - 0.96 mg/dL 0.81 0.91 Calcium 8.5 - 10.2 mg/dL 9.4 9.4 AST 13 - 35 U/L 20 14 ALT 7 - 38 U/L 33 13 Alkaline Phosphatase 34 - 123 U/L 94 94 Hepatic Function: Creatinine: None on file in the last 6 months ESR/CRP: None on file in the last 6 months Uric Acid: None on file in the last 6 months Open Standing (Multiple Instance) Lab Orders None Open Future (Single Instance) Lab Orders Expected Expires Ordered COMP METABOLIC PANEL [SQCMP] 10/07/23 07/09/24 07/09/23 Auth. provider: Eugenio Ellis MD Assoc. diagnoses: Elevated LFTs CBC [SQCBC] 10/07/23 07/09/24 07/09/23 Auth. provider: Eugenio Ellis MD Assoc. diagnoses: Anemia of chronic disease SED RATE WESTERGREN [SQWSR] 10/07/23 07/09/24 07/09/23 Auth. provider: Eugenio Ellis MD Assoc. diagnoses: Elevated sed rate, Elevated C-reactive protein (CRP) C-REACTIVE PROTEIN (CRP) [SQCRP] 10/07/23 07/09/24 07/09/23 Auth. provider: Eugenio Ellis MD Assoc. diagnoses: Elevated sed rate, Elevated C-reactive protein (CRP) VITAMIN D 25 HYDROXY [SQVITD] 10/07/23 07/09/24 07/09/23 Auth. provider: Eugenio Ellis MD Assoc. diagnoses: Vitamin D deficiency VITAMIN B12 BLOOD [SQB12] 10/07/23 07/09/24 07/09/23 Auth. provider: Eugenio Ellis MD Assoc. diagnoses: Vitamin B12 deficiency BLOOD TB SCREEN [SQINFTBP] 10/07/23 07/09/24 07/09/23 Auth. provider: Eugenio Ellis MD Assoc. diagnoses: Screening-pulmonary TB VITAMIN B12 [SQB12] 03/06/24 06/05/24 03/06/24 Auth. provider: Eugenio Ellis MD Assoc. diagnoses: Vitamin B12 deficiency VITAMIN D 25 HYDROXY [SQVITD] 03/06/24 06/05/24 03/06/24 Auth. provider: Eugenio Ellis MD Assoc. diagnoses: Vitamin D deficiency C-REACTIVE PROTEIN [SQCRP] 03/06/24 06/05/24 03/06/24 Auth. provider: Eugenio Ellis MD Assoc. diagnoses: Elevated sed rate, Pseudogout involving multiple joints, Long-term use of high-risk medication SEDIMENTATION RATE, WESTERGREN [SQWSR] 03/06/24 06/05/24 03/06/24 Auth. provider: Eugenio Ellis MD Assoc. diagnoses: Elevated sed rate, Pseudogout involving multiple joints, Long-term use of high-risk medication [facility] 05-08-2024 History of Present illness Narrative [facility] [address] [place] [address] Patient: Rhona Garcia Sex: female : 1960 Age: 64 y.o. PCP: Parish Dean APRN-VETERINARY ASSISTANT 05/08/2024 Rhona Garcia is here for a(n) post procedure follow up post left C5/6 6/7 Medial Branch Block with 80% relief for a week followed by 60-70% relief that continues today. Patient states her pain is mainly on the left side of her neck and no longer has shooting pains down the left arm of back of the neck up to head. Currently rates pain a 5/10 in the neck and back is a 4/10. Date of onset of pain: pain has lasted greater than 3 months. Pain scale before treatment: 7/10 Pre-op pain score: 7/10 Post-op pain score: 3/10 2 hour post-op pain score: 5/10 4 hour post-op pain score: 4/10 Percentage of relief after and duration: 80% relief followed by 60-70% relief that continues today Pain scale after treatment: 5/10 Chief Complaint Patient presents with Neck Pain Back Pain HPI: PT/HEP 2018 Back: 06/21/18 oswaldo SI joint injection with no relief on left 75% temporary relief on right. Right SI RFA 01/09/2020 with no relief. 10/15/20 Right SI RFA with 75% relief 03/04/21 RFA Left L /, 5/1 with 50% relief currently. 12/27/18 Caudal not helpful. left lumbar RFA w/75% relief Right SI joint injection on 04/22/2021 with 80% relief then went down to 50% relief. 05/23/21 Right RFA L 4/5, 5/1 with 50% relief. 02/17/22 Caudal with no relief reported. 08/26/2021 Right SI injection w/ 50% Right SI joint injection 03/17/2022 50% relief. 10/27/2022 Right Sacroiliac Injection with 75% relief continuing Right SI joint injection on 06/16/2022 with at least 50% relief. 07/21/22 Rt L 4/5 5/ RFA w/50% relief pre-proc pain pre-proc pain 7/10 post proc 08/11 until Jul 2023 08/04/22 Lt L 4/5 5/ RFA w/50% relief pre-proc pain 8/10 post proc pain 4/10 until Jul 2023 01/26/23 Oswaldo SI Inj w/80% relief continued 07/19/2022 Bilateral Sacroiliac Joint injection with 85% relief x 2 hours, and 50% relief continuing today Bilateral SI joint injection 05/18/23 with 85% relief for 2 hours and 50% continued relief. 08/24/2023 Left L4/5, 5/1 Radio Frequency Ablation with 80% relief continuing. Pre procedure pain 8/10. Post procedure pain 2/10 10/12/2023 Right L4/5, 5/1 Radio Frequency Ablation with 65% relief continuing. Pre procedure pain 8/10. Post procedure pain 3/10 Thumb: 09/22/22 Left CMC joint injection with 90% relief 01/18/24 First CMC joint injection with 90% relief that continues pre proc 6/10 post proc 1/10 Wrist 04/06/2023 left wrist injection with 50% relief that continues left wrist injection on 07/13/2023 with 80% relief. Pre-procedural pain was reported as 6/10 post proc pain is 2/10 Neck: 06/08/19 Left C5/6,6/7, 7/ no relief. JOANNE C 7/ on 07/16/20 w/75% relief. 02/29/2024 C JOANNE with 10% relief reported. Pre proc was 8/10 post proc and currently 7/10 11/8/24 left C5/6 6/7 MBB with 80% relief x1 week. Shoulder right shoulder injection on 11/30/2023 with at least 80% relief. Neck Pain This is a chronic problem. The current episode started more than 1 year ago. The problem occurs intermittently. The problem has been unchanged. The pain is associated with nothing. The pain is present in the left side. The quality of the pain is described as aching, stabbing, burning and cramping. The pain is at a severity of 5/10 (can get up to 9/10 when turning head or driving). The pain is moderate (to severe). The symptoms are aggravated by coughing, position, stress, sneezing, swallowing, twisting and bending. The pain is Same all the time. Stiffness is present All day, in the morning and at night. Associated symptoms include headaches, numbness (oswaldo hands to fingers), photophobia and weakness (BUE). Pertinent negatives include no chest pain, fever or leg pain. She has tried acetaminophen, muscle relaxants and home exercises for the symptoms. The treatment provided mild relief. Back Pain This is a chronic problem. The current episode started more than 1 year ago (early ). The problem occurs intermittently. The problem has been gradually improving since onset. The pain is present in the sacro-iliac, lumbar spine and gluteal. The quality of the pain is described as aching. Radiates to: hips. The pain is at a severity of 4/10. The pain is moderate. The pain is The same all the time. Exacerbated by: prolonged standing, walking and sitting ; lying down, stairs, bending, twisting, pushing/pulliing, cough/sneeze, transitioing, cold/heat Stiffness is present All day (varies with activity). Associated symptoms include headaches, numbness (oswaldo hands to fingers) and weakness (BUE). Pertinent negatives include no abdominal pain, bladder incontinence, bowel incontinence, chest pain, fever or leg pain. Risk factors include sedentary lifestyle. Treatments tried: PT/HEP 2019 w/no relief, NSAIDsx3 (naproxen, motrin, ibuprofen), heat, Flexeril, Neurontin, Elavil & [place] w/ some relief, OTC Arnica cream w/ mod relief. The treatment provided moderate relief. Wrist Pain The pain is present in the left wrist, right wrist, left hand and right hand (left greater than right). This is a chronic problem. The current episode started more than 1 year ago. There has been no history of extremity trauma. The problem occurs constantly. The problem has been gradually worsening. The quality of the pain is described as aching. The pain is at a severity of 3/10 (8/10 left wrist, 3/10 right wrist). The pain is moderate. Associated symptoms include numbness (oswaldo hands to fingers). Pertinent negatives include no fever. The symptoms are aggravated by activity and contact. She has tried NSAIDS, heat and acetaminophen for the symptoms. The treatment provided mild relief. The effect of pain on patient's ADLS: Moderate Impairment. Past Medical History: Diagnosis Date Ankylosing spondylitis ([facility]) Asthma as a child Astigmatism contacts Back pain Benign ovarian tumor Carpal tunnel syndrome Cervical disc syndrome Chronic musculoskeletal pain Chronic pain disorder Diabetes mellitus type 2, controlled (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) Syncope Vertigo Past Surgical History: Procedure Laterality Date CARPAL TUNNEL RELEASE Right EXCISION MASS Left 12/26/2018 Performed by Higinio Okeefe MD at [facility] Right Thumb joint replacement INJECTION BLOCK EPIDURAL CAUDAL STEROID N/A 02/17/2022 Performed by Sky Hemphill MD at [facility] INJECTION BLOCK EPIDURAL CERVICAL/THORACIC: C 12/02 joanne N/A 02/29/2024 Performed by Sky Hemphill MD at [facility] INJECTION BLOCK EPIDURAL CERVICAL/THORACIC: C71 JOANNE N/A 07/16/2020 Performed by Sky Hemphill MD at [facility] INJECTION BLOCK NERVE MEDIAL BRANCH: left C 5/6, 6/7 Left 04/11/2024 Performed by Sky Hemphill MD at [facility] INJECTION BLOCK NERVE MEDIAL BRANCH: left C56 67 71mbb Left 06/18/2020 Performed by Sky Hemphill MD at [facility] INJECTION BLOCK SACROILIAC JOINT Bilateral 05/18/2023 Performed by Sky Hemphill MD at [facility] INJECTION BLOCK SACROILIAC JOINT Bilateral 01/26/2023 Performed by Sky Hemphill MD at [facility] INJECTION BLOCK SACROILIAC JOINT Right 10/27/2022 Performed by Sky Hemphill MD at [facility] INJECTION BLOCK SACROILIAC JOINT Right 03/17/2022 Performed by Sky Hemphill MD at [facility] INJECTION BLOCK SACROILIAC JOINT Right 08/26/2021 Performed by Sky Hemphill MD at [facility] INJECTION BLOCK SACROILIAC JOINT Right 04/22/2021 Performed by Sky Hemphill MD at [facility] INJECTION BLOCK SACROILIAC JOINT Right 10/15/2020 Performed by Sky Hemphill MD at [facility] INJECTION BLOCK SACROILIAC JOINT: Right 06/16/2022 Performed by Sky Hemphill MD at [facility] INJECTION BURSA INTERMEDIATE Left Wrist Left 07/13/2023 Performed by Sky Hemphill MD at [facility] INJECTION BURSA INTERMEDIATE Left wrist Left 04/06/2023 Performed by Sky Hemphill MD at [facility] INJECTION BURSA LARGE JOINT: left CMC Left 09/22/2022 Performed by Sky Hemphill MD at [facility] INJECTION BURSA LARGE JOINT: right shoulder Right 11/30/2023 Performed by Sky Hemphill MD at [facility] INJECTION BURSA LARGE JOINT: right shoulder Right 02/16/2023 Performed by Sky Hemphill MD at [facility] INJECTION BURSA SMALL JOINT Left 1st CMC Left 01/18/2024 Performed by Sky Hemphill MD at [facility] INJECTION BURSA SMALL JOINT: wrist injection Left 10/07/2018 Performed by Sky Hemphill MD at [facility] INJECTION CAUDAL EPIDURAL WITH CATHETER, STEROID N/A 2018 Performed by Sky Hemphill MD at [facility] INJECTION LARGE JOINT BURSA: left ankle Left 10/22/2017 Performed by Sky Hemphill MD at [facility] INJECTION MEDIAL BRANCH NERVE BLOCK: left L34 45 51 Left 11/18/2018 Performed by Sky Hemphill MD at [facility] INJECTION SACROILIAC NERVE Bilateral 04/21/2019 Performed by Sky Hemphill MD at [facility] INJECTION SACROILIAC NERVE Left 11/01/2018 Performed by Sky Hemphill MD at [facility] JOINT REPLACEMENT Bilateral RADIO FREQUENCY ABLATION: left L34 45 [id number] Left 12/27/2018 Performed by Sky Hemphill MD at [facility] RADIO FREQUENCY ABLATION: left L34 [id number] Left 10/31/2019 Performed by Sky Hemphill MD at [facility] RADIO FREQUENCY ABLATION: right L34 45 51 Right 10/17/2019 Performed by Sky Hemphill MD at [facility] RADIO FREQUENCY ABLATION: right SI Right 05/16/2019 Performed by Sky Hemphill MD at [facility] RADIO FREQUENCY ABLATION: right SI rfa Right 01/09/2020 Performed by Sky Hemphill MD at [facility] RADIOFREQUENCY ABLATION SPINAL: left L 4/5 5/1 Left 08/04/2022 Performed by Sky Hemphill MD at [facility] RADIOFREQUENCY ABLATION SPINAL: left L 4/5 5/1 Left 03/04/2021 Performed by Sky Hemphill MD at [facility] RADIOFREQUENCY ABLATION SPINAL: left L 4/5, 5/1 Left 08/24/2023 Performed by Sky Hemphill MD at [facility] RADIOFREQUENCY ABLATION SPINAL: right L 4/5 5/1 Right 07/21/2022 Performed by Sky Hemphill MD at [facility] RADIOFREQUENCY ABLATION SPINAL: right L 4/5 5/1 Right 05/23/2021 Performed by Sky Hemphill MD at [facility] RADIOFREQUENCY ABLATION SPINAL: right L 4/5, 5/1 Right 10/12/2023 Performed by Sky Hemphill MD at [facility] RADIOFREQUENCY ABLATION SPINAL: right L34 45 51 Right 05/18/2017 Performed by Sky Hemphill MD at [facility] RADIOFREQUENCY ABLATION SPINAL: right SI Right 11/02/2017 Performed by Sky Hemphill MD at [facility] RADIOFREQUENCY ABLATION SPINAL: Right SI Right 03/05/2017 Performed by Sky Hemphill MD at [facility] RELEASE CARPAL TUNNEL Left 12/26/2018 Performed by Higinio Okeefe MD at [facility] REPAIR TENDON FINGER, 5th finger muscle repair Left 11/22/2020 Performed by Rahat Hirsch MD at [facility] TUBAL LIGATION Allergies Allergen Reactions Cinnamon Analogues Swelling Throat swells Coconut Swelling Throat swells Sulfa (Sulfonamide Antibiotics) Anaphylaxis ivp dye ok per pt noted for pain clinic House Dust Other reaction(s): Other: See Comments itching eyes, scratchy throat Oxycodone-Acetaminophen Other reaction(s): nightmares Darvocet A500 [Propoxyphene N-Acetaminophen] Other (See Comments) Nightmares Lactase GI Disturbance Shellfish Containing Products Abdominal Pain Ok for ivp dye per pt Noted for pain clinic Tizanidine (Bulk) Abdominal Pain Tree Nuts Abdominal Pain Family History Problem Relation Age of Onset Cancer Mother Lung cancer Mother Stroke Father Mahan's palsy Sister Rheum arthritis Nephew Graves' disease Niece Social History Socioeconomic History Marital status: Single Spouse name: Not on file Number of children: Not on file Years of education: Not on file Highest education level: Not on file Occupational History Not on file Tobacco Use Smoking status: Never Smokeless tobacco: Never Vaping Use Vaping status: Never Used Substance and Sexual Activity Alcohol use: No Alcohol/week: 0.0 standard drinks of alcohol Comment: stopped 6-7 years ago Drug use: No Sexual activity: Defer Partners: Male Other Topics Concern Not on file Social History Narrative Not on file Social Drivers of Health Financial Resource Strain: Medium Risk (02/07/2024) Overall Financial Resource Strain (CARDIA) Difficulty of Paying Living Expenses: Somewhat hard Food Insecurity: No Food Insecurity (05/08/2024) Hunger Screening Food Insecurity - Worry: Never True Food Insecurity - Inability: Never True Transportation Needs: Unmet Transportation Needs (02/07/2024) PRAPARE - Transportation Lack of Transportation (Medical): Yes Lack of Transportation (Non-Medical): Yes Physical Activity: Sufficiently Active (03/19/2023) Received from [facility] Exercise Vital Sign Days of Exercise per Week: 4 days Minutes of Exercise per Session: 90 min Stress: No Stress Concern Present (03/19/2023) Received from [facility] [place] [facility] [employer] - Occupational Stress Questionnaire Feeling of Stress : Only a little Social Connections: Socially Isolated (03/19/2023) Received from [facility] Social Connection and Isolation Panel [NHANES] Frequency of Communication with Friends and Family: Once a week Frequency of Social Gatherings with Friends and Family: Never Attends Yarsanism Services: Never Active Member of Clubs or Organizations: No Attends Club or Organization Meetings: Never Marital Status: Interpersonal Safety: Not At Risk (03/19/2023) Received from [facility] Healthcare, [facility] Humiliation, Afraid, Rape, and Kick questionnaire Fear of Current or Ex-Partner: No Emotionally Abused: No Physically Abused: No Sexually Abused: No Housing Instability: Low Risk (02/07/2024) Housing Instability Housing Instability: No Review of Systems Constitutional: Negative. Negative for chills and fever. HENT: Negative. Negative for congestion and sore throat. Eyes: Positive for photophobia. Respiratory: Negative. Negative for cough and shortness of breath. Cardiovascular: Negative. Negative for chest pain. Gastrointestinal: Negative. Negative for abdominal pain and bowel incontinence. Endocrine: Negative. Genitourinary: Negative. Negative for bladder incontinence. Musculoskeletal: Positive for back pain and neck pain. Skin: Negative. Allergic/Immunologic: Negative. Neurological: Positive for weakness (BUE), numbness (oswaldo hands to fingers) and headaches. Hematological: Negative. Psychiatric/Behavioral: Negative. Vital Signs: BP (!) 179/104 (BP Site: Right Arm, BP Postition: Sitting) Comment: advised pt to schedule with pcp and inform them of high BP. Pt states they made changes to her meds, explained to her the risks of high BP and importance of following up on that. Pt stated understaning. Pulse 100 Resp 18 SpO2 99% Physical Exam: GENERAL - Healthy patient that appears stated age. HEENT - Normocephalic / Atraumatic, Extraoccular movements intact, trachea midline, thyroid within normal limits. CV - pulse regular, Warm extremities with appropriate color of nailbeds. RESP - No obvious wheezing, No Shortness of Breath, No overexertion response to exam maneuvers. COORDINATION - remains intact. PSYCH - Alert and Oriented x4, Attentive and appropriate, constitutionally normal, displays normal mood and affect per situation, answered questions appropriately during examination, demonstrated appropriate attention during discussion, demonstrated appropriate cognitive reasoning and understanding of the medical condition by asking appropriate questions regarding the diagnosis and risks/benefits/alternatives of treatment modalities. No obvious deficits in memory, reasoning, or intellect. Cervical: SKIN - No rashes or bruising in the area of the patient s pain. LYMPH NODES - demonstrate no obvious enlargement. EXTREMITIES - Upper extremities are warm, with minimal edema and palpable pulses. Tenderness to palpation noted in the Left cervical spine and paraspinal musculature. Pain is elicited with flexion, extension, and lateral rotation of the cervical spine. Range of motion is diminished with these motions due to pain. Left facet palpation is noted to be painful and concordant with the patient s normal pain complaints. STRENGTH - noted to be 5 out of 5 all muscle groups bilateral upper extremities including muscles involving shoulder flexion and abduction, elbow flexion and extension, as well as wrist flexion and extension and intrinsic muscles of the hand. No notable atrophy, fasciculations or spasm. SENSORY - No notable sensory deficits in the bilateral upper extremities to touch or pinprick in all dermatomal distributions. Spurlings sign is negative. Assessment/Treatment Plan: Rhona was seen today for neck pain and back pain. Diagnoses and all orders for this visit: Cervical spondylosis without myelopathy - Case request operating room: INJECTION BLOCK NERVE MEDIAL BRANCH: left C56 67 Encounter for long-term opiate analgesic use Left C5/6 C6/7 Facet Injection/Medial Branch Block - under fluoroscopy It is hopeful that the described procedure will provide symptomatic pain relief. It is felt to be medically necessary noting that the patient has tried and failed more conservative modalities of therapy and this is the next most appropriate step. The procedure was described in detail to the patient as well as the potential benefits of pain reduction alongside risks of the procedure and alternatives. Risks were described as including, but not limited to bleeding, infection, nerve damage, spinal cord injury, paralysis, stroke, dural puncture headache, and medication reaction. The patient expressed understanding regarding the risks and benefits and wishes to proceed. Diagnostic facet injections and medial branch blocks should provide information to confirm that the noted facet arthropathy is the patient s most significant pain generator. If this provides significant but only temporary pain relief, the patient may in the future be a candidate for radiofrequency denervation of the facet joints to provide pain relief for approximately 1 year. Follow up 1-2 weeks post procedure The medications I have prescribed have been reviewed for medication interactions/contraindications and/or for upcoming procedures: continue current medication regimen without any changes. DISCUSSION: Treatment options discussed with patient and all questions answered to patient's satisfaction. Discussed the rules and regulations surrounding prescription of opioids and compliance at length. Failure to follow the rules and regulation will result in tapering and discontinuation of medications if applicable. The patient has been instructed as to the type of medication prescribed along with directions for use. Potential side effects have been discussed, along with risks and benefits of taking this medication. (S)he was instructed as to what to do if (s)he experiences side effects, including when to discontinue the medication. (S)he was advised to call this office in this event. Also discussed at length safety and security of RX and medications. Due to the high risk nature of this patient's pain medication regimen, frequent office visit refill appointments (every 1-3 months) are medically necessary to monitor for an addiction disorder. Prescribed medication that requires intensive monitoring for toxicity [place] and Gabapentin. OARRS and most recent UDS were reviewed, discussed and appropriate for medications prescribed. Treatment plans discussed but not opted for at this time: Cervical RFA. Patient would like to proceed with the current outlined treatment plan before moving forward with any other options. It is noted that the patient did have good response from the previously performed procedure. It is felt that the patient would benefit from an additional procedure of the same nature in that the same symptoms have returned. It is hopeful that this additional injection will provide additional benefit and duration when combined with the previous injection. The spine model was demonstrated and MRI was reviewed and used to explain the condition. Chronic conditions not treated during this visit that affected my overall medical decision making: Comorbidity- Diabetes The patient has a history of diabetes mellitus currently managed with medications. This will need to be considered prior to any procedure that would require the injection of steroid in that the patient may experience a transient increase in glucose as a result. Additional consideration will need to be given to timing the procedure early in the morning in that the patient will need to be fasting prior to the administration of anesthesia. Every effort will be made to perform the procedure as a 1st case due to this condition. And the patient will be instructed to hold their diabetic medications on that morning. If necessary, a blood glucose test can also be performed that morning. The risks/ benefits/ and alternatives will be weighed and explained to the patient prior to any procedure. OARRS: Reviewed. Scribe Statement: Scribed for and in the presence of AMEYA KINCAID by Joan Jackson RN. Provider Statement: IRAFAELA PA, personally performed the services described in the documentation, as scribed by Joan Jackson RN in my presence, and it is both accurate and complete. Joan Jackson RN 05/08/24 0908 Joan Jackson RN 05/08/24 0953 AMEYA Kincaid 05/08/24 1108 documented in this encounter [facility] 05-08-2024 Instructions Joan Jackson RN - 05/08/2024 8:00 AM EST Facet Injection / Medial Branch Block (MBB) / Sacroiliac (SI) Joint Injection / Cluneal NB A facet injection and sacroiliac joint injection are injections of local anesthetic and steroid into a joint in the spine. A medial branch block is similar, but the medication is placed outside the joint space near the nerve that supplies the joint called the medial branch (steroid may or may not be used). You may require multiple injections depending upon how many joints are involved. How Long Will This Procedure Last? The extent and duration of pain relief may depend on the amount of inflammation and how many areas are involved. Other coexisting factors may be responsible for your pain. If your pain goes away for a short time, but then returns, you may be a candidate for radiofrequency ablation (RFA). Activity Be active. Attempt activities and movements that typically cause pain to see if it feels better while doing them. We will give you a pain diary. Please fill this out as directed by your nurse in pre-op. This will help your doctor determine the effectiveness of the injection, and how to proceed. Bring the pain diary with you to your follow-up appointment. Medications You should not take your pain medications for 4-6 hours before or after the injection in order to properly diagnose if the injection provides adequate relief. Resume your routine medications after your procedure. You may resume blood thinners per your regular schedule after the procedure. If you received sedation: If you received sedation for your procedure, you may feel sleepy or not yourself for several hours today. For the next 24 hours avoid activities that requires alertness or coordination. This includes: Driving or operating heavy machinery Using power tools Consuming alcohol Do not make important or complex decisions or sign legal documents in the next 24 hours. Other Instructions: If you feel severe pain at the injection site with swelling and redness, increased leg weakness, a fever of 101 or higher, headache (or worsening headache), changes in vision or urinary retention: Please call the office at , or have someone take you to the nearest emergency room. Tell the emergency room staff that you recently had a spine injection. A doctor must evaluate you for bleeding and injection complications. If you lose control over bowel, bladder, or legs: Go to the nearest emergency room. documented in this encounter [facility] 05-06-2024 Miscellaneous Notes Last Office Visit: 03/20/2024 Next Office Visit: 05/08/2024 Last Urine Drug Screen: Lab Results Component Value Date BENZOSCRN Negative 07/03/2023 OARRS appropriate documented in this encounter [facility] 05-06-2024 Telephone encounter Note Last Office Visit: 03/20/2024 Next Office Visit: 05/08/2024 Last Urine Drug Screen: Lab Results Component Value Date BENZOSCRN Negative 07/03/2023 OARRS appropriate [facility] 04-25-2024 Telephone encounter Note Resent to [facility], not supposed to be sent to local as compound medication. [facility] 04-25-2024 Miscellaneous Notes Resent to [facility], not supposed to be sent to local as compound medication. documented in this encounter [facility] 04-23-2024 History of Present illness Narrative Images from the original note were not included. CHIEF COMPLAINT REASON FOR VISIT : fatigue HPI: Rhona Cleveland Garcia is a 64 y.o. female who presents for [facility] televisit. She is at home. She consents to visit. She ran out of her acyclovir and was having increasing fatigue, pain, brain fog. Acyclovir helps her symptoms with history of EBV. She still has issues with her hands and pain. Her fingers are extending more. She is going to have image with [facility]. CURRENT MEDICATIONS: ALLERGIES/DISCONTINUE MEDICATIONS Current Outpatient Medications Medication Instructions acyclovir (ZOVIRAX) 400 mg, 2 times daily amitriptyline (ELAVIL) 25 mg, Oral, Nightly biotin 10 MG capsule 1 capsule, Oral, 2 times daily Blood Glucose Monitoring Suppl (Accu-Chek Guide) w/Device kit USE DIRECTED cholecalciferol (VITAMIN D-3) 400 Units, Oral, Daily colchicine 0.6 mg, 2 times daily Cosentyx Sensoready Pen 300 mg, Every 7 days cyclobenzaprine (FLEXERIL) 10 mg, Oral, 3 times daily gabapentin (Neurontin) 300 MG capsule 2 capsules, Oral, 3 times daily glimepiride (AMARYL) 1 mg, Oral, Daily before breakfast HYDROcodone-acetaminophen ([place]) 5-325 MG tablet 1 tablet, Oral, 4 times daily PRN lisinopril 40 mg, Oral, Daily Multiple Vitamins-Minerals (Oncovite) tablet 1 tablet, Oral, Every morning omeprazole (PRILOSEC) 20 mg, Oral, 2 times daily before meals Allergies Allergen Reactions Cinnamon Swelling Throat swells Coconut Fatty Acid Swelling Other Reaction(s): GI Upset Throat swells Sulfa Antibiotics Anaphylaxis and Rash ivp dye ok per pt noted for pain clinic Coconut (Cocos Nucifera) Other Reaction(s): GI Upset Dust Mite Extract Other reaction(s): Other: See Comments itching eyes, scratchy throat Other Reaction(s): Other: See Comments itching eyes, scratchy throat Leflunomide Other Reaction(s): Intolerance headaches, dizziness, blurred vision, hairloss, joint pain Oxycodone-Acetaminophen Other Reaction(s): nightmares Other reaction(s): nightmares Shellfish-Derived Products Other Reaction(s): Unknown Sulfasalazine Other Reaction(s): Unknown Other GI intolerance hives Propoxyphene Other Reaction(s): Other (See Comments), Other: See Comments Nightmares Heart palpitations Other Reaction(s): Other: See Comments Tilactase Other Reaction(s): GI Disturbance, GI Upset Tizanidine Other Reaction(s): Abdominal Pain Medications Discontinued During This Encounter Medication Reason doxycycline (Vibramycin) 100 MG capsule PAST MEDICAL HISTORY: SURGICAL/SOCIAL/FAMILY HISTORY DEPRESSION SCREEN: Past Medical History: Diagnosis Date A-fib ([facility]) Alteration of awareness Anemia Ankylosing spondylitis ([facility]) Arthritis Brachial neuritis Cervicalgia Childhood asthma ([facility]) no further symptoms CTS (carpal tunnel syndrome) 1984 DDD (degenerative disc disease), cervical Depression ([facility]) Diabetes mellitus ([facility]) 2021 Difficulty walking 2013 Fibromyalgia Headache History of being hospitalized 2001 cardiac reasons History of medical problems Is on a high sodium diet Hypertension ([facility]) Insomnia 2015 Joint pain Lack of coordination Lumbago Malaise and fatigue Memory loss I forgot. 2015 Migraine ([facility]) 1984 Movement disorder 2015 Numbness 1984 OA (osteoarthritis) JEOVANNY (obstructive sleep apnea) Osteoporosis ([facility]) Raynaud's disease Restless leg syndrome 2015 Scleroderma ([facility]) Spinal stenosis Stroke (cerebrum) ([facility]) Syncope 1965 TIA (transient ischemic attack) Vision loss 1965 Weakness of limb 2014 Past Surgical History: Procedure Laterality Date CARPAL TUNNEL RELEASE OTHER SURGICAL HISTORY 05/08/2017 [facility] vicet injection PAIN MANAGEMENT 02/2022 [place] HAND/FINGER SURGERY UNLISTED 2008 (R) Thumb [facility] - Bone Shaving - Dr Teixeira TOTAL HIP ARTHROPLASTY 2012 [place] - Dr Tyson @ TOTAL HIP ARTHROPLASTY 2013 [place] - Dr Tyson @ TUBAL LIGATION 1998 UTERINE FIBROID SURGERY Social History Tobacco Use Smoking status: Never Smokeless tobacco: Never Substance Use Topics Alcohol use: Not Currently Comment: No alchohol since 2009 Drug use: Never Family History Problem Relation Name Age of Onset Lung cancer Mother Stroke Father Depression: At risk (03/13/2024) Received from [facility] PHQ-2 Total Score: 10 REVIEW OF SYMPTOMS: Review of Systems Constitutional: Positive for fatigue. Negative for chills and fever. HENT: Negative for tinnitus. Eyes: Negative for photophobia. Respiratory: Negative for shortness of breath. Cardiovascular: Negative for chest pain. Gastrointestinal: Negative for nausea and vomiting. Genitourinary: Negative for frequency. Musculoskeletal: Positive for arthralgias. Negative for back pain, gait problem and neck pain. Neurological: Negative for dizziness, tremors, weakness, light-headedness, numbness and headaches. Psychiatric/Behavioral: Positive for decreased concentration. OBJECTIVE: 06/18/2023 12:57 PM 03/19/2023 9:03 AM 09/11/2022 12:00 PM Vitals BMI 26.29 kg/m2 25.84 kg/m2 25.55 kg/m2 BSA (m2) 1.98 m2 1.97 m2 1.95 m2 Systolic 118 138 138 Diastolic 72 88 82 Heart Rate 106 97 SpO2 95 % 95 % Temp 97.9 F 98.4 F Height (in) 5' 9 5' 9 Weight (lb) 178 175 173 Visit Report Report Report EXAM: Neurological Exam Mental Status Awake, alert and oriented to person, place and time. Oriented to person, place and time. Speech is normal. Language is fluent with no aphasia. 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 Acyclovir has really helped her symptoms however I did discuss low dose naltrexone treatment. I will start LDN 1 mg daily and each month we can increase by 1 mg to max of 12 mg for inflammatory pain, fibro and autoimmune symptoms. This was discussed with patient all questions answered. Total time 20 minutes spent reviewing records, performing medically appropriate exam, counseling , education, ordering medication, tests, and/or procedures, documenting health information into the health record, communicating results to the patient, and coordinating care. documented in this encounter [facility] 04-07-2024 Telephone encounter Note Duplicate request. [facility] 04-07-2024 Miscellaneous Notes Duplicate request. documented in this encounter [facility] 04-03-2024 Telephone encounter Note Called patient on April 03, 2024 at 10:01 AM to schedule their MSK US exam. No answer, left VM, 3rd attempt. [facility] 04-03-2024 Miscellaneous Notes Called patient on April 03, 2024 at 10:01 AM to schedule their MSK US exam. No answer, left VM, 3rd attempt. Called patient on April 02, 2024 at 8:13 AM to schedule their MSK US exam. No answer, left VM, 2nd attempt. Called patient on April 01, 2024 at 10:14 AM to schedule their MSK US exam. No answer, left VM, 1st attempt. Visit Type: MSK SYN Visit Length: 45, 50 OR 60 MINUTES Order Name/Protocol: US HAND/WRIST SYNOVIAL SCREEN RT+LT Preferred Provider: N/A Comment: N/A Location: ANY FACILITY Slot held: N/A documented in this encounter [facility] 04-02-2024 Telephone encounter Note Called patient on April 02, 2024 at 8:13 AM to schedule their MSK US exam. No answer, left VM, 2nd attempt. [facility] 04-01-2024 Telephone encounter Note Called patient on April 01, 2024 at 10:14 AM to schedule their MSK US exam. No answer, left VM, 1st attempt. [facility] 03-31-2024 Telephone encounter Note Visit Type: MSK SYN Visit Length: 45, 50 OR 60 MINUTES Order Name/Protocol: US HAND/WRIST SYNOVIAL SCREEN RT+LT Preferred Provider: N/A Comment: N/A Location: ANY FACILITY Slot held: N/A [facility] 03-29-2024 Instructions Eugenio Ellis MD - 03/29/2024 6:39 PM EDT May apply over the counter arthritis cream (biofreeze, icy hot, asper cream, tiger balm, capsacin, etc.) to painful joints up to four times a day. Avoid contact with eyes. May take ES acetaminophen 500mg every 4-6hours for joint pain. Do not exceed 3000mg /day. Decrease stress Improve sleep May apply heat/ice 20minutes on and off to areas of pain Avoid aggravating triggers If needed, may take Calcium 1000mg daily with food in DIVIDED doses If normal, take Vitamin D 4000 International Units daily with food Vitamin b12 as instructed Neurontin/gabapentin as instructed OFF cardizem May apply nitrobid for raynauds as instructed, may cause headaches Start colchicine once to twice a day if tolerated, may cause diarrhea OFF enbrel due to insurance denial Consentyx sq injection as instructed Please hold consentyx if on antibiotics or if you have any signs/symptoms of infection. 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 Moisturizing treatments Stimulating saliva -- Simply sucking on sugarless candy or dried fruit slices (eg, peaches or nectarines) can stimulate the flow of saliva in many patients. Erie flavored sugarless tablets and sugar-free chewing gum may also be helpful. In some patients, medications such as pilocarpine or cevimeline are given to increase saliva production. Replacing secretions in the mouth -- Sipping on water throughout the day is an easy and effective treatment of dry mouth for many patients. The water does not have to be swallowed. It can be rinsed around the mouth and then spit out. If this is not effective, an artificial saliva product (spray or lozenge) may be helpful. If painful gums are a problem, a gel that relieves dry mouth (such as Oral Balance) can be helpful. Avoiding cavities -- Patients with SS are at increased risk for dental cavities. SS patients should perform careful dental hygiene, ideally brushing and dental flossing after eating meals and snacks. Patients should visit their dentist at least every six months. Toothpaste designed specifically for patients with dry mouth is available (eg, Biotene , Orajel ). These lack the detergents that are present in many types of toothpaste, which can irritate a dry mouth. Toothbrushes with special features that help clean between the teeth and electric toothbrushes may also help to keep the teeth clean. Patients should use a toothpaste with fluoride or a special fluoride rinse or varnish. We recommend a fluoride treatment with a dentist or dental hygienist after each cleaning. Since the dentist may not stock this treatment, patients should contact the dental office prior to the appointment. Dry eye -- Use of a humidifier or moist washcloth over the eyes may provide some relief for dry eyes. Most patients also use an artificial tear drop. Many different solutions are available; a clinician can recommend an appropriate choice based on an individual's pattern of dryness and fluid production in the eye. Some patients are sensitive to the preservatives found in artificial tear preparations. If burning or itching occurs, a brand with a non-irritating preservative may be tried. Alternately, a preservative-free variety can be used. Eye drops without preservative come in small, single-dose containers that may be hard for some people with joint and/or vision problems. A prescription eye drop containing cyclosporine is also available (Restasis ). Some patients use an eye ointment at night. It is important to use only about 1/8 (3 mm) of the ointment because overuse can block the ducts and lead to a condition called blepharitis (see Blepharitis (eyelid inflammation) below). Preserving natural tears -- Various measures can be used to preserve a patient's own tears. Gutierrez can be fitted on the sides of glasses, helping to protect the eye from air and wind, reducing evaporation of tears. Goggles or wrap-around sunglasses serve a similar function. Another approach is a simple surgical procedure called punctal occlusion. In this procedure, an marine firefighter inserts small plugs into the tear ducts in the corner of the lower eyelid, nearest the nose, where the tears normally collect and drain into the nasal passages. By blocking this duct, the patient's tears stay on the eye longer. There are several types of plugs, one of which does not touch the surface of the eyeball; these plugs are generally preferred. Treating other problems Fungal infections in the mouth -- Prescription medications are available to treat painful mouth lesions due to oral candidiasis (yeast infection); these include clotrimazole, nystatin elixir, miconazole gel, or amphotericin B lozenges. Patients who wear dentures and develop an infection should disinfect the dentures overnight while being treated. The soak should include nystatin powder or 0.2 percent chlorhexidine solution to prevent reinfection. Dry nose -- It is important to treat nasal dryness or stuffiness because blocked nasal passages can increase mouth breathing and worsen dry mouth. Saline nasal sprays are available in most drugstores. Other cause of nasal blockage, including allergy or sinus infection, should be treated promptly. (See Patient information: Rhinitis). Blepharitis (eyelid inflammation) -- Blepharitis causes symptoms that are similar to those of dry eye (swollen lids and redness of the inside of the lids). Gently washing the skin of the eyelids can relieve blepharitis. This can be done with a warm wet washcloth and a small amount of no tears shampoo. With the eyes closed, the excess debris should be rubbed from the inner eye to the outer eye area. Dryness in other areas -- Patients with SS may have dryness in other areas, including the lips, skin, and the vagina. Dry lips may require petroleum jelly or lip salves. Dry skin usually improves with frequent and liberal use of a moisturizing cream or ointment. Some women with SS have difficulty with vaginal dryness, especially after menopause. There are several products specifically designed for vaginal dryness, including vaginal moisturizers, estrogen cream, vitamin E oil, and lubricants for use with sexual intercourse; a healthcare provider should be consulted for specific recommendations. GENERAL MEASURES -- The following general measures are helpful for all patients with Raynaud's: Avoidance of sudden cold exposure and stress reduction Use of strategies to keep the whole body warm, including dressing warmly (eg, with thermal underwear and heat conserving hat) Keeping digits warm (eg, mittens or electric hand warmers instead of gloves). Knowledge of methods to help terminate an attack of RP. These include placing the hands under warm water or in a warm place (such as the axilla), or rotating arms in a whirling or windmill pattern. Avoidance of rapidly changing temperatures, such as quickly moving from a hot environment (90 degrees F) into an air-conditioned room (70 degrees F); cool breezes, or humid cold air is also recommended. Avoidance of smoking is recommended since regular smokers are sensitized to the vasoconstrictive properties of cigarettes; the response in patients with RP does not appear to be different from that in normals [5]. Avoiding second hand smoke is prudent. Avoidance of sympathomimetic drugs (such as decongestants, amphetamines, diet pills, herbs containing ephedra) is generally recommended, but studies of the true impact of [id number] preparations (such as cold medications) have not yet been performed. Discontinuing caffeine containing beverages has also been recommended, but xanthines transiently reduce peripheral vascular resistance. Patients with vibration-induced RP should avoid use of vibrating tools. Raynaud's phenomenon often can be managed just with lifestyle modification. Certain general measures may be adopted to help prevent and terminate Raynaud s attacks. These simple measures can reduce the frequency, severity, and duration of attacks and include avoiding cold temperatures and temperature fluctuations; alleviating stress; adopting measures to keep the body warm, including adequate clothing (eg, using multiple layers, wearing thermal underwear and a warm hat); and keeping the fingers warm (eg, by using mittens or electric hand warmers instead of gloves). Placing the hands under warm water or rotating the arms in a windmill pattern may help abort Raynaud s attacks. Both active and passive smoking should be avoided to help minimize the vasoconstrictive effects of tobacco. Sympathomimetic drugs (eg, decongestants, stimulants, and anorexiants) should also be avoided. A calcium channel agnieszka, such as Amlodipine (Norvasc) 2.5mg tablet at night or Procardia, can be used during the winter months for intractable Raynaud's phenomenon. 12/25/23 high crp 1.1 (NL0-0.744mg/dL), glucose 140, vitamin b12>1500;low hgb 10.6normal cmp, potassium 3.8, creat 0.83, calcium 9, alkaline phosphatase 69, ast 15, alt 12, vitamin D 53.8, wbc 6.9, plts 317;negative quantiferon tb; [facility] 07/03/23 normal cmp, potassium 4.1, creat 0.81, glucose 71, calcium 9, alkaline phosphatase 74, ast 18, alt 16, crp 0.2 (NL0-0.744mg/dL), vitamin D 54.4, cbc, wbc 5.6, hgb 11.8, plts 272, esr 30 (normal 0-30mm/hr) [facility] 02/16/23 normal vitamin D 58.2, glucose 85, crp 0.1 (normal 0-0.744mg/dL), esr 17, wbc 5, hgb 12.1, plts 230, cmp, creat 0.77, calcium 9, [facility] 11/07/22 low hgb 11.6;normal cmp, glucose 130, potassium 4, creat 0.94, calcium 9.2, alkaline phosphatase 5, ast 12, alt 18, vitamin D 53.2, esr 9 (NL0-30mm/hr), crp 0.1 (NL0-0.744mg/dL), wbc 7.9, plts 283; [facility] 08/14/22 high vitamin b12>1500pg/mL);normal cmp, potassium 4.1, creat 0.84, glucose 74, calcium 8.8, alkaline phosphatase 47, ast 13, alt 20, crp<0.1 (0-0.74mg/dL), vitamin D 56.7, wbc 6.1, hgb 12.2, plts 252, esr 10 (NL0-30mm/hr);negative quantiferon tb; [facility]; 07/06/22 left hand xrays- advanced degenerative joint disease throughout the wrist with appearances most compatible with advanced osteoarthritis associated with with chondrocalcinosis. Osteoarthritis superimposed upon an underlying inflammatory arthropathy is possible given extensive abnormality involving wrist. Milder osteoarthritis within several of the DIP. documented in this encounter [facility] 03-29-2024 History of Present illness Narrative THIS IS A AMBULATORY VIRTUAL VISIT Patient has verbally agreed/consented to this virtual encounter, not originating from a related Evaluation & Management service provided within the previous 7 days. NOTE: Cannot be used if an Evaluation & Management service or procedure is planned within the next 24 hours. I have communicated my name and active licensure. The patient's identity and physical location were verified at the time of this visit. Either the patient or their legal surgical device sales representative has been informed of the risks and benefits of -- and alternatives to -- treatment through a remote evaluation and consents to proceed with the evaluation remotely. It required patient-provider interaction for the medical decision making as documented below. Persons Present: self (in home) Provider: (in office) VIRTUAL VISIT Follow up for Ankylosing spondylitis/CTS/raynauds/joint pain Today's visit 03/29/24:taking cosentyx, gabapentin 300mg 5per day, flexeril, elavil, biotin, prilosec. Better with recent oral steroids x3 with good response. stable eye exam. Raynauds better with warmer weather, no digital ulcers. Outside 03/26/24 low hgb 11.1;high glucose 142, vitamin b12>1500;normal rest of cbc, cmp, vitamin D 54.4; Outside 02/11/24 low wbc 3.8, hgb 11.3, mag 1.7;high cholesterol 246, hgba1c 7;normal cmp, plts 217, tsh 2.39; Insurance denied enbrel. Started cosentyx 6weeks ago. 03/21/24 reports The fingers of my right hand are becoming difficult to straighten, the middle one is worse, it really hurts too. Two weeks ago I had two shots between my shoulder blades to stop the pain from my neck shooting down my arm That finger and the index finger are also becoming twisted. If I remain in one position for too long, all my muscles and joints feel as if they ve turned into cement, I have to work out the kinks before I can move. Once I bent over and could not stand back up, 10-30% improvement from cosentyx vs. 50-75% improvement from enbrel. limited exercise due to pain. Fingers and DIP and swelling. Chronic current pain in hands and fingers twisting, neck, hips (THR 11yrs ago). Reports pain 01/11. Has 30 min minimal AM stiffness. Feels safe at home. Has enough food, supplies and medications. Overall uncomfortable but happy with rheum care. No falls/fx/trauma/illness/oral sores/rash/hairloss/jaw pain/dysphagia/epistaxis/hemoptys is since last visit. No adverse effects with meds. No other complaints. Patient denies fever, chills, cp, dyspnea, nausea, vomiting, night sweats, scalp tenderness, visual changes, cadena, bowel/bladder changes, weight changes or other complaints. Last visit supportive care, check labs, may start methotrexate and folic acid if symptoms persist/worsens, restart fall precautions, see neurology for dizziness/crystals care, see primary care provider for depression care/concern about low glucose, flexeril prn, prn neurontin, see derm, see GI, biotene products, follow up with ortho for s/p L CTS care/improved with injections/may try for shoulder/R hand, on cardizem per PCP/ok to increase for winter, raynauds general measures, wear heated hand glove liners, for flares take prednisone ashanti, f/u ENT for TMJ growth/pain, f/u spine/PT, tolerating cimzia as instructed, OFF enbrel 50mg sq injection TWICE a week since 08/2015 since SSZ/methotrexate not tolerated, did discuss alternative biologics if high APRs, prn heat/ice/otc arthritis creams, unable to wear wrist braces due to thumb pain, correction pain recommendations per pain clinic/improved with injections, weightbearing exercises/stretching, 01/17/24:taking flexeril, gabapentin, elavil, off vitamin D script, enbrel (but insurance only approves 50mg sq injection once a week even if patient was better with twice a week for years) just started recent oral steroids. 3-4months ago eye exam, worsening cataracts.. Raynauds better with warmer weather, no digital ulcers. Fell a few times. 01/18/24 due for left shoulder injection 12/25/23 seen for neck pain 12/25/23 high crp 1.1 (NL0-0.744mg/dL), glucose 140, vitamin b12>1500;low hgb 10.6normal cmp, potassium 3.8, creat 0.83, calcium 9, alkaline phosphatase 69, ast 15, alt 12, vitamin D 53.8, wbc 6.9, plts 317;negative quantiferon tb; 11/30/23 had right shoulder injection [facility] 07/03/23 normal cmp, potassium 4.1, creat 0.81, glucose 71, calcium 9, alkaline phosphatase 74, ast 18, alt 16, crp 0.2 (NL0-0.744mg/dL), vitamin D 54.4, cbc, wbc 5.6, hgb 11.8, plts 272, esr 30 (normal 0-30mm/hr) 05/07/23 last dose cimzia 06/27/23 restart enbrel 50-75% improvement from enbrel, worse pain since late for medication and decreased to once a week. limited exercise due to pain. R 2nd/3rd MCP, R hand swelling. Chronic current pain in R hand now claw like, unable close and flatten, L>R hips, low back, legs cramp . More neck crunching, left hip popping(10years since hip surgery). Reports pain 01/11. Has 2hr minimal AM stiffness. Feels safe at home. Has enough food, supplies and medications. Overall uncomfortable but happy with rheum care. No fx/trauma/illness/oral sores/rash/hairloss/jaw pain/dysphagia/epistaxis/hemoptys is since last visit. No adverse effects with meds. No other complaints. Patient denies fever, chills, cp, dyspnea, nausea, vomiting, night sweats, scalp tenderness, visual changes, cadena, bowel/bladder changes, weight changes or other complaints. Last visit supportive care, restart fall precautions, see neurology for dizziness/crystals care, see primary care provider for depression care/concern about low glucose, flexeril prn, prn neurontin, see derm, see GI, biotene products, follow up with ortho for s/p L CTS care/improved with injections, on cardizem per PCP/ok to increase for winter, raynauds general measures, wear heated hand glove liners, for flares take prednisone ashanti, f/u ENT for TMJ growth/pain, f/u spine/PT, tolerating cimzia as instructed, OFF enbrel 50mg sq injection TWICE a week since 08/2015 since SSZ/methotrexate not tolerated, did discuss alternative biologics if high APRs, prn heat/ice/otc arthritis creams, unable to wear wrist braces due to thumb pain, director long term care pain recommendations per pain clinic/improved with injections, weightbearing exercises/stretching, 04/06/23:was on enbrel. Taking cimzia had 3rd injection yesterday. Neurontin, elavil, flexeril, mobic, last week Left forearm wound, infected 2days later when to ED, treated with oral antibiotics, tetanus injections, xrays negative for fracture. Fall a lot, due to crystals brain. Seeing neurology. 03/04/23 recent oral steroids. Saw shoulder injections 12/2022 and 04/06/23 left wrist steroid injections with some response. 70% improvement from cimzia. Saw ortho offered cleaning left wrist and fusion but patient declined. limited exercise due to pain. Left swelling. Chronic current pain in left wrists, Right shoulder, worse pain with weather change. Reports pain 12/11. Has minimal AM stiffness. Raynauds stable. Feels safe at home. Has enough food, supplies and medications. Overall mildly uncomfortable but happy with rheum care. No falls/fx/trauma/illness/oral sores/rash/hairloss/jaw pain/dysphagia/epistaxis/hemoptys is since last visit. No adverse effects with meds. No other complaints. Patient denies fever, chills, cp, dyspnea, nausea, vomiting, night sweats, scalp tenderness, visual changes, cadena, bowel/bladder changes, weight changes or other complaints. Last visit supportive care, start fall precautions, see neurology for dizziness/crystals care, see primary care provider for depression care/concern about low glucose, flexeril prn, prn neurontin, see derm, see GI, biotene products, follow up with ortho for s/p L CTS care/possible L thumb/wrist ganglion cyst care, on cardizem per PCP/ok to increase for winter, raynauds general measures, wear heated hand glove liners, for flares take prednisone ashanti, f/u ENT for TMJ growth/pain, f/u spine/PT, enbrel 50mg sq injection TWICE a week since 08/2015 since SSZ/methotrexate not tolerated, did discuss alternative biologics if high APRs, prn heat/ice/otc arthritis creams, unable to wear wrist braces due to thumb pain, correction pain recommendations per pain clinic/improved with injections, weightbearing exercises/stretching 08/28/22:reports dry eyes/mouth, headache, numbness, memory loss, gerd, weight changes. taking flexeril, elavil, enbrel, neurontin 300mg 1-2cap twice a day, mvi. Fell months ago, tooth crack. Multiple falls, crystals, prescribed medication made her worse, will see soon. back injection of steroids a few months ago. No recent oral steroids. 70% improvement from enbrel. Was off for a months due to insurance and felt worse and more pain all over. no exercise due to dizziness. Left wrist swelling. Chronic current pain in left buttocks, low back, left hand/wrists. Reports pain /10. Has 30min minimal AM stiffness. More raynauds of fingers, multiple cuts, slow healing, no digital ulcer. 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 Feels safe at home. Has enough food, supplies and medications. Overall mildly uncomfortable but happy with rheum care. No falls/fx/trauma/illness/oral sores/rash/hairloss/jaw pain/dysphagia/epistaxis/hemoptys is since last visit. No adverse effects with meds. No other complaints. Patient denies fever, chills, cp, dyspnea, nausea, vomiting, night sweats, scalp tenderness, visual changes, cadena, bowel/bladder changes, or other complaints. Last visit supportive care, see neurology, see primary care provider for depression care, increase flexeril prn, increase prn neurontin, see derm, see GI, biotene products, follow up with ortho for s/p L CTS care/possible L thumb/wrist ganglion cyst care, on cardizem per PCP/ok to increase for winter, raynauds general measures, wear heated hand glove liners, for flares take prednisone ashanti, f/u ENT for TMJ growth/pain, f/u spine/PT, enbrel 50mg sq injection TWICE a week since 08/2015 since SSZ/methotrexate not tolerated, did discuss alternative biologics if high APRs, prn heat/ice/otc arthritis creams, unable to wear wrist braces due to thumb pain, director long term care pain recommendations per pain clinic/improved with injections, weightbearing exercises/stretching, 11/11/21:had COVID19 infection end of 2020, no antibody infusion, treated with steroids, missed enbrel x 3weeks. Still tired since infection, still has loss of taste and smell. Lost 60lbs. taking elavil, mobic, neurontin 5caps per day, flexeril, enbrel, biotin, vitamin D two gummies, vitamin b12 two gummies. 50-60% improvement from enbrel. Chronic current pain in back, hands, arms. Will see neurology. 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 Reports pain 12/11. minimal AM stiffness. No COVID, flu vaccine. Stopped advil since it gave her headaches. Taking tylenol. raynauds stable. Feels safe at home. Has enough food, supplies and medications. Overall uncomfortable but happy with rheum care. No falls/fx/trauma/illness/oral sores/rash/hairloss/jaw pain/dysphagia/epistaxis/hemoptys is since last visit. No adverse effects with meds. No other complaints. Patient denies fever, chills, cp, dyspnea, nausea, vomiting, night sweats, scalp tenderness, visual changes, cadena, bowel/bladder changes, weight changes or other complaints. Last visit supportive care, [place] for COVID vaccines and booster, see primary care provider for depression care, increase flexeril prn, increase prn neurontin, see derm, see GI, biotene products, follow up with ortho for s/p L CTS care/possible L thumb/wrist ganglion cyst care, on cardizem per PCP/ok to increase for winter, raynauds general measures, wear heated hand glove liners, for flares take prednisone ashanti, f/u ENT for TMJ growth/pain, f/u with PCP/neurology for memory changes, f/u spine/PT, enbrel 50mg sq injection TWICE a week since 08/2015 since SSZ/methotrexate not tolerated, did discuss alternative biologics if high APRs, prn heat/ice/otc arthritis creams, unable to wear wrist braces due to thumb pain, correction pain recommendations per pain clinic/improved with injections, weightbearing exercises/stretching 01/19/21:no COVID vaccines yet. Has enbrel twice a week. Had steroids once since last office visit for joint pain flare. Needs elavil refilled, it helps her sleep. Taking advil. Reports pain 11/11. Minimal Am stiffness. Chronic pain in hands/back/legs. Jaw pain better. More raynauds worse with A/C. Better with gloves. More R index deviated. L 5th finger chronically flexed, surgery for finger 11/2020. Now has diabetes. Taking neurontin. Feels safe at home. Has enough food, supplies. Overall mildly uncomfortable but happy with rheum care. No falls/fx/trauma/illness/oral sores/rash/hairloss/jaw pain/dysphagia/epistaxis/hemoptys is since last visit. No adverse effects with meds. No other complaints. Patient denies fever, chills, cp, dyspnea, nausea, vomiting, night sweats, scalp tenderness, visual changes, cadena, bowel/bladder changes, weight changes or other complaints. Last visit supportive care, see primary care provider for depression care, increase flexeril prn, increase prn neurontin, see derm, see GI, biotene products, follow up with ortho for s/p L CTS care/possible L thumb/wrist ganglion cyst care, on cardizem per PCP/ok to increase for winter, raynauds general measures, wear heated hand glove liners, for flares take prednisone ashanti, f/u ENT for TMJ growth/pain, f/u with PCP/neurology for memory changes, f/u spine/PT, enbrel 50mg sq injection TWICE a week since 08/2015 since SSZ/methotrexate not tolerated, did discuss alternative biologics if high APRs, prn heat/ice/otc arthritis creams, unable to wear wrist braces due to thumb pain, director long 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 Due for neck epidural soon. More hand pain. Falls occasionally due to balance. Difficulty holding phone. No response with voltaren. Had dexamethasone but kept her up at night for days, with mild response with hands. Taking neurontin 1cap in AM and noon, 2caps at night has leg cramps. Taking flexeril 1 tab in AM and non, 2caps at night. Tried over the counter supplement for cramps. Feels safe at home. Has enough food, supplies and medications. TMJ stable. Oral sores better. Did not have ganglion cysts removed due fo pandemic. Reports pain -12/11. Extended AM stiffness. raynauds stable, not interested in COVID vaccine, Overall mildly uncomfortable but happy with rheum care. No fx/trauma/illness/oral sores/rash/hairloss/jaw pain/dysphagia/epistaxis/hemoptys is since last visit. No adverse effects with meds. No other complaints. Patient denies fever, chills, cp, dyspnea, nausea, vomiting, night sweats, scalp tenderness, visual changes, cadena, bowel/bladder changes, weight changes or other complaints. Last visit supportive care, see derm, see GI, biotene products, follow up with ortho for s/p L CTS care/possible L thumb/wrist ganglion cyst care, on cardizem per PCP/ok to increase for winter, raynauds general measures, wear heated hand glove liners, for flares take prednisone ashanti, f/u ENT for TMJ growth/pain, f/u with PCP/neurology for memory changes, f/u spine/PT, enbrel 50mg sq injection TWICE a week since 08/2015 since SSZ/methotrexate not tolerated, did discuss alternative biologics if high APRs, prn heat/ice/otc arthritis creams, unable to wear wrist braces due to thumb pain, correction pain recommendations per pain clinic/improved with SI injections, weightbearing exercises/stretching 01/12/20:had 3RFAs for low back pain, not sure if working/helping yet. TMJ better with prednisone. Feet/ankles R>L swelling from CCB, but stopped and no more swelling. Oral sores, worse after accidental biting. Worse raynauds white fingers. R great toe aches. Reports pain 01/11. Minimal AM stiffness. Two ganglion cyst due for removed. S/p L CTS release. Not sure if enbrel still working or if the increased stress has made her symptoms worse. Usually stays at home. Feels safe at home. Has enough food, supplies and medications. Overall mildly uncomfortable but happy with rheum care. No falls/fx/trauma/illness/oral sores/rash/hairloss/jaw pain/dysphagia/epistaxis/hemoptys is since last visit. No adverse effects with meds. No other complaints. Patient denies fever, chills, cp, dyspnea, nausea, vomiting, night sweats, scalp tenderness, visual changes, cadena, bowel/bladder changes, weight changes or other complaints. Last visit supportive care, see derm, see GI, biotene products, follow up with ortho for s/p L CTS release/possible L thumb/wrist ganglion cyst care, on cardizem per PCP/ok to increase for winter, raynauds general measures, wear heated hand glove liners, for flares take prednisone ashanti, f/u ENT for TMJ growth/pain, f/u with PCP/neurology for memory changes, f/u spine/PT, enbrel 50mg sq injection TWICE a week since 08/2015 since SSZ/methotrexate not tolerated, prn heat/ice/otc arthritis creams, unable to wear wrist braces due to thumb pain, correction pain recommendations per pain clinic/improved with SI injections, weightbearing exercises/stretching 07/24/19;had SI low steroid injections improved bilaterally ankle swelling and made it easier for her to get up out of bed. The ankle swelling not improved with oral prednisone. On neurontin/cardizem. [place] worse when she ran out of acyclovir from neurology. Had L cts release 02/2019 with minimal response. May have L thumb/wrist ganglion cyst removal in future. Taking enbrel. Not taking vitamin b12. Tired. Reports pain /10. Minimal Am stiffness. Overall mildly uncomfortable but happy with rheum care.No falls/fx/trauma/illness/oral sores/rash/hairloss/jaw pain/dysphagia/epistaxis/hemoptys is since last visit. No adverse effects with meds. No other complaints. Patient denies fever, chills, cp, dyspnea, nausea, vomiting, night sweats, scalp tenderness, visual changes, cadena, bowel/bladder changes, weight changes or other complaints. Last visit supportive care, see derm, see GI, biotene products, follow up with ortho for L CTS release fall 2017, on cardizem per PCP/ok to increase for winter, raynauds general measures, wear heated hand glove liners, for flares take prednisone ashanti, f/u ENT for TMJ growth/pain, f/u with PCP/neurology for memory changes, f/u spine/PT, enbrel 50mg sq injection TWICE a week since 08/2015 since SSZ/methotrexate not tolerated, prn heat/ice/otc arthritis creams, unable to wear wrist braces due to thumb pain, f/u with ortho for cts care, correction pain recommendations per pain clinic/PCP, weightbearing exercises/stretching 01/09/19:had a flares of hand pain better with prednisone. S/p L CTS 2weeks and had scar of L index fingertip scar. Still has numbness and tingling of fingers. In OT/PT now. Fingertip split when cold, on cardizem, hand warmers. 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 Back on rheum meds. Whit dots and wart on back of hands. Sees pain clinic. Same neck and low back pain. Reports pain /10. Minimal AM stiffness. Overall mildly uncomfortable but happy with rheum care. No falls/fx/trauma/illness/oral sores/rash/hairloss/jaw pain/dysphagia/epistaxis/hemoptys is since last visit. No adverse effects with meds. No other complaints. Patient denies fever, chills, cp, dyspnea, nausea, vomiting, night sweats, scalp tenderness, visual changes, cadena, bowel/bladder changes, weight changes or other complaints. Last visit supportive care, consult derm, consult GI, start biotene products, follow up with ortho for L CTS release fall 2018, on cardizem per PCP/ok to increase if needed, raynauds general measures, if needed wearing heated hand glove liners, for flares take prednisone ashanti, f/u ENT for TMJ growth/pain, f/u with PCP/neurology for memory changes, f/u spine/PT, enbrel 50mg sq injection TWICE a week since 08/2015 since SSZ/methotrexate not tolerated, prn heat/ice/otc arthritis creams, unable to wear wrist braces due to thumb pain, f/u with ortho for cts care, director long term care pain recommendations per pain clinic/PCP, weightbearing exercises/stretching, 01/17/18:has not missed enbrel. primary care provider started BP medication cardizem. Worsening dry mouth. raynauds stable. Summer2017 wart like bumps on hands/forearms crawl up arms. More numbness of L>R hand, episodes on thighs and abdomen. Due L CTS release fall 2017. Occasional food getting stuck swallowing. Vomits at night/sleeping. Building playground for 2y/o grandson. Reports pain 12/11. Minimal AM stiffness. Does exercises at home. Overall mildly uncomfortable but happy with rheum care. No falls/fx/trauma/illness/oral sores/rash/hairloss/jaw pain/dysphagia/epistaxis/hemoptys is since last visit. No adverse effects with meds. No other complaints. Patient denies fever, chills, cp, dyspnea, nausea, vomiting, night sweats, scalp tenderness, visual changes, cadena, bowel/bladder changes, weight changes or other complaints. Last visit supportive care, on cardizem per PCP/ok to increase if needed, start raynauds general measures, start wearing heated hand glove liners, for flares take prednisone ashanti, f/u ENT for TMJ growth/pain, f/u with PCP/neurology for memory changes, f/u spine/PT, enbrel 50mg sq injection TWICE a week since 08/2015 since SSZ/methotrexate not tolerated, prn heat/ice/otc arthritis creams, unable to wear wrist braces due to thumb pain, f/u with ortho for cts care, director long term care pain recommendations per pain clinic/PCP, weightbearing exercises/stretching 05/10/17:reports 6/10 mid-lower back, bilateral hands/fingers, neck, constant, aching. Minimal AM stiffness. here for raynaud's ulcer on her left hand middle digit by PIP started last week. Fingers/toes painful and cold for last few months. Was on coreg, but PCP stopped med and started cardizem last week. Worse with band-aid. Has not tried heated gloves. Has not missed enbrel. Sees pain clinic, last injections did not help. Overall mildly uncomfortable but happy with rheum care. No falls/fx/trauma/illness/oral sores/rash/hairloss/jaw pain/dysphagia/epistaxis/hemoptys is since last visit. No adverse effects with meds. No other complaints. Patient denies fever, chills, cp, dyspnea, nausea, vomiting, night sweats, scalp tenderness, visual changes, cadena, bowel/bladder changes, weight changes or other complaints. Last visit supportive care, for flares take prednisone ashanti, f/u ENT for TMJ growth/pain, f/u with PCP/neurology for memory changes, f/u spine/PT, enbrel 50mg sq injection TWICE a week since 08/2015 since SSZ/methotrexate not tolerated, prn heat/ice/otc arthritis creams, unable to wear wrist braces due to thumb pain, f/u with ortho for cts care, correction pain recommendations per pain clinic/PCP, weightbearing exercises/stretching 04/02/17:reports pain to lower back into right pain, 7/10 constant ache. Had xrays of L wrist/hand showing prior fracture, she does not recall prior trauma. Has not missed enbrel twice a week injections. Overall mildly uncomfortable but happy with rheum care. No falls/fx/trauma/illness/oral sores/rash/hairloss/jaw pain/dysphagia/epistaxis/hemoptys is since last visit. No adverse effects with meds. No other complaints. Patient denies fever, chills, cp, dyspnea, nausea, vomiting, night sweats, scalp tenderness, visual changes, cdaena, bowel/bladder changes, weight changes or other complaints. 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 minimal AM stiffness. Not seen since 12/2015. Had illness 07/2016 but did not see PCP. Did hold 3 enbrel injections. Afraid to hold enbrel too long due to fear of getting a bad joint pain flare. Still very tired/exhausted since illness. Joint pain better with twice a week enbrel. Had severe jaw pain, went to ED twice, not helpful. Now with right chest bone pain lately. Does well with steroids. No steroids since last OV. Overall doing ok and happy with care. No falls/fx/trauma/illness/oral sores/rash/hairloss/jaw pain/dysphagia/epistaxis/hemoptys is since last visit. No adverse effects with meds. No other complaints. Patient denies fever, chills, cp, dyspnea, nausea, vomiting, night sweats, scalp tenderness, visual changes, cadena, bowel/bladder changes, weight changes or other complaints. Last visit supportive care, f/u ENT for TMJ growth/pain, f/u with PCP/neurology for memory changes, f/u spine/PT, enbrel 50mg sq injection TWICE a week since 08/2015 since SSZ/methotrexate not tolerated, prn heat/ice/otc arthritis creams, unable to wear wrist braces due to thumb pain, f/u with ortho for cts care, correction pain recommendations per pain clinic/PCP, weightbearing exercises/stretching 12/16/15:reports had injection with pain mgt RLE sciatica better, but now has pain coming from Right SI joint. Fell last week RLE gave out, fell on buttocks. Will see pain clinic for further injections. Used to have neck pain, better now. Approved for enbrel twice a week in 08/2015. Has not missed enbrel. Low back pain 12/11. Minimal AM stiffness. TMJ better. Had eye exam last week. Blurry R eye off and on. Will f/u with eye exam again soon. Able to work 3 good hrs a day. Built screen around front porch and back deck area by herself. Numbness and tingling of hands ok. Still has some memory changes. Unsure what vit D dose she is taking or if she completed BMD yet. Overall doing ok and happy with care. No fx/trauma/illness/oral sores/rash/hairloss/jaw pain/dysphagia/epistaxis/hemoptys is since last visit. No adverse effects with meds. No other complaints. Patient denies fever, chills, cp, dyspnea, nausea, vomiting, night sweats, scalp tenderness, visual changes, cadena, bowel/bladder changes, weight changes or other complaints. Last visit supportive care, consult ENT for TMJ growth/pain, f/u with PCP/neurology for memory changes, f/u spine/PT, scheduled for emg/xrays, enbrel 50mg sq injection once a week (increase twice a week if approved since SSZ/methotrexate not tolerated), prn heat/ice/otc arthritis creams, unable to wear wrist braces due to thumb pain, f/u with ortho for cts care, correction pain recommendations per pain clinic/PCP, weightbearing exercises/stretching See notes 07/14/20-08/12/15 for details on prior visits 08/12/15:had EMG with mild CTS. More memory changes lately. Had good response with prednisone for 1-2weeks. Has not missed enbrel. Adverse effects with SSZ and methotrexate/no response. Reports 5/10 lower back, constant. Minimal AM stiffness. More b/l leg cramps at night. Not better with increase of neurontin. Noticed swelling of L TMJ area/painful lump. Chronic memory changes, did not remember phone call about results (and difficulty remembering results discussed at this OV at the end of OV.) Has not seen neurology. Back pain better with injections. Overall doing ok and happy with care. No falls/fx/trauma/illness/oral sores/rash/hairloss/jaw pain/dysphagia/epistaxis/hemoptys is since last visit. No adverse effects with meds. No other complaints. Patient denies fever, chills, cp, dyspnea, nausea, vomiting, night sweats, scalp tenderness, visual changes, cadena, bowel/bladder changes, weight changes or other complaints. Last visit supportive care, start trial pred ashanti, consult spine/PT, check emg/xrays, enbrel 50mg sq injection once a week, prn heat/ice/otc arthritis creams, unable to wear wrist braces due to thumb pain, f/u with ortho for cts care, correction pain recommendations per pain clinic/may consider increasing neurontin, weightbearing exercises/stretching 06/11/15 HPI: here for eval Moving care closer to home. Neck pain started mid 20s Back pain started Finger pain started 30years ago 2005 developed R foot numbness, spinal cord pinch, same still -dx by Lyndsay approx 5 years ago Pain c/o pain and stiffness, 11/11, tailbone constant ache, increse stiffness with sitting numbness hands when driving Sees pain clinic in [place] c/o left neck pain; states bilat arms buzzing and go numb constant 10/28/14 1. Anklylosing spondylitis / axial spondyloarthritis Sero-negative History of treatment with hydroxychloroquine and methotrexate without benefit Had unknown reaction to sulfasalazine more back days on humira 2006 Currently on Enbrel 2006-present Difficult to assess which symptoms are due to inflammatory disease and which are due to degenerative disease and / or chronic pain issues 2. Cervical spondylosis/DDD 3. Lumbar spondylosis/DDD 4. Osteoarthritis 5. Chondrocalcinosis of R knee Post-traumatic 6. Chronic pain She is being treated aggressively for this. 7. Osteoarthritis hips 05/16: R KATIA, 09/15: L KATIA 8. ? Vascular insufficiency 9. Palpitations Mild tachycardia 10. Hypertension 11. Syncope Cardiology and Neurology evaluations done 12. Nodules on fingers 13. Right wrist painMay be tendinous Appears to be benign RHEUM. ROS: Joint pain: yes -neck, low back, fingers Joint swelling: fingers Am stiffness: yes Low back pain: yes- back injections, completed PT Enthesopathy/Dalton's/heel/plant ar tenderness: s/p R cts 1990s Alpecia, patchy: yes 10years Eye inflammation: contacts, 2009 R iritis (has had more than once);last eyes exam 06/2014 [facility]: dry eyes/mouth GI problems-diarrhea/bleeding/IBD/Gl uten intolerence/Dysphagia: gerd Raynaud's phenomenon/digital ulcers: yes- white/red Organ inv-Serositis: childhood asthma Lung disease/ILD:childhood asthma Fatigue: yes, sleeps 8hr/night PMR/GCA ROS: negative Other ROS:The remainder of the review of systems is negative. 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 [employer] home for poor Industrial toxic exposures:no TESTS: Outside 02/11/24 low wbc 3.8, hgb 11.3, mag 1.7;high cholesterol 246, hgba1c 7;normal cmp, plts 217, tsh 2.39; 12/25/23 high crp 1.1 (NL0-0.744mg/dL), glucose 140, vitamin b12>1500;low hgb 10.6normal cmp, potassium 3.8, creat 0.83, calcium 9, alkaline phosphatase 69, ast 15, alt 12, vitamin D 53.8, wbc 6.9, plts 317;negative quantiferon tb; [facility] 07/03/23 normal cmp, potassium 4.1, creat 0.81, glucose 71, calcium 9, alkaline phosphatase 74, ast 18, alt 16, crp 0.2 (NL0-0.744mg/dL), vitamin D 54.4, cbc, wbc 5.6, hgb 11.8, plts 272, esr 30 (normal 0-30mm/hr) 05/07/23 last dose cimzia 06/27/23 restart enbrel [facility] 02/16/23 normal vitamin D 58.2, glucose 85, crp 0.1 (normal 0-0.744mg/dL), esr 17, wbc 5, hgb 12.1, plts 230, cmp, creat 0.77, calcium 9, 01/2023 hip xrays-Post arthroplasty changes with intact bilateral hip prostheses Outside 12/2022 neck xrays-Multilevel facet arthropathy. Anterolisthesis of C3 on C4 measuring 2 mm, C4 on C5 measuring 2 mm, and C7 on T1 measuring 3 mm. Multilevel disc related degenerative disease most prominent at C5-6 and C6-7. 12/2022 shoulder xrays-Severe AC joint and glenohumeral joint arthritis. [facility] 11/07/22 low hgb 11.6;normal cmp, glucose 130, potassium 4, creat 0.94, calcium 9.2, alkaline phosphatase 5, ast 12, alt 18, vitamin D 53.2, esr 9 (NL0-30mm/hr), crp 0.1 (NL0-0.744mg/dL), wbc 7.9, plts 283; [facility]; 07/06/22 left hand xrays- advanced degenerative joint disease throughout the wrist with appearances most compatible with advanced osteoarthritis associated with with chondrocalcinosis. Osteoarthritis superimposed upon an underlying inflammatory arthropathy is possible given extensive abnormality involving wrist. Milder osteoarthritis within several of the DIP. [facility] 08/14/22 high vitamin b12>1500pg/mL;normal cmp, potassium 4.1, creat 0.84, glucose 74, calcium 8.8, alkaline phosphatase 47, ast 13, alt 20, crp<0.1 (0-0.74mg/dL), vitamin D 56.7, wbc 6.1, hgb 12.2, plts 252, esr 10 (NL0-30mm/hr);negative quantiferon tb; [facility] 11/18/21 borderline creat 1.03;NL rest of cmp, potassium 4.3, calcium 9.1, alkaline phosphatase 66, ast 17, alt 17, glucose 90, crp 0.5 (NL0-0.744mg/dl), vitamin D 64.5, wbc 5.3, hgb 11.8, plts 223, esr 18 (NL0-30mm/hr); 01/19/21 high glu 172;borderline esr 20 (25);NL crp 0.6 (0.9), cbc, cmp; outside 11/09/20 high creat 1.06;NL rest of cmp, wbc 4.9, hgb 12.8, plts 265; 07/14/20 high gluc 178, crp 0.9 (0.4), esr 25 (17);low vitamin B12-498 (403);NL vitamin D 40.8, rest of cbc, cmp;negative hepatitis panel, quantiferon tb; 01/12/20 normal cbc, cmp, esr 17 (25), crp 0.4, vitamin D 50.6, vitamin b12-403; 07/24/19 low vitamin b12-428;NL cbc, cmp, gluc 121, esr 25 (23), crp 0.6 (1), vitamin D 72.2; 01/09/19 high esr 23 (15), crp 1 (0.2);low vitamin b12-243;NL rest of cbc, cmp, vitamin D 71.8 (81.4), creatinine 0.87 (1.2), cmp, cbc, uric acid 4.8;negative quantiferon tb; 01/17/18 high creatinine 1.2 (0.99), vitamin D 81.4 (64.5);NL rest of cbc, cmp, esr 15, crp 0.2;negative preston ifa, alek, quantiferon tb; 04/02/17 high potassium 5.2, creatinine 0.99 (0.9);NL rest of cbc, cmp, esr 17 (24), crp 0.2, vit D 64.5; [facility] 08/04/16 low wbc 4.3;NL hgb 12.6, plts 231, esr 26 (NL0-30mm/hr);cmp, creatinine 0.96, calcium, 9.1, ast 14, alt 19, crp 0.4 (NL0-0.74mg/dL), vit D 37.5;negative quantiferon tb [facility] 08/2016 L wrist xrays-1. No definitive acute osseous abnormalities.2. Suspect mild soft tissue swelling in the dorsum of the wrist.3. Degenerative and old posttraumatic changes as noted above. 4. Consider MRI of the wrist to further evaluate if there remains concern for an acute process.Degenerative changes of the first carpometacarpal articulation. Well-corticated ossific densities are identified adjacent to the ulnar styloid possibly related to remote trauma. Minimal protuberance adjacent to the physeal scar of doubtful clinical significance. This could also relate to remote trauma. Well-corticated ossific densities noted adjacent to the radial styloid as well with degenerative changes of the radiocarpal joint. If there is persistent pain in the anatomical snuffbox, recommend followup films in 7-10 days 08/12/15 TMJ xrays-Both mandibular condyles show normal excursion in the open and closed mouth views with the left condyle only partially occupying the condyloid fossa. Mild irregularity of the articular surface of the right mandibular condyle. 06/11/15 high esr 23(26);NL crp 0.3, cbc, cmp, vit D 37; 06/11/15 cervical spine xrays-Degenerative changes of the cervical spine as detailed above.Endplate degenerative changes most pronounced at C5-6.Neural foraminal narrowing most pronounced at C5-6 and C6-7 on the right 10/28/14 NL lfts, cbc, creat 1.01, crp 0.5; 10/2014 R wrist xrays-There are postsurgical changes of previous trapezium resection. Appearance is unchanged from 10/08/09. A few small residual bone fragments are noted in the area of resection. 01/2014 negative RF 10 09/18/13 low hgb 08/2013 negative PRESTON, lupus anticoag panel;NL c3, c4; 04/2013 hip xrays-significant progression joint space loss bilaterally, disruption of the subchondral plates, enlargement of the left acetabular roof cyst and surrounding sclerosis and development of multiple right femoro- acetabular cysts. There also has been slight increase in facet sclerosis about the lower lumbar spine. An incidental finding is a small focus of calcification in the deep subcutaneous tissues of the proximal right thigh which may represent an area of fat necrosis and not felt to be clinically significant.IMPRESSIONSIGNIFICANT PROGRESSION OF BILATERAL DEGENERATIVE ARTHRITIS OF THE HIP JOINTS IN COMPARISON WITH AN EXAMINATION OF OVER 3 YEARS AGO. 03/2013 high esr 26; 11/2010 lumbar xrays-Lumbar spine: There is severe disk height loss at L5-S1 with endplate spurring, slightly progressed from the 2007. The remainder of the disks are relatively maintained. Small endplate spurs at L2-3 and L3-4. Multilevel mild facet joint degenerative changes. Vertebral body heights and alignment normal. 11/2010 hip xrays-Limited view of the pelvis incompletely demonstrates severe superolateral joint space narrowing of the left hip with a prominent acetabular subchondral cyst, more advanced compared to 10/08/2009. Sacroiliac joints are maintained. 11/2010 Thoracic spine xrays: There is disc height loss in the lower thoracic spine with endplate osteophytes, moderate to severe at T11-12, unchanged. Vertebral body heights are preserved. Limited view of the cervical spine again demonstrates mild C3 on C4 and C4 on C5 anterolisthesis, unchanged. Alignment is otherwise anatomic. IMPRESSION:1. NO ACUTE ABNORMALITY. 2. MARKED DEGENERATIVE DISC DISEASE L5-S1. 3. MODERATE MARKED DEGENERATIVE DISEASE T11-12.4. DEGENERATIVE ARTHRITIS IN BOTH HIPS 09/2007 negative hla b27 07/2007 negative rf, ccp, preston ifa, [facility], dsdna<12, hepatitis panel Additional pertinent test results reviewed in medical chart PHYSICAL EXAM reviewed vitals from last visit BP 112/74 Pulse 81 Wt 205 lb 6.4 oz (93.2kg) SpO2 94% LMP 05/12/2006 General Appearance: WD/WN, NAD. Appropriate grooming. Very pleasant. Slender. Sitting at home, denies SI/HI, very uncomfortable, speaks in full sentences without distress SKIN: No rash, no psoriasis, no purpura, no ulcers, no skin thickening/tightness, no telangiectasias. HEENT: No patchy alopecia, normal temporal artery pulsations, non-tender, scalp non-tender, no conjunctival injection or icterus, no oral ulcers, no thrush, normal nasal mucosa, no sinus tenderness, normal TM's. Yes contacts, fair dentition NECK: no visible thyromegaly or LAD. EXTREMITIES: No clubbing,discoloration,sclerodact yly, periungual erythema, digital ulcers, nail pitting, edema, varicosities. MUSCULOSK: s/p b/l THR, s/p L CTS, s/p L index fingertip scar tissue removed No joint deformities, no rheumatoid nodules, calcifications or tophi. No SI tenderness, no nettie's tenderness, no heel/plantar tenderness, lumbar flexion full, 3inches neck to wall Back flexion 12inches [place] JTS:R 2nd/3rd MCPs, R 2nd/3rd fingers, R>L hands/wrists, two cysts on L wrist Tend. JTS:2nd/3rd MCPs, R 2nd/3rd fingers, R>L hands/wrists, lumbar back, cervical area/limited range of motion, less R chest wall/bone pain, R SI joint area;decreased range of motion of neck and back due to pain;no warmth/erythema No clinical synovitis in the DIP's, PIP's, MCP's, wrists, elbows, shoulders, knees, ankles, midfoot, or toes. no knee effusions bilateral. Shoulder exam:full range of motion; no warmth/erythema Hip rom without pain LIMITATION of Motion of Joints: yes IMPRESSION/DIAGNOSIS:03/29/24 M45.0 Ankylosing spondylitis of multiple sites in spine (HCC) (primary encounter diagnosis) M79.641, M79.642 Bilateral hand pain M11.89 Pseudogout involving multiple joints M54.42, M54.41, G89.29 Chronic bilateral low back pain with bilateral sciatica E79.0 Hyperuricemia R25.2 Leg cramps M54.2 Cervicalgia R20.2 Paresthesia of both hands R70.0 Elevated sed rate Z79.899 Long-term use of high-risk medication I73.00 Raynaud's disease without gangrene R79.89 Elevated serum creatinine M11.29 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, multiple sites M15.3 Secondary osteoarthritis of multiple sites M53.3, G89.29 Chronic sacroiliac joint pain M54.50, G89.29 Chronic bilateral low back pain without sciatica M65.941 Synovitis of right hand M25.60 Joint stiffness of multiple sites M25.432 Wrist swelling, left 64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[employer] with PMH:venous insufficiency, htn, s/p tubal ligation, palpitations, 05/2013 s/p R THR, 09/2013 s/p L THR, s/p R cts 1990s, 2009 R iritis (has had more than once), gerd, childhood asthma, uterine fibroids presents Neck pain started mid 20s, Back pain started , Finger pain started 30years ago 2005 developed R foot numbness, spinal cord pinch, same still, diagnosed with 2009, has numbness and tingling of hands/arms with certain positions, chronic neck/back pain/limited range of motion, djd on imaging, high esr, limited neck to wall/limited spinal flexion, negative hla b27, has findings with history of seronegative inflammatory arthritis/ankylosing spondylitis, repeated R eye iritis, djd, cervicalgia, lumbago, possible cts, here with L TMJ bony growth/painful, chronic memory changes, chronic back pain, R SI joint area, history of costochondritis, raynaud's symptoms, numbness of L>R hand, episodes on thighs and abdomen, more dry mouth, food getting stuck swallowing, had a flares of hand pain better with prednisone. S/p L CTS 2weeks and had scar of L index fingertip scar. Still has numbness and tingling of fingers. had SI low steroid injections improved bilaterally ankle swelling and made it easier for her to get up out of bed. The ankle swelling not improved with oral prednisone. [place] worse when she ran out of acyclovir from neurology. Had L cts release 02/2019 with minimal response. Taking enbrel. had 3RFAs for low back pain, not sure if working/helping yet. TMJ better with prednisone. Feet/ankles R>L swelling from CCB, but stopped and no more swelling. raynauds white fingers/same. S/p L CTS release. no response with last neck injection. Falls occasionally due to balance. Difficulty holding phone. No response with voltaren. Had dexamethasone but kept her up at night for days, with mild response with hands. Tried over the counter supplement for cramps. TMJ stable. Oral sores better. Did not have ganglion cysts removed due fo pandemic.elavil helps her sleep. More raynauds worse with A/C. Better with gloves. More R index deviated. L 5th finger chronically flexed, surgery for finger 11/2020. Now has diabetes. had COVID19 infection end of 2020, no antibody infusion, treated with steroids,Had Lost 60lbs. 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 No COVID, flu vaccine. Stopped advil since it gave her headaches. Taking tylenol. back injection of steroids in the past. Was off enbrel for a months due to insurance and felt worse and more pain all over.in past Left forearm wound, infected 2days later when to ED, treated with oral antibiotics, tetanus injections, xrays negative for fracture. Fall a lot, due to crystals brain. Seeing neurology. 03/04/23 recent oral steroids. Saw shoulder injections 12/2022 and 04/06/23 left wrist steroid injections with some response. 70% improvement from cimzia. Saw ortho offered cleaning left wrist and fusion but patient declined. limited exercise due to pain. taking flexeril, gabapentin, elavil, off vitamin D script, enbrel (but insurance only approves 50mg sq injection once a week even if patient was better with twice a week for years) just started recent oral steroids. 3-4months ago eye exam, worsening cataracts.. Raynauds better with warmer weather, no digital ulcers. Fell a few times. 01/18/24 left shoulder injection 12/25/23 seen for neck pain 12/25/23 high crp 1.1 (NL0-0.744mg/dL), glucose 140, vitamin b12>1500;low hgb 10.6normal cmp, potassium 3.8, creat 0.83, calcium 9, alkaline phosphatase 69, ast 15, alt 12, vitamin D 53.8, wbc 6.9, plts 317;negative quantiferon tb; 11/30/23 had right shoulder injection [facility] 07/03/23 normal cmp, potassium 4.1, creat 0.81, glucose 71, calcium 9, alkaline phosphatase 74, ast 18, alt 16, crp 0.2 (NL0-0.744mg/dL), vitamin D 54.4, cbc, wbc 5.6, hgb 11.8, plts 272, esr 30 (normal 0-30mm/hr) 05/07/23 last dose cimzia 06/27/23 restart enbrel 50-75% improvement from enbrel, pain in R hand now claw like, unable close and flatten, L>R hips, low back, legs cramp . More neck crunching, left hip popping(10years since hip surgery). taking cosentyx, gabapentin 300mg 5per day, flexeril, elavil, biotin, prilosec. Better with recent oral steroids x3 with good response. stable eye exam. Raynauds better with warmer weather, no digital ulcers. Outside 03/26/24 low hgb 11.1;high glucose 142, vitamin b12>1500;normal rest of cbc, cmp, vitamin D 54.4; Outside 02/11/24 low wbc 3.8, hgb 11.3, mag 1.7;high cholesterol 246, hgba1c 7;normal cmp, plts 217, tsh 2.39; Insurance denied enbrel. Started cosentyx 6weeks ago. 03/21/24 reports The fingers of my right hand are becoming difficult to straighten, the middle one is worse, it really hurts too. Two weeks ago I had two shots between my shoulder blades to stop the pain from my neck shooting down my arm That finger and the index finger are also becoming twisted. If I remain in one position for too long, all my muscles and joints feel as if they ve turned into cement, I have to work out the kinks before I can move. Once I bent over and could not stand back up, 10-30% improvement from cosentyx vs. 50-75% improvement from enbrel. limited exercise due to pain. Fingers and DIP and swelling. Chronic current pain in hands and fingers twisting, neck, hips (THR 11yrs ago). Reports pain 10. Has 30 min minimal AM stiffness. Feels safe at home. Has enough food, supplies and medications. Overall uncomfortable but happy with rheum care. Will complete workup for reported symptoms = supportive care, start colchicine/notify office if not tolerated, improved with gabapentin/increase to 600mg 3-4caps per day, check xrays/US of hands to clarify if pain is from pseudogout/inflammatory arthritis/osteoarthritis, may start methotrexate and folic acid if symptoms persist/worsens, restart fall precautions, see neurology for dizziness/crystals care, see primary care provider for depression care/concern about low glucose, flexeril prn, prn neurontin, see derm, see GI, biotene products, follow up with ortho for s/p L CTS care/improved with injections/may try for shoulder/R hand, on cardizem per PCP/ok to increase for winter, raynauds general measures, wear heated hand glove liners, for flares take prednisone [place], f/u ENT for TMJ growth/pain, f/u spine/PT, tolerating cimzia as instructed, OFF due to insurance enbrel 50mg sq injection TWICE a week since 08/2015, since SSZ/methotrexate not tolerated, did discuss alternative biologics if high APRs, prn heat/ice/otc arthritis creams, unable to wear wrist braces due to thumb pain, 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 RECOMMENDATION/PLAN: [facility] on 03/29/24 XR HAND GENERAL 3V PA/LAT/OBL BILATERAL US HAND/WRIST SYNOVIAL SCREEN RIGHT US HAND/WRIST SYNOVIAL SCREEN LEFT Reviewed labs/tests with patient Provided printed info 03/29/24 check cmp, cbc, esr, crp, vit D every 3months, printed orders, yearly quantiferon tb Modified03/29/24 EAGLE 0, pain 80%;01/17/24 EAGLE 0, pain 80%;04/06/23 EAGLE 0, pain 70%;08/28/22 EAGLE 0, pain 70%;11/11/21 EAGLE 0, pain 70%;01/19/21 EAGLE 0, pain 60%;07/14/20 EAGLE 0, pain 60-70%;01/12/20 EAGLE 0, pain 80%;07/24/19 EAGEL 0, pain 70%;01/09/19 EAGLE 0, pain 60%;01/17/18 EAGLE 0, pain 70%;05/10/17 EAGLE 0, pain 50-60%;04/02/17 EAGLE 0, pain 70%;09/28/16 EAGLE 0, pain 50-70%;12/16/15 EAGLE 0, pain 70%;08/12/15 EAGLE 0, pain 50%;06/11/15 EAGLE 0.5, pain 60%; 08/12/15 precert increase of enbrel to twice a week May apply over the counter arthritis cream (biofreeze, icy hot, asper cream, tiger balm, capsacin, etc.) to painful joints up to four times a day. Avoid contact with eyes. May take ES acetaminophen 500mg every 4-6hours for joint pain. Do not exceed 3000mg /day. Decrease stress Improve sleep May apply heat/ice 20minutes on and off to areas of pain Avoid aggravating triggers If needed, may take Calcium 1000mg daily with food in DIVIDED doses If labs normal, Vitamin D 4000 International Units daily or script with food Vitamin b12 as instructed Neurontin/gabapentin as instructed OFF cardizem May apply nitrobid for raynauds as instructed, may cause headaches Start colchicine once to twice a day if tolerated, may cause diarrhea OFF enbrel due to insurance denial Consentyx sq injection as instructed Please hold consentyx if on antibiotics or if you have any signs/symptoms of infection. 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 -Vitamin D supplementation recommended, optimal dose is the dose necessary to achieve Vitamin D 25-OH blood level in range of 40-60 ng/mL. (Vitamin D supplement in international units, is the dose necessary to achieve a Vitamin D 25-OH blood level in range of 40-60 ng/mL). -Recommended daily dose of calcium: 1200mg total a day in divided doses. Calcium from dietary sources, if not sufficient, or if with h/o calcium nephrolithiasis would recommend Calcium Citrate supplement, as it is recommended to avoid caclium carbonate products, which as main dietary calcium source. The after visit summary has information on dietary calcium and instructions on reading calcium label and converting the %DV to mg. -Regular weight-bearing and muscle-strengthening exercise -Avoidance of tobacco smoking, excessive alcohol intake and excessive caffeine intake. -Fall and fracture precautions -Continued regular dental follow up visits and good dental/gum care Stressed the importance of following up with PCP and specialists for his/her chronic diseases, health, CV, and cancer screening and continued care. Will follow disease activity/progression and adjust therapeutic regimen to disease activity and severity. Discussed medication dosage, usage, goals of therapy, and side effects. Available test results were reviewed An additional 20 minutes were spent outside of the patient visit to review records. Additional time spent with the patient to discuss their questions. Additional time spent with the patient devoted to discussing treatment strategy, planning, and implementation. Discussed findings, impression and plan with patient. Patient understands above plan; questions asked and answered. Patient agrees to plan as noted above. The above reflects my independent exam and review. I saw and examined the patient myself personally. Parts of the HPI, ROS, exam and impression/plan may have been copied from my personal previous clinical note and remain pertinent. Current changes have been made and documented today. Other parts or data were deleted if not relevant for today. Plan as outlined. Medical decision making was high complexity due to patient's, multiple symptoms, multiple advancing diseases.Total time spent on this visit, with more than 50% of time spent in video & audio (virtual) or phone or face to face with patient, in consultation, and in addition to Counseling and Coordination of Care, explanation of diagnosis, and planning of further management, I spent a total of 30 minutes 8:08-8:38AM on the date of the service which included preparing to talk with the patient, video & audio (virtual) or phone or [id number] patient care, completing clinical documentation, obtaining and/or reviewing separately obtained history, performing a medically appropriate examination, counseling and educating the patient/family/caregiver, ordering medications, tests, or procedures, communicating with other HCPs (not separately reported), independently interpreting results (not separately reported), communicating results to the patient/family/caregiver and care coordination (not separately reported) Follow up 6months, earlier if needed Recommendations to share with referring physician/Primary care physician : Dear Dr. Garcia : I had the pleasure of seeing your patient, . I have enclosed a copy of my clinic note with my assessment and recommendations for this patient. Recommendations for your consideration as you deem necessary: -Continuous follow up with Primary care physician for cardiovascular disease prevention, for age appropriate cancer screening and routine health maintenance and wellness, and infection precautions and age appropriate immunization recommended. Thank you for allowing me to participate in the care of your patient. Eugenio Ellis MD I will relay my findings and recommendations to the physician requesting the consult by letter/electronic shared medical records. cc Rafaela Umana MD;Dr.Jennifer Garcia [id number] [facility] [id number] Answers submitted by the patient for this visit: Review of Systems Rheumatology (Submitted on 03/28/2024) Fever : No Recent unintentional weight change: No Eye pain: Yes Vision Disturbance: Yes Eye Dryness: Yes Nosebleeds: No Sores in your mouth: Yes Trouble Swallowing: No Dry Mouth: Yes Chest pain: No Leg Swelling: No A cough: No Shortness of breath: No Pain with breathing: No Heartburn: Yes Abdominal pain: No Diarrhea: No Black tarry stools: No Blood in urine: No Pain or burning with urination: No Joint pain or stiffness: Yes Muscle weakness: Yes Muscle aches: Yes Joint swelling: Yes Morning Stiffness in Joints: Yes A rash: No Skin Color Changes: No Hair Loss: Yes Nail Changes: No Headaches: Yes Numbness: Yes Memory Loss: Yes Swollen Glands: No MYCHART AMBULATORY VISIT INTAKE QUESTIONNAIRE Question 03/27/2024 7:23 AM EDT - Filed by Patient 01/16/2024 2:43 PM EDT - Filed by Patient Has the patient had unintentional weight loss or gain? Yes: Provider notified Do you have concerns about personal safety or safety in the home? No Has the Patient Had 2 Falls in the Last Year or 1 Fall with Injury or Currently Using an Ambulatory Assistive Device (Walker, Cane, Wheelchair, Crutches, etc.) Yes, Patient High Risk for Falls, Notify provider if applicable Yes, Patient High Risk for Falls, Notify provider if applicable Are you having pain associated with your visit today? Yes Yes What is your Pain Level? 9 8 Pain Location Hand-Right Neck Description Aching Aching Cramping Cramping Numbness Radiating Pulsating Sharp Sharp Sore Shooting Stiffness Sore Tenderness Stabbing Throbbing Stabbing/Not Incision Tightness Stiffness Throbbing Tightness Tingling Duration Amount of Time 12 18 Duration Units Hours Hours Frequency Continuous Intermittent Intervention/Comfort measure Medication Medication Heat Distractions Massage Positioning Positioning Rocking/holding Rocking/holding Comments Recent mri, no follow up yet REDUCING YOUR RISK OF FALLING DURING AN MEDICAL APPOINTMENT Question 03/27/2024 7:23 AM EDT - Filed by Patient 01/16/2024 2:43 PM EDT - Filed by Patient Fall Prevention Instructions Acknowledged Yes Yes [facility] MYCHART ADDITIONAL DEMO Question 03/27/2024 7:24 AM EDT - Filed by Patient Is this visit related to an accident, other than Workers' Compensation? No Is this visit related to Workers' Compensation? No Do you need an cable wirer? No [facility] MYCHART ZOOM MESSAGE Question 03/28/2024 2:45 PM EDT - Filed by Patient Install Zoom I have Zoom installed [facility] PROMIS CAT V2.0-PHYSICAL FUNCTION-28 DAYS Question 03/28/2024 2:46 PM EDT - Filed by Patient 01/16/2024 2:45 PM EDT - Filed by Patient PROMIS Physical Function T-Score (range: 10 - 90) 35 (moderate dysfunction) Abnormal 33 (moderate dysfunction) Abnormal PROMIS Physical Function Percentile (range: 0 - 100) 7 4 [facility] PROMIS CAT V1.0 - FATIGUE-28 DAYS Question 03/28/2024 2:46 PM EDT - Filed by Patient 01/16/2024 2:46 PM EDT - Filed by Patient PROMIS Fatigue T-Score (range: 10 - 90) 66 (moderate) Abnormal 64 (moderate) Abnormal PROMIS Fatigue Percentile (range: 0 - 100) 5 8 [facility] PROMIS CAT V1.1-PAIN INTERFERENCE-28 DAYS Question 03/28/2024 2:47 PM EDT - Filed by Patient 01/16/2024 2:47 PM EDT - Filed by Patient PROMIS Pain Interference T-Score (range: 10 - 90) (range: 10 - 90) 69 (moderate) Abnormal 70 (moderate) Abnormal PROMIS Pain Interference Percentile (range: 0 - 100) 3 2 MYC RAPID 3 Question 03/28/2024 2:49 PM EDT - Filed by Patient 01/16/2024 2:48 PM EDT - Filed by Patient Dress yourself, including typing shoelaces and doing buttons? With MUCH difficulty UNABLE to do Get in and out of bed? With SOME difficulty With SOME difficulty Lift a full cup or glass to your mouth? With MUCH difficulty With SOME difficulty Walk outdoors on flat ground? With SOME difficulty With SOME difficulty Wash and dry your entire body? With SOME difficulty Without ANY difficulty Bend down to roll picker clothing from the floor? With MUCH difficulty With MUCH difficulty Turn regular faucets on and off? With SOME difficulty With MUCH difficulty Get in and out of a car, bus, train, or airplane? With SOME difficulty With MUCH difficulty Walk tow miles or three kilometers, if you wish? UNABLE to do UNABLE to do Participate in recreational activities and sports as you would like, if you wish? UNABLE to do UNABLE to do Get a good night's sleep? With MUCH difficulty With SOME difficulty Deal with feelings of anxiety or being nervous? With SOME difficulty With MUCH difficulty Deal with feelings of depression or feeling blue? With SOME difficulty With SOME difficulty RAPID 3 Pain Level 8 8 RAPID 3 HOW DOING OVERALL 9 7.5 RAPID 3 Functional Status Score (range: 0 - 10) 5.67 6 PAIN LEVEL (range: 0 - 10) 8 8 Global Estimate (PTGE) (range: 0 - 10) 9 7.5 RAPID 3 CUMULATIVE SCORE (range: 0 - 30) 22.67 21.5 RAPID 3 Weighed Score (range: 0 - 10) 7.56 (High severity ) Abnormal 7.17 (High severity ) Abnormal Weighed Score Percentage Change Compared to Last (range: -500 - 500) 5.44 15.27 MYC DOCUMENT/IMAGE UPLOAD Question 03/28/2024 2:54 PM EDT - Filed by Patient Photo ID Upload from 03/28/2024 2:54 PM EDT If there are images or documents you'd like to share with your provider during your visit, you may upload up to a total of five files. For body images use the pencil icon to label your image. When labeling the image, please use the following format: The name of the body part followed by the side. For example, Back of Right Forearm or Lower Left Leg. MYC PROMIS 10 ADULT SHORT FORM V1.0 GLOBAL HEALTH Question 01/16/2024 2:52 PM EDT - Filed by Patient In the past 7 days In general, would you say your health is: Poor Abnormal In general, would you say your quality of life is: Fair Abnormal In general, how would you rate your physical health? Poor Abnormal In general, how would you rate your mental health, including your mood and your ability to think? Fair Abnormal In general, how would you rate your satisfaction with your social activities and relationships? Good In general, please rate how well you carry out your usual social activities and roles. (This includes activities at home, at work and in your community, and responsibilities as a parent, child, spouse, employee, friend, etc.) Fair Abnormal To what extent are you able to carry out your everyday physical activities such as walking, climbing stairs, carrying groceries, or moving a chair? Moderately Abnormal In the past 7 days In the past 7 days, how often have you been bothered by emotional problems such as feeling anxious, depressed or irritable? Often Abnormal In the past 7 days, how would you rate your fatigue on average? Severe Abnormal In the past 7 days, how would you rate your pain on average? 8 Abnormal PROMIS Adult Short Form-Global Health Score (Physical) (range: 16 - 68) 29.6 (Poor) Abnormal PROMIS Adult Short Form-Global Health Score (Mental) (range: 21 - 68) 36.3 (Fair) Abnormal Myc Promis Gh Physical Score Compared To Last (range: -2 - 3) 3 (WITHIN +/- 5) Myc Promis Gh Mental Score Compared To Last (range: -2 - 3) 3 (WITHIN +/- 5) MYC PROVIDER UNDERSTANDING CURRENT HEALTH RHEUMATOLOGY Question 01/16/2024 2:52 PM EDT - Filed by Patient These questions will help my provider understand my health Agree documented in this encounter [facility] 03-29-2024 Note HNO ID: [id number] Author: EUGENIO ELLIS MD Service: ? Author Type: Physician Type: Progress Notes Filed: 03/29/2024 18:39 Note Text: THIS IS A AMBULATORY VIRTUAL VISIT Patient has verbally agreed/consented to this virtual encounter, not originating from a related Evaluation AND Management service provided within the previous 7 days. NOTE: Cannot be used if an Evaluation AND Management service or procedure is planned within the next 24 hours. I have communicated my name and active licensure. The patient's identity and physical location were verified at the time of this visit. Either the patient or their legal surgical device sales representative has been informed of the risks and benefits of -- and alternatives to -- treatment through a remote evaluation and consents to proceed with the evaluation remotely. It required patient-provider interaction for the medical decision making as documented below. Persons Present: self (in home) Provider: (in office) VIRTUAL VISIT Follow up for Ankylosing spondylitis/CTS/raynauds/joint pain Today's visit 03/29/24:taking cosentyx, gabapentin 300mg 5per day, flexeril, elavil, biotin, prilosec. Better with recent oral steroids x3 with good response. stable eye exam. Raynauds better with warmer weather, no digital ulcers. Outside 03/26/24 low hgb 11.1;high glucose 142, vitamin b12>1500;normal rest of cbc, cmp, vitamin D 54.4; Outside 02/11/24 low wbc 3.8, hgb 11.3, mag 1.7;high cholesterol 246, hgba1c 7;normal cmp, plts 217, tsh 2.39; Insurance denied enbrel. Started cosentyx 6weeks ago. 03/21/24 reports The fingers of my right hand are becoming difficult to straighten, the middle one is worse, it really hurts too. Two weeks ago I had two shots between my shoulder blades to stop the pain from my neck shooting down my arm That finger and the index finger are also becoming twisted. If I remain in one position for too long, all my muscles and joints feel as if they?ve turned into cement, I have to work out the kinks before I can move. Once I bent over and could not stand back up, 10-30% improvement from cosentyx vs. 50-75% improvement from enbrel. limited exercise due to pain. Fingers and DIP and swelling. Chronic current pain in hands and fingers twisting, neck, hips (THR 11yrs ago). Reports pain 8/10. Has 30 min minimal AM stiffness. Feels safe at home. Has enough food, supplies and medications. Overall uncomfortable but happy with rheum care. No falls/fx/trauma/illness/oral sores/rash/hairloss/jaw pain/dysphagia/epistaxis/hemoptys is since last visit. No adverse effects with meds. No other complaints. Patient denies fever, chills, cp, dyspnea, nausea, vomiting, night sweats, scalp tenderness, visual changes, cadena, bowel/bladder changes, weight changes or other complaints. Last visit supportive care, check labs, may start methotrexate and folic acid if symptoms persist/worsens, restart fall precautions, see neurology for dizziness/crystals care, see primary care provider for depression care/concern about low glucose, flexeril prn, prn neurontin, see derm, see GI, biotene products, follow up with ortho for s/p L CTS care/improved with injections/may try for shoulder/R hand, on cardizem per PCP/ok to increase for winter, raynauds general measures, wear heated hand gloveliners, for flares take prednisone [place], f/u ENT for TMJ growth/pain, f/u spine/PT, tolerating cimzia as instructed, OFF enbrel 50mg sq injection TWICE a week since 08/2015 since SSZ/methotrexate not tolerated, did discuss alternative biologics if high APRs, prn heat/ice/otc arthritis creams, unable to wear wrist braces due to thumb pain, 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 3-4months ago eye exam, worsening cataracts.. Raynauds better with warmer weather, no digital ulcers. Fell a few times. 01/18/24 due for left shoulder injection 12/25/23 seen for neck pain 12/25/23 high crp 1.1 (NL0-0.744mg/dL), glucose 140, vitamin b12>1500;low hgb 10.6normal cmp, potassium 3.8, creat 0.83, calcium 9, alkaline phosphatase 69, ast 15, alt 12, vitamin D 53.8, wbc 6.9, plts 317;negative quantiferon tb; 11/30/23 had right shoulder injection [facility] 07/03/23 normal cmp, potassium 4.1, creat 0.81, glucose 71, calcium 9, alkaline phosphatase 74, ast 18, alt 16, crp 0.2 (NL0-0.744mg/dL), vitamin D 54.4, cbc, wbc 5.6, hgb 11.8, plts 272, esr 30 (normal 0-30mm/hr) 05/07/23 last dose cimzia 06/27/23 restart enbrel 50-75% improvement from enbrel, worse pain since late for medication and decreased to once a week. limited exercise due to pain. R 2nd/3rd MCP, R hand swelling. Chronic current pain in R hand now claw like, un (more content not included)... [facility] 03-21-2024 Miscellaneous Notes Last OV: 03/20/2024 Next OV: 04/29/2024 OARRS appropriate: yes Last UDS: 03/20/2024 Pharmacy: [facility] documented in this encounter [facility] 03-21-2024 Telephone encounter Note Last OV: 03/20/2024 Next OV: 04/29/2024 OARRS appropriate: yes Last UDS: 03/20/2024 Pharmacy: [facility] 03-20-2024 History of Present illness Narrative [facility] [address] [place] [address] Patient: Rhona Garcia Sex: female : 1960 Age: 64 y.o. 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 Pre proc was 8/10 post proc and currently 7/10. . Date of onset of pain: chronic , pain has lasted greater than 3 months. Pain scale before treatment: 8/10 Pre-op pain score: 8/10 Post-op pain score: 8/10 2 hour post-op pain score: 7/10 4 hour post-op pain score: 7/10 Percentage of relief after and duration: see above Pain scale after treatment: 12/11 Chief Complaint Patient presents with Back Pain Neck Pain Wrist Pain oswaldo HPI: PT/HEP 2018 Back: 06/21/18 oswaldo SI joint injection with no relief on left 75% temporary relief on right. Right SI RFA 01/09/2020 with no relief. 10/15/20 Right SI RFA with 75% relief 03/04/21 RFA Left L 4/5, 5/1 with 50% relief currently. 12/27/18 Caudal not helpful. left lumbar RFA w/75% relief Right SI joint injection on 04/22/2021 with 80% relief then went down to 50% relief. 05/23/21 Right RFA L 4/5, 5/1 with 50% relief. 02/17/22 Caudal with no relief reported. 08/26/2021 Right SI injection w/ 50% Right SI joint injection 03/17/2022 50% relief. 10/27/2022 Right Sacroiliac Injection with 75% relief continuing Right SI joint injection on 06/16/2022 with at least 50% relief. 07/21/22 Rt L 4/5 5/1 RFA w/50% relief pre-proc pain pre-proc pain 7/10 post proc / until Jul 2023 08/04/22 Lt L 4/5 5/ RFA w/50% relief pre-proc pain 8/10 post proc pain 4/10 until Jul 2023 01/26/23 Oswaldo SI Inj w/80% relief continued 07/19/2022 Bilateral Sacroiliac Joint injection with 85% relief x 2 hours, and 50% relief continuing today Bilateral SI joint injection 05/18/23 with 85% relief for 2 hours and 50% continued relief. 08/24/2023 Left L4/5, 5/1 Radio Frequency Ablation with 80% relief continuing. Pre procedure pain 8/10. Post procedure pain 2/10 10/12/2023 Right L4/5, 5/1 Radio Frequency Ablation with 65% relief continuing. Pre procedure pain 8/10. Post procedure pain 3/10 Thumb: 09/22/22 Left CMC joint injection with 90% relief 01/18/24 First CMC joint injection with 90% relief that continues pre proc 11/11 post proc 06/13 Wrist 04/06/2023 left wrist injection with 50% relief that continues left wrist injection on 07/13/2023 with 80% relief. Pre-procedural pain was reported as 6/10 post proc pain is 07/14 Neck: 06/08/19 Left C5/6,6/7, 7/ no relief. JOANNE C / on 07/16/20 w/75% relief. 02/29/2024 C JOANNE with 10% relief reported. Pre proc was 8/10 post proc and currently 7/10 Shoulder right shoulder injection on 11/30/2023 with at least 80% relief. Neck Pain This is a chronic problem. The current episode started more than 1 year ago. The problem occurs constantly. The problem has been unchanged. The pain is associated with nothing. The pain is present in the left side, midline and right side (left greater than right, radiates into oswaldo shoulder, Headaches). The quality of the pain is described as aching, shooting, stabbing, burning and cramping. The pain is at a severity of 7/10. The pain is moderate (to severe). The symptoms are aggravated by coughing, position, stress, sneezing, swallowing, twisting and bending. The pain is Same all the time. Stiffness is present All day, in the morning and at night. Associated symptoms include headaches (daily), numbness (oswaldo hands to fingers), photophobia and weakness (BUE). Pertinent negatives include no chest pain, fever or leg pain. She has tried acetaminophen, muscle relaxants and home exercises for the symptoms. The treatment provided mild relief. Back Pain This is a chronic problem. The current episode started more than 1 year ago (early ). The problem occurs constantly. The problem is unchanged. The pain is present in the sacro-iliac, lumbar spine and gluteal. The quality of the pain is described as aching. Radiates to: hips. The pain is at a severity of 5/10. The pain is moderate. The pain is The same all the time. Exacerbated by: prolonged standing, walking and sitting ; lying down, stairs, bending, twisting, pushing/pulliing, cough/sneeze, transitioing, cold/heat Stiffness is present All day (varies with activity). Associated symptoms include headaches (daily), numbness (oswaldo hands to fingers) and weakness (BUE). Pertinent negatives include no bladder incontinence, bowel incontinence, chest pain, fever or leg pain. Risk factors include sedentary lifestyle. Treatments tried: PT/HEP 2019 w/no relief, NSAIDsx3 (naproxen, motrin, ibuprofen), heat, Flexeril, Neurontin, Elavil & [place] w/ some relief, OTC Arnica cream w/ mod relief. The treatment provided moderate relief. Wrist Pain The pain is present in the left wrist, right wrist, left hand, right hand and left fingers (left greater than right). This is a chronic problem. The current episode started more than 1 year ago. There has been no history of extremity trauma. The problem occurs constantly. The problem has been unchanged. The quality of the pain is described as aching. The pain is at a severity of 3/10. Associated symptoms include numbness (oswaldo hands to fingers). Pertinent negatives include no fever. The symptoms are aggravated by activity and contact. She has tried NSAIDS, heat and acetaminophen for the symptoms. The treatment provided mild relief. The effect of pain on patient's ADLS: Moderate Impairment. 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 Fall after dizzy spell GERD (gastroesophageal reflux disease) Gout Heart palpitations Hypertension Joint pain Kidney failure Low back pain Lumbar disc disease Neck pain Neuropathy Osteoarthritis Raynaud's disease Scleroderma ([facility]) Syncope Vertigo Past Surgical History: Procedure Laterality Date CARPAL TUNNEL RELEASE Right EXCISION MASS Left 12/26/2018 Performed by Higinio Okeefe MD at [facility] Right Thumb joint replacement INJECTION BLOCK EPIDURAL CAUDAL STEROID N/A 02/17/2022 Performed by Sky Hemphill MD at [facility] INJECTION BLOCK EPIDURAL CERVICAL/THORACIC: C 12/02 joanne N/A 02/29/2024 Performed by Sky Hemphill MD at [facility] INJECTION BLOCK EPIDURAL CERVICAL/THORACIC: C71 JOANNE N/A 07/16/2020 Performed by Sky Hemphill MD at [facility] INJECTION BLOCK NERVE MEDIAL BRANCH: left [id number] [id number] Left 06/18/2020 Performed by Sky Hemphill MD at [facility] INJECTION BLOCK SACROILIAC JOINT Bilateral 05/18/2023 Performed by Sky Hemphill MD at [facility] INJECTION BLOCK SACROILIAC JOINT Bilateral 01/26/2023 Performed by Sky Hemphill MD at [facility] INJECTION BLOCK SACROILIAC JOINT Right 10/27/2022 Performed by Sky Hemphill MD at [facility] INJECTION BLOCK SACROILIAC JOINT Right 03/17/2022 Performed by Sky Hemphill MD at [facility] INJECTION BLOCK SACROILIAC JOINT Right 08/26/2021 Performed by Sky Hemphill MD at [facility] INJECTION BLOCK SACROILIAC JOINT Right 04/22/2021 Performed by Sky Hemphill MD at [facility] INJECTION BLOCK SACROILIAC JOINT Right 10/15/2020 Performed by Sky Hemphill MD at [facility] INJECTION BLOCK SACROILIAC JOINT: Right 06/16/2022 Performed by Sky Hemphill MD at [facility] INJECTION BURSA INTERMEDIATE Left Wrist Left 07/13/2023 Performed by Sky Hemphill MD at [facility] IN[facility] BURSA INTERMEDIATE Left wrist Left 04/06/2023 Performed by Sky Hemphill MD at [facility] INJECTION BURSA LARGE JOINT: left CMC Left 09/22/2022 Performed by Sky Hemphill MD at [facility] IN[facility] BURSA LARGE JOINT: right shoulder Right 11/30/2023 Performed by Sky Hemphill MD at [facility] INJECTION BURSA LARGE JOINT: right shoulder Right 02/16/2023 Performed by Sky Hemphill MD at [facility] INJECTION BURSA SMALL JOINT Left 1st CMC Left 01/18/2024 Performed by Sky Hemphill MD at [facility] BURSA SMALL JOINT: wrist injection Left 10/07/2018 Performed by Sky Hemphill MD at [facility] INJECTION CAUDAL EPIDURAL WITH CATHETER, STEROID N/A 2018 Performed by Sky Hemphill MD at [facility] IN[facility]CTION LARGE JOINT BURSA: left ankle Left 10/22/2017 Performed by Sky Hemphill MD at [facility] INJECTION MEDIAL BRANCH NERVE BLOCK: left L34 45 51 Left 11/18/2018 Performed by Sky Hemphill MD at [facility] INJECTION SACROILIAC NERVE Bilateral 04/21/2019 Performed by Sky Hemphill MD at [facility] INJECTION SACROILIAC NERVE Left 11/01/2018 Performed by Sky Hemphill MD at [facility] JOINT REPLACEMENT Bilateral RADIO FREQUENCY ABLATION: left L34 45 [id number] Left 12/27/2018 Performed by Sky Hemphill MD at [facility] RADIO FREQUENCY ABLATION: left L34 [id number] Left 10/31/2019 Performed by Sky Hemphill MD at [facility] RADIO FREQUENCY ABLATION: right L34 45 51 Right 10/17/2019 Performed by Sky Hemphill MD at [facility] RADIO FREQUENCY ABLATION: right SI Right 05/16/2019 Performed by Sky Hemphill MD at [facility] RADIO FREQUENCY ABLATION: right SI rfa Right 01/09/2020 Performed by Sky Hemphill MD at [facility] RADIOFREQUENCY ABLATION SPINAL: left L 4/5 5/1 Left 08/04/2022 Performed by Sky Hemphill MD at [facility] RADIOFREQUENCY ABLATION SPINAL: left L 4/5 5/1 Left 03/04/2021 Performed by Sky Hemphill MD at [facility] RADIOFREQUENCY ABLATION SPINAL: left L 4/5, 5/1 Left 08/24/2023 Performed by Sky Hemphill MD at [facility] RADIOFREQUENCY ABLATION SPINAL: right L 4/5 5/1 Right 07/21/2022 Performed by Sky Hemphill MD at [facility] RADIOFREQUENCY ABLATION SPINAL: right L 4/5 5/1 Right 05/23/2021 Performed by Sky Hemphill MD at [facility] RADIOFREQUENCY ABLATION SPINAL: right L 4/5, 5/1 Right 10/12/2023 Performed by Sky Hemphill MD at [facility] RADIOFREQUENCY ABLATION SPINAL: right L34 45 51 Right 05/18/2017 Performed by Sky Hemphill MD at [facility] RADIOFREQUENCY ABLATION SPINAL: right SI Right 11/02/2017 Performed by Sky Hemphill MD at [facility] RADIOFREQUENCY ABLATION SPINAL: Right SI Right 03/05/2017 Performed by Sky Hemphill MD at [facility] RELEASE CARPAL TUNNEL Left 12/26/2018 Performed by Higinio Okeefe MD at [facility] REPAIR TENDON FINGER, 5th finger muscle repair Left 11/22/2020 Performed by Rahat Hirsch MD at [facility] TUBAL LIGATION Allergies Allergen Reactions Cinnamon Analogues Swelling Throat swells Coconut Swelling Throat swells Sulfa (Sulfonamide Antibiotics) Anaphylaxis ivp dye ok per pt noted for pain clinic House Dust Other reaction(s): Other: See Comments itching eyes, scratchy throat Oxycodone-Acetaminophen Other reaction(s): nightmares Darvocet A500 [Propoxyphene N-Acetaminophen] Other (See Comments) Nightmares Lactase GI Disturbance Shellfish Containing Products Abdominal Pain Ok for ivp dye per pt Noted for pain clinic Tizanidine (Bulk) Abdominal Pain Tree Nuts Abdominal Pain Family History Problem Relation Age of Onset Cancer Mother Lung cancer Mother Stroke Father Mahan's palsy Sister Rheum arthritis Nephew Graves' disease Niece Social History Socioeconomic History Marital status: Single Spouse name: Not on file Number of children: Not on file Years of education: Not on file Highest education level: Not on file Occupational History Not on file Tobacco Use Smoking status: Never Smokeless tobacco: Never Vaping Use Vaping status: Never Used Substance and Sexual Activity Alcohol use: No Alcohol/week: 0.0 standard drinks of alcohol Comment: stopped 6-7 years ago Drug use: No Sexual activity: Defer Partners: Male Other Topics Concern Not on file Social History Narrative Not on file Social Drivers of Health Financial Resource Strain: Medium Risk (02/07/2024) Overall Financial Resource Strain (CARDIA) Difficulty of Paying Living Expenses: Somewhat hard Food Insecurity: No Food Insecurity (03/20/2024) Hunger Screening Food Insecurity - Worry: Never True Food Insecurity - Inability: Never True Recent Concern: Food Insecurity - Food Insecurity Present (02/07/2024) Hunger Screening Food Insecurity - Worry: Sometimes True Food Insecurity - Inability: Sometimes True Transportation Needs: Unmet Transportation Needs (02/07/2024) PRAPARE - Transportation Lack of Transportation (Medical): Yes Lack of Transportation (Non-Medical): Yes Physical Activity: Sufficiently Active (03/19/2023) Received from [facility] Exercise Vital Sign Days of Exercise per Week: 4 days Minutes of Exercise per Session: 90 min Stress: No Stress Concern Present (03/19/2023) Received from [facility] [place] [employer] [facility] - Occupational Stress Questionnaire Feeling of Stress : Only a little Social Connections: Socially Isolated (03/19/2023) Re[facility] from [facility] Social Connection and Isolation Panel [NHANES] Frequency of Communication with Friends and Family: Once a week Frequency of Social Gatherings with Friends and Family: Never Attends Yarsanism Services: Never Active Member of Clubs or Organizations: No Attends Club or Organization Meetings: Never Marital Status: Interpersonal Safety: Not At Risk (03/19/2023) Received from [facility], [facility] Humiliation, Afraid, Rape, and Kick questionnaire Fear of Current or Ex-Partner: No Emotionally Abused: No Physically Abused: No Sexually Abused: No Housing Instability: Low Risk (02/07/2024) Housing Instability Housing Instability: No Review of Systems Constitutional: Negative. Negative for chills, fatigue and fever. HENT: Negative. Eyes: Positive for photophobia. Respiratory: Negative. Negative for cough and shortness of breath. Cardiovascular: Negative. Negative for chest pain. Gastrointestinal: Negative. Negative for bowel incontinence. Endocrine: Negative. Genitourinary: Negative. Negative for bladder incontinence. Musculoskeletal: Positive for back pain, gait problem (freq falls, last this am), neck pain and neck stiffness. Skin: Negative. Negative for rash and wound. Allergic/Immunologic: Negative. Neurological: Positive for weakness (BUE), numbness (oswaldo hands to fingers) and headaches (daily). Hematological: Negative. Does not bruise/bleed easily. Psychiatric/Behavioral: Negative. Negative for self-injury and suicidal ideas. Vital Signs: BP 115/55 Pulse 100 Resp 18 Ht 175.3 cm (5' 9 ) Wt 76.2 kg (168 lb) SpO2 95% BMI 24.81 kg/m Physical Exam: GENERAL - Healthy patient that appears stated age. HEENT - Normocephalic / Atraumatic, Extraoccular movements intact, trachea midline, thyroid within normal limits. CV - pulse regular, Warm extremities with appropriate color of nailbeds. RESP - No obvious wheezing, No Shortness of Breath, No overexertion response to exam maneuvers. COORDINATION - remains intact. PSYCH - Alert and Oriented x4, Attentive and appropriate, constitutionally normal, displays normal mood and affect per situation, answered questions appropriately during examination, demonstrated appropriate attention during discussion, demonstrated appropriate cognitive reasoning and understanding of the medical condition by asking appropriate questions regarding the diagnosis and risks/benefits/alternatives of treatment modalities. No obvious deficits in memory, reasoning, or intellect. Cervical: SKIN - No rashes or bruising in the area of the patient s pain. LYMPH NODES - demonstrate no obvious enlargement. EXTREMITIES - Upper extremities are warm, with minimal edema and palpable pulses. Tenderness to palpation noted in the left cervical spine and paraspinal musculature. Pain is elicited with flexion, extension, and lateral rotation of the cervical spine. Range of motion is diminished with these motions due to pain. Facet palpation is noted to be painful and concordant with the patient s normal pain complaints. STRENGTH - noted to be 5 out of 5 all muscle groups bilateral upper extremities including muscles involving shoulder flexion and abduction, elbow flexion and extension, as well as wrist flexion and extension and intrinsic muscles of the hand. No notable atrophy, fasciculations or spasm. SENSORY - No notable sensory deficits in the bilateral upper extremities to touch or pinprick in all dermatomal distributions. Spurlings sign is negative. Assessment/Treatment Plan: Rhona was seen today for back pain, neck pain and wrist pain. Diagnoses and all orders for this visit: Cervical spondylosis without myelopathy - Case request operating room: INJECTION BLOCK NERVE MEDIAL BRANCH: left C56 67 Encounter for long-term opiate analgesic use - Controlled Substance Monitoring, U; Future Continue with [place] 5/325 mg 1 tablet four times daily as needed for pain Urine Drug Screen - To monitor the safety of chronic medication therapy, we will order a Urine Drug Screen. This screen will test for illegal substances as well as prescription medications that we are providing to the patient. As part of our medication policy and contract, the patient has agreed to use only the medications provided by our office in the manner recommended and any deviation of that use can result in discontinuation of the medications from our clinic. Left C 5/6 6/7 Facet Injection/Medial Branch Block - under fluoroscopy It is hopeful that the described procedure will provide symptomatic pain relief. It is felt to be medically necessary noting that the patient has tried and failed more conservative modalities of therapy and this is the next most appropriate step. The procedure was described in detail to the patient as well as the potential benefits of pain reduction alongside risks of the procedure and alternatives. Risks were described as including, but not limited to bleeding, infection, nerve damage, spinal cord injury, paralysis, stroke, dural puncture headache, and medication reaction. The patient expressed understanding regarding the risks and benefits and wishes to proceed. Diagnostic facet injections and medial branch blocks should provide information to confirm that the noted facet arthropathy is the patient s most significant pain generator. If this provides significant but only temporary pain relief, the patient may in the future be a candidate for radiofrequency denervation of the facet joints to provide pain relief for approximately 1 year. Follow up 2 weeks post procedure The medications I have prescribed have been reviewed for medication interactions/contraindications and/or for upcoming procedures: continue current medication regimen without any changes. DISCUSSION: Treatment options discussed with patient and all questions answered to patient's satisfaction. Discussed the rules and regulations surrounding prescription of opioids and compliance at length. Failure to follow the rules and regulation will result in tapering and discontinuation of medications if applicable. The patient has been instructed as to the type of medication prescribed along with directions for use. Potential side effects have been discussed, along with risks and benefits of taking this medication. (S)he was instructed as to what to do if (s)he experiences side effects, including when to discontinue the medication. (S)he was advised to call this office in this event. Also discussed at length safety and security of RX and medications. Due to the high risk nature of this patient's pain medication regimen, frequent office visit refill appointments (every 1-3 months) are medically necessary to monitor for an addiction disorder. Prescribed medication that requires intensive monitoring for toxicity [place]. OARRS and most recent UDS were reviewed, discussed and appropriate for medications prescribed. [place] pill count completed at today's office visit. Dose: 5/325mg Quantity Dispensed 120 Quantity Remaining 72 Fill date on prescription bottle 03/07/24 appropriate Patient educated to bring medication to every office visit. Treatment plans discussed but not opted for at this time: Cervical RFA. Patient would like to proceed with the current outlined treatment plan before moving forward with any other options. It appears that the patient's previous pain is under adequate control with the previous procedure. At this point, we will continue to monitor these symptoms and turn our immediate attention to the more painful complaint that was discussed today. It does appear that is it the new primary pain complaint and the patient would likely benefit from a procedure as treatment for this complaint as well. The spine model was demonstrated and MRI was reviewed and used to explain the condition. Chronic conditions not treated during this visit that affected my overall medical decision making: Comorbidity- Diabetes The patient has a history of diabetes mellitus currently managed with medications. This will need to be considered prior to any procedure that would require the injection of steroid in that the patient may experience a transient increase in glucose as a result. Additional consideration will need to be given to timing the procedure early in the morning in that the patient will need to be fasting prior to the administration of anesthesia. Every effort will be made to perform the procedure as a 1st case due to this condition. And the patient will be instructed to hold their diabetic medications on that morning. If necessary, a blood glucose test can also be performed that morning. The risks/ benefits/ and alternatives will be weighed and explained to the patient prior to any procedure. OARRS: Reviewed. Scribe Statement: Scribed for and in the presence of AMEYA KINCAID by Joan Jackson RN. Provider Statement: I, AMEYA KINCAID, personally performed the services described in the documentation, as scribed by Joan Jackson RN in my presence, and it is both accurate and complete. Joan Jackson RN 03/20/24 1434 Joan Jackson RN 03/20/24 1447 AMEYA Kincaid 04/01/24 0832 documented in this encounter [facility] 03-20-2024 Instructions Joan Jackson RN - 03/20/2024 1:45 PM EDT Facet Injection / Medial Branch Block (MBB) / Sacroiliac (SI) Joint Injection / Cluneal NB A facet injection and sacroiliac joint injection are injections of local anesthetic and steroid into a joint in the spine. A medial branch block is similar, but the medication is placed outside the joint space near the nerve that supplies the joint called the medial branch (steroid may or may not be used). You may require multiple injections depending upon how many joints are involved. How Long Will This Procedure Last? The extent and duration of pain relief may depend on the amount of inflammation and how many areas are involved. Other coexisting factors may be responsible for your pain. If your pain goes away for a short time, but then returns, you may be a candidate for radiofrequency ablation (RFA). Activity Be active. Attempt activities and movements that typically cause pain to see if it feels better while doing them. We will give you a pain diary. Please fill this out as directed by your nurse in pre-op. This will help your doctor determine the effectiveness of the injection, and how to proceed. Bring the pain diary with you to your follow-up appointment. Medications You should not take your pain medications for 4-6 hours before or after the injection in order to properly diagnose if the injection provides adequate relief. Resume your routine medications after your procedure. You may resume blood thinners per your regular schedule after the procedure. If you received sedation: If you received sedation for your procedure, you may feel sleepy or not yourself for several hours today. For the next 24 hours avoid activities that requires alertness or coordination. This includes: Driving or operating heavy machinery Using power tools Consuming alcohol Do not make important or complex decisions or sign legal documents in the next 24 hours. Other Instructions: If you feel severe pain at the injection site with swelling and redness, increased leg weakness, a fever of 101 or higher, headache (or worsening headache), changes in vision or urinary retention: Please call the office at , or have someone take you to the nearest emergency room. Tell the emergency room staff that you recently had a spine injection. A doctor must evaluate you for bleeding and injection complications. If you lose control over bowel, bladder, or legs: Go to the nearest emergency room. documented in this encounter [facility] [employer] [facility] 03-13-2024 History of Present illness Narrative Subjective SUBJECTIVE: Patient ID: Rhona Garcia is a 64 y.o. female who presents for a Medicare Annual Wellness exam. [place] Melgoza reports no concerns today. She lives home alone, feels safe at home and feels that she can care for herself. She is using cane. She admits that does fall often. Declines need for walker or PT. Care team: Pain management and rheumatology, Dr. Ellis for Chronic lower back pain, spinal stenosis, cervical spondylosis, anklosing spondylitis, arthritis, and raynaud's phenomenon. Neurology, Dr. Johnson, for migraines and terrence bryant virus. There is no immunization history on file for this patient. The following portions of the patient's history were reviewed and updated as appropriate: allergies, current medications, past family history, past medical history, past social history, past surgical history and problem list. AWV FLOWSHEET : Lifestyle Assessment Do you smoke or use smokeless tobacco?: No If you smoke or use smokeless tobacco, are you ready to quit?: NA Are you exposed to secondhand smoke?: No On average, how many drinks of alcohol do you consume in a week?: 1 or less Do you exercise for 30 or more minutes on average at least 3 days a week?: Sometimes Do you have any tooth, denture, or oral problems?: (!) Yes Do you snore or has anyone told you that you snore?: No Do you try to eat a balanced diet?: (!) No Do you experience leakage of urine, also known as urinary incontinence?: Never Do you have difficulty performing any of these activities? (check all that apply): (!) Dressing, Eating, Getting out of a chair, Walking Do you have difficulty performing any of these activities? (check all that apply): (!) Housekeeping, Shopping Fall Risk Have you fallen in the past year?: (!) Yes How many times?: 2+ Were you injured?: (!) Yes Are you worried about falling?: (!) Yes Do you feel unsteady when standing or walking?: (!) Yes Risk Stratification: High Risk Depression Screening Little interest or pleasure in doing things: (!) Several days Feeling down, depressed, or hopeless: (!) Several days Trouble falling or staying asleep, or sleeping too much: Not at all Feeling tired or having little energy: (!) Several days Poor appetite or overeating: (!) Nearly every day Feeling bad about yourself - or that you are a failure or have let yourself or your family down: (!) Several days Trouble concentrating on things, such as reading the newspaper or watching television: (!) More than half the days Moving or speaking so slowly that other people could have noticed. Or the opposite - being so fidgety or restless that you have been moving around a lot more than usual: (!) Several days Thoughts that you would be better off , or of hurting yourself in some way: Not at all PEG Scale What number best describes your pain on average in the past week?: 7 What number best describes how, during the past week, pain has interfered with your enjoyment of life?: 2 What number best describes how, during the past week, pain has interfered with your general activity?: 6 PEG Pain Total Score: 5 Safety Assessment Do you have throw rugs on the floor?: No Do you feel safe at your home?: Yes Do you feel unsteady when walking?: (!) Yes Are you having difficulty with driving?: (!) Yes Do you have trouble seeing?: (!) Yes What assistive device do you use? (check all that apply): (!) Raised toilet seat, Cane Hearing Assessment Do you strain or struggle to hear/understand conversations?: No Do you have trouble hearing the television or radio when others do not?: No Does your family ever voice concerns about your hearing?: No Do you wear hearing aid/s?: No Personal Health During the past 4 weeks, how would you rate your overall health?: (!) Fair Do you understand how to take all of your medications?: Yes How confident are you that you can control and manage most of your health problems?: (!) Not very confident In the past 12 months, how many times have you been hospitalized?: None End of Life Planning Do you have a living will?: Yes Do you have a durable power of ip technology transactions attorney?: Yes Cognitive Screening Do you have trouble remembering or recalling facts or events?: (!) Yes Do family members or caregivers report that you have difficulty remembering things?: (!) Yes Clock Drawing Test: Normal REVIEW OF SYSTEMS: Review of Systems Constitutional: Negative for chills, diaphoresis, fever and unexpected weight change. HENT: Negative. Respiratory: Negative for chest tightness, shortness of breath and wheezing. Cardiovascular: Negative for chest pain, palpitations and leg swelling. Gastrointestinal: Negative. Genitourinary: Negative. Musculoskeletal: Positive for arthralgias, back pain, joint swelling, myalgias, neck pain and neck stiffness. Skin: Negative. Neurological: Positive for weakness and headaches (baseline, ongoing for years. migraines). Negative for dizziness. Psychiatric/Behavioral: Negative for self-injury and suicidal ideas. Objective PHYSICAL EXAMINATION: Vitals: 03/13/24 1101 BP: 110/74 BP Site: Left Arm BP Postition: Sitting Pulse: 77 Temp: 36.6 C (97.9 F) TempSrc: Oral SpO2: 94% Weight: 76.2 kg (168 lb) Height: 175.3 cm (5' 9 ) Physical Exam Vitals and nursing note reviewed. Constitutional: General: She is not in acute distress. Appearance: Normal appearance. She is well-developed. She is not ill-appearing. HENT: Head: Normocephalic and atraumatic. Right Ear: Tympanic membrane, ear canal and external ear normal. Left Ear: Tympanic membrane, ear canal and external ear normal. Nose: Nose normal. Mouth/Throat: Mouth: Mucous membranes are moist. Pharynx: Oropharynx is clear. Eyes: Extraocular Movements: Extraocular movements intact. Pupils: Pupils are equal, round, and reactive to light. Neck: Vascular: No carotid bruit. Cardiovascular: Rate and Rhythm: Normal rate and regular rhythm. Pulses: Dorsalis pedis pulses are 1+ on the right side and 1+ on the left side. Heart sounds: Normal heart sounds. No murmur heard. Pulmonary: Effort: Pulmonary effort is normal. No respiratory distress. Breath sounds: Normal breath sounds. No wheezing, rhonchi or rales. Chest: Chest wall: No tenderness. Abdominal: General: Bowel sounds are normal. Palpations: Abdomen is soft. Tenderness: There is no abdominal tenderness. Musculoskeletal: General: Normal range of motion. Cervical back: Normal range of motion and neck supple. No rigidity or tenderness. Right lower leg: No edema. Left lower leg: No edema. Feet: Right foot: Protective Sensation: 8 sites tested. 8 sites sensed. Skin integrity: Skin integrity normal. Left foot: Protective Sensation: 8 sites tested. 8 sites sensed. Skin integrity: Skin integrity normal. Lymphadenopathy: Cervical: No cervical adenopathy. Skin: General: Skin is warm and dry. Capillary Refill: Capillary refill takes 2 to 3 seconds. Findings: No rash. Neurological: General: No focal deficit present. Mental Status: She is alert and oriented to person, place, and time. Motor: No weakness. Psychiatric: Mood and Affect: Mood normal. Behavior: Behavior normal. Assessment/Plan ASSESSMENT/PLAN Health maintenance reviewed. Colon cancer screening agreeable for cologuard. Order sent. Mammogram due- declines PAP exam due- declines. DM foot exam completed today. Normal. She is up to date with DM vision exam. She is up to date with dental exam. Wellness labs previously ordered, completed 02/11/2024. Cholesterol elevated, she is not on statin, I recommend she start. She declines, discussed cardiovascular risks. Magnesium low, 1.7, supplement sent. CBC indicates anemia, hgb 11.3. declines iron supplement CMP unremarkable. HgbA1c 7.0% diabetes, at target. Discussed immunizations. Declines. Routine FU 6 months or sooner PRN. Rhona was seen today for medicare annual wellnes. Diagnoses and all orders for this visit: Medicare annual wellness visit, subsequent Encounter for screening for malignant neoplasm of colon - Cologuard Non-[facility] Mammogram declined Other orders - Discontinue: lisinopriL (PRINIVIL,ZESTRIL) 20 mg tablet; Take 1 tablet (20 mg total) by mouth in the morning. - Discontinue: glimepiride (AMARYL) 1 mg tablet; Take 1 tablet (1 mg total) by mouth every morning before breakfast. - magnesium oxide (MAGOX) 400 mg tablet; Take 1 tablet (400 mg total) by mouth in the morning. - glimepiride (AMARYL) 1 mg tablet; Take 1 tablet (1 mg total) by mouth every morning before breakfast. - lisinopriL (PRINIVIL,ZESTRIL) 20 mg tablet; Take 1 tablet (20 mg total) by mouth in the morning. Return in about 6 months (around 09/11/2024) for HTN. AGUSTIN Cantu 03/13/24 1237 documented in this encounter [facility] 03-07-2024 Telephone encounter Note Lab order printed and placed in the mail. [facility] 03-07-2024 Miscellaneous Notes Lab order printed and placed in the mail. Please send orders vit b12, esr, crp, vitamin D. Orders in epic. Please fax results to rheum office. Thank you! VIt D,Vit B12,CRP, Sed rate are still needed all other results available for review through care everywhere orders pending review please advise will print and mail to pt's home documented in this encounter [facility] 03-06-2024 Telephone encounter Note Please send orders vit b12, esr, crp, vitamin D. Orders in epic. Please fax results to rheum office. Thank you! [facility] 03-06-2024 Telephone encounter Note VIt D,Vit B12,CRP, Sed rate are still needed all other results available for review through care everywhere orders pending review please advise will print and mail to pt's home [facility] 03-06-2024 Telephone encounter Note Called patient LVM and MyChart in regards to completing labs as directed below [facility] 03-06-2024 Miscellaneous Notes Called patient LVM and MyChart in regards to completing labs as directed below Please call and schedule nonfasting labs Apr-2023. Or Please send orders cmp, cbc, esr, crp, vitamin D. Orders in epic. Please fax results to rheum office. Thank you! Notify patient medication refilled Thank you. Patient's request for medication is as follows: Requested Prescriptions Pending Prescriptions Disp Refills secukinumab (COSENTYX PEN, 2 PENS,) 150 mg/mL [Pharmacy Med Name: COSENTYX SENSOREADY PEN (2/PK) 150M] 10 mL 1 Sig: INJECT 2 PENS UNDER THE SKIN EVERY 4 WEEKS. Prescription(s) as above. Please process accordingly. Eugenio Ellis MD Images from the original note were not included. Most recent Rheumatology visit: 01/17/2024 (with Eugenio Ellis) Last Bone Density on file: None on file Rheumatology Care Team: None on file Recent Office Visits - This Specialty 01/17/2024 Ankylosing spondylitis of multiple sites in spine ([facility]) Rheumatology Eugenio Ellis MD 04/06/2023 Ankylosing spondylitis of multiple sites in spine ([facility]) Rheumatology Eugenio Ellis MD 08/28/2022 Ankylosing spondylitis of multiple sites in spine ([facility]) Rheumatology Eugenio Ellis MD Upcoming Rheumatology Appointments - Next 365 Days Visit Type Date Time Department [facility] 12/01/2024 1:20 PM [facility] [place] CBC: Latest Ref Rng & Units 07/14/2020 01/19/2021 CBC WBC 3.70 - 11.00 k/uL 6.81 4.43 Hemoglobin 11.5 - 15.5 g/dL 12.8 12.0 Hematocrit 36.0 - 46.0 % 39.5 38.0 Platelet Count 150 - 400 k/uL 296 237 Vitamin D: None on file in the last 6 months LFT: Latest Ref Rng & Units 07/14/2020 01/19/2021 CMP Sodium 136 - 144 mmol/L 135 138 Potassium 3.7 - 5.1 mmol/L 4.5 5.1 Chloride 97 - 105 mmol/L 98 103 CO2 22 - 30 mmol/L 27 26 Glucose 74 - 99 mg/dL 170 172 BUN 7 - 21 mg/dL 11 18 Creatinine 0.58 - 0.96 mg/dL 0.81 0.91 Calcium 8.5 - 10.2 mg/dL 9.4 9.4 AST 13 - 35 U/L 20 14 ALT 7 - 38 U/L 33 13 Alkaline Phosphatase 34 - 123 U/L 94 94 Hepatic Function: Creatinine: None on file in the last 6 months ESR/CRP: None on file in the last 6 months Uric Acid: None on file in the last 6 months Open Standing (Multiple Instance) Lab Orders None Open Future (Single Instance) Lab Orders Expected Expires Ordered COMP METABOLIC PANEL [SQCMP] 10/07/23 07/09/24 07/09/23 Auth. provider: Eugenio Ellis MD Assoc. diagnoses: Elevated LFTs CBC [SQCBC] 10/07/23 07/09/24 07/09/23 Auth. provider: Eugenio Ellis MD Assoc. diagnoses: Anemia of chronic disease SED RATE WESTERGREN [SQWSR] 10/07/23 07/09/24 07/09/23 Auth. provider: Eugenio Ellis MD Assoc. diagnoses: Elevated sed rate, Elevated C-reactive protein (CRP) C-REACTIVE PROTEIN (CRP) [SQCRP] 10/07/23 07/09/24 07/09/23 Auth. provider: Eugneio Ellis MD Assoc. diagnoses: Elevated sed rate, Elevated C-reactive protein (CRP) VITAMIN D 25 HYDROXY [SQVITD] 10/07/23 07/09/24 07/09/23 Auth. provider: Eugenio Ellis MD Assoc. diagnoses: Vitamin D deficiency VITAMIN B12 BLOOD [SQB12] 10/07/23 07/09/24 07/09/23 Auth. provider: Eugenio Ellis MD Assoc. diagnoses: Vitamin B12 deficiency BLOOD TB SCREEN [SQINFTBP] 10/07/23 07/09/24 07/09/23 Auth. provider: Eugenio Ellis MD Assoc. diagnoses: Screening-pulmonary TB documented in this encounter [facility] 03-05-2024 Telephone encounter Note Please call and schedule nonfasting labs Apr-2023. Or Please send orders cmp, cbc, esr, crp, vitamin D. Orders in epic. Please fax results to rheum office. Thank you! Notify patient medication refilled Thank you. Patient's request for medication is as follows: Requested Prescriptions Pending Prescriptions Disp Refills secukinumab (COSENTYX PEN, 2 PENS,) 150 mg/mL [Pharmacy Med Name: COSENTYX SENSOREADY PEN (2/PK) 150M] 10 mL 1 Sig: INJECT 2 PENS UNDER THE SKIN EVERY 4 WEEKS. Prescription(s) as above. Please process accordingly. Eugenio Ellis MD [facility] 03-05-2024 Telephone encounter Note Images from the original note were not included. Most recent Rheumatology visit: 01/17/2024 (with Eugenio Ellis) Last Bone Density on file: None on file Rheumatology Care Team: None on file Recent Office Visits - This Specialty 01/17/2024 Ankylosing spondylitis of multiple sites in spine ([facility]) Rheumatology Eugenio Ellis MD 04/06/2023 Ankylosing spondylitis of multiple sites in spine ([facility]) Rheumatology Eugenio Ellis MD 08/28/2022 Ankylosing spondylitis of multiple sites in spine ([facility]) Rheumatology Eugenio Ellis MD Upcoming Rheumatology Appointments - Next 365 Days Visit Type Date Time Department [facility] 12/01/2024 1:20 PM [facility] [place] CBC: Latest Ref Rng & Units 07/14/2020 01/19/2021 CBC WBC 3.70 - 11.00 k/uL 6.81 4.43 Hemoglobin 11.5 - 15.5 g/dL 12.8 12.0 Hematocrit 36.0 - 46.0 % 39.5 38.0 Platelet Count 150 - 400 k/uL 296 237 Vitamin D: None on file in the last 6 months LFT: Latest Ref Rng & Units 07/14/2020 01/19/2021 CMP Sodium 136 - 144 mmol/L 135 138 Potassium 3.7 - 5.1 mmol/L 4.5 5.1 Chloride 97 - 105 mmol/L 98 103 CO2 22 - 30 mmol/L 27 26 Glucose 74 - 99 mg/dL 170 172 BUN 7 - 21 mg/dL 11 18 Creatinine 0.58 - 0.96 mg/dL 0.81 0.91 Calcium 8.5 - 10.2 mg/dL 9.4 9.4 AST 13 - 35 U/L 20 14 ALT 7 - 38 U/L 33 13 Alkaline Phosphatase 34 - 123 U/L 94 94 Hepatic Function: Creatinine: None on file in the last 6 months ESR/CRP: None on file in the last 6 months Uric Acid: None on file in the last 6 months Open Standing (Multiple Instance) Lab Orders None Open Future (Single Instance) Lab Orders Expected Expires Ordered COMP METABOLIC PANEL [SQCMP] 10/07/23 07/09/24 07/09/23 Auth. provider: Eugenio Ellis MD Assoc. diagnoses: Elevated LFTs CBC [SQCBC] 10/07/23 07/09/24 07/09/23 Auth. provider: Eugenio Ellis MD Assoc. diagnoses: Anemia of chronic disease SED RATE WESTERGREN [SQWSR] 10/07/23 07/09/24 07/09/23 Auth. provider: Eugenio Ellis MD Assoc. diagnoses: Elevated sed rate, Elevated C-reactive protein (CRP) C-REACTIVE PROTEIN (CRP) [SQCRP] 10/07/23 07/09/24 07/09/23 Auth. provider: Eugenio Ellis MD Assoc. diagnoses: Elevated sed rate, Elevated C-reactive protein (CRP) VITAMIN D 25 HYDROXY [SQVITD] 10/07/23 07/09/24 07/09/23 Auth. provider: Eugenio Ellis MD Assoc. diagnoses: Vitamin D deficiency VITAMIN B12 BLOOD [SQB12] 10/07/23 07/09/24 07/09/23 Auth. provider: Eugenio Ellis MD Assoc. diagnoses: Vitamin B12 deficiency BLOOD TB SCREEN [SQINFTBP] 10/07/23 07/09/24 07/09/23 Auth. provider: Eugenio Ellis MD Assoc. diagnoses: Screening-pulmonary TB [facility] 03-04-2024 Miscellaneous Notes Last Office Visit: 02/12/24 Next Office Visit: 03/20/2024 Last Urine Drug Screen: Lab Results Component Value Date BENZOSCRN Negative 07/03/2023 OARRS appropriate documented in this encounter [facility] 03-04-2024 Telephone encounter Note Last Office Visit: 02/12/24 Next Office Visit: 03/20/2024 Last Urine Drug Screen: Lab Results Component Value Date BENZOSCRN Negative 07/03/2023 OARRS appropriate [facility] 02-12-2024 Miscellaneous Notes Call placed to patient to clarify how she takes Amitriptyline, Cyclobenzaprine, and Gabapentin. No answer. Message left for patient to call this office. Patient returns call. She states she takes Amitryiptyline 25 mg -2 tabs nightly, Cyclobenzaprine 10 mg tablets (2 tablets in the AM, 1 at lunch, 2 at night), Gabapentin 300 mg capsules (2 capsules in the morning, 1 at lunch and 2 at night). She states she takes [place] 5/325 1 tablet 4 times daily. Noted. We do not prescribe any of these meds. She may want to check with her prescribers as this amount of medication may contribute to other problems such as dizziness, falls etc. Called pt, no answer. LM to call back. documented in this encounter [facility] 02-12-2024 Telephone encounter Note Call placed to patient to clarify how she takes Amitriptyline, Cyclobenzaprine, and Gabapentin. No answer. Message left for patient to call this office. Patient returns call. She states she takes Amitryiptyline 25 mg -2 tabs nightly, Cyclobenzaprine 10 mg tablets (2 tablets in the AM, 1 at lunch, 2 at night), Gabapentin 300 mg capsules (2 capsules in the morning, 1 at lunch and 2 at night). She states she takes [place] 5/325 1 tablet 4 times daily. [facility] 02-12-2024 Telephone encounter Note Noted. We do not prescribe any of these meds. She may want to check with her prescribers as this amount of medication may contribute to other problems such as dizziness, falls etc. [facility] 02-12-2024 Telephone encounter Note Called pt, no answer. LM to call back. [facility] 02-12-2024 History of Present illness Narrative [facility] [address] [place] [address] Patient: Rhona Garcia Sex: female : 1960 Age: 64 y.o. PCP: Parish Dean APRN-YADY 02/12/2024 Rhona Garcia is here for a(n) post procedure follow up left First CMC joint injection on 01/18/2024 with 90% relief. Patient completed Cervical spine MRI ordered at last office visit. Patient has pain in left neck, right shoulder, bilteral hands, low back and c/o CADENA's above right eye. Patient states worse pain is on left side of neck. Would like treatment for left neck pain Date of onset of pain: years , pain has lasted greater than 3 months. Pain scale before treatment: 6/10 Pre-op pain score: 6/10 Percentage of relief after and duration: 90% relief Pain scale after treatment: 06/13 Chief Complaint Patient presents with Neck Pain Shoulder Pain Extremity Pain HPI: /2018 Back: 06/21/18 oswaldo SI joint injection with no relief on left 75% temporary relief on right. Right SI RFA 01/09/2020 with no relief. 10/15/20 Right SI RFA with 75% relief 03/04/21 RFA Left L 4/5, 5/1 with 50% relief currently. 12/27/18 Caudal not helpful. left lumbar RFA w/75% relief Right SI joint injection on 04/22/2021 with 80% relief then went down to 50% relief. 05/23/21 Right RFA L 4/5, 5/1 with 50% relief. 02/17/22 Caudal with no relief reported. 08/26/2021 Right SI injection w/ 50% Right SI joint injection 03/17/2022 50% relief. 10/27/2022 Right Sacroiliac Injection with 75% relief continuing Right SI joint injection on 06/16/2022 with at least 50% relief. 07/21/22 Rt L 4/5 5/1 RFA w/50% relief pre-proc pain pre-proc pain 7/10 post proc 3/10 until Jul 2023 08/04/22 Lt L 4/5 5/ RFA w/50% relief pre-proc pain 8/10 post proc pain /10 until Jul 2023 01/26/23 Oswaldo SI Inj w/80% relief continued 07/19/2022 Bilateral Sacroiliac Joint injection with 85% relief x 2 hours, and 50% relief continuing today Bilateral SI joint injection 05/18/23 with 85% relief for 2 hours and 50% continued relief. 08/24/2023 Left L4/5, 5/1 Radio Frequency Ablation with 80% relief continuing. Pre procedure pain 8/10. Post procedure pain 2/10 10/12/2023 Right L4/5, 5/1 Radio Frequency Ablation with 65% relief continuing. Pre procedure pain 8/10. Post procedure pain 3/10 Thumb: 09/22/22 Left CMC joint injection with 90% relief 01/18/24 First CMC joint injection with 90% relief that continues pre proc / post proc 06/13 Wrist 04/06/2023 left wrist injection with 50% relief that continues left wrist injection on 07/13/2023 with 80% relief. Pre-procedural pain was reported as 6/10 post proc pain is 2/10 Neck: 06/08/19 Left C5/6,6/7, 7/ no relief. JOANNE C / on 07/16/20 w/75% relief. Shoulder right shoulder injection on 11/30/2023 with at least 80% relief. Neck Pain This is a chronic problem. The problem occurs constantly. The problem has been gradually worsening. The pain is associated with nothing. The pain is present in the left side, midline and right side (radiates into right shoulder, Headaches). The quality of the pain is described as aching, shooting, stabbing, burning and cramping. The pain is at a severity of 8/10 (right shoulder pain 4/10, left neck 8/10, CADENA's above right eye 4/10). The pain is severe. The symptoms are aggravated by coughing, position, stress, sneezing, swallowing, twisting and bending. The pain is Same all the time. Stiffness is present All day, in the morning and at night. Associated symptoms include headaches (daily) and weakness (Right shoulder). Pertinent negatives include no chest pain or leg pain. She has tried acetaminophen, muscle relaxants and home exercises for the symptoms. Back Pain This is a chronic problem. The current episode started more than 1 year ago (20+ years). The problem occurs constantly. The problem is unchanged. The pain is present in the sacro-iliac, lumbar spine, gluteal and thoracic spine. The quality of the pain is described as aching. The pain does not radiate. The pain is at a severity of 2/10. The pain is mild. The pain is The same all the time. Exacerbated by: prolonged standing, walking and sitting ; lying down, stairs, bending, twisting, pushing/pulliing, cough/sneeze, transitioing, cold/heat Stiffness is present All day (varies with activity). Associated symptoms include headaches (daily) and weakness (Right shoulder). Pertinent negatives include no bladder incontinence, bowel incontinence, chest pain or leg pain. Risk factors include sedentary lifestyle. Treatments tried: PT/HEP 2019 w/no relief, NSAIDsx3 (naproxen, motrin, ibuprofen), heat, Flexeril, Neurontin, Elavil & [place] w/ some relief, OTC Arnica cream w/ mod relief. The treatment provided moderate relief. Wrist Pain The pain is present in the left wrist, right wrist, left hand, right hand and left fingers. This is a chronic problem. The current episode started more than 1 year ago. There has been no history of extremity trauma. The problem occurs constantly. The problem has been unchanged. The quality of the pain is described as aching. Pain scale: left first CMC finger 1/10, bilateral hands 3/10. The symptoms are aggravated by activity and contact. She has tried NSAIDS, heat and acetaminophen for the symptoms. The treatment provided mild relief. The effect of pain on patient's ADLS: Moderate Impairment. Past Medical History: Diagnosis Date Ankylosing spondylitis ([facility]) Asthma as a child Astigmatism contacts Back pain Benign ovarian tumor Carpal tunnel syndrome Cervical disc syndrome Chronic musculoskeletal pain Chronic pain disorder Diabetes mellitus type 2, controlled (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 Fall after dizzy spell GERD (gastroesophageal reflux disease) Gout Heart palpitations Hypertension Joint pain Kidney failure Low back pain Lumbar disc disease Neck pain Neuropathy Osteoarthritis Raynaud's disease Scleroderma ([facility]) Syncope Vertigo Past Surgical History: Procedure Laterality Date CARPAL TUNNEL RELEASE Right EXCISION MASS Left 12/26/2018 Performed by Higniio Okeefe MD at [facility] Right Thumb joint replacement INJECTION BLOCK EPIDURAL CAUDAL STEROID N/A 02/17/2022 Performed by Sky Hemphill MD at [facility] INJECTION BLOCK EPIDURAL CERVICAL/THORACIC: C71 JOANNE N/A 07/16/2020 Performed by Sky Hemphill MD at [facility] INJECTION BLOCK NERVE MEDIAL BRANCH: left [id number] Left 06/18/2020 Performed by Sky Hemphill MD at [facility] INJECTION BLOCK SACROILIAC JOINT Bilateral 05/18/2023 Performed by Sky Hemphill MD at [facility] INJECTION BLOCK SACROILIAC JOINT Bilateral 01/26/2023 Performed by Sky Hemphill MD at [facility] INJECTION BLOCK SACROILIAC JOINT Right 10/27/2022 Performed by Sky Hemphill MD at [facility] INJECTION BLOCK SACROILIAC JOINT Right 03/17/2022 Performed by Sky Hemphill MD at [facility] INJECTION BLOCK SACROILIAC JOINT Right 08/26/2021 Performed by Sky Hemphill MD at [facility] INJECTION BLOCK SACROILIAC JOINT Right 04/22/2021 Performed by Sky Hemphill MD at [facility] INJECTION BLOCK SACROILIAC JOINT Right 10/15/2020 Performed by Sky Hemphill MD at [facility] INJECTION BLOCK SACROILIAC JOINT: Right 06/16/2022 Performed by Sky Hemphill MD at [facility] INJECTION BURSA INTERMEDIATE Left Wrist Left 07/13/2023 Performed by Sky Hemphill MD at [facility] INJECTION BURSA INTERMEDIATE Left wrist Left 04/06/2023 Performed by Sky Hemphill MD at [facility] INJECTION BURSA LARGE JOINT: left CMC Left 09/22/2022 Performed by Sky Hemphill MD at [facility] INJECTION BURSA LARGE JOINT: right shoulder Right 11/30/2023 Performed by Sky Hemphill MD at [facility] INJECTION BURSA LARGE JOINT: right shoulder Right 02/16/2023 Performed by Sky Hemphill MD at [facility] INJECTION BURSA SMALL JOINT Left 1st CMC Left 01/18/2024 Performed by Sky Hemphill MD at [facility] INJECTION BURSA SMALL JOINT: wrist injection Left 10/07/2018 Performed by Sky Hemphill MD at [facility] CAUDAL EPIDURAL WITH CATHETER, STEROID N/A 2018 Performed by Sky Hemphill MD at [facility] INJECTION LARGE JOINT BURSA: left ankle Left 10/22/2017 Performed by Sky Hemphill MD at [facility] INJECTION MEDIAL BRANCH NERVE BLOCK: left L34 45 51 Left 11/18/2018 Performed by Sky Hemphill MD at [facility] INJECTION SACROILIAC NERVE Bilateral 04/21/2019 Performed by Sky Hemphill MD at [facility] INJECTION SACROILIAC NERVE Left 11/01/2018 Performed by Sky Hemphill MD at [facility] JOINT REPLACEMENT Bilateral RADIO FREQUENCY ABLATION: left L34 45 [id number] Left 12/27/2018 Performed by Sky Hemphill MD at [facility] RADIO FREQUENCY ABLATION: left L34 [id number] Left 10/31/2019 Performed by Sky Hemphill MD at [facility] RADIO FREQUENCY ABLATION: right L34 45 51 Right 10/17/2019 Performed by Sky Hemphill MD at [facility] RADIO FREQUENCY ABLATION: right SI Right 05/16/2019 Performed by Sky Hemphill MD at [facility] RADIO FREQUENCY ABLATION: right SI rfa Right 01/09/2020 Performed by Sky Hemphill MD at [facility] RADIOFREQUENCY ABLATION SPINAL: left L 4/5 5/1 Left 08/04/2022 Performed by Sky Hemphill MD at [facility] RADIOFREQUENCY ABLATION SPINAL: left L 4/5 5/1 Left 03/04/2021 Performed by Sky Hemphill MD at [facility] RADIOFREQUENCY ABLATION SPINAL: left L 4/5, 5/1 Left 08/24/2023 Performed by Sky Hemphill MD at [facility] RADIOFREQUENCY ABLATION SPINAL: right L 4/5 5/1 Right 07/21/2022 Performed by Sky Hemphill MD at [facility] RADIOFREQUENCY ABLATION SPINAL: right L 4/5 5/1 Right 05/23/2021 Performed by Sky Hemphill MD at [facility] RADIOFREQUENCY ABLATION SPINAL: right L 4/5, 5/1 Right 10/12/2023 Performed by Sky Hemphill MD at [facility] RADIOFREQUENCY ABLATION SPINAL: right L34 45 51 Right 05/18/2017 Performed by Sky Hemphill MD at [facility] RADIOFREQUENCY ABLATION SPINAL: right SI Right 11/02/2017 Performed by Sky Hemphill MD at [facility] RADIOFREQUENCY ABLATION SPINAL: Right SI Right 03/05/2017 Performed by Sky Hemphill MD at [facility] RELEASE CARPAL TUNNEL Left 12/26/2018 Performed by Higinio Okeefe MD at [facility] REPAIR TENDON FINGER, 5th finger muscle repair Left 11/22/2020 Performed by Rahat Hirsch MD at [facility] TUBAL LIGATION Allergies Allergen Reactions Cinnamon Analogues Swelling Throat swells Coconut Swelling Throat swells Sulfa (Sulfonamide Antibiotics) Anaphylaxis ivp dye ok per pt noted for pain clinic House Dust Other reaction(s): Other: See Comments itching eyes, scratchy throat Oxycodone-Acetaminophen Other reaction(s): nightmares Darvocet A500 [Propoxyphene N-Acetaminophen] Other (See Comments) Nightmares Lactase GI Disturbance Shellfish Containing Products Abdominal Pain Ok for ivp dye per pt Noted for pain clinic Tizanidine (Bulk) Abdominal Pain Tree Nuts Abdominal Pain Family History Problem Relation Age of Onset Cancer Mother Lung cancer Mother Stroke Father Mahan's palsy Sister Rheum arthritis Nephew Graves' disease Niece Social History Socioeconomic History Marital status: Single Spouse name: Not on file Number of children: Not on file Years of education: Not on file Highest education level: Not on file Occupational History Not on file Tobacco Use Smoking status: Never Smokeless tobacco: Never Vaping Use Vaping status: Never Used Substance and Sexual Activity Alcohol use: No Alcohol/week: 0.0 standard drinks of alcohol Comment: stopped 6-7 years ago Drug use: No Sexual activity: Defer Partners: Male Other Topics Concern Not on file Social History Narrative Not on file Social Determinants of Health Financial Resource Strain: Medium Risk (02/07/2024) Overall Financial Resource Strain (CARDIA) Difficulty of Paying Living Expenses: Somewhat hard Food Insecurity: No Food Insecurity (02/12/2024) Hunger Screening Food Insecurity - Worry: Never True Food Insecurity - Inability: Never True Recent Concern: Food Insecurity - Food Insecurity Present (02/07/2024) Hunger Screening Food Insecurity - Worry: Sometimes True Food Insecurity - Inability: Sometimes True Transportation Needs: Unmet Transportation Needs (02/07/2024) PRAPARE - Transportation Lack of Transportation (Medical): Yes Lack of Transportation (Non-Medical): Yes Physical Activity: Sufficiently Active (03/19/2023) Received from [facility] Exercise Vital Sign Days of Exercise per Week: 4 days Minutes of Exercise per Session: 90 min Stress: No Stress Concern Present (03/19/2023) Received from [facility] [place] [employer] - Occupational Stress Questionnaire Feeling of Stress : Only a little Social Connections: Socially Isolated (03/19/2023) Received from [facility] Social Connection and Isolation Panel [NHANES] Frequency of Communication with Friends and Family: Once a week Frequency of Social Gatherings with Friends and Family: Never Attends Yarsanism Services: Never Active Member of Clubs or Organizations: No Attends Club or Organization Meetings: Never Marital Status: Interpersonal Safety: Not At Risk (03/19/2023) Received from [facility], [facility] Humiliation, Afraid, Rape, and Kick questionnaire Fear of Current or Ex-Partner: No Emotionally Abused: No Physically Abused: No Sexually Abused: No Housing Instability: Low Risk (02/07/2024) Housing Instability Housing Instability: No Review of Systems Constitutional: Negative. Negative for chills and fatigue. HENT: Negative. Eyes: Negative. Respiratory: Negative. Cardiovascular: Negative. Negative for chest pain. Gastrointestinal: Negative. Negative for bowel incontinence. Endocrine: Negative. Genitourinary: Negative. Negative for bladder incontinence. Musculoskeletal: Positive for back pain and neck pain. Skin: Negative. Allergic/Immunologic: Negative. Neurological: Positive for weakness (Right shoulder) and headaches (daily). Hematological: Negative. Psychiatric/Behavioral: Negative. Vital Signs: BP (!) 140/92 (BP Site: Left Arm, BP Postition: Sitting) Pulse 110 Resp 20 Physical Exam: GENERAL - Healthy patient that appears stated age. HEENT - Normocephalic / Atraumatic, Extraoccular movements intact, trachea midline, thyroid within normal limits. CV - pulse regular, Warm extremities with appropriate color of nailbeds. RESP - No obvious wheezing, No Shortness of Breath, No overexertion response to exam maneuvers. COORDINATION - remains intact. PSYCH - Alert and Oriented x4, Attentive and appropriate, constitutionally normal, displays normal mood and affect per situation, answered questions appropriately during examination, demonstrated appropriate attention during discussion, demonstrated appropriate cognitive reasoning and understanding of the medical condition by asking appropriate questions regarding the diagnosis and risks/benefits/alternatives of treatment modalities. No obvious deficits in memory, reasoning, or intellect. Cervical: SKIN - No rashes or bruising in the area of the patient s pain. LYMPH NODES - demonstrate no obvious enlargement. EXTREMITIES - Upper extremities are warm, with minimal edema and palpable pulses Tenderness to palpation noted in the cervical spine and paraspinal musculature. Pain is elicited with flexion, extension, and lateral rotation of the cervical spine. Range of motion is diminished with these motions due to pain. Facet palpation is noted to be somewhat tender but not concordant with the patient s normal pain complaints. STRENGTH - noted to be 5 out of 5 all muscle groups bilateral upper extremities including muscles involving shoulder flexion and abduction, elbow flexion and extension, as well as wrist flexion and extension and intrinsic muscles of the hand. No notable atrophy, fasciculations or spasm. SENSORY - No notable sensory deficits in the bilateral upper extremities to touch or pinprick in all dermatomal distributions with exception to decreased sensation in the Left C6 dermatomal distribution(s). Spurlings sign is Positive Assessment/Treatment Plan: Rhona was seen today for neck pain, shoulder pain and extremity pain. Diagnoses and all orders for this visit: Intervertebral disc 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 - Case request operating room: INJECTION BLOCK EPIDURAL CERVICAL/THORACIC: C71 joanne Continue [place] 5/325 mg TID PRN, Gabapentin 600 mg 2 capsules BID, Flexeril 10 mg 1 tablet BID PRN and 2 tablets at HS PRN, Elavil 25 mg 1 tablet at HS PRN C7/T1 Epidural Steroid Injection - under fluoroscopy with the use of contrast dye (unless contraindicated) It is hopeful that the described procedure will provide symptomatic pain relief. It is felt to be medically necessary noting that the patient has tried and failed more conservative modalities of therapy and this is the next most appropriate step. The procedure was described in detail to the patient as well as the potential benefits of pain reduction alongside risks of the procedure and alternatives. Risks were described as including, but not limited to bleeding, infection, nerve damage, spinal cord injury, paralysis, stroke, dural puncture headache, and medication reaction. The patient expressed understanding regarding the risks and benefits and wishes to proceed. It was explained that Epidural Steroid Injections often require a series of 2-3 before significant relief is noted, but we will determine after each injection if another one is indicated. Depending on the amount and duration of relief obtained from the injection, additional modalities of therapy including medications and physical therapy may need to be utilized alongside or following the injections. Follow up 2 weeks after procedure The medications I have prescribed have been reviewed for medication interactions/contraindications and/or for upcoming procedures: continue current medication regimen without any changes. DISCUSSION: Treatment options discussed with patient and all questions answered to patient's satisfaction. Discussed the rules and regulations surrounding prescription of opioids and compliance at length. Failure to follow the rules and regulation will result in tapering and discontinuation of medications if applicable. The patient has been instructed as to the type of medication prescribed along with directions for use. Potential side effects have been discussed, along with risks and benefits of taking this medication. (S)he was instructed as to what to do if (s)he experiences side effects, including when to discontinue the medication. (S)he was advised to call this office in this event. Also discussed at length safety and security of RX and medications. Due to the high risk nature of this patient's pain medication regimen, frequent office visit refill appointments (every 1-3 months) are medically necessary to monitor for an addiction disorder. Prescribed medication that requires intensive monitoring for toxicity [place]. OARRS and most recent UDS were reviewed, discussed and appropriate for medications prescribed. [place] pill count completed at today's office visit. Dose: 5/325 mg QID Quantity Dispensed 120 Quantity Remaining 98 Fill date on prescription bottle 02/06/2024 appropriate Patient educated to bring medication to every office visit. It appears that the patient's previous pain is under adequate control with the previous procedure. At this point, we will continue to monitor these symptoms and turn our immediate attention to the more painful complaint that was discussed today. It does appear that is it the new primary pain complaint and the patient would likely benefit from a procedure as treatment for this complaint as well. The spine model was demonstrated and Xray and MRI was reviewed and used to explain the condition. Chronic conditions not treated during this visit that affected my overall medical decision making: Comorbidity- Diabetes The patient has a history of diabetes mellitus currently managed with medications. This will need to be considered prior to any procedure that would require the injection of steroid in that the patient may experience a transient increase in glucose as a result. Additional consideration will need to be given to timing the procedure early in the morning in that the patient will need to be fasting prior to the administration of anesthesia. Every effort will be made to perform the procedure as a 1st case due to this condition. And the patient will be instructed to hold their diabetic medications on that morning. If necessary, a blood glucose test can also be performed that morning. The risks/ benefits/ and alternatives will be weighed and explained to the patient prior to any procedure. OARRS: Reviewed. Scribe Statement: Scribed for and in the presence of AMEYA KINCAID by Rani Dominguez CNA. Provider Statement: IRAFAELA PA, personally performed the services described in the documentation, as scribed by Rani Dominguez CNA in my presence, and it is both accurate and complete. Rani Dominguez CNA 02/12/24 6544 AMEYA Kincaid 02/14/24 1050 [email or web address] Instructions Rani Dominguez CNA - 02/12/2024 1:45 PM EDT Epidural Steroid Injection (JOANNE) / Nerve Root Injection / Nerve Block These procedure(s) involve the injection of a steroid and anesthetic into the epidural space or the nerve sheath that is both diagnostic and potentially therapeutic for alleviating discomfort of the legs and arms secondary to compression of the respective nerves due to bulging discs, bone spurs and other potential causes. Steroids are potent anti-inflammatory drugs that act to decrease the swollen and inflamed nerves thus relieving your clinical symptoms. How Long Will This Procedure Last? The extent and duration of pain relief may depend on the amount of inflammation and how many areas are involved. Other coexisting factors may be responsible for your pain. You and your physician will discuss expected results of procedure(s). After Your Injection You may experience soreness and tenderness at the area of treatment. This pain may not occur until later today after the numbing medicine wears off. The steroid can take 3-5 days to work and provide noticeable improvement. Activity You may feel temporary numbness, weakness or tingling: In the neck, arm, or fingertips (if your procedure was done in your neck) In the legs (if your procedure was done in your lower back) These symptoms are normal, and should subside within 3-4 hours. In that time, be careful to avoid falls. As a safety precaution, you must have a charter coach driver after a lumbar nerve root injection, even if you do not receive sedation. Resume activity as tolerated when function has returned. Medications Resume your routine medications after your procedure. You may resume blood thinners per your regular schedule after the procedure. If you received sedation: If you received sedation for your procedure, you may feel sleepy or not yourself for several hours today. For the next 24 hours avoid activities that requires alertness or coordination. This includes: Driving or operating heavy machinery Using power tools Consuming alcohol Do not make important or complex decisions or sign legal documents in the next 24 hours. Other Instructions: If you feel severe pain at the injection site with swelling and redness, increased leg weakness, a fever of 101 or higher, headache (or worsening headache), changes in vision or urinary retention: Please call the office at , or have someone take you to the nearest emergency room. Tell the emergency room staff that you recently had a spine injection. A doctor must evaluate you for bleeding and injection complications. If you lose control over bowel, bladder, or legs: Go to the nearest emergency room. If you are diabetic, the steroids used in this procedure can increase your blood sugar. If your blood sugar is 250mg/dL or higher, contact your primary care physician, or the doctor who manages your diabetes, to discuss how to get it back to normal. documented in this encounter [facility] 02-11-2024 Telephone encounter Note Notify patient medication sent as requested Thank you. Patient's request for medication is as follows: Requested Prescriptions Pending Prescriptions Disp Refills amitriptyline (ELAVIL) 25 mg tablet 180 tablet 3 Sig: Take 2 tablets by mouth daily at bedtime. cyclobenzaprine (FLEXERIL) 10 mg tablet 450 tablet 3 Sig: Take 1-2tabs 3times a day gabapentin (NEURONTIN) 300 mg capsule 720 capsule 3 Sig: take 1 to 2 capsules by mouth every morning then take 2 capsules by mouth AT NOON then take 2 capsules by mouth nightly Prescription(s) as above. Please process accordingly. Eugenio Ellis MD [facility] 02-11-2024 Miscellaneous Notes Notify patient medication sent as requested Thank you. Patient's request for medication is as follows: Requested Prescriptions Pending Prescriptions Disp Refills amitriptyline (ELAVIL) 25 mg tablet 180 tablet 3 Sig: Take 2 tablets by mouth daily at bedtime. cyclobenzaprine (FLEXERIL) 10 mg tablet 450 tablet 3 Sig: Take 1-2tabs 3times a day gabapentin (NEURONTIN) 300 mg capsule 720 capsule 3 Sig: take 1 to 2 capsules by mouth every morning then take 2 capsules by mouth AT NOON then take 2 capsules by mouth nightly Prescription(s) as above. Please process accordingly. Eugenio Ellis MD Images from the original note were not included. Pharmacy electronically requests the following refill(s) NEW PHARMACY -- LAST RX SENT TO [facility] -- NEW RX NEED SENT TO [facility] Requested Prescriptions Pending Prescriptions Disp Refills amitriptyline (ELAVIL) 25 mg tablet 180 tablet 3 Sig: Take 2 tablets by mouth daily at bedtime. cyclobenzaprine (FLEXERIL) 10 mg tablet 450 tablet 3 Sig: Take 1-2tabs 3times a day gabapentin (NEURONTIN) 300 mg capsule 720 capsule 3 Sig: take 1 to 2 capsules by mouth every morning then take 2 capsules by mouth AT NOON then take 2 capsules by mouth nightly Jodi Gonzalez MA Most recent Rheumatology visit: 01/17/2024 (with Eugenio Ellis) Last Bone Density on file: None on file Rheumatology Care Team: None on file Recent Office Visits - This Specialty 01/17/2024 Ankylosing spondylitis of multiple sites in spine ([facility]) Rheumatology Eugenio Ellis MD 04/06/2023 Ankylosing spondylitis of multiple sites in spine ([facility]) Rheumatology Eugenio Ellis MD 08/28/2022 Ankylosing spondylitis of multiple sites in spine ([facility]) Rheumatology Eugenio Ellis MD Upcoming Rheumatology Appointments - Next 365 Days Visit Type Date Time Department [facility] 12/01/2024 1:20 PM [facility] CBC: Latest Ref Rng & Units 07/14/2020 01/19/2021 CBC WBC 3.70 - 11.00 k/uL 6.81 4.43 Hemoglobin 11.5 - 15.5 g/dL 12.8 12.0 Hematocrit 36.0 - 46.0 % 39.5 38.0 Platelet Count 150 - 400 k/uL 296 237 Vitamin D: None on file in the last 6 months LFT: Latest Ref Rng & Units 07/14/2020 01/19/2021 CMP Sodium 136 - 144 mmol/L 135 138 Potassium 3.7 - 5.1 mmol/L 4.5 5.1 Chloride 97 - 105 mmol/L 98 103 CO2 22 - 30 mmol/L 27 26 Glucose 74 - 99 mg/dL 170 172 BUN 7 - 21 mg/dL 11 18 Creatinine 0.58 - 0.96 mg/dL 0.81 0.91 Calcium 8.5 - 10.2 mg/dL 9.4 9.4 AST 13 - 35 U/L 20 14 ALT 7 - 38 U/L 33 13 Alkaline Phosphatase 34 - 123 U/L 94 94 Hepatic Function: Creatinine: None on file in the last 6 months ESR/CRP: None on file in the last 6 months Uric Acid: None on file in the last 6 months Open Standing (Multiple Instance) Lab Orders None Open Future (Single Instance) Lab Orders Expected Expires Ordered COMP METABOLIC PANEL [SQCMP] 10/07/23 07/09/24 07/09/23 Auth. provider: Eugenio Ellis MD Assoc. diagnoses: Elevated LFTs CBC [SQCBC] 10/07/23 07/09/24 07/09/23 Auth. provider: Eugenio Ellis MD Assoc. diagnoses: Anemia of chronic disease SED RATE WESTERGREN [SQWSR] 10/07/23 07/09/24 07/09/23 Auth. provider: Eugenio Ellis MD Assoc. diagnoses: Elevated sed rate, Elevated C-reactive protein (CRP) C-REACTIVE PROTEIN (CRP) [SQCRP] 10/07/23 07/09/24 07/09/23 Auth. provider: Eugenio Ellis MD Assoc. diagnoses: Elevated sed rate, Elevated C-reactive protein (CRP) VITAMIN D 25 HYDROXY [SQVITD] 10/07/23 07/09/24 07/09/23 Auth. provider: Eugenio Ellis MD Assoc. diagnoses: Vitamin D deficiency VITAMIN B12 BLOOD [SQB12] 10/07/23 07/09/24 07/09/23 Auth. provider: Eugenio Ellis MD Assoc. diagnoses: Vitamin B12 deficiency BLOOD TB SCREEN [SQINFTBP] 10/07/23 07/09/24 07/09/23 Auth. provider: Eugenio Ellis MD Assoc. diagnoses: Screening-pulmonary TB documented in this encounter [facility] 02-11-2024 Telephone encounter Note Images from the original note were not included. Pharmacy electronically requests the following refill(s) NEW PHARMACY -- LAST RX SENT TO [facility] -- NEW RX NEED SENT TO [facility] Requested Prescriptions Pending Prescriptions Disp Refills amitriptyline (ELAVIL) 25 mg tablet 180 tablet 3 Sig: Take 2 tablets by mouth daily at bedtime. cyclobenzaprine (FLEXERIL) 10 mg tablet 450 tablet 3 Sig: Take 1-2tabs 3times a day gabapentin (NEURONTIN) 300 mg capsule 720 capsule 3 Sig: take 1 to 2 capsules by mouth every morning then take 2 capsules by mouth AT NOON then take 2 capsules by mouth nightly Jodi Gonzalez MA Most recent Rheumatology visit: 01/17/2024 (with Eugenio Ellis) Last Bone Density on file: None on file Rheumatology Care Team: None on file Recent Office Visits - This Specialty 01/17/2024 Ankylosing spondylitis of multiple sites in spine ([facility]) Rheumatology Eugenio Ellis MD 04/06/2023 Ankylosing spondylitis of multiple sites in spine ([facility]) Rheumatology Eugenio Ellis MD 08/28/2022 Ankylosing spondylitis of multiple sites in spine ([facility]) Rheumatology Eugenio Ellis MD Upcoming Rheumatology Appointments - Next 365 Days Visit Type Date Time Department [facility] 12/01/2024 1:20 PM [facility] CBC: Latest Ref Rng & Units 07/14/2020 01/19/2021 CBC WBC 3.70 - 11.00 k/uL 6.81 4.43 Hemoglobin 11.5 - 15.5 g/dL 12.8 12.0 Hematocrit 36.0 - 46.0 % 39.5 38.0 Platelet Count 150 - 400 k/uL 296 237 Vitamin D: None on file in the last 6 months LFT: Latest Ref Rng & Units 07/14/2020 01/19/2021 CMP Sodium 136 - 144 mmol/L 135 138 Potassium 3.7 - 5.1 mmol/L 4.5 5.1 Chloride 97 - 105 mmol/L 98 103 CO2 22 - 30 mmol/L 27 26 Glucose 74 - 99 mg/dL 170 172 BUN 7 - 21 mg/dL 11 18 Creatinine 0.58 - 0.96 mg/dL 0.81 0.91 Calcium 8.5 - 10.2 mg/dL 9.4 9.4 AST 13 - 35 U/L 20 14 ALT 7 - 38 U/L 33 13 Alkaline Phosphatase 34 - 123 U/L 94 94 Hepatic Function: Creatinine: None on file in the last 6 months ESR/CRP: None on file in the last 6 months Uric Acid: None on file in the last 6 months Open Standing (Multiple Instance) Lab Orders None Open Future (Single Instance) Lab Orders Expected Expires Ordered COMP METABOLIC PANEL [SQCMP] 10/07/23 07/09/24 07/09/23 Auth. provider: Eugenio Ellis MD Assoc. diagnoses: Elevated LFTs CBC [SQCBC] 10/07/23 07/09/24 07/09/23 Auth. provider: Eugenio Ellis MD Assoc. diagnoses: Anemia of chronic disease SED RATE WESTERGREN [SQWSR] 10/07/23 07/09/24 07/09/23 Auth. provider: Eugenio Ellis MD Assoc. diagnoses: Elevated sed rate, Elevated C-reactive protein (CRP) C-REACTIVE PROTEIN (CRP) [SQCRP] 10/07/23 07/09/24 07/09/23 Auth. provider: Eugenio Ellis MD Assoc. diagnoses: Elevated sed rate, Elevated C-reactive protein (CRP) VITAMIN D 25 HYDROXY [SQVITD] 10/07/23 07/09/24 07/09/23 Auth. provider: Eugenio Ellis MD Assoc. diagnoses: Vitamin D deficiency VITAMIN B12 BLOOD [SQB12] 10/07/23 07/09/24 07/09/23 Auth. provider: Eugenio Ellis MD Assoc. diagnoses: Vitamin B12 deficiency BLOOD TB SCREEN [SQINFTBP] 10/07/23 07/09/24 07/09/23 Auth. provider: Caleb, Eugenio, MD Assoc. diagnoses: Screening-pulmonary TB [facility] 02-01-2024 Miscellaneous Notes Last Office Visit: 12/25/2023 Next Office Visit: 02/12/2024 Last Urine Drug Screen: Lab Results Component Value Date BENZOSCRN Negative 07/03/2023 OARRS appropriate documented in this encounter [facility] 02-01-2024 Telephone encounter Note Last Office Visit: 12/25/2023 Next Office Visit: 02/12/2024 Last Urine Drug Screen: Lab Results Component Value Date BENZOSCRN Negative 07/03/2023 OARRS appropriate [facility] 01-30-2024 Telephone encounter Note Cosentyx approved. [facility] 01-30-2024 Miscellaneous Notes Cosentyx approved. Questionnaire not yet received. Images from the original note were not included. Electronic Prior Authorization not supported. Submit via other methods. Note from payer: Your PA request cannot be processed electronically. You will be receiving the question set by fax. For further inquiries please contact the number on the back of the member prescription card. (Message [phone]) - Prescriber details have been updated to match the prescriber directory. Payer: [facility] [phone] Office staff, please start prior authorization for cosentyx for ankylosing spondylitis since this does not go to [facility] specialty. Failed enbrel, humira, cimzia, methotrexate, sulfasalazine. Sent script to [facility] specialty pharmacy. Please Enroll in patient assistance Please Schedule nurse visit for injection instruction if approved/received Thank you. Please call patient. Thank you for the update. Sorry to hear about your discomfort. May use walker instead of cane. Please follow up with spine/pain clinic. May submit request for a different ankylosing spondylitis medication to insurance since enbrel not helping. Hope you feel better soon! Warm regards, :) Patient's request for medication is as follows: Requested Prescriptions Signed Prescriptions Disp Refills secukinumab (COSENTYX PEN, 2 PENS,) 150 mg/mL 10 Each 1 Simg sq injection once a week x 5, then every 4weeks thereafter. Hold if on antibiotics or ill. No LIVE vaccines Prescription(s) as above. Please process accordingly. Eugenio Ellis MD documented in this encounter [facility] 01-24-2024 Telephone encounter Note Will await pa approval from [facility] specialty pharmacy. [facility] 01-24-2024 Miscellaneous Notes Will await pa approval from [facility] specialty pharmacy. Notify patient medication sent as requested Sent script to specialty pharmacy. Please Enroll in patient assistance Please Schedule nurse visit for injection instruction when received Thank you. Patient's request for medication is as follows: Requested Prescriptions Pending Prescriptions Disp Refills secukinumab (COSENTYX PEN, 2 PENS,) 150 mg/mL 10 mL 1 Sig: Inject 300mg (2 pens) subcutaneously once weekly for 5 weeks followed by 300mg (2 pens) every 4 weeks thereafter. Hold if on antibiotics or ill. No LIVE vaccines Prescription(s) as above. Please process accordingly. Eugenio Ellis MD Prior authorization for pended medication(s) has been approved; however, due to insurance restrictions Rx must be filled at [facility] ([phone]). If refill request approved, eRx will be sent to above Specialty Pharmacy for processing. Thank you. NOTE: Initial prior auth was completed by [facility] and expires on 01/22/25. Future PA renewals will be the responsibility of the provider's office. Pended Orders ID Status Description Pended By When Reason [id number] Pended secukinumab (COSENTYX PEN, 2 PENS,) 150 mg/mL Jed Gaspar RPh 01/24/24 0917 Jed Gaspar RPh Clinical Pharmacist - Biologics: Allergy, Immunology, and Inflammatory [facility] ; Pool: [facility] Pool #: [id number] documented in this encounter [facility] 01-24-2024 Telephone encounter Note Notify patient medication sent as requested Sent script to specialty pharmacy. Please Enroll in patient assistance Please Schedule nurse visit for injection instruction when received Thank you. Patient's request for medication is as follows: Requested Prescriptions Pending Prescriptions Disp Refills secukinumab (COSENTYX PEN, 2 PENS,) 150 mg/mL 10 mL 1 Sig: Inject 300mg (2 pens) subcutaneously once weekly for 5 weeks followed by 300mg (2 pens) every 4 weeks thereafter. Hold if on antibiotics or ill. No LIVE vaccines Prescription(s) as above. Please process accordingly. Eugenio Ellis MD T [facility] 01-24-2024 Telephone encounter Note Prior authorization for pended medication(s) has been approved; however, due to insurance restrictions Rx must be filled at [facility] ([phone]). If refill request approved, eRx will be sent to above Specialty Pharmacy for processing. Thank you. NOTE: Initial prior auth was completed by [facility] and expires on 01/22/25. Future PA renewals will be the responsibility of the provider's office. Pended Orders ID Status Description Pended By When Reason [id number] Pended secukinumab (COSENTYX PEN, 2 PENS,) 150 mg/mL Jed Gaspar RPh 01/24/24916 Jed Gaspar RPh Clinical Pharmacist - Biologics: Allergy, Immunology, and Inflammatory [facility] ; Pool: [facility] Pool #: [id number] [facility] 01-23-2024 Telephone encounter Note Questionnaire not yet received. [facility] 01-23-2024 Telephone encounter Note Images from the original note were not included. Electronic Prior Authorization not supported. Submit via other methods. Note from payer: Your PA request cannot be processed electronically. You will be receiving the question set by fax. For further inquiries please contact the number on the back of the member prescription card. (Message [phone]) - Prescriber details have been updated to match the prescriber directory. Payer: [facility] [phone] [facility] 01-23-2024 History of Present illness Narrative [facility] received prescription(s) for Cosentyx from Dr. Ellis's office. Benefits investigation was conducted, indicating that a prior authorization is required by patient's insurance plan with [employer]EP. Encounter will be updated once prior authorization has been submitted by [facility]. Blessing Meléndez CPhT, Inflammatory/Allergy [facility] [phone] Prior authorization was approved for Cosentyx. Plan Name: [employer]EP PA reference number: - Approval Dates: 12/24/23-01/22/25 However, s/he is required to use [facility] to fill this medication. Will queue prescription(s) to go to designated specialty pharmacy. No further action by [facility]. Blessing Meléndez CPhT, Inflammatory/Allergy [facility] [phone] documented in this encounter [facility] 01-23-2024 Note HNO ID: [id number] Author: GASPAR RPh Service: ? Author Type: ? Type: Progress Notes Filed: 01/24/2024 09:20 Note Text: Attestation signed by Jed Gaspar RPh at 01/24/2024 9:20 AM Jed Gaspar PharmD, [facility] Clinical Pharmacist - Biologics: Allergy, Immunology, and Inflammatory [facility] ; Pool: P [facility] Pool #: [id number] Prior authorization was approved for Cosentyx. Plan Name: [employer]ALLIN AMEYA reference number: - Approval Dates: 12/24/23-01/22/25 However, s/he is required to use [facility] to fill this medication. Will queue prescription(s) to go to designated specialty pharmacy. No further action by [facility]. Blessing Meléndez CPhT, Inflammatory/Allergy [facility] [phone] [facility] 01-23-2024 Note HNO ID: [id number] Author: ?, ?, ? Service: ? Author Type: ? Type: Progress Notes Filed: 01/23/2024 10:44 Note Text: [facility] received prescription(s) for Cosentyx from Dr. Ellis's office. Benefits investigation was conducted, indicating that a prior authorization is required by patient's insurance plan with DALLIN. Encounter will be updated once prior authorization has been submitted by [facility]. Blessing Meléndez CPhT, Inflammatory/Allergy [facility] [phone] [facility] 01-23-2024 Telephone encounter Note Office staff, please start prior authorization for cosentyx for ankylosing spondylitis since this does not go to [facility]. Failed enbrel, humira, cimzia, methotrexate, sulfasalazine. Sent script to [facility] specialty pharmacy. Please Enroll in patient assistance Please Schedule nurse visit for injection instruction if approved/received Thank you. Please call patient. Thank you for the update. Sorry to hear about your discomfort. May use walker instead of cane. Please follow up with spine/pain clinic. May submit request for a different ankylosing spondylitis medication to insurance since enbrel not helping. Hope you feel better soon! Warm regards, :) Patient's request for medication is as follows: Requested Prescriptions Signed Prescriptions Disp Refills secukinumab (COSENTYX PEN, 2 PENS,) 150 mg/mL 10 Each 1 Simg sq injection once a week x 5, then every 4weeks thereafter. Hold if on antibiotics or ill. No LIVE vaccines Prescription(s) as above. Please process accordingly. Eugenio Ellis MD [facility] 01-17-2024 Instructions Eugenio Ellis MD - 01/17/2024 12:25 PM EDT May apply over the counter arthritis cream (biofreeze, icy hot, asper cream, tiger balm, capsacin, etc.) to painful joints up to four times a day. Avoid contact with eyes. May take ES acetaminophen 500mg every 4-6hours for joint pain. Do not exceed 3000mg /day. Decrease stress Improve sleep May apply heat/ice 20minutes on and off to areas of pain Avoid aggravating triggers If needed, may take Calcium 1000mg daily with food in DIVIDED doses If normal, take Vitamin D 4000 International Units daily with food Vitamin b12 as instructed Neurontin/gabapentin as instructed OFF cardizem May apply nitrobid for raynauds as instructed, may cause headaches enbrel 50mg sq injection TWICE a week if approved/currently only approved for once a week Please hold enbrel if on antibiotics or if you have any signs/symptoms of infection. 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 Moisturizing treatments Stimulating saliva -- Simply sucking on sugarless candy or dried fruit slices (eg, peaches or nectarines) can stimulate the flow of saliva in many patients. Erie flavored sugarless tablets and sugar-free chewing gum may also be helpful. In some patients, medications such as pilocarpine or cevimeline are given to increase saliva production. Replacing secretions in the mouth -- Sipping on water throughout the day is an easy and effective treatment of dry mouth for many patients. The water does not have to be swallowed. It can be rinsed around the mouth and then spit out. If this is not effective, an artificial saliva product (spray or lozenge) may be helpful. If painful gums are a problem, a gel that relieves dry mouth (such as Oral Balance) can be helpful. Avoiding cavities -- Patients with SS are at increased risk for dental cavities. SS patients should perform careful dental hygiene, ideally brushing and dental flossing after eating meals and snacks. Patients should visit their dentist at least every six months. Toothpaste designed specifically for patients with dry mouth is available (eg, Biotene , Orajel ). These lack the detergents that are present in many types of toothpaste, which can irritate a dry mouth. Toothbrushes with special features that help clean between the teeth and electric toothbrushes may also help to keep the teeth clean. Patients should use a toothpaste with fluoride or a special fluoride rinse or varnish. We recommend a fluoride treatment with a dentist or dental hygienist after each cleaning. Since the dentist may not stock this treatment, patients should contact the dental office prior to the appointment. Dry eye -- Use of a humidifier or moist washcloth over the eyes may provide some relief for dry eyes. Most patients also use an artificial tear drop. Many different solutions are available; a clinician can recommend an appropriate choice based on an individual's pattern of dryness and fluid production in the eye. Some patients are sensitive to the preservatives found in artificial tear preparations. If burning or itching occurs, a brand with a non-irritating preservative may be tried. Alternately, a preservative-free variety can be used. Eye drops without preservative come in small, single-dose containers that may be hard for some people with joint and/or vision problems. A prescription eye drop containing cyclosporine is also available (Restasis ). Some patients use an eye ointment at night. It is important to use only about 1/8 (3 mm) of the ointment because overuse can block the ducts and lead to a condition called blepharitis (see Blepharitis (eyelid inflammation) below). Preserving natural tears -- Various measures can be used to preserve a patient's own tears. Gutierrez can be fitted on the sides of glasses, helping to protect the eye from air and wind, reducing evaporation of tears. Goggles or wrap-around sunglasses serve a similar function. Another approach is a simple surgical procedure called punctal occlusion. In this procedure, an marine firefighter inserts small plugs into the tear ducts in the corner of the lower eyelid, nearest the nose, where the tears normally collect and drain into the nasal passages. By blocking this duct, the patient's tears stay on the eye longer. There are several types of plugs, one of which does not touch the surface of the eyeball; these plugs are generally preferred. Treating other problems Fungal infections in the mouth -- Prescription medications are available to treat painful mouth lesions due to oral candidiasis (yeast infection); these include clotrimazole, nystatin elixir, miconazole gel, or amphotericin B lozenges. Patients who wear dentures and develop an infection should disinfect the dentures overnight while being treated. The soak should include nystatin powder or 0.2 percent chlorhexidine solution to prevent reinfection. Dry nose -- It is important to treat nasal dryness or stuffiness because blocked nasal passages can increase mouth breathing and worsen dry mouth. Saline nasal sprays are available in most drugstores. Other cause of nasal blockage, including allergy or sinus infection, should be treated promptly. (See Patient information: Rhinitis). Blepharitis (eyelid inflammation) -- Blepharitis causes symptoms that are similar to those of dry eye (swollen lids and redness of the inside of the lids). Gently washing the skin of the eyelids can relieve blepharitis. This can be done with a warm wet washcloth and a small amount of no tears shampoo. With the eyes closed, the excess debris should be rubbed from the inner eye to the outer eye area. Dryness in other areas -- Patients with SS may have dryness in other areas, including the lips, skin, and the vagina. Dry lips may require petroleum jelly or lip salves. Dry skin usually improves with frequent and liberal use of a moisturizing cream or ointment. Some women with SS have difficulty with vaginal dryness, especially after menopause. There are several products specifically designed for vaginal dryness, including vaginal moisturizers, estrogen cream, vitamin E oil, and lubricants for use with sexual intercourse; a healthcare provider should be consulted for specific recommendations. GENERAL MEASURES -- The following general measures are helpful for all patients with Raynaud's: Avoidance of sudden cold exposure and stress reduction Use of strategies to keep the whole body warm, including dressing warmly (eg, with thermal underwear and heat conserving hat) Keeping digits warm (eg, mittens or electric hand warmers instead of gloves). Knowledge of methods to help terminate an attack of RP. These include placing the hands under warm water or in a warm place (such as the axilla), or rotating arms in a whirling or windmill pattern. Avoidance of rapidly changing temperatures, such as quickly moving from a hot environment (90 degrees F) into an air-conditioned room (70 degrees F); cool breezes, or humid cold air is also recommended. Avoidance of smoking is recommended since regular smokers are sensitized to the vasoconstrictive properties of cigarettes; the response in patients with RP does not appear to be different from that in normals [5]. Avoiding second hand smoke is prudent. Avoidance of sympathomimetic drugs (such as decongestants, amphetamines, diet pills, herbs containing ephedra) is generally recommended, but studies of the true impact of jafs-bnd-oytfknd preparations (such as cold medications) have not yet been performed. Discontinuing caffeine containing beverages has also been recommended, but xanthines transiently reduce peripheral vascular resistance. Patients with vibration-induced RP should avoid use of vibrating tools. Raynaud's phenomenon often can be managed just with lifestyle modification. Certain general measures may be adopted to help prevent and terminate Raynaud s attacks. These simple measures can reduce the frequency, severity, and duration of attacks and include avoiding cold temperatures and temperature fluctuations; alleviating stress; adopting measures to keep the body warm, including adequate clothing (eg, using multiple layers, wearing thermal underwear and a warm hat); and keeping the fingers warm (eg, by using mittens or electric hand warmers instead of gloves). Placing the hands under warm water or rotating the arms in a windmill pattern may help abort Raynaud s attacks. Both active and passive smoking should be avoided to help minimize the vasoconstrictive effects of tobacco. Sympathomimetic drugs (eg, decongestants, stimulants, and anorexiants) should also be avoided. A calcium channel agnieszka, such as Amlodipine (Norvasc) 2.5mg tablet at night or Procardia, can be used during the winter months for intractable Raynaud's phenomenon. 12/25/23 high crp 1.1 (NL0-0.744mg/dL), glucose 140, vitamin b12>1500;low hgb 10.6normal cmp, potassium 3.8, creat 0.83, calcium 9, alkaline phosphatase 69, ast 15, alt 12, vitamin D 53.8, wbc 6.9, plts 317;negative quantiferon tb; [facility] 07/03/23 normal cmp, potassium 4.1, creat 0.81, glucose 71, calcium 9, alkaline phosphatase 74, ast 18, alt 16, crp 0.2 (NL0-0.744mg/dL), vitamin D 54.4, cbc, wbc 5.6, hgb 11.8, plts 272, esr 30 (normal 0-30mm/hr) [facility] 02/16/23 normal vitamin D 58.2, glucose 85, crp 0.1 (normal 0-0.744mg/dL), esr 17, wbc 5, hgb 12.1, plts 230, cmp, creat 0.77, calcium 9, [facility] 11/07/22 low hgb 11.6;normal cmp, glucose 130, potassium 4, creat 0.94, calcium 9.2, alkaline phosphatase 5, ast 12, alt 18, vitamin D 53.2, esr 9 (NL0-30mm/hr), crp 0.1 (NL0-0.744mg/dL), wbc 7.9, plts 283; [facility] 08/14/22 high vitamin b12>1500pg/mL);normal cmp, potassium 4.1, creat 0.84, glucose 74, calcium 8.8, alkaline phosphatase 47, ast 13, alt 20, crp<0.1 (0-0.74mg/dL), vitamin D 56.7, wbc 6.1, hgb 12.2, plts 252, esr 10 (NL0-30mm/hr);negative quantiferon tb; [facility]; 07/06/22 left hand xrays- advanced degenerative joint disease throughout the wrist with appearances most compatible with advanced osteoarthritis associated with with chondrocalcinosis. Osteoarthritis superimposed upon an underlying inflammatory arthropathy is possible given extensive abnormality involving wrist. Milder osteoarthritis within several of the DIP. documented in this encounter [facility] 01-17-2024 History of Present illness Narrative Face to face Follow up for Ankylosing spondylitis/CTS/raynauds/joint pain Today's visit 01/17/24:taking flexeril, gabapentin, elavil, off vitamin D script, enbrel (but insurance only approves 50mg sq injection once a week even if patient was better with twice a week for years) just started recent oral steroids. 3-4months ago eye exam, worsening cataracts.. Raynauds better with warmer weather, no digital ulcers. Fell a few times. 01/18/24 due for left shoulder injection 12/25/23 seen for neck pain 12/25/23 high crp 1.1 (NL0-0.744mg/dL), glucose 140, vitamin b12>1500;low hgb 10.6normal cmp, potassium 3.8, creat 0.83, calcium 9, alkaline phosphatase 69, ast 15, alt 12, vitamin D 53.8, wbc 6.9, plts 317;negative quantiferon tb; 11/30/23 had right shoulder injection [facility] 07/03/23 normal cmp, potassium 4.1, creat 0.81, glucose 71, calcium 9, alkaline phosphatase 74, ast 18, alt 16, crp 0.2 (NL0-0.744mg/dL), vitamin D 54.4, cbc, wbc 5.6, hgb 11.8, plts 272, esr 30 (normal 0-30mm/hr) 05/07/23 last dose cimzia 06/27/23 restart enbrel 50-75% improvement from enbrel, worse pain since late for medication and decreased to once a week. limited exercise due to pain. R 2nd/3rd MCP, R hand swelling. Chronic current pain in R hand now claw like, unable close and flatten, L>R hips, low back, legs cramp . More neck crunching, left hip popping(10years since hip surgery). Reports pain 01/11. Has 2hr minimal AM stiffness. Feels safe at home. Has enough food, supplies and medications. Overall uncomfortable but happy with rheum care. No fx/trauma/illness/oral sores/rash/hairloss/jaw pain/dysphagia/epistaxis/hemoptys is since last visit. No adverse effects with meds. No other complaints. Patient denies fever, chills, cp, dyspnea, nausea, vomiting, night sweats, scalp tenderness, visual changes, cadena, bowel/bladder changes, weight changes or other complaints. Last visit supportive care, restart fall precautions, see neurology for dizziness/crystals care, see primary care provider for depression care/concern about low glucose, flexeril prn, prn neurontin, see derm, see GI, biotene products, follow up with ortho for s/p L CTS care/improved with injections, on cardizem per PCP/ok to increase for winter, raynauds general measures, wear heated hand glove liners, for flares take prednisone ashanti, f/u ENT for TMJ growth/pain, f/u spine/PT, tolerating cimzia as instructed, OFF enbrel 50mg sq injection TWICE a week since 08/2015 since SSZ/methotrexate not tolerated, did discuss alternative biologics if high APRs, prn heat/ice/otc arthritis creams, unable to wear wrist braces due to thumb pain, director long term care pain recommendations per pain clinic/improved with injections, weightbearing exercises/stretching, 04/06/23:was on enbrel. Taking cimzia had 3rd injection yesterday. Neurontin, elavil, flexeril, mobic, last week Left forearm wound, infected 2days later when to ED, treated with oral antibiotics, tetanus injections, xrays negative for fracture. Fall a lot, due to crystals brain. Seeing neurology. 03/04/23 recent oral steroids. Saw shoulder injections 12/2022 and 04/06/23 left wrist steroid injections with some response. 70% improvement from cimzia. Saw ortho offered cleaning left wrist and fusion but patient declined. limited exercise due to pain. Left swelling. Chronic current pain in left wrists, Right shoulder, worse pain with weather change. Reports pain 7/10. Has minimal AM stiffness. Raynauds stable. Feels safe at home. Has enough food, supplies and medications. Overall mildly uncomfortable but happy with rheum care. No falls/fx/trauma/illness/oral sores/rash/hairloss/jaw pain/dysphagia/epistaxis/hemoptys is since last visit. No adverse effects with meds. No other complaints. Patient denies fever, chills, cp, dyspnea, nausea, vomiting, night sweats, scalp tenderness, visual changes, cadena, bowel/bladder changes, weight changes or other complaints. Last visit supportive care, start fall precautions, see neurology for dizziness/crystals care, see primary care provider for depression care/concern about low glucose, flexeril prn, prn neurontin, see derm, see GI, biotene products, follow up with ortho for s/p L CTS care/possible L thumb/wrist ganglion cyst care, on cardizem per PCP/ok to increase for winter, raynauds general measures, wear heated hand glove liners, for flares take prednisone ashanti, f/u ENT for TMJ growth/pain, f/u spine/PT, enbrel 50mg sq injection TWICE a week since 08/2015 since SSZ/methotrexate not tolerated, did discuss alternative biologics if high APRs, prn heat/ice/otc arthritis creams, unable to wear wrist braces due to thumb pain, correction pain recommendations per pain clinic/improved with injections, weightbearing exercises/stretching 08/28/22:reports dry eyes/mouth, headache, numbness, memory loss, gerd, weight changes. taking flexeril, elavil, enbrel, neurontin 300mg 1-2cap twice a day, mvi. Fell months ago, tooth crack. Multiple falls, crystals, prescribed medication made her worse, will see soon. back injection of steroids a few months ago. No recent oral steroids. 70% improvement from enbrel. Was off for a months due to insurance and felt worse and more pain all over. no exercise due to dizziness. Left wrist swelling. Chronic current pain in left buttocks, low back, left hand/wrists. Reports pain 7/10. Has 30min minimal AM stiffness. More raynauds of fingers, multiple cuts, slow healing, no digital ulcer. 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 Feels safe at home. Has enough food, supplies and medications. Overall mildly uncomfortable but happy with rheum care. No falls/fx/trauma/illness/oral sores/rash/hairloss/jaw pain/dysphagia/epistaxis/hemoptys is since last visit. No adverse effects with meds. No other complaints. Patient denies fever, chills, cp, dyspnea, nausea, vomiting, night sweats, scalp tenderness, visual changes, cadena, bowel/bladder changes, or other complaints. Last visit supportive care, see neurology, see primary care provider for depression care, increase flexeril prn, increase prn neurontin, see derm, see GI, biotene products, follow up with ortho for s/p L CTS care/possible L thumb/wrist ganglion cyst care, on cardizem per PCP/ok to increase for winter, raynauds general measures, wear heated hand glove liners, for flares take prednisone ashanti, f/u ENT for TMJ growth/pain, f/u spine/PT, enbrel 50mg sq injection TWICE a week since 08/2015 since SSZ/methotrexate not tolerated, did discuss alternative biologics if high APRs, prn heat/ice/otc arthritis creams, unable to wear wrist braces due to thumb pain, director long term care pain recommendations per pain clinic/improved with injections, weightbearing exercises/stretching, 11/11/21:had COVID19 infection end of 2020, no antibody infusion, treated with steroids, missed enbrel x 3weeks. Still tired since infection, still has loss of taste and smell. Lost 60lbs. taking elavil, mobic, neurontin 5caps per day, flexeril, enbrel, biotin, vitamin D two gummies, vitamin b12 two gummies. 50-60% improvement from enbrel. Chronic current pain in back, hands, arms. Will see neurology. 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 Reports pain 12/11. minimal AM stiffness. No COVID, flu vaccine. Stopped advil since it gave her headaches. Taking tylenol. raynauds stable. Feels safe at home. Has enough food, supplies and medications. Overall uncomfortable but happy with rheum care. No falls/fx/trauma/illness/oral sores/rash/hairloss/jaw pain/dysphagia/epistaxis/hemoptys is since last visit. No adverse effects with meds. No other complaints. Patient denies fever, chills, cp, dyspnea, nausea, vomiting, night sweats, scalp tenderness, visual changes, cadena, bowel/bladder changes, weight changes or other complaints. Last visit supportive care, [place] for COVID vaccines and booster, see primary care provider for depression care, increase flexeril prn, increase prn neurontin, see derm, see GI, biotene products, follow up with ortho for s/p L CTS care/possible L thumb/wrist ganglion cyst care, on cardizem per PCP/ok to increase for winter, raynauds general measures, wear heated hand glove liners, for flares take prednisone ashanti, f/u ENT for TMJ growth/pain, f/u with PCP/neurology for memory changes, f/u spine/PT, enbrel 50mg sq injection TWICE a week since 08/2015 since SSZ/methotrexate not tolerated, did discuss alternative biologics if high APRs, prn heat/ice/otc arthritis creams, unable to wear wrist braces due to thumb pain, director long term care pain recommendations per pain clinic/improved with injections, weightbearing exercises/stretching 01/19/21:no COVID vaccines yet. Has enbrel twice a week. Had steroids once since last office visit for joint pain flare. Needs elavil refilled, it helps her sleep. Taking advil. Reports pain 11/11. Minimal Am stiffness. Chronic pain in hands/back/legs. Jaw pain better. More raynauds worse with A/C. Better with gloves. More R index deviated. L 5th finger chronically flexed, surgery for finger 11/2020. Now has diabetes. Taking neurontin. Feels safe at home. Has enough food, supplies. Overall mildly uncomfortable but happy with rheum care. No falls/fx/trauma/illness/oral sores/rash/hairloss/jaw pain/dysphagia/epistaxis/hemoptys is since last visit. No adverse effects with meds. No other complaints. Patient denies fever, chills, cp, dyspnea, nausea, vomiting, night sweats, scalp tenderness, visual changes, cadena, bowel/bladder changes, weight changes or other complaints. Last visit supportive care, see primary care provider for depression care, increase flexeril prn, increase prn neurontin, see derm, see GI, biotene products, follow up with ortho for s/p L CTS care/possible L thumb/wrist ganglion cyst care, on cardizem per PCP/ok to increase for winter, raynauds general measures, wear heated hand glove liners, for flares take prednisone ashanti, f/u ENT for TMJ growth/pain, f/u with PCP/neurology for memory changes, f/u spine/PT, enbrel 50mg sq injection TWICE a week since 08/2015 since SSZ/methotrexate not tolerated, did discuss alternative biologics if high APRs, prn heat/ice/otc arthritis creams, unable to wear wrist braces due to thumb pain, correction pain recommendations per pain clinic/improved with injections, weightbearing exercises/stretching, 07/14/20:no response with last neck injection. Due for neck epidural soon. More hand pain. Falls occasionally due to balance. Difficulty holding phone. No response with voltaren. Had dexamethasone but kept her up at night for days, with mild response with hands. Taking neurontin 1cap in AM and noon, 2caps at night has leg cramps. Taking flexeril 1 tab in AM and non, 2caps at night. Tried over the counter supplement for cramps. Feels safe at home. Has enough food, supplies and medications. TMJ stable. Oral sores better. Did not have ganglion cysts removed due fo pandemic. Reports pain 6-12/11. Extended AM stiffness. raynauds stable, not interested in COVID vaccine, Overall mildly uncomfortable but happy with rheum care. No fx/trauma/illness/oral sores/rash/hairloss/jaw pain/dysphagia/epistaxis/hemoptys is since last visit. No adverse effects with meds. No other complaints. Patient denies fever, chills, cp, dyspnea, nausea, vomiting, night sweats, scalp tenderness, visual changes, cadena, bowel/bladder changes, weight changes or other complaints. Last visit supportive care, see derm, see GI, biotene products, follow up with ortho for s/p L CTS care/possible L thumb/wrist ganglion cyst care, on cardizem per PCP/ok to increase for winter, raynauds general measures, wear heated hand glove liners, for flares take prednisone ashanti, f/u ENT for TMJ growth/pain, f/u with PCP/neurology for memory changes, f/u spine/PT, enbrel 50mg sq injection TWICE a week since 08/2015 since SSZ/methotrexate not tolerated, did discuss alternative biologics if high APRs, prn heat/ice/otc arthritis creams, unable to wear wrist braces due to thumb pain, director long term care pain recommendations per pain clinic/improved with SI injections, weightbearing exercises/stretching 01/12/20:had 3RFAs for low back pain, not sure if working/helping yet. TMJ better with prednisone. Feet/ankles R>L swelling from CCB, but stopped and no more swelling. Oral sores, worse after accidental biting. Worse raynauds white fingers. R great toe aches. Reports pain 01/11. Minimal AM stiffness. Two ganglion cyst due for removed. S/p L CTS release. Not sure if enbrel still working or if the increased stress has made her symptoms worse. Usually stays at home. Feels safe at home. Has enough food, supplies and medications. Overall mildly uncomfortable but happy with rheum care. No falls/fx/trauma/illness/oral sores/rash/hairloss/jaw pain/dysphagia/epistaxis/hemoptys is since last visit. No adverse effects with meds. No other complaints. Patient denies fever, chills, cp, dyspnea, nausea, vomiting, night sweats, scalp tenderness, visual changes, cadena, bowel/bladder changes, weight changes or other complaints. Last visit supportive care, see derm, see GI, biotene products, follow up with ortho for s/p L CTS release/possible L thumb/wrist ganglion cyst care, on cardizem per PCP/ok to increase for winter, raynauds general measures, wear heated hand glove liners, for flares take prednisone ashanti, f/u ENT for TMJ growth/pain, f/u with PCP/neurology for memory changes, f/u spine/PT, enbrel 50mg sq injection TWICE a week since 08/2015 since SSZ/methotrexate not tolerated, prn heat/ice/otc arthritis creams, unable to wear wrist braces due to thumb pain, correction pain recommendations per pain clinic/improved with SI injections, weightbearing exercises/stretching 07/24/19;had SI low steroid injections improved bilaterally ankle swelling and made it easier for her to get up out of bed. The ankle swelling not improved with oral prednisone. On neurontin/cardizem. [place] worse when she ran out of acyclovir from neurology. Had L cts release 02/2019 with minimal response. May have L thumb/wrist ganglion cyst removal in future. Taking enbrel. Not taking vitamin b12. Tired. Reports pain /10. Minimal Am stiffness. Overall mildly uncomfortable but happy with rheum care.No falls/fx/trauma/illness/oral sores/rash/hairloss/jaw pain/dysphagia/epistaxis/hemoptys is since last visit. No adverse effects with meds. No other complaints. Patient denies fever, chills, cp, dyspnea, nausea, vomiting, night sweats, scalp tenderness, visual changes, cadena, bowel/bladder changes, weight changes or other complaints. Last visit supportive care, see derm, see GI, biotene products, follow up with ortho for L CTS release fall 2017, on cardizem per PCP/ok to increase for winter, raynauds general measures, wear heated hand glove liners, for flares take prednisone ashanti, f/u ENT for TMJ growth/pain, f/u with PCP/neurology for memory changes, f/u spine/PT, enbrel 50mg sq injection TWICE a week since 08/2015 since SSZ/methotrexate not tolerated, prn heat/ice/otc arthritis creams, unable to wear wrist braces due to thumb pain, f/u with ortho for cts care, director long term care pain recommendations per pain clinic/PCP, weightbearing exercises/stretching 01/09/19:had a flares of hand pain better with prednisone. S/p L CTS 2weeks and had scar of L index fingertip scar. Still has numbness and tingling of fingers. In OT/PT now. Fingertip split when cold, on cardizem, hand warmers. 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 Back on rheum meds. Whit dots and wart on back of hands. Sees pain clinic. Same neck and low back pain. Reports pain /10. Minimal AM stiffness. Overall mildly uncomfortable but happy with rheum care. No falls/fx/trauma/illness/oral sores/rash/hairloss/jaw pain/dysphagia/epistaxis/hemoptys is since last visit. No adverse effects with meds. No other complaints. Patient denies fever, chills, cp, dyspnea, nausea, vomiting, night sweats, scalp tenderness, visual changes, cadena, bowel/bladder changes, weight changes or other complaints. Last visit supportive care, consult derm, consult GI, start biotene products, follow up with ortho for L CTS release fall 2018, on cardizem per PCP/ok to increase if needed, raynauds general measures, if needed wearing heated hand glove liners, for flares take prednisone ashanti, f/u ENT for TMJ growth/pain, f/u with PCP/neurology for memory changes, f/u spine/PT, enbrel 50mg sq injection TWICE a week since 08/2015 since SSZ/methotrexate not tolerated, prn heat/ice/otc arthritis creams, unable to wear wrist braces due to thumb pain, f/u with ortho for cts care, correction pain recommendations per pain clinic/PCP, weightbearing exercises/stretching, 01/17/18:has not missed enbrel. primary care provider started BP medication cardizem. Worsening dry mouth. raynauds stable. Summertime 2017 wart like bumps on hands/forearms crawl up arms. More numbness of L>R hand, episodes on thighs and abdomen. Due L CTS release fall 2017. Occasional food getting stuck swallowing. Vomits at night/sleeping. Building playground for 2y/o grandson. Reports pain 12/11. Minimal AM stiffness. Does exercises at home. Overall mildly uncomfortable but happy with rheum care. No falls/fx/trauma/illness/oral sores/rash/hairloss/jaw pain/dysphagia/epistaxis/hemoptys is since last visit. No adverse effects with meds. No other complaints. Patient denies fever, chills, cp, dyspnea, nausea, vomiting, night sweats, scalp tenderness, visual changes, cadena, bowel/bladder changes, weight changes or other complaints. Last visit supportive care, on cardizem per PCP/ok to increase if needed, start raynauds general measures, start wearing heated hand glove liners, for flares take prednisone ashanti, f/u ENT for TMJ growth/pain, f/u with PCP/neurology for memory changes, f/u spine/PT, enbrel 50mg sq injection TWICE a week since 08/2015 since SSZ/methotrexate not tolerated, prn heat/ice/otc arthritis creams, unable to wear wrist braces due to thumb pain, f/u with ortho for cts care, director long term care pain recommendations per pain clinic/PCP, weightbearing exercises/stretching 05/10/17:reports 610 mid-lower back, bilateral hands/fingers, neck, constant, aching. Minimal AM stiffness. here for raynaud's ulcer on her left hand middle digit by PIP started last week. Fingers/toes painful and cold for last few months. Was on coreg, but PCP stopped med and started cardizem last week. Worse with band-aid. Has not tried heated gloves. Has not missed enbrel. Sees pain clinic, last injections did not help. Overall mildly uncomfortable but happy with rheum care. No falls/fx/trauma/illness/oral sores/rash/hairloss/jaw pain/dysphagia/epistaxis/hemoptys is since last visit. No adverse effects with meds. No other complaints. Patient denies fever, chills, cp, dyspnea, nausea, vomiting, night sweats, scalp tenderness, visual changes, cadena, bowel/bladder changes, weight changes or other complaints. 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 Had xrays of L wrist/hand showing prior fracture, she does not recall prior trauma. Has not missed enbrel twice a week injections. Overall mildly uncomfortable but happy with rheum care. No falls/fx/trauma/illness/oral sores/rash/hairloss/jaw pain/dysphagia/epistaxis/hemoptys is since last visit. No adverse effects with meds. No other complaints. Patient denies fever, chills, cp, dyspnea, nausea, vomiting, night sweats, scalp tenderness, visual changes, cadena, bowel/bladder changes, weight changes or other complaints. 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 minimal AM stiffness. Not seen since 12/2015. Had illness 07/2016 but did not see PCP. Did hold 3 enbrel injections. Afraid to hold enbrel too long due to fear of getting a bad joint pain flare. Still very tired/exhausted since illness. Joint pain better with twice a week enbrel. Had severe jaw pain, went to ED twice, not helpful. Now with right chest bone pain lately. Does well with steroids. No steroids since last OV. Overall doing ok and happy with care. No falls/fx/trauma/illness/oral sores/rash/hairloss/jaw pain/dysphagia/epistaxis/hemoptys is since last visit. No adverse effects with meds. No other complaints. Patient denies fever, chills, cp, dyspnea, nausea, vomiting, night sweats, scalp tenderness, visual changes, cadena, bowel/bladder changes, weight changes or other complaints. Last visit supportive care, f/u ENT for TMJ growth/pain, f/u with PCP/neurology for memory changes, f/u spine/PT, enbrel 50mg sq injection TWICE a week since 08/2015 since SSZ/methotrexate not tolerated, prn heat/ice/otc arthritis creams, unable to wear wrist braces due to thumb pain, f/u with ortho for cts care, director long term care pain recommendations per pain clinic/PCP, weightbearing exercises/stretching 12/16/15:reports had injection with pain mgt RLE sciatica better, but now has pain coming from Right SI joint. Fell last week RLE gave out, fell on buttocks. Will see pain clinic for further injections. Used to have neck pain, better now. Approved for enbrel twice a week in 08/2015. Has not missed enbrel. Low back pain 12/11. Minimal AM stiffness. TMJ better. Had eye exam last week. Blurry R eye off and on. Will f/u with eye exam again soon. Able to work 3 good hrs a day. Built screen around front porch and back deck area by herself. Numbness and tingling of hands ok. Still has some memory changes. Unsure what vit D dose she is taking or if she completed BMD yet. Overall doing ok and happy with care. No fx/trauma/illness/oral sores/rash/hairloss/jaw pain/dysphagia/epistaxis/hemoptys is since last visit. No adverse effects with meds. No other complaints. Patient denies fever, chills, cp, dyspnea, nausea, vomiting, night sweats, scalp tenderness, visual changes, cadena, bowel/bladder changes, weight changes or other complaints. Last visit supportive care, consult ENT for TMJ growth/pain, f/u with PCP/neurology for memory changes, f/u spine/PT, scheduled for emg/xrays, enbrel 50mg sq injection once a week (increase twice a week if approved since SSZ/methotrexate not tolerated), prn heat/ice/otc arthritis creams, unable to wear wrist braces due to thumb pain, f/u with ortho for cts care, correction pain recommendations per pain clinic/PCP, weightbearing exercises/stretching See notes 07/14/20-08/12/15 for details on prior visits 08/12/15:had EMG with mild CTS. More memory changes lately. Had good response with prednisone for 1-2weeks. Has not missed enbrel. Adverse effects with SSZ and methotrexate/no response. Reports 5/10 lower back, constant. Minimal AM stiffness. More b/l leg cramps at night. Not better with increase of neurontin. Noticed swelling of L TMJ area/painful lump. Chronic memory changes, did not remember phone call about results (and difficulty remembering results discussed at this OV at the end of OV.) Has not seen neurology. Back pain better with injections. Overall doing ok and happy with care. No falls/fx/trauma/illness/oral sores/rash/hairloss/jaw pain/dysphagia/epistaxis/hemoptys is since last visit. No adverse effects with meds. No other complaints. Patient denies fever, chills, cp, dyspnea, nausea, vomiting, night sweats, scalp tenderness, visual changes, cadena, bowel/bladder changes, weight changes or other complaints. Last visit supportive care, start trial pred ashanti, consult spine/PT, check emg/xrays, enbrel 50mg sq injection once a week, prn heat/ice/otc arthritis creams, unable to wear wrist braces due to thumb pain, f/u with ortho for cts care, director long term care pain recommendations per pain clinic/may consider increasing neurontin, weightbearing exercises/stretching 06/11/15 HPI: here for eval Moving care closer to home. Neck pain started mid 20s Back pain started Finger pain started 30years ago 2005 developed R foot numbness, spinal cord pinch, same still -dx by Lyndsay approx 5 years ago Pain c/o pain and stiffness, /, tailbone constant ache, increse stiffness with sitting numbness hands when driving Sees pain clinic in [place] c/o left neck pain; states bilat arms buzzing and go numb constant 10/28/14 1. Anklylosing spondylitis / axial spondyloarthritis Sero-negative History of treatment with hydroxychloroquine and methotrexate without benefit Had unknown reaction to sulfasalazine more back days on humira 2006 Currently on Enbrel 2006-present Difficult to assess which symptoms are due to inflammatory disease and which are due to degenerative disease and / or chronic pain issues 2. Cervical spondylosis/DDD 3. Lumbar spondylosis/DDD 4. Osteoarthritis 5. Chondrocalcinosis of R knee Post-traumatic 6. Chronic pain She is being treated aggressively for this. 7. Osteoarthritis hips 05/16: R KATIA, 09/15: L KATIA 8. ? Vascular insufficiency 9. Palpitations Mild tachycardia 10. Hypertension 11. Syncope Cardiology and Neurology evaluations done 12. Nodules on fingers 13. Right wrist painMay be tendinous Appears to be benign RHEUM. ROS: Joint pain: yes -neck, low back, fingers Joint swelling: fingers Am stiffness: yes Low back pain: yes- back injections, completed PT Enthesopathy/Nettie's/heel/plant ar tenderness: s/p R cts 1990s Alpecia, patchy: yes 10years Eye inflammation: contacts, 2010 R iritis (has had more than once);last eyes exam 06/2014 [facility]: dry eyes/mouth GI problems-diarrhea/bleeding/IBD/Gl uten intolerence/Dysphagia: gerd Raynaud's phenomenon/digital ulcers: yes- white/red Organ inv-Serositis: childhood asthma Lung disease/ILD:childhood asthma Fatigue: yes, sleeps 8hr/night PMR/GCA ROS: negative Other ROS:The remainder of the review of systems is negative. 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 Industrial toxic exposures:no TESTS: 12/25/23 high crp 1.1 (NL0-0.744mg/dL), glucose 140, vitamin b12>1500;low hgb 10.6normal cmp, potassium 3.8, creat 0.83, calcium 9, alkaline phosphatase 69, ast 15, alt 12, vitamin D 53.8, wbc 6.9, plts 317;negative quantiferon tb; [facility] 07/03/23 normal cmp, potassium 4.1, creat 0.81, glucose 71, calcium 9, alkaline phosphatase 74, ast 18, alt 16, crp 0.2 (NL0-0.744mg/dL), vitamin D 54.4, cbc, wbc 5.6, hgb 11.8, plts 272, esr 30 (normal 0-30mm/hr) 05/07/23 last dose cimzia 06/27/23 restart enbrel [facility] 02/16/23 normal vitamin D 58.2, glucose 85, crp 0.1 (normal 0-0.744mg/dL), esr 17, wbc 5, hgb 12.1, plts 230, cmp, creat 0.77, calcium 9, 01/2023 hip xrays-Post arthroplasty changes with intact bilateral hip prostheses Outside 12/2022 neck xrays-Multilevel facet arthropathy. Anterolisthesis of C3 on C4 measuring 2 mm, C4 on C5 measuring 2 mm, and C7 on T1 measuring 3 mm. Multilevel disc related degenerative disease most prominent at C5-6 and C6-7. 12/2022 shoulder xrays-Severe AC joint and glenohumeral joint arthritis. [facility] 11/07/22 low hgb 11.6;normal cmp, glucose 130, potassium 4, creat 0.94, calcium 9.2, alkaline phosphatase 5, ast 12, alt 18, vitamin D 53.2, esr 9 (NL0-30mm/hr), crp 0.1 (NL0-0.744mg/dL), wbc 7.9, plts 283; [facility]; 07/06/22 left hand xrays- advanced degenerative joint disease throughout the wrist with appearances most compatible with advanced osteoarthritis associated with with chondrocalcinosis. Osteoarthritis superimposed upon an underlying inflammatory arthropathy is possible given extensive abnormality involving wrist. Milder osteoarthritis within several of the DIP. [facility] 08/14/22 high vitamin b12>1500pg/mL;normal cmp, potassium 4.1, creat 0.84, glucose 74, calcium 8.8, alkaline phosphatase 47, ast 13, alt 20, crp<0.1 (0-0.74mg/dL), vitamin D 56.7, wbc 6.1, hgb 12.2, plts 252, esr 10 (NL0-30mm/hr);negative quantiferon tb; [facility] 11/18/21 borderline creat 1.03;NL rest of cmp, potassium 4.3, calcium 9.1, alkaline phosphatase 66, ast 17, alt 17, glucose 90, crp 0.5 (NL0-0.744mg/dl), vitamin D 64.5, wbc 5.3, hgb 11.8, plts 223, esr 18 (NL0-30mm/hr); 01/19/21 high glu 172;borderline esr 20 (25);NL crp 0.6 (0.9), cbc, cmp; outside 11/09/20 high creat 1.06;NL rest of cmp, wbc 4.9, hgb 12.8, plts 265; 07/14/20 high gluc 178, crp 0.9 (0.4), esr 25 (17);low vitamin B12-498 (403);NL vitamin D 40.8, rest of cbc, cmp;negative hepatitis panel, quantiferon tb; 01/12/20 normal cbc, cmp, esr 17 (25), crp 0.4, vitamin D 50.6, vitamin b12-403; 07/24/19 low vitamin b12-428;NL cbc, cmp, gluc 121, esr 25 (23), crp 0.6 (1), vitamin D 72.2; 01/09/19 high esr 23 (15), crp 1 (0.2);low vitamin b12-243;NL rest of cbc, cmp, vitamin D 71.8 (81.4), creatinine 0.87 (1.2), cmp, cbc, uric acid 4.8;negative quantiferon tb; 01/17/18 high creatinine 1.2 (0.99), vitamin D 81.4 (64.5);NL rest of cbc, cmp, esr 15, crp 0.2;negative [place] ifa, alek, quantiferon tb; 04/02/17 high potassium 5.2, creatinine 0.99 (0.9);NL rest of cbc, cmp, esr 17 (24), crp 0.2, vit D 64.5; [facility] 08/04/16 low wbc 4.3;NL hgb 12.6, plts 231, esr 26 (NL0-30mm/hr);cmp, creatinine 0.96, calcium, 9.1, ast 14, alt 19, crp 0.4 (NL0-0.74mg/dL), vit D 37.5;negative quantiferon tb [facility] 08/2016 L wrist xrays-1. No definitive acute osseous abnormalities.2. Suspect mild soft tissue swelling in the dorsum of the wrist.3. Degenerative and old posttraumatic changes as noted above. 4. Consider MRI of the wrist to further evaluate if there remains concern for an acute process.Degenerative changes of the first carpometacarpal articulation. Well-corticated ossific densities are identified adjacent to the ulnar styloid possibly related to remote trauma. Minimal protuberance adjacent to the physeal scar of doubtful clinical significance. This could also relate to remote trauma. Well-corticated ossific densities noted adjacent to the radial styloid as well with degenerative changes of the radiocarpal joint. If there is persistent pain in the anatomical snuffbox, recommend followup films in 7-10 days 08/12/15 TMJ xrays-Both mandibular condyles show normal excursion in the open and closed mouth views with the left condyle only partially occupying the condyloid fossa. Mild irregularity of the articular surface of the right mandibular condyle. 06/11/15 high esr 23(26);NL crp 0.3, cbc, cmp, vit D 37; 06/11/15 cervical spine xrays-Degenerative changes of the cervical spine as detailed above.Endplate degenerative changes most pronounced at C5-6.Neural foraminal narrowing most pronounced at C5-6 and C6-7 on the right 10/28/14 NL lfts, cbc, creat 1.01, crp 0.5; 10/2014 R wrist xrays-There are postsurgical changes of previous trapezium resection. Appearance is unchanged from 10/08/09. A few small residual bone fragments are noted in the area of resection. 01/2014 negative RF 10 09/18/13 low hgb 08/2013 negative [place], lupus anticoag panel;NL c3, c4; 04/2013 hip xrays-significant progression joint space loss bilaterally, disruption of the subchondral plates, enlargement of the left acetabular roof cyst and surrounding sclerosis and development of multiple right femoro- acetabular cysts. There also has been slight increase in facet sclerosis about the lower lumbar spine. An incidental finding is a small focus of calcification in the deep subcutaneous tissues of the proximal right thigh which may represent an area of fat necrosis and not felt to be clinically significant.IMPRESSIONSIGNIFICANT PROGRESSION OF BILATERAL DEGENERATIVE ARTHRITIS OF THE HIP JOINTS IN COMPARISON WITH AN EXAMINATION OF OVER 3 YEARS AGO. 03/2013 high esr 26; 11/2010 lumbar xrays-Lumbar spine: There is severe disk height loss at L5-S1 with endplate spurring, slightly progressed from the 2008. The remainder of the disks are relatively maintained. Small endplate spurs at L2-3 and L3-4. Multilevel mild facet joint degenerative changes. Vertebral body heights and alignment normal. 11/2010 hip xrays-Limited view of the pelvis incompletely demonstrates severe superolateral joint space narrowing of the left hip with a prominent acetabular subchondral cyst, more advanced compared to 10/08/2009. Sacroiliac joints are maintained. 11/2010 Thoracic spine xrays: There is disc height loss in the lower thoracic spine with endplate osteophytes, moderate to severe at T11-12, unchanged. Vertebral body heights are preserved. Limited view of the cervical spine again demonstrates mild C3 on C4 and C4 on C5 anterolisthesis, unchanged. Alignment is otherwise anatomic. IMPRESSION:1. NO ACUTE ABNORMALITY. 2. MARKED DEGENERATIVE DISC DISEASE L5-S1. 3. MODERATE MARKED DEGENERATIVE DISEASE T11-12.4. DEGENERATIVE ARTHRITIS IN BOTH HIPS 09/2007 negative hla b27 07/2007 negative rf, ccp, [place] ifa, [facility], dsdna<12, hepatitis panel Additional pertinent test results reviewed in medical chart PHYSICAL EXAM reviewed vitals from last visit BP 112/74 Pulse 81 Wt 205 lb 6.4 oz (93.2kg) SpO2 94% LMP 05/12/2006 BP 144/93 Pulse 76 Wt 79.8 kg (176 lb) LMP 05/12/2006 BMI 25.99 kg/m General Appearance: WD/WN, NAD. Appropriate grooming. Very pleasant. Slender. Ambulates fair without assistance or assistive devices, denies SI/HI, uncomfortable SKIN: No rash, no psoriasis, no purpura, no ulcers, no skin thickening/tightness, no telangiectasias. HEENT: No patchy alopecia, normal temporal artery pulsations, non-tender, scalp non-tender, no conjunctival injection or icterus, no oral ulcers, no thrush, normal nasal mucosa, no sinus tenderness, normal TM's. Yes contacts, fair dentition NECK: neck supple w/o masses, no thyromegaly, no LAD. LUNGS: CTA, Good respiratory effort. HEART: RRR, - m/r/g ABDOMEN: soft, non-tender, no HSM/masses/bruits. EXTREMITIES: Adequate pulses b/l UE; No clubbing,discoloration,sclerodact yly, periungual erythema, digital ulcers, nail pitting, edema, varicosities. MUSCULOSK: s/p b/l THR, s/p L CTS, s/p L index fingertip scar tissue removed No joint deformities, no rheumatoid nodules, calcifications or tophi. No SI tenderness, no nettie's tenderness, no heel/plantar tenderness, lumbar flexion full, 3inches neck to wall Back flexion 12inches [place] JTS:R 2nd/3rd MCPs, R 2nd/3rd fingers, R>L hands/wrists, two cysts on L wrist Tend. JTS:2nd/3rd MCPs, R 2nd/3rd fingers, R>L hands/wrists, lumbar back, cervical area/limited range of motion, less R chest wall/bone pain, R SI joint area;decreased range of motion of neck and back due to pain;no warmth/erythema No clinical synovitis in the DIP's, PIP's, MCP's, wrists, elbows, shoulders, knees, ankles, midfoot, or toes. no knee effusions bilateral. Shoulder exam:full range of motion; no warmth/erythema Hip rom without pain LIMITATION of Motion of Joints: yes Thoracic/Lumbar Spine: No percussion tenderness SLR:negative No instability in any upper or lower extremity joints. NEURO: Mental Status: alert and oriented x 3, anxious, CN II - XII grossly intact Motor: 5/5 proximally and distally b/l Sensory: intact to fine touch TENDER POINTS: 0/18 Gait: Normal w/o assistive devices Toe and heel walk normal. 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, multiple sites M53.3, G89.29 Chronic sacroiliac joint pain M15.3 Secondary osteoarthritis of multiple sites M54.50, G89.29 Chronic bilateral low back pain without sciatica E53.8 Vitamin B12 deficiency M65.9 Synovitis of right hand 63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[employer] with PMH:venous insufficiency, htn, s/p tubal ligation, palpitations, 05/2013 s/p R THR, 09/2013 s/p L THR, s/p R cts 1990s, 2009 R iritis (has had more than once), gerd, childhood asthma, uterine fibroids presents Neck pain started mid 20s, Back pain started , Finger pain started 30years ago 2005 developed R foot numbness, spinal cord pinch, same still, diagnosed with 2009, has numbness and tingling of hands/arms with certain positions, chronic neck/back pain/limited range of motion, djd on imaging, high esr, limited neck to wall/limited spinal flexion, negative hla b27, has findings with history of seronegative inflammatory arthritis/ankylosing spondylitis, repeated R eye iritis, djd, cervicalgia, lumbago, possible cts, here with L TMJ bony growth/painful, chronic memory changes, chronic back pain, R SI joint area, history of costochondritis, raynaud's symptoms, numbness of L>R hand, episodes on thighs and abdomen, more dry mouth, food getting stuck swallowing, had a flares of hand pain better with prednisone. S/p L CTS 2weeks and had scar of L index fingertip scar. Still has numbness and tingling of fingers. had SI low steroid injections improved bilaterally ankle swelling and made it easier for her to get up out of bed. The ankle swelling not improved with oral prednisone. [place] worse when she ran out of acyclovir from neurology. Had L cts release 02/2019 with minimal response. Taking enbrel. had 3RFAs for low back pain, not sure if working/helping yet. TMJ better with prednisone. Feet/ankles R>L swelling from CCB, but stopped and no more swelling. raynauds white fingers/same. S/p L CTS release. no response with last neck injection. Falls occasionally due to balance. Difficulty holding phone. No response with voltaren. Had dexamethasone but kept her up at night for days, with mild response with hands. Tried over the counter supplement for cramps. TMJ stable. Oral sores better. Did not have ganglion cysts removed due fo pandemic.elavil helps her sleep. More raynauds worse with A/C. Better with gloves. More R index deviated. L 5th finger chronically flexed, surgery for finger 11/2020. Now has diabetes. had COVID19 infection end of 2020, no antibody infusion, treated with steroids,Had Lost 60lbs. 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 No COVID, flu vaccine. Stopped advil since it gave her headaches. Taking tylenol. back injection of steroids in the past. Was off enbrel for a months due to insurance and felt worse and more pain all over.in past Left forearm wound, infected 2days later when to ED, treated with oral antibiotics, tetanus injections, xrays negative for fracture. Fall a lot, due to crystals brain. Seeing neurology. 03/04/23 recent oral steroids. Saw shoulder injections 12/2022 and 04/06/23 left wrist steroid injections with some response. 70% improvement from cimzia. Saw ortho offered cleaning left wrist and fusion but patient declined. limited exercise due to pain. taking flexeril, gabapentin, elavil, off vitamin D script, enbrel (but insurance only approves 50mg sq injection once a week even if patient was better with twice a week for years) just started recent oral steroids. 3-4months ago eye exam, worsening cataracts.. Raynauds better with warmer weather, no digital ulcers. Fell a few times. 01/18/24 due for left shoulder injection 12/25/23 seen for neck pain 12/25/23 high crp 1.1 (NL0-0.744mg/dL), glucose 140, vitamin b12>1500;low hgb 10.6normal cmp, potassium 3.8, creat 0.83, calcium 9, alkaline phosphatase 69, ast 15, alt 12, vitamin D 53.8, wbc 6.9, plts 317;negative quantiferon tb; 11/30/23 had right shoulder injection [facility] 07/03/23 normal cmp, potassium 4.1, creat 0.81, glucose 71, calcium 9, alkaline phosphatase 74, ast 18, alt 16, crp 0.2 (NL0-0.744mg/dL), vitamin D 54.4, cbc, wbc 5.6, hgb 11.8, plts 272, esr 30 (normal 0-30mm/hr) 05/07/23 last dose cimzia 06/27/23 restart enbrel 50-75% improvement from enbrel, worse pain since late for medication and decreased to once a week. limited exercise due to pain. R 2nd/3rd MCP, R hand swelling. Chronic current pain in R hand now claw like, unable close and flatten, L>R hips, low back, legs cramp . More neck crunching, left hip popping(10years since hip surgery). Reports pain 01/11. Has 2hr minimal AM stiffness. Feels safe at home. Has enough food, supplies and medications. Overall uncomfortable but happy with rheum care. Will complete workup for reported symptoms = supportive care, check labs, may start methotrexate and folic acid if symptoms persist/worsens, restart fall precautions, see neurology for dizziness/crystals care, see primary care provider for depression care/concern about low glucose, flexeril prn, prn neurontin, see derm, see GI, biotene products, follow up with ortho for s/p L CTS care/improved with injections/may try for shoulder/R hand, on cardizem per PCP/ok to increase for winter, raynauds general measures, wear heated hand glove liners, for flares take prednisone [place], f/u ENT for TMJ growth/pain, f/u spine/PT, tolerating cimzia as instructed, OFF enbrel 50mg sq injection TWICE a week since 08/2015 since SSZ/methotrexate not tolerated, did discuss alternative biologics if high APRs, prn heat/ice/otc arthritis creams, unable to wear wrist braces due to thumb pain, 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 RECOMMENDATION/PLAN: Reviewed labs/tests with patient Provided printed info 01/17/24 check cmp, cbc, esr, crp, vit D every 3months, printed orders, yearly quantiferon tb Modified01/17/24 EAGLE 0, pain 80%;04/06/23 EAGLE 0, pain 70%;08/28/22 EAGLE 0, pain 70%;11/11/21 EAGLE 0, pain 70%;01/19/21 EAGLE 0, pain 60%;07/14/20 EAGLE 0, pain 60-70%;01/12/20 EAGLE 0, pain 80%;07/24/19 EAGLE 0, pain 70%;01/09/19 EAGLE 0, pain 60%;01/17/18 EAGLE 0, pain 70%;05/10/17 EAGLE 0, pain 50-60%;04/02/17 EAGLE 0, pain 70%;09/28/16 EAGLE 0, pain 50-70%;12/16/15 EAGLE 0, pain 70%;08/12/15 EAGLE 0, pain 50%;06/11/15 EAGLE 0.5, pain 60%; 08/12/15 precert increase of enbrel to twice a week May apply over the counter arthritis cream (biofreeze, icy hot, asper cream, tiger balm, capsacin, etc.) to painful joints up to four times a day. Avoid contact with eyes. May take ES acetaminophen 500mg every 4-6hours for joint pain. Do not exceed 3000mg /day. Decrease stress Improve sleep May apply heat/ice 20minutes on and off to areas of pain Avoid aggravating triggers If needed, may take Calcium 1000mg daily with food in DIVIDED doses If labs normal, Vitamin D 4000 International Units daily with food Vitamin b12 as instructed Neurontin/gabapentin as instructed OFF cardizem May apply nitrobid for raynauds as instructed, may cause headaches enbrel 50mg sq injection TWICE a week if approved/currently only approved for once a week Please hold enbrel if on antibiotics or if you have any signs/symptoms of infection. 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 -Vitamin D supplementation recommended, optimal dose is the dose necessary to achieve Vitamin D 25-OH blood level in range of 40-60 ng/mL. (Vitamin D supplement in international units, is the dose necessary to achieve a Vitamin D 25-OH blood level in range of 40-60 ng/mL). -Recommended daily dose of calcium: 1200mg total a day in divided doses. Calcium from dietary sources, if not sufficient, or if with h/o calcium nephrolithiasis would recommend Calcium Citrate supplement, as it is recommended to avoid caclium carbonate products, which as main dietary calcium source. The after visit summary has information on dietary calcium and instructions on reading calcium label and converting the %DV to mg. -Regular weight-bearing and muscle-strengthening exercise -Avoidance of tobacco smoking, excessive alcohol intake and excessive caffeine intake. -Fall and fracture precautions -Continued regular dental follow up visits and good dental/gum care Stressed the importance of following up with PCP and specialists for his/her chronic diseases, health, CV, and cancer screening and continued care. Will follow disease activity/progression and adjust therapeutic regimen to disease activity and severity. Discussed medication dosage, usage, goals of therapy, and side effects. Available test results were reviewed An additional 20 minutes were spent outside of the patient visit to review records. Additional time spent with the patient to discuss their questions. Additional time spent with the patient devoted to discussing treatment strategy, planning, and implementation. Discussed findings, impression and plan with patient. Patient understands above plan; questions asked and answered. Patient agrees to plan as noted above. The above reflects my independent exam and review. I saw and examined the patient myself personally. Parts of the HPI, ROS, exam and impression/plan may have been copied from my personal previous clinical note and remain pertinent. Current changes have been made and documented today. Other parts or data were deleted if not relevant for today. Plan as outlined. Medical decision making was high complexity due to patient's, multiple symptoms, multiple advancing diseases.Total time spent on this visit, with more than 50% of time spent in video & audio (virtual) or phone or face to face with patient, in consultation, and in addition to Counseling and Coordination of Care, explanation of diagnosis, and planning of further management, I spent a total of 30 minutes on the date of the service which included preparing to see the patient, video & audio (virtual) or phone or [id number] patient care, completing clinical documentation, obtaining and/or reviewing separately obtained history, performing a medically appropriate examination, counseling and educating the patient/family/caregiver, ordering medications, tests, or procedures, communicating with other HCPs (not separately reported), independently interpreting results (not separately reported), communicating results to the patient/family/caregiver and care coordination (not separately reported) Follow up 6months, earlier if needed Recommendations to share with referring physician/Primary care physician : Dear Dr. Garcia : I had the pleasure of seeing your patient, . I have enclosed a copy of my clinic note with my assessment and recommendations for this patient. Recommendations for your consideration as you deem necessary: -Continuous follow up with Primary care physician for cardiovascular disease prevention, for age appropriate cancer screening and routine health maintenance and wellness, and infection precautions and age appropriate immunization recommended. Thank you for allowing me to participate in the care of your patient. Eugenio Ellis MD I will relay my findings and recommendations to the physician requesting the consult by letter/electronic shared medical records. cc Rafaela Umana MD;Dr.Jennifer Garcia [address] [facility] [id number] Answers submitted by the patient for this visit: Review of Systems Rheumatology (Submitted on 01/16/2024) Fever : No Recent unintentional weight change: Yes Eye pain: Yes Eye redness: Yes Vision Disturbance: Yes Eye Dryness: Yes Nosebleeds: No Sores in your mouth: No Trouble Swallowing: No Dry Mouth: Yes Chest pain: No Leg Swelling: No A cough: No Shortness of breath: Yes Pain with breathing: No Heartburn: No Abdominal pain: No Diarrhea: No Black tarry stools: No Blood in urine: No Pain or burning with urination: No Joint pain or stiffness: Yes Muscle weakness: Yes Muscle aches: Yes Joint swelling: Yes Morning Stiffness in Joints: Yes A rash: No Skin Color Changes: No Hair Loss: No Nail Changes: No Headaches: No Numbness: No Memory Loss: No Swollen Glands: No MYCHART AMBULATORY VISIT INTAKE QUESTIONNAIRE Question 01/16/2024 2:43 PM EDT - Filed by Patient Has the patient had unintentional weight loss or gain? Yes: Provider notified Do you have concerns about personal safety or safety in the home? No Has the Patient Had 2 Falls in the Last Year or 1 Fall with Injury or Currently Using an Ambulatory Assistive Device (Walker, Cane, Wheelchair, Crutches, etc.) Yes, Patient High Risk for Falls, Notify provider if applicable Are you having pain associated with your visit today? Yes What is your Pain Level? 8 Pain Location Neck Description Aching Cramping Radiating Sharp Sore Stiffness Tenderness Throbbing Tightness Duration Amount of Time 18 Duration Units Hours Frequency Intermittent Intervention/Comfort measure Medication Distractions Positioning Rocking/holding Comments Recent mri, no follow up yet REDUCING YOUR RISK OF FALLING DURING AN MEDICAL APPOINTMENT Question 01/16/2024 2:43 PM EDT - Filed by Patient Fall Prevention Instructions Acknowledged Yes [facility] ADDITIONAL DEMO Question 01/16/2024 2:44 PM EDT - Filed by Patient Is this visit related to an accident, other than Workers' Compensation? No Is this visit related to Workers' Compensation? No Do you need an cable wirer? No [facility] 2019 MSP: PART I AND EMPLOYMENT Question 01/16/2024 2:45 PM EDT - Filed by Patient Are you currently employed? No Do you have a spouse who is currently employed? No [facility] 2019 MSP: PART I Question 01/16/2024 2:45 PM EDT - Filed by Patient Medicare requires that we periodically ask the following questions. Are you receiving benefits under the Black Lung Benefits Act (BL)? No Was the illness/injury due to a work-related accident/condition? No Are you receiving treatment for an injury or illness covered under no-fault (and/or medical-payment coverage) including premises or automobile? No Are you receiving treatment for an injury, or illness, for which another libertarian may be liable? No [facility] 2019 MSP: PART II Question 01/16/2024 2:45 PM EDT - Filed by Patient Are you entitled to Medicare based on: Age? No Disability? Yes End-stage renal disease (ESRD)? No Patient-Entered Msp: [id number]-Yrqe Primary Branch Calculation (range: 0 - 5) 4 [facility] 2019 MSP: DISABILITY Question 01/16/2024 2:45 PM EDT - Filed by Patient Do you have group health plan (GHP) coverage based on your own current employment, or the current employment of either your spouse or another family member? No [facility] PROMIS CAT V2.0-PHYSICAL FUNCTION-28 DAYS Question 01/16/2024 2:45 PM EDT - Filed by Patient Does your health now limit you in doing two hours of physical labor? Quite a lot Does your health now limit you in doing yard work like raking leaves, weeding, or pushing a lawn care professional? Cannot do Are you able to do chores such as vacuuming or yard work? With much difficulty Are you able to carry a laundry basket up a flight of stairs? Unable to do PROMIS Physical Function T-Score (range: 10 - 90) 33 (moderate dysfunction) Abnormal PROMIS Physical Function Percentile (range: 0 - 100) 4 [facility] PROMIS CAT V1.0 - FATIGUE-28 DAYS Question 01/16/2024 2:46 PM EDT - Filed by Patient How often did you have to push yourself to get things done because of your fatigue? Often I have trouble starting things because I am tired Quite a bit I feel fatigued Quite a bit How much were you bothered by your fatigue on average? Quite a bit PROMIS Fatigue T-Score (range: 10 - 90) 64 (moderate) Abnormal PROMIS Fatigue Percentile (range: 0 - 100) 8 [facility] PROMIS CAT V1.1-PAIN INTERFERENCE-28 DAYS Question 01/16/2024 2:47 PM EDT - Filed by Patient How much did pain interfere with your day to day activities? Quite a bit How much did pain interfere with your ability to participate in social activities? Very much How much did pain interfere with your enjoyment of social activities? Very much How much did pain interfere with your family life? Quite a bit PROMIS Pain Interference T-Score (range: 10 - 90) (range: 10 - 90) 70 (moderate) Abnormal PROMIS Pain Interference Percentile (range: 0 - 100) 2 MYC RAPID 3 Question 01/16/2024 2:48 PM EDT - Filed by Patient Dress yourself, including typing shoelaces and doing buttons? UNABLE to do Get in and out of bed? With SOME difficulty Lift a full cup or glass to your mouth? With SOME difficulty Walk outdoors on flat ground? With SOME difficulty Wash and dry your entire body? Without ANY difficulty Bend down to roll picker clothing from the floor? With MUCH difficulty Turn regular faucets on and off? With MUCH difficulty Get in and out of a car, bus, train, or airplane? With MUCH difficulty Walk tow miles or three kilometers, if you wish? UNABLE to do Participate in recreational activities and sports as you would like, if you wish? UNABLE to do Get a good night's sleep? With SOME difficulty Deal with feelings of anxiety or being nervous? With MUCH difficulty Deal with feelings of depression or feeling blue? With SOME difficulty RAPID 3 Pain Level 8 RAPID 3 HOW DOING OVERALL 7.5 RAPID 3 Functional Status Score (range: 0 - 10) 6 PAIN LEVEL (range: 0 - 10) 8 Global Estimate (PTGE) (range: 0 - 10) 7.5 RAPID 3 CUMULATIVE SCORE (range: 0 - 30) 21.5 RAPID 3 Weighed Score (range: 0 - 10) 7.17 (High severity ) Abnormal Weighed Score Percentage Change Compared to Last (range: -500 - 500) 15.27 MYC PROMIS 10 ADULT SHORT FORM V1.0 GLOBAL HEALTH Question 01/16/2024 2:52 PM EDT - Filed by Patient In the past 7 days In general, would you say your health is: Poor Abnormal In general, would you say your quality of life is: Fair Abnormal In general, how would you rate your physical health? Poor Abnormal In general, how would you rate your mental health, including your mood and your ability to think? Fair Abnormal In general, how would you rate your satisfaction with your social activities and relationships? Good In general, please rate how well you carry out your usual social activities and roles. (This includes activities at home, at work and in your community, and responsibilities as a parent, child, spouse, employee, friend, etc.) Fair Abnormal To what extent are you able to carry out your everyday physical activities such as walking, climbing stairs, carrying groceries, or moving a chair? Moderately Abnormal In the past 7 days In the past 7 days, how often have you been bothered by emotional problems such as feeling anxious, depressed or irritable? Often Abnormal In the past 7 days, how would you rate your fatigue on average? Severe Abnormal In the past 7 days, how would you rate your pain on average? 8 Abnormal PROMIS Adult Short Form-Global Health Score (Physical) (range: 16 - 68) 29.6 (Poor) Abnormal PROMIS Adult Short Form-Global Health Score (Mental) (range: 21 - 68) 36.3 (Fair) Abnormal Myc Promis Gh Physical Score Compared To Last (range: -2 - 3) 3 (WITHIN +/- 5) Myc Promis Gh Mental Score Compared To Last (range: -2 - 3) 3 (WITHIN +/- 5) MYC PROVIDER UNDERSTANDING CURRENT HEALTH RHEUMATOLOGY Question 01/16/2024 2:52 PM EDT - Filed by Patient These questions will help my provider understand my health Agree documented in this encounter [facility] 01-11-2024 Telephone encounter Note Notify patient medication sent as requested Thank you. Patient's request for medication is as follows: Requested Prescriptions Pending Prescriptions Disp Refills cyclobenzaprine (FLEXERIL) 10 mg tablet 450 tablet 3 Sig: Take 1-2tabs 3times a day gabapentin (NEURONTIN) 300 mg capsule 720 capsule 3 Sig: take 1 to 2 capsules by mouth every morning then take 2 capsules by mouth AT NOON then take 2 capsules by mouth nightly Prescription(s) as above. Please process accordingly. Eugenio Ellis MD [facility] 01-11-2024 Telephone encounter Note Notify patient medication sent as requested Thank you. Patient's request for medication is as follows: Requested Prescriptions Pending Prescriptions Disp Refills predniSONE (DELTASONE) 5 mg tablet 21 tablet 1 Sig: Day 1=6tabs with food, Day 2=5tabs, Day 3=4tabs, Day 4=3tabs, Day 5=2tabs, Day 6=1tab, No NSAIDs on med Prescription(s) as above. Please process accordingly. Eugenio Ellis MD [facility] [facility] 01-11-2024 Miscellaneous Notes Notify patient medication sent as requested Thank you. Patient's request for medication is as follows: Requested Prescriptions Pending Prescriptions Disp Refills cyclobenzaprine (FLEXERIL) 10 mg tablet 450 tablet 3 Sig: Take 1-2tabs 3times a day gabapentin (NEURONTIN) 300 mg capsule 720 capsule 3 Sig: take 1 to 2 capsules by mouth every morning then take 2 capsules by mouth AT NOON then take 2 capsules by mouth nightly Prescription(s) as above. Please process accordingly. Eugenio Ellis MD Patient's request for medication is as follows: Requested Prescriptions Pending Prescriptions Disp Refills cyclobenzaprine (FLEXERIL) 10 mg tablet 450 tablet 3 Sig: Take 1-2tabs 3times a day gabapentin (NEURONTIN) 300 mg capsule 720 capsule 3 Sig: take 1 to 2 capsules by mouth every morning then take 2 capsules by mouth AT NOON then take 2 capsules by mouth nightly Please approve the above prescription(s) to electronically send to pharmacy. Jodi Gonzalez MA Most recent Rheumatology visit: 04/06/2023 (with Eugenio Ellis) Last Bone Density on file: None on file Rheumatology Care Team: None on file Recent Office Visits - This Specialty 04/06/2023 Ankylosing spondylitis of multiple sites in spine ([facility]) Rheumatology Eugenio Ellis MD 08/28/2022 Ankylosing spondylitis of multiple sites in spine ([facility]) Rheumatology Eugenio Ellis MD 11/11/2021 Ankylosing spondylitis of multiple sites in spine ([facility]) Rheumatology Eugenio Ellis MD Upcoming Rheumatology Appointments - Next 365 Days Visit Type Date Time Department [facility] 01/17/2024 12:40 PM [facility] [place] CBC: None on file in the last 6 months Vitamin D: None on file in the last 6 months LFT: None on file in the last 6 months Hepatic Function: Creatinine: None on file in the last 6 months ESR/CRP: None on file in the last 6 months Uric Acid: None on file in the last 6 months Open Standing (Multiple Instance) Lab Orders None Open Future (Single Instance) Lab Orders Expected Expires Ordered COMP METABOLIC PANEL [SQCMP] 10/07/23 07/09/24 07/09/23 Auth. provider: Eugenio Ellis MD Assoc. diagnoses: Elevated LFTs CBC [SQCBC] 10/07/23 07/09/24 07/09/23 Auth. provider: Eugenio Ellis MD Assoc. diagnoses: Anemia of chronic disease SED RATE WESTERGREN [SQWSR] 10/07/23 07/09/24 07/09/23 Auth. provider: Eugenio Ellis MD Assoc. diagnoses: Elevated sed rate, Elevated C-reactive protein (CRP) C-REACTIVE PROTEIN (CRP) [SQCRP] 10/07/23 07/09/24 07/09/23 Auth. provider: Eugenio Ellis MD Assoc. diagnoses: Elevated sed rate, Elevated C-reactive protein (CRP) VITAMIN D 25 HYDROXY [SQVITD] 10/07/23 07/09/24 07/09/23 Auth. provider: Eugenio Ellis MD Assoc. diagnoses: Vitamin D deficiency VITAMIN B12 BLOOD [SQB12] 10/07/23 07/09/24 07/09/23 Auth. provider: Eugenio Ellis MD Assoc. diagnoses: Vitamin B12 deficiency BLOOD TB SCREEN [SQINFTBP] 10/07/23 07/09/24 07/09/23 Auth. provider: Eugenio Ellis MD Assoc. diagnoses: Screening-pulmonary TB documented in this encounter [facility] 01-11-2024 Miscellaneous Notes Notify patient medication sent as requested Thank you. Patient's request for medication is as follows: Requested Prescriptions Pending Prescriptions Disp Refills predniSONE (DELTASONE) 5 mg tablet 21 tablet 1 Sig: Day 1=6tabs with food, Day 2=5tabs, Day 3=4tabs, Day 4=3tabs, Day 5=2tabs, Day 6=1tab, No NSAIDs on med Prescription(s) as above. Please process accordingly. Eugenio Ellis MD Pt electronically requests the following refill(s) Requested Prescriptions Pending Prescriptions Disp Refills predniSONE (DELTASONE) 5 mg tablet 21 tablet 1 Sig: Day 1=6tabs with food, Day 2=5tabs, Day 3=4tabs, Day 4=3tabs, Day 5=2tabs, Day 6=1tab, No NSAIDs on med Jodi Gonzalez MA Most recent Rheumatology visit: 04/06/2023 (with Eugenio Ellis) Last Bone Density on file: None on file Rheumatology Care Team: None on file Recent Office Visits - This Specialty 04/06/2023 Ankylosing spondylitis of multiple sites in spine ([facility]) Rheumatology Eugenio Ellis MD 08/28/2022 Ankylosing spondylitis of multiple sites in spine ([facility]) Rheumatology Eugenio Ellis MD 11/11/2021 Ankylosing spondylitis of multiple sites in spine ([facility]) Rheumatology Eugenio Ellis MD Upcoming Rheumatology Appointments - Next 365 Days Visit Type Date Time Department [facility] 01/17/2024 12:40 PM [facility] [place] CBC: None on file in the last 6 months Vitamin D: None on file in the last 6 months LFT: None on file in the last 6 months Hepatic Function: Creatinine: None on file in the last 6 months ESR/CRP: None on file in the last 6 months Uric Acid: None on file in the last 6 months Open Standing (Multiple Instance) Lab Orders None Open Future (Single Instance) Lab Orders Expected Expires Ordered COMP METABOLIC PANEL [SQCMP] 10/07/23 07/09/24 07/09/23 Auth. provider: Eugenio Ellis MD Assoc. diagnoses: Elevated LFTs CBC [SQCBC] 10/07/23 07/09/24 07/09/23 Auth. provider: Eugenio Ellis MD Assoc. diagnoses: Anemia of chronic disease SED RATE WESTERGREN [SQWSR] 10/07/23 07/09/24 07/09/23 Auth. provider: Eugenio Ellis MD Assoc. diagnoses: Elevated sed rate, Elevated C-reactive protein (CRP) C-REACTIVE PROTEIN (CRP) [SQCRP] 10/07/23 07/09/24 07/09/23 Auth. provider: Eugenio Ellis MD Assoc. diagnoses: Elevated sed rate, Elevated C-reactive protein (CRP) VITAMIN D 25 HYDROXY [SQVITD] 10/07/23 07/09/24 07/09/23 Auth. provider: Eugenio Ellis MD Assoc. diagnoses: Vitamin D deficiency VITAMIN B12 BLOOD [SQB12] 10/07/23 07/09/24 07/09/23 Auth. provider: Eugenio Ellis MD Assoc. diagnoses: Vitamin B12 deficiency BLOOD TB SCREEN [SQINFTBP] 10/07/23 07/09/24 07/09/23 Auth. provider: Eugenio Ellis MD Assoc. diagnoses: Screening-pulmonary TB documented in this encounter [facility] 01-11-2024 Telephone encounter Note Patient's request for medication is as follows: Requested Prescriptions Pending Prescriptions Disp Refills cyclobenzaprine (FLEXERIL) 10 mg tablet 450 tablet 3 Sig: Take 1-2tabs 3times a day gabapentin (NEURONTIN) 300 mg capsule 720 capsule 3 Sig: take 1 to 2 capsules by mouth every morning then take 2 capsules by mouth AT NOON then take 2 capsules by mouth nightly Please approve the above prescription(s) to electronically send to pharmacy. Jodi Gonzalez MA Most recent Rheumatology visit: 04/06/2023 (with Eugenio Ellis) Last Bone Density on file: None on file Rheumatology Care Team: None on file Recent Office Visits - This Specialty 04/06/2023 Ankylosing spondylitis of multiple sites in spine (HCC) Rheumatology Eugenio Ellis MD 08/28/2022 Ankylosing spondylitis of multiple sites in spine ([facility]) Rheumatology Eugenio Ellis MD 11/11/2021 Ankylosing spondylitis of multiple sites in spine ([facility]) Rheumatology Eugenio Ellis MD Upcoming Rheumatology Appointments - Next 365 Days Visit Type Date Time Department [facility] 01/17/2024 12:40 PM [facility] [place] CBC: None on file in the last 6 months Vitamin D: None on file in the last 6 months LFT: None on file in the last 6 months Hepatic Function: Creatinine: None on file in the last 6 months ESR/CRP: None on file in the last 6 months Uric Acid: None on file in the last 6 months Open Standing (Multiple Instance) Lab Orders None Open Future (Single Instance) Lab Orders Expected Expires Ordered COMP METABOLIC PANEL [SQCMP] 10/07/23 07/09/24 07/09/23 Auth. provider: Eugenio Ellis MD Assoc. diagnoses: Elevated LFTs CBC [SQCBC] 10/07/23 07/09/24 07/09/23 Auth. provider: Eugenio Ellis MD Assoc. diagnoses: Anemia of chronic disease SED RATE WESTERGREN [SQWSR] 10/07/23 07/09/24 07/09/23 Auth. provider: Eugenio Ellis MD Assoc. diagnoses: Elevated sed rate, Elevated C-reactive protein (CRP) C-REACTIVE PROTEIN (CRP) [SQCRP] 10/07/23 07/09/24 07/09/23 Auth. provider: Eugenio Ellis MD Assoc. diagnoses: Elevated sed rate, Elevated C-reactive protein (CRP) VITAMIN D 25 HYDROXY [SQVITD] 10/07/23 07/09/24 07/09/23 Auth. provider: Eugenio Ellis MD Assoc. diagnoses: Vitamin D deficiency VITAMIN B12 BLOOD [SQB12] 10/07/23 07/09/24 07/09/23 Auth. provider: Eugenio Ellis MD Assoc. diagnoses: Vitamin B12 deficiency BLOOD TB SCREEN [SQINFTBP] 10/07/23 07/09/24 07/09/23 Auth. provider: Eugenio Ellis MD Assoc. diagnoses: Screening-pulmonary TB [facility] 01-11-2024 Telephone encounter Note Pt electronically requests the following refill(s) Requested Prescriptions Pending Prescriptions Disp Refills predniSONE (DELTASONE) 5 mg tablet 21 tablet 1 Sig: Day 1=6tabs with food, Day 2=5tabs, Day 3=4tabs, Day 4=3tabs, Day 5=2tabs, Day 6=1tab, No NSAIDs on med Jodi Gonzalez MA Most recent Rheumatology visit: 04/06/2023 (with Eugenio Ellis) Last Bone Density on file: None on file Rheumatology Care Team: None on file Recent Office Visits - This Specialty 04/06/2023 Ankylosing spondylitis of multiple sites in spine ([facility]) Rheumatology Eugenio Ellis MD 08/28/2022 Ankylosing spondylitis of multiple sites in spine ([facility]) Rheumatology Eugenio Ellis MD 11/11/2021 Ankylosing spondylitis of multiple sites in spine ([facility]) Rheumatology Eugenio Ellis MD Upcoming Rheumatology Appointments - Next 365 Days Visit Type Date Time Department [facility] 01/17/2024 12:40 PM [facility] [place] CBC: None on file in the last 6 months Vitamin D: None on file in the last 6 months LFT: None on file in the last 6 months Hepatic Function: Creatinine: None on file in the last 6 months ESR/CRP: None on file in the last 6 months Uric Acid: None on file in the last 6 months Open Standing (Multiple Instance) Lab Orders None Open Future (Single Instance) Lab Orders Expected Expires Ordered COMP METABOLIC PANEL [SQCMP] 10/07/23 07/09/24 07/09/23 Auth. provider: Eugenio Ellis MD Assoc. diagnoses: Elevated LFTs CBC [SQCBC] 10/07/23 07/09/24 07/09/23 Auth. provider: Eugenio Ellis MD Assoc. diagnoses: Anemia of chronic disease SED RATE WESTERGREN [SQWSR] 10/07/23 07/09/24 07/09/23 Auth. provider: Eugenio Ellis MD Assoc. diagnoses: Elevated sed rate, Elevated C-reactive protein (CRP) C-REACTIVE PROTEIN (CRP) [SQCRP] 10/07/23 07/09/24 07/09/23 Auth. provider: Eugenio Ellis MD Assoc. diagnoses: Elevated sed rate, Elevated C-reactive protein (CRP) VITAMIN D 25 HYDROXY [SQVITD] 10/07/23 07/09/24 07/09/23 Auth. provider: Eugenio Ellis MD Assoc. diagnoses: Vitamin D deficiency VITAMIN B12 BLOOD [SQB12] 10/07/23 07/09/24 07/09/23 Auth. provider: Eugenio Ellis MD Assoc. diagnoses: Vitamin B12 deficiency BLOOD TB SCREEN [SQINFTBP] 10/07/23 07/09/24 07/09/23 Auth. provider: Eugenio Ellis MD Assoc. diagnoses: Screening-pulmonary TB [facility] 01-11-2024 Telephone encounter Note Patient sent [employer] message. [facility] 01-11-2024 Miscellaneous Notes Patient sent [employer] message. Notify patient medication sent as requested but only once a week per insurance Thank you. Patient's request for medication is as follows: Requested Prescriptions Signed Prescriptions Disp Refills Etanercept (ENBREL) 50 mg/mL (1 mL) injection 12 Each 3 Sig: INJECT 1 SYRINGE UNDER THE SKIN 1 TIME A WEEK. Hold if ill or on antibiotics. No LIVE vaccines. Authorizing Provider: EUGENIO ELLIS Prescription(s) as above. Please process accordingly. Eugenio Ellis MD Most recent Rheumatology visit: 04/06/2023 (with Eugenio Ellis) Last Bone Density on file: None on file Rheumatology Care Team: None on file Recent Office Visits - This Specialty 04/06/2023 Ankylosing spondylitis of multiple sites in spine ([facility]) Rheumatology Eugenio Ellis MD 08/28/2022 Ankylosing spondylitis of multiple sites in spine ([facility]) Rheumatology Eugenio Ellis MD 11/11/2021 Ankylosing spondylitis of multiple sites in spine ([facility]) Rheumatology Eugenio Ellis MD Upcoming Rheumatology Appointments - Next 365 Days Visit Type Date Time Department [facility] 01/17/2024 12:40 PM [facility] [place] CBC: None on file in the last 6 months Vitamin D: None on file in the last 6 months LFT: None on file in the last 6 months Hepatic Function: Creatinine: None on file in the last 6 months ESR/CRP: None on file in the last 6 months Uric Acid: None on file in the last 6 months Open Standing (Multiple Instance) Lab Orders None Open Future (Single Instance) Lab Orders Expected Expires Ordered COMP METABOLIC PANEL [SQCMP] 10/07/23 07/09/24 07/09/23 Auth. provider: Eugenio Ellis MD Assoc. diagnoses: Elevated LFTs CBC [SQCBC] 10/07/23 07/09/24 07/09/23 Auth. provider: Eugenio Ellis MD Assoc. diagnoses: Anemia of chronic disease SED RATE WESTERGREN [SQWSR] 10/07/23 07/09/24 07/09/23 Auth. provider: Eugenio Ellis MD Assoc. diagnoses: Elevated sed rate, Elevated C-reactive protein (CRP) C-REACTIVE PROTEIN (CRP) [SQCRP] 10/07/23 07/09/24 07/09/23 Auth. provider: Eugenio Ellis MD Assoc. diagnoses: Elevated sed rate, Elevated C-reactive protein (CRP) VITAMIN D 25 HYDROXY [SQVITD] 10/07/23 07/09/24 07/09/23 Auth. provider: Eugenio Ellis MD Assoc. diagnoses: Vitamin D deficiency VITAMIN B12 BLOOD [SQB12] 10/07/23 07/09/24 07/09/23 Auth. provider: Eugenio Ellis MD Assoc. diagnoses: Vitamin B12 deficiency BLOOD TB SCREEN [SQINFTBP] 10/07/23 07/09/24 07/09/23 Auth. provider: Eugenio Ellis MD Assoc. diagnoses: Screening-pulmonary TB documented in this encounter [facility] 01-11-2024 Telephone encounter Note Notify patient medication sent as requested but only once a week enbrel per insurance Resent gabapentin since no [facility]. Thank you. Patient's request for medication is as follows: Requested Prescriptions Signed Prescriptions Disp Refills gabapentin (NEURONTIN) 300 mg capsule 720 capsule 3 Sig: take 1 to 2 capsules by mouth every morning then take 2 capsules by mouth AT NOON then take 2 capsules by mouth nightly Prescription(s) as above. Please process accordingly. Eugenio Ellis MD [facility] 01-11-2024 Miscellaneous Notes Notify patient medication sent as requested but only once a week enbrel per insurance Resent gabapentin since no [facility]. Thank you. Patient's request for medication is as follows: Requested Prescriptions Signed Prescriptions Disp Refills gabapentin (NEURONTIN) 300 mg capsule 720 capsule 3 Sig: take 1 to 2 capsules by mouth every morning then take 2 capsules by mouth AT NOON then take 2 capsules by mouth nightly Prescription(s) as above. Please process accordingly. Eugenio Ellis MD Please call patient. Thank you for the update. Sorry to hear about your discomfort. Notify office if agreeable with trying another biologic since the insurance may only approve once a week enbrel and currently not filling medication. Notify office if a prednisone pack would be helpful. Hope you feel better soon! Warm regards, Dr.Caleb :) Images from the original note were not included. also -- see new mychart message from patient jackie [address] Rheum Nurse Dionte (supporting Eugenio Ellis MD)5 hours ago (7:44 AM) PS Rg Hilton/Dot: I got your message yesterday. I know they ve denied coverage of two injections per week, but I haven t had ANY in more than two weeks, they say I used it incorrectly. My prescription, and [facility] on [facility] box says 2/week, so how was I wrong? I faxed them a lot of papers, including the one assigning my case. I received the one you sent me last week, but it was only two papers, no signature page. I requested an emergency fill. My hips are so bad I had to start using a cane. I will fax you everything I sent. I see Dr Ellis next week. I hope this can be resolved before then. Thank you for your help. after review of denial appeal letter -- the reconsideration request was reviewed by a physician review , board certified in Rheumatology who confirmed our original denial decision . Rationale: Continuation of therapy is not medically appropriate as supported by current medical literature for the use of Enbrel 50mg for this member. The ACR and EULAR guidelines for managing ankylosing spondylitis do not discuss or endorse dose escalation of biologic DMARDS as a management tool for inadequate disease control; the current medical literature provides concrete evidence that escalating the dose of Enbrel is not an effective strategy for managing Inf. Rheum. diseases. I generated a reconsideration letter - please review Please advise if you are agreeable to send in rx for once weekly dose for pt to start now since she has been out of this medication for > 3 wks. May proceed with appeal when able Thank you [employer] faxes that requested information has been received and reviewed. Denial has been upheld as information submitted did not meet plan's criteria for medical necessity. Left VM that reconsideration letter is needed to move forward with appeal. Once reconsideration letter received Appeal must include: Why initial decision was wrong and the reason that the member's request is medically necessary for their condition. Denial at my desk awaiting needed documentation. Received fax from [facility] that Service Benefit Plan is conducting a review of patient's case. [facility] requesting history, lab values, clinical exam, progress notes, and pertinent tests from the past 12 months relevant to patient's need for Enbrel. Information faxed to [phone] with confirmation. Received denial. Reconsideration letter is needed to move forward with this appeal. Patient must sign ' Designation of Capacitor Tester' form. Form placed on mail to patient's home address. Happy to support the appeal for twice a week enbrel since patient has responding positively for years. Thank you. Called [facility] Special[facility] pharmacy regarding Enbrel -- rx was submitted for day -- They stated that pharmacy will only cover 10/01 per [employer] benefits rep . -- states that new PA needed - forwarded to [phone] completed PA over the phone with AMEYA Fernandes rep - PA denied PA denied due to exceeding once a week dosage pt notified via scriblet -- member will need to initiate request for appeal by signing the consent on the appeals form per AMEYA Fernandes rep [facility] PPO [id number] Secondary Visit Coverage Subscriber ID Name SSN Address [id number] RHONA GARCIA [id number] [place] [address] [address] [place] [address] awaiting appeal letter via fax [phone] documented in this encounter [facility] 01-11-2024 Telephone encounter Note Notify patient medication sent as requested but only once a week per insurance Thank you. Patient's request for medication is as follows: Requested Prescriptions Signed Prescriptions Disp Refills Etanercept (ENBREL) 50 mg/mL (1 mL) injection 12 Each 3 Sig: INJECT 1 SYRINGE UNDER THE SKIN 1 TIME A WEEK. Hold if ill or on antibiotics. No LIVE vaccines. Authorizing Provider: EUGEINO ELLIS Prescription(s) as above. Please process accordingly. Eugenio Ellis MD [facility] 01-10-2024 Telephone encounter Note Please call patient. Thank you for the update. Sorry to hear about your discomfort. Notify office if agreeable with trying another biologic since the insurance may only approve once a week enbrel and currently not filling medication. Notify office if a prednisone pack would be helpful. Hope you feel better soon! Warm regards, :) [facility] 01-10-2024 Telephone encounter Note Images from the original note were not included. also -- see new mychart message from patient jackie [address] Rheum Nurse Dionte (supporting Eugenio Ellis MD)5 hours ago (7:44 AM) PS Rg Hilton/Dot: I got your message yesterday. I know they ve denied coverage of two injections per week, but I haven t had ANY in more than two weeks, they say I used it incorrectly. My prescription[facility] 2/week, so how was I wrong? I faxed them a lot of papers, including the one assigning my case. I received the one you sent me last week, but it was only two papers, no signature page. I requested an emergency fill. My hips are so bad I had to start using a cane. I will fax you everything I sent. I see Dr Ellis next week. I hope this can be resolved before then. Thank you for your help. [facility] 01-10-2024 Telephone encounter Note after review of denial appeal letter -- the reconsideration request was reviewed by a physician review , board certified in Rheumatology who confirmed our original denial decision . Rationale: Continuation of therapy is not medically appropriate as supported by current medical literature for the use of Enbrel 50mg for this member. The ACR and EULAR guidelines for managing ankylosing spondylitis do not discuss or endorse dose escalation of biologic DMARDS as a management tool for inadequate disease control; the current medical literature provides concrete evidence that escalating the dose of Enbrel is not an effective strategy for managing Inf. Rheum. diseases. I generated a reconsideration letter - please review Please advise if you are agreeable to send in rx for once weekly dose for pt to start now since she has been out of this medication for > 3 wks. T [facility] 01-10-2024 Telephone encounter Note Most recent Rheumatology visit: 04/06/2023 (with Eugenio Ellis) Last Bone Density on file: None on file Rheumatology Care Team: None on file Recent Office Visits - This Specialty 04/06/2023 Ankylosing spondylitis of multiple sites in spine ([facility]) Rheumatology Eugenio Ellis MD 08/28/2022 Ankylosing spondylitis of multiple sites in spine ([facility]) Rheumatology Eugenio Ellis MD 11/11/2021 Ankylosing spondylitis of multiple sites in spine ([facility]) Rheumatology Eugenio Elils MD Upcoming Rheumatology Appointments - Next 365 Days Visit Type Date Time Department [facility] 01/17/2024 12:40 PM [facility] [place] CBC: None on file in the last 6 months Vitamin D: None on file in the last 6 months LFT: None on file in the last 6 months Hepatic Function: Creatinine: None on file in the last 6 months ESR/CRP: None on file in the last 6 months Uric Acid: None on file in the last 6 months Open Standing (Multiple Instance) Lab Orders None Open Future (Single Instance) Lab Orders Expected Expires Ordered COMP METABOLIC PANEL [SQCMP] 10/07/23 07/09/24 07/09/23 Auth. provider: Eugenio Ellis MD Assoc. diagnoses: Elevated LFTs CBC [SQCBC] 10/07/23 07/09/24 07/09/23 Auth. provider: Eugenio Ellis MD Assoc. diagnoses: Anemia of chronic disease SED RATE WESTERGREN [SQWSR] 10/07/23 07/09/24 07/09/23 Auth. provider: Eugenio Ellis MD Assoc. diagnoses: Elevated sed rate, Elevated C-reactive protein (CRP) C-REACTIVE PROTEIN (CRP) [SQCRP] 10/07/23 07/09/24 07/09/23 Auth. provider: Eugenio Ellis MD Assoc. diagnoses: Elevated sed rate, Elevated C-reactive protein (CRP) VITAMIN D 25 HYDROXY [SQVITD] 10/07/23 07/09/24 07/09/23 Auth. provider: Eugenio Ellis MD Assoc. diagnoses: Vitamin D deficiency VITAMIN B12 BLOOD [SQB12] 10/07/23 07/09/24 07/09/23 Auth. provider: Eugenio Ellis MD Assoc. diagnoses: Vitamin B12 deficiency BLOOD TB SCREEN [SQINFTBP] 10/07/23 07/09/24 07/09/23 Auth. provider: Eugenio Ellis MD Assoc. diagnoses: Screening-pulmonary TB [facility] 01-09-2024 Telephone encounter Note May proceed with appeal when able Thank you [facility] 01-09-2024 Telephone encounter Note [employer] faxes that requested information has been received and reviewed. Denial has been upheld as information submitted did not meet plan's criteria for medical necessity. Left VM that reconsideration letter is needed to move forward with appeal. Once reconsideration letter received Appeal must include: Why initial decision was wrong and the reason that the member's request is medically necessary for their condition. Denial at my desk awaiting needed documentation. [facility] 01-02-2024 Miscellaneous Notes Last Office Visit: 12/25/2023 Next Office Visit: 02/12/2024 Last Urine Drug Screen: Lab Results Component Value Date BENZOSCRN Negative 07/03/2023 OARRS appropriate Pt calls to refill norco. [facility] [place] They don't have norco in stock, they offered to fill stronger strength and cut in half. This office will not authorize stronger strength, so pt request new script sent to different pharmacy ([facility]). Order pending Patient left telephone message stating that she was at [facility] at time of call and is getting her prescription filled. Per patient's message, she states to cancel the request for [place] to go to [facility]-done. documented in this encounter [facility] [employer] [facility] 01-02-2024 Telephone encounter Note Last Office Visit: 12/25/2023 Next Office Visit: 02/12/2024 Last Urine Drug Screen: Lab Results Component Value Date BENZOSCRN Negative 07/03/2023 OARRS appropriate Pt calls to refill norco. [facility] in [place]. They don't have norco in stock, they offered to fill stronger strength and cut in half. This office will not authorize stronger strength, so pt request new script sent to different pharmacy ([facility]). Order pending [facility] 01-02-2024 Telephone encounter Note Patient left telephone message stating that she was at [facility] at time of call and is getting her prescription filled. Per patient's message, she states to cancel the request for [place] to go to [facility]. [facility] 12-31-2023 Telephone encounter Note Please call patient. Thank you for the update. Sorry to hear about your discomfort. Hope you feel better soon! Warm regards, :) [facility] 12-31-2023 Miscellaneous Notes Please call patient. Thank you for the update. Sorry to hear about your discomfort. Hope you feel better soon! Warm regards, :) documented in this encounter [facility] 12-31-2023 Telephone encounter Note Patient read my chart message regarding results. Lab orders mailed to patient home per Dr. Ellis request. [facility] 12-31-2023 Miscellaneous Notes Patient read my chart message regarding results. Lab orders mailed to patient home per Dr. Ellis request. Please Call patient if MyChart note not read to review results/released to My Chart if tests completed at [facility]: One borderline inflammatory test- will monitor. Mildly high vitamin b12- decrease intake in half, will monitor with primary care provider. Normal rest of labs. Continue same vitamin D intake with food. Recheck nonfasting labs in 3months.The orders have been placed. Please send orders cmp, cbc, esr, crp, vitamin b12. Orders in epic. Please fax results to rheum office. Thank you! Happy to further review and discuss at follow up visit. Continue rest of treatment plan per instructions at last office visit. Thank you. 12/25/23 high crp 1.1 (NL0-0.744mg/dL), glucose 140, vitamin b12>1500;low hgb 10.6normal cmp, potassium 3.8, creat 0.83, calcium 9, alkaline phosphatase 69, ast 15, alt 12, vitamin D 53.8, wbc 6.9, plts 317;negative quantiferon tb; [facility] 07/03/23 normal cmp, potassium 4.1, creat 0.81, glucose 71, calcium 9, alkaline phosphatase 74, ast 18, alt 16, crp 0.2 (NL0-0.744mg/dL), vitamin D 54.4, cbc, wbc 5.6, hgb 11.8, plts 272, esr 30 (normal 0-30mm/hr) 05/07/23 last dose cimzia 06/27/23 restart enbrel Received labs from [facility]. Results placed on your desk for review. documented in this encounter [facility] 12-30-2023 Telephone encounter Note See results note Good Afternoon, Hope you are doing well. Your test results show One borderline inflammatory test- will monitor. Mildly high vitamin b12- decrease intake in half, will monitor with primary care provider. Normal rest of labs. Continue same vitamin D intake with food. Recheck nonfasting labs in 3months.The orders have been placed. Office will send orders. Please fax results to rheum office. Thank you! Happy to further review and discuss at follow up visit. Continue rest of treatment plan per instructions at last office visit. Stay Safe & healthy, and Have a wonderful day! Dr.Tsai Jalil :) [facility] 12-30-2023 Miscellaneous Notes See results note Good Afternoon, Hope you are doing well. Your test results show One borderline inflammatory test- will monitor. Mildly high vitamin b12- decrease intake in half, will monitor with primary care provider. Normal rest of labs. Continue same vitamin D intake with food. Recheck nonfasting labs in 3months.The orders have been placed. Office will send orders. Please fax results to rheum office. Thank you! Happy to further review and discuss at follow up visit. Continue rest of treatment plan per instructions at last office visit. Stay Safe & healthy, and Have a wonderful day! Dr.Tsai Jalil :) documented in this encounter [facility] 12-30-2023 Telephone encounter Note Please Call patient if MyChart note not read to review results/released to My Chart if tests completed at [facility]: One borderline inflammatory test- will monitor. Mildly high vitamin b12- decrease intake in half, will monitor with primary care provider. Normal rest of labs. Continue same vitamin D intake with food. Recheck nonfasting labs in 3months.The orders have been placed. Please send orders cmp, cbc, esr, crp, vitamin b12. Orders in epic. Please fax results to rheum office. Thank you! Happy to further review and discuss at follow up visit. Continue rest of treatment plan per instructions at last office visit. Thank you. 12/25/23 high crp 1.1 (NL0-0.744mg/dL), glucose 140, vitamin b12>1500;low hgb 10.6normal cmp, potassium 3.8, creat 0.83, calcium 9, alkaline phosphatase 69, ast 15, alt 12, vitamin D 53.8, wbc 6.9, plts 317;negative quantiferon tb; [facility] 07/03/23 normal cmp, potassium 4.1, creat 0.81, glucose 71, calcium 9, alkaline phosphatase 74, ast 18, alt 16, crp 0.2 (NL0-0.744mg/dL), vitamin D 54.4, cbc, wbc 5.6, hgb 11.8, plts 272, esr 30 (normal 0-30mm/hr) 05/07/23 last dose cimzia 06/27/23 restart enbrel [facility] 12-28-2023 Telephone encounter Note Received fax from [facility] that Service Benefit Plan is conducting a review of patient's case. [employer] requesting history, lab values, clinical exam, progress notes, and pertinent tests from the past 12 months relevant to patient's need for Enbrel. Information faxed to [phone] with confirmation. [facility] 12-28-2023 Telephone encounter Note Received labs from [facility]. Results placed on your desk for review. T [facility] 12-25-2023 History of Present illness Narrative [facility] [address] [place] [address] Patient: Rhona Garcia Sex: female : 1960 Age: 63 y.o. PCP: KATIE GARCIA, DO 12/25/2023 Rhona Garcia is here for a(n) post procedure follow up right shoulder injection on 11/30/2023 with at least 80% relief. She reports her left hand hurts again and she is having increased neck pain with radiation down her arms. Date of onset of pain: 2021 , pain has lasted greater than 3 months. Pain scale before treatment: 8/10 Pre-op pain score: 4/10 2 hour post-op pain score: 3/10 4 hour post-op pain score: 1/10 Percentage of relief after and duration: at least 80% relief Pain scale after treatment: 0/10 right shoulder Chief Complaint Patient presents with Shoulder Pain HPI: PT/HEP 2018 Back: 06/21/18 oswaldo SI joint injection with no relief on left 75% temporary relief on right. Right SI RFA 01/09/2020 with no relief. 10/15/20 Right SI RFA with 75% relief 03/04/21 RFA Left L 4/5, 5/1 with 50% relief currently. 12/27/18 Caudal not helpful. left lumbar RFA w/75% relief Right SI joint injection on 04/22/2021 with 80% relief then went down to 50% relief. 05/23/21 Right RFA L 4/5, 5/1 with 50% relief. 02/17/22 Caudal with no relief reported. 08/26/2021 Right SI injection w/ 50% Right SI joint injection 03/17/2022 50% relief. 10/27/2022 Right Sacroiliac Injection with 75% relief continuing Right SI joint injection on 06/16/2022 with at least 50% relief. 07/21/22 Rt L 4/5 5/1 RFA w/50% relief pre-proc pain pre-proc pain 7/10 post proc 08/11 until Jul 2023 08/04/22 Lt L 4/5 5/1 RFA w/50% relief pre-proc pain 8/10 post proc pain 4/10 until Jul 2023 01/26/23 Oswaldo SI Inj w/80% relief continued 07/19/2022 Bilateral Sacroiliac Joint injection with 85% relief x 2 hours, and 50% relief continuing today Bilateral SI joint injection 05/18/23 with 85% relief for 2 hours and 50% continued relief. 08/24/2023 Left L4/5, 5/1 Radio Frequency Ablation with 80% relief continuing. Pre procedure pain 8/10. Post procedure pain 2/10 10/12/2023 Right L4/5, 5/1 Radio Frequency Ablation with 65% relief continuing. Pre procedure pain 8/10. Post procedure pain / Thumb: 09/22/22 Left CMC joint injection with 90% relief Wrist 04/06/2023 left wrist injection with 50% relief that continues post procedure follow up left wrist injection on 07/13/2023 with 80% relief. Pre-procedural pain was reported as 6/10 post proc pain is 2/10 Neck: 06/08/19 Left C5/6,6/7, 7/1 no relief. JOANNE C / on 07/16/20 w/75% relief. Shoulder right shoulder injection on 11/30/2023 with at least 80% relief. Back Pain This is a chronic problem. The current episode started more than 1 year ago (20+ years). The problem occurs constantly. The problem has been gradually worsening since onset. The pain is present in the sacro-iliac, lumbar spine, gluteal and thoracic spine. The quality of the pain is described as aching, stabbing and shooting. The pain does not radiate. The pain is at a severity of 5/10 (5/10 thoracic/ 2/10 lumbar). The pain is moderate. The pain is The same all the time. Exacerbated by: prolonged standing, walking and sitting ; lying down, stairs, bending, twisting, pushing/pulliing, cough/sneeze, transitioing, cold/heat Stiffness is present All day (varies with activity). Associated symptoms include headaches (2 weekly on average) and weakness (Right shoulder). Pertinent negatives include no bladder incontinence, bowel incontinence, chest pain, fever, leg pain or numbness. Risk factors include sedentary lifestyle. Treatments tried: PT/HEP 2019 w/no relief, NSAIDsx3 (naproxen, motrin, ibuprofen), heat, Flexeril, Neurontin, Elavil & [place] w/ some relief, OTC Arnica cream w/ mod relief. The treatment provided moderate relief. Neck Pain This is a chronic problem. The problem occurs constantly. The problem has been gradually worsening. The pain is associated with nothing. The pain is present in the left side, midline and right side (radiates into right shoulder). The quality of the pain is described as aching (stiffness). The pain is at a severity of 8/10. The pain is severe. The symptoms are aggravated by coughing, position, stress, sneezing, swallowing, twisting and bending. The pain is Same all the time. Stiffness is present All day, in the morning and at night. Associated symptoms include headaches (2 weekly on average) and weakness (Right shoulder). Pertinent negatives include no chest pain, fever, leg pain or numbness. She has tried acetaminophen, muscle relaxants and home exercises for the symptoms. Wrist Pain The pain is present in the left wrist, right wrist, left hand and right hand. This is a chronic problem. The current episode started more than 1 year ago. There has been no history of extremity trauma. The problem occurs constantly. The problem has been unchanged. The quality of the pain is described as aching. Pain scale: 6/10 right hand/wrist; 5/10left hand/wrist. Pertinent negatives include no fever or numbness. Associated symptoms comments: Wrist pain increases while using steering wheel . The symptoms are aggravated by activity. She has tried NSAIDS, heat and acetaminophen for the symptoms. The treatment provided mild relief. The effect of pain on patient's ADLS: Moderate Impairment. 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 Fall after dizzy spell GERD (gastroesophageal reflux disease) Gout Heart palpitations Hypertension Joint pain Kidney failure Low back pain Lumbar disc disease Neck pain Neuropathy Osteoarthritis Raynaud's disease Scleroderma ([facility]) Syncope Vertigo Past Surgical History: Procedure Laterality Date CARPAL TUNNEL RELEASE Right EXCISION MASS Left 12/26/2018 Performed by Higinio Okeefe MD at [facility] Right Thumb joint replacement INJECTION BLOCK EPIDURAL CAUDAL STEROID N/A 02/17/2022 Performed by Sky Hemphill MD at [facility] INJECTION BLOCK EPIDURAL CERVICAL/THORACIC: C71 JOANNE N/A 07/16/2020 Performed by Sky Hemphill MD at [facility] INJECTION BLOCK NERVE MEDIAL BRANCH: left [id number] [id number] Left 06/18/2020 Performed by Sky Hemphill MD at [facility] INJECTION BLOCK SACROILIAC JOINT Bilateral 05/18/2023 Performed by Sky Hemphill MD at [facility] INJECTION BLOCK SACROILIAC JOINT Bilateral 01/26/2023 Performed by Sky Hemphill MD at [facility] INJECTION BLOCK SACROILIAC JOINT Right 10/27/2022 Performed by Sky Hemphill MD at [facility] INJECTION BLOCK SACROILIAC JOINT Right 03/17/2022 Performed by Sky Hemphill MD at [facility] INJECTION BLOCK SACROILIAC JOINT Right 08/26/2021 Performed by Sky Hemphill MD at [facility] INJECTION BLOCK SACROILIAC JOINT Right 04/22/2021 Performed by Sky Hemphill MD at [facility] INJECTION BLOCK SACROILIAC JOINT Right 10/15/2020 Performed by Sky Hemphill MD at [facility] INJECTION BLOCK SACROILIAC JOINT: Right 06/16/2022 Performed by Sky Hemphill MD at [facility] INJECTION BURSA INTERMEDIATE Left Wrist Left 07/13/2023 Performed by Sky Hemphill MD at [facility] INJECTION BURSA INTERMEDIATE Left wrist Left 04/06/2023 Performed by Sky Hemphill MD at [facility] INJECTION BURSA LARGE JOINT: left CMC Left 09/22/2022 Performed by Sky Hemphill MD at [facility] INJECTION BURSA LARGE JOINT: right shoulder Right 11/30/2023 Performed by Sky Hemphill MD at [facility] INJECTION BURSA LARGE JOINT: right shoulder Right 02/16/2023 Performed by Sky Hemphill MD at [facility] INJECTION BURSA SMALL JOINT: wrist injection Left 10/07/2018 Performed by Sky Hemphill MD at [facility] INJECTION CAUDAL EPIDURAL WITH CATHETER, STEROID N/A 2018 Performed by Sky Hemphill MD at [facility] INJECTION LARGE JOINT BURSA: left ankle Left 10/22/2017 Performed by Sky Hemphill MD at [facility] INJECTION MEDIAL BRANCH NERVE BLOCK: left L34 45 51 Left 11/18/2018 Performed by Sky Hemphill MD at [facility] INJECTION SACROILIAC NERVE Bilateral 04/21/2019 Performed by Sky Hemphill MD at [facility] INJECTION SACROILIAC NERVE Left 11/01/2018 Performed by Sky Hemphill MD at [facility] JOINT REPLACEMENT Bilateral RADIO FREQUENCY ABLATION: left L34 45 [id number] Left 12/27/2018 Performed by Sky Hemphill MD at [facility] RADIO FREQUENCY ABLATION: left L34 [id number] Left 10/31/2019 Performed by Sky Hemphill MD at [facility] RADIO FREQUENCY ABLATION: right L34 45 51 Right 10/17/2019 Performed by Sky Hemphill MD at [facility] RADIO FREQUENCY ABLATION: right SI Right 05/16/2019 Performed by Sky Hemphill MD at [facility] RADIO FREQUENCY ABLATION: right SI rfa Right 01/09/2020 Performed by Sky Hemphill MD at [facility] RADIOFREQUENCY ABLATION SPINAL: left L 4/5 5/1 Left 08/04/2022 Performed by Sky Hemphill MD at [facility] RADIOFREQUENCY ABLATION SPINAL: left L 4/5 5/1 Left 03/04/2021 Performed by Sky Hemphill MD at [facility] RADIOFREQUENCY ABLATION SPINAL: left L 4/5, 5/1 Left 08/24/2023 Performed by Sky Hemphill MD at [facility] RADIOFREQUENCY ABLATION SPINAL: right L 4/5 5/1 Right 07/21/2022 Performed by Sky Hemphill MD at [facility] RADIOFREQUENCY ABLATION SPINAL: right L 4/5 5/1 Right 05/23/2021 Performed by Sky Hemphill MD at [facility] RADIOFREQUENCY ABLATION SPINAL: right L 4/5, 5/1 Right 10/12/2023 Performed by Sky Hemphill MD at [facility] RADIOFREQUENCY ABLATION SPINAL: right L34 45 51 Right 05/18/2017 Performed by Sky Hemphill MD at [facility] RADIOFREQUENCY ABLATION SPINAL: right SI Right 11/02/2017 Performed by Sky Hemphill MD at [facility] RADIOFREQUENCY ABLATION SPINAL: Right SI Right 03/05/2017 Performed by Sky Hemphill MD at [facility] RELEASE CARPAL TUNNEL Left 12/26/2018 Performed by Higinio Okeefe MD at [facility] REPAIR TENDON FINGER, 5th finger muscle repair Left 11/22/2020 Performed by Rahat Hirsch MD at [facility] TUBAL LIGATION Allergies Allergen Reactions Cinnamon Analogues Swelling Throat swells Coconut Swelling Throat swells Sulfa (Sulfonamide Antibiotics) Anaphylaxis ivp dye ok per pt noted for pain clinic House Dust Other reaction(s): Other: See Comments itching eyes, scratchy throat Oxycodone-Acetaminophen Other reaction(s): nightmares Darvocet A500 [Propoxyphene N-Acetaminophen] Other (See Comments) Nightmares Lactase GI Disturbance Shellfish Containing Products Abdominal Pain Ok for ivp dye per pt Noted for pain clinic Tizanidine (Bulk) Abdominal Pain Tree Nuts Abdominal Pain Family History Problem Relation Age of Onset Cancer Mother Stroke Father Social History Socioeconomic History Marital status: Single Spouse name: Not on file Number of children: Not on file Years of education: Not on file Highest education level: Not on file Occupational History Not on file Tobacco Use Smoking status: Never Smokeless tobacco: Never Vaping Use Vaping status: Never Used Substance and Sexual Activity Alcohol use: No Alcohol/week: 0.0 standard drinks of alcohol Comment: stopped 6-7 years ago Drug use: No Sexual activity: Defer Partners: Male Other Topics Concern Not on file Social History Narrative Not on file Social Determinants of Health Financial Resource Strain: Low Risk (03/19/2023) Received from [facility] Overall Financial Resource Strain (CARDIA) Difficulty of Paying Living Expenses: Not very hard Food Insecurity: No Food Insecurity (12/25/2023) Hunger Screening Food Insecurity - Worry: Never True Food Insecurity - Inability: Never True Transportation Needs: Unmet Transportation Needs (03/19/2023) Received from [facility] PRAPARE - Transportation Lack of Transportation (Medical): Yes Lack of Transportation (Non-Medical): No Physical Activity: Sufficiently Active (03/19/2023) Received from [facility] Exercise Vital Sign Days of Exercise per Week: 4 days Minutes of Exercise per Session: 90 min Stress: No Stress Concern Present (03/19/2023) Received from [facility] [place] [employer] - Occupational Stress Questionnaire Feeling of Stress : Only a little Social Connections: Socially Isolated (03/19/2023) Received from [facility] Social Connection and Isolation Panel [NHANES] Frequency of Communication with Friends and Family: Once a week Frequency of Social Gatherings with Friends and Family: Never Attends Yarsanism Services: Never Active Member of Clubs or Organizations: No Attends Club or Organization Meetings: Never Marital Status: Interpersonal Safety: Not At Risk (03/19/2023) Received from [facility] Humiliation, Afraid, Rape, and Kick questionnaire Fear of Current or Ex-Partner: No Emotionally Abused: No Physically Abused: No Sexually Abused: No Housing Instability: Low Risk (03/19/2023) [facility] Housing Stability Vital Sign Unable to Pay for Housing in the Last Year: No Number of Places Lived in the Last Year: 1 Unstable Housing in the Last Year: No Review of Systems Constitutional: Negative. Negative for chills, fatigue and fever. HENT: Negative. Eyes: Negative. Respiratory: Negative. Cardiovascular: Negative. Negative for chest pain. Gastrointestinal: Negative. Negative for bowel incontinence. Endocrine: Negative. Genitourinary: Negative. Negative for bladder incontinence. Musculoskeletal: Positive for back pain and neck pain. Skin: Negative. Allergic/Immunologic: Negative. Neurological: Positive for weakness (Right shoulder) and headaches (2 weekly on average). Negative for numbness. Hematological: Negative. Psychiatric/Behavioral: Negative. Vital Signs: BP 118/68 (BP Site: Right Arm, BP Postition: Sitting) Pulse 100 Resp 20 Physical Exam: GENERAL - Healthy patient that appears stated age. HEENT - Normocephalic / Atraumatic, Extraoccular movements intact, trachea midline, thyroid within normal limits. CV - pulse regular, Warm extremities with appropriate color of nailbeds. RESP - No obvious wheezing, No Shortness of Breath, No overexertion response to exam maneuvers. COORDINATION - remains intact. PSYCH - Alert and Oriented x4, Attentive and appropriate, constitutionally normal, displays normal mood and affect per situation, answered questions appropriately during examination, demonstrated appropriate attention during discussion, demonstrated appropriate cognitive reasoning and understanding of the medical condition by asking appropriate questions regarding the diagnosis and risks/benefits/alternatives of treatment modalities. No obvious deficits in memory, reasoning, or intellect. Cervical: SKIN - No rashes or bruising in the area of the patient s pain. LYMPH NODES - demonstrate no obvious enlargement. EXTREMITIES - Upper extremities are warm, with minimal edema and palpable pulses Tenderness to palpation noted in the cervical spine and paraspinal musculature. Pain is elicited with flexion, extension, and lateral rotation of the cervical spine. Range of motion is diminished with these motions due to pain. Facet palpation is noted to be somewhat tender but not concordant with the patient s normal pain complaints. STRENGTH - noted to be 5 out of 5 all muscle groups bilateral upper extremities including muscles involving shoulder flexion and abduction, elbow flexion and extension, as well as wrist flexion and extension and intrinsic muscles of the hand. No notable atrophy, fasciculations or spasm. SENSORY - No notable sensory deficits in the bilateral upper extremities to touch or pinprick in all dermatomal distributions with exception to decreased sensation in the Left C5 dermatomal distribution(s). Spurlings sign is Positive Distal Joint Exam - Upper Extremity: SKIN - No rashes or bruising in the area of the patient s pain. EXTREMITIES - Upper extremities are warm, with minimal edema and palpable pulses. Strength is 5/5 all muscle groups of the bilateral upper extremities. There is no obvious atrophy, fasciculations, or spasms. There are no notable sensory deficits in the overlying dermatomal distributions. Examination of the Left first CMC joint reveals tenderness to palpation over the joint space. Mild swelling is noted without significant erythema. Pain is elicited with flexion and extension of the joint. Assessment/Treatment Plan: Rhona was seen today for shoulder pain. Diagnoses and all orders for this visit: Cervical spondylosis without myelopathy Lumbosacral spondylosis without myelopathy - HYDROcodone-acetaminophen (NORCO) 5-325 mg per tablet; Take 1 tablet by mouth 4 (four) times a day as needed for pain. Max Daily Amount: 4 tablets Cervical disc displacement Neck pain - MR cervical spine without contrast; Future Primary osteoarthritis of first carpometacarpal joint of left hand - Case request operating room: INJECTION BURSA LARGE JOINT: left 1st CMC Encounter for long-term opiate analgesic use Refill [place] 5/325 mg TID PRN Cervical spine MRI - It is felt that additional diagnostic testing is necessary to further evaluate the patients current pain pathology. For this reason, we will order additional imaging noted above. It is hopeful that this study will identify a significant pain generator that will be amenable to therapy. It is felt that this modality is necessary due to the severity and chronicity of symptoms and physical exam findings combined with the lack of recent imaging of the area. An MRI is specifically felt to be necessary due to the physical exam findings noted above and the patient s description of refractory pain in a neuropathic distribution that is not relieved by change in body position and interferes with the patient s activities of daily living Left First CMC Injection - under fluoroscopy with the use of contrast dye (unless contraindicated) It is hopeful that the described procedure will provide symptomatic pain relief. It is felt to be medically necessary noting that the patient has tried and failed more conservative modalities of therapy and this is the next most appropriate step. The procedure was described in detail to the patient as well as the potential benefits of pain reduction alongside risks of the procedure and alternatives. Risks were described as including, but not limited to bleeding, infection, nerve damage, spinal cord injury, paralysis, stroke, dural puncture headache, and medication reaction. The patient expressed understanding regarding the risks and benefits and wishes to proceed. It was explained that CMC joint injections occasionally require a repeat injection before significant relief is noted, but we will determine after each injection if another one is indicated. Depending on the amount and duration of relief obtained from the injection, additional modalities of therapy including medications and physical therapy may need to be utilized alongside or following the injections. We may also need to consider surgical options if injections fail to provide relief for a reasonable duration. Follow up 2 weeks after procedure The medications I have prescribed have been reviewed for medication interactions/contraindications and/or for upcoming procedures: continue current medication regimen without any changes. DISCUSSION: Treatment options discussed with patient and all questions answered to patient's satisfaction. Discussed the rules and regulations surrounding prescription of opioids and compliance at length. Failure to follow the rules and regulation will result in tapering and discontinuation of medications if applicable. The patient has been instructed as to the type of medication prescribed along with directions for use. Potential side effects have been discussed, along with risks and benefits of taking this medication. (S)he was instructed as to what to do if (s)he experiences side effects, including when to discontinue the medication. (S)he was advised to call this office in this event. Also discussed at length safety and security of RX and medications. Due to the high risk nature of this patient's pain medication regimen, frequent office visit refill appointments (every 1-3 months) are medically necessary to monitor for an addiction disorder. Prescribed medication that requires intensive monitoring for toxicity: [place] and was refilled at today's office visit. OARRS and most recent UDS were reviewed, discussed and appropriate for medications prescribed. [place] pill count completed at today's office visit. Dose: 5/325 mg Quantity Dispensed 120 Quantity Remaining 46 Fill date on prescription bottle 12/06/2023 appropriate Patient educated to bring medication to every office visit. Treatment plans discussed but not opted for at this time: Cervical epidural steroid injection. Patient would like to proceed with the current outlined treatment plan before moving forward with any other options. It appears that the patient's previous pain is under adequate control with the previous procedure. At this point, we will continue to monitor these symptoms and turn our immediate attention to the more painful complaint that was discussed today. It does appear that is it the new primary pain complaint and the patient would likely benefit from a procedure as treatment for this complaint as well. The spine model was demonstrated and Xray and MRI was reviewed and used to explain the condition. Chronic conditions not treated during this visit that affected my overall medical decision making: Comorbidity- Diabetes The patient has a history of diabetes mellitus currently managed with medications. This will need to be considered prior to any procedure that would require the injection of steroid in that the patient may experience a transient increase in glucose as a result. Additional consideration will need to be given to timing the procedure early in the morning in that the patient will need to be fasting prior to the administration of anesthesia. Every effort will be made to perform the procedure as a 1st case due to this condition. And the patient will be instructed to hold their diabetic medications on that morning. If necessary, a blood glucose test can also be performed that morning. The risks/ benefits/ and alternatives will be weighed and explained to the patient prior to any procedure. OARRS: Reviewed. Scribe Statement: Scribed for and in the presence of AMEYA KINCAID by Rani Dominguez CNA. Provider Statement: I, AMEYA KINCAID, personally performed the services described in the documentation, as scribed by Rani Dominguez CNA in my presence, and it is both accurate and complete. Rani Dominguez CNA 12/25/23 1435 AMEYA Kincaid 12/25/23 1456 documented in this encounter [facility] 12-25-2023 Instructions Rani Dominguez CNA - 12/25/2023 1:30 PM EDT Joint Injections / Other These procedure(s) involve injecting steroid medications into a joint or other area explained by your physician. Steroid medicine decreases pain and inflammation. The injection may also contain an anesthetic (numbing medicine) to decrease pain. It may be done to treat conditions such as arthritis, gout, carpal tunnel syndrome and more. The injections may be given in your hip, knee, ankle, shoulder, elbow, wrist, or ankle. How Long Will This Procedure Last? The extent and duration of pain relief may depend on the amount of inflammation and how many areas are involved. Other coexisting factors may be responsible for your pain. You and your physician will discuss expected results of procedure(s). After Your Injection You may experience soreness and tenderness at the area of treatment. This pain may not occur until later today after the numbing medicine wears off. The steroid can take 3-5 days to work and provide noticeable improvement. Activity You may resume normal activity as your comfort level allows. Medications Resume your routine medications after your procedure. You may resume blood thinners per your regular schedule after the procedure. If you received sedation: If you received sedation for your procedure, you may feel sleepy or not yourself for several hours today. For the next 24 hours avoid activities that requires alertness or coordination. This includes: Driving or operating heavy machinery Using power tools Consuming alcohol Do not make important or complex decisions or sign legal documents in the next 24 hours. Other Instructions: If you feel severe pain at the injection site with swelling and redness, increased leg weakness, a fever of 101 or higher, headache (or worsening headache), changes in vision or urinary retention: Please call the office at , or have someone take you to the nearest emergency room. Tell the emergency room staff that you recently had a spine injection. A doctor must evaluate you for bleeding and injection complications. If you lose control over bowel, bladder, or legs: Go to the nearest emergency room. If you are diabetic, the steroids used in this procedure can increase your blood sugar. If your blood sugar is 250mg/dL or higher, contact your primary care physician, or the doctor who manages your diabetes, to discuss how to get it back to normal. [email or web address] Tele[facility] encounter Note Called patient DA and Alma in regards to following up if patient completed labs at another facility if so never received results and if needs orders resent . [facility] 12-25-2023 Miscellaneous Notes Called patient LVM and MyChart in regards to following up if patient completed labs at another facility if so never received results and if needs orders resent . Please call and schedule nonfasting labs this month. Originally sent orders 06/2023. No results received since 06/2023. Please obtain new results if completed. If not completed please complete nonfasting labs this month. If needed, Please resend orders cmp, cbc, esr, crp, vitamin D, quantiferon tb. Orders in epic. Please fax results to rheum office. Thank you! Temporary medication refilled Thank you. Patient's request for medication is as follows: Requested Prescriptions Pending Prescriptions Disp Refills cyclobenzaprine (FLEXERIL) 10 mg tablet 450 tablet 3 Sig: Take 1-2tabs 3times a day Prescription(s) as above. Please process accordingly. Eugenio Ellis MD Images from the original note were not included. Most recent Rheumatology visit: 04/06/2023 (with Eugenio Ellis) Rheumatology Care Team: None on file Recent Office Visits - This Specialty 04/06/2023 Ankylosing spondylitis of multiple sites in spine ([facility]) Rheumatology Eugenio Ellis MD 08/28/2022 Ankylosing spondylitis of multiple sites in spine ([facility]) Rheumatology Eugenio Ellis MD 11/11/2021 Ankylosing spondylitis of multiple sites in spine ([facility]) Rheumatology Eugenio Ellis MD Upcoming Rheumatology Appointments - Next 365 Days Visit Type Date Time Department [facility] 01/17/2024 12:40 PM [facility] CBC: Latest Ref Rng & Units 07/14/2020 01/19/2021 CBC WBC 3.70 - 11.00 k/uL 6.81 4.43 Hemoglobin 11.5 - 15.5 g/dL 12.8 12.0 Hematocrit 36.0 - 46.0 % 39.5 38.0 Platelet Count 150 - 400 k/uL 296 237 Vitamin D: None on file in the last 6 months LFT: Latest Ref Rng & Units 07/14/2020 01/19/2021 CMP Sodium 136 - 144 mmol/L 135 138 Potassium 3.7 - 5.1 mmol/L 4.5 5.1 Chloride 97 - 105 mmol/L 98 103 CO2 22 - 30 mmol/L 27 26 Glucose 74 - 99 mg/dL 170 172 BUN 7 - 21 mg/dL 11 18 Creatinine 0.58 - 0.96 mg/dL 0.81 0.91 Calcium 8.5 - 10.2 mg/dL 9.4 9.4 AST 13 - 35 U/L 20 14 ALT 7 - 38 U/L 33 13 Alkaline Phosphatase 34 - 123 U/L 94 94 Hepatic Function: Creatinine: None on file in the last 6 months ESR/CRP: None on file in the last 6 months Uric Acid: None on file in the last 6 months Open Standing (Multiple Instance) Lab Orders None Open Future (Single Instance) Lab Orders Expected Expires Ordered COMP METABOLIC PANEL [SQCMP] 10/07/23 07/09/24 07/09/23 Auth. provider: Eugenio Ellis MD Assoc. diagnoses: Elevated LFTs CBC [SQCBC] 10/07/23 07/09/24 07/09/23 Auth. provider: Eugenio Ellis MD Assoc. diagnoses: Anemia of chronic disease SED RATE WESTERGREN [SQWSR] 10/07/23 07/09/24 07/09/23 Auth. provider: Eugenio Ellis MD Assoc. diagnoses: Elevated sed rate, Elevated C-reactive protein (CRP) C-REACTIVE PROTEIN (CRP) [SQCRP] 10/07/23 07/09/24 07/09/23 Auth. provider: Eugenio Ellis MD Assoc. diagnoses: Elevated sed rate, Elevated C-reactive protein (CRP) VITAMIN D 25 HYDROXY [SQVITD] 10/07/23 07/09/24 07/09/23 Auth. provider: Eugenio Ellis MD Assoc. diagnoses: Vitamin D deficiency VITAMIN B12 BLOOD [SQB12] 10/07/23 07/09/24 07/09/23 Auth. provider: Eugenio Ellis MD Assoc. diagnoses: Vitamin B12 deficiency BLOOD TB SCREEN [SQINFTBP] 10/07/23 07/09/24 07/09/23 Auth. provider: Eugenio Ellis MD Assoc. diagnoses: Screening-pulmonary TB documented in this encounter [facility] 12-24-2023 Telephone encounter Note Duplicate See other refill note [facility] 12-24-2023 Miscellaneous Notes Duplicate See other refill note Images from the original note were not included. Pt electronically requests the following refill(s) Requested Prescriptions Pending Prescriptions Disp Refills cyclobenzaprine (FLEXERIL) 10 mg tablet 450 tablet 3 Sig: Take 1-2tabs 3times a day Jodi Gonzalez MA Most recent Rheumatology visit: 04/06/2023 (with Eugenio Ellis) Rheumatology Care Team: None on file Recent Office Visits - This Specialty 04/06/2023 Ankylosing spondylitis of multiple sites in spine ([facility]) Rheumatology Eugenio Ellis MD 08/28/2022 Ankylosing spondylitis of multiple sites in spine ([facility]) Rheumatology Eugenio Ellis MD 11/11/2021 Ankylosing spondylitis of multiple sites in spine ([facility]) Rheumatology Eugenio Ellis MD Upcoming Rheumatology Appointments - Next 365 Days Visit Type Date Time Department [facility] 01/17/2024 12:40 PM [facility] [place] CBC: Latest Ref Rng & Units 07/14/2020 01/19/2021 CBC WBC 3.70 - 11.00 k/uL 6.81 4.43 Hemoglobin 11.5 - 15.5 g/dL 12.8 12.0 Hematocrit 36.0 - 46.0 % 39.5 38.0 Platelet Count 150 - 400 k/uL 296 237 Vitamin D: None on file in the last 6 months LFT: Latest Ref Rng & Units 07/14/2020 01/19/2021 CMP Sodium 136 - 144 mmol/L 135 138 Potassium 3.7 - 5.1 mmol/L 4.5 5.1 Chloride 97 - 105 mmol/L 98 103 CO2 22 - 30 mmol/L 27 26 Glucose 74 - 99 mg/dL 170 172 BUN 7 - 21 mg/dL 11 18 Creatinine 0.58 - 0.96 mg/dL 0.81 0.91 Calcium 8.5 - 10.2 mg/dL 9.4 9.4 AST 13 - 35 U/L 20 14 ALT 7 - 38 U/L 33 13 Alkaline Phosphatase 34 - 123 U/L 94 94 Hepatic Function: Creatinine: None on file in the last 6 months ESR/CRP: None on file in the last 6 months Uric Acid: None on file in the last 6 months Open Standing (Multiple Instance) Lab Orders None Open Future (Single Instance) Lab Orders Expected Expires Ordered COMP METABOLIC PANEL [SQCMP] 10/07/23 07/09/24 07/09/23 Auth. provider: Eugenio Ellis MD Assoc. diagnoses: Elevated LFTs CBC [SQCBC] 10/07/23 07/09/24 07/09/23 Auth. provider: Eugenio Ellis MD Assoc. diagnoses: Anemia of chronic disease SED RATE WESTERGREN [SQWSR] 10/07/23 07/09/24 07/09/23 Auth. provider: Eugenio Ellis MD Assoc. diagnoses: Elevated sed rate, Elevated C-reactive protein (CRP) C-REACTIVE PROTEIN (CRP) [SQCRP] 10/07/23 07/09/24 07/09/23 Auth. provider: Eugenio Ellis MD Assoc. diagnoses: Elevated sed rate, Elevated C-reactive protein (CRP) VITAMIN D 25 HYDROXY [SQVITD] 10/07/23 07/09/24 07/09/23 Auth. provider: Eugenio Ellis MD Assoc. diagnoses: Vitamin D deficiency VITAMIN B12 BLOOD [SQB12] 10/07/23 07/09/24 07/09/23 Auth. provider: Eugenio Ellis MD Assoc. diagnoses: Vitamin B12 deficiency BLOOD TB SCREEN [SQINFTBP] 10/07/23 07/09/24 07/09/23 Auth. provider: Eugenio Ellis MD Assoc. diagnoses: Screening-pulmonary TB documented in this encounter [facility] 12-24-2023 Telephone encounter Note Please call and schedule nonfasting labs this month. Originally sent orders 06/2023. No results received since 06/2023. Please obtain new results if completed. If not completed please complete nonfasting labs this month. If needed, Please resend orders cmp, cbc, esr, crp, vitamin D, quantiferon tb. Orders in epic. Please fax results to rheum office. Thank you! Temporary medication refilled Thank you. Patient's request for medication is as follows: Requested Prescriptions Pending Prescriptions Disp Refills cyclobenzaprine (FLEXERIL) 10 mg tablet 450 tablet 3 Sig: Take 1-2tabs 3times a day Prescription(s) as above. Please process accordingly. Eugenio Ellis MD [facility] 12-24-2023 Telephone encounter Note See 12/20/23 note Good Afternoon, Hope you are doing well. Thank you for the update. 12/20/23 Received denial. Reconsideration letter is needed to move forward with this appeal. Patient must sign ' Designation of Capacitor Tester' form. Form placed on mail to your home address 12/20/23. Stay Safe & healthy, and Have a wonderful day! Warm regards, :) [facility] 12-24-2023 Miscellaneous Notes See 12/20/23 note Good Afternoon, Hope you are doing well. Thank you for the update. 12/20/23 Received denial. Reconsideration letter is needed to move forward with this appeal. Patient must sign ' Designation of Capacitor Tester' form. Form placed on mail to your home address 12/20/23. Stay Safe & healthy, and Have a wonderful day! Warm regards, :) documented in this encounter [facility] 12-24-2023 Telephone encounter Note Images from the original note were not included. Pt electronically requests the following refill(s) Requested Prescriptions Pending Prescriptions Disp Refills cyclobenzaprine (FLEXERIL) 10 mg tablet 450 tablet 3 Sig: Take 1-2tabs 3times a day Jodi Gonzalez MA Most recent Rheumatology visit: 04/06/2023 (with Eugenio Ellis) Rheumatology Care Team: None on file Recent Office Visits - This Specialty 04/06/2023 Ankylosing spondylitis of multiple sites in spine ([facility]) Rheumatology Eugenio Ellis MD 08/28/2022 Ankylosing spondylitis of multiple sites in spine ([facility]) Rheumatology Eugenio Ellis MD 11/11/2021 Ankylosing spondylitis of multiple sites in spine ([facility]) Rheumatology Eugenio Ellis MD Upcoming Rheumatology Appointments - Next 365 Days Visit Type Date Time Department [facility] 01/17/2024 12:40 PM [facility] [place] CBC: Latest Ref Rng & Units 07/14/2020 01/19/2021 CBC WBC 3.70 - 11.00 k/uL 6.81 4.43 Hemoglobin 11.5 - 15.5 g/dL 12.8 12.0 Hematocrit 36.0 - 46.0 % 39.5 38.0 Platelet Count 150 - 400 k/uL 296 237 Vitamin D: None on file in the last 6 months LFT: Latest Ref Rng & Units 07/14/2020 01/19/2021 CMP Sodium 136 - 144 mmol/L 135 138 Potassium 3.7 - 5.1 mmol/L 4.5 5.1 Chloride 97 - 105 mmol/L 98 103 CO2 22 - 30 mmol/L 27 26 Glucose 74 - 99 mg/dL 170 172 BUN 7 - 21 mg/dL 11 18 Creatinine 0.58 - 0.96 mg/dL 0.81 0.91 Calcium 8.5 - 10.2 mg/dL 9.4 9.4 AST 13 - 35 U/L 20 14 ALT 7 - 38 U/L 33 13 Alkaline Phosphatase 34 - 123 U/L 94 94 Hepatic Function: Creatinine: None on file in the last 6 months ESR/CRP: None on file in the last 6 months Uric Acid: None on file in the last 6 months Open Standing (Multiple Instance) Lab Orders None Open Future (Single Instance) Lab Orders Expected Expires Ordered COMP METABOLIC PANEL [SQCMP] 10/07/23 07/09/24 07/09/23 Auth. provider: Eugenio Ellis MD Assoc. diagnoses: Elevated LFTs CBC [SQCBC] 10/07/23 07/09/24 07/09/23 Auth. provider: Eugenio Ellis MD Assoc. diagnoses: Anemia of chronic disease SED RATE WESTERGREN [SQWSR] 10/07/23 07/09/24 07/09/23 Auth. provider: Eugenio Ellis MD Assoc. diagnoses: Elevated sed rate, Elevated C-reactive protein (CRP) C-REACTIVE PROTEIN (CRP) [SQCRP] 10/07/23 07/09/24 07/09/23 Auth. provider: Eugenio Ellis MD Assoc. diagnoses: Elevated sed rate, Elevated C-reactive protein (CRP) VITAMIN D 25 HYDROXY [SQVITD] 10/07/23 07/09/24 07/09/23 Auth. provider: Eugenio Ellis MD Assoc. diagnoses: Vitamin D deficiency VITAMIN B12 BLOOD [SQB12] 10/07/23 07/09/24 07/09/23 Auth. provider: Eugenio Ellis MD Assoc. diagnoses: Vitamin B12 deficiency BLOOD TB SCREEN [SQINFTBP] 10/07/23 07/09/24 07/09/23 Auth. provider: Eugenio Ellis MD Assoc. diagnoses: Screening-pulmonary TB [facility] 12-24-2023 Telephone encounter Note Images from the original note were not included. Most recent Rheumatology visit: 04/06/2023 (with Eugenio Ellis) Rheumatology Care Team: None on file Recent Office Visits - This Specialty 04/06/2023 Ankylosing spondylitis of multiple sites in spine ([facility]) Rheumatology Eugenio Ellis MD 08/28/2022 Ankylosing spondylitis of multiple sites in spine ([facility]) Rheumatology Eugenio Ellis MD 11/11/2021 Ankylosing spondylitis of multiple sites in spine ([facility]) Rheumatology Eugenio Ellis MD Upcoming Rheumatology Appointments - Next 365 Days Visit Type Date Time Department [facility] 01/17/2024 12:40 PM [facility] CBC: Latest Ref Rng & Units 07/14/2020 01/19/2021 CBC WBC 3.70 - 11.00 k/uL 6.81 4.43 Hemoglobin 11.5 - 15.5 g/dL 12.8 12.0 Hematocrit 36.0 - 46.0 % 39.5 38.0 Platelet Count 150 - 400 k/uL 296 237 Vitamin D: None on file in the last 6 months LFT: Latest Ref Rng & Units 07/14/2020 01/19/2021 CMP Sodium 136 - 144 mmol/L 135 138 Potassium 3.7 - 5.1 mmol/L 4.5 5.1 Chloride 97 - 105 mmol/L 98 103 CO2 22 - 30 mmol/L 27 26 Glucose 74 - 99 mg/dL 170 172 BUN 7 - 21 mg/dL 11 18 Creatinine 0.58 - 0.96 mg/dL 0.81 0.91 Calcium 8.5 - 10.2 mg/dL 9.4 9.4 AST 13 - 35 U/L 20 14 ALT 7 - 38 U/L 33 13 Alkaline Phosphatase 34 - 123 U/L 94 94 Hepatic Function: Creatinine: None on file in the last 6 months ESR/CRP: None on file in the last 6 months Uric Acid: None on file in the last 6 months Open Standing (Multiple Instance) Lab Orders None Open Future (Single Instance) Lab Orders Expected Expires Ordered COMP METABOLIC PANEL [SQCMP] 10/07/23 07/09/24 07/09/23 Auth. provider: Eugenio Ellis MD Assoc. diagnoses: Elevated LFTs CBC [SQCBC] 05/10/2507/09/24 07/09/23 Auth. provider: Eugenio Ellis MD Assoc. diagnoses: Anemia of chronic disease SED RATE WESTERGREN [SQWSR] 10/07/23 07/09/24 07/09/23 Auth. provider: Eugenio Ellis MD Assoc. diagnoses: Elevated sed rate, Elevated C-reactive protein (CRP) C-REACTIVE PROTEIN (CRP) [SQCRP] 10/07/23 07/09/24 07/09/23 Auth. provider: Eugenio Ellis MD Assoc. diagnoses: Elevated sed rate, Elevated C-reactive protein (CRP) VITAMIN D 25 HYDROXY [SQVITD] 10/07/23 07/09/24 07/09/23 Auth. provider: Eugenio Ellis MD Assoc. diagnoses: Vitamin D deficiency VITAMIN B12 BLOOD [SQB12] 10/07/23 07/09/24 07/09/23 Auth. provider: Eugenio Ellis MD Assoc. diagnoses: Vitamin B12 deficiency BLOOD TB SCREEN [SQINFTBP] 10/07/23 07/09/24 07/09/23 Auth. provider: Eugenio Ellis MD Assoc. diagnoses: Screening-pulmonary TB [facility] 12-20-2023 Telephone encounter Note Received denial. Reconsideration letter is needed to move forward with this appeal. Patient must sign ' Designation of Capacitor Tester' form. Form placed on mail to patient's home address. [facility] 12-19-2023 Telephone encounter Note Happy to support the appeal for twice a week enbrel since patient has responding positively for years. Thank you. [facility] 12-19-2023 Telephone encounter Note Called [facility] Specialty pharmacy regarding Enbrel -- rx was submitted for day -- They stated that pharmacy will only cover 10/01 per Fany schroeder rep . -- states that new PA needed - forwarded to [phone] completed PA over the phone with AMEYA Fernandes - PA denied PA denied due to exceeding once a week dosage pt notified via scriblet -- member will need to initiate request for appeal by signing the consent on the appeals form per AMEYA Fernandes [facility] PPO [id number] Secondary Visit Coverage Subscriber ID Name SSN Address [id number] RHONA GARCIA [id number] [place] [address] [address] [place] [address] awaiting appeal letter via fax [phone] [facility] 12-13-2023 Telephone encounter Note Left [facility] 12-13-2023 Miscellaneous Notes Left VM that lab orders have been faxed to [facility] with confirmation. Please call patient. Thank you for the update. Sorry to hear about your discomfort. New script sent to pharmacy. Please obtain lab results (last results received were from 06/2023). Recheck nonfasting labs in this month if not already completed since 06/2023, orders have been placed. If needed, Please resend orders cmp, cbc, esr, crp, vitamin D, quantiferon tb. Orders in epic. Please fax results to rheum office. Thank you! Hope you feel better soon! Warm regards, :) Patient's request for medication is as follows: Requested Prescriptions Signed Prescriptions Disp Refills predniSONE (DELTASONE) 5 mg tablet 21 tablet 1 Sig: Day 1=6tabs with food, Day 2=5tabs, Day 3=4tabs, Day 4=3tabs, Day 5=2tabs, Day 6=1tab, No NSAIDs on med Prescription(s) as above. Please process accordingly. Eugenio Ellis MD Most recent Rheumatology visit: 04/06/2023 (with Eugenio Ellis) Rheumatology Care Team: None on file Recent Office Visits - This Specialty 04/06/2023 Ankylosing spondylitis of multiple sites in spine ([facility]) Rheumatology Eugenio Ellis MD 08/28/2022 Ankylosing spondylitis of multiple sites in spine ([facility]) Rheumatology Eugenio Ellis MD 11/11/2021 Ankylosing spondylitis of multiple sites in spine ([facility]) Rheumatology Eugenio Ellis MD Upcoming Rheumatology Appointments - Next 365 Days Visit Type Date Time Department [facility] 01/10/2024 12:40 PM [facility] CBC: None on file in the last 6 months Vitamin D: None on file in the last 6 months LFT: None on file in the last 6 months Hepatic Function: Creatinine: None on file in the last 6 months ESR/CRP: None on file in the last 6 months Uric Acid: None on file in the last 6 months Open Standing (Multiple Instance) Lab Orders None Open Future (Single Instance) Lab Orders Expected Expires Ordered COMP METABOLIC PANEL [SQCMP] 10/07/23 07/09/24 07/09/23 Auth. provider: Eugenio Ellis MD Assoc. diagnoses: Elevated LFTs CBC [SQCBC] 10/07/23 07/09/24 07/09/23 Auth. provider: Eugenio Ellis MD Assoc. diagnoses: Anemia of chronic disease SED RATE WESTERGREN [SQWSR] 10/07/23 07/09/24 07/09/23 Auth. provider: Eugenio Ellis MD Assoc. diagnoses: Elevated sed rate, Elevated C-reactive protein (CRP) C-REACTIVE PROTEIN (CRP) [SQCRP] 10/07/23 07/09/24 07/09/23 Auth. provider: Eugenio Ellis MD Assoc. diagnoses: Elevated sed rate, Elevated C-reactive protein (CRP) VITAMIN D 25 HYDROXY [SQVITD] 10/07/23 07/09/24 07/09/23 Auth. provider: Eugenio Ellis MD Assoc. diagnoses: Vitamin D deficiency VITAMIN B12 BLOOD [SQB12] 10/07/23 07/09/24 07/09/23 Auth. provider: Eugenio Ellis MD Assoc. diagnoses: Vitamin B12 deficiency BLOOD TB SCREEN [SQINFTBP] 10/07/23 07/09/24 07/09/23 Auth. provider: Eugenio Ellis MD Assoc. diagnoses: Screening-pulmonary TB documented in this encounter [facility] 12-12-2023 Telephone encounter Note Please call patient. Thank you for the update. Sorry to hear about your discomfort. New script sent to pharmacy. Please obtain lab results (last results received were from 06/2023). Recheck nonfasting labs in this month if not already completed since 06/2023, orders have been placed. If needed, Please resend orders cmp, cbc, esr, crp, vitamin D, quantiferon tb. Orders in epic. Please fax results to rheum office. Thank you! Hope you feel better soon! Warm regards, :) Patient's request for medication is as follows: Requested Prescriptions Signed Prescriptions Disp Refills predniSONE (DELTASONE) 5 mg tablet 21 tablet 1 Sig: Day 1=6tabs with food, Day 2=5tabs, Day 3=4tabs, Day 4=3tabs, Day 5=2tabs, Day 6=1tab, No NSAIDs on med Prescription(s) as above. Please process accordingly. Eugenio Ellis MD [facility] 12-12-2023 Telephone encounter Note Most recent Rheumatology visit: 04/06/2023 (with Eugenio Ellis) Rheumatology Care Team: None on file Recent Office Visits - This Specialty 04/06/2023 Ankylosing spondylitis of multiple sites in spine ([facility]) Rheumatology Eugenio Ellis MD 08/28/2022 Ankylosing spondylitis of multiple sites in spine ([facility]) Rheumatology Eugenio Ellis MD 11/11/2021 Ankylosing spondylitis of multiple sites in spine ([facility]) Rheumatology Eugenio Ellis MD Upcoming Rheumatology Appointments - Next 365 Days Visit Type Date Time Department [facility] 01/10/2024 12:40 PM [facility] [place] CBC: None on file in the last 6 months Vitamin D: None on file in the last 6 months LFT: None on file in the last 6 months Hepatic Function: Creatinine: None on file in the last 6 months ESR/CRP: None on file in the last 6 months Uric Acid: None on file in the last 6 months Open Standing (Multiple Instance) Lab Orders None Open Future (Single Instance) Lab Orders Expected Expires Ordered COMP METABOLIC PANEL [SQCMP] 10/07/23 07/09/24 07/09/23 Auth. provider: Eugenio Ellis MD Assoc. diagnoses: Elevated LFTs CBC [SQCBC] 10/07/23 07/09/24 07/09/23 Auth. provider: Eugenio Ellis MD Assoc. diagnoses: Anemia of chronic disease SED RATE WESTERGREN [SQWSR] 10/07/23 07/09/24 07/09/23 Auth. provider: Eugenio Ellis MD Assoc. diagnoses: Elevated sed rate, Elevated C-reactive protein (CRP) C-REACTIVE PROTEIN (CRP) [SQCRP] 10/07/23 07/09/24 07/09/23 Auth. provider: Eugenio Ellis MD Assoc. diagnoses: Elevated sed rate, Elevated C-reactive protein (CRP) VITAMIN D 25 HYDROXY [SQVITD] 10/07/23 07/09/24 07/09/23 Auth. provider: Eugenio Ellis MD Assoc. diagnoses: Vitamin D deficiency VITAMIN B12 BLOOD [SQB12] 10/07/23 07/09/24 07/09/23 Auth. provider: Eugenio Ellis MD Assoc. diagnoses: Vitamin B12 deficiency BLOOD TB SCREEN [SQINFTBP] 10/07/23 07/09/24 07/09/23 Auth. provider: Eugenio Ellis MD Assoc. diagnoses: Screening-pulmonary TB [facility] 11-30-2023 Miscellaneous Notes Last OV: proc 11/30/23 Next OV: 12/25/23 OARRS appropriate: yes Last UDS: 07/03/23 Pharmacy: [facility] [place] Pt LM states [facility] [place] [facility] closing tomorrow 12/04/23 so they can't fill prescription. Requests this to be sent to [facility] [place] Order pending documented in this encounter [facility] 11-30-2023 Telephone encounter Note Last OV: proc 11/30/23 Next OV: 12/25/23 OARRS appropriate: yes Last UDS: 07/03/23 Pharmacy: [facility] [place] [facility] 11-30-2023 Telephone encounter Note Pt LM states [facility] [place] is closing tomorrow 12/04/23 so they can't fill prescription. Requests this to be sent to [facility] [place] Order pending [facility] 11-28-2023 Telephone encounter Note Images from the original note were not included. : Prior Authorization not required for patient/medication Note from payer: Your PA has been resolved, no additional PA is required. For further inquiries please contact the number on the back of the member prescription card. (Message [phone]) - Prescriber details have been updated to match the prescriber directory. [facility] [phone] Spoke with [facility] Special[facility] - they shipped pt's medication yesterday so pt should be receiving it by tomorrow [facility] 11-28-2023 Miscellaneous Notes Images from the original note were not included. : Prior Authorization not required for patient/medication Note from payer: Your PA has been resolved, no additional PA is required. For further inquiries please contact the number on the back of the member prescription card. (Message [phone]) - Prescriber details have been updated to match the prescriber directory. Payer: [employer] [facility] [phone] Spoke with [facility] - they shipped pt's medication yesterday so pt should be receiving it by tomorrow requested PA via surescripts awaiting questionnaire documented in this encounter [facility] 11-27-2023 Telephone encounter Note requested PA via surescripts awaiting questionnaire [facility] 11-19-2023 Telephone encounter Note Approval faxed to [facility] with confirmation. [facility] 11-19-2023 Miscellaneous Notes Approval faxed to [facility] with confirmation. documented in this encounter [facility] 11-14-2023 Telephone encounter Note PA for Enbrel completed by calling [facility] . Enbrel approved until 05/12/2025. Approval will be faxed to office. [facility] 11-14-2023 Miscellaneous Notes PA for Enbrel completed by calling [facility] . Enbrel approved until 05/12/2025. Approval will be faxed to office. documented in this encounter [facility] 11-13-2023 History of Present illness Narrative [facility] [address] [place] [address] Patient: Rhona Garica Sex: female : 1960 Age: 63 y.o. PCP: KATIE GARCIA, 11/13/2023 Rhona Garcia is here for a(n) post procedure follow up 08/24/2023 Left L4/5, 5/1 Radio Frequency Ablation with 80% relief continuing. 10/12/2023 Right L4/5, 5/1 Radio Frequency Ablation with 65% relief continuing. . Her worst pain now is in her right shoulder. Date of onset of pain: 2022 , pain has lasted greater than 3 months. Pain scale before treatment: 8/10 Pre-op pain score: 8/10 Percentage of relief after and duration: Left side 80% relief; Right side 65% relief both continuing today Pain scale after treatment: 10 Chief Complaint Patient presents with Back Pain Neck Pain HPI: PT/HEP 2018 Back: 06/21/18 oswaldo SI joint injection with no relief on left 75% temporary relief on right. Right SI RFA 01/09/2020 with no relief. 10/15/20 Right SI RFA with 75% relief 03/04/21 RFA Left L 4/5, 5/1 with 50% relief currently. 12/27/18 Caudal not helpful. left lumbar RFA w/75% relief Right SI joint injection on 04/22/2021 with 80% relief then went down to 50% relief. 05/23/21 Right RFA L 4/5, 5/ with 50% relief. 02/17/22 Caudal with no relief reported. 08/26/2021 Right SI injection w/ 50% Right SI joint injection 03/17/2022 50% relief. 10/27/2022 Right Sacroiliac Injection with 75% relief continuing Right SI joint injection on 06/16/2022 with at least 50% relief. 07/21/22 Rt L 4/5 5 RFA w/50% relief pre-proc pain pre-proc pain 7/10 post proc 08/11 until Jul 2023 08/04/22 Lt L 09/06 10/02 RFA w/50% relief pre-proc pain 8/10 post proc pain /10 until Jul 2023 01/26/23 Oswaldo SI Inj w/80% relief continued 07/19/2022 Bilateral Sacroiliac Joint injection with 85% relief x 2 hours, and 50% relief continuing today Bilateral SI joint injection 05/18/23 with 85% relief for 2 hours and 50% continued relief. Thumb: 09/22/22 Left CMC joint injection with 90% relief 04/06/2023 left wrist injection with 50% relief that continues post procedure follow up left wrist injection on 07/13/2023 with 80% relief. Pre-procedural pain was reported as 6/10 post proc pain is /10 08/24/2023 Left L4/5, 5/1 Radio Frequency Ablation with 80% relief continuing. Pre procedure pain 8/10. Post procedure pain 2/10 10/12/2023 Right L4/5, 5/1 Radio Frequency Ablation with 65% relief continuing. Pre procedure pain 8/10. Post procedure pain 3/10 Neck: 06/08/19 Left C5/6,6/7, 7/1 no relief. JOANNE C 7/ on 07/16/20 w/75% relief. Back Pain This is a chronic problem. The current episode started more than 1 year ago (20+ years). The problem occurs constantly. The problem has been gradually worsening since onset. The pain is present in the sacro-iliac, lumbar spine, gluteal and thoracic spine. The quality of the pain is described as aching, stabbing and shooting. The pain does not radiate. The pain is at a severity of 5/10 (5/10 thoracic/ 2/10 lumbar). The pain is moderate. The pain is The same all the time. Exacerbated by: prolonged standing, walking and sitting ; lying down, stairs, bending, twisting, pushing/pulliing, cough/sneeze, transitioing, cold/heat Stiffness is present All day (varies with activity). Associated symptoms include headaches (2 weekly on average) and weakness (Right shoulder). Pertinent negatives include no bladder incontinence, bowel incontinence, chest pain, fever, leg pain, numbness or tingling. Risk factors include sedentary lifestyle. Treatments tried: PT/HEP 2019 w/no relief, NSAIDsx3 (naproxen, motrin, ibuprofen), heat, Flexeril, Neurontin, Elavil & [place] w/ some relief, OTC Arnica cream w/ mod relief. The treatment provided moderate relief. Neck Pain This is a chronic problem. The problem occurs constantly. The problem has been gradually worsening. The pain is associated with nothing. The pain is present in the left side, midline and right side (radiates into right shoulder). The quality of the pain is described as aching (stiffness). The pain is at a severity of 8/10. The pain is severe. The symptoms are aggravated by coughing, position, stress, sneezing, swallowing, twisting and bending. The pain is Same all the time. Stiffness is present All day, in the morning and at night. Associated symptoms include headaches (2 weekly on average) and weakness (Right shoulder). Pertinent negatives include no chest pain, fever, leg pain, numbness or tingling. She has tried acetaminophen, muscle relaxants and home exercises for the symptoms. Wrist Pain The pain is present in the left wrist, right wrist, left hand and right hand. This is a chronic problem. The current episode started more than 1 year ago. There has been no history of extremity trauma. The problem occurs constantly. The problem has been unchanged. The quality of the pain is described as aching. Pain scale: 6/10 right hand/wrist; 5/10left hand/wrist. Associated symptoms include a limited range of motion (right shoulder). Pertinent negatives include no fever, numbness or tingling. Associated symptoms comments: Wrist pain increases while using steering wheel . The symptoms are aggravated by activity. She has tried NSAIDS, heat and acetaminophen for the symptoms. The treatment provided mild relief. The effect of pain on patient's ADLS: Moderate Impairment. Past Medical History: Diagnosis Date Ankylosing spondylitis ([facility]) Asthma as a child Astigmatism contacts Back pain Benign ovarian tumor Carpal tunnel syndrome Cervical disc syndrome Chronic musculoskeletal pain Chronic pain disorder Diabetes mellitus type 2, controlled (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) Syncope Vertigo Past Surgical History: Procedure Laterality Date CARPAL TUNNEL RELEASE Right EXCISION MASS Left 12/26/2018 Performed by Higinio Okeefe MD at [facility] Right Thumb joint replacement INJECTION BLOCK EPIDURAL CAUDAL STEROID N/A 02/17/2022 Performed by Sky Hemphill MD at [facility] INJECTION BLOCK EPIDURAL CERVICAL/THORACIC: C71 JOANNE N/A 07/16/2020 Performed by Sky Hemphill MD at [facility] INJECTION BLOCK NERVE MEDIAL BRANCH: left [id number] 67 [id number] Left 06/18/2020 Performed by Sky Hemphill MD at [facility] INJECTION BLOCK SACROILIAC JOINT Bilateral 05/18/2023 Performed by Sky Hemphill MD at [facility] INJECTION BLOCK SACROILIAC JOINT Bilateral 01/26/2023 Performed by Sky Hemphill MD at [facility] INJECTION BLOCK SACROILIAC JOINT Right 10/27/2022 Performed by Sky Hemphill MD at [facility] INJECTION BLOCK SACROILIAC JOINT Right 03/17/2022 Performed by Sky Hemphill MD at [facility] INJECTION BLOCK SACROILIAC JOINT Right 08/26/2021 Performed by Sky Hemphill MD at [facility] INJECTION BLOCK SACROILIAC JOINT Right 04/22/2021 Performed by Sky Hemphill MD at [facility] INJECTION BLOCK SACROILIAC JOINT Right 10/15/2020 Performed by Sky Hemphill MD at [facility] INJECTION BLOCK SACROILIAC JOINT: Right 06/16/2022 Performed by Sky Hemphill MD at [facility] INJECTION BURSA INTERMEDIATE Left Wrist Left 07/13/2023 Performed by Sky Hemphill MD at [facility] INJECTION BURSA INTERMEDIATE Left wrist Left 04/06/2023 Performed by Sky Hemphill MD at [facility] INJECTION BURSA LARGE JOINT: left CMC Left 09/22/2022 Performed by Sky Hemphill MD at [facility] INJECTION BURSA LARGE JOINT: right shoulder Right 02/16/2023 Performed by Sky Hemphill MD at [facility] INJECTION BURSA SMALL JOINT: wrist injection Left 10/07/2018 Performed by Sky Hemphill MD at [facility] CAUDAL EPIDURAL WITH CATHETER, STEROID N/A 2018 Performed by Sky Hemphill MD at [facility] LARGE JOINT BURSA: left ankle Left 10/22/2017 Performed by Sky Hemphill MD at [facility] INJECTION MEDIAL BRANCH NERVE BLOCK: left L34 45 51 Left 11/18/2018 Performed by Sky Hemphill MD at [facility] INJECTION SACROILIAC NERVE Bilateral 04/21/2019 Performed by Sky Hemphill MD at [facility] INJECTION SACROILIAC NERVE Left 11/01/2018 Performed by Sky Hemphill MD at [facility] JOINT REPLACEMENT Bilateral RADIO FREQUENCY ABLATION: left L34 45 [id number] Left 12/27/2018 Performed by Sky Hemphill MD at [facility] RADIO FREQUENCY ABLATION: left L34 4551 Left 10/31/2019 Performed by Sky Hemphill MD at [facility] RADIO FREQUENCY ABLATION: right L34 45 51 Right 10/17/2019 Performed by Sky Hemphill MD at [facility] RADIO FREQUENCY ABLATION: right SI Right 05/16/2019 Performed by Sky Hemphill MD at [facility] RADIO FREQUENCY ABLATION: right SI rfa Right 01/09/2020 Performed by Sky Hemphill MD at [facility] RADIOFREQUENCY ABLATION SPINAL: left L 4/5 5/ Left 08/04/2022 Performed by Sky Hemphill MD at [facility] RADIOFREQUENCY ABLATION SPINAL: left L 4/5 5/ Left 03/04/2021 Performed by Sky Hemphill MD at [facility] RADIOFREQUENCY ABLATION SPINAL: left L 4/5, 5/ Left 08/24/2023 Performed by Sky Hemphill MD at [facility] RADIOFREQUENCY ABLATION SPINAL: right L 4/5 5/ Right 07/21/2022 Performed by Sky Hemphill MD at [facility] RADIOFREQUENCY ABLATION SPINAL: right L 4/5 / Right 05/23/2021 Performed by Sky Hemphill MD at [facility] RADIOFREQUENCY ABLATION SPINAL: right L 4/5, / Right 10/12/2023 Performed by Sky Hemphill MD at [facility] RADIOFREQUENCY ABLATION SPINAL: right L34 45 51 Right 05/18/2017 Performed by Syk Hemphill MD at [facility] RADIOFREQUENCY ABLATION SPINAL: right SI Right 11/02/2017 Performed by Sky Hemphill MD at [facility] RADIOFREQUENCY ABLATION SPINAL: Right SI Right 03/05/2017 Performed by Sky Hemphill MD at [facility] RELEASE CARPAL TUNNEL Left 12/26/2018 Performed by Higinio Okeefe MD at [facility] REPAIR TENDON FINGER, 5th finger muscle repair Left 11/22/2020 Performed by Rahat Hirsch MD at [facility] TUBAL LIGATION Allergies Allergen Reactions Cinnamon Analogues Swelling Throat swells Coconut Swelling Throat swells Sulfa (Sulfonamide Antibiotics) Anaphylaxis ivp dye ok per pt noted for pain clinic House Dust Other reaction(s): Other: See Comments itching eyes, scratchy throat Oxycodone-Acetaminophen Other reaction(s): nightmares Darvocet A500 [Propoxyphene N-Acetaminophen] Other (See Comments) Nightmares Lactase GI Disturbance Shellfish Containing Products Abdominal Pain Ok for ivp dye per pt Noted for pain clinic Tizanidine (Bulk) Abdominal Pain Tree Nuts Abdominal Pain Family History Problem Relation Age of Onset Cancer Mother Stroke Father Social History Socioeconomic History Marital status: Single Spouse name: Not on file Number of children: Not on file Years of education: Not on file Highest education level: Not on file Occupational History Not on file Tobacco Use Smoking status: Never Smokeless tobacco: Never Vaping Use Vaping status: Never Used Substance and Sexual Activity Alcohol use: No Alcohol/week: 0.0 standard drinks of alcohol Comment: stopped 6-7 years ago Drug use: No Sexual activity: Defer Partners: Male Other Topics Concern Not on file Social History Narrative Not on file Social Determinants of Health Financial Resource Strain: Low Risk (03/19/2023) Received from [facility] Overall Financial Resource Strain (CARDIA) Difficulty of Paying Living Expenses: Not very hard Food Insecurity: No Food Insecurity (11/13/2023) Hunger Screening Food Insecurity - Worry: Never True Food Insecurity - Inability: Never True Transportation Needs: Unmet Transportation Needs (03/19/2023) Received from [facility] PRAPARE - Transportation Lack of Transportation (Medical): Yes Lack of Transportation (Non-Medical): No Physical Activity: Sufficiently Active (03/19/2023) Received from [facility] Exercise Vital Sign Days of Exercise per Week: 4 days Minutes of Exercise per Session: 90 min Stress: No Stress Concern Present (03/19/2023) Received from [facility] - Occupational Stress Questionnaire Feeling of Stress : Only a little Social Connections: Socially Isolated (03/19/2023) Received from [facility] Social Connection and Isolation Panel [NHANES] Frequency of Communication with Friends and Family: Once a week Frequency of Social Gatherings with Friends and Family: Never Attends Yarsanism Services: Never Active Member of Clubs or Organizations: No Attends Club or Organization Meetings: Never Marital Status: Interpersonal Safety: Not At Risk (03/19/2023) Received from [facility] Humiliation, Afraid, Rape, and Kick questionnaire Fear of Current or Ex-Partner: No Emotionally Abused: No Physically Abused: No Sexually Abused: No Housing Instability: Low Risk (03/19/2023) Received from [facility] Housing Stability Vital Sign Unable to Pay for Housing in the Last Year: No Number of Places Lived in the Last Year: 1 Unstable Housing in the Last Year: No Review of Systems Constitutional: Negative. Negative for fever. HENT: Negative. Eyes: Negative. Respiratory: Negative. Cardiovascular: Negative for chest pain. Gastrointestinal: Negative. Negative for bowel incontinence. Genitourinary: Negative. Negative for bladder incontinence. Musculoskeletal: Positive for back pain and neck pain. Skin: Negative. Neurological: Positive for weakness (Right shoulder) and headaches (2 weekly on average). Negative for tingling and numbness. Vital Signs: BP 122/80 Pulse 87 Resp 18 Ht 175.3 cm (5' 9 ) Wt 72.6 kg (160 lb) SpO2 99% BMI 23.63 kg/m Physical Exam: GENERAL - Healthy patient that appears stated age. HEENT - Normocephalic / Atraumatic, Extraoccular movements intact, trachea midline, thyroid within normal limits. CV - pulse regular, Warm extremities with appropriate color of nailbeds. RESP - No obvious wheezing, No Shortness of Breath, No overexertion response to exam maneuvers. COORDINATION - remains intact. PSYCH - Alert and Oriented x4, Attentive and appropriate, constitutionally normal, displays normal mood and affect per situation, answered questions appropriately during examination, demonstrated appropriate attention during discussion, demonstrated appropriate cognitive reasoning and understanding of the medical condition by asking appropriate questions regarding the diagnosis and risks/benefits/alternatives of treatment modalities. No obvious deficits in memory, reasoning, or intellect. Cervical: SKIN - No rashes or bruising in the area of the patient s pain. LYMPH NODES - demonstrate no obvious enlargement. EXTREMITIES - Upper extremities are warm, with minimal edema and palpable pulses. No Significant tenderness to palpation noted in the cervical spine and paraspinal musculature. Minimal pain is elicited with flexion, extension, and lateral rotation of the cervical spine. Range of motion is not diminished with these motions. Facet palpation is noted to be minimally painful, but not concordant with the patient s normal pain complaints. STRENGTH - noted to be 5 out of 5 all muscle groups bilateral upper extremities including muscles involving shoulder flexion and abduction, elbow flexion and extension, as well as wrist flexion and extension and intrinsic muscles of the hand. No notable atrophy, fasciculations or spasm. SENSORY - No notable sensory deficits in the bilateral upper extremities to touch or pinprick in all dermatomal distributions. Spurlings sign is negative. Tenderness to palpation noted over the Right Shoulder Joint. Pain is noted with palpation of the acromion and clavical as well as the acromioclavicular junction. No significant pain at the sternoclavicular junction. Some pain is noted at the bicipital groove and the subacromial bursa. Pain is elicited with flexion, abduction, internal rotation, and external rotation of the shoulder with active and passive motion which is consistent with some of the patient s normal pain. Some grinding is noted with these motions. No obvious ligamental laxity is noted. Empty Can Test is negative. Neers Sign is negative. Assessment/Treatment Plan: Rhona was seen today for back pain and neck pain. Diagnoses and all orders for this visit: Localized osteoarthritis of right shoulder - Case request operating room: INJECTION BURSA LARGE JOINT: right shoulder Encounter for long-term opiate analgesic use Continue [place] 5/325 mg QID PRN Right Shoulder Injection -under fluoroscopy with the use of contrast dye (unless contraindicated) It is hopeful that the described procedure will provide symptomatic pain relief. It is felt to be medically necessary noting that the patient has tried and failed more conservative modalities of therapy and this is the next most appropriate step. The procedure was described in detail to the patient as well as the potential benefits of pain reduction alongside risks of the procedure and alternatives. Risks were described as including, but not limited to bleeding, infection, nerve damage, spinal cord injury, paralysis, stroke, dural puncture headache, and medication reaction. The patient expressed understanding regarding the risks and benefits and wishes to proceed. It was explained that shoulder injections occasionally require a repeat injection before significant relief is noted, but we will determine after each injection if another one is indicated. Depending on the amount and duration of relief obtained from the injection, additional modalities of therapy including medications and physical therapy may need to be utilized alongside or following the injections. We may also need to consider surgical options if injections fail to provide relief for a reasonable duration. Follow up 2 weeks after procedure The medications I have prescribed have been reviewed for medication interactions/contraindications and/or for upcoming procedures: continue current medication regimen without any changes. DISCUSSION: Treatment options discussed with patient and all questions answered to patient's satisfaction. Discussed the rules and regulations surrounding prescription of opioids and compliance at length. Failure to follow the rules and regulation will result in tapering and discontinuation of medications if applicable. The patient has been instructed as to the type of medication prescribed along with directions for use. Potential side effects have been discussed, along with risks and benefits of taking this medication. (S)he was instructed as to what to do if (s)he experiences side effects, including when to discontinue the medication. (S)he was advised to call this office in this event. Also discussed at length safety and security of RX and medications. Due to the high risk nature of this patient's pain medication regimen, frequent office visit refill appointments (every 1-3 months) are medically necessary to monitor for an addiction disorder. Prescribed medication that requires intensive monitoring for toxicity [place]. Orthopedic surgery consult. OARRS and most recent UDS were reviewed, discussed and appropriate for medications prescribed. [place] pill count completed at today's office visit. Dose: 5-325 tablet; 1 tablet QD as needed Quantity Dispensed 120 Quantity Remaining 96 Fill date on prescription bottle 11/06/2023 appropriate Patient educated to bring medication to every office visit. Treatment plans discussed but not opted for at this time: Patient would like to proceed with the current outlined treatment plan before moving forward with any other options. It appears that the patient's previous pain is under adequate control with the previous procedure. At this point, we will continue to monitor these symptoms and turn our immediate attention to the more painful complaint that was discussed today. It does appear that is it the new primary pain complaint and the patient would likely benefit from a procedure as treatment for this complaint as well. Xray was reviewed and used to explain the condition. Chronic conditions not treated during this visit that affected my overall medical decision making: Comorbidity- Diabetes The patient has a history of diabetes mellitus currently managed with medications. This will need to be considered prior to any procedure that would require the injection of steroid in that the patient may experience a transient increase in glucose as a result. Additional consideration will need to be given to timing the procedure early in the morning in that the patient will need to be fasting prior to the administration of anesthesia. Every effort will be made to perform the procedure as a 1st case due to this condition. And the patient will be instructed to hold their diabetic medications on that morning. If necessary, a blood glucose test can also be performed that morning. The risks/ benefits/ and alternatives will be weighed and explained to the patient prior to any procedure. OARRS: Reviewed. Scribe Statement: Scribed for and in the presence of AMEYA KINCAID by Rani Dominguez CNA. Provider Statement: I, AMEYA KINCAID, personally performed the services described in the documentation, as scribed by Rani Dominguez CNA in my presence, and it is both accurate and complete. Rani Dominguez CNA 11/13/23 1056 AMEYA Kincaid 11/13/23 1211 documented in this encounter [facility] 11-13-2023 Instructions Rani DominguezANA - 11/13/2023 10:15 AM EDT Joint Injections / Other These procedure(s) involve injecting steroid medications into a joint or other area explained by your physician. Steroid medicine decreases pain and inflammation. The injection may also contain an anesthetic (numbing medicine) to decrease pain. It may be done to treat conditions such as arthritis, gout, carpal tunnel syndrome and more. The injections may be given in your hip, knee, ankle, shoulder, elbow, wrist, or ankle. How Long Will This Procedure Last? The extent and duration of pain relief may depend on the amount of inflammation and how many areas are involved. Other coexisting factors may be responsible for your pain. You and your physician will discuss expected results of procedure(s). After Your Injection You may experience soreness and tenderness at the area of treatment. This pain may not occur until later today after the numbing medicine wears off. The steroid can take 3-5 days to work and provide noticeable improvement. Activity You may resume normal activity as your comfort level allows. Medications Resume your routine medications after your procedure. You may resume blood thinners per your regular schedule after the procedure. If you received sedation: If you received sedation for your procedure, you may feel sleepy or not yourself for several hours today. For the next 24 hours avoid activities that requires alertness or coordination. This includes: Driving or operating heavy machinery Using power tools Consuming alcohol Do not make important or complex decisions or sign legal documents in the next 24 hours. Other Instructions: If you feel severe pain at the injection site with swelling and redness, increased leg weakness, a fever of 101 or higher, headache (or worsening headache), changes in vision or urinary retention: Please call the office at , or have someone take you to the nearest emergency room. Tell the emergency room staff that you recently had a spine injection. A doctor must evaluate you for bleeding and injection complications. If you lose control over bowel, bladder, or legs: Go to the nearest emergency room. If you are diabetic, the steroids used in this procedure can increase your blood sugar. If your blood sugar is 250mg/dL or higher, contact your primary care physician, or the doctor who manages your diabetes, to discuss how to get it back to normal. documented in this encounter [facility] 11-06-2023 Miscellaneous Notes Last OV: 08/02/2023 Next OV: 11/13/2023 OARRS appropriate: yes Last UDS: 07/03/2023 Pharmacy: [facility] documented in this encounter [facility] 11-06-2023 Telephone encounter Note Last OV: 08/02/2023 Next OV: 11/13/2023 OARRS appropriate: yes Last UDS: 07/03/2023 Pharmacy: [facility] 10-03-2023 Miscellaneous Notes Last OV: 08/02/2023 Next OV: --- OARRS appropriate: yes Last UDS: 07/03/2023 Pharmacy: [facility] documented in this encounter [facility] 10-03-2023 Telephone encounter Note Last OV: 08/02/2023 Next OV: --- OARRS appropriate: yes Last UDS: 07/03/2023 [facility]acy: [facility] 09-20-2023 Miscellaneous Notes Notify patient medication sent as requested Thank you. Patient's request for medication is as follows: Requested Prescriptions Pending Prescriptions Disp Refills cyclobenzaprine (FLEXERIL) 10 mg tablet 450 tablet 3 Sig: Take 1-2tabs 3times a day Prescription(s) as above. Please process accordingly. Eugenio Ellis MD Most recent Rheumatology visit: 04/06/2023 (with Eugenio Ellis) Rheumatology Care Team: None on file Recent Office Visits - This Specialty 04/06/2023 Ankylosing spondylitis of multiple sites in spine ([facility]) Rheumatology Eugenio Ellis MD 08/28/2022 Ankylosing spondylitis of multiple sites in spine ([facility]) Rheumatology Eugenio Ellis MD 11/11/2021 Ankylosing spondylitis of multiple sites in spine ([facility]) Rheumatology Eugenio Ellis MD Upcoming Rheumatology Appointments - Next 365 Days Visit Type Date Time Department [facility] 01/10/2024 12:40 PM [facility] CBC: None on file in the last 6 months Vitamin D: None on file in the last 6 months LFT: None on file in the last 6 months Hepatic Function: Creatinine: None on file in the last 6 months ESR/CRP: None on file in the last 6 months Uric Acid: None on file in the last 6 months Open Standing (Multiple Instance) Lab Orders None Open Future (Single Instance) Lab Orders Expected Expires Ordered COMP METABOLIC PANEL [SQCMP] 02/09/23 11/10/23 11/09/22 Auth. provider: Eugenio Ellis MD Assoc. diagnoses: Elevated LFTs CBC [SQCBC] 02/09/23 11/10/23 11/09/22 Auth. provider: Eugenio Ellis MD Assoc. diagnoses: Anemia of chronic disease SED RATE WESTERGREN [SQWSR] 02/09/23 11/10/23 11/09/22 Auth. provider: Eugenio Ellis MD Assoc. diagnoses: Elevated sed rate, Elevated C-reactive protein (CRP) C-REACTIVE PROTEIN (CRP) [SQCRP] 02/09/23 11/10/23 11/09/22 Auth. provider: Eugenio Ellis MD Assoc. diagnoses: Elevated sed rate, Elevated C-reactive protein (CRP) VITAMIN D 25 HYDROXY [SQVITD] 02/09/23 11/10/23 11/09/22 Auth. provider: Eugenio Ellis MD Assoc. diagnoses: Vitamin D deficiency COMP METABOLIC PANEL [SQCMP] 10/07/23 07/09/24 07/09/23 Auth. provider: Eugenio Ellis MD Assoc. diagnoses: Elevated LFTs CBC [SQCBC] 10/07/23 07/09/24 07/09/23 Auth. provider: Eugenio Ellis MD Assoc. diagnoses: Anemia of chronic disease SED RATE WESTERGREN [SQWSR] 10/07/23 07/09/24 07/09/23 Auth. provider: Eugenio Ellis MD Assoc. diagnoses: Elevated sed rate, Elevated C-reactive protein (CRP) C-REACTIVE PROTEIN (CRP) [SQCRP] 10/07/23 07/09/24 07/09/23 Auth. provider: Eugenio Ellis MD Assoc. diagnoses: Elevated sed rate, Elevated C-reactive protein (CRP) VITAMIN D 25 HYDROXY [SQVITD] 10/07/23 07/09/24 07/09/23 Auth. provider: Eugneio Ellis MD Assoc. diagnoses: Vitamin D deficiency VITAMIN B12 BLOOD [SQB12] 10/07/23 07/09/24 07/09/23 Auth. provider: Eugenio Ellis MD Assoc. diagnoses: Vitamin B12 deficiency BLOOD TB SCREEN [SQINFTBP] 10/07/23 07/09/24 07/09/23 Auth. provider: Eugenio Ellis MD Assoc. diagnoses: Screening-pulmonary TB documented in this encounter [facility] 09-06-2023 Miscellaneous Notes Last Office Visit: 08/02/2023 Next Office Visit: Visit date not found Last Urine Drug Screen: Lab Results Component Value Date BENZOSCRN Negative 07/03/2023 OARRS appropriate documented in this encounter [facility] 09-06-2023 Telephone encounter Note Last Office Visit: 08/02/2023 Next Office Visit: Visit date not found Last Urine Drug Screen: Lab Results Component Value Date BENZOSCRN Negative 07/03/2023 OARRS appropriate [facility] 08-17-2023 Miscellaneous Notes PA for Enbrel submitted via Cover My Meds. Alvarez: [id number] Outcome Approved today Your request has been approved Authorization Expiration Date: 08/16/2024 documented in this encounter [facility] 08-08-2023 Miscellaneous Notes Called patient to schedule procedure. No answer. Left message. Patient called back. Left side scheduled. documented in this encounter [facility] 08-08-2023 Telephone encounter Note Called patient to schedule procedure. No answer. Left message. [facility] 08-08-2023 Telephone encounter Note Patient called back. Left side scheduled. [facility] 08-02-2023 History of Present illness Narrative [facility] [address] [place] [address] Patient: Rhona Garcia Sex: female : 1960 Age: 63 y.o. PCP: KATIE GARCIA, DO 08/02/2023 Rhona Garcia is here for a(n) post procedure follow up left wrist injection on 07/13/2023 with 80% relief. Pre-procedural pain was reported as 6/10. Post procedure pain level is 2/10. She reports her worst pain now is in her low back. She reports her low back pain started to increase just recently but had been feeling good until then. Chief Complaint Patient presents with Extremity Pain Back Pain HPI: PT/HEP 2018 Back: 06/21/18 oswaldo SI joint injection with no relief on left 75% temporary relief on right. Right SI RFA 01/09/2020 with no relief. 10/15/20 Right SI RFA with 75% relief 03/04/21 RFA Left L 4/5, 5/1 with 50% relief currently. 12/27/18 Caudal not helpful. left lumbar RFA w/75% relief Right SI joint injection on 04/22/2021 with 80% relief then went down to 50% relief. 05/23/21 Right RFA L 4/5, 5/1 with 50% relief. 02/17/22 Caudal with no relief reported. 08/26/2021 Right SI injection w/ 50% Right SI joint injection 03/17/2022 50% relief. 10/27/2022 Right Sacroiliac Injection with 75% relief continuing Right SI joint injection on 06/16/2022 with at least 50% relief. 07/21/22 Rt L 4/5 5/1 RFA w/50% relief pre-proc pain pre-proc pain 7/10 post proc / until Jul 2023 08/04/22 Lt L 4/5 5/ RFA w/50% relief pre-proc pain 8/10 post proc pain 4/10 until Jul 2023 01/26/23 Oswaldo SI Inj w/80% relief continued 07/19/2022 Bilateral Sacroiliac Joint injection with 85% relief x 2 hours, and 50% relief continuing today Bilateral SI joint injection 05/18/23 with 85% relief for 2 hours and 50% continued relief. Thumb: 09/22/22 Left CMC joint injection with 90% relief 04/06/2023 left wrist injection with 50% relief that continues post procedure follow up left wrist injection on 07/13/2023 with 80% relief. Pre-procedural pain was reported as 6/10 post proc pain is 2/10 Neck: 06/08/19 Left C5/6,6/7, 7/ no relief. JOANNE C 12/02 on 07/16/20 w/75% relief. Back Pain This is a chronic problem. The current episode started more than 1 year ago (20+ years). The problem occurs constantly. The problem has been gradually worsening since onset. The pain is present in the sacro-iliac, lumbar spine and gluteal. The quality of the pain is described as aching, stabbing and shooting. The pain does not radiate. Pain scale: 7.5/10; left side more painful than right. The pain is moderate. The pain is The same all the time. Exacerbated by: prolonged standing, walking and sitting ; lying down, stairs, bending, twisting, pushing/pulliing, cough/sneeze, transitioing, cold/heat Stiffness is present All day (varies with activity). Associated symptoms include headaches (weekly on average), numbness (bilateral hands and feet) and weakness. Pertinent negatives include no bladder incontinence, bowel incontinence, chest pain, fever or leg pain. Risk factors include sedentary lifestyle. Treatments tried: PT/HEP 2019 w/no relief, NSAIDsx3 (naproxen, motrin, ibuprofen), heat, Flexeril, Neurontin, Elavil & [place] w/ some relief, OTC Arnica cream w/ mod relief. The treatment provided moderate relief. Neck Pain This is a chronic problem. The problem occurs constantly. The problem has been gradually worsening. The pain is associated with nothing. The pain is present in the left side, midline and right side. The quality of the pain is described as aching (stiffness). The pain is at a severity of 2/10. The pain is mild. The symptoms are aggravated by coughing, position, stress, sneezing, swallowing, twisting and bending. The pain is Same all the time. Stiffness is present All day, in the morning and at night. Associated symptoms include headaches (weekly on average), numbness (bilateral hands and feet) and weakness. Pertinent negatives include no chest pain, fever or leg pain. She has tried acetaminophen, muscle relaxants and home exercises for the symptoms. Wrist Pain The pain is present in the left wrist, right wrist and left hand. This is a chronic problem. The current episode started more than 1 year ago. There has been no history of extremity trauma. The problem occurs constantly. The problem has been unchanged. The quality of the pain is described as aching. The pain is at a severity of 2/10. The pain is moderate. Associated symptoms include numbness (bilateral hands and feet). Pertinent negatives include no fever. Associated symptoms comments: Wrist pain increases while using steering wheel . The symptoms are aggravated by activity. She has tried NSAIDS, heat and acetaminophen for the symptoms. The treatment provided mild relief. The effect of pain on patient's ADLS: Moderate Impairment. Past Medical History: Diagnosis Date Ankylosing spondylitis ([facility]) Asthma as a child Astigmatism contacts Back pain Benign ovarian tumor Carpal tunnel syndrome Cervical disc syndrome Chronic musculoskeletal pain Chronic pain disorder Diabetes mellitus type 2, controlled (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) Syncope Vertigo Past Surgical History: Procedure Laterality Date CARPAL TUNNEL RELEASE Right EXCISION MASS Left 12/26/2018 Performed by Higinio Okeefe MD at [facility] HAND SURGERY Right Thumb joint replacement INJECTION BLOCK EPIDURAL CAUDAL STEROID N/A 02/17/2022 Performed by Sky Hemphill MD at [facility] INJECTION BLOCK EPIDURAL CERVICAL/THORACIC: C71 JOANNE N/A 07/16/2020 Performed by Sky Hemphill MD at [facility] INJECTION BLOCK NERVE MEDIAL BRANCH: left [id number] Left 06/18/2020 Performed by Sky Hemphill MD at [facility] INJECTION BLOCK SACROILIAC JOINT Bilateral 05/18/2023 Performed by Sky Hemphill MD at [facility] INJECTION BLOCK SACROILIAC JOINT Bilateral 01/26/2023 Performed by Sky Hemphill MD at [facility] INJECTION BLOCK SACROILIAC JOINT Right 10/27/2022 Performed by Sky Hemphill MD at [facility] INJECTION BLOCK SACROILIAC JOINT Right 03/17/2022 Performed by Sky Hemphill MD at [facility] INJECTION BLOCK SACROILIAC JOINT Right 08/26/2021 Performed by Sky Hemphill MD at [facility] INJECTION BLOCK SACROILIAC JOINT Right 04/22/2021 Performed by Sky Hemphill MD at [facility] INJECTION BLOCK SACROILIAC JOINT Right 10/15/2020 Performed by Sky Hemphill MD at [facility] INJECTION BLOCK SACROILIAC JOINT: Right 06/16/2022 Performed by Sky Hemphill MD at [facility] INJECTION BURSA INTERMEDIATE Left Wrist Left 07/13/2023 Performed by Sky Hemphill MD at [facility] INJECTION BURSA INTERMEDIATE Left wrist Left 04/06/2023 Performed by Sky Hemphill MD at [facility] INJECTION BURSA LARGE JOINT: left CMC Left 09/22/2022 Performed by Sky Hemphill MD at [facility] BURSA LARGE JOINT: right shoulder Right 02/16/2023 Performed by Sky Hemphill MD at [facility] INJECTION BURSA SMALL JOINT: wrist injection Left 10/07/2018 Performed by Sky Hemphill MD at [facility] CAUDAL EPIDURAL WITH CATHETER, STEROID N/A 2018 Performed by Sky Hemphill MD at [facility] LARGE JOINT BURSA: left ankle Left 10/22/2017 Performed by Sky Hemphill MD at [facility] INJECTION MEDIAL BRANCH NERVE BLOCK: left [id number] Left 11/18/2018 Performed by Sky Hem[facility]ill [facility] [facility] INJECTION SACROILIAC NERVE Bilateral 04/21/2019 Performed by Sky Hemphill MD at [facility] INJECTION SACROILIAC NERVE Left 11/01/2018 Performed by Sky Hemphill MD at [facility] JOINT REPLACEMENT Bilateral RADIO FREQUENCY ABLATION: left L34 45 [id number] Left 12/27/2018 Performed by Sky Hemphill MD at [facility] RADIO FREQUENCY ABLATION: left L34 [id number] Left 10/31/2019 Performed by Sky Hemphill MD at [facility] RADIO FREQUENCY ABLATION: right L34 45 51 Right 10/17/2019 Performed by Sky Hemphill MD at [facility] RADIO FREQUENCY ABLATION: right SI Right 05/16/2019 Performed by Sky Hemphill MD at [facility] RADIO FREQUENCY ABLATION: right SI rfa Right 01/09/2020 Performed by Sky Hemphill MD at [facility] RADIOFREQUENCY ABLATION SPINAL: left L 4/5 10/02 Left 08/04/2022 Performed by Sky Hemphill MD at [facility] RADIOFREQUENCY ABLATION SPINAL: left L 4/5 5/1 Left 03/04/2021 Performed by Sky Hemphill MD at [facility] RADIOFREQUENCY ABLATION SPINAL: right L 4/5 5/1 Right 07/21/2022 Performed by Sky Hemphill MD at [facility] RADIOFREQUENCY ABLATION SPINAL: right L 4/5 5/1 Right 05/23/2021 Performed by Sky Hemphill MD at [facility] RADIOFREQUENCY ABLATION SPINAL: right L34 45 51 Right 05/18/2017 Performed by Sky Hemphill MD at [facility] RADIOFREQUENCY ABLATION SPINAL: right SI Right 11/02/2017 Performed by Sky Hemphill MD at [facility] RADIOFREQUENCY ABLATION SPINAL: Right SI Right 03/05/2017 Performed by Sky Hemphill MD at [facility] RELEASE CARPAL TUNNEL Left 12/26/2018 Performed by Higinio Okeefe MD at [facility] REPAIR TENDON FINGER, 5th finger muscle repair Left 11/22/2020 Performed by Rhaat Hirsch MD at [facility] TUBAL LIGATION Allergies Allergen Reactions Cinnamon Analogues Swelling Throat swells Coconut Swelling Throat swells Sulfa (Sulfonamide Antibiotics) Anaphylaxis ivp dye ok per pt noted for pain clinic House Dust Other reaction(s): Other: See Comments itching eyes, scratchy throat Oxycodone-Acetaminophen Other reaction(s): nightmares Darvocet A500 [Propoxyphene N-Acetaminophen] Other (See Comments) Nightmares Lactase GI Disturbance Shellfish Containing Products Abdominal Pain Ok for ivp dye per pt Noted for pain clinic Tizanidine (Bulk) Abdominal Pain Tree Nuts Abdominal Pain Family History Problem Relation Age of Onset Cancer Mother Stroke Father Social History Socioeconomic History Marital status: Single Spouse name: Not on file Number of children: Not on file Years of education: Not on file Highest education level: Not on file Occupational History Not on file Tobacco Use Smoking status: Never Smokeless tobacco: Never Vaping Use Vaping Use: Never used Substance and Sexual Activity Alcohol use: No Alcohol/week: 0.0 standard drinks of alcohol Comment: stopped 6-7 years ago Drug use: No Sexual activity: Defer Partners: Male Other Topics Concern Not on file Social History Narrative Not on file Social Determinants of Health Financial Resource Strain: Not on file Food Insecurity: No Food Insecurity (08/02/2023) Hunger Screening Food Insecurity - Worry: Never True Food Insecurity - Inability: Never True Transportation Needs: Not on file Physical Activity: Not on file Stress: Not on file Social Connections: Not on file Interpersonal Safety: Not on file Housing Instability: Not on file Review of Systems Constitutional: Negative. Negative for chills, fatigue and fever. HENT: Negative. Eyes: Negative. Respiratory: Negative. Negative for cough and wheezing. Cardiovascular: Negative. Negative for chest pain. Gastrointestinal: Negative. Negative for bowel incontinence. Endocrine: Negative. Genitourinary: Negative. Negative for bladder incontinence. Musculoskeletal: Positive for back pain and neck pain. Skin: Pt has a large red/warm to touch inflammed mass on her left medial huggins. States its a rug burn from falling 2 weeks ago. Assessed and informed her that it does not appear to be a rug burn but an infection and she needs to seek medical treatment. Allergic/Immunologic: Negative. Neurological: Positive for weakness, numbness (bilateral hands and feet) and headaches (weekly on average). Vital Signs: BP 116/77 (BP Site: Left Arm, BP Postition: Sitting) Pulse 96 Resp 20 Physical Exam: GENERAL - Healthy patient that appears stated age. HEENT - Normocephalic / Atraumatic, Extraoccular movements intact, trachea midline, thyroid within normal limits. CV - pulse regular, Warm extremities with appropriate color of nailbeds. RESP - No obvious wheezing, No Shortness of Breath, No overexertion response to exam maneuvers. COORDINATION - remains intact. PSYCH - Alert and Oriented x4, Attentive and appropriate, constitutionally normal, displays normal mood and affect per situation, answered questions appropriately during examination, demonstrated appropriate attention during discussion, demonstrated appropriate cognitive reasoning and understanding of the medical condition by asking appropriate questions regarding the diagnosis and risks/benefits/alternatives of treatment modalities. No obvious deficits in memory, reasoning, or intellect. Lumbar: SKIN - No rashes or bruising in the area of the patient s pain. LYMPH NODES - demonstrate no obvious enlargement. EXTREMITIES - Lower extremities are warm, with minimal edema and palpable pulses. Tenderness to palpation noted in the lumbar spine and paraspinal musculature. Pain is elicited with flexion, extension, and lateral rotation of the lumbar spine. Range of motion is diminished with these motions due to pain. Facet palpation is noted to be painful and facet loading maneuvers elicit pain that is concordant with the patient s normal pain complaints. Some muscle spasm is noted in the overlying musculature. STRENGTH - noted to be 5 out of 5 all muscle groups bilateral lower extremities including muscles involving hip flexion and abduction, knee flexion and extension, as well as foot dorsiflexion and plantarflexion. No notable atrophy, fasciculations or spasm. SENSORY - No notable sensory deficits in the bilateral lower extremities to touch or pinprick in all dermatomal distributions. Straight Leg Raise is negative bilaterally. Gait is normal. Assessment/Treatment Plan: Rhona was seen today for extremity pain and back pain. Diagnoses and all orders for this visit: Encounter for long-term opiate analgesic use Lumbosacral spondylosis without myelopathy - HYDROcodone-acetaminophen (NORCO) 5-325 mg per tablet; Take 1 tablet by mouth 4 (four) times a day as needed for pain. Max Daily Amount: 4 tablets - Case request operating room: RADIOFREQUENCY ABLATION SPINAL: left L45 51 - Case request operating room: RADIOFREQUENCY ABLATION SPINAL: right L45 51 Refill [place] 5/325 mg QID PRN and continue Gabapentin 300 mg 2 tabs BID Left then Right L4/5, 5/1 Facet Radiofrequency Ablation - under fluoroscopy It is hopeful that the described procedure will provide symptomatic pain relief. It is felt to be medically necessary noting that the patient has tried and failed more conservative modalities of therapy and this is the next most appropriate step. The procedure was described in detail to the patient as well as the potential benefits of pain reduction alongside risks of the procedure and alternatives. Risks were described as including, but not limited to bleeding, infection, nerve damage, spinal cord injury, paralysis, stroke, dural puncture headache, and medication reaction. The patient expressed understanding regarding the risks and benefits and wishes to proceed. The patient has undergone diagnostic injections targeting the above mentioned facet joints. There was significant improvement in the patient s pain and functionality for the duration of the local anesthetic (approximately 2 hours) with return of the original symptoms after that time. For this reason, it is felt that the patient is a good candidate to undergo thermal Radio Frequency Lesioning of the Medial Branch Nerves at 80 degrees celsius for 90 seconds. This will effectively denervate the arthritic facet joints previously targeted with the diagnostic injection. It is noted that the procedure often requires 3-4 weeks to provide benefit, but the benefit usually lasts for approximately 1 year and can then be repeated if necessary. Patients undergoing this procedure often have mild post-procedural pain for 3-4 days which is generally relieved with application of heat and over the counter pain relievers. Follow up 4 weeks after procedure The medications I have prescribed have been reviewed for medication interactions/contraindications and/or for upcoming procedures: continue current medication regimen without any changes. DISCUSSION: Treatment options discussed with patient and all questions answered to patient's satisfaction. Discussed the rules and regulations surrounding prescription of opioids and compliance at length. Failure to follow the rules and regulation will result in tapering and discontinuation of medications if applicable. The patient has been instructed as to the type of medication prescribed along with directions for use. Potential side effects have been discussed, along with risks and benefits of taking this medication. (S)he was instructed as to what to do if (s)he experiences side effects, including when to discontinue the medication. (S)he was advised to call this office in this event. Also discussed at length safety and security of RX and medications. Due to the high risk nature of this patient's pain medication regimen, frequent office visit refill appointments (every 1-3 months) are medically necessary to monitor for an addiction disorder. Prescribed medication that requires intensive monitoring for toxicity: [place] and was refilled at today's office visit. OARRS and most recent UDS were reviewed, discussed and appropriate for medications prescribed. [place] pill count completed at today's office visit. Dose: 5/325 mg QID Quantity Dispensed 120 Quantity Remaining 26 Fill date on prescription bottle 07/07/2023 appropriate Patient educated to bring medication to every office visit. It appears that the patient's previous pain is under adequate control with the previous procedure. At this point, we will continue to monitor these symptoms and turn our immediate attention to the more painful complaint that was discussed today. It does appear that is it the recurrent low back primary pain complaint and the patient would likely benefit from a repeat Lumbar RFA procedure as treatment for this complaint as well. It is noted that the patient did have good response from the previously performed procedure. It is felt that the patient would benefit from an additional procedure of the same nature in that the same symptoms have returned. It is hopeful that this additional injection will provide additional benefit and duration when combined with the previous injection. The spine model was demonstrated and MRI was reviewed and used to explain the condition. Chronic conditions not treated during this visit that affected my overall medical decision making: Comorbidity- Diabetes The patient has a history of diabetes mellitus currently managed with medications. This will need to be considered prior to any procedure that would require the injection of steroid in that the patient may experience a transient increase in glucose as a result. Additional consideration will need to be given to timing the procedure early in the morning in that the patient will need to be fasting prior to the administration of anesthesia. Every effort will be made to perform the procedure as a 1st case due to this condition. And the patient will be instructed to hold their diabetic medications on that morning. If necessary, a blood glucose test can also be performed that morning. The risks/ benefits/ and alternatives will be weighed and explained to the patient prior to any procedure. OARRS: Reviewed. Scribe Statement: Scribed for and in the presence of AMEYA KINCAID by Rani Dominguez CNA. Provider Statement: I, AMEYA KINCAID, personally performed the services described in the documentation, as scribed by Rani Dominguez CNA in my presence, and it is both accurate and complete. Rani Dominguez CNA 08/02/23 0951 Rani Dominguez CNA 08/02/23 0956 Rani Dominguez CNA 08/02/23 1019 AMEYA Kincaid 08/02/23 1147 documented in this encounter [facility] 08-02-2023 Instructions Rani Dominguez CNA - 08/02/2023 8:45 AM EST Radiofrequency Ablation (RFA) Radiofrequency ablation (or RFA) is a procedure used to reduce pain. An electrical current produced by a radio wave is used to heat up a small area of nerve tissue, thereby decreasing pain signals from that specific area. Which Conditions Are Treated With Radiofrequency Ablation? RFA can be used to help patients with chronic (long-lasting) back and neck pain and pain related to the degeneration of joints from arthritis. How Long Does Pain Relief from Radiofrequency Ablation Last? The degree of pain relief varies, depending on the cause and location of the pain. Pain relief from RFA can last from six to 12 months and in some cases, relief can last for years. More than 70% of patients treated with RFA experience pain relief. Is Radiofrequency Ablation Safe? RFA has proven to be a safe and effective way to treat some forms of pain. It also is generally well-tolerated, with very few associated complications. There is a slight risk of infection and bleeding at the insertion site. Your doctor can advise you about your particular risk. Can I Resume My Normal Activities After Radiofrequency Ablation? You will have a few restrictions immediately following radiofrequency ablation: Do not drive or operate machinery for at least 24 hours after the procedure. You may resume your normal diet and prescribed medications (including blood thinners) when you get home. Do not engage in any strenuous activity for the first 24 hours after the procedure. You may remove any bandages in the evening before going to bed. You may experience the following effects after RFA: Leg numbness: If you have any leg numbness, walk only with assistance. This should only last a few hours and is due to the local anesthesia given during the procedure. Mild back discomfort: This may occur when the local anesthetic wears off and usually lasts two or three days. Apply heat to the area the day of the procedure and the day after the procedure. You may also use your usual pain medications and NSAID medications such as ibuprofen, naproxen, Aleve, Motrin, etc. if you are able. Expectations: Results will be gradual. It may take 3-4 weeks for full relief. If you feel severe pain at the injection site with swelling and redness, increased leg weakness, a fever of 101 or higher, headache (or worsening headache), changes in vision or urinary retention: Please call the office at , or have someone take you to the nearest emergency room. Tell the emergency room staff that you just had RFA. A doctor must evaluate you for bleeding and injection complications. If you lose control over bowel, bladder, or legs: Go to the nearest emergency room. If you are diabetic, the steroids used in this procedure can increase your blood sugar. If your blood sugar is 250mg/dL or higher, contact your primary care physician, or the doctor who manages your diabetes, to discuss how to get it back to normal. documented in this encounter [facility] 07-26-2023 Miscellaneous Notes BS faxes approval of cyclobenzaprine. Approval 06/04/2023-07/24/2024. documented in this encounter [facility] 07-26-2023 Miscellaneous Notes Pt read [employer] message. Notify patient medication sent as requested Thank you. Patient's request for medication is as follows: Requested Prescriptions Signed Prescriptions Disp Refills Etanercept (ENBREL) 50 mg/mL (1 mL) injection 24 Each 3 Sig: INJECT 1 SYRINGE UNDER THE SKIN 2 TIMES A WEEK. Hold if ill or on antibiotics. No LIVE vaccines. Prescription(s) as above. Please process accordingly. Eugenio Ellis MD Please send in Enbrel to pharmacy on dial and d/c [place] Patient's request for medication is as follows: Requested Prescriptions Pending Prescriptions Disp Refills Etanercept (ENBREL) 50 mg/mL (1 mL) injection 24 Each 3 Sig: INJECT 1 SYRINGE UNDER THE SKIN 2 TIMES A WEEK. Hold if ill or on antibiotics. No LIVE vaccines. Please approve the above prescription(s) to electronically send to pharmacy. Jodi Gonzalez MA Please advise regarding pt's request for Flexeril -- PA requested through [employer] awaiting questionnaire documented in this encounter [facility] 07-10-2023 Miscellaneous Notes Pt notified via [employer], lab orders printed and placed in the mail. Called and left message for patient to call back regarding message below from . Please Call patient if MyChart note not read to review results/released to My Chart if tests completed at [facility]: normal labs and no inflammation. Continue same vitamin D intake with food. Recheck nonfasting labs in 3months.The orders have been placed. Please send orders cmp, cbc, esr, crp, vitamin D, quantiferon tb. Orders in epic. Please fax results to rheum office. Thank you! Happy to further review and discuss at follow up visit. Continue rest of treatment plan per instructions at last office visit. Thank you. [facility] 07/03/23 normal cmp, potassium 4.1, creat 0.81, glucose 71, calcium 9, alkaline phosphatase 74, ast 18, alt 16, crp 0.2 (NL0-0.744mg/dL), vitamin D 54.4, cbc, wbc 5.6, hgb 11.8, plts 272, esr 30 (normal 0-30mm/hr) 05/07/23 last dose cimzia 06/27/23 restart enbrel Received labs from [email or web address] [employer] Results placed on your desk for review. documented in this encounter [facility] 07-03-2023 History of Present illness Narrative [facility] [address] [place] [address] Patient: Rhona Garcia Sex: female : 1960 Age: 63 y.o. PCP: KATIE GARCIA, DO 07/03/2023 Rhona Garcia is here for a(n) follow up. Chief Complaint Patient presents with Back Pain HPI: PT/HEP 2018 Back: 06/21/18 oswaldo SI joint injection with no relief on left 75% temporary relief on right. Right SI RFA 01/09/2020 with no relief. 10/15/20 Right SI RFA with 75% relief 03/04/21 RFA Left L 4/5, 5/ with 50% relief currently. 12/27/18 Caudal not helpful. left lumbar RFA w/75% relief Right SI joint injection on 04/22/2021 with 80% relief then went down to 50% relief. 05/23/21 Right RFA L 4/5, 5/ with 50% relief. 10/27/2022 Right Sacroiliac Injection with 75% relief continuing 02/17/22 Caudal with no relief reported. 08/26/2021 Right SI injection w/ 50% Right SI joint injection 03/17/2022 50% relief. right SI joint injection on 06/16/2022 with at least 50% relief. 07/21/22 Rt L 4/5 5/ RFA w/20% relief 08/04/22 Lt L 4/5 10/02 RFA w/40% relief 01/26/23 Oswaldo SI Inj w/50% relief continued 07/19/2022 Bilateral Sacroiliac Joint injection with 85% relief x 2 hours, and 50% relief continuing today Bilateral SI joint injection 05/18/23 with 85% relief for 2 hours and 50% continued relief. Thumb: 09/22/22 Left CMC joint injection with 90% relief 04/06/2023 left wrist injection with 50% relief that continues Neck: 06/08/19 Left C5/6,6/7, 7/ no relief. JOANNE C 12/02 on 07/16/20 w/75% relief. Back Pain This is a chronic problem. The current episode started more than 1 year ago (20+ years). The problem occurs constantly. The problem has been gradually worsening since onset. The pain is present in the sacro-iliac, lumbar spine and gluteal. The quality of the pain is described as aching and stabbing. The pain does not radiate. The pain is at a severity of 6/10 (left side more painful than right). The pain is moderate. The pain is Worse during the day. Exacerbated by: prolonged standing, walking and sitting ; lying down, stairs, bending, twisting, pushing/pulliing, cough/sneeze, transitioing, cold/heat Stiffness is present All day (varies with activity). Associated symptoms include headaches (weekly on average), numbness (bilateral hands and feet), tingling (bilateral hands and feet) and weakness. Pertinent negatives include no bladder incontinence, bowel incontinence, chest pain, fever or leg pain. Risk factors include sedentary lifestyle. Treatments tried: PT/HEP 2019 w/no relief, NSAIDsx3 (naproxen, motrin, ibuprofen), heat, Flexeril, Neurontin, Elavil & [place] w/ some relief, OTC Arnica cream w/ mod relief. The treatment provided moderate relief. Neck Pain The problem occurs constantly. The problem has been gradually worsening. The pain is associated with nothing. The pain is present in the left side, midline and right side. The quality of the pain is described as stabbing, shooting and aching (stiffness). The pain is at a severity of 8/10. The pain is moderate. The symptoms are aggravated by coughing, position, stress, sneezing, swallowing, twisting and bending. The pain is Same all the time. Stiffness is present All day, in the morning and at night. Associated symptoms include headaches (weekly on average), numbness (bilateral hands and feet), tingling (bilateral hands and feet) and weakness. Pertinent negatives include no chest pain, fever or leg pain. She has tried acetaminophen, muscle relaxants and home exercises for the symptoms. Wrist Pain The pain is present in the left wrist, right wrist and left hand. This is a chronic problem. The current episode started more than 1 year ago. There has been no history of extremity trauma. The problem occurs constantly. The problem has been unchanged. The quality of the pain is described as aching. Pain scale: bilateral wrists 6/10, left palm 8/10. The pain is moderate. Associated symptoms include a limited range of motion, numbness (bilateral hands and feet) and tingling (bilateral hands and feet). Pertinent negatives include no fever. Associated symptoms comments: Wrist pain increases while using steering wheel . The symptoms are aggravated by activity. She has tried NSAIDS, heat and acetaminophen for the symptoms. The treatment provided mild relief. Her past medical history is significant for diabetes. The effect of pain on patient's ADLS: Moderate Impairment. 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 Fall after dizzy spell GERD (gastroesophageal reflux disease) Gout Heart palpitations Hypertension Joint pain Kidney failure Low back pain Lumbar disc disease Neck pain Neuropathy Osteoarthritis Raynaud's disease Scleroderma ([facility]) Syncope Vertigo Past Surgical History: Procedure Laterality Date CARPAL TUNNEL RELEASE Right EXCISION MASS Left 12/26/2018 Performed by Higinio Okeefe MD at [facility] Right Thumb joint replacement INJECTION BLOCK EPIDURAL CAUDAL STEROID N/A 02/17/2022 Performed by Sky Hemphill MD at [facility] INJECTION BLOCK EPIDURAL CERVICAL/THORACIC: C71 JOANNE N/A 07/16/2020 Performed by Sky Hemphill MD at [facility] INJECTION BLOCK NERVE MEDIAL BRANCH: left C56 67 71mbb Left 06/18/2020 Performed by Sky Hemphill MD at [facility] INJECTION BLOCK SACROILIAC JOINT Bilateral 05/18/2023 Performed by Sky Hemphill MD at [facility] BLOCK SACROILIAC JOINT Bilateral 01/26/2023 Performed by Sky Hemphill MD at [facility] SACROILIAC JOINT Right 10/27/2022 Performed by Sky Hemphill MD at [facility] BLOCK SACROILIAC JOINT Right 03/17/2022 Performed by Sky Hemphill MD at [facility] BLOCK SACROILIAC JOINT Right 08/26/2021 Performed by Sky Hemphill MD at [facility] BLOCK SACROILIAC JOINT Right 04/22/2021 Performed by Sky Hemphill MD at [facility] BLOCK SACROILIAC JOINT Right 10/15/2020 Performed by Sky Hemphill MD at [facility] BLOCK SACROILIAC JOINT: Right 06/16/2022 Performed by Sky Hemphill MD at [facility] BURSA INTERMEDIATE Left wrist Left 04/06/2023 Performed by Sky Hemphill MD at [facility] BURSA LARGE JOINT: left CMC Left 09/22/2022 Performed by Sky Hemphill MD at [facility] IN[facility] BURSA LARGE JOINT: right shoulder Right 02/16/2023 Performed by Sky Hemphill MD at [facility] INJECTION BURSA SMALL JOINT: wrist injection Left 10/07/2018 Performed by Sky Hemphill MD at [facility] INJECTION CAUDAL EPIDURAL WITH CATHETER, STEROID N/A 2018 Performed by Sky Hemphill MD at [facility] INJECTION LARGE JOINT BURSA: left ankle Left 10/22/2017 Performed by Sky Hemphill MD at [facility] INJECTION MEDIAL BRANCH NERVE BLOCK: left L34 45 51 Left 11/18/2018 Performed by Sky Hemphill MD at [facility] INJECTION SACROILIAC NERVE Bilateral 04/21/2019 Performed by Sky Hemphill MD at [facility] INJECTION SACROILIAC NERVE Left 11/01/2018 Performed by Sky Hemphill MD at [facility] JOINT REPLACEMENT Bilateral RADIO FREQUENCY ABLATION: left L34 45 [id number] Left 12/27/2018 Performed by Sky Hemphill MD at [facility] RADIO FREQUENCY ABLATION: left L34 [id number] Left 10/31/2019 Performed by Sky Hemphill MD at [facility] RADIO FREQUENCY ABLATION: right L34 45 51 Right 10/17/2019 Performed by Sky Hemphill MD at [facility] RADIO FREQUENCY ABLATION: right SI Right 05/16/2019 Performed by Sky Hemphill MD at [facility] RADIO FREQUENCY ABLATION: right SI rfa Right 01/09/2020 Performed by Sky Hemphill MD at [facility] RADIOFREQUENCY ABLATION SPINAL: left L 4/5 5/1 Left 08/04/2022 Performed by Sky Hemphill MD at [facility] RADIOFREQUENCY ABLATION SPINAL: left L 4/5 5/1 Left 03/04/2021 Performed by Sky Hemphill MD at [facility] RADIOFREQUENCY ABLATION SPINAL: right L 4/5 5/1 Right 07/21/2022 Performed by Sky Hemphill MD at [facility] RADIOFREQUENCY ABLATION SPINAL: right L 4/5 5/1 Right 05/23/2021 Performed by Sky Hemphill MD at [facility] RADIOFREQUENCY ABLATION SPINAL: right L34 45 51 Right 05/18/2017 Performed by Sky Hemphill MD at [facility] RADIOFREQUENCY ABLATION SPINAL: right SI Right 11/02/2017 Performed by Sky Hemphill MD at [facility] RADIOFREQUENCY ABLATION SPINAL: Right SI Right 03/05/2017 Performed by Sky Hemphill MD at [facility] RELEASE CARPAL TUNNEL Left 12/26/2018 Performed by Higinio Okeefe MD at [facility] REPAIR TENDON FINGER, 5th finger muscle repair Left 11/22/2020 Performed by Rahat Hirsch MD at [facility] TUBAL LIGATION Allergies Allergen Reactions Cinnamon Analogues Swelling Throat swells Coconut Swelling Throat swells Sulfa (Sulfonamide Antibiotics) Anaphylaxis ivp dye ok per pt noted for pain clinic House Dust Other reaction(s): Other: See Comments itching eyes, scratchy throat Oxycodone-Acetaminophen Other reaction(s): nightmares Darvocet A500 [Propoxyphene N-Acetaminophen] Other (See Comments) Nightmares Lactase GI Disturbance Shellfish Containing Products Abdominal Pain Ok for ivp dye per pt Noted for pain clinic Tizanidine (Bulk) Abdominal Pain Tree Nuts Abdominal Pain Family History Problem Relation Age of Onset Cancer Mother Stroke Father Social History Socioeconomic History Marital status: Single Spouse name: Not on file Number of children: Not on file Years of education: Not on file Highest education level: Not on file Occupational History Not on file Tobacco Use Smoking status: Never Smokeless tobacco: Never Vaping Use Vaping Use: Never used Substance and Sexual Activity Alcohol use: No Alcohol/week: 0.0 standard drinks of alcohol Comment: stopped 6-7 years ago Drug use: No Sexual activity: Defer Partners: Male Other Topics Concern Not on file Social History Narrative Not on file Social Determinants of Health Financial Resource Strain: Not on file Food Insecurity: No Food Insecurity (07/03/2023) Hunger Screening Food Insecurity - Worry: Never True Food Insecurity - Inability: Never True Transportation Needs: Not on file Physical Activity: Not on file Stress: Not on file Social Connections: Not on file Interpersonal Safety: Not on file Housing Instability: Not on file Review of Systems Constitutional: Negative. Negative for chills, fatigue and fever. HENT: Negative. Eyes: Negative. Respiratory: Negative. Negative for cough and wheezing. Cardiovascular: Negative. Negative for chest pain. Gastrointestinal: Negative. Negative for bowel incontinence. Endocrine: Negative. Genitourinary: Negative. Negative for bladder incontinence. Musculoskeletal: Positive for back pain and neck pain. Skin: Pt has a large red/warm to touch inflammed mass on her left medial huggins. States its a rug burn from falling 2 weeks ago. Assessed and informed her that it does not appear to be a rug burn but an infection and she needs to seek medical treatment. Allergic/Immunologic: Negative. Neurological: Positive for tingling (bilateral hands and feet), weakness, numbness (bilateral hands and feet) and headaches (weekly on average). Vital Signs: There were no vitals taken for this visit. Physical Exam: GENERAL - Healthy patient that appears stated age. HEENT - Normocephalic / Atraumatic, Extraoccular movements intact, trachea midline, thyroid within normal limits. CV - pulse regular, Warm extremities with appropriate color of nailbeds. RESP - No obvious wheezing, No Shortness of Breath, No overexertion response to exam maneuvers. COORDINATION - remains intact. PSYCH - Alert and Oriented x4, Attentive and appropriate, constitutionally normal, displays normal mood and affect per situation, answered questions appropriately during examination, demonstrated appropriate attention during discussion, demonstrated appropriate cognitive reasoning and understanding of the medical condition by asking appropriate questions regarding the diagnosis and risks/benefits/alternatives of treatment modalities. No obvious deficits in memory, reasoning, or intellect. Distal Joint Exam - Upper Extremity: SKIN - No rashes or bruising in the area of the patient s pain. EXTREMITIES - Upper extremities are warm, with minimal edema and palpable pulses. Strength is 5/5 all muscle groups of the bilateral upper extremities. There is no obvious atrophy, fasciculations, or spasms. There are no notable sensory deficits in the overlying dermatomal distributions. Examination of the Left wrist reveals tenderness to palpation over the Ulnar and Radial bones distally as well as the carpal bones. Mild swelling is noted without significant erythema. Pain is elicited with flexion and extension of the wrist. Assessment/Treatment Plan: Rhona was seen today for back pain. Diagnoses and all orders for this visit: Localized primary osteoarthritis of left wrist - Case request operating room: INJECTION BURSA LARGE JOINT: left wrist Lumbosacral spondylosis without myelopathy - HYDROcodone-acetaminophen (NORCO) 5-325 mg per tablet; Take 1 tablet by mouth 4 (four) times a day as needed for pain. Max Daily Amount: 4 tablets Encounter for long-term opiate analgesic use - Unlisted Lab Test; Future - Benzodiazepine; Future Refill [place] 5/325 mg QID PRN Urine Drug Screen - To monitor the safety of chronic medication therapy, we will order a Urine Drug Screen. This screen will test for illegal substances as well as prescription medications that we are providing to the patient. As part of our medication policy and contract, the patient has agreed to use only the medications provided by our office in the manner recommended and any deviation of that use can result in discontinuation of the medications from our clinic. Left Wrist Injection - under fluoroscopy with the use of contrast dye (unless contraindicated) It is hopeful that the described procedure will provide symptomatic pain relief. It is felt to be medically necessary noting that the patient has tried and failed more conservative modalities of therapy and this is the next most appropriate step. The procedure was described in detail to the patient as well as the potential benefits of pain reduction alongside risks of the procedure and alternatives. Risks were described as including, but not limited to bleeding, infection, nerve damage, spinal cord injury, paralysis, stroke, dural puncture headache, and medication reaction. The patient expressed understanding regarding the risks and benefits and wishes to proceed. It was explained that wrist injections occasionally require a repeat injection before significant relief is noted, but we will determine after each injection if another one is indicated. Depending on the amount and duration of relief obtained from the injection, additional modalities of therapy including medications and physical therapy may need to be utilized alongside or following the injections. If the injection fails to provide relief for a reasonable duration, we may need to consider other options. Follow up 2 weeks after procedure The medications I have prescribed have been reviewed for medication interactions/contraindications and/or for upcoming procedures: continue current medication regimen without any changes. DISCUSSION: Treatment options discussed with patient and all questions answered to patient's satisfaction. Discussed the rules and regulations surrounding prescription of opioids and compliance at length. Failure to follow the rules and regulation will result in tapering and discontinuation of medications if applicable. The patient has been instructed as to the type of medication prescribed along with directions for use. Potential side effects have been discussed, along with risks and benefits of taking this medication. (S)he was instructed as to what to do if (s)he experiences side effects, including when to discontinue the medication. (S)he was advised to call this office in this event. Also discussed at length safety and security of RX and medications. Due to the high risk nature of this patient's pain medication regimen, frequent office visit refill appointments (every 1-3 months) are medically necessary to monitor for an addiction disorder. Prescribed medication that requires intensive monitoring for toxicity [place] and was refilled at today's office visit. OARRS and most recent UDS were reviewed, discussed and appropriate for medications prescribed. [place] pill count completed at today's office visit. Dose: 5/325 QID Quantity Dispensed 120 Quantity Remaining 25 Fill date on prescription bottle 06/07/2023 appropriate Patient educated to bring medication to every office visit. It is noted that the patient did have good response from the previously performed procedure. It is felt that the patient would benefit from an additional procedure of the same nature in that the same symptoms have returned. It is hopeful that this additional injection will provide additional benefit and duration when combined with the previous injection. The spine model was demonstrated and Xray and MRI was reviewed and used to explain the condition. Chronic conditions not treated during this visit that affected my overall medical decision making: Comorbidity- Diabetes The patient has a history of diabetes mellitus currently managed with medications. This will need to be considered prior to any procedure that would require the injection of steroid in that the patient may experience a transient increase in glucose as a result. Additional consideration will need to be given to timing the procedure early in the morning in that the patient will need to be fasting prior to the administration of anesthesia. Every effort will be made to perform the procedure as a 1st case due to this condition. And the patient will be instructed to hold their diabetic medications on that morning. If necessary, a blood glucose test can also be performed that morning. The risks/ benefits/ and alternatives will be weighed and explained to the patient prior to any procedure. OARRS: Reviewed. Scribe Statement: Scribed for and in the presence of AMEYA KINCAID by Rani Dominguez CNA. Provider Statement: I, AMEYA KINCAID, personally performed the services described in the documentation, as scribed by Rani Dominguez CNA in my presence, and it is both accurate and complete. Rani Dominguez CNA 07/03/23 1154 AMEYA Kincaid 07/03/23 1202 [facility] Instructions Rani Dominguez CNA - 07/03/2023 11:15 AM EST Joint Injections / Other These procedure(s) involve injecting steroid medications into a joint or other area explained by your physician. Steroid medicine decreases pain and inflammation. The injection may also contain an anesthetic (numbing medicine) to decrease pain. It may be done to treat conditions such as arthritis, gout, carpal tunnel syndrome and more. The injections may be given in your hip, knee, ankle, shoulder, elbow, wrist, or ankle. How Long Will This Procedure Last? The extent and duration of pain relief may depend on the amount of inflammation and how many areas are involved. Other coexisting factors may be responsible for your pain. You and your physician will discuss expected results of procedure(s). After Your Injection You may experience soreness and tenderness at the area of treatment. This pain may not occur until later today after the numbing medicine wears off. The steroid can take 3-5 days to work and provide noticeable improvement. Activity You may resume normal activity as your comfort level allows. Medications Resume your routine medications after your procedure. You may resume blood thinners per your regular schedule after the procedure. If you received sedation: If you received sedation for your procedure, you may feel sleepy or not yourself for several hours today. For the next 24 hours avoid activities that requires alertness or coordination. This includes: Driving or operating heavy machinery Using power tools Consuming alcohol Do not make important or complex decisions or sign legal documents in the next 24 hours. Other Instructions: If you feel severe pain at the injection site with swelling and redness, increased leg weakness, a fever of 101 or higher, headache (or worsening headache), changes in vision or urinary retention: Please call the office at , or have someone take you to the nearest emergency room. Tell the emergency room staff that you recently had a spine injection. A doctor must evaluate you for bleeding and injection complications. If you lose control over bowel, bladder, or legs: Go to the nearest emergency room. If you are diabetic, the steroids used in this procedure can increase your blood sugar. If your blood sugar is 250mg/dL or higher, contact your primary care physician, or the doctor who manages your diabetes, to discuss how to get it back to normal. [facility] Evaluation note Encounter Date Diagnosis Assessment Notes Jun, Contact with and (suspected) exposure to covid-19 (ICD-10 - Z20.822) Jun, Acute pneumonia (ICD-10 - J18.9) Advised patient that COVID/influenza A/B/RSV PCR test was negative today in office. Discussed diagnosis with patient in detail. Advised patient that cough may linger for 3 weeks. Will treat today with antibiotic. Reviewed allergies and recent antibiotic use. Advised to take medications as prescribed, reviewed side effects of steroid, take with food and plenty of water, finish entire course. Encouraged supportive care as directed, push fluids and rest, may use Tylenol as needed for fever/discomfor t, cool mist humidifier. May use [place] as needed for cough, do not take any other OTCs while using [place]. Patient to follow up with PCP in 2-3 days. Immediate eval if SOB, difficulty breathing, chest pain, dizziness, or other concerning symptoms. Patient verbalizes understanding and is agreeable to treatment plan [employer] Other [id number] Miscellaneous Notes* Telephone Encounter - Joan Jackson RN - 06/06/2023 12:26 PM EST Patient left message requesting refill for [place]. [place] refill was signed at 05/31/2023 office visit. [email or web address] Telephone encounter Note* Telephone Encounter - Joan Jackson RN - 06/06/2023 12:26 PM EST Patient left message requesting refill for [place]. [place] refill was signed at 05/31/2023 office visit. [email or web address] History of Present illness Narrative* AMEYA Kincaid - 05/31/2023 11:00 AM EST [facility] [address] [place] [place] [address] Patient: Rhona Garcia Sex: female : 1960 Age: 63 y.o. PCP: KATIE GARCIA, DO 05/31/2023 Rhona Garcia is here for a post procedure follow up. Bilateral SI joint injection 05/18/23 with 85% relief for 2 hours and 50% continued relief. Chief Complaint Patient presents with Back Pain Neck Pain HPI: /HEP 2018 Back: 06/21/18 oswaldo SI joint injection with no relief on left 75% temporary relief on right. Right SI RFA 01/09/2020 with no relief. 10/15/20 Right SI RFA with 75% relief 03/04/21 RFA Left L 4/5, 5/ with 50% relief currently. 12/27/18 Caudal not helpful. left lumbar RFA w/75% relief Right SI joint injection on 04/22/2021 with 80% relief then went down to 50% relief. 05/23/21 Right RFA L 4/5, 5/1 with 50% relief. 10/27/2022 Right Sacroiliac Injection with 75% relief continuing 02/17/22 Caudal with no relief reported. 08/26/2021 Right SI injection w/ 50% Right SI joint injection 03/17/2022 50% relief. right SI joint injection on 06/16/2022 with at least 50% relief. 07/21/22 Rt L 4/5 5/1 RFA w/20% relief 08/04/22 Lt L 4/5 5/1 RFA w/40% relief 01/26/23 Oswaldo SI Inj w/50% relief continued 07/19/2022 Bilateral Sacroiliac Joint injection with 85% relief x 2 hours, and 50% relief continuingtoday Bilateral SI joint injection 05/18/23 with 85% relief for 2 hours and 50% continued relief. Thumb: 09/22/22 Left CMC joint injection with 90% relief 04/06/2023 left wrist injection with 50% relief that continues Neck: 06/08/19 Left C5/6,6/7, 7/1 no relief. JOANNE C 12/02 on 07/16/20 w/75% relief. Back Pain This is a chronic problem. The current episode started more than 1 year ago (20+ years). The problem occurs constantly. The problem is unchanged. The pain is present in the sacro-iliac, lumbar spine and gluteal. The quality of the pain is described as aching. The pain radiates to the right thigh and left thigh (bilateral hips down lateral thighs (right side worse)). The pain is at a severity of 4/10 (left side more painful than right). The pain is moderate. The pain is Worse during the day. Exacerbated by: prolonged standing, walking and sitting ; lying down, stairs, bending, twisting, pushing/pulliing, cough/sneeze, transitioing, cold/heat Stiffness is present All day. Associated symptoms i nclude headaches (weekly on average), leg pain (bilateral thighs laterally), numbness (bilateral hands and feet), tingling (bilateral hands and feet) and weakness. Pertinent negatives include no bladder incontinence or bowel incontinence. Risk factors include sedentary lifestyle. Treatments tried: PT/HEP 2019 w/no relief, NSAIDsx3 (naproxen, motrin, ibuprofen), heat, Flexeril, Neurontin, Elavil & [place] w/ some relief, OTC Arnica cream w/ mod relief. The treatment provided moderate relief. Neck Pain The problem occurs constantly. The problem has been gradually worsening. The pain is associated with nothing. The pain is present in the left side, midline and right side. Quality: stiffness/shooting. The pain is at a severity of 6/10. The pain is moderate. The symptoms are aggravated by coughing, position, stress, sneezing, swallowing, twisting and bending. The pain is Same all the time. Stiffness is present All day. Associated symptoms include headaches (weekly on average), leg pain (bilateral thighs laterally), numbness (bilateral hands and feet), tingling (bilateral hands and feet) and weakness. She has tried acetaminophen, muscle relaxants and home exercises for the symptoms. Wrist Pain The pain is present in the left wrist. This is a chronic problem. The current episode started more than 1 year ago. There has been no history of extremity trauma. The problem occurs constantly. The problem has been unchanged. The quality of the pain is described as aching. The pain is at a severityof 4/10. The pain is moderate. Associated symptoms include a limited range of motion, numbness (bilateral hands and feet) and tingling (bilateral hands and feet). Associated symptoms comments: Wrist pain increases while using steering wheel . The symptoms are aggravated by activity. She has tried NSAIDS, heat and acetaminophen for the symptoms. The treatment provided mild relief. Her past medicalhistory is significant for diabetes. The effect of pain on patient's ADLS: Moderate Impairment. Past Medical History: Diagnosis Date Ankylosing spondylitis ([facility]) Asthma as a child Astigmatism contacts Back pain Benign ovarian tumor Carpal tunnel syndrome Cervical disc syndrome Chronic musculoskeletal pain Chronic pain disorder Diabetes mellitus type 2, controlled (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) Syncope Vertigo Past Surgical History: Procedure Laterality Date CARPAL TUNNEL RELEASE Right EXCISION MASS Left 12/26/2018 Performed by Higinio Okeefe MD at [facility] Right Thumb joint replacement INJECTION BLOCK EPIDURAL CAUDAL STEROID N/A 02/17/2022 Performed by Sky Hemphill MD at [facility] BLOCK EPIDURAL CERVICAL/THORACIC: C71 JOANNE N/A 07/16/2020 Performed by Sky Hemphill MD at [facility] BLOCK NERVE MEDIAL BRANCH: left [id number] [id number] Left 06/18/2020 Performed by Sky Hemphill MD at [facility] BLOCK SACROILIAC JOINT Bilateral 05/18/2023 Performed by Sky Hemphill MD at [facility] BLOCK SACROILIAC JOINT Bilateral 01/26/2023 Performed by Sky Hemphill MD at [facility] BLOCK SACROILIAC JOINT Right 10/27/2022 Performed by Sky Hemphill MD at [facility] BLOCK SACROILIAC JOINT Right 03/17/2022 Performed by Sky Hemphill MD at [facility] BLOCK SACROILIAC JOINT Right 08/26/2021 Performed by Sky Hemphill MD at [facility] BLOCK SACROILIAC JOINT Right 04/22/2021 Performed by Sky Hemphill MD at [facility] BLOCK SACROILIAC JOINT Right 10/15/2020 Performed by Sky Hemphill MD at [facility] INJECTION BLOCK SACROILIAC JOINT: Right 06/16/2022 Performed by Sky Hemphill MD at [facility] INJECTION BURSA INTERMEDIATE Left wrist Left 04/06/2023 Performed by Sky Hemphill MD at [facility] INJECTION BURSA LARGE JOINT: left CMC Left 09/22/2022 Performed by Sky Hemphill MD at [facility] INJECTION BURSA LARGE JOINT: right shoulder Right 02/16/2023 Performed by Sky Hemphill MD at [facility] BURSA SMALL JOINT: wrist injection Left 10/07/2018 Performed by Sky Hemphill MD at [facility] CAUDAL EPIDURAL WITH CATHETER, STEROID N/A 2018 Performed by Sky Hemphill MD at [facility] LARGE JOINT BURSA: left ankle Left 10/22/2017 Performed by Syk Hemphill MD at [facility] INJECTION MEDIAL BRANCH NERVE BLOCK: left L34 45 [id number] Left 11/18/2018 Performed by Sky Hemphill MD at [facility] INJECTION SACROILIAC NERVE Bilateral 04/21/2019 Performed by Sky Hemphill MD at [facility] INJECTION SACROILIAC NERVE Left 11/01/2018 Performed by Sky Hemphill MD at [facility] JOINT REPLACEMENT Bilateral RADIO FREQUENCY ABLATION: left L34 45 [id number] Left 12/27/2018 Performed by Sky Hemphill MD at [facility] RADIO FREQUENCY ABLATION: left L34 [id number] Left 10/31/2019 Performed by Sky Hemphill MD at [facility] RADIO FREQUENCY ABLATION: right L34 45 51 Right 10/17/2019 Performed by Sky Hemphill MD at [facility] RADIO FREQUENCY ABLATION: right SI Right 05/16/2019 Performed by Sky Hemphill MD at [facility] RADIO FREQUENCY ABLATION: right SI rfa Right 01/09/2020 Performed by Sky Hemphill MD at [facility] RADIOFREQUENCY ABLATION SPINAL: left L 4/5 5/ Left 08/04/2022 Performed by Sky Hemphill MD at [facility] RADIOFREQUENCY ABLATION SPINAL: left L 4/5 5/1 Left 03/04/2021 Performed by Sky Hemphill MD at [facility] RADIOFREQUENCY ABLATION SPINAL: right L 4/5 5/1 Right 07/21/2022 Performed by Sky Hemphill MD at [facility] RADIOFREQUENCY ABLATION SPINAL: right L 4/5 5/1 Right 05/23/2021 Performed by Sky Hemphill MD at [facility] RADIOFREQUENCY ABLATION SPINAL: right L34 45 51 Right 05/18/2017 Performed by Sky Hemphill MD at [facility] RADIOFREQUENCY ABLATION SPINAL: right SI Right 11/02/2017 Performed by Sky Hemphill MD at [facility] RADIOFREQUENCY ABLATION SPINAL: Right SI Right 03/05/2017 Performed by Sky Hemphill MD at [facility] RELEASE CARPAL TUNNEL Left 12/26/2018 Performed by Higinio Okeefe MD at [facility] REPAIR TENDON FINGER, 5th finger muscle repair Left 11/22/2020 Performed by Rahat Hirsch MD at [facility] TUBAL LIGATION Allergies Allergen Reactions Cinnamon Analogues Swelling Throat swells Coconut Swelling Throat swells Sulfa (Sulfonamide Antibiotics) Anaphylaxis ivp dye ok per pt noted for pain clinic House Dust Other reaction(s): Other: See Comments itching eyes, scratchy throat Oxycodone-Acetaminophen Other reaction(s): nightmares Darvocet A500 [Propoxyphene N-Acetaminophen] Other (See Comments) Nightmares Lactase GI Disturbance Shellfish Containing Products Abdominal Pain Ok for ivp dye per pt Noted for pain clinic Tizanidine (Bulk) Abdominal Pain Tree Nuts Abdominal Pain Family History Problem Relation Age of Onset Cancer Mother Stroke Father Social History Socioeconomic History Marital status: Single Spouse name: Not on file Number of children: Not on file Years of education: Not on file Highest education level: Not on file Occupational History Not on file Tobacco Use Smoking status: Never Smokeless tobacco: Never Vaping Use Vaping Use: Never used Substance and Sexual Activity Alcohol use: No Alcohol/week: 0.0 standard drinks of alcohol Comment: stopped 6-7 years ago Drug use: No Sexual activity: Defer Partners: Male Other Topics Concern Not on file Social History Narrative Not on file Social Determinants of Health Financial Resource Strain: Not on file Food Insecurity: No Food Insecurity (05/31/2023) Hunger Screening Food Insecurity - Worry: Never True Food Insecurity - Inability: Never True Transportation Needs: Not on file Physical Activity: Not on file Stress: Not on file Social Connections: Not on file Interpersonal Safety: Not on file Review of Systems HENT: Negative. Eyes: Negative. Respiratory: Negative. Cardiovascular: Negative. Gastrointestinal: Negative. Negative for bowel incontinence. Genitourinary: Negative. Negative for bladder incontinence. Musculoskeletal: Positive for back pain and neck pain. Skin: Pt has a large red/warm to touch inflammed mass on her left medial huggins. States its a rug burn from falling 2 weeks ago. Assessed and informed her that it does not appear to be a rug burn but an infection and she needs to seek medical treatment. Neurological: Positive for tingling (bilateral hands and feet), weakness, numbness (bilateral handsand feet) and headaches (weekly on average). Vital Signs: BP (!) 156/107 (BP Site: Left Arm, BP Postition: Sitting) Pulse 112 Resp 18 Ht 175.3 cm (5' 9 ) Wt 79.8 kg (176 lb) SpO2 98% BMI 25.99 kg/m Physical Exam: GENERAL - Healthy patient that appears stated age. HEENT - Normocephalic / Atraumatic, Extraoccular movements intact, trachea midline, thyroid within normal limits. CV - pulse regular, Warm extremities with appropriate color of nailbeds. RESP - No obvious wheezing, No Shortness of Breath, No overexertion response to exam maneuvers. COORDINATION - remains intact. PSYCH - Alert and Oriented x4, Attentive and appropriate, constitutionally normal, displays normal mood and affect per situation, answered questions appropriately during examination, demonstrated appropriate attention during discussion, demonstrated appropriate cognitive reasoning and understandingof the medical condition by asking appropriate questions regarding the diagnosis and risks/benefits/alternatives of treatment modalities. No obvious deficits in memory, reasoning, or intellect. Lumbar: SKIN - No rashes or bruising in the area of the patient s pain. LYMPH NODES - demonstrate no obvious enlargement. EXTREMITIES - Lower extremities are warm, with minimal edema and palpable pulses. Tenderness to palpation noted in the lumbar spine and paraspinal musculature. Pain is elicited withflexion, extension, and lateral rotation of the lumbar spine. Range of motion is diminished with these motions due to pain. Facet palpation is noted to be painful and facet loading maneuvers elicit pain that is concordant with the patient s normal pain complaints. Some muscle spasm is noted in the overlying musculature. STRENGTH - noted to be 5 out of 5 all muscle groups bilateral lower extremities including muscles involving hip flexion and abduction, knee flexion and extension, as well as foot dorsiflexion and plantarflexion. No notable atrophy, fasciculations or spasm. SENSORY - No notable sensory deficits in the bilateral lower extremities to touch or pinprick in all dermatomal distributions. Straight Leg Raise is negative bilaterally. Gait is normal. Assessment/Treatment Plan: Rhona was seen today for back pain and neck pain. Diagnoses and all orders for this visit: Encounter for long-term opiate analgesic use Lumbosacral spondylosis without myelopathy - HYDROcodone-acetaminophen (NORCO) 5-325 mg per tablet; Take 1 tablet by mouth 4 (four) times a day as needed for pain. Max Daily Amount: 4 tablets Refill [place] 5/325 mg QID PRN, continue Gabapentin 600 mg BID Monitor Follow up 1 month The medications I have prescribed have been reviewed for medication interactions/contraindications and/or for upcoming procedures: continue current medication regimen without any changes. DISCUSSION: Treatment options discussed with patient and all questions answered to patient's satisfaction. Discussed the rules and regulations surrounding prescription of opioids and compliance at length. Failure to follow the rules and regulation will result in tapering and discontinuation of medications if applicable. The patient has been instructed as to the type of medication prescribed alongwith directions for use. Potential side effects have been discussed, along with risks and benefits of taking this medication. (S)he was instructed as to what to do if (s)he experiences side effects, including when to discontinue the medication. (S)he was advised to call this office in this event. Also discussed at length safety and security of RX and medications. Due to the high risk nature of this patient's pain medication regimen, frequent office visit refill appointments (every 1-3 months) are medically necessary to monitor for an addiction disorder. Prescribed medication that requires intensive monitoring for toxicity [place] and Gabapentin. OARRS and most recent UDS were reviewed, discussed and appropriate for medications prescribed. [place] pill count completed at today's office visit. Dose: 5/325 1 tablet by mouth 4x daily as needed Quantity Dispensed 120 Quantity Remaining 35 Fill date on prescription bottle 05/08/2023 appropriate Patient educated to bring medication to every office visit. [place] was refilled at today's office visit. It is noted that the patient did have good response from the previously performed procedure. It is felt that the patient would benefit from an additional procedure of the same nature in that the samesymptoms have returned. It is hopeful that this additional injection will provide additional benefit and duration when combined with the previous injection. The spine model was demonstrated and MRI was reviewed and used to explain the condition. OARRS: Reviewed. Scribe Statement: Scribed for and in the presence of AMEYA KINCAID by Rani Dominguez CNA. Provider Statement: I, AMEYA KINCAID, personally performed the services described in the documentation, as scribed by Rani Dominguez CNA in my presence, and it is both accurate and complete. Rani Dominguez CNA 05/31/23 1156 AMEYA Kincaid 05/31/23 1555 [facility] Telephone encounter Note* Telephone Encounter - Eugenio Ellis MD - 04/02/2023 9:33 PM EDT Please call patient. Thank you for the update. Sorry to hear about your discomfort. Medication refilled. Hope you feel better soon! Warm regards, :) Patient's request for medication is as follows: Requested Prescriptions Signed Prescriptions Disp Refills predniSONE (DELTASONE) 5 mg tablet 21 tablet 1 Sig: Day 1=6tabs with food, Day 2=5tabs, Day 3=4tabs, Day 4=3tabs, Day 5=2tabs, Day 6=1tab, No NSAIDs on med Prescription(s) as above. Please process accordingly. Eugenio Ellis MD [facility]10-30-2023 Miscellaneous Notes* Telephone Encounter - Eugenio Ellis MD - 04/02/2023 9:33 PM EDT Please call patient. Thank you for the update. Sorry to hear about your discomfort. Medication refilled. Hope you feel better soon! Warm regards, :) Patient's request for medication is as follows: Requested Prescriptions Signed Prescriptions Disp Refills predniSONE (DELTASONE) 5 mg tablet 21 tablet 1 Sig: Day 1=6tabs with food, Day 2=5tabs, Day 3=4tabs, Day 4=3tabs, Day 5=2tabs, Day 6=1tab, No NSAIDs on med Prescription(s) as above. Please process accordingly. Eugenio Ellis MD * Telephone Encounter - Homerosahra LidaMONSERRAT - 04/02/2023 7:58 AM EDT Most recent Rheumatology visit: 08/28/2022 (with Eugenio Ellis) Recent Office Visits - This Specialty 08/28/2022 Ankylosing spondylitis of multiple sites in spine (HCC) Rheumatology Eugenio Ellis MD 11/11/2021 Ankylosing spondylitis of multiple sites in spine ([facility]) Rheumatology Eugenio Ellis MD 01/19/2021 Chronic bilateral low back pain with bilateral sciatica Rheumatology Eugenio Ellis MD Upcoming Rheumatology Appointments - Next 365 Days Visit Type Date Time Department [facility] 04/06/2023 2:40 PM [facility] [place] CBC: None on file in the last 6 months Vitamin D: None on file in the last 6 months LFT: None on file in the last 6 months Hepatic Function: Creatinine: None on file in the last 6 months ESR/CRP: None on file in the last 6 months Uric Acid: None on file in the last 6 months Open Standing (Multiple Instance) Lab Orders None Open Future (Single Instance) Lab Orders Expected Expires Ordered COMP METABOLIC PANEL [SQCMP] 02/09/23 11/10/23 11/09/22 Auth. provider: Eugenio Ellis MD Assoc. diagnoses: Elevated LFTs CBC [SQCBC] 02/09/23 11/10/23 11/09/22 Auth. provider: Eugenio Ellis MD Assoc. diagnoses: Anemia of chronic disease SED RATE WESTERGREN [SQWSR] 02/09/23 11/10/23 11/09/22 Auth. provider: Eugenio Ellis MD Assoc. diagnoses: Elevated sed rate, Elevated C-reactive protein (CRP) C-REACTIVE PROTEIN (CRP) [SQCRP] 02/09/23 11/10/23 11/09/22 Auth. provider: Eugenio Ellis MD Assoc. diagnoses: Elevated sed rate, Elevated C-reactive protein (CRP) VITAMIN D 25 HYDROXY [SQVITD] 02/09/23 11/10/23 11/09/22 Auth. provider: Eugenio Ellis MD Assoc. diagnoses: Vitamin D deficiency documented in [facility] Telephone encounter Note * Telephone Encounter - Lida Key LPN - 04/02/2023 7:58 AM EDT Most recent Rheumatology visit: 08/28/2022 (with Eugenio Ellis) Recent Office Visits - This Specialty 08/28/2022 Ankylosing spondylitis of multiple sites in spine (HCC) Rheumatology Eugenio Ellis MD 11/11/2021 Ankylosing spondylitis of multiple sites in spine (HCC) Rheumatology Eugenio Ellis MD 01/19/2021 Chronic bilateral low back pain with bilateral sciatica Rheumatology Eugenio Ellis MD Upcoming Rheumatology Appointments - Next 365 Days Visit Type Date Time Department [facility] 04/06/2023 2:40 PM [facility] [place] CBC: None on file in the last 6 months Vitamin D: None on file in the last 6 months LFT: None on file in the last 6 months Hepatic Function: Creatinine: None on file in the last 6 months ESR/CRP: None on file in the last 6 months Uric Acid: None on file in the last 6 months Open Standing (Multiple Instance) Lab Orders None Open Future (Single Instance) Lab Orders Expected Expires Ordered COMP METABOLIC PANEL [SQCMP] 02/09/23 11/10/23 11/09/22 Auth. provider: Eugenio Ellis MD Assoc. diagnoses: Elevated LFTs CBC [SQCBC] 02/09/23 11/10/23 11/09/22 Auth. provider: Eugenio Ellis MD Assoc. diagnoses: Anemia of chronic disease SED RATE WESTERGREN [SQWSR] 02/09/23 11/10/23 11/09/22 Auth. provider: Eugenio Ellis MD Assoc. diagnoses: Elevated sed rate, Elevated C-reactive protein (CRP) C-REACTIVE PROTEIN (CRP) [SQCRP] 02/09/23 11/10/23 11/09/22 Auth. provider: Eugenio Ellis MD Assoc. diagnoses: Elevated sed rate, Elevated C-reactive protein (CRP) VITAMIN D 25 HYDROXY [SQVITD] 02/09/23 11/10/23 11/09/22 Auth. provider: Eugenio Ellis MD Assoc. diagnoses: Vitamin D deficiency [facility]10-02-2023 Miscellaneous Notes* Telephone Encounter - Beata Menendez RN - 03/05/2023 12:03 PM EDT Pt read [employer] message. * Telephone Encounter - Lisa Palacios RN - 03/05/2023 9:38 AM EDT Left message on machine for pt to call office Please await call back ' Stated message sent to my chart * Telephone Encounter - Jodi Gonzalez MA - 03/02/2023 3:36 PM EDT Left message for patient to call office regarding below. * Telephone Encounter - Eugenio Ellis MD - 03/01/2023 11:57 AM EDT Please Call patient if MyChart note not read to review results/released to My Chart if tests completed at [facility]: Improved/Normal rest of labs and no inflammation. Continue same vitamin D intake with food. Recheck nonfasting labs in 3months.The orders have been placed. (Please send patient lab orders for cmp, cbc, esr, crp, vitamin D) Please fax results to rheum office. Thank you! Happy to further review and discuss at follow up visit. Continue rest of treatment plan per instructions at last office visit. Thank you. [facility] 02/16/23 normal vitamin D 58.2, glucose 85, crp 0.1 (normal 0- 0.744mg/dL), esr 17, wbc 5, hgb 12.1, plts 230, cmp, creat 0.77, calcium 9, [facility] 11/07/22 low hgb 11.6;normal cmp, glucose 130, potassium 4, creat 0.94, calcium 9.2, alkaline phosphatase 5, ast 12, alt 18, vitamin D 53.2, esr 9 (NL0- 30mm/hr), crp 0.1 (NL0-0.744mg/dL), wbc7.9, plts 283; [facility]; 07/06/22 left hand xrays- advanced degenerative joint disease throughout the wrist with appearances most compatible with advanced osteoarthritis associated with with chondrocalcinosis. Osteoarthritis superimposed upon an underlying inflammatory arthropathy is possible given extensive abnormality involving wrist. Milder osteoarthritis within several of the DIP. --- [facility] 08/14/22 high vitamin b12>1500pg/mL);normal cmp, potassium 4.1, creat 0.84, glucose 74,calcium 8.8, alkaline phosphatase 47, ast 13, alt 20, crp<0.1 (0-0.74mg/dL), vitamin D 56.7, wbc6.1, hgb 12.2, plts 252, esr 10 (NL0- 30mm/hr);negative quantiferon tb; [facility] 11/18/21 borderline creat 1.03;NL rest of cmp, potassium 4.3, calcium 9.1, alkaline phosphatase 66, ast 17, alt 17, glucose 90, crp 0.5 (NL0- 0.744mg/dl), vitamin D 64.5, wbc 5.3, hgb 11.8, plts 223, esr 18 (NL0-30mm/hr); * Telephone Encounter - Lida Key LPN - 02/26/2023 11:38 AM EDT Received lab results from [email or web address] Placed on your desk for review. documented in this encounterSelect [facility]23 Miscellaneous Notes* Telephone Encounter - Eugenio Ellis MD - 03/01/2023 11:45 AM EDT Notify patient medication sent as requested Thank you. Patient's request for medication is as follows: Requested Prescriptions Signed Prescriptions Disp Refills certolizumab pegol (CIMZIA) 400 mg/2 mL (200 mg/mL x 2) sub-q syringe kit 2 mL 12 Sig: Inject 2 mL subcutaneously every 4 weeks. Hold if ill or on antibiotics. No LIVE vaccines Authorizing Provider: EUGENIO ELLIS Prescription(s) as above. Please process accordingly. Eugenio Ellis MD * Telephone Encounter - Lida Key LPN - 03/01/2023 10:01 AM EDT [facility] faxes request for maintenance Cimzia. Order pended. Please double check for accuracy. Most recent Rheumatology visit: 08/28/2022 (with Eugenio Ellis) Recent Office Visits - This Specialty 08/28/2022 Ankylosing spondylitis of multiple sites in spine (HCC) Rheumatology Eugenio Ellis MD 11/11/2021 Ankylosing spondylitis of multiple sites in spine (HCC) Rheumatology Eugenio Ellis MD 01/19/2021 Chronic bilateral low back pain with bilateral sciatica Rheumatology Eugenio Ellis MD Upcoming Rheumatology Appointments - Next 365 Days Visit Type Date Time Department [facility] 04/06/2023 2:40 PM [facility] [place] CBC: None on file in the last 6 months Vitamin D: None on file in the last 6 months LFT: None on file in the last 6 months Hepatic Function: Creatinine: None on file in the last 6 months ESR/CRP: None on file in the last 6 months Uric Acid: None on file in the last 6 months Open Standing (Multiple Instance) Lab Orders None Open Future (Single Instance) Lab Orders Expected Expires Ordered COMP METABOLIC PANEL [SQCMP] 02/09/23 11/10/23 11/09/22 Auth. provider: Eugenio Ellis MD Assoc. diagnoses: Elevated LFTs CBC [SQCBC] 02/09/23 11/10/23 11/09/22 Auth. provider: Eugenio Ellis MD Assoc. diagnoses: Anemia of chronic disease SED RATE WESTERGREN [SQWSR] 02/09/23 11/10/23 11/09/22 Auth. provider: Eugenio Ellis MD Assoc. diagnoses: Elevated sed rate, Elevated C-reactive protein (CRP) C-REACTIVE PROTEIN (CRP) [SQCRP] 02/09/23 11/10/23 11/09/22 Auth. provider: Eugenio Ellis MD Assoc. diagnoses: Elevated sed rate, Elevated C-reactive protein (CRP) VITAMIN D 25 HYDROXY [SQVITD] 02/09/23 11/10/23 11/09/22 Auth. provider: Eugenio Ellis MD Assoc. diagnoses: Vitamin D deficiency documented in this encounter[facility] Miscellaneous Notes* Telephone Encounter - Dipak Johnson MA - 02/19/2023 1:03 PM EDT E-Prescribing Status: Receipt confirmed by pharmacy (02/16/2023 10:07 PM EDT) * Telephone Encounter - Eugenio Ellis MD - 02/19/2023 12:47 PM EDT Please call in script into pharmacy since escript failed. Notify patient medication when above completed as requested Thank you. Patient's request for medication is as follows: Requested Prescriptions Pending Prescriptions Disp Refills acyclovir (ZOVIRAX) 400 mg tablet [Pharmacy Med Name: ACYCLOVIR 400 MG TABLET] 60 tablet 0 Sig: take 1 tablet by mouth twice a day Prescription(s) as above. Please process accordingly. Eugenio Ellis MD * Telephone Encounter - Dipak Johnson MA - 02/19/2023 9:27 AM EDT Most recent Rheumatology visit: 08/28/2022 (with Eugenio Ellis) Recent Office Visits - This Specialty 08/28/2022 Ankylosing spondylitis of multiple sites in spine (HCC) Rheumatology Eugenio Ellis MD 11/11/2021 Ankylosing spondylitis of multiple sites in spine (HCC) Rheumatology Eugenio Ellis MD 01/19/2021 Chronic bilateral low back pain with bilateral sciatica Rheumatology Eugenio Ellis MD Upcoming Rheumatology Appointments - Next 365 Days Visit Type Date Time Department [facility] 04/06/2023 2:40 PM [facility] [place] CBC: None on file in the last 6 months Vitamin D: None on file in the last 6 months LFT: None on file in the last 6 months Hepatic Function: Creatinine: None on file in the last 6 months ESR/CRP: None on file in the last 6 months Uric Acid: None on file in the last 6 months Open Standing (Multiple Instance) Lab Orders None Open Future (Single Instance) Lab Orders Expected Expires Ordered COMP METABOLIC PANEL [SQCMP] 02/09/23 11/10/23 11/09/22 Auth. provider: Eugenio Ellis MD Assoc. diagnoses: Elevated LFTs CBC [SQCBC] 02/09/23 11/10/23 11/09/22 Auth. provider: Eugenio Ellis MD Assoc. diagnoses: Anemia of chronic disease SED RATE WESTERGREN [SQWSR] 02/09/23 11/10/2311/09/23 Auth. provider: Eugenio Ellis MD Assoc. diagnoses: Elevated sed rate, Elevated C-reactive protein (CRP) C-REACTIVE PROTEIN (CRP) [SQCRP] 02/09/23 11/10/23 11/09/22 Auth. provider: Eugenio Ellis MD Assoc. diagnoses: Elevated sed rate, Elevated C-reactive protein (CRP) VITAMIN D 25 HYDROXY [SQVITD] 02/09/23 11/10/23 11/09/22 Auth. provider: Eugenio Ellis MD Assoc. diagnoses: Vitamin D deficiency documented in this encounter[facility] Miscellaneous Notes* Telephone Encounter - Lisa Palacios RN - 02/17/2023 9:02 AM EDT Left message on machine for pt to call office Please await call back * Telephone Encounter - Eugenio Ellis MD - 02/16/2023 10:07 PM EDT Notify patient medication sent as requested Thank you. Patient's request for medication is as follows: Requested Prescriptions Pending Prescriptions Disp Refills acyclovir (ZOVIRAX) 400 mg tablet [Pharmacy Med Name: ACYCLOVIR 400 MG TABLET] 60 tablet 0 Sig: take 1 tablet by mouth twice a day Prescription(s) as above. Please process accordingly. Eugenio Ellis MD * Telephone Encounter - Dipak Johnson MA - 02/16/2023 11:17 AM EDT Most recent Rheumatology visit: 08/28/2022 (with Eugenio Ellis) Recent Office Visits - This Specialty 08/28/2022 Ankylosing spondylitis of multiple sites in spine (HCC) Rheumatology Eugenio Ellis MD 11/11/2021 Ankylosing spondylitis of multiple sites in spine (HCC) Rheumatology Eugenio Ellis MD 01/19/2021 Chronic bilateral low back pain with bilateral sciatica Rheumatology Eugenio Ellis MD Upcoming Rheumatology Appointments - Next 365 Days Visit Type Date Time Department [facility] 04/06/2023 2:40 PM [facility] [place] CBC: None on file in the last 6 months Vitamin D: None on file in the last 6 months LFT: None on file in the last 6 months Hepatic Function: Creatinine: None on file in the last 6 months ESR/CRP: None on file in the last 6 months Uric Acid: None on file in the last 6 months Open Standing (Multiple Instance) Lab Orders None Open Future (Single Instance) Lab Orders Expected Expires Ordered COMP METABOLIC PANEL [SQCMP] 02/09/23 11/10/23 11/09/22 Auth. provider: Eugenio Ellis MD Assoc. diagnoses: Elevated LFTs CBC [SQCBC] 02/09/23 11/10/23 11/09/22 Auth. provider: Eugenio Ellis MD Assoc. diagnoses: Anemia of chronic disease SED RATE WESTERGREN [SQWSR] 02/09/23 11/10/23 11/09/22 Auth. provider: Eugenio Ellis MD Assoc. diagnoses: Elevated sed rate, Elevated C-reactive protein (CRP) C-REACTIVE PROTEIN (CRP) [SQCRP] 02/09/23 11/10/23 11/09/22 Auth. provider: Eugenio Ellis MD Assoc. diagnoses: Elevated sed rate, Elevated C-reactive protein (CRP) VITAMIN D 25 HYDROXY [SQVITD] 02/09/23 11/10/23 11/09/22 Auth. provider: Eugenio Ellis MD Assoc. diagnoses: Vitamin D deficiency documented [facility] History of Present illness Narrative* Jose R Starkey - 02/14/2023 3:19 PM EDT [facility] received prescription(s) for Cimzia from Dr. Ellis. Benefits investigation was conducted, indicating that a prior authorization is required by patients plan with [employer]. Encounter will be updated once prior authorization has been submitted by [facility]. Jose R Starkey CPhT [facility], Inflammatory P: [phone] F: [phone] documented in this encounterSelect [facility] [place]09-13-2023 Miscellaneous Notes* Telephone Encounter - Dipak Johnson MA - 02/14/2023 2:57 PM EDT Will await pa approval from [facility]. * Telephone Encounter - Eugenio Ellis MD - 02/14/2023 2:30 PM EDT Please precert cimzia for ankylosing spondylitis Failed humira, enbrel, plaquenil, arava, methotrexate, sulfasalazine Sent script to specialty pharmacy. Please Enroll in patient assistance Please Schedule nurse visit for injection instruction if approved/received May start 1week after last dose of enbrel. Thank you. Patient's request for medication is as follows: Requested Prescriptions Signed Prescriptions Disp Refills certolizumab pegol (CIMZIA) 400 mg/2 mL (200 mg/mL x 2) sub-q syringe kit 12 Each 3 Sig: Sq injection prefilled pen/syringe day 1, week 2, week 4, then every 4weeks thereafter. Hold if on antibiotics or ill. Authorizing Provider: EUGENIO ELLIS Prescription(s) as above. Please process accordingly. Eugenio Ellis MD documented in this encounterSelect [facility] [place]-2023 Miscellaneous Notes* Telephone Encounter - Eugenio Ellis MD - 02/14/2023 2:28 PM EDT Please call patient. Thank you for the update. Will submit for another biologic. When approved, you can schedule when to receive new medication. May start new medication 1week after last enbrel dose. Hope you feel better soon! Dr.Tsai Jalil :) * Telephone Encounter - Eugenio Ellis MD - 02/14/2023 10:29 AM EDT Please call patient. Thank you for the update. Sorry to hear about your discomfort. Ok to increase to medication as reported. Happy to switch to another biologic instead of enbrel if not helping as much. Notify office if interested. Happy to schedule earlier visit if needed to further review and discuss. Hope you feel better soon! Dr.Tsai Jalil :) documented in this encounterSelect [facility] [place]08-22-2023 Miscellaneous Notes* Telephone Encounter - Lida Key LPN - 01/23/2023 8:18 AM EDT MC read by patient. * Telephone Encounter - Eugenio Ellis MD - 01/23/2023 6:31 AM EDT Please call patient. Thank you for the update. Sorry to hear about your discomfort. Your last test results were from 11/2022. Mildly low normal hemoglobin- will monitor with primary care provider. Normal rest of labs and no inflammation. Continue same vitamin D intake with food. Recheck nonfasting labs in 3months.The orders have been placed. Orders mailed for 02/2023. The prior imaging showed severe osteoarthritis and pseudogout. May see ortho and or pain clinic if pain symptoms persist or worsen. Agree with injection if helpful. Notify office if prednisone improves symptoms. Hope you feel better soon! Dr.Tsai Jalil :) documented in this encounterSelect [facility] [place]08-17-2023 Miscellaneous Notes* Telephone Encounter - Eugenio Ellis MD - 01/18/2023 5:20 PM EDT Notify patient medication sent as requested Thank you. Patient's request for medication is as follows: Requested Prescriptions Pending Prescriptions Disp Refills Etanercept (ENBREL) 50 mg/mL (1 mL) injection [Pharmacy Med Name: ENBREL PFS (4/BOX) 50MG/ML] 24 Each 3 Sig: INJECT 1 SYRINGE UNDER THE SKIN 2 TIMES A WEEK. Hold if ill or on antibiotics. No LIVE vaccines. Prescription(s) as above. Please process accordingly. Eugenio Ellis MD * Telephone Encounter - Jodi Gonzalez MA - 01/18/2023 9:26 AM EDT Patient's request for medication is as follows: Requested Prescriptions Pending Prescriptions Disp Refills Etanercept (ENBREL) 50 mg/mL (1 mL) injection [Pharmacy Med Name: ENBREL PFS (4/BOX) 50MG/ML] 3 Sig: INJECT 1 SYRINGE UNDER THE SKIN 2 TIMES A WEEK. Please approve the above prescription(s) to electronically send to pharmacy. oJdi Gonzalez MA Most recent Rheumatology visit: 08/28/2022 (with Eugenio Ellis) Recent Office Visits - This Specialty 08/28/2022 Ankylosing spondylitis of multiple sites in spine (HCC) Rheumatology Eugenio Ellis MD 11/11/2021 Ankylosing spondylitis of multiple sites in spine (HCC) Rheumatology Eugenio Ellis MD 01/19/2021 Chronic bilateral low back pain with bilateral sciatica Rheumatology Eugenio Ellis MD Upcoming Rheumatology Appointments - Next 365 Days Visit Type Date Time Department [facility] 04/06/2023 2:40 PM [facility] CBC: None on file in the last 6 months Vitamin D: None on file in the last 6 months LFT: None on file in the last 6 months Hepatic Function: Creatinine: None on file in the last 6 months ESR/CRP: None on file in the last 6 months Uric Acid: None on file in the last 6 months Open Standing (Multiple Instance) Lab Orders None Open Future (Single Instance) Lab Orders Expected Expires Ordered COMP METABOLIC PANEL [SQCMP] 02/09/23 11/10/23 11/09/22 Auth. provider: Eugenio Ellis MD Assoc. diagnoses: Elevated LFTs CBC [SQCBC] 02/09/23 11/10/23 11/09/22 Auth. provider: uEgenio Ellis MD Assoc. diagnoses: Anemia of chronic disease SED RATE WESTERGREN [SQWSR] 02/09/23 11/10/23 11/09/22 Auth. provider: Eugenio Ellis MD Assoc. diagnoses: Elevated sed rate, Elevated C-reactive protein (CRP) C-REACTIVE PROTEIN (CRP) [SQCRP] 02/09/23 11/10/23 11/09/22 Auth. provider: Eugenio Ellis MD Assoc. diagnoses: Elevated sed rate, Elevated C-reactive protein (CRP) VITAMIN D 25 HYDROXY [SQVITD] 02/09/23 11/10/23 11/09/22 Auth. provider: Eugenio Ellis MD Assoc. diagnoses: Vitamin D deficiency documented in this encounterSelect [facility] [place]08-16-2023 Miscellaneous Notes* Telephone Encounter - Eugenio Ellis MD - 01/17/2023 3:51 PM EDT Notify patient medication sent as requested Thank you. Patient's request for medication is as follows: Requested Prescriptions Pending Prescriptions Disp Refills acyclovir (ZOVIRAX) 400 mg tablet 60 tablet 0 Sig: Take 1 tablet by mouth twice daily. Prescription(s) as above. Please process accordingly. Eugenio Ellis MD * Telephone Encounter - Jodi Gonzalez MA - 01/17/2023 3:37 PM EDT Patient's request for medication is as follows: Requested Prescriptions Pending Prescriptions Disp Refills acyclovir (ZOVIRAX) 400 mg tablet 60 tablet 0 Sig: Take 1 tablet by mouth twice daily. Please approve the above prescription(s) to electronically send to pharmacy. Jodi Gonzalez MA Most recent Rheumatology visit: 08/28/2022 (with Eugenio Ellis) Recent Office Visits - This Specialty 08/28/2022 Ankylosing spondylitis of multiple sites in spine ([facility]) Rheumatology Eugenio Ellis MD 11/11/2021 Ankylosing spondylitis of multiple sites in spine ([facility]) Rheumatology Eugenio Ellis MD 01/19/2021 Chronic bilateral low back pain with bilateral sciatica Rheumatology Eugenio Ellis MD Upcoming Rheumatology Appointments - Next 365 Days Visit Type Date Time Department [facility] 04/06/2023 2:40 PM [facility] CBC: None on file in the last 6 months Vitamin D: None on file in the last 6 months LFT: None on file in the last 6 months Hepatic Function: Creatinine: None on file in the last 6 months ESR/CRP: None on file in the last 6 months Uric Acid: None on file in the last 6 months Open Standing (Multiple Instance) Lab Orders None Open Future (Single Instance) Lab Orders Expected Expires Ordered COMP METABOLIC PANEL [SQCMP] 02/09/23 11/10/23 11/09/22 Auth. provider: Eugenio Ellis MD Assoc. diagnoses: Elevated LFTs CBC [SQCBC] 02/09/23 11/10/23 11/09/22 Auth. provider: Eugenio Ellis MD Assoc. diagnoses: Anemia of chronic disease SED RATE WESTERGREN [SQWSR] 02/09/23 11/10/23 11/09/22 Auth. provider: Eugenio Ellis MD Assoc. diagnoses: Elevated sed rate, Elevated C-reactive protein (CRP) C-REACTIVE PROTEIN (CRP) [SQCRP] 02/09/23 11/10/23 11/09/22 Auth. provider: Eugenio Ellis MD Assoc. diagnoses: Elevated sed rate, Elevated C-reactive protein (CRP) VITAMIN D 25 HYDROXY [SQVITD] 02/09/23 11/10/2311/09/23 Auth. provider: Eugenio Ellis MD Assoc. diagnoses: Vitamin D deficiency documented in this encounterSelect [facility] [place]07-18-2023 Miscellaneous Notes* Telephone Encounter - Eugenio Ellis MD - 12/19/2022 10:45 PM EDT Please call patient. Thank you for the update. Sorry to hear about your medication refill difficulty and discomfort. New script sent to pharmacy. Hope you feel better soon! Warm regards, :) Patient's request for medication is as follows: Requested Prescriptions Signed Prescriptions Disp Refills acyclovir (ZOVIRAX) 400 mg tablet 60 tablet 0 Sig: Take 1 tablet by mouth twice daily. Prescription(s) as above. Please process accordingly. Eugenio Ellis MD documented in this encounterSelect [facility] [place]05-31-2023 Miscellaneous Notes* Telephone Encounter - Shanon Saleh RN - 11/01/2022 7:51 PM EDT Pt. Aware that med has been filled. * Telephone Encounter - Eugenio Ellis MD - 11/01/2022 4:30 PM EDT Notify patient medication sent as requested Thank you. Patient's request for medication is as follows: Requested Prescriptions Signed Prescriptions Disp Refills gabapentin (NEURONTIN) 300 mg capsule 720 capsule 3 Sig: take 1 to 2 capsules by mouth every morning then take 2 capsules by mouth AT NOON then take 2 capsules by mouth nightly Authorizing Provider: EUGENIO ELLIS Prescription(s) as above. Please process accordingly. Eugenio Ellis MD * Telephone Encounter - Dipak Johnson MA - 11/01/2022 1:36 PM EDT Most recent Rheumatology visit: 08/28/2022 (with Eugenio Ellis) Recent Office Visits - This Specialty 08/28/2022 Ankylosing spondylitis of multiple sites in spine (HCC) Rheumatology Eugenio Ellis MD 11/11/2021 Ankylosing spondylitis of multiple sites in spine (HCC) Rheumatology Eugenio Ellis MD 01/19/2021 Chronic bilateral low back pain with bilateral sciatica Rheumatology Eugenio Ellis MD Upcoming Rheumatology Appointments - Next 365 Days Visit Type Date Time Department [facility] 04/06/2023 2:40 PM [facility] CBC: None on file in the last 6 months Vitamin D: None on file in the last 6 months LFT: None on file in the last 6 months Hepatic Function: Creatinine:None on file in the last 6 months ESR/CRP: None on file in the last 6 months Uric Acid: None on file in the last 6 months Open Standing (Multiple Instance) Lab Orders None Open Future (Single Instance) Lab Orders Expected Expires Ordered COMP METABOLIC PANEL [SQCMP] 03/04/22 12/02/22 12/02/21 Auth. provider: Eugenio Ellis MD Assoc. diagnoses: Elevated LFTs CBC [SQCBC] 03/04/22 12/02/22 12/02/21 Auth. provider: Eugenio Ellis MD Assoc. diagnoses: Anemia of chronic disease SED RATE WESTERGREN [SQWSR] 03/04/22 12/02/22 12/02/21 Auth. provider: Eugenio Ellis MD Assoc. diagnoses: Elevated sed rate, Elevated C-reactive protein (CRP) C-REACTIVE PROTEIN (CRP) [SQCRP] 03/04/22 12/02/22 12/02/21 Auth. provider: Eugenio Ellis MD Assoc. diagnoses: Elevated sed rate, Elevated C-reactive protein (CRP) VITAMIN D 25 HYDROXY [SQVITD] 03/04/22 12/02/22 12/02/21 Auth. provider: Eugenio Ellis MD Assoc. diagnoses: Vitamin D deficiency VITAMIN B12 BLOOD [SQB12] 03/04/22 12/02/22 12/02/21 Auth. provider: Eugenio Ellis MD Assoc. diagnoses: Vitamin B12 deficiency BLOOD TB SCREEN [SQINFTBP] 03/04/22 12/02/22 12/02/21 Auth. provider: Eugenio Ellis MD Assoc. diagnoses: Screening-pulmonary TB documented in this encounterSelect Medical [facility] [place]05-31-2023 Miscellaneous Notes* Telephone Encounter - Shanon Saleh RN - 11/01/2022 7:50 PM EDT Pt. Has read her [employer] message. * Telephone Encounter - Eugenio Ellis MD - 11/01/2022 4:31 PM EDT Notify patient medication sent as requested Thank you. Patient's request for medication is as follows: Requested Prescriptions Signed Prescriptions Disp Refills amitriptyline (ELAVIL) 25 mg tablet 180 tablet 3 Sig: Take 2 tablets by mouth daily at bedtime. Authorizing Provider: EUGENIO ELLIS cyclobenzaprine (FLEXERIL) 10 mg tablet 450 tablet 3 Sig: Take 1-2tabs 3times a day Authorizing Provider: EUGENIO ELLIS Prescription(s) as above. Please process accordingly. Eugenio Ellis MD * Telephone Encounter - Dipak Johnson MA - 11/01/2022 1:36 PM EDT Most recent Rheumatology visit: 08/28/2022 (with Eugenio Ellis) Recent Office Visits - This Specialty 08/28/2022 Ankylosing spondylitis of multiple sites in spine (HCC) Rheumatology Eugenio Ellis MD 11/11/2021 Ankylosing spondylitis of multiple sites in spine (HCC) Rheumatology Eugenio Ellis MD 01/19/2021 Chronic bilateral low back pain with bilateral sciatica Rheumatology Eugenio Ellis MD Upcoming Rheumatology Appointments - Next 365 Days Visit Type Date Time Department [facility] 04/06/2023 2:40 PM [facility] CBC: None on file in the last 6 months Vitamin D: None on file in the last 6 months LFT: None on file in the last 6 months Hepatic Function: Creatinine:None on file in the last 6 months ESR/CRP: None on file in the last 6 months Uric Acid: None on file in the last 6 months Open Standing (Multiple Instance) Lab Orders None Open Future (Single Instance) Lab Orders Expected Expires Ordered COMP METABOLIC PANEL [SQCMP] 03/04/22 12/02/22 12/02/21 Auth. provider: Eugenio Ellis MD Assoc. diagnoses: Elevated LFTs CBC [SQCBC] 03/04/22 12/02/22 12/02/21 Auth. provider: Eugenio Ellis MD Assoc. diagnoses: Anemia of chronic disease SED RATE WESTERGREN [SQWSR] 03/04/22 12/02/22 12/02/21 Auth. provider: Eugenio Ellis MD Assoc. diagnoses: Elevated sed rate, Elevated C-reactive protein (CRP) C-REACTIVE PROTEIN (CRP) [SQCRP] 03/04/22 12/02/22 12/02/21 Auth. provider: Eugenio Ellis MD Assoc. diagnoses: Elevated sed rate, Elevated C-reactive protein (CRP) VITAMIN D 25 HYDROXY [SQVITD] 03/04/22 12/02/22 12/02/21 Auth. provider: Eugenio Ellis MD Assoc. diagnoses: Vitamin D deficiency VITAMIN B12 BLOOD [SQB12] 03/04/22 12/02/22 12/02/21 Auth. provider: Eugenio Ellis MD Assoc. diagnoses: Vitamin B12 deficiency BLOOD TB SCREEN [SQINFTBP] 03/04/22 12/02/22 12/02/21 Auth. provider: Eugenio Ellis MD Assoc. diagnoses: Screening-pulmonary TB documented in this encounterSelect [facility] [place]04-[facility]-2023 Miscellaneous Notes* Telephone Encounter - Jodi Gonzalez MA - 09/07/2022 10:26 AM EDT OSTEOARTHRITIS AND PSEUDOGOUT INFO SENT VIA [employer] TO PATIENT * Telephone Encounter - Eugenio Ellis MD - 09/07/2022 6:14 AM EDT Please Call patient if [employer] note not read to review results/released to My Chart if tests completed at [facility]: Hand/wrist xrays show advanced osteoarthritis and pseudogout changes. Please send patient information on pseudogout and osteoarthritis. Happy to further review and discuss at follow up visit. Continue rest of treatment plan per instructions at last office visit. Thank you. [facility]; 07/06/22 left hand xrays- advanced degenerative joint disease throughout the wrist with appearances most compatible with advanced osteoarthritis associated with with chondrocalcinosis. Osteoarthritis superimposed upon an underlying inflammatory arthropathy is possible given extensive abnormality involving wrist. Milder osteoarthritis within several of the DIP. --- [facility] 08/14/22 high vitamin b12>1500pg/mL);normal cmp, potassium 4.1, creat 0.84, glucose 74,calcium 8.8, alkaline phosphatase 47, ast 13, alt 20, crp<0.1 (0-0.74mg/dL), vitamin D 56.7, wbc6.1, hgb 12.2, plts 252, esr 10 (NL0- 30mm/hr);negative quantiferon tb; [facility] 11/18/21 borderline creat 1.03;NL rest of cmp, potassium 4.3, calcium 9.1, alkaline phosphatase 66, ast 17, alt 17, glucose 90, crp 0.5 (NL0- 0.744mg/dl), vitamin D 64.5, wbc 5.3, hgb 11.8, plts 223, esr 18 (NL0-30mm/hr); documented in this encounterSelect [facility] [place]03-27-2023 History of Present illness Narrative* Eugenio Ellis MD - 08/28/2022 8:20 AM EDT Face to face Follow up for Ankylosing spondylitis/CTS/raynauds/joint pain Today's visit 08/28/22:reports dry eyes/mouth, headache, numbness, memory loss, gerd, weight changes. taking flexeril, elavil, enbrel, neurontin 300mg 1-2cap twice a day, mvi. Fell months ago, tooth crack. Multiple falls, crystals, prescribed medication made her worse, will see soon. back injection of steroids a few months ago. No recent oral steroids. 70% improvement from enbrel. Was offfor a months due to insurance and felt worse and more pain all over. no exercise due to dizziness. Left wrist swelling. Chronic current pain in left buttocks, low back, left hand/wrists. Reports pain7/10. Has 30min minimal AM stiffness. More raynauds of fingers, multiple cuts, slow healing, no digital ulcer. 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 Feels safe at home. Has enough food, supplies and medications. Overall mildly uncomfortable but happy with rheum care. No falls/fx/trauma/illness/oral sores/rash/hairloss/jaw pain/dysphagia/epistaxis/hemoptysis since last visit. No adverse effects with meds. No other complaints. Patient denies fever, chills, cp, dyspnea, nausea, vomiting, night sweats, scalp tenderness, visual changes, cadena, bowel/bladder changes, or other complaints. Last visit supportive care, see neurology, see primary care provider for depression care, increase flexeril prn, increase prn neurontin, see derm, see GI, biotene products, follow up with ortho fors/p L CTS care/possible L thumb/wrist ganglion cyst care, on cardizem per PCP/ok to increase for winter, raynauds general measures, wear heated hand glove liners, for flares take prednisone ashanti, f/u ENT for TMJ growth/pain, f/u spine/PT, enbrel 50mg sq injection TWICE a week since 08/2015 since SSZ/methotrexate not tolerated, did discuss alternative biologics if high APRs, prn heat/ice/otc arthritis creams, unable to wear wrist braces due to thumb pain, director long term care pain recommendations per pain clinic/improved with injections, weightbearing exercises/stretching, 11/11/21:had COVID19 infection end of 2020, no antibody infusion, treated with steroids, missed enbrel x 3weeks. Still tired since infection, still has loss of taste and smell. Lost 60lbs. taking elavil, mobic, neurontin 5caps per day, flexeril, enbrel, biotin, vitamin D two gummies, vitamin b12 twogummies. 50-60% improvement from enbrel. Chronic current pain in back, hands, arms. Will see neurology. 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 Reports pain 12/11. minimal AM stiffness. No COVID, flu vaccine. Stopped advil since it gave her headaches. Taking tylenol. raynauds stable. Feelssafe at home. Has enough food, supplies and medications. Overall uncomfortable but happy with rheumcare. No falls/fx/trauma/illness/oral sores/rash/hairloss/jaw pain/dysphagia/epistaxis/hemoptysis since last visit. No adverse effects with meds. No other complaints. Patient denies fever, chills, cp, dyspnea, nausea, vomiting, night sweats, scalp tenderness, visual changes, cadena, bowel/bladder changes, weight changes or other complaints. Last visit supportive care, [place] for COVID vaccines and booster, see primary care provider for depression care, increase flexeril prn, increase prn neurontin, seederm, see GI, biotene products, follow up with ortho for s/p L CTS care/possible L thumb/wrist gangl ion cyst care, on cardizem per PCP/ok to increase for winter, raynauds general measures, wear heated hand glove liners, for flares take prednisone ashanti, f/u ENT for TMJ growth/pain, f/u with PCP/neurology for memory changes, f/u spine/PT, enbrel 50mg sq injection TWICE a week since 08/2015 since SSZ/methotrexate not tolerated, did discuss alternative biologics if high APRs, prn heat/ice/otc arthritis creams, unable to wear wrist braces due to thumb pain, correction pain recommendations per pain clinic/improved with injections, weightbearing exercises/stretching 01/19/21:no COVID vaccines yet. Has enbrel twice a week. Had steroids once since last office visit for joint pain flare. Needs elavil refilled, it helps her sleep. Taking advil. Reports pain 11/11. Minimal Am stiffness. Chronic pain in hands/back/legs. Jaw pain better. More raynauds worse with A/C. Better with gloves. More R index deviated. L 5th finger chronically flexed, surgery for finger 11/2020. Now has diabetes. Taking neurontin. Feels safe at home. Has enough food, supplies. Overall mildly uncomfortable but happy with rheum care. No falls/fx/trauma/illness/oral sores/rash/hairloss/jaw pain /dysphagia/epistaxis/hemoptysis since last visit. No adverse effects with meds. No other complaints. Patient denies fever, chills, cp, dyspnea, nausea, vomiting, night sweats, scalp tenderness, visual changes, cadena, bowel/bladder changes, weight changes or other complaints. Last visit supportive care, see primary care provider for depression care, increase flexeril prn, increase prn neurontin, see derm, see GI, biotene products, follow up with ortho for s/p L CTS care/possible L thumb/wrist ganglion cyst care, on cardizem per PCP/ok to increase for winter, raynauds general measures, wear heatedhand glove liners, for flares take prednisone ashanti, f/u ENT for TMJ growth/pain, f/u with PCP/neurology for memory changes, f/u spine/PT, enbrel 50mg sq injection TWICE a week since 08/2015 since SSZ/methotrexate not tolerated, did discuss alternative biologics if high APRs, prn heat/ice/otc arthritis creams, unable to wear wrist braces due to thumb pain, correction pain recommendations per pain clin ic/improved with injections, weightbearing exercises/stretching, 07/14/20:no response with last neck injection. Due for neck epidural soon. More hand pain. Falls occasionally due to balance. Difficulty holding phone. No response with voltaren. Had dexamethasone butkept her up at night for days, with mild response with hands. Taking neurontin 1cap in AM and noon,2caps at night has leg cramps. Taking flexeril 1 tab in AM and non, 2caps at night. Tried over the counter supplement for cramps. Feels safe at home. Has enough food, supplies and medications. TMJ stable. Oral sores better. Did not have ganglion cysts removed due fo pandemic. Reports pain -12/11. Extended AM stiffness. raynauds stable, not interested in COVID vaccine, Overall mildly uncomfortablebut happy with rheum care. No fx/trauma/illness/oral sores/rash/hairloss/jaw pain/dysphagia/epistaxis/hemoptysis since last visit. No adverse effects with meds. No other complaints. Patient denies fever, chills, cp, dyspnea, nausea, vomiting, night sweats, scalp tenderness, visual changes, cadena, bowel/bladder changes, weight changes or other complaints. Last visit supportive care, see derm, see GI, biotene products, follow up with ortho for s/p L CTS care/possible L thumb/wrist ganglion cyst care, on cardizem per PCP/ok to increase for winter, raynauds general measures, wear heated hand glove liners, for flares take prednisone ashanti, f/u ENT for TMJgrowth/pain, f/u with PCP/neurology for memory changes, f/u spine/PT, enbrel 50mg sq injection TWICE a week since 08/2015 since SSZ/methotrexate not tolerated, did discuss alternative biologics if high APRs, prn heat/ice/otc arthritis creams, unable to wear wrist braces due to thumb pain, correction pain recommendations per pain clinic/improved with SI injections, weightbearing exercises/stretching 01/12/20:had 3RFAs for low back pain, not sure if working/helping yet. TMJ better with prednisone. Feet/ankles R>L swelling from CCB, but stopped and no more swelling. Oral sores, worse after accidental biting. Worse raynauds white fingers. R great toe aches. Reports pain 01/11. Minimal AM stiffness. Two ganglion cyst due for removed. S/p L CTS release. Not sure if enbrel still working or if theincreased stress has made her symptoms worse. Usually stays at home. Feels safe at home. Has enoughfood, supplies and medications. Overall mildly uncomfortable but happy with rheum care. No falls/fx/trauma/illness/oral sores/rash/hairloss/jaw pain/dysphagia/epistaxis/hemoptysis since last visit. No adverse effects with meds. No other complaints. Patient denies fever, chills, cp, dyspnea, nausea,vomiting, night sweats, scalp tenderness, visual changes, cadena, bowel/bladder changes, weight changesor other complaints. Last visit supportive care, see derm, see GI, biotene products, follow up with ortho for s/p L CTS release/possible L thumb/wrist ganglion cyst care, on cardizem per PCP/ok to increase for winter, raynauds general measures, wear heated hand glove liners, for flares take prednisone ashanti, f/u ENT for TMJ growth/pain, f/u with PCP/neurology for memory changes, f/u spine/PT, enbrel 50mg sq injection TWICE a week since 08/2015 since SSZ/methotrexate not tolerated, prn heat/ice/otc arthritis creams, unable to wear wrist braces due to thumb pain, correction pain recommendations per pain clinic/improvedwith SI injections, weightbearing exercises/stretching 07/24/19;had SI low steroid injections improved bilaterally ankle swelling and made it easier for her to get up out of bed. The ankle swelling not improved with oral prednisone. On neurontin/cardizem.[place] worse when she ran out of acyclovir from neurology. Had L cts release 02/2019 with minimal response. May have L thumb/wrist ganglion cyst removal in future. Taking enbrel. Not taking vitamin b12.Tired. Reports pain 7/10. Minimal Am stiffness. Overall mildly uncomfortable but happy with rheum care.No falls/fx/trauma/illness/oral sores/rash/hairloss/jaw pain/dysphagia/epistaxis/hemoptysis since last visit. No adverse effects with meds. No other complaints. Patient denies fever, chills, cp, dyspnea, nausea, vomiting, night sweats, scalp tenderness, visual changes, cadena, bowel/bladder changes,weight changes or other complaints. Last visit supportive care, see derm, see GI, biotene products, follow up with ortho for L CTS release fall 2017, on cardizem per PCP/ok to increase for winter, raynauds general measures, wear heatedhand glove liners, for flares take prednisone ashanti, f/u ENT for TMJ growth/pain, f/u with PCP/neurology for memory changes, f/u spine/PT, enbrel 50mg sq injection TWICE a week since 08/2015 since SSZ/methotrexate not tolerated, prn heat/ice/otc arthritis creams, unable to wear wrist braces due to thumb pain, f/u with ortho for cts care, correction pain recommendations per pain clinic/PCP, weightbearing exercises/stretching 01/09/19:had a flares of hand pain better with prednisone. S/p L CTS 2weeks and had scar of L index fingertip scar. Still has numbness and tingling of fingers. In OT/PT now. Fingertip split when cold, on cardizem, hand warmers. 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 Back on rheum meds. Whit dots and wart on back of hands. Sees pain clinic. Same neck and low back pain. Reports pain 11/11. Minimal AM stiffness. Overall mildly uncomfortable but happy with rheum care. No falls/fx/trauma/illness/oral sores/rash/hairloss/jaw pain/dysphagia/epistaxis/hemoptysis since last visit. No adverse effects with meds. No other complaints. Patient denies fever, chills, cp, dyspnea, nausea, vomiting, night sweats, scalp tenderness, visual changes, cadena, bowel/bladder changes, weight changes or other complaints. Last visit supportive care, consult derm, consult GI, start biotene products, follow up with ortho for L CTS release fall 2018, on cardizem per PCP/ok to increase if needed, raynauds general measures, if needed wearing heated hand glove liners, for flares take prednisone ashanti, f/u ENT for TMJ growth/pain, f/u with PCP/neurology for memory changes, f/u spine/PT, enbrel 50mg sq injection TWICE a week since 08/2015 since SSZ/methotrexate not tolerated, prn heat/ice/otc arthritis creams, unable to wear wrist braces due to thumb pain, f/u with ortho for cts care, correction pain recommendations per pain clinic/PCP, weightbearing exercises/stretching, 01/17/18:has not missed enbrel. primary care provider started BP medication cardizem. Worsening dry mouth. raynauds stable. Summertime 2018 wart like bumps on hands/forearms crawl up arms. More numbness of L>R hand, episodes on thighs and abdomen. Due L CTS release fall 2017. Occasional food getting stuck swallowing. Vomits at night/sleeping. Building playground for 2y/o grandson. Reportspain 12/11. Minimal AM stiffness. Does exercises at home. Overall mildly uncomfortable but happy with rheum care. No falls/fx/trauma/illness/oral sores/rash/hairloss/jaw pain/dysphagia/epistaxis/hemoptysis since last visit. No adverse effects with meds. No other complaints. Patient denies fever, chills, cp, dyspnea, nausea, vomiting, night sweats, scalp tenderness, visual changes, cadena, bowel/bladder changes, weight changes or other complaints. Last visit supportive care, on cardizem per PCP/ok to increase if needed, start raynauds general measures, start wearing heated hand glove liners, for flares take prednisone ashanti, f/u ENT for TMJ growth/pain, f/u with PCP/neurology for memory changes, f/u spine/PT, enbrel 50mg sq injection TWICE a week since 08/2015 since SSZ/methotrexate not tolerated, prn heat/ice/otc arthritis creams, unable to wear wrist braces due to thumb pain, f/u with ortho for cts care, correction pain recommendations perpain clinic/PCP, weightbearing exercises/stretching 05/10/17:reports 11/11 mid-lower back, bilateral hands/fingers, neck, constant, aching. Minimal AM stiffness. here for raynaud's ulcer on her left hand middle digit by PIP started last week. Fingers/toes painful and cold for last few months. Was on coreg, but PCP stopped med and started cardizem lastweek. Worse with band-aid. Has not tried heated gloves. Has not missed enbrel. Sees pain clinic, last injections did not help. Overall mildly uncomfortable but happy with rheum care. No falls/fx/trauma/illness/oral sores/rash/hairloss/jaw pain/dysphagia/epistaxis/hemoptysis since last visit. No adverse effects with meds. No other complaints. Patient denies fever, chills, cp, dyspnea, nausea, vomiting, night sweats, scalp tenderness, visual changes, cadena, bowel/bladder changes, weight changes or other complaints. Last visit supportive care, for flares take prednisone ashanti, f/u ENT for TMJ growth/pain, f/u with PCP/neurology for memory changes, f/u spine/PT, enbrel 50mg sq injection TWICE a week since 08/2015 since SSZ/methotrexate not tolerated, prn heat/ice/otc arthritis creams, unable to wear wrist braces due to thumb pain, f/u with ortho for cts care, correction pain recommendations per pain clinic/PCP, weightbearing exercises/stretching 04/02/17:reports pain to lower back into right pain, 7 constant ache. Had xrays of L wrist/hand showing prior fracture, she does not recall prior trauma. Has not missed enbrel twice a week injections. Overall mildly uncomfortable but happy with rheum care. No falls/fx/trauma/illness/oral sores/rash/hairloss/jaw pain/dysphagia/epistaxis/hemoptysis since last visit. No adverse effects with meds.No other complaints. Patient denies fever, chills, cp, dyspnea, nausea, vomiting, night sweats, scalp tenderness, visual changes, cadena, bowel/bladder changes, weight changes or other complaints. Last visit supportive care, start prednisone ashanti, f/u ENT for TMJ growth/pain, f/u with PCP/neurology for memory changes, f/u spine/PT, enbrel 50mg sq injection TWICE a week since 08/2015 since SSZ/methotrexate not tolerated, prn heat/ice/otc arthritis creams, unable to wear wrist braces due to thumb pain, f/u with ortho for cts care, correction pain recommendations per pain clinic/PCP, weightbearing exercises/stretching 09/28/16:reports 5/10 lower back, left wrist, left side of breast, constant, aching. minimal AM stiffness. Not seen since 12/2015. Had illness 07/2016 but did not see PCP. Did hold 3 enbrel injections. Afraid to hold enbrel too long due to fear of getting a bad joint pain flare. Still very tired/exhausted since illness. Joint pain better with twice a week enbrel. Had severe jaw pain, went to ED twice, not helpful. Now with right chest bone pain lately. Does well with steroids. No steroids since last OV. Overall doing ok and happy with care. No falls/fx/trauma/illness/oral sores/rash/hairloss/jaw pain/dysphagia/epistaxis/hemoptysis since last visit. No adverse effects with meds. No other complaints. Patient denies fever, chills, cp, dyspnea, nausea, vomiting, night sweats, scalp tenderness, visual changes, cadena, bowel/bladder changes, weight changes or other complaints. Last visit supportive care, f/u ENT for TMJ growth/pain, f/u with PCP/neurology for memory changes,f/u spine/PT, enbrel 50mg sq injection TWICE a week since 08/2015 since SSZ/methotrexate not tolerated, prn heat/ice/otc arthritis creams, unable to wear wrist braces due to thumb pain, f/u with orthofor cts care, director long term care pain recommendations per pain clinic/PCP, weightbearing exercises/stretching 12/16/15:reports had injection with pain mgt RLE sciatica better, but now has pain coming from RightSI joint. Fell last week RLE gave out, fell on buttocks. Will see pain clinic for further injections. Used to have neck pain, better now. Approved for enbrel twice a week in 08/2015. Has not missed enbrel. Low back pain 12/11. Minimal AM stiffness. TMJ better. Had eye exam last week. Blurry R eye offand on. Will f/u with eye exam again soon. Able to work 3 good hrs a day. Built screen around frontporch and back deck area by herself. Numbness and tingling of hands ok. Still has some memory changes. Unsure what vit D dose she is taking or if she completed BMD yet. Overall doing ok and happy with care. No fx/trauma/illness/oral sores/rash/hairloss/jaw pain/dysphagia/epistaxis/hemoptysis since last visit. No adverse effects with meds. No other complaints. Patient denies fever, chills, cp, dyspnea, nausea, vomiting, night sweats, scalp tenderness, visual changes, cadena, bowel/bladder changes, weight changes or other complaints. Last visit supportive care, consult ENT for TMJ growth/pain, f/u with PCP/neurology for memory changes, f/u spine/PT, scheduled for emg/xrays, enbrel 50mg sq injection once a week (increase twice a week if approved since SSZ/methotrexate not tolerated), prn heat/ice/otc arthritis creams, unable to w ear wrist braces due to thumb pain, f/u with ortho for cts care, director long term care pain recommendations perpain clinic/PCP, weightbearing exercises/stretching See notes 07/14/20-08/12/15 for details on prior visits 08/12/15:had EMG with mild CTS. More memory changes lately. Had good response with prednisone for 1-2weeks. Has not missed enbrel. Adverse effects with SSZ and methotrexate/no response. Reports 5/10 lower back, constant. Minimal AM stiffness. More b/l leg cramps at night. Not better with increase ofneurontin. Noticed swelling of L TMJ area/painful lump. Chronic memory changes, did not remember phone call about results (and difficulty remembering results discussed at this OV at the end of OV.) Has not seen neurology. Back pain better with injections. Overall doing ok and happy with care. No fal ls/fx/trauma/illness/oral sores/rash/hairloss/jaw pain/dysphagia/epistaxis/hemoptysis since last visit. No adverse effects with meds. No other complaints. Patient denies fever, chills, cp, dyspnea, nausea, vomiting, night sweats, scalp tenderness, visual changes, cadena, bowel/bladder changes, weight changes or other complaints. Last visit supportive care, start trial pred ashanti, consult spine/PT, check emg/xrays, enbrel 50mg sqinjection once a week, prn heat/ice/otc arthritis creams, unable to wear wrist braces due to thumb pain, f/u with ortho for cts care, correction pain recommendations per pain clinic/may consider increasing neurontin, weightbearing exercises/stretching 06/11/15 HPI: here for eval Moving care closer to home. Neck pain started mid 20s Back pain started Finger pain started 30years ago 2005 developed R foot numbness, spinal cord pinch, same still -dx by Lyndsay approx 5 years ago Pain c/o pain and stiffness, /10, tailbone constant ache, increse stiffness with sitting numbness hands when driving Sees pain clinic in [place] c/o left neck pain; states bilat arms buzzing and go numb constant 10/28/14 1. Anklylosing spondylitis / axial spondyloarthritis Sero-negative History of treatment with hydroxychloroquine and methotrexate without benefit Had unknown reaction to sulfasalazine more back days on humira 2006 Currently on Enbrel 2006-present Difficult to assess which symptoms are due to inflammatory disease and which are due to degenerative disease and / or chronic pain issues 2. Cervical spondylosis/DDD 3. Lumbar spondylosis/DDD 4. Osteoarthritis 5. Chondrocalcinosis of R knee Post-traumatic 6. Chronic pain She is being treated aggressively for this. 7. Osteoarthritis hips 05/16: R KATIA, 09/15: L KATIA 8. ? Vascular insufficiency 9. Palpitations Mild tachycardia 10. Hypertension 11. Syncope Cardiology and Neurology evaluations done 12. Nodules on fingers 13. Right wrist painMay be tendinous Appears to be benign RHEUM. ROS: Joint pain: yes -neck, low back, fingers Joint swelling: fingers Am stiffness: yes Low back pain: yes- back injections, completed PT Enthesopathy/Nettie's/heel/plantar tenderness: s/p R cts 1990s Alpecia, patchy: yes 10years Eye inflammation: contacts, 2009 R iritis (has had more than once);last eyes exam 06/2014 [facility]: dry eyes/mouth GI problems-diarrhea/bleeding/IBD/Gluten intolerence/Dysphagia: gerd Raynaud's phenomenon/digital ulcers: yes- white/red Organ inv-Serositis: childhood asthma Lung disease/ILD:childhood asthma Fatigue: yes, sleeps 8hr/night PMR/GCA ROS: negative Other ROS:The remainder of the review of systems is negative. 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 Industrial toxic exposures:no TESTS:[facility] 08/14/22 high vitamin b12>1500pg/mL;normal cmp, potassium 4.1, creat 0.84, glucose 74, calcium 8.8, alkaline phosphatase 47, ast 13, alt 20, crp<0.1 (0-0.74mg/dL), vitamin D 56.7, wbc 6.1, hgb 12.2, plts 252, esr 10 (NL0- 30mm/hr);negative quantiferon tb; [facility] 11/18/21 borderline creat 1.03;NL rest of cmp, potassium 4.3, calcium 9.1, alkaline phosphatase 66, ast 17, alt 17, glucose 90, crp 0.5 (NL0- 0.744mg/dl), vitamin D 64.5, wbc 5.3, hgb 11.8, plts 223, esr 18 (NL0-30mm/hr); 01/19/21 high glu 172;borderline esr 20 (25);NL crp 0.6 (0.9), cbc, cmp; outside 11/09/20 high creat 1.06;NL rest of cmp, wbc 4.9, hgb 12.8, plts 265; 07/14/20 high gluc 178, crp 0.9 (0.4), esr 25 (17);low vitamin B12-498 (403);NL vitamin D 40.8, restof cbc, cmp;negative hepatitis panel, quantiferon tb; 01/12/20 normal cbc, cmp, esr 17 (25), crp 0.4, vitamin D 50.6, vitamin b12-403; 07/24/19 low vitamin b12-428;NL cbc, cmp, gluc 121, esr 25 (23), crp 0.6 (1), vitamin D 72.2; 01/09/19 high esr 23 (15), crp 1 (0.2);low vitamin b12-243;NL rest of cbc, cmp, vitamin D 71.8 (81.4), creatinine 0.87 (1.2), cmp, cbc, uric acid 4.8;negative quantiferon tb; 01/17/18 high creatinine 1.2 (0.99), vitamin D 81.4 (64.5);NL rest of cbc, cmp, esr 15, crp 0.2;negative [place] ifa, alek, quantiferon tb; 04/02/17 high potassium 5.2, creatinine 0.99 (0.9);NL rest of cbc, cmp, esr 17 (24), crp 0.2, vit D64.5; [facility] 08/04/16 low wbc 4.3;NL hgb 12.6, plts 231, esr 26 (NL0-30mm/hr);cmp, creatinine 0.96, calcium, 9.1, ast 14, alt 19, crp 0.4 (NL0-0.74mg/dL), vit D 37.5;negative quantiferon tb [facility] 08/2016 L wrist xrays-1. No definitive acute osseous abnormalities.2. Suspect mild soft tissue swelling in the dorsum of the wrist.3. Degenerative and old posttraumatic changes as noted above. 4. Consider MRI of the wrist to further evaluate if there remains concern for an acute process. Degenerative changes of the first carpometacarpal articulation. Well-corticated ossific densities are identified adjacent to the ulnar styloid possibly related to remote trauma. Minimal protuberance adjacent to the physeal scar of doubtful clinical significance. This could also relate to remote trauma. Well-corticated ossific densities noted adjacent to the radial styloid as well with degenerative changes of the radiocarpal joint. If there is persistent pain in the anatomical snuffbox, recommend followup films in 7-10 days 08/12/15 TMJ xrays-Both mandibular condyles show normal excursion in the open and closed mouth viewswith the left condyle only partially occupying the condyloid fossa. Mild irregularity of the articular surface of the right mandibular condyle. 06/11/15 high esr 23(26);NL crp 0.3, cbc, cmp, vit D 37; 06/11/15 cervical spine xrays-Degenerative changes of the cervical spine as detailed above.Endplate degenerative changes most pronounced at C5-6.Neural foraminal narrowing most pronounced at C5-6 and C6-7 on the right 10/28/14 NL lfts, cbc, creat 1.01, crp 0.5; 10/2014 R wrist xrays-There are postsurgical changes of previous trapezium resection. Appearance is unchanged from 10/08/09. A few small residual bone fragments are noted in the area of resection. 01/2014 negative RF 10 09/18/13 low hgb 10; 08/2013 negative [facility], lupus anticoag panel;NL c3, c4; 04/2013 hip xrays-significant progression joint space loss bilaterally, disruption of the subchondral plates, enlargement of the left acetabular roof cyst and surrounding sclerosis and development ofmultiple right femoro- acetabular cysts. There also has been slight increase in facet sclerosis about the lower lumbar spine. An incidental finding is a small focus of calcification in the deep subcutaneous tissues of the proximal right thigh which may represent an area of fat necrosis and not felt to be clinically significant.IMPRESSIONSIGNIFICANT PROGRESSION OF BILATERAL DEGENERATIVE ARTHRITIS OF THE HIP JOINTS IN COMPARISON WITH AN EXAMINATION OF OVER 3 YEARS A GO. 03/2013 high esr 26; 11/2010 lumbar xrays-Lumbar spine: There is severe disk height loss at L5-S1 with endplate spurring,slightly progressed from the 2007. The remainder of the disks are relatively maintained. Small endplate spurs at L2-3 and L3-4. Multilevel mild facet joint degenerative changes. Vertebral body heights and alignment normal. 11/2010 hip xrays-Limited view of the pelvis incompletely demonstrates severe superolateral joint space narrowing of the left hip with a prominent acetabular subchondral cyst, more advanced compared to 10/08/2009. Sacroiliac joints are maintained. 11/2010 Thoracic spine xrays: There is disc height loss in the lower thoracic spine with endplate osteophytes, moderate to severe at T11-12, unchanged. Vertebral body heights are preserved. Limited view of the cervical spine again demonstrates mild C3 on C4 and C4 on C5 anterolisthesis, unchanged. Alignment is otherwise anatomic. IMPRESSION:1. NO ACUTE ABNORMALITY. 2. MARKED DEGENERATIVE DISC DISEASE L5-S1. 3. MODERATE MARKED DEGENERATIVE DISEASE T11-12.4. DEGENERATIVE ARTHRITIS IN BOTH HIPS 09/2007 negative hla b27 07/2007 negative rf, ccp, [facility] ifa, [facility], dsdna<12, hepatitis panel Additional pertinent test results reviewed in medical chart PHYSICAL EXAM reviewed vitals from last visit BP 112/74 Pulse 81 Wt 205 lb 6.4 oz (93.2kg) SpO2 94% LMP 05/12/2006 BP 126/80 Pulse 98 Wt 77.1 kg (170 lb) LMP 05/12/2006 BMI 25.10 kg/m General Appearance: WD/WN, NAD. Appropriate grooming. Very pleasant. Slender. Ambulates fair without assistance or assistive devices, denies SI/HI, SKIN: healing cuts on fingertips, No rash, no psoriasis, no purpura, no ulcers, no skin thickening/tightness, no telangiectasias. HEENT: No patchy alopecia, normal temporal artery pulsations, non-tender, scalp non-tender, no conjunctival injection or icterus, no oral ulcers, no thrush, normal nasal mucosa, no sinus tenderness, normal TM's. Yes contacts, fair dentition NECK: no visible thyromegaly or LAD. EXTREMITIES: Adequate pulses b/l UE; No clubbing,discoloration,sclerodactyly, periungual erythema, digital ulcers, nail pitting, edema, varicosities. MUSCULOSK: s/p b/l THR, s/p L CTS, s/p L index fingertip scar tissue removed No joint deformities, no rheumatoid nodules, calcifications or tophi. No SI tenderness, no nettie's tenderness, no heel/plantar tenderness, lumbar flexion full, 3inches neck to wall Back flexion 13inches Swoll JTS:two cysts on L wrist Tend. JTS:left buttock, lumbar back, cervical area, L>R hands/wrists L>R, R chest wall/bone pain, R SI joint area, fingers;decreased range of motion of neck and back due to pain;no warmth/erythema No clinical synovitis in the DIP's, PIP's, MCP's, wrists, elbows, shoulders, knees, ankles, midfoot, or toes. no knee effusions bilateral. Shoulder exam:full range of motion; no warmth/erythema Hip rom without pain LIMITATION of Motion of Joints: yes IMPRESSION/DIAGNOSIS:08/28/22 M45.0 Ankylosing spondylitis of multiple sites in spine (HCC) (primary encounter diagnosis) Z79.899 Long-term use of high-risk medication M79.641, M79.642 Bilateral hand pain M15.3 Secondary osteoarthritis of multiple sites I73.00 Raynaud's disease without gangrene M54.50, G89.29 Chronic bilateral low back pain without sciatica M25.532 Pain in left wrist E55.9 Vitamin D deficiency E53.8 Vitamin B12 deficiency R70.0 Elevated sed rate R79.82 Elevated C-reactive protein (CRP) 62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[employer] with PMH:venous insufficiency, htn, s/p tubal ligation, palpitations, 05/2013 s/p R THR, 09/2013 s/p L THR, s/p R cts 1990s, 2009 R iritis (has had more than once), gerd, childhood asthma, uterine fibroids presents Neck pain started mid 20s, Back pain started , Finger pain started 30years ago 2004 developed R foot numbness, spinal cord pinch, same still, diagnosed with 2009, has numbnessand tingling of hands/arms with certain positions, chronic neck/back pain/limited range of motion, djd on imaging, high esr, limited neck to wall/limited spinal flexion, negative hla b27, has findings with history of seronegative inflammatory arthritis/ankylosing spondylitis, repeated R eye iritis,djd, cervicalgia, lumbago, possible cts, here with L TMJ bony growth/painful, chronic memory changes, chronic back pain, R SI joint area, history of costochondritis, raynaud's symptoms, numbness of L>R hand, episodes on thighs and abdomen, more dry mouth, food getting stuck swallowing, had a flares of hand pain better with prednisone. S/p L CTS 2weeks and had scar of L index fingertip scar. Still has numbness and tingling of fingers. had SI low steroid injections improved bilaterally ankle swelling and made it easier for her to get up out of bed. The ankle swelling not improved with oral pr ednisone. On neurontin/cardizem. [place] worse when she ran out of acyclovir from neurology. Had L ctsrelease 02/2019 with minimal response. Taking enbrel. had 3RFAs for low back pain, not sure if working/helping yet. TMJ better with prednisone. Feet/ankles R>L swelling from CCB, but stopped and nomore swelling. raynauds white fingers/same. S/p L CTS release. no response with last neck injection. Falls occasionally due to balance. Difficulty holding phone. No response with voltaren. Had dexamethasone but kept her up at night for days, with mild response with hands. Tried over the counter supplement for cramps. Feels safe at home. Has enough food, supplies and medications. TMJ stable. Oral sores better. Did not have ganglion cysts removed due fo pandemic.elavil helps her sleep. More raynauds worse with A/C. Better with gloves. More R index deviated. L 5th finger chronically flexed, surgery for finger 11/2020. Now has diabetes. had COVID19 infection end of 2020, no antibody infusion, treated with steroids, missed enbrel x 3weeks. Still tired since infection, still has loss of taste and smell. Had Lost 60lbs. Chronic current pain in back, hands, arms. Will see neurology. 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 No COVID, flu vaccine. Stopped advil since it gave her headaches. Taking tylenol. reports dry eyes/mouth, headache, numbness, memory loss, gerd, weight changes. taking flexeril, elavil, enbrel, neurontin 300mg 1-2cap twice a day, mvi. Fell months ago, tooth crack. Multiple falls, crystals, prescribed medication made her worse, will see soon. back injection of steroids a few months ago. No recent oral steroids. 70% improvement from enbrel. Was off for a months due to insurance and felt worse and more pain all over. no exercise due to dizziness. Left wrist swelling. Chronic current pain in left buttocks, low back, left hand/wrists. Reports pain 7/10. Has 30min minimal AM stiffness. More raynauds of fingers, multiple cuts, slow healing, no digital ulcer. 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 Feels safe at home. Has enough food, supplies and medications. Overall mildly uncomfortable but happy with rheum care = supportive care, start fall precautions, see neurology for dizziness/crystals care, see primary care provider for depression care/concern about low glucose, flexeril prn, prn neurontin, see derm, seeGI, biotene products, follow up with ortho for s/p L CTS care/possible L thumb/wrist ganglion cyst care, on cardizem per PCP/ok to increase for winter, raynauds general measures, wear heated hand glove liners, for flares take prednisone [place], f/u ENT for TMJ growth/pain, f/u spine/PT, enbrel 50mg sqinjection TWICE a week since 08/2015 since SSZ/methotrexate not tolerated, did discuss alternative biologics if high APRs, prn heat/ice/otc arthritis creams, unable to wear wrist braces due to thumb pa in, correction pain recommendations per pain clinic/improved with injections, weightbearing exercises/stretching, answered all questions and concerns-patient voiced understanding. RECOMMENDATION/PLAN: Reviewed labs/tests with patient Provided printed info 08/28/22 check cmp, cbc, esr, crp, vit D every 3months, printed orders, yearly quantiferon tb Modified08/28/22 [place]AG[place] 0, pain 70%;11/11/21 EAGLE 0, pain 70%;01/19/21 EAG[place] 0, pain 60%;07/14/20 EAGLE 0, pain 60-70%;01/12/20 EAG[place] 0, pain 80%;07/24/19 EAGLE 0, pain 70%;01/09/19 EAGLE 0, pain 60%;01/17/18 EAGLE 0, pain70%;05/10/17 EAGLE 0, pain 50- 60%;04/02/17 EAGLE 0, pain 70%;09/28/16 EAGLE 0, pain 50-70%;12/16/15 EAGLE 0, pain 70%;08/12/15 EAGLE 0, pain 50%;06/11/15 EAGLE 0.5, pain 60%; 08/12/15 precert increase of enbrel to twice a week May apply over the counter arthritis cream (biofreeze, icy hot, asper cream, tiger balm, capsacin, etc.) to painful joints up to four times a day. Avoid contact with eyes. May take ES acetaminophen 500mg every 4-6hours for joint pain. Do not exceed 3000mg /day. Decrease stress Improve sleep May apply heat/ice 20minutes on and off to areas of pain Avoid aggravating triggers If needed, may take Calcium 1000mg daily with food in DIVIDED doses If labs normal, Vitamin D 4000 International Units daily with food Vitamin b12 as instructed meloxicam 15mg daily for pain Neurontin/gabapentin as instructed OFF cardizem May apply nitrobid for raynauds as instructed, may cause headaches enbrel 50mg sq injection TWICE a week Please hold enbrel if on antibiotics or if you have any signs/symptoms of infection. 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 -Vitamin D supplementation recommended, optimal dose is the dose necessary to achieve Vitamin D 25-OH blood level in range of 40-60 ng/mL. (Vitamin D supplement in international units, is the dose necessary to achieve a Vitamin D 25-OH blood level in range of 40-60 ng/mL). -Recommended daily dose of calcium: 1200mg total a day in divided doses. Calcium from dietary sources, if not sufficient, or if with h/o calcium nephrolithiasis would recommend Calcium Citrate supplement, as it is recommended to avoid caclium carbonate products, which as main dietary calcium source. The after visit summary has information on dietary calcium and instructions on reading calcium label and converting the %DV to mg. -Regular weight-bearing and muscle-strengthening exercise -Avoidance of tobacco smoking, excessive alcohol intake and excessive caffeine intake. -Fall and fracture precautions -Continued regular dental follow up visits and good dental/gum care Stressed the importance of following up with PCP and specialists for his/her chronic diseases, health, CV, and cancer screening and continued care. Will follow disease activity/progression and adjusttherapeutic regimen to disease activity and severity. Discussed medication dosage, usage, goals of therapy, and side effects. Available test results were reviewed An additional 20 minutes were spent outside of the patient visit to review records. Additional time spent with the patient to discuss their questions. Additional time spent with the patient devoted to discussing treatment strategy, planning, and implementation. Discussed findings, impression and plan with patient. Patient understands above plan; questions asked and answered. Patient agrees to plan as noted above. Total time spent on this visit, with more than 50% of time spent in video & audio (virtual) or phone or face to face with patient, in consultation, and in addition to Counseling and Coordination of Care, explanation of diagnosis, and planning of further management, I spent a total of 30 minuteson the date of the service which included preparing to see the patient, video & audio (virtual)or phone or [id number] patient care, completing clinical documentation, obtaining and/or reviewing separately obtained history, performing a medically appropriate examination, counseling and educating the patient/family/caregiver, ordering medications, tests, or procedures, communicating with other HCPs (not separately reported), independently interpreting results (not separately reported), communicating results to the patient/family/caregiver and care coordination (not separately reported) Follow up 6months, earlier if needed Recommendations to share with referring physician/Primary care physician : Dear Dr. Garcia : I had the pleasure of seeing your patient, . I have enclosed a copy of my clinic note withmy assessment and recommendations for this patient. Recommendations for your consideration as you deem necessary: -Continuous follow up with Primary care physician for cardiovascular disease prevention, for age appropriate cancer screening and routine health maintenance and wellness, and infection precautions and age appropriate immunization recommended. Thank you for allowing me to participate in the care of your patient. Eugenio Ellis MD I will relay my findings and recommendations to the physician requesting the consult by letter/electronic shared medical records. cc Rafaela Umana MD;Dr.Jennifer Garcia [address] [facility] [id number] Answers submitted by the patient for this visit: Review of Systems Rheumatology (Submitted on 08/23/2022) Fever : No Recent Unintentional Weight Change: Yes Eye Pain: Yes Eye Redness: No Vision Disturbance: Yes Eye Dryness: Yes Nose Bleeds: No Sores in your Mouth: Yes Trouble Swallowing: No Dry Mouth: Yes Chest Pain: No Leg Swelling: No A Cough: No Shortness of Breath: No Pain with Breathing: No Heartburn: Yes Abdominal Pain: No Diarrhea: No Black Tarry Stools: No Blood in Urine: No Pain or Burning with Urination: No Joint Pain or Stiffness: Yes Muscle Weakness: Yes Muscle Aches: Yes Joint Swelling: Yes Morning Stiffness in Joints: Yes A Rash: No Skin Color Changes: No Hair Loss: No Nail Changes: No Headaches: Yes Numbness: Yes Memory Loss: Yes Swollen Glands: No MYCHART AMBULATORY VISIT INTAKE QUESTIONNAIRE Question 08/23/2022 3:08 PM EDT - Filed by Patient Has the patient had unintentional weight loss or gain? Yes: Provider notified Do you have concerns about personal safety or safety in the home? No Has the Patient Had 2 Falls in the Last Year or 1 Fall with Injury or Currently Using an AmbulatoryAssistive Device (Walker, Cane, Wheelchair, Crutches, etc.) Yes, Patient High Risk for Falls, Notify provider if applicable Are you having pain associated with your visit today? Yes What is your Pain Level? 8 Pain Location Hand-Left Description Aching Contraction Sore Stiffness Tightness Duration Amount of Time 18 Duration Units Hours Frequency Continuous Intervention/Comfort measure Medication Distractions Heat Modify dressing application Modify dressing type Positioning Comments REDUCING YOUR RISK OF FALLING DURING AN MEDICAL APPOINTMENT Question 08/23/2022 3:08 PM EDT - Filed by Patient Fall Prevention Instructions Acknowledged Yes PATIENT-ENTERED [facility] 2019 MSP: PART I AND EMPLOYMENT Question 08/23/2022 3:09 PM EDT - Filed by Patient Are you currently employed? No Do you have a spouse who is currently employed? No PATIENT-ENTERED [facility] 2019 MSP: PART I Question 08/23/2022 3:09 PM EDT - Filed by Patient Medicare requires that we periodically ask the following questions. Are you receiving benefits under the Black Lung Benefits Act (BL)? No Was the illness/injury due to a work-related accident/condition? No Are you receiving treatment for an injury or illness covered under no-fault (and/or medical-paymentcoverage) including premises or automobile? No Are you receiving treatment for an injury, or illness, for which another libertarian may be liable? No PATIENT-ENTERED [facility] 2019 MSP: PART II Question 08/23/2022 3:09 PM EDT - Filed by Patient Are you entitled to Medicare based on: Age? Yes End-stage renal disease (ESRD)? No Patient-Entered Msp: [id number] Primary Branch Calculation (range: 0 - 5) 1 PATIENT-ENTERED [facility] 2019 MSP: AGE Question 08/23/2022 3:09 PM EDT - Filed by Patient Do you have group health plan (GHP) coverage based on your own current employment or the employmentof your spouse? No [facility] PROMIS CAT V2.0-PHYSICAL FUNCTION-28 DAYS Question 08/23/2022 3:10 PM EDT - Filed by Patient Does your health now limit you in doing two hours of physical labor? Quite a lot Does your health now limit you in doing yard work like raking leaves, weeding, or pushing a lawn care professional? Cannot do Are you able to do chores such as vacuuming or yard work? With much difficulty Are you able to carry a laundry basket up a flight of stairs? Unable to do PROMIS Physical Function T-Score (range: 10 - 90) 33 (moderate dysfunction) PROMIS Physical Function Percentile (range: 0 - 100) 4 [facility] PROMIS CAT V1.0 - FATIGUE-28 DAYS Question 08/23/2022 3:11 PM EDT - Filed by Patient How often did you have to push yourself to get things done because of your fatigue? Sometimes I have trouble starting things because I am tired Quite a bit How run-down did you feel on average? Quite a bit How much were you bothered by your fatigue on average? Quite a bit PROMIS Fatigue T-Score (range: 10 - 90) 62 (moderate) PROMIS Fatigue Percentile (range: 0 - 100) 12 [facility] PROMIS CAT V1.1-PAIN INTERFERENCE-28 DAYS Question 08/23/2022 3:11 PM EDT - Filed by Patient How much did pain interfere with your day to day activities? Quite a bit How much did pain interfere with your ability to participate in social activities? Quite a bit How much did pain interfere with your enjoyment of social activities? Very much How much did pain interfere with work around the home? Quite a bit PROMIS Pain Interference T-Score (range: 10 - 90) (range: 10 - 90) 68 (moderate) PROMIS Pain Interference Percentile (range: 0 - 100) 4 MYC RAPID 3 Question 08/23/2022 3:13 PM EDT - Filed by Patient Dress yourself, including typing shoelaces and doing buttons? UNABLE to do Get in and out of bed? With SOME difficulty Lift a full cup or glass to your mouth? With SOME difficulty Walk outdoors on flat ground? Without ANY difficulty Wash and dry your entire body? With SOME difficulty Bend down to roll picker clothing from the floor? With MUCH difficulty Turn regular faucets on and off? With SOME difficulty Get in and out of a car, bus, train, or airplane? With SOME difficulty Walk tow miles or three kilometers, if you wish? UNABLE to do Participate in recreational activities and sports as you would like, if you wish? UNABLE to do Get a good night's sleep? With SOME difficulty Deal with feelings of anxiety or being nervous? With SOME difficulty Deal with feelings of depression or feeling blue? With SOME difficulty RAPID 3 Pain Level 7 RAPID 3 HOW DOING OVERALL 8 RAPID 3 Functional Status Score (range: 0 - 10) 5.33 PAIN LEVEL (range: 0 - 10) 7 Global Estimate (PTGE) (range: 0 - 10) 8 RAPID 3 CUMULATIVE SCORE (range: 0 - 30) 20.33 RAPID 3 Weighed Score (range: 0 - 10) 6.78 (High Severity (HS)) Weighed Score Percentage Change Compared to Last (range: -500 - 500) 11.88 MYC PROMIS 10 ADULT SHORT FORM V1.0 GLOBAL HEALTH Question 08/23/2022 3:17 PM EDT - Filed by Patient In the past 7 days In general, would you say your health is: Fair Abnormal In general, would you say your quality of life is: Good In general, how would you rate your physical health? Fair Abnormal In general, how would you rate your mental health, including your mood and your ability to think? Poor Abnormal In general, how would you rate your satisfaction with your social activities and relationships? Fair Abnormal In general, please rate how well you carry out your usual social activities and roles. (This includes activities at home, at work and in your community, and responsibilities as a parent, child, spouse, employee, friend, etc.) Poor Abnormal To what extent are you able to carry out your everyday physical activities such as walking, climbing stairs, carrying groceries, or moving a chair? A little Abnormal In the past 7 days In the past 7 days, how often have you been bothered by emotional problems such as feeling anxious,depressed or irritable? Often Abnormal In the past 7 days, how would you rate your fatigue on average? Moderate In the past 7 days, how would you rate your pain on average? 7 Abnormal PROMIS Adult Short Form-Global Health Score (Physical) (range: 16 - 68) 32.4 (Poor) PROMIS Adult Short Form-Global Health Score (Mental) (range: 21 - 68) 33.8 (Fair) Myc Promis Gh Physical Score Compared To Last (range: -2 - 3) 3 (WITHIN +/- 5) Myc Promis Gh Mental Score Compared To Last (range: -2 - 3) 3 (WITHIN +/- 5) MYC PROVIDER UNDERSTANDING CURRENT HEALTH RHEUMATOLOGY Question 08/23/2022 3:18 PM EDT - Filed by Patient These questions will help my provider understand my health Strongly Agree [facility] Inst[facility]* Patient Instructions* Eugenio Ellis MD - 08/27/2022 7:54 PM EDT May apply over the counter arthritis cream (biofreeze, icy hot, asper cream, tiger balm, capsacin, etc.) to painful joints up to four times a day. Avoid contact with eyes. May take ES acetaminophen 500mg every 4-6hours for joint pain. Do not exceed 3000mg /day. Decrease stress Improve sleep May apply heat/ice 20minutes on and off to areas of pain Avoid aggravating triggers If needed, may take Calcium 1000mg daily with food in DIVIDED doses Vitamin D 4000 International Units daily with food Vitamin b12 as instructed meloxicam 15mg daily for pain Neurontin/gabapentin as instructed OFF cardizem May apply nitrobid for raynauds as instructed, may cause headaches enbrel 50mg sq injection TWICE a week Please hold enbrel if on antibiotics or if you have any signs/symptoms of infection. 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 Moisturizing treatments Stimulating saliva -- Simply sucking on sugarless candy or dried fruit slices (eg, peaches or nectarines) can stimulate the flow of saliva in many patients. [place] flavored sugarless tablets and sugar-free chewing gum may also be helpful. In some patients, medications such as pilocarpine or cevimeline are given to increase saliva production. Replacing secretions in the mouth -- Sipping on water throughout the day is an easy and effective treatment of dry mouth for many patients. The water does not have to be swallowed. It can be rinsed around the mouth and then spit out. If this is not effective, an artificial saliva product (spray or lozenge) may be helpful. If painful gums are a problem, a gel that relieves dry mouth (such as Oral Balance) can be helpful. Avoiding cavities -- Patients with SS are at increased risk for dental cavities. SS patients shouldperform careful dental hygiene, ideally brushing and dental flossing after eating meals and snacks.Patients should visit their dentist at least every six months. Toothpaste designed specifically for patients with dry mouth is available (eg, Biotene , Orajel ). These lack the detergents that are present in many types of toothpaste, which can irritate a dry mouth. Toothbrushes with special features that help clean between the teeth and electric toothbrushes may also help to keep the teeth clean. Patients should use a toothpaste with fluoride or a special fluoride rinse or varnish. We recommenda fluoride treatment with a dentist or dental hygienist after each cleaning. Since the dentist may not stock this treatment, patients should contact the dental office prior to the appointment. Dry eye -- Use of a humidifier or moist washcloth over the eyes may provide some relief for dry eyes. Most patients also use an artificial tear drop. Many different solutions are available; a clinician can recommend an appropriate choice based on an individual's pattern of dryness and fluid production in the eye. Some patients are sensitive to the preservatives found in artificial tear preparations. If burning or itching occurs, a brand with a non-irritating preservative may be tried. Alternately, a preservative-free variety can be used. Eye drops without preservative come in small, single-dose containers that may be hard for some people with joint and/or vision problems. A prescription eye drop containing cyclosporine is also available (Restasis ). Some patients use an eye ointment at night. It is important to use only about 1/8 (3 mm) of the ointment because overuse can block the ducts and lead to a condition called blepharitis (see Blepharitis (eyelid inflammation) below). Preserving natural tears -- Various measures can be used to preserve a patient's own tears. Shieldscan be fitted on the sides of glasses, helping to protect the eye from air and wind, reducing evaporation of tears. Goggles or wrap-around sunglasses serve a similar function. Another approach is a simple surgical procedure called punctal occlusion. In this procedure, an marine firefighter inserts small plugs into the tear ducts in the corner of the lower eyelid, nearest the nose, where the tears normally collect and drain into the nasal passages. By blocking this duct, thepatient's tears stay on the eye longer. There are several types of plugs, one of which does not touch the surface of the eyeball; these plugs are generally preferred. Treating other problems Fungal infections in the mouth -- Prescription medications are available to treat painful mouth lesions due to oral candidiasis (yeast infection); these include clotrimazole, nystatin elixir, miconazole gel, or amphotericin B lozenges. Patients who wear dentures and develop an infection should disinfect the dentures overnight while being treated. The soak should include nystatin powder or 0.2 percent chlorhexidine solution to prevent reinfection. Dry nose -- It is important to treat nasal dryness or stuffiness because blocked nasal passages canincrease mouth breathing and worsen dry mouth. Saline nasal sprays are available in most drugstores. Other cause of nasal blockage, including allergy or sinus infection, should be treated promptly. (See Patient information: Rhinitis). Blepharitis (eyelid inflammation) -- Blepharitis causes symptoms that are similar to those of dry eye (swollen lids and redness of the inside of the lids). Gently washing the skin of the eyelids can relieve blepharitis. This can be done with a warm wet washcloth and a small amount of no tears shampoo. With the eyes closed, the excess debris should be rubbed from the inner eye to the outer eye area. Dryness in other areas -- Patients with SS may have dryness in other areas, including the lips, skin, and the vagina. Dry lips may require petroleum jelly or lip salves. Dry skin usually improves with frequent and liberal use of a moisturizing cream or ointment. Some women with SS have difficulty with vaginal dryness, especially after menopause. There are several products specifically designed for vaginal dryness, including vaginal moisturizers, estrogen cream, vitamin E oil, and lubricants for use with sexual intercourse; a healthcare provider should be consulted for specific recommendations. GENERAL MEASURES -- The following general measures are helpful for all patients with Raynaud's: Avoidance of sudden cold exposure and stress reduction Use of strategies to keep the whole body warm, including dressing warmly (eg, with thermal underwear and heat conserving hat) Keeping digits warm (eg, mittens or electric hand warmers instead of gloves). Knowledge of methods to help terminate an attack of RP. These include placing the hands under warm water or in a warm place (such as the axilla), or rotating arms in a whirling or windmill pattern. Avoidance of rapidly changing temperatures, such as quickly moving from a hot environment (90 degrees F) into an air-conditioned room (70 degrees F); cool breezes, or humid cold air is also recommended. Avoidance of smoking is recommended since regular smokers are sensitized to the vasoconstrictive properties of cigarettes; the response in patients with RP does not appear to be different from that in normals [5]. Avoiding second hand smoke is prudent. Avoidance of sympathomimetic drugs (such as decongestants, amphetamines, diet pills, herbs containing ephedra) is generally recommended, but studies of the true impact of zwzf-nbz-ogwbwez preparations (such as cold medications) have not yet been performed. Discontinuing caffeine containing beverages has also been recommended, but xanthines transiently reduce peripheral vascular resistance. Patients with vibration-induced RP should avoid use of vibrating tools. Raynaud's phenomenon often can be managed just with lifestyle modification. Certain general measures may be adopted to help prevent and terminate Raynaud s attacks. These simple measures can reduce the frequency, severity, and duration of attacks and include avoiding cold temperatures and temperature fluctuations; alleviating stress; adopting measures to keep the body warm, including adequate clothing (eg, using multiple layers, wearing thermal underwear and a warm hat); and keeping the fingerswarm (eg, by using mittens or electric hand warmers instead of gloves). Placing the hands under warm water or rotating the arms in a windmill pattern may help abort Raynaud s attacks. Both active andpassive smoking should be avoided to help minimize the vasoconstrictive effects of tobacco. Sympathomimetic drugs (eg, decongestants, stimulants, and anorexiants) should also be avoided. A calcium channel agnieszka, such as Amlodipine (Norvasc) 2.5mg tablet at night or Procardia, can be used during the winter months for intractable Raynaud's phenomenon. [facility] FACTS LAB HOURS: Lab is open 6am to 5:30pm -, open 6am -5pm on Sunday and open 8am- 12pm Sunday. Routine Lab Orders 45 days after they are entered. If your lab orders , you may be required to wait in the lab while they are reinstated FUTURE ORDERS are lab tests to be completed on the EXPECTED date. These orders 45 days afterthe expected date. STANDING ORDERS are recurring orders with an expiration date. The interval will indicate how often the test should be completed. FASTING LAB means nothing to eat or drink (except water) 10-12 hours before your blood is drawn. CT/MRI/IVP If you have one of these radiology exams ordered along with blood work, please complete the blood work at least one day prior to the scheduled exam. My Chart Schedule My Appointment enables you to view your established primary care provider's open schedule and book an appointment online in real-time. This feature is available in internal medicine, family medicine, or pediatrics at any of our [facility] locations and main campus.] [facility] 08/14/22 high vitamin b12>1500pg/mL);normal cmp, potassium 4.1, creat 0.84, glucose 74,calcium 8.8, alkaline phosphatase 47, ast 13, alt 20, crp<0.1 (0-0.74mg/dL), vitamin D 56.7, wbc6.1, hgb 12.2, plts 252, esr 10 (NL0- 30mm/hr);negative quantiferon tb; documented in this encounterSelect [facility] [place]03-17-2023 Miscellaneous Notes* Telephone Encounter - Eugenio Ellis MD - 08/18/2022 11:16 AM EDT Thank you for updated lab results. * Telephone Encounter - Katharine Perez MA - 08/18/2022 10:30 AM EDT TB results received and placed on Dr. Ellis's desk for review. Future lab orders due in March 2023, faxed to [facility] with confirmation received. * Telephone Encounter - Dipak Johnson MA - 08/18/2022 10:23 AM EDT Pt was notified via . Called [id number] and they are faxing tb results to us. * Telephone Encounter - Eugenio Ellis MD - 08/18/2022 6:35 AM EDT Please obtain results for quantiferon tb ( if not completed, please send order for next time). Thank you. Please Call patient if MyChart note not read to review results/released to My Chart if tests completed at F: Mildly high normal vitamin b12- decrease intake in half, will monitor with primary care provider. normal labs and no inflammation. Continue same daily vitamin D with food. Recheck nonfasting labs in 3months .The orders have been placed. Please send orders cbc, cmp, esr, crp, vitamin D/b12. Please fax results to rheum office. Happy to further review and discuss at follow up visit. Continue rest of treatment plan per instructions at last office visit. Thank you. [facility] 08/14/22 high vitamin b12>1500pg/mL);normal cmp, potassium 4.1, creat 0.84, glucose 74,calcium 8.8, alkaline phosphatase 47, ast 13, alt 20, crp<0.1 (0-0.74mg/dL), vitamin D 56.7, wbc6.1, hgb 12.2, plts 252, esr 10 (NL0- 30mm/hr);negative quantiferon tb; [facility] 11/18/21 borderline creat 1.03;NL rest of cmp, potassium 4.3, calcium 9.1, alkaline phosphatase 66, ast 17, alt 17, glucose 90, crp 0.5 (NL0- 0.744mg/dl), vitamin D 64.5, wbc 5.3, hgb 11.8, plts 223, esr 18 (NL0-30mm/hr); * Telephone Encounter - Lida Key LPN - 08/17/2022 9:58 AM EDT [facility] Placed on your desk for review. documented in this encounterSelect Medical [facility] [place]03-15-2023 Miscellaneous Notes* Telephone Encounter - Katharine Perez MA - 08/16/2022 9:27 AM EDT Lab orders faxed with confirmation received. * Telephone Encounter - Alejandra Bryant Ma - 08/16/2022 9:02 AM EDT Rhona Garcia called today. : 1960 Allergies: Cinnamon, Shellfish, Arava [Leflunomide], Coconut, Dairy Aid [Lactase], Darvocet A500 [Propoxyphene N-Acetaminophen], Dust, Sulfasalazine, Tree Nuts [Other], and Trees (home) [phone] (cell) Reason for call: Josi from [facility] calling asking if the lab orders from Dr Ellis could be faxed to them at [phone] Phone- [phone] Please advise. Patient last appointment: Visit date not found The patients preferred pharmacy has been captured for this encounter? no Alejandra Bryant documented in this encounterSelect Medical [facility] [place]10-06-2022 Miscellaneous Notes* Telephone Encounter - Lida Key LPN - 03/09/2022 3:05 PM EDT Left VM that Enbrel has been approved until 03/09/2023. documented in this encounterSelect Medical [facility]ty [facility] [place]10-03-2022 Miscellaneous Notes* Telephone Encounter - Lida Key LPN - 03/06/2022 9:53 AM EDT No fax received from [facility] since 01/24/22. Approval and chart notes re-faxed to [facility] with request to fax any correspondence to office. * Telephone Encounter - Lisa Palacios RN - 03/06/2022 9:12 AM EDT Pt calling checking on status of below Contacted office and call transferred documented in this encounterSelect Medical Specialty [facility] [place]09-30-2022 Miscellaneous Notes* Telephone Encounter - Eugenio Ellis MD - 03/03/2022 4:42 PM EDT See other medication auth note Please submit new prior authorization for enbrel twice a week No forms received Please obtain and complete See patient's refill message Thank you. Patient's request for medication is as follows: Requested Prescriptions Signed Prescriptions Disp Refills Etanercept (ENBREL) 50 mg/mL (1 mL) injection 24 Each 3 Sig: INJECT 1 SYRINGE UNDER THE SKIN (SUBCUTANEOUS INJECTION) TWICE A WEEK. HOLD IF ON ANTIBIOTICS OR ILL. SINGLE USE SYRINGE . REFRIGERATE Authorizing Provider: EUGENIO ELLIS Prescription(s) as above. Please process accordingly. Eugenio Ellis MD * Telephone Encounter - Dipak Johnsno MA - 03/03/2022 8:20 AM EDT Most recent Rheumatology visit: 11/11/2021 (with Eugenio Ellis) Recent Office Visits - This Specialty 11/11/2021 Ankylosing spondylitis of multiple sites in spine (HCC) Rheumatology Eugenio Ellis MD 01/19/2021 Chronic bilateral low back pain with bilateral sciatica Rheumatology Eugenio Ellis MD 07/14/2020 Ankylosing spondylitis of multiple sites in spine (HCC) Rheumatology Eugenio Ellis MD Upcoming Rheumatology Appointments - Next 365 Days Visit Type Date Time Department [facility] 08/28/2022 8:20 AM [facility] CBC: None on file in the last 6 months Vitamin D: None on file in the last 6 months LFT: None on file in the last 6 months Creatinine:None on file in the last 6 months ESR/CRP: None on file in the last 6 months Uric Acid: None on file in the last 6 months Open Standing (Multiple Instance) Lab Orders None Open Future (Single Instance) Lab Orders Expected Expires Ordered COMP METABOLIC PANEL [SQCMP] 03/04/22 12/02/22 12/02/21 Auth. provider: Eugenio Ellis MD Assoc. diagnoses: Elevated LFTs CBC [SQCBC] 03/04/22 12/02/22 12/02/21 Auth. provider: Eugenio Ellis MD Assoc. diagnoses: Anemia of chronic disease SED RATE WESTERGREN [SQWSR] 03/04/22 12/02/22 12/02/21 Auth. provider: Eugenio Ellis MD Assoc. diagnoses: Elevated sed rate, Elevated C-reactive protein (CRP) C-REACTIVE PROTEIN (CRP) [SQCRP] 03/04/22 12/02/22 12/02/21 Auth. provider: Eugenio Ellis MD Assoc. diagnoses: Elevated sed rate, Elevated C-reactive protein (CRP) VITAMIN D 25 HYDROXY [SQVITD] 03/04/22 12/02/22 12/02/21 Auth. provider: Eugenio Ellis MD Assoc. diagnoses: Vitamin D deficiency VITAMIN B12 BLOOD [SQB12] 03/04/22 12/02/22 12/02/21 Auth. provider: Eugenio Ellis MD Assoc. diagnoses: Vitamin B12 deficiency BLOOD TB SCREEN [SQINFTBP] 03/04/22 12/02/22 12/02/21 Auth. provider: Eugenio Ellis MD Assoc. diagnoses: Screening-pulmonary TB documented in this encounterSelect [facility] [place]09-20-2022 Miscellaneous Notes* Telephone Encounter - Eugenio Ellis MD - 02/21/2022 7:20 PM EDT Notify patient medication sent as requested Thank you. Patient's request for medication is as follows: Requested Prescriptions Pending Prescriptions Disp Refills amitriptyline (ELAVIL) 25 mg tablet 60 tablet 3 Sig: Take 2 tablets by mouth daily at bedtime. cyclobenzaprine (FLEXERIL) 10 mg tablet 450 tablet 3 Sig: Take 1-2tabs 3times a day gabapentin (NEURONTIN) 300 mg capsule 180 capsule 3 Si-2caps in AM, 2caps at noon and night Prescription(s) as above. Please process accordingly. Eugenio Ellis MD * Telephone Encounter - Dipak Johnson MA - 02/21/2022 8:08 AM EDT Most recent Rheumatology visit: 11/11/2021 (with Eugenio Ellis) Recent Office Visits - This Specialty 11/11/2021 Ankylosing spondylitis of multiple sites in spine ([facility]) Rheumatology Eugenio Ellis MD 01/19/2021 Chronic bilateral low back pain with bilateral sciatica Rheumatology Eugenio Ellis MD 07/14/2020 Ankylosing spondylitis of multiple sites in spine ([facility]) Rheumatology Eugenio Ellis MD Upcoming Rheumatology Appointments - Next 365 Days No appointments to display CBC: None on file in the last 6 months Vitamin D: None on file in the last 6 months LFT: None on file in the last 6 months Creatinine:None on file in the last 6 months ESR/CRP: None on file in the last 6 months Uric Acid: None on file in the last 6 months Open Standing (Multiple Instance) Lab Orders None Open Future (Single Instance) Lab Orders Expected Expires Ordered COMP METABOLIC PANEL [SQCMP] 03/04/22 12/02/22 12/02/21 Auth. provider: Eugenio Ellis MD Assoc. diagnoses: Elevated LFTs CBC [SQCBC] 03/04/22 12/02/22 12/02/21 Auth. provider: Eugenio Ellis MD Assoc. diagnoses: Anemia of chronic disease SED RATE WESTERGREN [SQWSR] 03/04/22 12/02/22 12/02/21 Auth. provider: Eugenio Ellis MD Assoc. diagnoses: Elevated sed rate, Elevated C-reactive protein (CRP) C-REACTIVE PROTEIN (CRP) [SQCRP] 03/04/22 12/02/22 12/02/21 Auth. provider: Eugenio Ellis MD Assoc. diagnoses: Elevated sed rate, Elevated C-reactive protein (CRP) VITAMIN D 25 HYDROXY [SQVITD] 03/04/22 12/02/22 12/02/21 Auth. provider: Eugenio Ellis MD Assoc. diagnoses: Vitamin D deficiency VITAMIN B12 BLOOD [SQB12] 03/04/22 12/02/22 12/02/21 Auth. provider: Eugenio Ellis MD Assoc. diagnoses: Vitamin B12 deficiency BLOOD TB SCREEN [SQINFTBP] 10/06/2512/02/22 12/02/21 Auth. provider: Eugenio Ellis MD Assoc. diagnoses: Screening-pulmonary TB documented in this encounterSelect [facility] [place]09-12-2022 Miscellaneous Notes* Telephone Encounter - Eugenio Ellis MD - 02/13/2022 7:10 PM EDT Notify patient medication sent as requested Thank you. Patient's request for medication is as follows: Requested Prescriptions Pending Prescriptions Disp Refills gabapentin (NEURONTIN) 300 mg capsule 180 capsule 3 Si-2caps in AM, 2caps at noon and night Prescription(s) as above. Please process accordingly. Eugenio Ellis MD * Telephone Encounter - Dipak Johnson MA - 02/13/2022 8:40 AM EDT Requested Prescriptions Pending Prescriptions Disp Refills gabapentin (NEURONTIN) 300 mg capsule 180 capsule 3 Si-2caps in AM, 2caps at noon and night Most recent Rheumatology visit: 11/11/2021 (with Eugenio Ellis) Recent Office Visits - This Specialty 11/11/2021 Ankylosing spondylitis of multiple sites in spine ([facility]) Rheumatology Eugenio Ellis MD 01/19/2021 Chronic bilateral low back pain with bilateral sciatica Rheumatology Eugenio Ellis MD 07/14/2020 Ankylosing spondylitis of multiple sites in spine ([facility]) Rheumatology Eugenio Ellis MD Upcoming Rheumatology Appointments - Next 365 Days No appointments to display CBC: None on file in the last 6 months Vitamin D: None on file in the last 6 months LFT: None on file in the last 6 months Creatinine:None on file in the last 6 months ESR/CRP: None on file in the last 6 months Uric Acid: None on file in the last 6 months Open Standing (Multiple Instance) Lab Orders None Open Future (Single Instance) Lab Orders Expected Expires Ordered COMP METABOLIC PANEL [SQCMP] 03/04/22 12/02/22 12/02/21 Auth. provider: Eugenio Ellis MD Assoc. diagnoses: Elevated LFTs CBC [SQCBC] 03/04/22 12/02/22 12/02/21 Auth. provider: Eugenio Ellis MD Assoc. diagnoses: Anemia of chronic disease SED RATE WESTERGREN [SQWSR] 03/04/22 12/02/22 12/02/21 Auth. provider: Eugenio Ellis MD Assoc. diagnoses: Elevated sed rate, Elevated C-reactive protein (CRP) C-REACTIVE PROTEIN (CRP) [SQCRP] 03/04/22 12/02/22 12/02/21 Auth. provider: Eugenio Ellis MD Assoc. diagnoses: Elevated sed rate, Elevated C-reactive protein (CRP) VITAMIN D 25 HYDROXY [SQVITD] 03/04/22 12/02/22 12/02/21 Auth. provider: Eugenio Ellis MD Assoc. diagnoses: Vitamin D deficiency VITAMIN B12 BLOOD [SQB12] 03/04/22 12/02/22 12/02/21 Auth. provider: Eugenio Ellis MD Assoc. diagnoses: Vitamin B12 deficiency BLOOD TB SCREEN [SQINFTBP] 03/04/22 12/02/22 12/02/21 Auth. provider: Eugenio Ellis MD Assoc. diagnoses: Screening-pulmonary TB documented in this encounterSelect [facility] [place]09-02-2022 Miscellaneous Notes* Telephone Encounter - Eugenio Ellis MD - 02/03/2022 5:39 PM EDT Notify patient medication sent as requested Thank you. Patient's request for medication is as follows: Requested Prescriptions Pending Prescriptions Disp Refills amitriptyline (ELAVIL) 25 mg tablet 60 tablet 3 Sig: Take 2 tablets by mouth daily at bedtime. cyclobenzaprine (FLEXERIL) 10 mg tablet 450 tablet 3 Sig: Take 1-2tabs 3times a day Prescription(s) as above. Please process accordingly. Eugenio Ellis MD * Telephone Encounter - Valarie Adrian MA - 02/03/2022 1:57 PM EDT Patient has 2 refills of Gabapentin at pharmacy. Most recent Rheumatology visit: 11/11/2021 (with Eugenio Ellis) Recent Office Visits - This Specialty 11/11/2021 Ankylosing spondylitis of multiple sites in spine ([facility]) Rheumatology Eugenio Ellis MD 01/19/2021 Chronic bilateral low back pain with bilateral sciatica Rheumatology Eugenio Ellis MD 07/14/2020 Ankylosing spondylitis of multiple sites in spine ([facility]) Rheumatology Eugenio Ellis MD Upcoming Rheumatology Appointments - Next 365 Days No appointments to display CBC: None on file in the last 6 months Vitamin D: None on file in the last 6 months LFT: None on file in the last 6 months Creatinine:None on file in the last 6 months ESR/CRP: None on file in the last 6 months Uric Acid: None on file in the last 6 months Open Standing (Multiple Instance) Lab Orders None Open Future (Single Instance) Lab Orders Expected Expires Ordered COMP METABOLIC PANEL [SQCMP] 03/04/22 12/02/22 12/02/21 Auth. provider: Eugenio Ellis MD Assoc. diagnoses: Elevated LFTs CBC [SQCBC] 03/04/22 12/02/22 12/02/21 Auth. provider: Eugenio Ellis MD Assoc. diagnoses: Anemia of chronic disease SED RATE WESTERGREN [SQWSR] 03/04/22 12/02/22 12/02/21 Auth. provider: Eugenio Ellis MD Assoc. diagnoses: Elevated sed rate, Elevated C-reactive protein (CRP) C-REACTIVE PROTEIN (CRP) [SQCRP] 03/04/22 12/02/22 12/02/21 Auth. provider: Euegnio Ellis MD Assoc. diagnoses: Elevated sed rate, Elevated C-reactive protein (CRP) VITAMIN D 25 HYDROXY [SQVITD] 03/04/22 12/02/22 12/02/21 Auth. provider: Eugenio Ellis MD Assoc. diagnoses: Vitamin D deficiency VITAMIN B12 BLOOD [SQB12] 03/04/22 12/02/2222 Auth. provider: Eugenio Ellis MD Assoc. diagnoses: Vitamin B12 deficiency BLOOD TB SCREEN [SQINFTBP] 03/04/22 12/02/22 12/02/21 Auth. provider: Eugenio Ellis MD Assoc. diagnoses: Screening-pulmonary TB Patient phones requesting refills as follows: Requested Prescriptions Pending Prescriptions Disp Refills amitriptyline (ELAVIL) 25 mg tablet 60 tablet 3 Sig: Take 2 tablets by mouth daily at bedtime. cyclobenzaprine (FLEXERIL) 10 mg tablet 450 tablet 3 Sig: Take 1-2tabs 3times a day Please review and advise. Valarie Adrian MA documented in this encounterSelect Medical Specialty [facility] [place]08-25-2022 Miscellaneous Notes* Telephone Encounter - Lida Key LPN - 01/26/2022 3:02 PM EDT Received fax from [facility] that no PA required at this time for Enbrel. * Telephone Encounter - Lida Key LPN - 01/23/2022 3:09 PM EDT PA for Enbrel submitted to [facility] along with chart notes. documented in this encounterSelect Medical [facility]ty [facility] [place]07-07-2022 Miscellaneous Notes* Telephone Encounter - Eugenio Ellis MD - 12/08/2021 8:45 PM EDT Notify patient medication sent as requested Thank you. Patient's request for medication is as follows: Pending Prescriptions: Disp Refills amitriptyline (ELAVIL) 25 mg tablet 60 tablet 3 Sig: Take 2 tablets by mouth daily at bedtime. CONNER: No gabapentin (NEURONTIN) 300 mg capsule 180 capsu*3 Si-2caps in AM, 2caps at noon and night CONNER: No cyclobenzaprine (FLEXERIL) 10 mg tablet 90 tablet 3 Sig: Take 1-2tabs 3times a day CONNER: No Prescription(s) as above. Please process accordingly. Eugenio Ellis MD * Telephone Encounter - Tiffanie Osei MA - 12/08/2021 7:30 AM EDT 11/11/21- last OV Patient has been identified by name and date of : Yes Pending Prescriptions Disp Refills AMITRIPTYLINE 25 MG TABLET 60 tablet 0 Sig: Take 2 tablets by mouth daily at bedtime. CONNER: No GABAPENTIN 300 MG CAPSULE 180 capsule 0 Si-2caps in AM, 2caps at noon and night CONNER: No CYCLOBENZAPRINE 10 MG TABLET 90 tablet 0 Sig: Take 1-2tabs 3times a day CONNER: No RX INSTRUCTIONS: Patient aware RX will be sent to pharmacy. No need to notify patient. Tiffanie Osei MA documented in this encounterSelect Medical [facility]ty [facility] [place]07-05-2022 Miscellaneous Notes* Telephone Encounter - Monisha Joshi MA - 12/06/2021 11:57 AM EDT Secure my chart message read by patient on 12/02/21 at 622 am Lab orders printed and mailed to patient * Telephone Encounter - Katharine Hsieh MA - 12/02/2021 8:33 AM EDT Left voice message for patient to contact office regarding below. Please ask patient where she has her lab completed. * Telephone Encounter - Eugenio Ellis MD - 12/02/2021 5:57 AM EDT Please Call patient if MyChart note not read to review results/released to My Chart if tests completed at F: normal labs and no inflammation. Continue same daily vitamin D with food. Recheck nonfasting labs in 3months (~02/2022).The orders have been placed. Please send orders quantiferon tb,cbc, cmp, esr, crp, vitamin D/b12. Please fax results to rheum office. Happy to further review and discuss at follow up visit. Continue rest of treatment plan per instructions at last office visit. Thank you. [facility] 11/18/21 borderline creat 1.03;NL rest of cmp, potassium 4.3, calcium 9.1, alkaline phosphatase 66, ast 17, alt 17, glucose 90, crp 0.5 (NL0- 0.744mg/dl), vitamin D 64.5, wbc 5.3, hgb 11.8, plts 223, esr 18 (NL0-30mm/hr); documented in this encounterSelect Medical [facility]ty [facility] [place]06-23-2022 Miscellaneous Notes* Telephone Encounter - Tiffanie Osei MA - 11/24/2021 7:36 AM EDT 11/11/21- last ov Pharmacy requesting refills as follows: Patient has been identified by name and date of : Yes Pending Prescriptions Disp Refills ENBREL 50 MG/ML (1 ML) SUBCUTANEOUS SYRINGE 24 Syringe 3 Sig: INJECT 1 SYRINGE UNDER THE SKIN (SUBCUTANEOUS INJECTION) TWICE A WEEK. HOLD IF ON ANTIBIOTICS OR ILL. SINGLE USE SYRINGE . REFRIGERATE CONNER: No RX INSTRUCTIONS: Patient aware RX will be sent to pharmacy. No need to notify patient. Tiffanie Osei MA documented in this encounterSelect Medical Specialty [facility] [place]06-10-2022 History of Present illness Narrative* Eugenio Ellis MD - 11/11/2021 8:40 AM EDT THIS IS A AMBULATORY VIRTUAL VISIT Patient has verbally agreed/consented to this virtual encounter, not originating from a related Evaluation & Management service provided within the previous 7 days. NOTE: Cannot be used if an Evaluation & Management service or procedure is planned within the next 24 hours. It required patient-provider interaction for the medical decision making as documented below. Persons Present: self (in home) Provider: (in office) VIRTUAL VISIT Follow up for Ankylosing spondylitis/CTS/raynauds/joint pain Today's visit 11/11/21:had COVID19 infection end of 2020, no antibody infusion, treated with steroids, missed enbrel x 3weeks. Still tired since infection, still has loss of taste and smell. Lost 60lbs. taking elavil, mobic, neurontin 5caps per day, flexeril, enbrel, biotin, vitamin D two gummies, vitamin b12 two gummies. 50-60% improvement from enbrel. Chronic current pain in back, hands, arms. Will see neurology. 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 Reports pain 12/11. minimal AM stiffness. No COVID, flu vaccine. Stopped advil since it gave her headaches. Taking tylenol. raynaudsstable. Feels safe at home. Has enough food, supplies and medications. Overall uncomfortable but happy with rheum care. No falls/fx/trauma/illness/oral sores/rash/hairloss/jaw pain/dysphagia/epistaxis/hemoptysis since last visit. No adverse effects with meds. No other complaints. Patient denies fever, chills, cp, dyspnea, nausea, vomiting, night sweats, scalp tenderness, visual changes, cadena, bowel/bladder changes, weight changes or other complaints. Last visit supportive care, [place] for COVID vaccines and booster, see primary care provider for depression care, increase flexeril prn, increase prn neurontin, see derm, see GI, biotene products, follow up with ortho for s/p L CTS care/possible L thumb/wrist ganglion cyst care, on cardizem per PCP/ok to increase for winter, raynauds general measures, wear heated hand glove liners, for flares take prednisone [place], f/u ENT for TMJ growth/pain, f/u with PCP/neurology for memory changes, f/u spine/PT, enbrel 50mg sq injection TWICE a week since 08/2015 since SSZ/methotrexate not tolerated, did discuss alternative biologics if high APRs, prn heat/ice/otc arthritis creams, unable to wear wrist braces due to thumb pain, correction pain recommendations per pain clinic/improved with injections, weightbearing exercises/stretching 01/19/21:no COVID vaccines yet. Has enbrel twice a week. Had steroids once since last office visit for joint pain flare. Needs elavil refilled, it helps her sleep. Taking advil. Reports pain 11/11. Minimal Am stiffness. Chronic pain in hands/back/legs. Jaw pain better. More raynauds worse with A/C. Better with gloves. More R index deviated. L 5th finger chronically flexed, surgery for finger 11/2020. Now has diabetes. Taking neurontin. Feels safe at home. Has enough food, supplies. Overall mildly uncomfortable but happy with rheum care. No falls/fx/trauma/illness/oral sores/rash/hairloss/jaw pain /dysphagia/epistaxis/hemoptysis since last visit. No adverse effects with meds. No other complaints. Patient denies fever, chills, cp, dyspnea, nausea, vomiting, night sweats, scalp tenderness, visual changes, cadena, bowel/bladder changes, weight changes or other complaints. Last visit supportive care, see primary care provider for depression care, increase flexeril prn, increase prn neurontin, see derm, see GI, biotene products, follow up with ortho for s/p L CTS care/possible L thumb/wrist ganglion cyst care, on cardizem per PCP/ok to increase for winter, raynauds general measures, wear heatedhand glove liners, for flares take prednisone ashanti, f/u ENT for TMJ growth/pain, f/u with PCP/neurology for memory changes, f/u spine/PT, enbrel 50mg sq injection TWICE a week since 08/2015 since SSZ/methotrexate not tolerated, did discuss alternative biologics if high APRs, prn heat/ice/otc arthritis creams, unable to wear wrist braces due to thumb pain, correction pain recommendations per pain clin ic/improved with injections, weightbearing exercises/stretching, 07/14/20:no response with last neck injection. Due for neck epidural soon. More hand pain. Falls occasionally due to balance. Difficulty holding phone. No response with voltaren. Had dexamethasone butkept her up at night for days, with mild response with hands. Taking neurontin 1cap in AM and noon,2caps at night has leg cramps. Taking flexeril 1 tab in AM and non, 2caps at night. Tried over the counter supplement for cramps. Feels safe at home. Has enough food, supplies and medications. TMJ stable. Oral sores better. Did not have ganglion cysts removed due fo pandemic. Reports pain -12/11. Extended AM stiffness. raynauds stable, not interested in COVID vaccine, Overall mildly uncomfortablebut happy with rheum care. No fx/trauma/illness/oral sores/rash/hairloss/jaw pain/dysphagia/epistaxis/hemoptysis since last visit. No adverse effects with meds. No other complaints. Patient denies fever, chills, cp, dyspnea, nausea, vomiting, night sweats, scalp tenderness, visual changes, cadena, bowel/bladder changes, weight changes or other complaints. Last visit supportive care, see derm, see GI, biotene products, follow up with ortho for s/p L CTS care/possible L thumb/wrist ganglion cyst care, on cardizem per PCP/ok to increase for winter, raynauds general measures, wear heated hand glove liners, for flares take prednisone ashanti, f/u ENT for TMJgrowth/pain, f/u with PCP/neurology for memory changes, f/u spine/PT, enbrel 50mg sq injection TWICE a week since 08/2015 since SSZ/methotrexate not tolerated, did discuss alternative biologics if high APRs, prn heat/ice/otc arthritis creams, unable to wear wrist braces due to thumb pain, director long term care pain recommendations per pain clinic/improved with SI injections, weightbearing exercises/stretching 01/12/20:had 3RFAs for low back pain, not sure if working/helping yet. TMJ better with prednisone. Feet/ankles R>L swelling from CCB, but stopped and no more swelling. Oral sores, worse after accidental biting. Worse raynauds white fingers. R great toe aches. Reports pain 01/11. Minimal AM stiffness. Two ganglion cyst due for removed. S/p L CTS release. Not sure if enbrel still working or if theincreased stress has made her symptoms worse. Usually stays at home. Feels safe at home. Has enoughfood, supplies and medications. Overall mildly uncomfortable but happy with rheum care. No falls/fx/trauma/illness/oral sores/rash/hairloss/jaw pain/dysphagia/epistaxis/hemoptysis since last visit. No adverse effects with meds. No other complaints. Patient denies fever, chills, cp, dyspnea, nausea,vomiting, night sweats, scalp tenderness, visual changes, cadena, bowel/bladder changes, weight changesor other complaints. Last visit supportive care, see derm, see GI, biotene products, follow up with ortho for s/p L CTS release/possible L thumb/wrist ganglion cyst care, on cardizem per PCP/ok to increase for winter, raynauds general measures, wear heated hand glove liners, for flares take prednisone ashanti, f/u ENT for TMJ growth/pain, f/u with PCP/neurology for memory changes, f/u spine/PT, enbrel 50mg sq injection TWICE a week since 08/2015 since SSZ/methotrexate not tolerated, prn heat/ice/otc arthritis creams, unable to wear wrist braces due to thumb pain, correction pain recommendations per pain clinic/improvedwith SI injections, weightbearing exercises/stretching 07/24/19;had SI low steroid injections improved bilaterally ankle swelling and made it easier for her to get up out of bed. The ankle swelling not improved with oral prednisone. On neurontin/cardizem.[place] worse when she ran out of acyclovir from neurology. Had L cts release 02/2019 with minimal response. May have L thumb/wrist ganglion cyst removal in future. Taking enbrel. Not taking vitamin b12.Tired. Reports pain 12/11. Minimal Am stiffness. Overall mildly uncomfortable but happy with rheum care.No falls/fx/trauma/illness/oral sores/rash/hairloss/jaw pain/dysphagia/epistaxis/hemoptysis since last visit. No adverse effects with meds. No other complaints. Patient denies fever, chills, cp, dyspnea, nausea, vomiting, night sweats, scalp tenderness, visual changes, cadena, bowel/bladder changes,weight changes or other complaints. Last visit supportive care, see derm, see GI, biotene products, follow up with ortho for L CTS release fall 2017, on cardizem per PCP/ok to increase for winter, raynauds general measures, wear heatedhand glove liners, for flares take prednisone ashanti, f/u ENT for TMJ growth/pain, f/u with PCP/neurology for memory changes, f/u spine/PT, enbrel 50mg sq injection TWICE a week since 08/2015 since SSZ/methotrexate not tolerated, prn heat/ice/otc arthritis creams, unable to wear wrist braces due to thumb pain, f/u with ortho for cts care, director long term care pain recommendations per pain clinic/PCP, weightbearing exercises/stretching 01/09/19:had a flares of hand pain better with prednisone. S/p L CTS 2weeks and had scar of L index fingertip scar. Still has numbness and tingling of fingers. In OT/PT now. Fingertip split when cold, on cardizem, hand warmers. 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 Back on rheum meds. Whit dots and wart on back of hands. Sees pain clinic. Same neck and low back pain. Reports pain 11/11. Minimal AM stiffness. Overall mildly uncomfortable but happy with rheum care. No falls/fx/trauma/illness/oral sores/rash/hairloss/jaw pain/dysphagia/epistaxis/hemoptysis since last visit. No adverse effects with meds. No other complaints. Patient denies fever, chills, cp, dyspnea, nausea, vomiting, night sweats, scalp tenderness, visual changes, cadena, bowel/bladder changes, weight changes or other complaints. Last visit supportive care, consult derm, consult GI, start biotene products, follow up with ortho for L CTS release fall 2018, on cardizem per PCP/ok to increase if needed, raynauds general measures, if needed wearing heated hand glove liners, for flares take prednisone ashanti, f/u ENT for TMJ growth/pain, f/u with PCP/neurology for memory changes, f/u spine/PT, enbrel 50mg sq injection TWICE a week since 08/2015 since SSZ/methotrexate not tolerated, prn heat/ice/otc arthritis creams, unable to wear wrist braces due to thumb pain, f/u with ortho for cts care, director long term care pain recommendations per pain clinic/PCP, weightbearing exercises/stretching, 01/17/18:has not missed enbrel. 2 primary care provider started BP medication cardizem. Worsening dry mouth. raynauds stable. Summertime 2018 wart like bumps on hands/forearms crawl up arms. More numbness of L>R hand, episodes on thighs and abdomen. Due L CTS release fall 2017. Occasional food getting stuck swallowing. Vomits at night/sleeping. Building playground for 2y/o grandson. Reportspain 12/11. Minimal AM stiffness. Does exercises at home. Overall mildly uncomfortable but happy with rheum care. No falls/fx/trauma/illness/oral sores/rash/hairloss/jaw pain/dysphagia/epistaxis/hemoptysis since last visit. No adverse effects with meds. No other complaints. Patient denies fever, chills, cp, dyspnea, nausea, vomiting, night sweats, scalp tenderness, visual changes, cadena, bowel/bladder changes, weight changes or other complaints. Last visit supportive care, on cardizem per PCP/ok to increase if needed, start raynauds general measures, start wearing heated hand glove liners, for flares take prednisone ashanti, f/u ENT for TMJ growth/pain, f/u with PCP/neurology for memory changes, f/u spine/PT, enbrel 50mg sq injection TWICE a week since 08/2015 since SSZ/methotrexate not tolerated, prn heat/ice/otc arthritis creams, unable to wear wrist braces due to thumb pain, f/u with ortho for cts care, director long term care pain recommendations perpain clinic/PCP, weightbearing exercises/stretching 05/10/17:reports 11/11 mid-lower back, bilateral hands/fingers, neck, constant, aching. Minimal AM stiffness. here for raynaud's ulcer on her left hand middle digit by PIP started last week. Fingers/toes painful and cold for last few months. Was on coreg, but PCP stopped med and started cardizem lastweek. Worse with band-aid. Has not tried heated gloves. Has not missed enbrel. Sees pain clinic, last injections did not help. Overall mildly uncomfortable but happy with rheum care. No falls/fx/trauma/illness/oral sores/rash/hairloss/jaw pain/dysphagia/epistaxis/hemoptysis since last visit. No adverse effects with meds. No other complaints. Patient denies fever, chills, cp, dyspnea, nausea, vomiting, night sweats, scalp tenderness, visual changes, cadena, bowel/bladder changes, weight changes or other complaints. 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 Had xrays of L wrist/hand showing prior fracture, she does not recall prior trauma. Has not missed enbrel twice a week injections. Overall mildly uncomfortable but happy with rheum care. No falls/fx/trauma/illness/oral sores/rash/hairloss/jaw pain/dysphagia/epistaxis/hemoptysis since last visit. No adverse effects with meds.No other complaints. Patient denies fever, chills, cp, dyspnea, nausea, vomiting, night sweats, scalp tenderness, visual changes, cadena, bowel/bladder changes, weight changes or other complaints. Last visit supportive care, start prednisone ashanti, f/u ENT for TMJ growth/pain, f/u with PCP/neurology for memory changes, f/u spine/PT, enbrel 50mg sq injection TWICE a week since 08/2015 since SSZ/methotrexate not tolerated, prn heat/ice/otc arthritis creams, unable to wear wrist braces due to thumb pain, f/u with ortho for cts care, correction pain recommendations per pain clinic/PCP, weightbearing exercises/stretching 09/28/16:reports 5/10 lower back, left wrist, left side of breast, constant, aching. minimal AM stiffness. Not seen since 12/2015. Had illness 07/2016 but did not see PCP. Did hold 3 enbrel injections. Afraid to hold enbrel too long due to fear of getting a bad joint pain flare. Still very tired/exhausted since illness. Joint pain better with twice a week enbrel. Had severe jaw pain, went to ED twice, not helpful. Now with right chest bone pain lately. Does well with steroids. No steroids since last OV. Overall doing ok and happy with care. No falls/fx/trauma/illness/oral sores/rash/hairloss/jaw pain/dysphagia/epistaxis/hemoptysis since last visit. No adverse effects with meds. No other complaints. Patient denies fever, chills, cp, dyspnea, nausea, vomiting, night sweats, scalp tenderness, visual changes, cadena, bowel/bladder changes, weight changes or other complaints. Last visit supportive care, f/u ENT for TMJ growth/pain, f/u with PCP/neurology for memory changes,f/u spine/PT, enbrel 50mg sq injection TWICE a week since 08/2015 since SSZ/methotrexate not tolerated, prn heat/ice/otc arthritis creams, unable to wear wrist braces due to thumb pain, f/u with orthofor cts care, correction pain recommendations per pain clinic/PCP, weightbearing exercises/stretching 12/16/15:reports had injection with pain mgt RLE sciatica better, but now has pain coming from RightSI joint. Fell last week RLE gave out, fell on buttocks. Will see pain clinic for further injections. Used to have neck pain, better now. Approved for enbrel twice a week in 08/2015. Has not missed enbrel. Low back pain 12/11. Minimal AM stiffness. TMJ better. Had eye exam last week. Blurry R eye offand on. Will f/u with eye exam again soon. Able to work 3 good hrs a day. Built screen around frontporch and back deck area by herself. Numbness and tingling of hands ok. Still has some memory changes. Unsure what vit D dose she is taking or if she completed BMD yet. Overall doing ok and happy with care. No fx/trauma/illness/oral sores/rash/hairloss/jaw pain/dysphagia/epistaxis/hemoptysis since last visit. No adverse effects with meds. No other complaints. Patient denies fever, chills, cp, dyspnea, nausea, vomiting, night sweats, scalp tenderness, visual changes, cadena, bowel/bladder changes, weight changes or other complaints. Last visit supportive care, consult ENT for TMJ growth/pain, f/u with PCP/neurology for memory changes, f/u spine/PT, scheduled for emg/xrays, enbrel 50mg sq injection once a week (increase twice a week if approved since SSZ/methotrexate not tolerated), prn heat/ice/otc arthritis creams, unable to w ear wrist braces due to thumb pain, f/u with ortho for cts care, correction pain recommendations perpain clinic/PCP, weightbearing exercises/stretching See notes 07/14/20-08/12/15 for details on prior visits 08/12/15:had EMG with mild CTS. More memory changes lately. Had good response with prednisone for 1-2weeks. Has not missed enbrel. Adverse effects with SSZ and methotrexate/no response. Reports 5/10 lower back, constant. Minimal AM stiffness. More b/l leg cramps at night. Not better with increase ofneurontin. Noticed swelling of L TMJ area/painful lump. Chronic memory changes, did not remember phone call about results (and difficulty remembering results discussed at this OV at the end of OV.) Has not seen neurology. Back pain better with injections. Overall doing ok and happy with care. No fal ls/fx/trauma/illness/oral sores/rash/hairloss/jaw pain/dysphagia/epistaxis/hemoptysis since last visit. No adverse effects with meds. No other complaints. Patient denies fever, chills, cp, dyspnea, nausea, vomiting, night sweats, scalp tenderness, visual changes, cadena, bowel/bladder changes, weight changes or other complaints. Last visit supportive care, start trial pred ashanti, consult spine/PT, check emg/xrays, enbrel 50mg sqinjection once a week, prn heat/ice/otc arthritis creams, unable to wear wrist braces due to thumb pain, f/u with ortho for cts care, director long term care pain recommendations per pain clinic/may consider increasing neurontin, weightbearing exercises/stretching 06/11/15 HPI: here for eval Moving care closer to home. Neck pain started mid 20s Back pain started Finger pain started 30years ago 2005 developed R foot numbness, spinal cord pinch, same still -dx by Lyndsay approx 5 years ago Pain c/o pain and stiffness, 11/11, tailbone constant ache, increse stiffness with sitting numbness hands when driving Sees pain clinic in [place] c/o left neck pain; states bilat arms buzzing and go numb constant 10/28/14 1. Anklylosing spondylitis / axial spondyloarthritis Sero-negative History of treatment with hydroxychloroquine and methotrexate without benefit Had unknown reaction to sulfasalazine more back days on humira 2006 Currently on Enbrel 2006-present Difficult to assess which symptoms are due to inflammatory disease and which are due to degenerative disease and / or chronic pain issues 2. Cervical spondylosis/DDD 3. Lumbar spondylosis/DDD 4. Osteoarthritis 5. Chondrocalcinosis of R knee Post-traumatic 6. Chronic pain She is being treated aggressively for this. 7. Osteoarthritis hips 05/16: R KATIA, 09/15: L KATIA 8. ? Vascular insufficiency 9. Palpitations Mild tachycardia 10. Hypertension 11. Syncope Cardiology and Neurology evaluations done 12. Nodules on fingers 13. Right wrist painMay be tendinous Appears to be benign RHEUM. ROS: Joint pain: yes -neck, low back, fingers Joint swelling: fingers Am stiffness: yes Low back pain: yes- back injections, completed PT Enthesopathy/Nettie's/heel/plantar tenderness: s/p R cts 1990s Alpecia, patchy: yes 10years Eye inflammation: contacts, 2009 R iritis (has had more than once);last eyes exam 06/2014 [facility]: dry eyes/mouth GI problems-diarrhea/bleeding/IBD/Gluten intolerence/Dysphagia: gerd Raynaud's phenomenon/digital ulcers: yes- white/red Organ inv-Serositis: childhood asthma Lung disease/ILD:childhood asthma Fatigue: yes, sleeps 8hr/night PMR/GCA ROS: negative Other ROS:The remainder of the review of systems is negative. 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 Industrial toxic exposures:no TESTS:01/19/21 high glu 172;borderline esr 20 (25);NL crp 0.6 (0.9), cbc, cmp; outside 11/09/20 high creat 1.06;NL rest of cmp, wbc 4.9, hgb 12.8, plts 265; 07/14/20 high gluc 178, crp 0.9 (0.4), esr 25 (17);low vitamin B12-498 (403);NL vitamin D 40.8, restof cbc, cmp;negative hepatitis panel, quantiferon tb; 01/12/20 normal cbc, cmp, esr 17 (25), crp 0.4, vitamin D 50.6, vitamin b12-403; 07/24/19 low vitamin b12-428;NL cbc, cmp, gluc 121, esr 25 (23), crp 0.6 (1), vitamin D 72.2; 01/09/19 high esr 23 (15), crp 1 (0.2);low vitamin b12-243;NL rest of cbc, cmp, vitamin D 71.8 (81.4), creatinine 0.87 (1.2), cmp, cbc, uric acid 4.8;negative quantiferon tb; 01/17/18 high creatinine 1.2 (0.99), vitamin D 81.4 (64.5);NL rest of cbc, cmp, esr 15, crp 0.2;negative [place] ifa, alek, quantiferon tb; 04/02/17 high potassium 5.2, creatinine 0.99 (0.9);NL rest of cbc, cmp, esr 17 (24), crp 0.2, vit D64.5; [place] [facility] 08/04/16 low wbc 4.3;NL hgb 12.6, plts 231, esr 26 (NL0-30mm/hr);cmp, creatinine 0.96, calcium, 9.1, ast 14, alt 19, crp 0.4 (NL0-0.74mg/dL), vit D 37.5;negative quantiferon tb [place] 08/2016 L wrist xrays-1. No definitive acute osseous abnormalities.2. Suspect mild soft tissue swelling in the dorsum of the wrist.3. Degenerative and old posttraumatic changes as noted above. 4. Consider MRI of the wrist to further evaluate if there remains concern for an acute process. Degenerative changes of the first carpometacarpal articulation. Well-corticated ossific densities are identified adjacent to the ulnar styloid possibly related to remote trauma. Minimal protuberance adjacent to the physeal scar of doubtful clinical significance. This could also relate to remote trauma. Well-corticated ossific densities noted adjacent to the radial styloid as well with degenerative changes of the radiocarpal joint. If there is persistent pain in the anatomical snuffbox, recommend followup films in 7-10 days 08/12/15 TMJ xrays-Both mandibular condyles show normal excursion in the open and closed mouth viewswith the left condyle only partially occupying the condyloid fossa. Mild irregularity of the articular surface of the right mandibular condyle. 06/11/15 high esr 23(26);NL crp 0.3, cbc, cmp, vit D 37; 06/11/15 cervical spine xrays-Degenerative changes of the cervical spine as detailed above.Endplate degenerative changes most pronounced at C5-6.Neural foraminal narrowing most pronounced at C5-6 and C6-7 on the right 10/28/14 NL lfts, cbc, creat 1.01, crp 0.5; 10/2014 R wrist xrays-There are postsurgical changes of previous trapezium resection. Appearance is unchanged from 10/08/09. A few small residual bone fragments are noted in the area of resection. 01/2014 negative RF 10 09/18/13 low hgb ; 08/2013 negative [facility], lupus anticoag panel;NL c3, c4; 04/2013 hip xrays-significant progression joint space loss bilaterally, disruption of the subchondral plates, enlargement of the left acetabular roof cyst and surrounding sclerosis and development ofmultiple right femoro- acetabular cysts. There also has been slight increase in facet sclerosis about the lower lumbar spine. An incidental finding is a small focus of calcification in the deep subcutaneous tissues of the proximal right thigh which may represent an area of fat necrosis and not felt to be clinically significant.IMPRESSIONSIGNIFICANT PROGRESSION OF BILATERAL DEGENERATIVE ARTHRITIS OF THE HIP JOINTS IN COMPARISON WITH AN EXAMINATION OF OVER 3 YEARS A GO. 03/2013 high esr 26; 11/2010 lumbar xrays-Lumbar spine: There is severe disk height loss at L5-S1 with endplate spurring,slightly progressed from the 2008. The remainder of the disks are relatively maintained. Small endplate spurs at L2-3 and L3-4. Multilevel mild facet joint degenerative changes. Vertebral body heights and alignment normal. 11/2010 hip xrays-Limited view of the pelvis incompletely demonstrates severe superolateral joint space narrowing of the left hip with a prominent acetabular subchondral cyst, more advanced compared to 10/08/2009. Sacroiliac joints are maintained. 11/2010 Thoracic spine xrays: There is disc height loss in the lower thoracic spine with endplate osteophytes, moderate to severe at T11-12, unchanged. Vertebral body heights are preserved. Limited view of the cervical spine again demonstrates mild C3 on C4 and C4 on C5 anterolisthesis, unchanged. Alignment is otherwise anatomic. IMPRESSION:1. NO ACUTE ABNORMALITY. 2. MARKED DEGENERATIVE DISC DISEASE L5-S1. 3. MODERATE MARKED DEGENERATIVE DISEASE T11-12.4. DEGENERATIVE ARTHRITIS IN BOTH HIPS 09/2007 negative hla b27 07/2007 negative rf, ccp, [place] ifa, [facility], dsdna<12, hepatitis panel Additional pertinent test results reviewed in medical chart PHYSICAL EXAM reviewed vitals from last visit BP 112/74 Pulse 81 Wt 205 lb 6.4 oz (93.2kg) SpO2 94% LMP 05/12/2006 General Appearance: WD/WN, NAD. Appropriate grooming. Very pleasant. Slender. Ambulates fair without assistance or assistive devices, denies SI/HI, speaks in full sentences without distress SKIN: No rash, no psoriasis, no purpura, no ulcers, no skin thickening/tightness, no telangiectasias. HEENT: No patchy alopecia, normal temporal artery pulsations, non-tender, scalp non-tender, no conjunctival injection or icterus, no oral ulcers, no thrush, normal nasal mucosa, no sinus tenderness, normal TM's. Yes contacts, fair dentition NECK: no visible thyromegaly or LAD. EXTREMITIES: Adequate pulses b/l UE; No clubbing,discoloration,sclerodactyly, periungual erythema, digital ulcers, nail pitting, edema, varicosities. MUSCULOSK: s/p b/l THR, s/p L CTS, s/p L index fingertip scar tissue removed No joint deformities, no rheumatoid nodules, calcifications or tophi. No SI tenderness, no nettie's tenderness, no heel/plantar tenderness, lumbar flexion full, 3inches neck to wall Back flexion 13inches [place]oll JTS:two cysts on L wrist Tend. JTS:lumbar back, cervical area, both hands/wrists L>R, R chest wall/bone pain, R SI joint area, fingers;decreased range of motion of neck and back due to pain;no warmth/erythema No clinical synovitis in the DIP's, PIP's, MCP's, wrists, elbows, shoulders, knees, ankles, midfoot, or toes. no knee effusions bilateral. Shoulder exam:full range of motion; no warmth/erythema Hip rom without pain LIMITATION of Motion of Joints: yes IMPRESSION/DIAGNOSIS:11/11/21 M45.0 Ankylosing spondylitis of multiple sites in spine (HCC) (primary encounter diagnosis) M54.42, M54.41, G89.29 Chronic bilateral low back pain with bilateral sciatica Z79.899 Long-term use of high-risk medication R53.82 Chronic fatigue M79.641, M79.642 Bilateral hand pain M15.3 Secondary osteoarthritis of multiple sites R20.2 Paresthesia of both hands I73.00 Raynaud's disease without gangrene M53.3, G89.29 Chronic sacroiliac joint pain E53.8 Vitamin B12 deficiency R79.89 Low vitamin D level R25.2 Leg cramps E55.9 Vitamin D deficiency 61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[place] with PMH:venous insufficiency, htn, s/p tubal ligation, palpitations, 05/2013 s/p R THR, 09/2013 s/p L THR, s/p R cts 1990s, 2009 R iritis (has had more than once), gerd, childhood asthma, uterine fibroids presents Neck pain started mid 20s, Back pain started , Finger pain started 30years ago 2005 developed R foot numbness, spinal cord pinch, same still, diagnosed with 2009, has numbnessand tingling of hands/arms with certain positions, chronic neck/back pain/limited range of motion, djd on imaging, high esr, limited neck to wall/limited spinal flexion, negative hla b27, has findings consistent with history of seronegative inflammatory arthritis/ankylosing spondylitis, repeated R eye iritis, djd, cervicalgia, lumbago, possible cts, here with L TMJ bony growth/painful, chronic memory changes, chronic back pain, R SI joint area, history of costochondritis, raynaud's symptoms, numbness of L>R hand, episodes on thighs and abdomen, more dry mouth, food getting stuck swallowing, had a flares of hand pain better with prednisone. S/p L CTS 2weeks and had scar of L index fingertip scar. Still has numbness and tingling of fingers. had SI low steroid injections improved bilaterally ankle swelling and made it easier for her to get up out of bed. The ankle swelling not improved with oral prednisone. On neurontin/cardizem. [place] worse when she ran out of acyclovir from neurology. Had L cts release 02/2019 with minimal response. Taking enbrel. had 3RFAs for low back pain, not sure if working/helping yet. TMJ better with prednisone. Feet/ankles R>L swelling from CCB, but stopped and no more swelling. raynauds white fingers/same. S/p L CTS release. no response with last neck injection. Falls occasionally due to balance. Difficulty holding phone. No response with voltaren.Had dexamethasone but kept her up at night for days, with mild response with hands. Tried over the counter supplement for cramps. Feels safe at home. Has enough food, supplies and medications. TMJ stable. Oral sores better. Did not have ganglion cysts removed due fo pandemic.elavil helps her sleep.More raynauds worse with A/C. Better with gloves. More R index deviated. L 5th finger chronically flexed, surgery for finger 11/2020. Now has diabetes. had COVID19 infection end of 2020, no antibody infusion, treated with steroids, missed enbrel x 3weeks. Still tired since infection, still has loss of taste and smell. Lost 60lbs. taking elavil, mobic, neurontin 5caps per day, flexeril, enbrel, biotin, vitamin D two gummies, vitamin b12 two gummies. 50-60% improvement from enbrel. Chronic currentpain in back, hands, arms. Will see neurology. 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 Reports pain 12/11. minimal AM stiffness. No COVID, flu vaccine. Stopped advil since it gave her headaches. Taking tylenol. Feels safe at home. Has enough food, supplies and medications. Overall uncomfortable but happy with rheum care. No falls/fx/trauma/illness/oral sores/rash/hairloss/jaw pain/dysphagia/epistaxis/hemoptysis since last visit. No adverse effects with meds. No other complaints. = supportive care, see neurology, see primary care provider for depression care, increase flexeril prn, increase prn neurontin, see derm, see GI, biotene products, follow up with ortho for s/p L CTS care/possible L thumb/wrist ganglion cyst care, on cardizem per PCP/ok to increase for winter, raynauds general measures, wear heated hand glove liners, for flares take prednisone [place], f/u ENT for TMJ growth/pain, f/u spine/PT, enbrel 50mg sq injection TWICE a week since 08/2015 since SSZ/methotrexate not tolerated, did discuss alternative biologics if high APRs, prn heat/ice/otc arthritis creams, unable to wear wrist braces due to thumb pain, correction pain recommendations per pain clinic/improved withinjections, weightbearing exercises/stretching, answered all questions and concerns-patient voiced understanding. RECOMMENDATION/PLAN: Reviewed labs/tests with patient Provided printed info 11/11/21 check cmp, cbc, esr, crp, vit D, quantiferon tb Modified11/11/21 EAGLE 0, pain 70%;01/19/21 EAGLE 0, pain 60%;07/14/20 EAGLE 0, pain 60-70%;01/12/20 EAGLE 0,pain 80%;07/24/19 EAGLE 0, pain 70%;01/09/19 EAGLE 0, pain 60%;01/17/18 EAGLE 0, pain 70%;05/10/17 EAGLE 0, [id number]%;04/02/17 EAGLE 0, pain 70%;09/28/16 EAGLE 0, pain 50-70%;12/16/15 EAGLE 0, pain 70%;08/12/15 EAGLE 0, pain 50%;06/11/15 EAGLE 0.5, pain 60%; 08/12/15 precert increase of enbrel to twice a week May apply over the counter arthritis cream (biofreeze, icy hot, asper cream, tiger balm, capsacin, etc.) to painful joints up to four times a day. Avoid contact with eyes. May take ES acetaminophen 500mg every 4-6hours for joint pain. Do not exceed 3000mg /day. Decrease stress Improve sleep May apply heat/ice 20minutes on and off to areas of pain Avoid aggravating triggers If needed, may take Calcium 1000mg daily with food in DIVIDED doses Vitamin D 4000 International Units daily with food Vitamin b12 as instructed meloxicam 15mg daily for pain Neurontin/gabapentin as instructed OFF cardizem May apply nitrobid for raynauds as instructed, may cause headaches enbrel 50mg sq injection TWICE a week Please hold enbrel if on antibiotics or if you have any signs/symptoms of infection. 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 -Vitamin D supplementation recommended, optimal dose is the dose necessary to achieve Vitamin D 25-OH blood level in range of 40-60 ng/mL. (Vitamin D supplement in international units, is the dose necessary to achieve a Vitamin D 25-OH blood level in range of 40-60 ng/mL). -Recommended daily dose of calcium: 1200mg total a day in divided doses. Calcium from dietary sources, if not sufficient, or if with h/o calcium nephrolithiasis would recommend Calcium Citrate supplement, as it is recommended to avoid caclium carbonate products, which as main dietary calcium source. The after visit summary has information on dietary calcium and instructions on reading calcium label and converting the %DV to mg. -Regular weight-bearing and muscle-strengthening exercise -Avoidance of tobacco smoking, excessive alcohol intake and excessive caffeine intake. -Fall and fracture precautions -Continued regular dental follow up visits and good dental/gum care Stressed the importance of following up with PCP and specialists for his/her chronic diseases, health, CV, and cancer screening and continued care. Will follow disease activity/progression and adjusttherapeutic regimen to disease activity and severity. Discussed medication dosage, usage, goals of therapy, and side effects. Available test results were reviewed An additional 20 minutes were spent outside of the patient visit to review records. Additional time spent with the patient to discuss their questions. Additional time spent with the patient devoted to discussing treatment strategy, planning, and implementation. Discussed findings, impression and plan with patient. Patient understands above plan; questions asked and answered. Patient agrees to plan as noted above. Total time spent on this visit, with more than 50% of time spent in video & audio (virtual) or phone or face to face with patient, in consultation, and in addition to Counseling and Coordination of Care, explanation of diagnosis, and planning of further management, I spent a total of 30 minuteson the date of the service which included preparing to see the patient, video & audio (virtual)or phone or [id number] patient care, completing clinical documentation, obtaining and/or reviewing separately obtained history, performing a medically appropriate examination, counseling and educating the patient/family/caregiver, ordering medications, tests, or procedures, communicating with other HCPs (not separately reported), independently interpreting results (not separately reported), communicating results to the patient/family/caregiver and care coordination (not separately reported) Follow up 4-6months, earlier if needed Recommendations to share with referring physician/Primary care physician : Dear Dr. Garcia : I had the pleasure of seeing your patient, . I have enclosed a copy of my clinic note withmy assessment and recommendations for this patient. Recommendations for your consideration as you deem necessary: -Continuous follow up with Primary care physician for cardiovascular disease prevention, for age appropriate cancer screening and routine health maintenance and wellness, and infection precautions and age appropriate immunization recommended. Thank you for allowing me to participate in the care of your patient. Eugenio Ellis MD I will relay my findings and recommendations to the physician requesting the consult by letter/electronic shared medical records. cc Rafaela Umana MD;Dr.Jennifer Garcia [id number] [facility] [id number] Answers for HPI/ROS submitted by the patient on 11/10/2021 Fever : No Recent Unintentional Weight Change: Yes Eye Pain: Yes Eye Redness: Yes Vision Disturbance: Yes Eye Dryness: Yes Nose Bleeds: No Sores in your Mouth: Yes Trouble Swallowing: Yes Dry Mouth: Yes Chest Pain: No Leg Swelling: No A Cough: No Shortness of Breath: Yes Pain with Breathing: No Heartburn: No Abdominal Pain: No Diarrhea: No Black Tarry Stools: No Blood in Urine: No Pain or Burning with Urination: No Joint Pain or Stiffness: Yes Muscle Weakness: Yes Muscle Aches: Yes Joint Swelling: Yes Morning Stiffness in Joints: Yes A Rash: Yes Do you have sun sensitive rashes?: Yes Skin Color Changes: Yes Hair Loss: No Nail Changes: Yes Headaches: No Numbness: Yes Memory Loss: Yes Swollen Glands: No [facility] MYCHART ADDITIONAL DEMO Question 11/10/2021 6:48 PM EDT - Filed by Patient Is this visit related to an accident, other than Workers' Compensation? No Is this visit related to Workers' Compensation? No Do you need an cable wirer? No [facility] MYCHART ZOOM MESSAGE Question 11/10/2021 6:55 PM EDT - Filed by Patient Install Zoom I have Zoom installed [facility] PROMIS CAT V2.0-PHYSICAL FUNCTION-28 DAYS Question 11/10/2021 6:56 PM EDT - Filed by Patient Does your health now limit you in doing two hours of physical labor? Quite a lot Does your health now limit you in doing yard work like raking leaves, weeding, or pushing a lawn care professional? Quite a lot Are you able to do chores such as vacuuming or yard work? With some difficulty Are you able to carry a laundry basket up a flight of stairs? Unable to do PROMIS Physical Function T-Score (range: 10 - 90) 36 (moderate dysfunction) PROMIS Physical Function Percentile (range: 0 - 1) 8 [facility] PROMIS CAT V1.0 FATIGUE-28 DAYS Question 11/10/2021 6:57 PM EDT - Filed by Patient How often did you have to push yourself to get things done because of your fatigue? Always How run-down did you feel on average? Very much How fatigued were you on average? Quite a bit I have trouble starting things because I am tired Quite a bit PROMIS Fatigue T-Score (range: 10 - 90) 69 (moderate) PROMIS Fatigue Percentile (range: 0 - 100) 3 [facility] PROMIS CAT V1.1-PAIN INTERFERENCE-28 DAYS Question 11/10/2021 6:57 PM EDT - Filed by Patient How much did pain interfere with your day to day activities? Quite a bit How much did pain interfere with your ability to participate in social activities? Quite a bit How much did pain interfere with your enjoyment of social activities? Quite a bit How much did pain interfere with work around the home? Quite a bit PROMIS Pain Interference T-Score (range: 10 - 90) (range: 10 - 90) 67 (moderate) PROMIS Pain Interference Percentile (range: 0 - 1) 4 MYC RAPID 3 Question 11/10/2021 7:00 PM EDT - Filed by Patient Dress yourself, including typing shoelaces and doing buttons? With SOME difficulty Get in and out of bed? Without ANY difficulty Lift a full cup or glass to your mouth? With SOME difficulty Walk outdoors on flat ground? Without ANY difficulty Wash and dry your entire body? With SOME difficulty Bend down to roll picker clothing from the floor? With SOME difficulty Turn regular faucets on and off? With MUCH difficulty Get in and out of a car, bus, train, or airplane? With SOME difficulty Walk tow miles or three kilometers, if you wish? With MUCH difficulty Participate in recreational activities and sports as you would like, if you wish? With MUCH difficulty Get a good night's sleep? With SOME difficulty Deal with feelings of anxiety or being nervous? With SOME difficulty Deal with feelings of depression or feeling blue? With SOME difficulty RAPID 3 Pain Level 7.5 RAPID 3 HOW DOING OVERALL 7 RAPID 3 Functional Status Score (range: 0 - 10) 3.67 PAIN LEVEL (range: 0 - 10) 7.5 Global Estimate (PTGE) (range: 0 - 10) 7 RAPID 3 CUMULATIVE SCORE (range: 0 - 30) 18.17 RAPID 3 Weighed Score (range: 0 - 10) 6.06 (High Severity (HS)) Weighed Score Percentage Change Compared to Last (range: -500 - 500) -24.25 MYC RHEUM PHQ-9 Question 11/10/2021 7:04 PM EDT - Filed by Patient Over the past two weeks, how often have you been bothered by any of the following problems? Little interest or pleasure in doing things Several days Feeling down, depressed, or hopeless Several days PHQ-2 Score (range: 0 - 6) 2 PHQ-2<3, but PHQ-9 > 14 last 12 Mo (range: 0 - 1) 1 MYC RHEUM PHQ-9 QUESTIONS 3-10 Question 11/10/2021 7:04 PM EDT - Filed by Patient Over the past two weeks, how often have you been bothered by any of the following problems? Trouble falling or staying asleep, or sleeping too much Not at all Feeling tired or having little energy Nearly every day Poor appetite or overeating Nearly every day Feeling bad about yourself - or that you are a failure or have let yourself or your family down More than half the days Trouble concentrating on things, such as reading the newspaper or watching television More than half the days Moving or speaking so slowly that other people could have noticed. Or the opposite - being so fidgety or restless that you have been moving around a lot more than usual Several days Thoughts that you would be better off , or of hurting yourself in some way Not at all If you checked off any problems, how difficult have these problems made it for you to do your work,take care of things at home, or get along with other people? Very difficult PHQ-9 Score (range: 0 - 27) 13 (Moderate Depression) Myc Phq-9 Q9 Score (range: 0 - 4) 0 Myc Phq-9 Compared To Last (range: -2 - 3) 2 (LESS < or = 5) PHQ-2 Score (range: 0 - 6) 2 MYC PROMIS 10 ADULT SHORT FORM V1.0 GLOBAL HEALTH Question 11/10/2021 7:07 PM EDT - Filed by Patient In the past 7 days In general, would you say your health is: Fair In general, would you say your quality of life is: Fair In general, how would you rate your physical health? Good In general, how would you rate your mental health, including your mood and your ability to think? Poor In general, how would you rate your satisfaction with your social activities and relationships? Fair In general, please rate how well you carry out your usual social activities and roles. (This includes activities at home, at work and in your community, and responsibilities as a parent, child, spouse, employee, friend, etc.) Poor To what extent are you able to carry out your everyday physical activities such as walking, climbing stairs, carrying groceries, or moving a chair? Mostly In the past 7 days In the past 7 days, how often have you been bothered by emotional problems such as feeling anxious,depressed or irritable? Often In the past 7 days, how would you rate your fatigue on average? Severe In the past 7 days, how would you rate your pain on average? 7 PROMIS Adult Short Form-Global Health Score (Physical) (range: 16 - 68) 37.4 (Fair) PROMIS Adult Short Form-Global Health Score (Mental) (range: 21 - 68) 31.3 (Fair) Myc Promis Gh Physical Score Compared To Last (range: -2 - 3) 1 (GREATER > or = 5) Myc Promis Gh Mental Score Compared To Last (range: -2 - 3) 3 (WITHIN +/- 5) MYC PROVIDER UNDERSTANDING CURRENT HEALTH RHEUMATOLOGY Question 11/10/2021 7:07 PM EDT - Filed by Patient These questions will help my provider understand my health Agree [facility] Instructions* Patient Instructions* Eugenio Ellis MD - 11/11/2021 8:40 AM EDT May apply over the counter arthritis cream (biofreeze, icy hot, asper cream, tiger balm, capsacin, etc.) to painful joints up to four times a day. Avoid contact with eyes. May take ES acetaminophen 500mg every 4-6hours for joint pain. Do not exceed 3000mg /day. Decrease stress Improve sleep May apply heat/ice 20minutes on and off to areas of pain Avoid aggravating triggers If needed, may take Calcium 1000mg daily with food in DIVIDED doses Vitamin D 4000 International Units daily with food Vitamin b12 as instructed meloxicam 15mg daily for pain Neurontin/gabapentin as instructed OFF cardizem May apply nitrobid for raynauds as instructed, may cause headaches enbrel 50mg sq injection TWICE a week Please hold enbrel if on antibiotics or if you have any signs/symptoms of infection. 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 Moisturizing treatments Stimulating saliva Simply sucking on sugarless candy or dried fruit slices (eg, peaches or nectarines) can stimulate the flow of saliva in many patients. [place] flavored sugarless tablets and sugar-free chewing gum may also be helpful. In some patients, medications such as pilocarpine or cevimelineare given to increase saliva production. Replacing secretions in the mouth Sipping on water throughout the day is an easy and effective treatment of dry mouth for many patients. The water does not have to be swallowed. It can be rinsed around the mouth and then spit out. If this is not effective, an artificial saliva product (spray or lozenge) may be helpful. If painful gums are a problem, a gel that relieves dry mouth (such as Oral Balance) can be helpful. Avoiding cavities Patients with SS are at increased risk for dental cavities. SS patients should perform careful dental hygiene, ideally brushing and dental flossing after eating meals and snacks. Patients should visit their dentist at least every six months. Toothpaste designed specifically for patients with dry mouth is available (eg, Biotene , Orajel ). These lack the detergents that are present in many types of toothpaste, which can irritate a dry mouth. Toothbrushes with special features that help clean between the teeth and electric toothbrushes may also help to keep the teeth clean. Patients should use a toothpaste with fluoride or a special fluoride rinse or varnish. We recommenda fluoride treatment with a dentist or dental hygienist after each cleaning. Since the dentist may not stock this treatment, patients should contact the dental office prior to the appointment. Dry eye Use of a humidifier or moist washcloth over the eyes may provide some relief for dry eyes. Most patients also use an artificial tear drop. Many different solutions are available; a clinician can recommend an appropriate choice based on an individual's pattern of dryness and fluid productionin the eye. Some patients are sensitive to the preservatives found in artificial tear preparations. If burning or itching occurs, a brand with a non-irritating preservative may be tried. Alternately, a preservative-free variety can be used. Eye drops without preservative come in small, single-dose containers that may be hard for some people with joint and/or vision problems. A prescription eye drop containing cyclosporine is also available (Restasis ). Some patients use an eye ointment at night. It is important to use only about 1/8 (3 mm) of the ointment because overuse can block the ducts and lead to a condition called blepharitis (see Blepharitis (eyelid inflammation) below). Preserving natural tears Various measures can be used to preserve a patient's own tears. Gutierrez can be fitted on the sides of glasses, helping to protect the eye from air and wind, reducing evaporation of tears. Goggles or wrap-around sunglasses serve a similar function. Another approach is a simple surgical procedure called punctal occlusion. In this procedure, an marine firefighter inserts small plugs into the tear ducts in the corner of the lower eyelid, nearest the nose, where the tears normally collect and drain into the nasal passages. By blocking this duct, thepatient's tears stay on the eye longer. There are several types of plugs, one of which does not touch the surface of the eyeball; these plugs are generally preferred. Treating other problems Fungal infections in the mouth Prescription medications are available to treat painful mouth lesions due to oral candidiasis (yeast infection); these include clotrimazole, nystatin elixir, miconazolegel, or amphotericin B lozenges. Patients who wear dentures and develop an infection should disinfect the dentures overnight while being treated. The soak should include nystatin powder or 0.2 percent chlorhexidine solution to prevent reinfection. Dry nose It is important to treat nasal dryness or stuffiness because blocked nasal passages can increase mouth breathing and worsen dry mouth. Saline nasal sprays are available in most drugstores. Other cause of nasal blockage, including allergy or sinus infection, should be treated promptly. (SeePatient information: Rhinitis). Blepharitis (eyelid inflammation) Blepharitis causes symptoms that are similar to those of dry eye(swollen lids and redness of the inside of the lids). Gently washing the skin of the eyelids can relieve blepharitis. This can be done with a warm wet washcloth and a small amount of no tears shampoo. With the eyes closed, the excess debris should be rubbed from the inner eye to the outer eye area. Dryness in other areas Patients with SS may have dryness in other areas, including the lips, skin, and the vagina. Dry lips may require petroleum jelly or lip salves. Dry skin usually improves with frequent and liberal use of a moisturizing cream or ointment. Some women with SS have difficulty with vaginal dryness, especially after menopause. There are several products specifically designed for vaginal dryness, including vaginal moisturizers, estrogen cream, vitamin E oil, and lubricants for use with sexual intercourse; a healthcare provider should be consulted for specific recommendations. GENERAL MEASURES The following general measures are helpful for all patients with Raynaud's: Avoidance of sudden cold exposure and stress reduction Use of strategies to keep the whole body warm, including dressing warmly (eg, with thermal underwear and heat conserving hat) Keeping digits warm (eg, mittens or electric hand warmers instead of gloves). Knowledge of methods to help terminate an attack of RP. These include placing the hands under warm water or in a warm place (such as the axilla), or rotating arms in a whirling or windmill pattern. Avoidance of rapidly changing temperatures, such as quickly moving from a hot environment (90 degrees F) into an air-conditioned room (70 degrees F); cool breezes, or humid cold air is also recommended. Avoidance of smoking is recommended since regular smokers are sensitized to the vasoconstrictive properties of cigarettes; the response in patients with RP does not appear to be different from that in normals [5]. Avoiding second hand smoke is prudent. Avoidance of sympathomimetic drugs (such as decongestants, amphetamines, diet pills, herbs containing ephedra) is generally recommended, but studies of the true impact of [id number] preparations (such as cold medications) have not yet been performed. Discontinuing caffeine containing beverages has also been recommended, but xanthines transiently reduce peripheral vascular resistance. Patients with vibration-induced RP should avoid use of vibrating tools. Raynaud's phenomenon often can be managed just with lifestyle modification. Certain general measures may be adopted to help prevent and terminate Raynaud s attacks. These simple measures can reduce the frequency, severity, and duration of attacks and include avoiding cold temperatures and temperature fluctuations; alleviating stress; adopting measures to keep the body warm, including adequate clothing (eg, using multiple layers, wearing thermal underwear and a warm hat); and keeping the fingerswarm (eg, by using mittens or electric hand warmers instead of gloves). Placing the hands under warm water or rotating the arms in a windmill pattern may help abort Raynaud s attacks. Both active andpassive smoking should be avoided to help minimize the vasoconstrictive effects of tobacco. Sympathomimetic drugs (eg, decongestants, stimulants, and anorexiants) should also be avoided. A calcium channel agnieszka, such as Amlodipine (Norvasc) 2.5mg tablet at night or Procardia, can be used during the winter months for intractable Raynaud's phenomenon. [facility] FACTS LAB HOURS: Lab is open 6am to 5:30pm -, open 6am -5pm on Sunday and open 8am- 12pm Sunday. Routine Lab Orders 45 days after they are entered. If your lab orders , you may be required to wait in the lab while they are reinstated FUTURE ORDERS are lab tests to be completed on the EXPECTED date. These orders 45 days afterthe expected date. STANDING ORDERS are recurring orders with an expiration date. The interval will indicate how often the test should be completed. FASTING LAB means nothing to eat or drink (except water) 10-12 hours before your blood is drawn. CT/MRI/IVP If you have one of these radiology exams ordered along with blood work, please complete the blood work at least one day prior to the scheduled exam. My Chart Schedule My Appointment enables you to view your established primary care provider's open schedule and book an appointment online in real-time. This feature is available in internal medicine, family medicine, or pediatrics at any of our [facility] locations and main campus.] [facility] [place] Miscellaneous Notes* Telephone Encounter - Valarie Adrian MA - 11/09/2021 3:22 PM EDT Duplicate request by patient. Medication was sent to pharmacy. documented in [facility] [place] Miscellaneous Notes* Telephone Encounter - Valarie Adrian MA - 11/09/2021 3:00 PM EDT Patient asked in another encounter [facility] [place], to get [facility]. [facility] with confirmation received. * Telephone Encounter - Heidi Anderson - 11/09/2021 2:12 PM EDT Called patient left VM in regards to scheduling as directed below. * Telephone Encounter - Eugenio Ellis MD - 11/09/2021 1:29 PM EDT Patient due for labs. Please assist with scheduling labs. Active since 04/2021. Temp meds already refilled Thank you. * Telephone Encounter - Heidi Anderson - 11/09/2021 11:05 AM EDT Called patient, Patient is scheduled for VV with Dr. Ellis 11/11 at 8:40 AM. Patient stated will complete labs today 11/09/21. Patient is requesting RX be sent over today as see is on her last pill. Please Advise * Telephone Encounter - Valarie Adrian MA - 11/09/2021 9:43 AM EDT Patient sent a duplicate encounter requesting refills. Will notify patient via scriblet there are lab orders filed. Please assist patient with appointment VV/ in person with Alicia or Dr. Ellis. documented in this [facility] [place] Miscellaneous Notes* Telephone Encounter - Valarie Adrian MA - 11/09/2021 2:17 PM EDT Called [facility] at [phone] and asked for lab fax number. [employer] Specialist gave fax number [phone]. Faxed orders per patient request, confirmation received. Notified patient via Blurrt. documented in this [facility] [place] Miscellaneous Notes* Telephone Encounter - Valarie Adrian MA - 11/09/2021 9:39 AM EDT Medication was requested in another encounter documented [facility] [place] Miscellaneous Notes* Telephone Encounter - Monisha Joshi MA - 11/08/2021 12:29 PM EDT Left message on voicemail for patient to call back for message below Secure my chart message sent See prescription refill encounter from 11/2121 documented in this encounter[facility] [place] Miscellaneous Notes* Telephone Encounter - Monisha Joshi MA - 11/07/2021 10:14 AM EDT Unable to proceed with PA through CMM Called Laurie Spoke with Jose HOU process via phone PA approved Dates:11/07/21 to 05/06/23 * Telephone Encounter - Monisha Joshi MA - 10/27/2021 10:27 AM EDT PA submitted through CMM Alvarez [id number] Postponed to follow up on determination documented in [facility]* Diagnosis Chronic bilateral low back pain with bilateral sciatica Leg cramps Cramp of limb [facility] this [facility] Diagnosis Ankylosing spondylitis of multiple sites in spine ([facility])- Primary Ankylosing spondylitis Chronic bilateral low back pain with bilateral sciatica Long-term use of high-risk medication Chronic fatigue Other malaise and fatigue Bilateral hand pain Pain in limb Secondary osteoarthritis of multiple sites Osteoarthrosis involving, or with mention of more than one site, but not specified as generalized, multiple sites Paresthesia of both hands Raynaud's disease without gangrene Chronic sacroiliac joint pain Disorders of sacrum Vitamin B12 deficiency Other B-complex deficiencies Low vitamin D level Leg cramps Cramp of limb Vitamin D deficiency Unspecified vitamin D deficiency documented [facility] this [facility]* Diagnosis Ankylosing spondylitis of multiple sites in spine (HCC) Ankylosing spondylitis Long-term use of high-risk medication documented [facility] this [facility] Diagnosis Ankylosing spondylitis of multiple sites in spine ([facility])- Primary Ankylosing spondylitis Elevated LFTs Other abnormal blood chemistry Anemia of chronic disease Anemia of other chronic disease Elevated sed rate Elevated sedimentation rate Elevated C-reactive protein (CRP) Vitamin D deficiency Unspecified vitamin D deficiency Vitamin B12 deficiency Other B-complex deficiencies Screening-pulmonary TB Screening examination for pulmonary tuberculosis [facility] Diagnosis Chronic bilateral low back pain with bilateral sciatica Leg cramps Cramp of limb [facility] Diagnosis Chronic bilateral low back pain with bilateral sciatica Leg cramps Cramp of limb [facility] Diagnosis Chronic bilateral low back pain with bilateral sciatica [facility] Diagnosis Ankylosing spondylitis of multiple sites in spine (HCC) Ankylosing spondylitis Long-term use of high-risk medication [facility] Diagnosis Ankylosing spondylitis of multiple sites in spine (HCC)- Primary Ankylosing spondylitis Long-term use of high-risk medication Bilateral hand pain Pain in limb Secondary osteoarthritis of multiple sites Osteoarthrosis involving, or with mention of more than one site, but not specified as generalized, multiple sites Raynaud's disease without gangrene Chronic bilateral low back pain without sciatica Pain in left wrist Pain in joint, forearm Vitamin D deficiency Unspecified vitamin D deficiency Vitamin B12 deficiency Other B-complex deficiencies Elevated sed rate Elevated sedimentation rate Elevated C-reactive protein (CRP) [facility] Diagnosis 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, multiple sites [facility] Diagnosis Chronic bilateral low back pain with bilateral sciatica [facility] Diagnosis HSV (herpes simplex virus) infection- Primary Herpes simplex without mention of complication [facility] Diagnosis HSV (herpes simplex virus) infection Herpes simplex without mention of complication [facility] Diagnosis Ankylosing spondylitis of multiple sites in spine (HCC) Ankylosing spondylitis Long-term use of high-risk medication [facility] Diagnosis Ankylosing spondylitis of multiple sites in spine ([facility])- Primary Ankylosing spondylitis [facility] Diagnosis HSV (herpes simplex virus) infection Herpes simplex without mention of complication [facility] Diagnosis Ankylosing spondylitis, unspecified site of spine (HCC) [facility] Diagnosis Ankylosing spondylitis of multiple sites in spine ([facility])- Primary Ankylosing spondylitis Elevated LFTs Other abnormal blood chemistry Anemia of chronic disease Anemia of other chronic disease Elevated sed rate Elevated sedimentation rate Elevated C-reactive protein (CRP) Vitamin D deficiency Unspecified vitamin D deficiency Vitamin B12 deficiency Other B-complex deficiencies Screening-pulmonary TB Screening examination for pulmonary tuberculosis [facility] Diagnosis Ankylosing spondylitis of multiple sites in spine ([facility]) Ankylosing spondylitis Long-term use of high-risk medication [facility] Diagnosis Leg cramps Cramp of limb [facility] Diagnosis Cervicalgia Paresthesia of both hands [facility]* Diagnosis Leg cramps Cramp of limb [facility] Diagnosis Leg cramps Cramp of limb [facility] Diagnosis Ankylosing spondylitis of multiple sites in spine ([facility]) Ankylosing spondylitis Long-term use of high-risk medication [facility] Diagnosis Chronic bilateral low back pain with bilateral sciatica [facility] Diagnosis Leg cramps Cramp of limb Chronic bilateral low back pain with bilateral sciatica [facility] Diagnosis Cervicalgia Paresthesia of both hands [facility]* Diagnosis Ankylosing spondylitis of multiple sites in spine ([facility])- Primary Ankylosing spondylitis Cervicalgia Paresthesia of both hands Long-term use of high-risk medication Leg cramps Cramp of limb Chronic bilateral low back pain with bilateral sciatica Elevated sed rate Elevated sedimentation rate Elevated C-reactive protein (CRP) Raynaud's disease without gangrene Elevated serum creatinine Other nonspecific findings on examination of blood 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, multiple sites Chronic sacroiliac joint pain Disorders of sacrum Secondary osteoarthritis of multiple sites Osteoarthrosis involving, or with mention of more than one site, but not specified as generalized, multiple sites Chronic bilateral low back pain without sciatica Vitamin B12 deficiency Other B-complex deficiencies Synovitis of right hand [facility] Diagnosis Cervicalgia Paresthesia of both hands [facility] Diagnosis Ankylosing spondylitis of multiple sites in spine (HCC)- Primary Ankylosing spondylitis [facility] Diagnosis Ankylosing spondylitis of multiple sites in spine (HCC)- Primary Ankylosing spondylitis [facility] Diagnosis Ankylosing spondylitis of multiple sites in spine (HCC) Ankylosing spondylitis [facility] Diagnosis Ankylosing spondylitis of multiple sites in spine (HCC)- Primary Ankylosing spondylitis documented in this encounter [facility] note* Diagnosis Chronic bilateral low back pain with bilateral sciatica Leg cramps Cramp of limb [facility] Diagnosis Pseudogout involving multiple joints- Primary Other disorder of calcium metabolism Vitamin B12 deficiency Other B-complex deficiencies Vitamin D deficiency Unspecified vitamin D deficiency Elevated sed rate Elevated sedimentation rate Long-term use of high-risk medication [facility] Diagnosis Ankylosing spondylitis of multiple sites in spine (HCC)- Primary Ankylosing spondylitis Bilateral hand pain Pain in limb Pseudogout involving multiple joints Other disorder 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 Hyperuricemia Other abnormal blood chemistry Leg cramps Cramp of limb Cervicalgia Paresthesia of both hands Elevated sed rate Elevated sedimentation rate Long-term use of high-risk medication Raynaud's disease without gangrene Elevated serum creatinine Other nonspecific findings on examination of blood 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, 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 Osteoarthrosis involving, or with mention of more than one site, but not specified as generalized, multiple sites Chronic sacroiliac joint pain Disorders of sacrum Chronic bilateral low back pain without sciatica Synovitis of right hand Joint stiffness of multiple sites Stiffness of joints, not elsewhere classified, multiple sites Wrist swelling, left [facility] Diagnosis Chronic bilateral low back pain with bilateral sciatica [facility] Diagnosis Chronic fatigue syndrome- Primary [facility] fatigue syndrome [facility] Diagnosis Cervicalgia Paresthesia of both hands [facility]* Diagnosis Cervical spondylosis without myelopathy- Primary Lumbosacral spondylosis without myelopathy Cervical spondylosis without myelopathy [facility] Diagnosis Cervical spondylosis without myelopathy- Primary Lumbosacral spondylosis without myelopathy Encounter for long-term opiate analgesic use Encounter for long-term (current) use of other medications Cervical spondylosis without myelopathy- Primary Cervical spondylosis without myelopathy [facility] Ankylosing spondylitis of multiple sites in spine (HCC)- Primary Ankylosing spondylitis [facility] Diagnosis Ankylosing spondylitis of multiple sites in spine (HCC)- Primary Ankylosing spondylitis Elevated LFTs Other abnormal blood chemistry Anemia of chronic disease Anemia of other chronic disease Elevated sed rate Elevated sedimentation rate Elevated C-reactive protein (CRP) Vitamin D deficiency Unspecified vitamin D deficiency Screening-pulmonary TB Screening examination for pulmonary tuberculosis [facility] Diagnosis Ankylosing spondylitis of multiple sites in spine (HCC)- Primary Ankylosing spondylitis documented in this encounter [facility] note* Diagnosis Cervical spondylosis without myelopathy- Primary Lumbosacral spondylosis without myelopathy Cervical spondylosis without myelopathy documented in this encounter [facility]* Diagnosis Encounter for long-term opiate analgesic use- Primary Encounter for long-term (current) use of other medications Lumbosacral spondylosis without myelopathy documented in this encounter [facility]* Diagnosis Lumbosacral spondylosis without myelopathy documented in this encounter [facility]* Diagnosis Lumbosacral spondylosis without myelopathy documented in this encounter [facility]* Diagnosis Localized osteoarthritis of right shoulder- Primary Encounter for long-term opiate analgesic use Encounter for long-term (current) use of other medications Localized osteoarthritis of right shoulder- Primary Localized osteoarthritis of right shoulder documented in this encounter [facility]* Diagnosis Localized primary osteoarthritis of left wrist- Primary Lumbosacral spondylosis without myelopathy Encounter for long-term opiate analgesic use Encounter for long-term (current) use of other medications Localized primary osteoarthritis of left wrist- Primary Localized primary osteoarthritis of left wrist [facility] Diagnosis Lumbosacral spondylosis without myelopathy [facility] Diagnosis Encounter for long-term opiate analgesic use- Primary Encounter for long-term (current) use of other medications Lumbosacral spondylosis without myelopathy [facility] Diagnosis Cervical spondylosis without myelopathy- Primary Lumbosacral spondylosis without myelopathy Cervical disc displacement Displacement of cervical intervertebral disc without myelopathy Neck pain Cervicalgia Primary osteoarthritis of first carpometacarpal joint of left hand Encounter for long-term opiate analgesic use Encounter for long-term (current) use of other medications Primary osteoarthritis of first carpometacarpal joint of left hand- Primary Primary osteoarthritis of first carpometacarpal joint of left hand [facility] Diagnosis Primary osteoarthritis of first carpometacarpal joint of left hand- Primary Lumbosacral spondylosis without myelopathy Primary osteoarthritis of first carpometacarpal joint of left hand [facility] Diagnosis Lumbosacral spondylosis without myelopathy documented in this encounter [facility]* Diagnosis Medicare annual wellness visit, subsequent- Primary Encounter for screening for malignant neoplasm of colon Mammogram declined documented in this encounter [facility]* Diagnosis Intervertebral disc 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- Primary Intervertebral disc 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- Primary Intervertebral disc 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 [facility] Diagnosis Cervical spondylosis without myelopathy- Primary Lumbosacral spondylosis without myelopathy Cervical spondylosis without myelopathy [facility] Diagnosis Cervical spondylosis without myelopathy- Primary Encounter for long-term opiate analgesic use Encounter for long-term (current) use of other medications Cervical spondylosis without myelopathy- Primary Cervical spondylosis without myelopathy [facility] Diagnosis Lumbosacral spondylosis without myelopathy [facility] Diagnosis Cervical spondylosis without myelopathy- Primary Encounter for long-term opiate analgesic use Encounter for long-term (current) use of other medications Cervical spondylosis without myelopathy- Primary Cervical spondylosis without myelopathy documented in this encounter [facility]* Diagnosis Lumbosacral spondylosis without myelopathy documented in this encounter [facility] Diagnosis Ankylosing spondylitis of multiple sites in spine ([facility] Primary Ankylosing spondylitis [facility] Diagnosis Osteoarthritis of carpometacarpal (CMC) joint of both thumbs- Primary Encounter for long-term opiate analgesic use Encounter for long-term (current) use of other medications Osteoarthritis of carpometacarpal (CMC) joint of both thumbs- Primary Osteoarthritis of carpometacarpal (CMC) joint of both thumbs Osteoarthritis of carpometacarpal (CMC) joint of both thumbs documented in this encounter 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 involving multiple joints Other disorder of calcium metabolism Hyperuricemia Other abnormal blood chemistry Leg cramps Cramp of limb Cervicalgia Paresthesia of both hands [facility] Ankylosing spondylitis of multiple sites in spine ([facility])- Primary [facility]ylosing spondylitis [facility] Diagnosis Osteoarthritis of carpometacarpal (CMC) joint of both thumbs- Primary Lumbosacral spondylosis without myelopathy Osteoarthritis of carpometacarpal (CMC) joint of both thumbs documented in this encounter [facility]* Diagnosis Diabetes mellitus due to underlying condition with hyperosmolarity without coma, without long-term current use of insulin ([facility])- Primary Ankylosing spondylitis of multiple sites in spine ([facility]) Primary hypertension Unspecified essential hypertension documented in this encounter 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* Diagnosis Localized osteoarthritis of right shoulder- Primary Lumbosacral spondylosis without myelopathy Localized osteoarthritis of right shoulder documented in this encounter 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 Osteoarthritis of left elbow, unspecified osteoarthritis type Chronic fatigue syndrome Osteoarthritis of left elbow, unspecified osteoarthritis type documented in this encounter [facility]* Diagnosis Idiopathic hypersomnia with long sleep time Chronic fatigue syndrome [facility] Diagnosis Localized primary osteoarthritis of carpometacarpal (CMC) joint of left wrist- Primary Lumbosacral spondylosis without myelopathy Left elbow pain Pain in joint, upper arm Encounter for long-term opiate analgesic use Encounter for long-term (current) use of other medications Localized primary osteoarthritis of carpometacarpal (CMC) joint of left wrist- Primary Left elbow pain Pain in joint, upper arm Localized primary osteoarthritis of carpometacarpal (CMC) joint of left wrist documented in this encounter [facility]* Diagnosis Ankylosing spondylitis of multiple sites in spine ([facility])- Primary Ankylosing spondylitis Steroid-induced osteoporosis Other osteoporosis Wrist swelling, left Elbow swelling, left Cervicalgia Paresthesia of both hands Blurry vision, bilateral Other specified visual disturbances Pseudogout involving multiple joints Other disorder of calcium metabolism Secondary osteoarthritis of multiple sites Osteoarthrosis involving, or with mention of more than one site, but not specified as generalized, multiple sites Chronic bilateral low back pain without sciatica Chronic sacroiliac joint pain Disorders of sacrum Long-term use of high-risk medication 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, multiple sites [facility] Diagnosis Disorder of sacrum- Primary Disorders of sacrum Encounter for long-term opiate analgesic use Encounter for long-term (current) use of other medications Lumbosacral spondylosis without myelopathy Disorder of sacrum- Primary Disorders of sacrum Disorder of sacrum Disorders of sacrum [facility] Diagnosis Dysautonomia orthostatic hypotension syndrome- Primary Other degenerative diseases of the basal ganglia [facility] N[facility]ative - Reported* Type Description Date Medical History Hypertension Medical History Ankylosing Spondilitis Medical History Osteoporosis Medical History Depression Medical History Fibromyalgia Medical History Arthritis Medical History A-fib Medical History Is on a high sodium diet Medical History Asthma as a child, no further sy mptoms Medical History anemia Medical History GERD (gastroesophageal reflux di sease) Medical History Insomnia Surgical History Tubal Ligation 1998 Surgical History (R) Thumb [facility] - Bone Shaving - Dr Teixeira 2008 Surgical History KATIA - Dr Tyson @ [facility] 2012 Surgical History KATIA - Dr Tyson @ [facility] 2013 Surgical History Left CTR-?surgeon 1986 Surgical History RFA vicet injection 05/08/2017 Surgical History bilateral hip replacement Surgical History uterine fibroids Surgical History carpal tunnel left 12/2018 Hospitalization History cardiac reasons 2001 [employer] Other InstructionsNot on filedocumented in this encounter [facility] filedocument[facility] in [facility] filedocumented in this [facility] on filedocumented in this [facility] filedocumented in this [facility] on filedocumented in this [facility] on filedocumented in this [facility] filedocumented in this [facility] filedocumented in this [facility] filedocumented in this [facility] filedocumented in this [facility] on filedocumented in this [facility] on filedocumented in this [facility]ructionsNot on filedocumented in this [facility] SystemReason [facility] (narrative)* Diagnostic Procedure Only (Routine) - New Request Specialty Diagnoses / Procedures Referred By Contac t Referred To Contact US IMAGING Diagnoses Bilateral hand pain Procedures US HAND/WRIST SYNOVIAL SCREEN LEFT US COMPL JOINT R-T W/IMAGE DOCUMENTATION Eugenio Ellis MD [address] [place] [address] [place] [address] Referral ID Status Reason Start Date Expiration Date Visits Requested Visits Authorized [id number] New Request Auto-Generat ed Referral 04/28/2025 1 1 * Diagnostic Procedure Only (Routine) - New Request Specialty Diagnoses / Procedures Referred By Contac t Referred To Contact US IMAGING Diagnoses Bilateral hand pain Procedures US HAND/WRIST SYNOVIAL SCREEN RIGHT US COMPL JOINT R-T W/IMAGE DOCUMENTATION Eugenio Ellis MD [address] [place] [address] [place] [address] Referral ID Status Reason Start Date Expiration Date Visits Requested Visits Authorized [id number] New Request Auto-Generat ed Referral 04/28/2025 1 1 * Diagnostic Procedure Only (Routine) - New Request Specialty Diagnoses / Procedures Referred By Contac t Referred To Contact XR IMAGING Diagnoses Bilateral hand pain Procedures XR HAND GENERAL 3V PA/LAT/OBL BILATERAL RADEX HAND MINIMUM 3 VIEWS Eugenio Ellis MD [address] [place] [address] [place] [address] Referral ID Status Reason Start Date Expiration Date Visits Requested Visits Authorized [id number] New Request Auto-Generat ed Referral 04/28/2025 1 1 [facility] Summary Purpose Family History No Family History Records FoundNo Family History Records FoundNo Family History Records FoundNo Family History Records FoundNo Family History Records FoundNo Family History Records FoundNo Family History Records Found Advance Directives No Advanced Directives Records FoundHealthcare Agents on File Name Relationship Healthcare Agent Antwonhi p Communication Brooks Garcia Son Health Care Agent Reason for Referral Specialty Diagnoses / Procedures Referred By Contac t Referred To Contact Diagnoses Intervertebral disc 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 Procedures Case request operating room: INJECTION BLOCK EPIDURAL CERVICAL/THORACIC: C71 joanne Rafaela Cash, PA [address], [address] [place] [id number] Referral ID Status Reason Start Date Expiration Date V isits Requested Visits Authorized [id number] Pending Review 02/12/2024 02/11/2025 1 1 Specialty Diagnoses / Procedures Referred By Contac t Referred To Contact Diagnoses Primary osteoarthritis of first carpometacarpal joint of left hand Procedures Case request operating room: INJECTION BURSA LARGE JOINT: left 1st [facility] Rafaela Cash, PA [address], [address] [place] [id number] Referral ID Status Reason Start Date Expiration Date V isits Requested Visits Authorized [id number] Pending Review 12/25/2023 12/24/2024 1 1 Specialty Diagnoses / Procedures Referred By Contac t Referred To Contact Radiology Diagnoses Neck pain Procedures MR cervical spine without contrast Rafaela Cash, PA [address], [address] [place] [id number] Referral ID Status Reason Start Date Expiration Date V isits Requested Visits Authorized [id number] Pending Review 12/25/2023 12/24/2024 1 1 Specialty Diagnoses / Procedures Referred By Contac t Referred To Contact Diagnoses Localized primary osteoarthritis of left wrist Procedures Case request operating room: INJECTION BURSA LARGE JOINT: left wrist Rafaela Cash, PA [address], [address] [place] [phone] Referral ID Status Reason Start Date Expiration Date V isits Requested Visits Authorized [id number] Pending Review 07/03/2023 07/02/2024 1 1 Specialty Diagnoses / Procedures Referred By Contac t Referred To Contact Diagnoses Localized osteoarthritis of right shoulder Procedures Case request operating room: INJECTION BURSA LARGE JOINT: right shoulder Rafaela Cash, PA [address] [place] [address] Referral ID Status Reason Start Date Expiration Date V isits Requested Visits Authorized [id number] Pending Review 11/13/2023 11/12/2024 1 1 Specialty Diagnoses / Procedures Referred By Contac t Referred To Contact Diagnoses Lumbosacral spondylosis without myelopathy Audelia Cash, LOAD MANAGER-VETERINARY ASSISTANT [address] [place] [address] Referral ID Status Reason Start Date Expiration Date Visits Re quested Visits Authorized [id number] Closed 1 1 Additional Source Comments INFORMATION SOURCE (unrecogn ized section and content) DATE CREATED AUTHOR 09/17/2021 [facility] DATE CREATED AUTHOR AUTHOR'S ORGANIZ ATION 11/23/2021 [facility] DATE CREATED AUTHOR AUTHOR'S ORGANIZ ATION 03/27/2024 [facility] DATE CREATED AUTHOR AUTHOR'S ORGANIZ ATION 10/30/2024 [facility] DATE CREATED AUTHOR AUTHOR'S ORGANIZ ATION 01/15/2025 [facility] DATE CREATED AUTHOR AUTHOR'S ORGANIZ ATION 01/17/2025 [facility] DATE CREATED AUTHOR AUTHOR'S ORGANIZ ATION 01/18/2025 [facility] Source Comments (unrecognize d section and content) In the event this informatio n is protected by the Federal Confidentiality of Alcohol and Drug Abuse Patient Records regulations: The Federal rules restrict any use of the information to criminally investigate or prosecute any alcohol or drug abuse patient.[facility] the event this information is protected by the Federal Confidentiality of Alcohol and Drug Abuse Patient Records regulations: The Federal rules restrict any use of the information to criminally investigate or prosecute any alcohol or drug abuse patient.[facility] the event this information is protected by the Federal Confidentiality of Alcohol and Drug Abuse Patient Records regulations: The Federal rules restrict any use of the information to criminally investigate or prosecute any alcohol or drug abuse patient.[facility] the event this information is protected by the Federal Confidentiality of Alcohol and Drug Abuse Patient Records regulations: The Federal rules restrict any use of the information to criminally investigate or prosecute any alcohol or drug abuse patient.[facility] the event this information is protected by the Federal Confidentiality of Alcohol and Drug Abuse Patient Records regulations: The Federal rules restrict any use of the information to criminally investigate or prosecute any alcohol or drug abuse patient.[facility] the event this information is protected by the Federal Confidentiality of Alcohol and Drug Abuse Patient Records regulations: The Federal rules restrict any use of the information to criminally investigate or prosecute any alcohol or drug abuse patient.[facility] the event this information is protected by the Federal Confidentiality of Alcohol and Drug Abuse Patient Records regulations: The Federal rules restrict any use of the information to criminally investigate or prosecute any alcohol or drug abuse patient.[facility] the event this information is protected by the Federal Confidentiality of Alcohol and Drug Abuse Patient Records regulations: The Federal rules restrict any use of the information to criminally investigate or prosecute any alcohol or drug abuse patient.[facility] the event this information is protected by the Federal Confidentiality of Alcohol and Drug Abuse Patient Records regulations: The Federal rules restrict any use of the information to criminally investigate or prosecute any alcohol or drug abuse patient.[facility] the event this information is protected by the Federal Confidentiality of Alcohol and Drug Abuse Patient Records regulations: The Federal rules restrict any use of the information to criminally investigate or prosecute any alcohol or drug abuse patient.[facility] the event this information is protected by the Federal Confidentiality of Alcohol and Drug Abuse Patient Records regulations: The Federal rules restrict any use of the information to criminally investigate or prosecute any alcohol or drug abuse patient.[facility] the event this information is protected by the Federal Confidentiality of Alcohol and Drug Abuse Patient Records regulations: The Federal rules restrict any use of the information to criminally investigate or prosecute any alcohol or drug abuse patient.[facility] the event this information is protected by the Federal Confidentiality of Alcohol and Drug Abuse Patient Records regulations: The Federal rules restrict any use of the information to criminally investigate or prosecute any alcohol or drug abuse patient.[facility] the event this information is protected by the Federal Confidentiality of Alcohol and Drug Abuse Patient Records regulations: The Federal rules restrict any use of the information to criminally investigate or prosecute any alcohol or drug abuse patient.[facility] the event this information is protected by the Federal Confidentiality of Alcohol and Drug Abuse Patient Records regulations: The Federal rules restrict any use of the information to criminally investigate or prosecute any alcohol or drug abuse patient.[facility] the event this information is protected by the Federal Confidentiality of Alcohol and Drug Abuse Patient Records regulations: The Federal rules restrict any use of the information to criminally investigate or prosecute any alcohol or drug abuse patient.[facility] the event this information is protected by the Federal Confidentiality of Alcohol and Drug Abuse Patient Records regulations: The Federal rules restrict any use of the information to criminally investigate or prosecute any alcohol or drug abuse patient.[facility] the event this information is protected by the Federal Confidentiality of Alcohol and Drug Abuse Patient Records regulations: The Federal rules restrict any use of the information to criminally investigate or prosecute any alcohol or drug abuse patient.[facility] the event this information is protected by the Federal Confidentiality of Alcohol and Drug Abuse Patient Records regulations: The Federal rules restrict any use of the information to criminally investigate or prosecute any alcohol or drug abuse patient.[facility] the event this information is protected by the Federal Confidentiality of Alcohol and Drug Abuse Patient Records regulations: The Federal rules restrict any use of the information to criminally investigate or prosecute any alcohol or drug abuse patient.[facility] the event this information is protected by the Federal Confidentiality of Alcohol and Drug Abuse Patient Records regulations: The Federal rules restrict any use of the information to criminally investigate or prosecute any alcohol or drug abuse patient.[facility] the event this information is protected by the Federal Confidentiality of Alcohol and Drug Abuse Patient Records regulations: The Federal rules restrict any use of the information to criminally investigate or prosecute any alcohol or drug abuse patient.[facility] the event this information is protected by the Federal Confidentiality of Alcohol and Drug Abuse Patient Records regulations: The Federal rules restrict any use of the information to criminally investigate or prosecute any alcohol or drug abuse patient.[facility] the event this information is protected by the Federal Confidentiality of Alcohol and Drug Abuse Patient Records regulations: The Federal rules restrict any use of the information to criminally investigate or prosecute any alcohol or drug abuse patient.[facility] the event this information is protected by the Federal Confidentiality of Alcohol and Drug Abuse Patient Records regulations: The Federal rules restrict any use of the information to criminally investigate or prosecute any alcohol or drug abuse patient.[facility] the event this information is protected by the Federal Confidentiality of Alcohol and Drug Abuse Patient Records regulations: The Federal rules restrict any use of the information to criminally investigate or prosecute any alcohol or drug abuse patient.[facility] the event this information is protected by the Federal Confidentiality of Alcohol and Drug Abuse Patient Records regulations: The Federal rules restrict any use of the information to criminally investigate or prosecute any alcohol or drug abuse patient.[facility] the event this information is protected by the Federal Confidentiality of Alcohol and Drug Abuse Patient Records regulations: The Federal rules restrict any use of the information to criminally investigate or prosecute any alcohol or drug abuse patient.[facility] the event this information is protected by the Federal Confidentiality of Alcohol and Drug Abuse Patient Records regulations: The Federal rules restrict any use of the information to criminally investigate or prosecute any alcohol or drug abuse patient.[facility] the event this information is protected by the Federal Confidentiality of Alcohol and Drug Abuse Patient Records regulations: The Federal rules restrict any use of the information to criminally investigate or prosecute any alcohol or drug abuse patient.[facility] the event this information is protected by the Federal Confidentiality of Alcohol and Drug Abuse Patient Records regulations: The Federal rules restrict any use of the information to criminally investigate or prosecute any alcohol or drug abuse patient.[facility] the event this information is protected by the Federal Confidentiality of Alcohol and Drug Abuse Patient Records regulations: The Federal rules restrict any use of the information to criminally investigate or prosecute any alcohol or drug abuse patient.[facility] the event this information is protected by the Federal Confidentiality of Alcohol and Drug Abuse Patient Records regulations: The Federal rules restrict any use of the information to criminally investigate or prosecute any alcohol or drug abuse patient.[facility] the event this information is protected by the Federal Confidentiality of Alcohol and Drug Abuse Patient Records regulations: The Federal rules restrict any use of the information to criminally investigate or prosecute any alcohol or drug abuse patient.[facility] the event this information is protected by the Federal Confidentiality of Alcohol and Drug Abuse Patient Records regulations: The Federal rules restrict any use of the information to criminally investigate or prosecute any alcohol or drug abuse patient.[facility] the event this information is protected by the Federal Confidentiality of Alcohol and Drug Abuse Patient Records regulations: The Federal rules restrict any use of the information to criminally investigate or prosecute any alcohol or drug abuse patient.[facility] the event this information is protected by the Federal Confidentiality of Alcohol and Drug Abuse Patient Records regulations: The Federal rules restrict any use of the information to criminally investigate or prosecute any alcohol or drug abuse patient.[facility] [place]In the event this information is protected by the Federal Confidentiality of Alcohol and Drug Abuse Patient Records regulations: The Federal rules restrict any use of the information to criminally investigate or prosecute any alcohol or drug abuse patient.[facility] [place]In the event this information is protected by the Federal Confidentiality of Alcohol and Drug Abuse Patient Records regulations: The Federal rules restrict any use of the information to criminally investigate or prosecute any alcohol or drug abuse patient.[facility] [place]In the event this information is protected by the Federal Confidentiality of Alcohol and Drug Abuse Patient Records regulations: The Federal rules restrict any use of the information to criminally investigate or prosecute any alcohol or drug abuse patient.[facility] [place]In the event this information is protected by the Federal Confidentiality of Alcohol and Drug Abuse Patient Records regulations: The Federal rules restrict any use of the information to criminally investigate or prosecute any alcohol or drug abuse patient.[facility] [place]In the event this information is protected by the Federal Confidentiality of Alcohol and Drug Abuse Patient Records regulations: The Federal rules restrict any use of the information to criminally investigate or prosecute any alcohol or drug abuse patient.[facility] [place]In the event this information is protected by the Federal Confidentiality of Alcohol and Drug Abuse Patient Records regulations: The Federal rules restrict any use of the information to criminally investigate or prosecute any alcohol or drug abuse patient.[facility] [place]In the event this information is protected by the Federal Confidentiality of Alcohol and Drug Abuse Patient Records regulations: The Federal rules restrict any use of the information to criminally investigate or prosecute any alcohol or drug abuse patient.[facility] [place]In the event this information is protected by the Federal Confidentiality of Alcohol and Drug Abuse Patient Records regulations: The Federal rules restrict any use of the information to criminally investigate or prosecute any alcohol or drug abuse patient.[facility] [place]In the event this information is protected by the Federal Confidentiality of Alcohol and Drug Abuse Patient Records regulations: The Federal rules restrict any use of the information to criminally investigate or prosecute any alcohol or drug abuse patient.[facility] [place]In the event this information is protected by the Federal Confidentiality of Alcohol and Drug Abuse Patient Records regulations: The Federal rules restrict any use of the information to criminally investigate or prosecute any alcohol or drug abuse patient.[facility] [place]In the event this information is protected by the Federal Confidentiality of Alcohol and Drug Abuse Patient Records regulations: The Federal rules restrict any use of the information to criminally investigate or prosecute any alcohol or drug abuse patient.[facility] [place]In the event this information is protected by the Federal Confidentiality of Alcohol and Drug Abuse Patient Records regulations: The Federal rules restrict any use of the information to criminally investigate or prosecute any alcohol or drug abuse patient.[facility] [place]In the event this information is protected by the Federal Confidentiality of Alcohol and Drug Abuse Patient Records regulations: The Federal rules restrict any use of the information to criminally investigate or prosecute any alcohol or drug abuse patient.[facility] [place]In the event this information is protected by the Federal Confidentiality of Alcohol and Drug Abuse Patient Records regulations: The Federal rules restrict any use of the information to criminally investigate or prosecute any alcohol or drug abuse patient.[facility] [place]In the event this information is protected by the Federal Confidentiality of Alcohol and Drug Abuse Patient Records regulations: The Federal rules restrict any use of the information to criminally investigate or prosecute any alcohol or drug abuse patient.[facility] [place]In the event this information is protected by the Federal Confidentiality of Alcohol and Drug Abuse Patient Records regulations: The Federal rules restrict any use of the information to criminally investigate or prosecute any alcohol or drug abuse patient.[facility] [place]In the event this information is protected by the Federal Confidentiality of Alcohol and Drug Abuse Patient Records regulations: The Federal rules restrict any use of the information to criminally investigate or prosecute any alcohol or drug abuse patient.[facility] [place]In the event this information is protected by the Federal Confidentiality of Alcohol and Drug Abuse Patient Records regulations: The Federal rules restrict any use of the information to criminally investigate or prosecute any alcohol or drug abuse patient.[facility] [place]In the event this information is protected by the Federal Confidentiality of Alcohol and Drug Abuse Patient Records regulations: The Federal rules restrict any use of the information to criminally investigate or prosecute any alcohol or drug abuse patient.[facility] [place]In the event this information is protected by the Federal Confidentiality of Alcohol and Drug Abuse Patient Records regulations: The Federal rules restrict any use of the information to criminally investigate or prosecute any alcohol or drug abuse patient.[facility] [place]In the event this information is protected by the Federal Confidentiality of Alcohol and Drug Abuse Patient Records regulations: The Federal rules restrict any use of the information to criminally investigate or prosecute any alcohol or drug abuse patient.[facility] [place]In the event this information is protected by the Federal Confidentiality of Alcohol and Drug Abuse Patient Records regulations: The Federal rules restrict any use of the information to criminally investigate or prosecute any alcohol or drug abuse patient.[facility] [place]In the event this information is protected by the Federal Confidentiality of Alcohol and Drug Abuse Patient Records regulations: The Federal rules restrict any use of the information to criminally investigate or prosecute any alcohol or drug abuse patient.[facility] [place]In the event this information is protected by the Federal Confidentiality of Alcohol and Drug Abuse Patient Records regulations: The Federal rules restrict any use of the information to criminally investigate or prosecute any alcohol or drug abuse patient.[facility] [place]In the event this information is protected by the Federal Confidentiality of Alcohol and Drug Abuse Patient Records regulations: The Federal rules restrict any use of the information to criminally investigate or prosecute any alcohol or drug abuse patient.[facility] [place]In the event this information is protected by the Federal Confidentiality of Alcohol and Drug Abuse Patient Records regulations: The Federal rules restrict any use of the information to criminally investigate or prosecute any alcohol or drug abuse patient.[facility] [place]In the event this information is protected by the Federal Confidentiality of Alcohol and Drug Abuse Patient Records regulations: The Federal rules restrict any use of the information to criminally investigate or prosecute any alcohol or drug abuse patient.[facility] [place]In the event this information is protected by the Federal Confidentiality of Alcohol and Drug Abuse Patient Records regulations: The Federal rules restrict any use of the information to criminally investigate or prosecute any alcohol or drug abuse patient.[facility] [place]In the event this information is protected by the Federal Confidentiality of Alcohol and Drug Abuse Patient Records regulations: The Federal rules restrict any use of the information to criminally investigate or prosecute any alcohol or drug abuse patient.[facility] [place]In the event this information is protected by the Federal Confidentiality of Alcohol and Drug Abuse Patient Records regulations: The Federal rules restrict any use of the information to criminally investigate or prosecute any alcohol or drug abuse patient.[facility] [place]In the event this information is protected by the Federal Confidentiality of Alcohol and Drug Abuse Patient Records regulations: The Federal rules restrict any use of the information to criminally investigate or prosecute any alcohol or drug abuse patient.[facility] [place]In the event this information is protected by the Federal Confidentiality of Alcohol and Drug Abuse Patient Records regulations: The Federal rules restrict any use of the information to criminally investigate or prosecute any alcohol or drug abuse patient.[facility] [place]In the event this information is protected by the Federal Confidentiality of Alcohol and Drug Abuse Patient Records regulations: The Federal rules restrict any use of the information to criminally investigate or prosecute any alcohol or drug abuse patient.[facility] [place]In the event this information is protected by the Federal Confidentiality of Alcohol and Drug Abuse Patient Records regulations: The Federal rules restrict any use of the information to criminally investigate or prosecute any alcohol or drug abuse patient.[facility] [place]In the event this information is protected by the Federal Confidentiality of Alcohol and Drug Abuse Patient Records regulations: The Federal rules restrict any use of the information to criminally investigate or prosecute any alcohol or drug abuse patient.[facility] [place]In the event this information is protected by the Federal Confidentiality of Alcohol and Drug Abuse Patient Records regulations: The Federal rules restrict any use of the information to criminally investigate or prosecute any alcohol or drug abuse patient.[facility] [place]In the event this information is protected by the Federal Confidentiality of Alcohol and Drug Abuse Patient Records regulations: The Federal rules restrict any use of the information to criminally investigate or prosecute any alcohol or drug abuse patient.[facility] [place]In the event this information is protected by the Federal Confidentiality of Alcohol and Drug Abuse Patient Records regulations: The Federal rules restrict any use of the information to criminally investigate or prosecute any alcohol or drug abuse patient.[facility] [place]In the event this information is protected by the Federal Confidentiality of Alcohol and Drug Abuse Patient Records regulations: The Federal rules restrict any use of the information to criminally investigate or prosecute any alcohol or drug abuse patient.[facility] [place]In the event this information is protected by the Federal Confidentiality of Alcohol and Drug Abuse Patient Records regulations: The Federal rules restrict any use of the information to criminally investigate or prosecute any alcohol or drug abuse patient.[facility] [place]In the event this information is protected by the Federal Confidentiality of Alcohol and Drug Abuse Patient Records regulations: The Federal rules restrict any use of the information to criminally investigate or prosecute any alcohol or drug abuse patient.[facility] [place]In the event this information is protected by the Federal Confidentiality of Alcohol and Drug Abuse Patient Records regulations: The Federal rules restrict any use of the information to criminally investigate or prosecute any alcohol or drug abuse patient.[facility] [place]In the event this information is protected by the Federal Confidentiality of Alcohol and Drug Abuse Patient Records regulations: The Federal rules restrict any use of the information to criminally investigate or prosecute any alcohol or drug abuse patient.[facility] [place]In the event this information is protected by the Federal Confidentiality of Alcohol and Drug Abuse Patient Records regulations: The Federal rules restrict any use of the information to criminally investigate or prosecute any alcohol or drug abuse patient.[facility] [place]In the event this information is protected by the Federal Confidentiality of Alcohol and Drug Abuse Patient Records regulations: The Federal rules restrict any use of the information to criminally investigate or prosecute any alcohol or drug abuse patient.[facility] [place]In the event this information is protected by the Federal Confidentiality of Alcohol and Drug Abuse Patient Records regulations: The Federal rules restrict any use of the information to criminally investigate or prosecute any alcohol or drug abuse patient.[facility] [place]In the event this information is protected by the Federal Confidentiality of Alcohol and Drug Abuse Patient Records regulations: The Federal rules restrict any use of the information to criminally investigate or prosecute any alcohol or drug abuse patient.[facility] [place]In the event this information is protected by the Federal Confidentiality of Alcohol and Drug Abuse Patient Records regulations: The Federal rules restrict any use of the information to criminally investigate or prosecute any alcohol or drug abuse patient.[facility] [place]In the event this information is protected by the Federal Confidentiality of Alcohol and Drug Abuse Patient Records regulations: The Federal rules restrict any use of the information to criminally investigate or prosecute any alcohol or drug abuse patient.[facility] [place]In the event this information is protected by the Federal Confidentiality of Alcohol and Drug Abuse Patient Records regulations: The Federal rules restrict any use of the information to criminally investigate or prosecute any alcohol or drug abuse patient.[facility] [place]In the event this information is protected by the Federal Confidentiality of Alcohol and Drug Abuse Patient Records regulations: The Federal rules restrict any use of the information to criminally investigate or prosecute any alcohol or drug abuse patient.[facility] [place]In the event this information is protected by the Federal Confidentiality of Alcohol and Drug Abuse Patient Records regulations: The Federal rules restrict any use of the information to criminally investigate or prosecute any alcohol or drug abuse patient.[facility] [place]In the event this information is protected by the Federal Confidentiality of Alcohol and Drug Abuse Patient Records regulations: The Federal rules restrict any use of the information to criminally investigate or prosecute any alcohol or drug abuse patient.[facility] [place]In the event this information is protected by the Federal Confidentiality of Alcohol and Drug Abuse Patient Records regulations: The Federal rules restrict any use of the information to criminally investigate or prosecute any alcohol or drug abuse patient.[facility] [place]In the event this information is protected by the Federal Confidentiality of Alcohol and Drug Abuse Patient Records regulations: The Federal rules restrict any use of the information to criminally investigate or prosecute any alcohol or drug abuse patient.[facility] [place]In the event this information is protected by the Federal Confidentiality of Alcohol and Drug Abuse Patient Records regulations: The Federal rules restrict any use of the information to criminally investigate or prosecute any alcohol or drug abuse patient.[facility] [place]In the event this information is protected by the Federal Confidentiality of Alcohol and Drug Abuse Patient Records regulations: The Federal rules restrict any use of the information to criminally investigate or prosecute any alcohol or drug abuse patient.[facility] [place]In the event this information is protected by the Federal Confidentiality of Alcohol and Drug Abuse Patient Records regulations: The Federal rules restrict any use of the information to criminally investigate or prosecute any alcohol or drug abuse patient.[facility] [place]In the event this information is protected by the Federal Confidentiality of Alcohol and Drug Abuse Patient Records regulations: The Federal rules restrict any use of the information to criminally investigate or prosecute any alcohol or drug abuse patient.[facility] [place]In the event this information is protected by the Federal Confidentiality of Alcohol and Drug Abuse Patient Records regulations: The Federal rules restrict any use of the information to criminally investigate or prosecute any alcohol or drug abuse patient.[facility] [place]In the event this information is protected by the Federal Confidentiality of Alcohol and Drug Abuse Patient Records regulations: The Federal rules restrict any use of the information to criminally investigate or prosecute any alcohol or drug abuse patient.[facility] [place] Reason for Visit (unrecogniz ed section and content) Reason Comments Insurance Authorization [employer] Reason Onset Date Comments Refill Request 11/09/2021 Reason Comments Arthritis Reason Comments Refill Request Reason Comments Results Reason Onset Date Comments Refill Request 12/08/2021 Reason Comments Medication Authorization [employer] Reason Onset Date Comments Refill Request 02/03/2022 Reason Onset Date Comments Refill Request 02/12/2022 Reason Onset Date Comments Refill Request 02/20/2022 Reason Onset Date Comments Refill Request 03/03/2022 Reason Comments Lab Orders Reason Comments Results labs-[facility] Reason Comments Follow Up Pain Ongoing generalized pain. Reason Onset Date Comments Refill Request 11/01/2022 Reason Onset Date Comments Refill Request 01/17/2023 Reason Comments Medication Authorization Reason Onset Date Comments SPP Inflammatory Conditions - Treatment Referral 02/14/2023 [employer] Insurance Authorization 02/14/2023 [place] submi ssion pending Reason Onset Date Comments Refill Request 02/17/2023 Reason Comments Medication Request Reason Comments Results Lab [facility] Reason Comments Results [facility] Reason Comments Medication Authorization cyclobenzaprine Reason Onset Date Comments Refill Request 09/20/2023 Reason Comments Medication Authorization [employer] Reason Onset Date Comments Refill Request 12/24/2023 Reason Onset Date Comments Refill Request 12/22/2023 Reason Comments Results Labs Orders Reason Onset Date Comments Refill Request 01/10/2024 Reason Onset Date Comments Refill Request 01/11/2024 Reason Comments Pain bilat hips, neck , r ight hands, left wrist, right shoulder -flare X 3 weeks, ache 7/10. Reason Onset Date Comments SPP Inflammatory Conditions - No-go 01/23/2024 [facility] Insurance Authorization 01/23/2024 [place] appro kelsea Reason Onset Date Comments Refill Request 01/24/2024 Reason Onset Date Comments Refill Request 02/10/2024 Reason Comments anknylosiing spondylitis Reason Comments Appointment Reason Onset Date Comments Refill Request 04/06/2024 Reason Onset Date Comments Med Refill 04/24/2024 Reason Onset Date Comments Med Refill 06/05/2024 Reason Comments Back Pain Neck Pain Wrist Pain Reason Onset Date Comments SPP Inflammatory Conditions - Treatment Referral 07/02/2024 [facility] Insurance Authorization 07/02/2024 [place] submi ssion pending Reason Onset Date Comments Med Refill 07/07/2024 Reason Comments Back Pain Neck Pain Reason Onset Date Comments Med Refill 10/03/2023 Reason Onset Date Comments Med Refill 11/06/2023 Reason Comments Back Pain Neck Pain Reason Comments Back Pain Reason Onset Date Comments Med Refill 11/30/2023 Reason Comments Extremity Pain Back Pain Reason Comments Shoulder Pain Reason Onset Date Comments Med Refill 01/02/2024 Reason Onset Date Comments Med Refill 09/06/2023 Reason Onset Date Comments Med Refill 02/01/2024 Reason Onset Date Comments Med Refill 03/04/2024 Reason Comments Medicare [facility] Reason Comments Neck Pain Shoulder Pain Extremity Pain Reason Onset Date Comments Med Refill 03/21/2024 Reason Comments Back Pain Neck Pain Wrist Pain oswaldo Reason Onset Date Comments Med Refill 05/06/2024 Reason Comments Neck Pain Back Pain Reason Onset Date Comments Med Refill 08/01/2024 Reason Onset Date Comments SPP Inflammatory Conditions - Medication Refill 08/04/2024 [facility] Reason Comments Neck Pain Hand Pain Back Pain Reason Onset Date Comments Refill Request 08/22/2024 Reason Onset Date Comments SPP Inflammatory Conditions - Medication Refill 08/29/2024 [facility] Reason Onset Date Comments Med Refill 09/02/2024 Reason Comments Follow-up Reason Comments Results [facility] Orders Reason Comments Results [facility] Reason Onset Date Comments Refill Request 09/23/2024 Reason Comments Extremity Pain Reason Onset Date Comments Med Refill 10/02/2024 Reason Onset Date Comments Refill Request 10/11/2024 Reason Onset Date Comments Med Refill 11/04/2024 Reason Onset Date Comments Refill Request 11/11/2024 Reason Onset Date Comments Refill Request 11/13/2024 Reason Onset Date Comments SPP Inflammatory Conditions - Medication Refill 11/21/2024 [facility] Reason Comments Results [facility] Orders Reason Comments Pain Ongoing left wrist p ain. Reason Onset Date Comments Med Refill 12/08/2024 Reason Onset Date Comments SPP Inflammatory Conditions - Medication Refill 12/19/2024 [facility] Reason Comments Neck Pain Back Pain Wrist Pain Left 1st cmc Reason Onset Date Comments Med Refill 01/13/2025 Reason Onset Date Comments SPP Inflammatory Conditions - Medication Refill 01/15/2025 [facility] Care Teams (unrecognized sec tion and content) Training Mgr Relationship Specialty Start Date End Date Katie Garcia, DO PCP - General 07/03/07 Training Mgr Relationship Specialty Start Date End Date Katie Garcia, DO PCP - General 07/03/07 Training Mgr Relationship Specialty Start Date End Date Katie Garcia, DO PCP - General 07/03/07 Training Mgr Relationship Specialty Start Date End Date Katie Garcia, DO PCP - General 07/03/07 Training Mgr Relationship Specialty Start Date End Date Katie Garcia, DO PCP - General 07/03/07 Training Mgr Relationship Specialty Start Date End Date Katie Garcia, DO PCP - General 07/03/07 Training Mgr Relationship Specialty Start Date End Date Katie Garcia, DO PCP - General 07/03/07 Training Mgr Relationship Specialty Start Date End Date Katie Garcia, DO PCP - General 07/03/07 Training Mgr Relationship Specialty Start Date End Date Katie Garcia, DO PCP - General 07/03/07 Training Mgr Relationship Specialty Start Date End Date Katie Garcia, DO PCP - General 07/03/07 Training Mgr Relationship Specialty Start Date End Date TosinfilippoKatie, DO PCP - General 07/03/07 Training Mgr Relationship Specialty Start Date End Date TosinfilippoKatie, DO PCP - General 07/03/07 Training Mgr Relationship Specialty Start Date End Date TosinfilippoKatie, DO PCP - General 07/03/07 Training Mgr Relationship Specialty Start Date End Date Katie Garcia, DO PCP - General 07/03/07 Training Mgr Relationship Specialty Start Date End Date Katie Garcia, DO PCP - General 07/03/07 Training Mgr Relationship Specialty Start Date End Date TosinfilippoKatie DO PCP - General 07/03/07 Training Mgr Relationship Specialty Start Date End Date TosinfilippoKatie DO PCP - General 07/03/07 Training Mgr Relationship Specialty Start Date End Date Youngkrishna Katie D, DO PCP - General 07/03/07 Training Mgr Relationship Specialty Start Date End Date Youngkrishna Katie Quintero DO PCP - General 07/03/07 Training Mgr Relationship Specialty Start Date End Date Katie Garcia PCP - General 07/03/07 Training Mgr Relationship Specialty Start Date End Date Katie Garcia DO PCP - General 07/03/07 Training Mgr Relationship Specialty Start Date End Date Tosinfilippo Katie D, PCP - General 07/03/07 Training Mgr Relationship Specialty Start Date End Date Tosinfilippo Katie D, PCP - General 07/03/07 Training Mgr Relationship Specialty Start Date End Date Tosinfilippo Katie D, PCP - General 07/03/07 Training Mgr Relationship Specialty Start Date End Date TosinfilippoKatie PCP - General 07/03/07 Training Mgr Relationship Specialty Start Date End Date Tosinfilippo Katie D, DO PCP - General 07/03/07 Training Mgr Relationship Specialty Start Date End Date Youngkrishna Katie Ingrid PCP - General 07/03/07 Training Mgr Relationship Specialty Start Date End Date Youngkrishna Katie Quintero PCP - General 07/03/07 Training Mgr Relationship Specialty Start Date End Date Katie Garcia PCP - General 07/03/07 Training Mgr Relationship Specialty Start Date End Date TosinfilippoKatie PCP - General 07/03/07 Training Mgr Relationship Specialty Start Date End Date TosinfilippoKatie Ingrid PCP - General 07/03/07 Training Mgr Relationship Specialty Start Date End Date TosinfilippoKatie PCP - General 07/03/07 Training Mgr Relationship Specialty Start Date End Date Katie Garcia PCP - General 07/03/07 Training Mgr Relationship Specialty Start Date End Date TosinfilippoKatie PCP - General 07/03/07 Training Mgr Relationship Specialty Start Date End Date TosinfilippoTiffanieKatie Ingrid PCP - General 07/03/07 Training Mgr Relationship Specialty Start Date End Date YoungKatie keller DO PCP - General 07/03/07 Training Mgr Relationship Specialty Start Date End Date YoungKatie keller DO PCP - General 07/03/07 Training Mgr Relationship Specialty Start Date End Date Katie Garcia DO PCP - General 07/03/07 Training Mgr Relationship Specialty Start Date End Date Katie Garcia DO PCP - General 07/03/07 Training Mgr Relationship Specialty Start Date End Date Katie Garcia PCP - General 07/03/07 Training Mgr Relationship Specialty Start Date End Date Katie Garcia PCP - General 07/03/07 Training Mgr Relationship Specialty Start Date End Date Katie Garcia PCP - General Family Medicine 11/13/22 Training Mgr Relationship Specialty Start Date End Date Katie Garcia DO PCP - General 07/03/07 Training Mgr Relationship Specialty Start Date End Date Tosinfilippo Katie Quintero DO PCP - General Family Medicine 11/13/22 04/24/24 Training Mgr Relationship Specialty Start Date End Date Tosinfilippo Katie IngridDO PCP - General Family Medicine 11/13/22 04/24/24 Training Mgr Relationship Specialty Start Date End Date Katie Garcia PCP - General 07/03/07 Training Mgr Relationship Specialty Start Date End Date Parish Dean, LOAD MANAGER-VETERINARY ASSISTANT [address] [place] [address], [facility] [place] [phone] PCP - General Nurse Practitioner 02/11/24 Training Mgr Relationship Specialty Start Date End Date Parish Dean APRN-[facility] [address] [place] [address], [facility] [place] [phone] PCP - General Nurse Practitioner 02/11/24 Training Mgr Relationship Specialty Start Date End Date Parish Dean APRN-[facility] [address] [place] [address], [place] [phone] PCP - General Nurse Practitioner 06/12/24 Training Mgr Relationship Specialty Start Date End Date Katie Garcia DO PCP - General 07/03/07 Training Mgr Relationship Specialty Start Date End Date Katie Garcia DO PCP - General 07/03/07 Training Mgr Relationship Specialty Start Date End Date Parish Dean APRN-[facility] [address] [place] [address] [place] [phone] PCP - General Nurse Practitioner 06/12/24 Training Mgr Relationship Specialty Start Date End Date Katie Garcia DO [address] [place] [address] PCP - General Family Medicine 11/24/16 Training Mgr Relationship Specialty Start Date End Date Katie Garcia DO [address] [place] [address] PCP - General Family Medicine 11/24/16 Training Mgr Relationship Specialty Start Date End Date Katie Garcia, DO [address] [place] [address] PCP - General Family Medicine 11/24/16 Training Mgr Relationship Specialty Start Date End Date Katie Garcia, DO [address] [place] [address] PCP - General Family Medicine 11/24/16 Training Mgr Relationship Specialty Start Date End Date Katie Garcia, DO [address] [place] [address] PCP - General Family Medicine 11/24/16 Training Mgr Relationship Specialty Start Date End Date Katie Garcia, DO [address] [place] [address] PCP - General Family Medicine 11/24/16 Training Mgr Relationship Specialty Start Date End Date Katie Garcia, DO [address] [place] [address] PCP - General Family Medicine 11/24/16 Training Mgr Relationship Specialty Start Date End Date Katie Garcia, DO [address] [place] [address] PCP - General Family Medicine 11/24/16 Training Mgr Relationship Specialty Start Date End Date Pcp, [place] [address] PCP - General Family Medicine 12/25/23 Training Mgr Relationship Specialty Start Date End Date Pcp, [place] [address] PCP - General Family Medicine 12/25/23 Training Mgr Relationship Specialty Start Date End Date Pcp, [place] [address] PCP - General Family Medicine 12/25/23 Training Mgr Relationship Specialty Start Date End Date Parish Dean APRN-VETERINARY ASSISTANT [address] [place] [address], [place] [phone] PCP - General Nurse Practitioner 02/11/24 Training Mgr Relationship Specialty Start Date End Date Parish Dean APRN-VETERINARY ASSISTANT [address] [place] [address], [place] [phone] PCP - General Nurse Practitioner 02/11/24 Training Mgr Relationship Specialty Start Date End Date Parish Dean APRN-VETERINARY ASSISTANT [address] [place] [address], [place] [phone] PCP - General Nurse Practitioner 02/11/24 Training Mgr Relationship Specialty Start Date End Date Parish Dean APRN-VETERINARY ASSISTANT [address] [place] [address], [place] [phone] PCP - General Nurse Practitioner 02/11/24 Training Mgr Relationship Specialty Start Date End Date Parish Dean APRN-VETERINARY ASSISTANT [address] [place] [address], [place] [phone] PCP - General Nurse Practitioner 02/11/24 Training Mgr Relationship Specialty Start Date End Date Parish Dean APRN-VETERINARY ASSISTANT [address] [place] [address], [place] [phone] PCP - General Nurse Practitioner 02/11/24 Training Mgr Relationship Specialty Start Date End Date Parish Dean APRN-VETERINARY ASSISTANT [address] [place] [address], [place] [phone] PCP - General Nurse Practitioner 02/11/24 Training Mgr Relationship Specialty Start Date End Date Parish Dean [facility] [address] [place] [address], [place] [address] PCP - General Nurse Practitioner 06/12/24 Training Mgr Relationship Specialty Start Date End Date YoungKatie keller DO PCP - General 07/03/07 Training Mgr Relationship Specialty Start Date End Date Katie Garcia DO PCP - General 07/03/07 Training Mgr Relationship Specialty Start Date End Date Parish Dean LOAD MANAGER-[facility] [address] [place] [address], [place] [phone] PCP - General Nurse Practitioner 06/12/24 Training Mgr Relationship Specialty Start Date End Date TosinKatie barkley DO PCP - General 07/03/07 Training Mgr Relationship Specialty Start Date End Date YoungKatie keller DO PCP - General 07/03/07 Training Mgr Relationship Specialty Start Date End Date Jermaine ParishMANDEEP-[facility] [address] [place] [address], [place] [phone] PCP - General Nurse Practitioner 06/12/24 Training Mgr Relationship Specialty Start Date End Date Parish Dean APRN-VETERINARY ASSISTANT [address] [place] [address], [facility] [place] [phone] PCP - General Nurse Practitioner 06/12/24 Training Mgr Relationship Specialty Start Date End Date TosinfilippoKatie DO Maryam PCP - General 07/03/07 Training Mgr Relationship Specialty Start Date End Date Katie Garcia DO [place] PCP - General 07/03/07 Training Mgr Relationship Specialty Start Date End Date TosinfilippoKatie DO [place] PCP - General 07/03/07 Training Mgr Relationship Specialty Start Date End Date Katie Garcia DO [place] PCP - General 07/03/07 Training Mgr Relationship Specialty Start Date End Date Parish Dean APRN-VETERINARY ASSISTANT [address] [place] [address], [facility] Ingrid [facility] [place] [phone] PCP - General Nurse Practitioner 06/12/24 Training Mgr Relationship Specialty Start Date End Date Parish Dean APRN-[facility] [address] [place] [address], [facility] [place] [phone] PCP - General Nurse Practitioner 06/12/24 Training Mgr Relationship Specialty Start Date End Date Parish Dean APRN-[facility] [address] [place] [address], [facility] [place] [phone] PCP - General Nurse Practitioner 06/12/24 Training Mgr Relationship Specialty Start Date End Date Parish Dean [facility] [address] [place] [address] [place] [phone] PCP - General Nurse Practitioner 06/12/24 Training Mgr Relationship Specialty Start Date End Date Katie Garcia DO PCP - General 07/03/07 Training Mgr Relationship Specialty Start Date End Date Parish Dean [facility] [address] [place] [address] [place] [phone] PCP - General Nurse Practitioner 06/12/24 Training Mgr Relationship Specialty Start Date End Date DeanParish lawrence [facility] [address] [place] [address] Ingrid [facility] [place] [phone] PCP - General Nurse Practitioner 06/12/24 FOR RECORDS PERTAINING TO PATIENTS WHO ARE OR HAVE BEEN ENROLLED IN A CHEMICAL DEPENDENCY/SUBSTANCEABUSE PROGRAM, SOME INFORMATION MAY BE OMITTED. This clinical summary was aggregated from multiple sources. Caution should be exercised in using it in the provision of clinical care. This summary normalizes information from multiple sources, and as a consequence, information in this document may materially change the coding, format and clinical context of patient data. In addition, data may be omitted in some cases. CLINICAL DECISIONS SHOULD BE BASED ON THE PRIMARY CLINICAL RECORDS. [facility] [email or web address] [facility]. provides no warranty or guarantee of the accuracy or completeness of information in this document.
== END 2025-01-19 16:17 | disposition home or self-care (01) ==
PROVIDERS: Emergency Provider Emergency Medicine; PCP Family Medicine
DX: S46.911A Strain of unspecified muscle, fascia and tendon at shoulder and upper arm level, right arm, initial encounter (principal); S69.91XA Unspecified injury of right wrist, hand and finger(s), initial encounter; X50.1XXA Overexertion from prolonged static or awkward postures, initial encounter
CPT/HCPCS: 73110; 96372; 99284; J1885